=== PATIENT | female | born 1945 | race Caucasian/White ===

== ENCOUNTER 2017-12-02 09:03 | Day surgery (SDC) | payer MEDICARE, OTHER, SELFPAY ==
[2017-12-02] VITALS (7 sets, daily range): BP systolic 138–152; BP diastolic 68–77; PULSE 64–77; RESP 16–18; TEMP 36–36.5; O2SAT 97–99; BMI 25.2
[2017-12-02] MEDS: Mupirocin Ointment 22gm Tube 1 APPLIC (12:46)
--- NOTE | 2017-12-02 13:48 | PCM.IMDPSTOP ---
Immediate Post-Op Note Date of Procedure: 12/02/17 Primary Surgeon/Physician: Hector Christopher x ray examiner of aircraft: Jose Olivas. 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 Post-Operative Diagnosis: Same. 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 Description of Surgical Findings:: 72 year old female presents with a lesion on his left upper medial forehead by the hairline that had increased in size over the last several months. It developed some scabbing and irregular borders. It is erythematous with some ulceration. She denied any bleeding. The lesion was biopsied by her PCP, Dr. Billings, on 11/04/17, and the pathology showed squamous cell carcinoma in situ. 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 Size of skin graft left upper medial forehead by hairline - 5 x 4.2 cm. Estimated Blood Loss: 10 ml. Specimen's removed: Squamous cell carcinoma in situ [facility] Drains: None. Type of Anesthesia:: Local MAC - xylocaine with epinephrine and IV sedation. - Admit VTE Documentation VTE Present on Admission: No VTE Mechan Device Prophylaxis: SCD's VTE Pharm Prophylaxis ordered?: No
--- NOTE | 2017-12-02 13:55 | PCM.DC ---
You will use the following diet at home:: No restrictions Discharge Activity: May Not Shower - until the forehead skin graft dressing is removed in the office., - - keep head elevated. no heavy lifting. May shower in (days): 6 - after changing forehead skin graft dressing in office. May resume sexual activity in: 10-14 days Ice area for (Minutes): 5 - as needed for facial swelling. Weight Bearing Status: Weight bearing as tolerated Lifting Restrictions: 10 lbs. Keep extremity elevated above heart level: - - elevate head. Call your doctor if your incision/area has: Continuous Slow Oozing, Sudden Increased Bleeding, Increased Pain/ Swelling, Increased Redness, Foul Smelling Discharge, Swelling at the incision site Call your doctor if you observe: Fever of 101 or Higher, Coldness, Increased Pain, Shortness of breath, Chest pain, Calf discomfort, Uncontrolled pain Suture Line Care: - - after skin graft dressing forehead removed in the office, apply antibiotic ointment to skin graft and suture lines daily. Change Dressing in (Days):: 2 - neck dressings only. Remove Dressing in (days):: 6 - will remove forehead skin graft dressing in the office. Cleanse incision/area with: - - may get skin graft wet in the shower after the forehead skin graft dressing is removed in the office. Allergies/Adverse Reactions: Allergies No Known Allergies Allergy (Unverified 11/27/17 14:36) Medications to take at Discharge clopidogrel 75 mg tablet 75 mg PO QDAY 11/14/17 lisinopril 20 mg tablet 20 mg PO QDAY 11/14/17 pravastatin 40 mg tablet 40 mg PO QDAY 11/14/17 Clindamycin HCl [Cleocin] 300 mg PO TID #21 cap 12/02/17 Lactobacillus Acidophilus/Fos [Acidophilus Probiotic Tablet] 1 ea PO BID #20 tab 12/02/17 Oxycodone HCl/Acetaminophen [Percocet 5/325] 1 - 2 tab PO 4X/DAY PRN PRN 4 Days #30 tab 12/02/17 The following prescriptions were given: Oxycodone HCl/Acetaminophen [Percocet 5/325] 1 - 2 tab PO 4X/DAY PRN PRN 4 Days #30 tab PRN Reason: Pain Lactobacillus Acidophilus/Fos [Acidophilus Probiotic Tablet] 1 ea PO BID #20 tab Clindamycin HCl [Cleocin] 300 mg PO TID #21 cap Primary Care Physician: River Billings [Primary Care Provider] - Test Results: Test results from this visit will be discussed in further detail at your follow-up appointment, if applicable. Please Follow Up With: Hector Christopher MD When: friday12/08/17. call [phone] for appt. Proposed Discharge Date: 12/02/17
--- NOTE | 2017-12-02 18:37 | PCM.OPRPT ---
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 Post-Operative Diagnosis: Same. 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 Description of Surgical Findings:: 72 year old female presents with a lesion on his left upper medial forehead by the hairline that had increased in size over the last several months. It developed some scabbing and irregular borders. It is erythematous with some ulceration. She denied any bleeding. The lesion was biopsied by her PCP, Dr. Billings, on 11/04/17, and the pathology showed squamous cell carcinoma in situ. Patient was informed of the risks and complications of the procedure including alternatives to surgery. These were discussed with the patient personally. Patient voices understanding and wishes to proceed. Some of the risks and complications were included in a form from the [employer]. Size of skin graft left upper medial forehead by [facility] - 5 x 4.2 cm. 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 Type of Anesthesia:: Local MAC - xylocaine with epinephrine and IV sedation. Specimen's removed: Squamous cell carcinoma in situ left upper medial forehead by [facility] to Pathology. Drains: None. Estimated Blood Loss (mL): 10 ml. Description of Procedure: Patient was taken to OR in supine position and was given IV sedation. The face and neck were prepped and draped in the usual fashion. SCD's were placed for DVT prophylaxis. Perioperative antibiotics were given intravenously. The forehead carcinoma and bilateral neck areas were infiltrated with xylocaine and epinephrine. After waiting 5 minutes for the anesthetic to take effect, I excised the ulcerated squamous cell carcinoma in situ with a 1 cm margin in all directions down into the subcutaneous tissue. A suture was marked at the 12 oclock position for pathology orientation. It was then sent to Pathology for analysis to rule out carcinoma at the margins. The size of the defect for the skin graft was 5 x 4.2 cm or 21 cm2. I excised ellipses of skin from the bilateral neck area down into the subcutaneous tissue. The subcutaneous tissue was removed from the undersurface of the dermis thus fashioning a full thickness skin graft. The skin grafts were placed in saline. The donor incisions were closed in multiple layers after hemostasis was obtained with electrocautery. The deep dermis and subcutaneous tissue was approximated with 5-0 Monocryl interrupted sutures. The skin was approximated with 5-0 Prolene vertical mattress interrupted sutures. Antibiotic ointment was applied to the suture lines followed by Op-Site dressings. The full thickness skin grafts were placed in the defect on the left upper medial forehead by the hairline and secured to the skin edge with 5-0 Chromic interrupted sutures. 5-0 Chromic sutures were also placed for central quilting stabilization. Antibiotic ointment was applied to the skin graft followed by xeroform gauze and cotton balls soaked in saline and secured with 4-0 Nylon tie-over stent suture dressing. Patient tolerated the procedure well and was sent to PACU in satisfactory condition. She will be sent home in satisfactory condition on antibiotics and pain medication. She will keep her head elevated during the initial postop period. She will followup in the office in a week for a wound check with removal of the skin graft dressing as well as for discussion of the pathology report and to remove the sutures. Grafts/Implants Used: None. - Complications None. - Admit VTE Documentation VTE Present on Admission: No VTE Mechan Device Prophylaxis: SCD's VTE Pharm Prophylaxis ordered?: No Code Visit Surgery Charges CPT - 11351 ICD-10 - D04.39 58982 D04.39 62572 D04.39
--- NOTE | 2017-12-03 | LES_PTH ---
PATIENT: MARIE BLAIR LOC: [facility] [place] U#:[id number] AGE/SX: 72/F ROOM: RE12/02/[address]: Dr. Hector Christopher MD : 1945 BED: DIS: 12/02/2017 SPEC #: [id number] RECD: 12/03/17 13:01 STATUS: LISS APRIL #: [id number] CECILIA: 12/03/17 00:[address]: Hector Christopher DEPT: SURGICAL PATHOLOGY RECD BY: Antony Matthews ENTERED: 12/03/17 13:02 SP TYPE: Lesion OTHR DR: Dr. River Billings MD Tissues: Skin of forehead Procedures: Surgery Specimen Level IV HEADER OPERATION: Excision lesion, skin grafting, upper medial forehead PRE-OP DIAGNOSIS: Squamous cell carcinoma in situ of skin of forehead TISSUE SUBMITTED: Squamous cell carcinoma skin of forehead, suture at 12 o?clock MICROSCOPIC DIAGNOSIS Upper medial forehead skin lesion, excisional biopsy: Squamous cell carcinoma in situ, completely excised. Actinic keratosis and solar elastosis. JENNIFER:gita 12/04/17 COMMENT Case has been reviewed in consultation with Dr. Garcia who concurs with the above diagnosis. IDC:AM MICROSCOPIC DESCRIPTION Slides are reviewed. GROSS DESCRIPTION Received in fixative is one container labeled with the patient's name and designated squamous cell carcinoma skin of forehead, suture at 12 o'clock. The specimen consists of an ovoid piece of dolan-white skin measuring 4 x 3 cm and up to 0.3 cm in thickness. The resection margins are inked as follows: 123 o?clock ? black, 3-6 o?clock ? blue, 6-9 o?clock ? green, 9-12 o?clock ? yellow. The specimen is serially sectioned and submitted entirely in six cassettes from one end to another end. / JENNIFER:gita 12/03/17 TC:0 CPT: 45699
== END 2017-12-02 15:34 | disposition home or self-care (01) ==
LOC: SDC 09:05 → AC 09:06
PROVIDERS: Family Provider Family Medicine; PCP Family Medicine; Visit Provider Surgery
PROC: (CPT 11646; principal; 2017-12-02 10:30)
DX: D04.39 Carcinoma in situ of skin of other parts of face (principal); L57.0 Actinic keratosis; L57.8 Other skin changes due to chronic exposure to nonionizing radiation; I65.23 Occlusion and stenosis of bilateral carotid arteries; I10 Essential (primary) hypertension; R23.3 Spontaneous ecchymoses; E78.00 Pure hypercholesterolemia, unspecified; Z86.73 Personal history of transient ischemic attack (TIA), and cerebral infarction without residual deficits; Z79.82 Long term (current) use of aspirin; Z79.01 Long term (current) use of anticoagulants; Z79.899 Other long term (current) drug therapy
CPT/HCPCS: 11646; 15240; 15241; 88305; J7120

== ENCOUNTER → 2023-03-04 | Outpatient (CLI) | payer MEDICARE, OTHER, SELFPAY ==
[2023-03-04 17:35] LABS: Absolute Lymphocyte Count 2.37 X10^3/uL (0.83-4.51); Absolute Neutrophil Count 3.8 X10^3/uL (2.0-7.7); Basophil# 0.04 X10^3/uL; Basophil% 0.6 % (0-1); Eosinophil# 0.05 X10^3/uL; Eosinophils% 0.7 % (0-5); Hematocrit 40.9 % (37-47); Hemoglobin 12.4 g/dL (12.0-15.0); Lymphocyte # 2.37 X10^3/ul (0.83-4.51); Mean Corp Hgb Conc 30.3 g/dL (32-36); Mean Corpuscular Hgb 28.5 pg (27.0-32.0); Mean Platelet Vol. 10.7 fl (6.2-12.0); Monocyte% 7.4 % (0-10); NRBC Flagged by Analyzer 0 % (0-5); Neutrophil # 3.79 X10^3/uL (2.7-7.7); Platelet Count 273 K/mm3 (150-450); RBC Distribution Width CV 13.4 % (11.6-14.6); RBC Distribution Width SD 46.4 fl (35.1-43.9); Red Blood Count 4.35 M/mm3 (4.2-5.4); White Blood Count 6.8 K/mm3 (4.4-11.0)
[2023-03-04 18:17] LABS: AST(SGOT) 16 U/L (15-37); Alanine Aminotransfer ALT/SGPT 21 U/L (13-56); Albumin, Serum 3.9 g/dL (3.2-5.0); Alkaline Phosphatase 72 U/L (45-117); Anion Gap 6 (5-15); BUN 16 mg/dL (7-18); Calcium,Total 9.4 mg/dL (8.5-10.1); Chloride 107 mmol/L (98-107); Cholesterol 157 mg/dL (200); Creatinine, Serum 0.76 mg/dL (0.55-1.02); EST Glomerular Filtration Rate 78 mL/min (>60); Est Glom Filt Rate - Afr Amer 94 mL/min (>60); Globulin 3.8 g/dL (2.2-4.2); Glucose 91 mg/dL (74-106); High Density Lipoprotein 76 mg/dL; Potassium 4.3 mmol/L (3.5-5.1); Protein, Total 7.7 g/dL (6.4-8.2); Sodium Level 140 mmol/L (136-145); Thyroid Stim Hormone (TSH) 1.18 uIU/mL (0.358-3.74); Triglycerides 92 mg/dL; Very Low Density Lipoprotein 18 mg/dL (5-40)
== END | disposition home or self-care (01) ==
LOC: MFPLAB 15:34
PROVIDERS: PCP Family Medicine; Visit Provider Family Medicine
DX: I10 Essential (primary) hypertension (principal)
CPT/HCPCS: 36415; 80053; 80061; 84443; 85025

== ENCOUNTER → 2023-11-07 | Outpatient (CLI) | payer MEDICARE, OTHER, SELFPAY ==
--- NOTE | 2023-11-07 08:41 | US_ITS ---
ACR Level 3 findings have been noted. An addendum which confirms receipt of the report will follow. HISTORY: RUQ pain. TECHNIQUE: Guevara scale and color doppler imaging was performed of the right upper quadrant. 89 images. COMPARISON: None. FINDINGS: LIVER: 14.3 cm in length. Homogeneous echotexture without focal lesion demonstrated. No intrahepatic ductal dilatation. MAIN PORTAL VEIN: Patent with flow in the appropriate direction. COMMON BILE DUCT: 7 mm in diameter. GALLBLADDER: Shadowing gallstones identified with heterogeneous appearance of the gallbladder. 5 mm wall thickness. No pericholecystic fluid. Sonographic Chin sign negative. PANCREAS: Visualized proximal portion unremarkable. RIGHT KIDNEY: 9.9 cm in length. No hydronephrosis or gross renal mass demonstrated. US/Abdomen Limited IMPRESSION: Cholelithiasis with gallbladder wall thickening and heterogeneous appearance of the gallbladder, raising the possibility of gallbladder mass rather than acute cholecystitis. Consider correlation with CT with contrast or MRI/MRCP. Borderline dilated common bile duct. Electronically Signed: Snehal Coffman MD at 10:09 EDT ,
== END | disposition home or self-care (01) ==
PROVIDERS: PCP Family Medicine; Referring Provider Family Medicine; Visit Provider Family Medicine
DX: I10 Essential (primary) hypertension (principal)
CPT/HCPCS: 76705

== ENCOUNTER → 2023-11-11 | Outpatient (CLI) | payer MEDICARE, OTHER, SELFPAY ==
--- NOTE | 2023-11-11 12:53 | CT_ITS ---
We are attempting to reach an attending provider to discuss findings. An addendum with communication details will be sent when the communication is complete. STUDY: CT ABDOMEN WITH CONTRAST REASON FOR EXAM: Female, 78 years old. GALLBLADDER MASS RADIATION DOSAGE (If Supplied By Facility): CTDIvol = ( 10.93 ) mGy, DLP = ( 390.05 ) mGycm TECHNIQUE: Transaxial images were obtained post I.V. administration of Oral and amp; IV Gastrografin and amp; 75mL Isovue-300, and with oral contrast. Sagittal and coronal images were reconstructed. Individualized dose optimization techniques were used for this CT. COMPARISON: Ultrasound 11/07/2023 FINDINGS: The visualized lung bases are unremarkable. The visualized portions of the heart are within normal limits. Elevated right hemidiaphragm. Normal liver. Contracted gallbladder with a multiple gallstones wall thickening and stranding in the fat surrounding the fundus the gallbladder worrisome for acute cholecystitis. Mild intrahepatic biliary ductal dilatation. Normal spleen. Normal pancreas. Normal bilateral adrenal glands. Normal right kidney. Normal left kidney. Normal visualized stomach. Normal small intestine. There are multiple colonic diverticula consistent with diverticulosis. The appendix is visualized and appears normal. Normal abdominal aorta. Normal inferior vena cava. Normal retroperitoneum. Normal abdominal wall. Mild dextroscoliosis lumbar spine with degenerative disc disease. CT/Abdomen WITH IV Contrast IMPRESSION: Suspect acute cholecystitis and clinical correlation is recommended. Electronically Signed: Jerry Kolb MD at 12:09 EDT ,
[2023-11-11 14:33] LABS: CREATININE FINGERSTICK < 1.0 mg/dL (0.55-1.02); EGFR FINGERSTICK > 60.0000 mL/min (>60)
== END | disposition home or self-care (01) ==
PROVIDERS: PCP Family Medicine; Referring Provider Family Medicine; Visit Provider Family Medicine
DX: K82.8 Other specified diseases of gallbladder (principal)
CPT/HCPCS: 74160; Q9967

== ENCOUNTER 2023-11-18 08:54 | Emergency (ER) | payer MEDICARE, OTHER, SELFPAY ==
[2023-11-18] VITALS (8 sets, daily range): BP systolic 143–173; BP diastolic 79–126; PULSE 71–100; RESP 16–18; TEMP 36.3–36.7; O2SAT 94–99; BMI 23.6
--- NOTE | 2023-11-18 09:17 | US_ITS ---
STUDY: ABDOMINAL ULTRASOUND - RIGHT UPPER QUADRANT REASON FOR VISIT: Female, 78 years old ABDOMEN PAIN TECHNIQUE: Ultrasound evaluation of the right upper quadrant was performed with real-time and static zhou-scale imaging. TECHNICAL QUALITY: Limited. Examination limited by bowel gas. COMPARISON: Comparison is made with prior study November 07, 2023. FINDINGS: Liver: The liver measures 14.9 cm. There is increased echogenicity consistent with fatty infiltration. The bile ducts are within normal limits. There is hepatic color flow. The direction of portal flow is hepatopetal. There is no demonstrated mass lesion. Gallbladder: Normal distended gallbladder. The gallbladder wall is thickened and measures 7.4 mm. There is a negative sonographic Chin''s sign. There is pericholecystic fluid. There are multiple echogenic structures within the gallbladder, consistent with multiple gallstones. Common Bile Duct (C.B.D.): The common bile duct is dilated and measures 9 mm. Questionable stone in the common bile duct measuring 8 mm x 5 mm x 5 mm. Pancreas: Normal size of the head, body of the pancreas. The tail portion is obscured due to overlying bowel gas. There is normal echogenicity of the pancreas. There is no demonstrated pancreatic mass or cyst. Right Kidney: Normal size of the right kidney. The right kidney measures 9.7 cm x 5.1 cm x 3.5 cm. Normal renal cortex. The right cortex measures 1.1 cm. There is no demonstrated renal mass or cyst. There is no right hydronephrosis. US/Gallbladder IMPRESSION: Fatty infiltration of the liver. Multiple gallstones and thickened gallbladder wall. Small amount of pericholecystic fluid. Dilated common duct with possible calculus within the common bile duct. Electronically Signed: Martin James MD at 11:00 EDT ,
--- NOTE | 2023-11-18 09:18 | ED.VIS.GI ---
HPI HPI - GI History of Present Illness Chief Complaint: Abd Pain Informant: patient Abdominal Pain/Flank Pain Onset: Days Context: Gradual Onset Timing: Continuous Location: RUQ Current Severity: Mild Maximum Severity: Mild Worsened by: Nothing Relieved by: Nothing Narrative Narrative: 78-year-old female history of recently diagnosed gallstones and hypertension. She has had a prior appendectomy. Was diagnosed with gallstones and has been having intermittent abdominal pain. She was supposed to see general surgery today Dr. Madrigal. Office called her and 1 to come to the emergency department instead. Prior similar symptoms: Yes Recent Illness/Hospitalization: No PFSH PFSH Medical History Squamous cell carcinoma in situ Skin lesion Atherosclerosis of both carotid arteries Pure hypercholesterolemia Benign essential HTN Home Medications ?Medication ?Instructions ?Recorded ?Last Taken ?Type lisinopril 20 mg tablet 10 mg PO DAILY BLOOD PRESSURE 11/14/17 12/02/17 07:30 History atorvastatin 20 mg tablet 20 mg PO DAILY CHOLESTEROL 11/18/23 Unknown History Allergy/AdvReac Type Severity Reaction Status Date / Time No Known Allergies Allergy Verified 11/18/23 08:55 Family History Unknown No problems noted. Family History no significant family his Surgical History History of squamous cell carcinoma excision Social History Smoking Status: Never smoker alcohol intake: never substance use type: does not use additional social history: DOES USE ASPIRIN DOES NOT USE IBUPROFEN ROS ROS ED ROS Narrative Right upper quadrant abdominal pain Review of Systems ROS Unobtainable: Denies due to encephalopathy Constitutional Constitutional ED: Denies chills or fever(s) ENT ENT ED: Denies ear pain Cardiovascular Cardiovascular: Denies chest pain Respiratory/Chest Respiratory/Chest: Denies cough or dyspnea Gastrointestinal Gastrointestinal: Reports abdominal pain Genitourinary Genitourinary ED: Denies dysuria or hematuria Musculoskeletal Musculoskeletal: Denies arthralgias Integumentary Denies abscess or Abrasions Neurologic Neurologic: Denies headache(s) Psychiatric Psychiatric: Denies anxiety or depression Endocrine Endocrinology: Denies polydipsia or polyphagia Hematologic/Lymphatic Hematologic/Lymphatic: Denies easy bleeding or easy bruising Allergic/Immunologic Allergic/Immunologic ED: Denies mouth swelling, tongue swelling or urticaria EXAM Physical Exam Narrative Exam Narrative: 78-year-old female no acute distress. Vital signs stable afebrile. She is sitting upright in bed. at bedside. She is in no distress. H EENT exam unremarkable. Moist mucous membranes. Neck nontender. Lungs clear. Heart regular rate and rhythm no murmur. Rate about 90. Abdomen is soft nondistended. Normal bowel sounds without peritoneal signs. She does have tenderness in the right upper quadrant. Right lower quadrant and left-sided abdomen are nontender. No hernia or mass. No obstruction. Back nontender. Moving all 4 extremities. Nontender no edema. She is awake and alert. No focal motor deficits. Const Vital Signs: 11/18/23 08:55 11/18/23 10:53 Temperature 97.3 F L Temperature Source Temporal Pulse Rate 100 73 Respiratory Rate 18 16 Blood Pressure 150/82 H 158/84 H Blood Pressure Mean 104 108 Pulse Ox 98 97 Oxygen Delivery Method Room Air Room Air Positive well nourished and well developed; Negative for obese, cachectic, contractures or unkempt General Appearance ED: well developed and NAD; Negative for unkempt, cachectic, contractures or pallor Nutritional Appearance: Negative for cachectic or obese HEENT Reports moist mucous membranes normocephalic and atraumatic; Negative for trauma or tenderness Eyes PERRL and EOMs intact bilaterally General Eye ED: Negative for pale conjunctiva or scleral icterus Neck no lymphadenopathy, supple and no JVD General: Negative for tenderness Carotids: Negative for other Lymph Lymphatic: Negative for other Resp normal respiratory effort and clear to auscultation bilaterally Effort and Inspection: Negative for respiratory distress Auscultation: Negative for rales, rhonchi, wheezes or diminished lung sounds Cardio regular rate, regular rhythm, S1 normal heart sound, S2 normal heart sound and no murmurs Rate: Negative for bradycardia or tachycardic Rhythm: Negative for abnormal rhythm GI non-distended and no masses; Negative for non-tender GI Narrative: Right upper quadrant tenderness to deep palpation. Inspection: Negative for abdominal distention Auscultation: normoactive bowel sounds Palpation: tender; Negative for guarding or rebound tenderness present Back/Spine no CVA tenderness Neuro CN's II-XII intact bilaterally and moves all extremities Sensorium / Orientation: alert, oriented to person, oriented to place and oriented to time Motor Exam: strength 5/5 throughout Psych mental status grossly normal and thought process normal Appearance: Negative for unkempt Attitude: No agitated Mood & Affect: Negative for depressed, anxious or tearful Skin no wounds General Skin Exam: Negative for jaundice or pallor Lesions: no lesions Rashes: no rashes Trauma: Negative for abrasion Nails: Negative for discolored MDM MDM MDM Narrative Medical decision making narrative: 78-year-old female with right upper quadrant pain and diagnosis recently of gallstones. She will be evaluated for possible acute cholecystitis versus choledocholithiasis versus other. Screening labs and ultrasound. Currently she does not anything for pain or nausea. Repeat exam patient doing well 11:50 AM. We discussed all of her test results. Given that she has gallstones in the common bile duct she will be admitted to the hospitalist for GI to do an ERCP. I did speak to Dr. Oden of GI. And then surgery can decide if and when they want to do a cholecystectomy. History & Record Review Discussion w/independent historian: Patient and Family Additional record(s) reviewed:: Prior inpatient record, Prior outpatient record and Prior ED visit Lab Data Attestation: I reviewed the patient's lab results. Lab results narrative: CBC white count 7.5. H&H 11.7 and 37. Platelets 333. Chemistry showed gap 4. Normal BUN and creatinine. Glucose 99. Liver enzymes normal. Not elevated. Lipase 24. Labs: Laboratory Results - last 24 hr 11/18/23 09:24 WBC 7.5 RBC 4.13 L Hgb 11.7 L Hct 37.3 MCV 90.3 MCH 28.3 MCHC 31.4 L RDW Std Deviation 47.6 H RDW Coeff of Adelfo 14.4 Plt Count 333 MPV 9.5 Immature Gran % (Auto) 0.300 Neut % (Auto) 61.3 Lymph % (Auto) 26.5 Kings % (Auto) 9.4 Eos % (Auto) 2.0 Baso % (Auto) 0.5 Absolute Neuts (auto) 4.6 Absolute Lymphs (auto) 1.98 Nucleated RBC % 0 Sodium 140 Potassium 4.5 Chloride 108 H Carbon Dioxide 28.0 Anion Gap 4 L BUN 15 Creatinine 0.81 Estim Creat Clear Calc 57.74 Est GFR (MDRD) Af Amer 88 Est GFR (MDRD) Non-Af 73 BUN/Creatinine Ratio 18.5 Glucose 99 Calcium 10.3 H Total Bilirubin 0.60 AST 10 L ALT 16 Alkaline Phosphatase 72 Total Protein 7.4 Albumin 3.2 Globulin 4.2 Albumin/Globulin Ratio 0.8 L Lipase 24 Radiography Diagnostic Testing: Clinical Impression(s) from Imaging Studies Gallbladder Ultrasound 11/18/23 09:17 IMPRESSION: Fatty infiltration of the liver. Multiple gallstones and thickened gallbladder wall. Small amount of pericholecystic fluid. Dilated common duct with possible calculus within the common bile duct. Electronically Signed: Martin James MD at 11:00 EDT , Discharge Plan Triage Chief Complaint: Abd Pain ED Provider: Jose Duke Dx/Rx/DC Orders Clinical Impression: Abdominal pain, Gallstones, Choledocholithiasis Prescriptions: No Action lisinopril 20 mg tablet 10 mg PO DAILY atorvastatin 20 mg tablet 20 mg PO DAILY Primary Care Provider: Joe Tim Referrals: Joe Tim MD [Primary Care Provider] - Print Language: Lithuanian Disposition Disposition: Acute Care [facility]
[2023-11-18 09:29] LABS: Absolute Lymphocyte Count 1.98 X10^3/uL (0.83-4.51); Absolute Neutrophil Count 4.6 X10^3/uL (2.0-7.7); Basophil# 0.04 X10^3/uL; Basophil% 0.5 % (0-1); Eosinophil# 0.15 X10^3/uL; Hematocrit 37.3 % (37-47); Hemoglobin 11.7 g/dL (12.0-15.0); Lymphocyte # 1.98 X10^3/ul (0.83-4.51); Lymphocyte % 26.5 % (19-41); Mean Corp Hgb Conc 31.4 g/dL (32-36); Mean Corpuscular Hgb 28.3 pg (27.0-32.0); Mean Corpuscular Volume 90.3 fL (81-99); Mean Platelet Vol. 9.5 fl (6.2-12.0); Monocyte% 9.4 % (0-10); NRBC Flagged by Analyzer 0 % (0-5); Neutrophil # 4.59 X10^3/uL (2.7-7.7); Neutrophil % 61.3 % (47-70); Platelet Count 333 K/mm3 (150-450); RBC Distribution Width CV 14.4 % (11.6-14.6); RBC Distribution Width SD 47.6 fl (35.1-43.9); Red Blood Count 4.13 M/mm3 (4.2-5.4); White Blood Count 7.5 K/mm3 (4.4-11.0)
[2023-11-18 09:55] LABS: ALB/GLOB Ratio 0.8 RATIO (0.9-2.4); AST(SGOT) 10 U/L (15-37); Alanine Aminotransfer ALT/SGPT 16 U/L (13-56); Albumin, Serum 3.2 g/dL (3.2-5.0); Alkaline Phosphatase 72 U/L (45-117); Anion Gap 4 (5-15); BUN 15 mg/dL (7-18); BUN/Creat Ratio 18.5 RATIO (10-20); Calcium,Total 10.3 mg/dL (8.5-10.1); Chloride 108 mmol/L (98-107); Creatinine, Serum 0.81 mg/dL (0.55-1.02); EST Glomerular Filtration Rate 73 mL/min (>60); Est Glom Filt Rate - Afr Amer 88 mL/min (>60); Estimated Creatinine Clearance 57.74 ml/min; Globulin 4.2 g/dL (2.2-4.2); Glucose 99 mg/dL (74-106); Lipase 24 U/L (13-75); Potassium 4.5 mmol/L (3.5-5.1); Protein, Total 7.4 g/dL (6.4-8.2); Sodium Level 140 mmol/L (136-145)
--- NOTE | 2023-11-18 12:01 | HP.PCM.HOS_ITS ---
HPI - General General Date of Admission: 11/18/23 Date of Service: 11/18/23 Chief Complaint: Abdominal pain HPI Narrative The patient is a 78 y/o F w/ PMHx: Hx TIA, HTN, HLD, Carotid disease, Possible chronic normocytic anemia who presents to the [facility] ED on 11/18/23 with abdominal discomfort recently diagnosed with gallstones as well as hypertension with intermittent abdominal colicky pain with plan for evaluation by general surgery on day of presentation specifically Dr. Madrigal; however, she was called by the surgery office and recommended that she present to the ED for further evaluation to be cautious. She reports the pain is being gradual in onset over the last several days and now continuous specifically focal to the right upper quadrant with tenderness to palpation in the right quadrants. In the ED she notes mild nausea but no recent emesis. She notes that this has been ongoing for at least a week and not abating. Workup in the ED included T97.3, heart rate 100, BP 150/82, respiratory rate 18, 98% room air, CBC with WC 7.5, hemoglobin 0.7, MCV 90.3, platelet 333 without marked shift, CMP with chloride 108, calcium 10.3, hepatic profile unremarkable otherwise, gallbladder ultrasound with fatty infiltration of the liver, multiple gallstones and thickened gallbladder wall with a small amount of pericholecystic fluid, dilated common bile duct with possible calculus within the common bile duct. ED discussed case with gastroenterology for possible ERCP. Discussed patient presentation with Dr. Duke and patient will be administered IV Zosyn. [facility] Medical History (Updated 11/18/23 @ 15:[address] Marah Sebastian MD) History of TIA (transient ischemic attack) Squamous cell carcinoma in situ Atherosclerosis of both carotid arteries Pure hypercholesterolemia Benign essential HTN Home Medications ?Medication ?Instructions ?Recorded ?Last Taken ?Type lisinopril 20 mg tablet 10 mg PO DAILY BLOOD PRESSURE 11/14/17 12/02/17 07:30 History atorvastatin 20 mg tablet 20 mg PO DAILY CHOLESTEROL 11/18/23 Unknown History Allergy/AdvReac Type Severity Reaction Status Date / Time No Known Allergies Allergy Verified 11/18/23 08:55 Family History (Updated 11/18/23 @ 15:[address] Marah Sebastian MD) Mother CVA (cerebral vascular accident) Hypertension Father CAD (coronary artery disease) Hypertension Heart disease Myocardial infarction Family History no significant family his Surgical History S/P appendectomy History of squamous cell carcinoma excision Social History household members: spouse Smoking Status: Never smoker alcohol intake: never substance use type: does not use additional social history: DOES USE ASPIRIN DOES NOT USE IBUPROFEN ROS ROS Narrative Admission Review of Systems: CONSTITUTIONAL: No weight loss, fever, chills, + weakness or fatigue. HEENT: Eyes: No visual loss, blurred vision, double vision or yellow sclerae. Ears, Nose, Throat: No hearing loss, sneezing, congestion, runny nose or sore throat. SKIN: No rash or itching, lesions, wounds. CARDIOVASCULAR: No chest pain, chest pressure or chest discomfort, palpitations, edema, orthopnea, syncopal events. RESPIRATORY: No shortness of breath, cough or sputum, wheezing, hemoptysis. GASTROINTESTINAL: + anorexia, nausea, abdominal pain. No vomiting, diarrhea, melena, BRBPR. GENITOURINARY: No dysuria, frequency, urgency or retention. NEUROLOGICAL: No headache, dizziness, syncope, paralysis, ataxia, numbness or tingling in the extremities, focal weakness, change in bowel or bladder control, seizure. MUSCULOSKELETAL: + muscle, back pain, joint pain or stiffness. HEMATOLOGIC: + anemia, easy bleeding/bruising. LYMPHATICS: No enlarged nodes. No history of splenectomy. PSYCHIATRIC: No history of depression or anxiety. ENDOCRINOLOGIC: No reports of sweating, cold or heat intolerance. No polyuria or polydipsia. ALLERGIES: No history of asthma, hives, eczema or rhinitis. Vital Signs Vital Signs Vital Signs: 11/18/23 08:55 11/18/23 10:53 Temperature 97.3 F L Temperature Source Temporal Pulse Rate 100 73 Respiratory Rate 18 16 Blood Pressure 150/82 H 158/84 H Blood Pressure Mean 104 108 Pulse Ox 98 97 Oxygen Delivery Method Room Air Room Air Weight Weight: 155 lb 11.2 oz Body Mass Index (BMI) 23.6 Physical Exam Narrative Physical Examination: General: Awake, alert, oriented x 3 and cooperative, seated upright in the ED bed, fatigued, notes pain is currently controlled except with deep palpation, rates it 2-3 out of 10 when occurring, worse after oral intake. Skin: Normal color, normal turgor, no icterus, no cyanosis. HEENT: AT/NC, EOMI, PERRLA, moderately dry MM, no carotid bruits or JVD noted. Lungs: Mildly diminished, greater bases, proper effort, no rales, ronchi or wheezing. Heart: Regular rate and rhythm; no gallop, rub audible. Abdomen: Soft, discomfort to deeper right upper quadrant palpation with no rebound or guarding at this time, nondistended, hyperactive BS, no appreciated HSM. Extremities: No cyanosis, clubbing, or edema. Neurological: Patient awake, alert, oriented as noted, cognitive function intact; pupils equally reactive to light and accommodation, cranial nerves grossly normal, moving all 4 extremities, no focal deficits, strength mildly to moderately globally decreased secondary to acute presentation complaints. Psychiatric: Affect appears fatigued, no acute evidence of depressive or anxiety feelings. Results Lab / Micro Data 11/18/23 09:24 11/18/23 09:24 Labs: Laboratory Results - last 24 hr 11/18/23 09:24: WBC 7.5, RBC 4.13 L, Hgb 11.7 L, Hct 37.3, MCV 90.3, MCH 28.3, M CHC 31.4 L, RDW Std Deviation 47.6 H, RDW Coeff of Adelfo 14.4, Plt Count 333, MPV 9.5, Immature Gran % (Auto) 0.300, Neut % (Auto) 61.3, Lymph % (Auto) 26.5, [place] % (Auto) 9.4, Eos % (Auto) 2.0, Baso % (Auto) 0.5, Absolute Neuts (auto) 4.6, Absolute Lymphs (auto) 1.98, Nucleated RBC % 0, Sodium 140, Potassium 4.5, C hloride 108 H, Carbon Dioxide 28.0, Anion Gap 4 L, BUN 15, Creatinine 0.81, Estim Creat Clear Calc 57.74, Est GFR (MDRD) Af Amer 88, Est GFR (MDRD) Non-Af 73, BUN/Creatinine Ratio 18.5, Glucose 99, Calcium 10.3 H, Total Bilirubin 0.60, AST 10 L, ALT 16, Alkaline Phosphatase 72, Total Protein 7.4, Albumin 3.2, Globulin 4.2, Albumin/Globulin Ratio 0.8 L, Lipase 24 Imaging Radiology Impression Gallbladder Ultrasound 11/18/23 09:17 IMPRESSION: Fatty infiltration of the liver. Multiple gallstones and thickened gallbladder wall. Small amount of pericholecystic fluid. Dilated common duct with possible calculus within the common bile duct. Electronically Signed: Martin James MD at 11:00 EDT , Assessment & Plan Assessment/Plan (1) Choledocholithiasis: PLAN: Plan The patient is a 78 y/o F w/ PMHx: HTN, HLD, Carotid disease, Possible chronic normocytic anemia who presents to the [facility] ED on 11/18/23 with abdominal discomfort recently diagnosed with gallstones as well as hypertension with intermittent abdominal colicky pain with plan for evaluation by general surgery on day of presentation specifically Dr. Madrigal; however, she was called by the surgery office and recommended that she present to the ED for further evaluation to be cautious. #1. Acute abdominal pain secondary to acute choledocholithiasis with acute cholecystitis with currently normal appearing LFT/bilirubin of note: Discussed patient with Dr. Arriaga operations controller for surgery and given the timeline of onset and appearance of GB he recommends placement of cholecystostomy tube unfortunately IR is not available. Discussed with ED physician and patient will be transferred to tertiary facility for ERCP coupled with cholecystostomy tube. If they are unable to obtain a transfer bed in a timely manner Will admit to medical surgical floor, maintain on IVFs, NPO, request GI involvement as well as surgery involvement in the interim until transfer obtained, maintain on PPI, IV/po pain control, trend CMP, continue IV zosyn. #2. Normocytic anemia, possibly chronic, poor comparison data available: Admission hemoglobin 11.7, MCV 90.3, will continue to trend CBC and further investigate pending repeat level. #3. Hypertension: Continue home regimen including lisinopril, PRN hydralazine. #4. Hyperlipidemia: Given choledocholithiasis in case LFTs significantly rise will temporally hold statin therapy, resume once appropriate. #5. Carotid disease: In case of operative intervention needs of temporally hold aspirin therapy, continue hypertensive regimen, temporally on statin therapy as noted, resume once appropriate. #6. History TIA: Patient remotely took Plavix but has not in a long time she notes, would continue hypertensive regimen, temporally hold statin therapy in case rise of bilirubin/LFTs given choledocholithiasis concurrently. #7. DVT prophylaxis: SCDs, hold chemoprophylaxis given need for cholecystostomy tube and ERCP as noted awaiting transfer versus admission temporarily until bed availability at tertiary facility. #8. CODE status: Patient HCPOA is her and living will is currently in place. Discussed CODE status at length including difference between FULL code, DNR-CCA and DNR-CC status. Following discussions about the differences in these status, requested Full code status. Advanced Care Planning Face to Face Time: 16 minutes. Charges/Coding Visit Charges Inpatient E&M: 81611 Init Hosp L3 Procedures Hospitalists Procedures: 44674 Advncd Care Plan 30 Min
[2023-11-18] MEDS: Piperacil/Tazobactam 4.5 GM in 0.9% Normal Saline (100mL MB+) 100 ML IV (12:18)
--- NOTE | 2023-11-18 13:03 | ED.RN ---
CALLED [facility] FOR TRANSFER AND THEY ARE CLOSED TO MED/SURG TRANSFERS
--- NOTE | 2023-11-18 16:37 | NURSING ---
CALLED FOR UPDATE, NO BED YET
[2023-11-18] MEDS: Ondansetron 4 MG/2 ML Vial IV (16:40)
[2023-11-18] MEDS: morphine 8 MG/ML Syringe 6 MG IV (16:41)
--- NOTE | 2023-11-18 16:44 | ED.RN ---
pt requests pain meds and nausea meds. orders received
--- NOTE | 2023-11-18 18:12 | NURSING ---
NO BED YET
--- NOTE | 2023-11-18 20:25 | ED.RN ---
Report called to Rosalba Rodriguez [facility]. Questions/concerns answered
== END 2023-11-18 20:13 | disposition short-term general hospital (02) ==
PROVIDERS: Emergency Provider Emergency Medicine; PCP Family Medicine; Visit Provider Emergency Medicine
DX: K80.70 Calculus of gallbladder and bile duct without cholecystitis without obstruction (principal); I10 Essential (primary) hypertension; E78.00 Pure hypercholesterolemia, unspecified; K76.0 Fatty (change of) liver, not elsewhere classified; Z90.49 Acquired absence of other specified parts of digestive tract; Z79.899 Other long term (current) drug therapy
CPT/HCPCS: 76705; 80053; 83690; 85025; 96365; 96375; 96376; 99284; A4216; J2405

== ENCOUNTER 2024-02-10 13:39 | Day surgery (SDC) | payer MEDICARE, OTHER, SELFPAY ==
[2024-02-10] VITALS (10 sets, daily range): BP systolic 126–148; BP diastolic 66–73; PULSE 65–100; RESP 16; TEMP 36–36.6; O2SAT 96–100; BMI 21.6
--- NOTE | 2024-02-10 13:53 | EKG12_ITS ---
Test Reason : PRE OP Blood Pressure : */* mmHG Vent. Rate : 79 BPM Atrial Rate : 79 BPM P-R Int : 142 ms QRS Dur : 72 ms QT Int : 372 ms P-R-T Axes : -9 69 55 degrees QTcB Int : 426 ms Sinus rhythm with occasional Premature ventricular complexes Otherwise normal ECG No previous ECGs available Confirmed by ABBIE LEWIS, JANICE ([id number]), technical writer and editor ANGELITA CARRANZA ([id number]) on 02/11/2024 2:15:16 PM Referred By: Joe Tim Confirmed By: JANICE LEIVA MD
--- NOTE | 2024-02-10 14:30 | PRE.ANES_ITS ---
ASA Classification* ASA Classification ASA Classification: 3 Assessment & Plan Anesthesia* Anesthesia Assessment Anesthesia Assessment: Discussed sedation and/or anesthesia options, risks, benefits, and alternatives with patient/parents/legal guardian/POA. Questions invited. The patient/parents/legal guardian/POA seems to understand and agrees to proceed with anesthesia plan. Reviewed the physical assessment, medical history, allergy history and patient home medications list prior to surgery/procedure/anesthetic and documented any changes. Performed airway and anesthesia risk assessments. Anesthesia Type Anesthesia Type: General History Source History Obtained from:: Patient and Chart Anesthesia Focused Assessment* Temperature: 98 F Pulse Rate: 100 Blood Pressure: 135/73 Respiratory Rate: 16 Pulse Ox: 99 Oxygen Delivery Method: Room Air Airway Assessment Mouth opens: >3 cm Mallampati Score: III Teeth Condition: Dentures (Patient has full upper denture.) and Partial (Patient has a partial on the bottom. The rest of the teeth are tight.) Neck Range of motion (ROM): Full ROM Focused Labs Anesthesia Preop lab: CBC WBC 7.5 K/mm3 (4.4-11.0) 11/18/23 09:24 RBC 4.13 M/mm3 (4.2-5.4) L 11/18/23 09:24 Hgb 11.7 g/dL (12.0-15.0) L 11/18/23 09:24 Hct 37.3 % (37-47) 11/18/23 09:24 Plt Count 333 K/mm3 (150-450) 11/18/23 09:24 CHEMISTRY Potassium 4.5 mmol/L (3.5-5.1) 11/18/23 09:24 Sodium 140 mmol/L (136-145) 11/18/23 09:24 BUN 15 mg/dL (7-18) 11/18/23 09:24 Creatinine 0.81 mg/dL (0.55-1.02) 11/18/23 09:24 Glucose 99 mg/dL (74-106) 11/18/23 09:24 TSH 1.18 uIU/mL (0.358-3.74) 03/04/23 15:34 COAG Pre-Assessment Diagnosis/Proposed Procedure Planned Operative Procedure(s): ERCP Anesthesia History 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 When Was Last Pacemaker Check QUESTION #4 FULL TEXT: You/Your Family Experience fever (hyperthermia) with Anesthesia Last Oral Intake Last Oral intake: Last Oral Intake NPO since 08:00 02/10/24 14:04 Meds taken in AM with sips of Yes 02/10/24 14:04 water? Meds patient instructed to SEE MAR 02/10/24 14:04 take am of surgery Any additional information?: Yes NPO since: 08:00 (Patient had cereal with small amount of milk at 8 AM) PONV PONV - quality control industrial engineer: PONV - quality control industrial engineer Female Yes 02/06/24 12:22 HX of Motion Sickness No 02/06/24 12:22 HX of N/V After Surgery No 02/06/24 12:22 Non-Smoker Yes 02/06/24 12:22 Duration of Surgery greater No 02/06/24 12:22 than 60 minutes Number of Risk Factors 2 02/06/24 12:22 PONV Score Moderate Risk 02/06/24 12:22 Height & Weight Height & Weight: Anesthesia: Height & Weight Height 5 ft 8 in 02/10/24 14:04 Weight: 64.41 kg 02/10/24 14:04 Body Mass Index (BMI) 21.6 02/10/24 14:04 Respiratory Assessment Respiratory Assessment - quality control industrial engineer: Respiratory Tract Infection Hx - quality control industrial engineer Hx Respiratory Tract Infection No 11/27/17 14:38 STOP Sleep Apnea STOP Sleep Apnea - quality control industrial engineer: STOP Sleep Apnea - quality control industrial engineer Hx Hypertension Yes: CONTROLLED WITH MED 02/06/24 12:22 Hx Sleep Apnea No 02/06/24 12:22 CPAP BIPAP Do you snore loudly (louder No 02/06/24 12:22 than talking or can be heard Do you often feel tired/ No 02/06/24 12:22 fatigued/ sleepy during daytime? Has anyone observed you stop No 02/06/24 12:22 breathing during sleep? STOP Results Negative 02/06/24 12:22 QUESTION #5 FULL TEXT : Do you snore loudly (louder than talking or can be heard through closed doors)? Tobacco Use History Tobacco Use History - quality control industrial engineer: Tobacco Use History - quality control industrial engineer Tobacco Use Smoking Status Never smoker 02/06/24 12:22 Hx Tobacco Use No 02/06/24 12:22 Years Smoking Packs Smoked per Day Smoking Cessation Date was within the last 15 years Hx Smoking Cessation Date Hx Smoking Cessation Counseling Hematologic Medial History Hematologic Hx - quality control industrial engineer: Hematologic Medical Hx - personal injury litigation paralegal Hx of Blood Transfusion No 02/06/24 12:22 Hx of Transfusion in last 3 No 02/06/24 12:22 Months Date of Last Transfusion (if within last 3 months) Ever experience any problems No 02/06/24 12:22 with transfusion(s)? Specify any problems Hx of Preganancy in last 3 N/A 02/06/24 12:22 Months Nurse Filling Out Transfusion NBUCHER 02/06/24 12:22 & Questions: Date: 02/06/24 02/06/24 12:22 Time: 12:24 02/06/24 12:22 Patient unable to answer at this time (ie. confused, unrespo /Reproduction History /Reproductive History - quality control industrial engineer: /Reproductive Hx- quality control industrial engineer Hx Now Gestational Age (in weeks): EDC: Hx Hx Para Hx Section SAB Active Medications Active Medications: Current Medications Generic Name Dose Route Start Last Admin Trade Name Freq PRN Reason Stop Dose Admin Lactated Ringer's 1,000 mls @ 15 mls/hr 02/10/24 14:00 IV 02/16/24 03:19 .Q48H [facility] Protocol PFSH Medical History Wears hearing aid Loss of hearing Wears glasses Wears partial dentures Wears dentures Cancer High cholesterol History of TIA (transient ischemic attack) Squamous cell carcinoma in situ Atherosclerosis of both carotid arteries Pure hypercholesterolemia Benign essential HTN Home Medications ?Medication ?Instructions ?Recorded ?Last Taken ?Type lisinopril 20 mg tablet 10 mg PO DAILY BLOOD PRESSURE 11/14/17 12/02/17 07:30 History atorvastatin 20 mg tablet 20 mg PO DAILY CHOLESTEROL 11/18/23 Unknown History capecitabine 500 mg tablet 1,500 mg PO BID 02/06/24 02/10/24 History Allergy/AdvReac Type Severity Reaction Status Date / Time No Known Allergies Allergy Verified 02/10/24 14:03 Family History Mother CVA (cerebral vascular accident) Hypertension Father CAD (coronary artery disease) Hypertension Heart disease Myocardial infarction Surgical History History of cholecystectomy S/P appendectomy History of squamous cell carcinoma excision Social History household members: spouse Smoking Status: Never smoker alcohol intake: never substance use type: does not use additional social history: DOES USE ASPIRIN DOES NOT USE IBUPROFEN Review of Systems (Anesthesia) ROS Narrative System reviewed and no additional complaints, except as documented.
--- NOTE | 2024-02-10 14:45 | FLU_PTH ---
PATIENT: MARIE BLAIR LOC: EN U#:[id number] AGE/SX: 78/F ROOM: RE02/10/[address]: Dr. Agus Oden DO : 1945 BED: DIS: 02/10/2024 SPEC #: [id number] RECD: 02/10/24 16:32 STATUS: LISS RERichard #: [id number] CECILIA: 02/10/24 14:[address]: Agus Oden DEPT: CYTOLOGY RECD BY: Mel Olivarez ENTERED: 02/11/24 07:35 SP TYPE: Fluid OTHR DR: Joe Tim MD Tissues: Biliary tract, NOS Procedures: Special Stain Group II Surgery Specimen Level IV Cytospin Fluid HEADER OPERATION: ERCP with stent removal PRE-OP DIAGNOSIS: Gallbladder cancer TISSUE SUBMITTED: Biliary stent for cytology DIAGNOSIS CYTOLOGY Biliary stent fluid for cytology (cytospin and cellblock): Negative for malignant cells. AM.mr 02/12/2024 CYTOLOGY STUDY Slides are reviewed. CYTOLOGY GROSS Received is 1 black stent measuring 12.0cm in length labeled with the patient's name and and designated per the requisition as Biliary stent. Submitted for cytology preparation including cell block. 02/11/2024 TC:5 CPT: 12358,07605
--- NOTE | 2024-02-10 15:10 | PCM.HP.BLA ---
History and Physical Date of Admission: 02/10/24 MARIE BLAIR, is a 78 F who presents to the office today for for an initial visit. She presented to [facility] with painful jaundice. She has been transferred to [facility] For the evaluation of right upper quadrant pain and jaundice. Imaging was concerning for gallbladder cancer and choledocholithiasis. She underwent ERCP and choledocholithiasis was removed at the sphincterotomy was achieved and multiple stones were removed. She had a pancreatic stent placed for post ERCP pancreatitis and she had a biliary stent placed for a stricture in the bile duct. She also went for a cholecystectomy. 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 Her biochemical profile shows a white blood cell count of 6.9, hemoglobin 11.9, platelet count of 697. She has no neutrophilic shift. Her LFTs are as follows bilirubin is 0.3, a AST of 19, ALT of 26 and alkaline phosphatase of 116 BUN/creatinine 15/.68. She comes in today because she noticed her stent is removed. ROS Const Constitutional: No fatigue, fever(s) or weight change ENT ENT: No difficulty swallowing Gastro GI: No abdominal pain, belching, bloating, change in bowel habits, change in stool character, coffee ground emesis, constipation, cramping, diarrhea, heartburn, difficulty swallowing, feeling full early, excessive flatus, incontinent of stools, Vomiting blood/hematemesis, Blood in stool, loose stools, Black,tarry stools, nausea/dyspepsia, pain with swallowing, vomiting or other Musc Musculoskeletal: Positive for back pain; No joint pain Skin Skin: No yellowing of the eye or itchy eyes Psych Psychiatric: No anxiety and No depression Endo Endocrine: No fatigue or weight change Aller/Imm Allergy/Immunologic: No itchy eyes Nickolas/Lymp Hematologic/Lymphatic: No easy bleeding or easy bruising Exam Const General: cooperative and comfortable Nutritional Appearance: average body habitus and well nourished [facility] Head: normal to inspection Ears: hearing grossly normal bilaterally Nose: external nose normal Face and sinus: normal facial exam Mouth: oral mucosae normal Throat: posterior oropharynx normal Eyes General: appearance normal, both eyes and all related structures Neck Neck: normal visual inspection Chest Chest palpation & inspection: normal inspection of the chest and normal palpation of entire chest wall Resp Effort & Inspection: normal respiratory effort Auscultation: Bilateral: Clear to Auscultation Cardio Palpation: normal PMI Rate: regular rate Rhythm: regular rhythm GI Inspection: normal to inspection Auscultation: normal bowel sounds Percussion: normal to percussion Palpation: no hepatosplenomegaly Skin General: no rashes or lesions noted Neuro General: patient alert Extrem General: normal to inspection Psych Affect: normal affect Assessment and Plan Assessment and Plan (1) Gallbladder cancer: Status: Acute Plan: 78-year-old with unfortunate past medical history of gallbladder cancer status post cholecystectomy and multiple small bowel resections. She will need to undergo stent removal. She was explained alternatives, risk, benefits of going on the same bleeding, infection, sepsis, perforation, need for emergent . She have an ASA of 3. I have examined the patient and the H&P has been reviewed. There are no clinical changes since date of exam.
--- NOTE | 2024-02-10 15:25 | RAD_ITS ---
STUDY: ERCP. REASON FOR EXAM: Female, 78 years old. Right upper quadrant pain. FLUOROSCOPY TIME (if supplied): ( 2 minutes and 37 seconds ) minutes/seconds. 24.97 mGy. TECHNIQUE: ERCP was performed by the bag worker. Fluoroscopic services was provided. COMPARISON: None. FINDINGS: Fluoroscopic services provided for ERCP. RAD/ERCP Biliary/Pancreas IMPRESSION: Fluoroscopic services provided for ERCP. Electronically Signed: Martin James MD at 10:37 EST ,
--- NOTE | 2024-02-10 16:25 | OP.CCLET_ITS ---
02/10/2024 Joe Tim Md Re : ERCP procedure for [address] [place] This procedure was performed on Saturday, February 10, 2024. My impressions and recommendations are as follows: Impressions : - A single localized biliary stricture was found in the lower third of the main bile duct. The stricture was benign appearing. - The left main hepatic duct, right main hepatic duct, entire biliary tree and common hepatic duct were moderately dilated, with a stone causing an obstruction. - Choledocholithiasis was found. Complete removal was accomplished by biliary sphincterotomy and balloon extraction. - A biliary sphincterotomy was performed. - The biliary tree was swept and stent(s) were found. - One stent was removed from the biliary tree, the common hepatic duct and the left hepatic duct. Recommendations : My findings are described in the full procedure note, which is enclosed. If I can be of further assistance, please feel free to contact me at . Sincerely, Agus Oden DO 02/10/2024 4:24:23 PM This report has been signed electronically.
--- NOTE | 2024-02-10 16:25 | OP.ERCP_ITS ---
Patient Name: Yue Street Procedure Date: 02/10/2024 3:17 PM Date of : 1945 Age: 78 Procedure: ERCP Indications: Bile duct stone(s), Stent removal, Biliary stent removal Providers: Agus Oden DO Medicines: Monitored Anesthesia Care Patient Profile: This is a 78 year old female. Refer to note in patient chart for documentation of history and physical. Patient has symptoms of chronic right upper quadrant abdominal pain and chronic jaundice. Complications: No immediate complications. Procedure: Pre-Anesthesia Assessment: - Prior to the procedure, a History and Physical was performed, and patient medications and allergies were reviewed. The patient is competent. The risks and benefits of the procedure and the sedation options and risks were discussed with the patient. All questions were answered and informed consent was obtained. Patient identification and proposed procedure were verified by the physician in the pre-procedure area. Mental Status Examination: alert and oriented. Airway Examination: normal oropharyngeal airway and neck mobility. Respiratory Examination: clear to auscultation. CV Examination: normal. Prophylactic Antibiotics: The patient does not require prophylactic antibiotics. Prior Anticoagulants: The patient has taken no anticoagulant or antiplatelet agents except for NSAID medication. ASA Grade Assessment: II - A patient with mild systemic disease. After reviewing the risks and benefits, the patient was deemed in satisfactory condition to undergo the procedure. The anesthesia plan was to use monitored anesthesia care (MAC). Immediately prior to administration of medications, the patient was re-assessed for adequacy to receive sedatives. The heart rate, respiratory rate, oxygen saturations, blood pressure, adequacy of pulmonary ventilation, and response to care were monitored throughout the procedure. The physical status of the patient was re-assessed after the procedure. After obtaining informed consent, the scope was passed under direct vision. Throughout the procedure, the patient's blood pressure, pulse, and oxygen saturations were monitored continuously. The Duodenoscope was introduced through the mouth, and advanced to the duodenum and used to inject contrast into the bile duct. The ERCP was accomplished without difficulty. The patient tolerated the procedure well. Scope In: 3:33:04 PM Scope Out: 4:15:32 PM Total Procedure Duration Time 0 hours 42 minutes 28 seconds Findings: The maintenance electrician film was normal. The esophagus was successfully intubated under direct vision. The scope was advanced to a normal major papilla in the descending duodenum without detailed examination of the pharynx, larynx and associated structures, and upper GI tract. The upper GI tract was grossly normal. A long 0.021 inch Jagwire was passed into the biliary tree. The short-nosed traction sphincterotome was passed over the guidewire and the bile duct was then deeply cannulated. Contrast was injected. I personally interpreted the bile duct images. There was brisk flow of contrast through the ducts. Image quality was adequate. Contrast extended to the main bile duct. Contrast extended to the bifurcation. Contrast extended to the hepatic ducts. Contrast extended to the entire biliary tree. Opacification of the entire opacified area, left main hepatic duct, left intrahepatic branches, right main hepatic duct, right intrahepatic branches and entire biliary tree was successful. The maximum diameter of the ducts was 13 mm. The lower third of the main bile duct contained a single localized stenosis 6 mm in length. The common hepatic duct, hepatic duct bifurcation, left main hepatic duct, right main hepatic duct and entire biliary tree were moderately dilated and diffusely dilated, with a stone causing an obstruction. The largest diameter was 15 mm. A 5 mm biliary sphincterotomy was made with a traction (standard) sphincterotome using ERBE electrocautery. There was no post-sphincterotomy bleeding. The biliary tree was swept with a 15 mm balloon starting at the upper third of the main bile duct, middle third of the main bile duct, lower third of the main duct, bifurcation, left intrahepatic duct(s), left main hepatic duct, right intrahepatic duct(s) and right main hepatic duct. Sludge was swept from the duct. All stones were removed. All stents were removed. One stent was removed from the biliary tree, the common hepatic duct and the left hepatic duct using a elizabeth forceps, Raptor grasping device and snare and sent for cytology. The stent was found to be partially occluded via the water column test. Impression: - A single localized biliary stricture was found in the lower third of the main bile duct. The stricture was benign appearing. - The left main hepatic duct, right main hepatic duct, entire biliary tree and common hepatic duct were moderately dilated, with a stone causing an obstruction. - Choledocholithiasis was found. Complete removal was accomplished by biliary sphincterotomy and balloon extraction. - A biliary sphincterotomy was performed. - The biliary tree was swept and stent(s) were found. - One stent was removed from the biliary tree, the common hepatic duct and the left hepatic duct. Procedure Code(s): --- Professional --- 68099, Endoscopic retrograde cholangiopancreatography (ERCP); with removal of foreign body(s) or stent(s) from biliary/pancreatic duct(s) 00376, Endoscopic retrograde cholangiopancreatography (ERCP); with removal of calculi/debris from biliary/pancreatic duct(s) 12514, Endoscopic retrograde cholangiopancreatography (ERCP); with sphincterotomy/papillotomy 26467, 26, Endoscopic catheterization of the biliary ductal system, radiological supervision and interpretation CPT copyright 2021 [employer]. All rights reserved. The codes documented in this report are preliminary and upon manager facility review may be revised to meet current compliance requirements. Agus Oden DO 02/10/2024 4:24:23 PM This report has been signed electronically. Number of Addenda: 0 Note Initiated On: 02/10/2024 3:17 PM
--- NOTE | 2024-02-10 16:33 | PCM.POST.ANE ---
Anesthesia: Postop Eval I Current Vital Signs Temperature: 97 F Pulse Rate: 71 Blood Pressure: 126/67 Respiratory Rate: 16 Pulse Ox: 99 Oxygen Delivery Method: Room Air Assessment Airway patent: Yes Spontaneous unlabored respirations: Yes Mental status: Awake nausea: No Vomiting: No Anesthesia Complication: No Fluid Hydration Crystalloid volume administer (ml): 500 Total IV fluid infused: 500 Progress Note Anesthesia document: Postop Eval 1 completed: Yes
--- NOTE | 2024-02-10 17:26 | PCM.POSTANE2 ---
Anesthesia Postop Eval I Sum Postop Eval Completion status Anesthesia document: Postop Eval 1 completed: Yes Anesthesia Postop Eval I Summary Anesthesia Postop Eval I Summary: Anesthesia Postop Eval I: Assessment Summary Airway patent Yes 02/10/24 16:33 [email or web address] Spontaneous unlabored Yes 02/10/24 16:33 [email or web address] respirations Mental status Awake 02/10/24 16:33 [email or web address] nausea No 02/10/24 16:33 [email or web address] Vomiting No 02/10/24 16:33 [email or web address] Anesthesia Postop Eval I: Fluid Summary Crystalloid volume administer 500 02/10/24 16:33 [email or web address] (ml) Colloids volume administered ( ml) Blood Product volume administered (ml) Total IV fluid infused 500 02/10/24 16:33 [email or web address] Anesthesia Postop Eval I: Summary Notes Anesthesia Complication No 02/10/24 16:33 [email or web address] Anesthesia Complication Comment: Post-operative progress note Anesthesia: Postop Eval II Evaluation Mental status: Awake Pain Level: 0 nausea: No Vomiting: No
== END 2024-02-10 17:59 | disposition home or self-care (01) ==
LOC: EN 13:40 → AC 13:42
PROVIDERS: PCP Family Medicine; Referring Provider Family Medicine; Visit Provider Internal Medicine Gastroenterology
PROC: (CPT 43260; principal; 2024-02-10 14:25)
DX: C23 Malignant neoplasm of gallbladder (principal); K80.51 Calculus of bile duct without cholangitis or cholecystitis with obstruction; K83.8 Other specified diseases of biliary tract; Z79.899 Other long term (current) drug therapy; Z86.73 Personal history of transient ischemic attack (TIA), and cerebral infarction without residual deficits
CPT/HCPCS: 43275; 43264; 43262; 74330; 76000; 88108; 88305; 88313; 93005; J7120; A4216; J2405

== ENCOUNTER → 2024-06-02 | Outpatient (CLI) | payer MEDICARE, OTHER, SELFPAY ==
--- NOTE | 2024-06-02 08:54 | BD_ITS ---
PROCEDURE: DEXA BONE DENSITY STUDY REASON FOR EXAM: F, age 79 y/o . Postmenopausal. TECHNIQUE: DEXA scan of the lumbar spine and both hips. COMPARISON: None. FINDINGS: Lumbar Spine (L1-L4): g/cm2 (1.146)/T-score (0.8)/Z-score (3.5) findings are suggestive of normal with a low fracture risk. Left Femur Total: g/cm2 (0.879)/T-score (-0.5)/Z-score (1.5) Left Femoral Neck: g/cm2 (0.742)/T-score (-1.0)/Z-score (1.3) Right Femur Total: g/cm2 (0.933)/T-score (-0.1)/Z-score (1.9) Right Femoral Neck: g/cm2 (0.753)/T-score (-0.9)/Z-score (1.4) BD/Dexa Bone Density Study IMPRESSION: The patient is considered normal as outlined below according to [employer] anization (WHO) criteria with a low fracture risk. Reading Location: [facility]
== END | disposition home or self-care (01) ==
LOC: OPBD 08:48
PROVIDERS: PCP Family Medicine; Referring Provider Family Medicine; Visit Provider Family Medicine
DX: Z78.0 Asymptomatic menopausal state (principal)
CPT/HCPCS: 77080

== ENCOUNTER → 2024-11-01 | Outpatient (CLI) | payer MEDICARE, OTHER, SELFPAY | END | disposition home or self-care (01) | LOC: MFPLAB 08:03 | PROVIDERS: PCP Family Medicine; Visit Provider Family Medicine | DX: Z00.00 Encounter for general adult medical examination without abnormal findings (principal) ==

== ENCOUNTER 2024-11-10 17:06 | Inpatient (IN) | payer MEDICARE, OTHER, SELFPAY ==
[2024-11-10] VITALS (9 sets, daily range): BP systolic 101–139; BP diastolic 50–78; PULSE 76–133; RESP 16–24; TEMP 36.6–37.1; O2SAT 94–100; BMI 22.9
--- NOTE | 2024-11-10 17:30 | CT_ITS ---
PROCEDURE: ABDOMEN/PELVIS W IV CONT ONLY 11/10/2024 REASON FOR EXAM: ABDOMINAL PAIN POST ERCP YESTERDAY TECHNIQUE: ABDOMEN/PELVIS W IV CONT ONLY Coronal and Sagittal reconstruction series were provided. CONTRAST: 100 cc of Isovue 370 intravenous contrast. One or more dose reduction techniques were used (e.g., Automated exposure control, adjustment of the mA and/or kV according to patient size, use of iterative reconstruction technique. RADIATION DOSE SUMMARY: CTDlvol: 20 mGy DLP: 751 mGycm COMPARISON: ERCP 02/10/2024, CT abdomen and pelvis 11/11/2023 FINDINGS: Lung bases: Unremarkable. Liver: Normal size. No mass. Moderate dilatation of multiple intrahepatic bile ducts, increased from prior. Interval biliary stent placement and pneumobilia, likely postprocedural. Gallbladder: Surgically absent. Spleen: Normal size. Pancreas: Normal size without evidence of mass surrounding inflammation or ductal dilation. Adrenals: Unremarkable. Kidneys: Normal renal sizes. No hydronephrosis. Bladder: Unremarkable. Reproductive Organs: Unremarkable uterus. Large cystic lesion abutting and superior to the uterine fundus measuring 9.6 x 10.9 x 9.2 cm. Bowel: Colonic diverticulosis without diverticulitis. No bowel obstruction. Appendix: The appendix is not identified. There is no inflammatory process identified in the right lower quadrant to suggest appendicitis. Lymph nodes: Unremarkable. Vasculature: Atherosclerotic calcifications of the abdominal aorta and its branches. No aneurysm. Peritoneum / Retroperitoneum: No free fluid or air. Bones: Degenerative changes of the spine. No acute fractures. CT/Abdomen/Pelvis W IV Cont ONLY IMPRESSION: 1. Recent ERCP with interval placement of biliary stent and associated pneumobi neelima. Increased moderate dilatation of multiple intrahepatic bile ducts. 2. Large cystic lesion abutting and superior to the uterine fundus measuring 9. 6 x 10.9 x 9.2 cm. Etiology is unclear but may originate from the left ovary/adnexa. Reading Location: [facility]
--- NOTE | 2024-11-10 17:34 | ED.VIS.GI ---
HPI HPI - GI History of Present Illness Chief Complaint: Abd Pain Narrative Narrative: Patient is a 79-year-old female presenting emergency department for abdominal pain and nausea. 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 She is not on any current chemo or radiation. She did have a cholecystectomy in the past. Patient had an ERCP done yesterday at [facility] for jaundice and elevated liver enzymes. Patient states that afterwards she was having some nausea which she received medication for and that was discharged home around 2 PM. States she was having some generalized abdominal pain yesterday but then today around noon she developed worsening abdominal pain. States its mainly located on the left side. Endorses nausea with no vomiting. Denies chest pain or shortness of breath. Denies known fever or chills. States she has a headache across the front of her forehead, started around the same time as the abdominal pain. Describes it as a pressure. Did not start suddenly. No weakness or numbness in her extremities, no visual changes. Similar to headaches in the past. PFSH PFS Medical History Wears hearing aid Loss of hearing Wears glasses Wears partial dentures Wears dentures Cancer High cholesterol History of TIA (transient ischemic attack) Squamous cell carcinoma in situ Atherosclerosis of both carotid arteries Pure hypercholesterolemia Benign essential HTN Home Medications ?Medication ?Instructions ?Recorded ?Last Taken ?Type lisinopril 20 mg tablet 10 mg PO DAILY BLOOD PRESSURE 11/14/17 11/10/24 History Allergy/AdvReac Type Severity Reaction Status Date / Time No Known Allergies Allergy Verified 11/10/24 17:08 Family History Mother CVA (cerebral vascular accident) Hypertension Father CAD (coronary artery disease) Hypertension Heart disease Myocardial infarction Surgical History History of cholecystectomy S/P appendectomy History of squamous cell carcinoma excision Social History household members: spouse Smoking Status: Never smoker alcohol intake: never substance use type: does not use additional social history: DOES USE ASPIRIN DOES NOT USE IBUPROFEN ROS ROS ED ROS Narrative see HPI EXAM Physical Exam Narrative Exam Narrative: Vital signs: Reviewed General: Alert and oriented. No acute distress. Chronically ill appearing. HEENT: Head is normocephalic and atraumatic, sinuses nontender, pupils equal round and reactive. Scleral icterus. nares are patent. Oropharynx and throat exams normal. Neck: Supple without lymphadenopathy nontender Cardiovascular: Tachycardic and regular rhythm, no murmurs. No rubs or gallops. Normal S1 and S2 Respiratory: Clear to auscultation bilaterally. No wheezes, rales, rhonchi Abdominal: Soft and tender to palpation in the epigastric, left upper quadrant and suprapubic. Normal bowel sounds. No guarding or rebound. Extremities: No tenderness. No bruising. Normal range of motion. Normal sensation. Skin: No rash or redness. Jaundiced. Neurological: Cranial nerves II through XII are grossly intact. Normal strength and sensation. Normal cerebellar function The rest of the physical exam is unremarkable Const Vital Signs: 11/10/24 17:08 11/10/24 17:12 11/10/24 19:00 Temperature 98.7 F 98.7 F 98.3 F Temperature Source Oral Oral Oral Pulse Rate 127 H 133 H 89 Respiratory Rate 23 H 23 H 22 H Blood Pressure 139/78 H 139/78 H 111/50 L Blood Pressure Mean 98 98 70 Pulse Ox 96 94 99 Oxygen Delivery Method Room Air Room Air Room Air Oxygen Flow Rate (L/min) 11/10/24 19:02 11/10/24 20:00 11/10/24 21:00 Temperature 98.2 F 97.8 F Temperature Source Oral Oral Pulse Rate 89 86 90 Respiratory Rate 24 H 23 H Blood Pressure 111/50 L 101/58 L 108/51 L Blood Pressure Mean 70 72 70 Pulse Ox 97 99 97 Oxygen Delivery Method Room Air Nasal Cannula Nasal Cannula Oxygen Flow Rate (L/min) 2 11/10/24 21:30 Temperature Temperature Source Pulse Rate 93 Respiratory Rate Blood Pressure 105/53 L Blood Pressure Mean 70 Pulse Ox 97 Oxygen Delivery Method Oxygen Flow Rate (L/min) MDM MDM MDM Narrative Medical decision making narrative: Patient is a 79-year-old female presenting to the emergency department for abdominal pain, nausea. Patient was seen and examined. She arrives tachycardic at 127 with stable BP of 139/78. She is afebrile. Fluid bolus started for tachycardia, patient given morphine and Zofran for symptomatic control. Differential includes but is not limited to: Occlusion of stent, perforation post procedure, pancreatitis, pneumonia? post procedural aspiration?, UTI CBC with no leukocytosis and a hemoglobin of 11.1. CMP with elevated total bilirubin of 8.79 and transaminitis. Elevated lactate of 3.3. Blood cultures x 2 obtained. Given the patient's initial vitals and elevated lactate, patient given Zosyn. Urinalysis with possible UTI with nitrates and leukoesterase as well as bacteria. CT abdomen shows recent ERCP with interval placement of a biliary stent and associated pneumobilia with increased dilatation of multiple intra hepatic bile ducts. Given the possible sepsis, CXR was added on to rule out postprocedural aspiration pneumonia, this was negative for any acute findings. EKG with sinus tachycardia and occasional PVCs. There is some nonspecific ST abnormalities likely due to demand due to the high heart rate. I did discuss the patient with on-call GI, Dr. Oden, who recommended transfer to [facility] where the ERCP was done just yesterday given concern for possible reocclusion of stent. I spoke to transfer center and then Dr. Pleitez who accepted the patient for transfer. I was notified that it will likely be a few days before transfer will happen. Recommended admission here to hospitalist in the mean time. Impression: 1. Abdominal pain 2. possible sepsis 3. Elevated lactate 4. Elevated total bilirubin 5. Transaminitis History & Record Review Discussion w/independent historian: Patient and Family Additional record(s) reviewed:: Prior inpatient record Lab Data Attestation: I reviewed the patient's lab results. Labs: Laboratory Results - last 24 hr 11/10/24 11/10/24 11/10/24 17:23 17:23 17:23 WBC 5.6 RBC 3.63 L Hgb 11.1 L Hct 33.8 L MCV 93.1 MCH 30.6 MCHC 32.8 RDW Std Deviation 59.0 H RDW Coeff of Adelfo 17.2 H Plt Count 232 MPV 12.3 H Immature Gran % (Auto) 0.400 Neut % (Auto) 95.5 H Lymph % (Auto) 2.3 L [place] % (Auto) 1.6 Eos % (Auto) 0.0 Baso % (Auto) 0.2 Absolute Neuts (auto) 5.3 Absolute Lymphs (auto) 0.13 L Nucleated RBC % 0 Differential Comment SCANNED Platelet Estimate ADEQUATE Sodium 137 Potassium 3.6 Chloride 102 Carbon Dioxide 20.5 L Anion Gap 15 BUN 16 Creatinine 0.82 Estim Creat Clear Calc 56.12 Est GFR (MDRD) Non-Af 73 BUN/Creatinine Ratio 19.3 Glucose 101 H Lactic Acid Calcium 9.2 Total Bilirubin 8.75 H 8.79 H Direct Bilirubin 6.51 H AST 76 H 76 H ALT 58 H Alkaline Phosphatase Troponin T High Sens Total Protein Albumin Globulin Albumin/Globulin Ratio Lipase Urine Color Urine Clarity Urine pH Ur Specific [place] Urine Protein Urine Glucose (UA) Urine Ketones Urine Occult Blood Urine Nitrite Urine Bilirubin Urine Urobilinogen Ur Leukocyte Esterase Urine RBC Urine WBC Ur Squamous Epith Cells Urine Bacteria Urine Mucus 11/10/24 11/10/24 11/10/24 17:23 17:23 17:23 WBC RBC Hgb Hct MCV MCH MCHC RDW Std Deviation RDW Coeff of Adelfo Plt Count MPV Immature Gran % (Auto) Neut % (Auto) Lymph % (Auto) [place] % (Auto) Eos % (Auto) Baso % (Auto) Absolute Neuts (auto) Absolute Lymphs (auto) Nucleated RBC % Differential Comment Platelet Estimate Sodium Potassium Chloride Carbon Dioxide Anion Gap BUN Creatinine Estim Creat Clear Calc Est GFR (MDRD) Non-Af BUN/Creatinine Ratio Glucose Lactic Acid Calcium Total Bilirubin Direct Bilirubin AST ALT 58 H Alkaline Phosphatase 344 H 343 H Troponin T High Sens Total Protein 6.2 6.2 Albumin 3.3 L Globulin Albumin/Globulin Ratio Lipase Urine Color Urine Clarity Urine pH Ur Specific [place] Urine Protein Urine Glucose (UA) Urine Ketones Urine Occult Blood Urine Nitrite Urine Bilirubin Urine Urobilinogen Ur Leukocyte Esterase Urine RBC Urine WBC Ur Squamous Epith Cells Urine Bacteria Urine Mucus 11/10/24 11/10/24 11/10/24 17:23 17:23 17:40 WBC RBC Hgb Hct MCV MCH MCHC RDW Std Deviation RDW Coeff of Adelfo Plt Count MPV Immature Gran % (Auto) Neut % (Auto) Lymph % (Auto) [place] % (Auto) Eos % (Auto) Baso % (Auto) Absolute Neuts (auto) Absolute Lymphs (auto) Nucleated RBC % Differential Comment Platelet Estimate Sodium Potassium Chloride Carbon Dioxide Anion Gap BUN Creatinine Estim Creat Clear Calc Est GFR (MDRD) Non-Af BUN/Creatinine Ratio Glucose Lactic Acid 3.3 H* Calcium Total Bilirubin Direct Bilirubin AST ALT Alkaline Phosphatase Troponin T High Sens Total Protein Albumin 3.3 L Globulin 2.9 3.0 Albumin/Globulin Ratio 1.1 Lipase 16 Urine Color Urine Clarity Urine pH Ur Specific [place] Urine Protein Urine Glucose (UA) Urine Ketones Urine Occult Blood Urine Nitrite Urine Bilirubin Urine Urobilinogen Ur Leukocyte Esterase Urine RBC Urine WBC Ur Squamous Epith Cells Urine Bacteria Urine Mucus 11/10/24 11/10/24 19:00 19:15 WBC RBC Hgb Hct MCV MCH MCHC RDW Std Deviation RDW Coeff of Adelfo Plt Count MPV Immature Gran % (Auto) Neut % (Auto) Lymph % (Auto) [place] % (Auto) Eos % (Auto) Baso % (Auto) Absolute Neuts (auto) Absolute Lymphs (auto) Nucleated RBC % Differential Comment Platelet Estimate Sodium Potassium Chloride Carbon Dioxide Anion Gap BUN Creatinine Estim Creat Clear Calc Est GFR (MDRD) Non-Af BUN/Creatinine Ratio Glucose Lactic Acid Calcium Total Bilirubin Direct Bilirubin AST ALT Alkaline Phosphatase Troponin T High Sens 26 H Total Protein Albumin Globulin Albumin/Globulin Ratio Lipase Urine Color Yellow Urine Clarity Cloudy Urine pH 5.0 Ur Specific [place] 1.010 Urine Protein 30 H Urine Glucose (UA) Normal Urine Ketones Negative Urine Occult Blood 10 H Urine Nitrite Positive H Urine Bilirubin 6 H Urine Urobilinogen 4 H Ur Leukocyte Esterase 25 H Urine RBC 0-5 SEEN Urine WBC 0-5 SEEN Ur Squamous Epith Cells 5-10 SEEN Urine Bacteria 2+ Urine Mucus 1+ Radiography Chest X-Ray - ED: 2 View, Read by ED Physician, Normal, No Acute Disease and No Infiltrates Diagnostic Testing: Clinical Impression(s) from Imaging Studies Abdomen/Pelvis CT 11/10/24 17:30 IMPRESSION: 1. Recent ERCP with interval placement of biliary stent and associated pneumobilia. Increased moderate dilatation of multiple intrahepatic bile ducts. 2. Large cystic lesion abutting and superior to the uterine fundus measuring 9.6 x 10.9 x 9.2 cm. Etiology is unclear but may originate from the left ovary/adnexa. Reading Location: [facility] Chest X-Ray 11/10/24 19:16 IMPRESSION: NO ACUTE FINDINGS. Reading Location: [facility] Discharge Plan Triage Chief Complaint: Abd Pain ED Provider: Janet Sullivan Dx/Rx/DC Orders Prescriptions: No Action lisinopril 20 mg tablet 10 mg PO DAILY Primary Care Provider: Joe Tim Referrals: Joe Tim MD [Primary Care Provider] - Print Language: Croatian
[2024-11-10] MEDS: 0.9% Normal Saline (1000mL) 1,000 ML 1000 ML IV (17:39)
[2024-11-10 18:03] LABS: Lipase 16 U/L (13-75)
[2024-11-10 18:04] LABS: AST(SGOT) 76 U/L (<=31); Alanine Aminotransfer ALT/SGPT 58 U/L (<=34); Albumin, Serum 3.3 g/dL (3.4-4.8); Alkaline Phosphatase 344 U/L (35-104); Anion Gap 15 (5-15); BUN 16 mg/dL (4-19); BUN/Creat Ratio 19.3 RATIO (10-20); Calcium,Total 9.2 mg/dL (7.6-11.0); Carbon Dioxide 20.5 mmol/L (21.0-32.0); Chloride 102 mmol/L (98-108); Estimated Creatinine Clearance 56.12 ml/min (50-250); Globulin 2.9 g/dL (2.2-4.2); Glucose 101 mg/dL (70-99); Potassium 3.6 mmol/L (3.3-5.1)
[2024-11-10 18:11] LABS: Hematocrit 33.8 % (37-47); Hemoglobin 11.1 g/dL (12.0-15.0); Immature Granulocytes Count 0.020 X10^3/uL (0.0-0.0); Mean Corp Hgb Conc 32.8 g/dL (32-36); Mean Corpuscular Volume 93.1 fL (81-99); Mean Platelet Vol. 12.3 fl (6.2-12.0); NRBC Flagged by Analyzer 0 % (0-5); POSITIVE DIFFERENTIAL YES; POSITIVE MORPHOLOGY YES; Platelet Count 232 K/mm3 (150-450); RBC Distribution Width CV 17.2 % (11.6-14.6); RBC Distribution Width SD 59.0 fl (35.1-43.9); Red Blood Count 3.63 M/mm3 (4.2-5.4); White Blood Count 5.6 K/mm3 (4.4-11.0)
[2024-11-10 18:31] LABS: Differential Indicated SCAN CRITERIA MET
[2024-11-10 18:34] LABS: AST(SGOT) 76 U/L (<=31); Alanine Aminotransfer ALT/SGPT 58 U/L (<=34); Albumin, Serum 3.3 g/dL (3.4-4.8); Alkaline Phosphatase 343 U/L (35-104); Bilirubin, Direct 6.51 mg/dL (0.00-0.30); Globulin 3.0 g/dL (2.2-4.2)
--- NOTE | 2024-11-10 19:16 | RAD_ITS ---
PROCEDURE: CHEST PA AND LATERAL 11/10/2024 REASON FOR EXAM: CHEST PAIN TECHNIQUE: CHEST PA AND LATERAL COMPARISON: None available. FINDINGS: Hardware: None. Heart: The heart size is normal. Mediastinum: The mediastinal contour is unremarkable. Lungs: The lungs are clear. Bones: The bones are unremarkable. RAD/Chest PA and Lateral IMPRESSION: NO ACUTE FINDINGS. Reading Location: [facility]
[2024-11-10 19:20] LABS: Color, Urine Yellow (Yellow); Glucose, Dipstick Normal (Normal); Ketone-Dipstick Negative (Negative); Leukocyte Esterase-Dipstick 25 /ul (Negative); Nitrite-Dipstick Positive (Negative); Occult Blood-Urine 10 /ul (Negative); Protein-Dipstick 30 mg/dl (Negative); Specific Gravity, Urine 1.010 (1.002-1.030); Urine Bilirubin Dipstick 6 mg/dL (Negative)
[2024-11-10 19:36] LABS: Squamous Epithelial Cells - UA 5-10 SEEN /hpf (5-10)
[2024-11-10 19:37] LABS: Mucous, Urine 1+ /hpf (<or=2+)
[2024-11-10 19:39] LABS: Red Blood Cells-Urine 0-5 SEEN /hpf (0-5)
[2024-11-10] MEDS: Piperacil/Tazobactam 3.375 GM in 0.9% Normal Saline (50mL MB+) 50 ML IV (20:11)
[2024-11-10 20:20] LABS: Troponin T High Sensitivity 26 ng/L (<=14)
[2024-11-10 20:22] LABS: Differential Comment SCANNED
--- NOTE | 2024-11-10 21:46 | PCA ---
BEATRICE WITH [facility] TRANSFER LINE STATED PT WILL NOT GET A BED ASSIGNMENT TONIGHT (11/10), POSSIBLY TOMORROW, BUT MOST LIKELY NOT A FOR A FEW DAYS.
[2024-11-10 21:49] LABS: Reflex Lactate? Y
[2024-11-10 22:34] LABS: Troponin T High Sens 2 HR 26 ng/L (<=14)
[2024-11-10] MEDS: fentaNYL 100 MCG/2 ML Ampul 25 MCG IV (22:39)
--- NOTE | 2024-11-10 23:44 | ED.RN ---
ok to take the pt off sepsis vitals. per dr. mai
[2024-11-11] VITALS (9 sets, daily range): BP systolic 116–145; BP diastolic 56–77; PULSE 75–96; RESP 14–19; TEMP 36.6–36.8; O2SAT 94–99; BMI 22.7
[2024-11-11 00:03] LABS: Troponin T High Sens 4 HR 25 ng/L (<=14)
--- NOTE | 2024-11-11 02:13 | HP.PCM.HOS_ITS ---
[facility] - General General Date of Admission: 11/11/24 Date of Service: 11/11/24 Chief Complaint: Abdominal Pain and Nausea. 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 Ms. Blair reports her symptoms began shortly after she was discharged home ~2 PM with generalized abdominal pain that was mainly Left-sided and gradually worsened throughout the day. She admits to associated nausea and frontal headache that coincided with the increase in her abdominal pain. There was no report of fever, chills, vomiting, diarrhea, constipation, chest pain, shortness of breath, dysuria, hematuria, paresthesias, focal neurologic deficits or rash. In the ER she underwent CT scan of the abdomen/pelvis that revealed evidence of recent ERCP with interval placement of biliary stent and associated pneumobilia with increased moderate dilatation of multiple intrahepatic bile ducts and large cystic lesion superior to the uterine fundus measuring ~9.6 cm x ~10.9 cm by ~9.2 cm with etiology unclear but may originate from the Left ovary/adnexa with corresponding laboratory evidence of severe hyperbilirubinemia; with total bilirubin of 8.79 mg/dL and direct bilirubin of 6.51 mg/dL along with Transaminitis; with AST 76 units/L, ALT of 58 units/L and alkaline phosphatase of 343 units/L in addition to a CXR that revealed no acute findings and a UA that was positive for Acute Cystitis; without hematuria and she was then admitted to the PCU for ongoing care for stay that is expected to extend beyond 2 midnights. [facility] Medical History Wears hearing aid Loss of hearing Wears glasses Wears partial dentures Wears dentures Cancer High cholesterol History of TIA (transient ischemic attack) Squamous cell carcinoma in situ Atherosclerosis of both carotid arteries Pure hypercholesterolemia Benign essential HTN Home Medications ?Medication ?Instructions ?Recorded ?Last Taken ?Type lisinopril 20 mg tablet 10 mg PO DAILY BLOOD PRESSUR E 11/14/17 11/10/24 History Allergy/AdvReac Type Severity Reaction Status Date / Time No Known Allergies Allergy Verified 11/10/24 17:08 Family History Mother CVA (cerebral vascular accident) Hypertension Father CAD (coronary artery disease) Hypertension Heart disease Myocardial infarction Surgical History History of cholecystectomy S/P appendectomy History of squamous cell carcinoma excision Social History household members: spouse Smoking Status: Never smoker alcohol intake: never substance use type: does not use additional social history: DOES USE ASPIRIN DOES NOT USE IBUPROFEN ROS ROS Narrative Review of Systems: Constitutional: Patient denies fever or chills. Eyes: Patient denies changes in vision or discharge from eyes. ENT: Patient denies runny nose, sore throat or ear pain. Resp: Patient denies shortness of breath or cough. CV: Patient denies chest pain, palpitations, heart racing or lower extremity edema. GI: Patient admits to generalized abdominal pain that is mainly Left-sided with nausea as per HPI. : Patient denies dysuria or hematuria. MSK: Patient denies arthralgias or myalgias. Skin: Patient has evidence of jaundice but no rash. Psych: Patient denies symptoms of uncontrolled depression or anxiety. Neuro: Patient admits to headache but she denies paresthesias or focal neurologic deficits as per HPI. Allergy: Patient denies lip swelling, tongue swelling or urticaria. Hematology: Patient denies easy bleeding or easy bruisability. Endocrinology: Patient denies polyuria, polydipsia, polyphagia or heat/cold intolerance. 14 point ROS otherwise negative except for positives noted above in HPI. Vital Signs Vital Signs Vital Signs: 11/10/24 17:08 11/10/24 17:12 11/10/24 19:00 Temperature 98.7 F 98.7 F 98.3 F Temperature Source Oral Oral Oral Pulse Rate 127 H 133 H 89 Respiratory Rate 23 H 23 H 22 H Blood Pressure 139/78 H 139/78 H 111/50 L Blood Pressure Mean 98 98 70 Pulse Ox 96 94 99 Oxygen Delivery Method Room Air Room Air Room Air Oxygen Flow Rate (L/min) 11/10/24 19:02 11/10/24 20:00 11/10/24 21:00 Temperature 98.2 F 97.8 F Temperature Source Oral Oral Pulse Rate 89 86 90 Respiratory Rate 24 H 23 H Blood Pressure 111/50 L 101/58 L 108/51 L Blood Pressure Mean 70 72 70 Pulse Ox 97 99 97 Oxygen Delivery Method Room Air Nasal Cannula Nasal Cannula Oxygen Flow Rate (L/min) 2 11/10/24 21:30 11/10/24 22:00 11/10/24 23:00 Temperature 97.9 F 97.9 F Temperature Source Oral Oral Pulse Rate 93 78 76 Respiratory Rate 16 16 Blood Pressure 105/53 L 110/51 L 115/53 L Blood Pressure Mean 70 70 73 Pulse Ox 97 100 99 Oxygen Delivery Method Nasal Cannula Oxygen Flow Rate (L/min) 2 2 11/10/24 23:00 11/11/24 01:00 Temperature 97.9 F Temperature Source Oral Pulse Rate 76 77 Respiratory Rate 16 19 H Blood Pressure 115/53 L 116/57 L Blood Pressure Mean 73 76 Pulse Ox 99 99 Oxygen Delivery Method Nasal Cannula Nasal Cannula Oxygen Flow Rate (L/min) 2 2 Weight Weight: 151 lb 0.266 oz Body Mass Index (BMI) 22.9 Physical Exam Const alert, oriented x3, no apparent distress and average body habitus Constitutional Narrative: Chronically ill in appearance with temi jaundice. General Appearance: cooperative HEENT normocephalic, head/scalp atraumatic and hearing grossly normal bilaterally HEENT Narrative: Mucous membranes dry. Eyes PERRL and EOMs intact bilaterally Eyes Narrative: Scleral icterus noted. Neck no lymphadenopathy and supple Resp normal respiratory effort, no retractions, no use of accessory muscles and clear to auscultation bilaterally Cardio regular rate and regular rhythm GI GI Narrative: Patient tender to palpation in the LUQ, suprapubic region in addition to epigastrium with normal bowel sounds and no guarding or rebound. Extremity full ROM and no clubbing, cyanosis or edema Extremity Narrative: Patient has obvious jaundice. Skin Skin Narrative: Patient has obvious jaundice but no evidence of rash. Neuro oriented x3, CN's II-XII intact bilaterally, moves all extremities and no focal motor deficits Sensorium / Orientation: awake, alert, oriented to person, oriented to place and oriented to time Speech: speech normal Psych affect normal Results Medical Records Data Attestation: I reviewed the patient's medical records Lab / Micro Data Attestation: I reviewed the patient's lab results. 11/10/24 17:23 11/10/24 17:23 Labs: Laboratory Results - last 24 hr 11/10/24 17:23: WBC 5.6, RBC 3.63 L, Hgb 11.1 L, Hct 33.8 L, MCV 93.1, MCH 30.6, MCHC 32.8, RDW Std Deviation 59.0 H, RDW Coeff of Adelfo 17.2 H, Plt Count 232, MPV 12.3 H, Immature Gran % (Auto) 0.400, Neut % (Auto) 95.5 H, Lymph % (Auto) 2.3 L , [place] % (Auto) 1.6, Eos % (Auto) 0.0, Baso % (Auto) 0.2, Absolute Neuts (auto) 5.3, Absolute Lymphs (auto) 0.13 L, Nucleated RBC % 0, Differential Comment SCANNED, Platelet Estimate ADEQUATE, Sodium 137, Potassium 3.6, Chloride 102, C arbon Dioxide 20.5 L, Anion Gap 15, BUN 16, Creatinine 0.82, Estim Creat Clear Calc 56.12, Est GFR (MDRD) Non-Af 73, BUN/Creatinine Ratio 19.3, Glucose 101 H, Calcium 9.2, Total Bilirubin 8.75 H 11/10/24 17:23: Total Bilirubin 8.79 H, Direct Bilirubin 6.51 H, AST 76 H 11/10/24 17:23: AST 76 H, ALT 58 H 11/10/24 17:23: ALT 58 H, Alkaline Phosphatase 344 H 11/10/24 17:23: Alkaline Phosphatase 343 H, Total Protein 6.2 11/10/24 17:23: Total Protein 6.2, Albumin 3.3 L 11/10/24 17:23: Albumin 3.3 L, Globulin 2.9 11/10/24 17:23: Globulin 3.0, Albumin/Globulin Ratio 1.1, Lipase 16 11/10/24 17:40: Lactic Acid 3.3 H* 11/10/24 19:00: Urine Color Yellow, Urine Clarity Cloudy, Urine pH 5.0, Ur Specific [place] 1.010, Urine Protein 30 H, Urine Glucose (UA) Normal, Urine Ketones Negative, Urine Occult Blood 10 H, Urine Nitrite Positive H, Urine Bilirubin 6 H, Urine Urobilinogen 4 H, Ur Leukocyte Esterase 25 H, Urine RBC 0-5 SEEN, Urine WBC 0-5 SEEN, Ur Squamous Epith Cells 5-10 SEEN, Urine Bacteria 2+, Urine Mucus 1+ 11/10/24 19:15: Troponin T High Sens 26 H 11/10/24 21:53: Lactic Acid 1.4, Troponin T Hi Sens 2 Hr 26 H 11/10/24 23:39: Troponin T Hi Sens 4Hr 25 H Imaging Radiology Impression Abdomen/Pelvis CT 11/10/24 17:30 IMPRESSION: 1. Recent ERCP with interval placement of biliary stent and associated pneumobilia. Increased moderate dilatation of multiple intrahepatic bile ducts. 2. Large cystic lesion abutting and superior to the uterine fundus measuring 9.6 x 10.9 x 9.2 cm. Etiology is unclear but may originate from the left ovary/adnexa. Reading Location: [facility] Chest X-Ray 11/10/24 19:16 IMPRESSION: NO ACUTE FINDINGS. Reading Location: [facility] Assessment & Plan Assessment/Plan (1) H/O endoscopic retrograde cholangiopancreatography: (2) Hyperbilirubinemia: (3) Transaminitis: (4) Jaundice: (5) Acute cystitis without hematuria: (6) Frontal headache: (7) Nausea: PLAN: Plan 1. CT scan of the abdomen/pelvis that revealed evidence of recent ERCP with interval placement of biliary stent and associated pneumobilia with increased moderate dilatation of multiple intrahepatic bile ducts and large cystic lesion superior to the uterine fundus measuring ~9.6 cm x ~10.9 cm by ~9.2 cm with etiology unclear but may originate from the Left ovary/adnexa - Admit to PCU. Keep NPO for now. Give pantoprazole 40 mg IV daily. Give ondansetron IV as needed for nausea or vomiting. Give ketorolac IV as needed for [id number] (level 1-5/10) pain or fever. Give morphine IV as needed for severe (level 6- 10/10) pain. Finally, we will consult gastroenterology to see this patient on rounds in the a.m. for further recommendations with help appreciated in advance. 2. Hyperbilirubinemia; with total bilirubin of 8.79 mg/dL and direct bilirubin of 6.51 mg/dL along with Transaminitis; with AST 76 units/L, ALT of 58 units/L and alkaline phosphatase of 343 units/L with clinical evidence of temi Jaundice after recent ERCP complicating #1 - Check CMP daily to follow trend. 3. UA that was positive for Acute Cystitis; without hematuria compounding #1 & #2 - Continue IV piperacillin-tazobactam begun in ER and await culture and sensitivity data. 4. Frontal Headache and Nausea attributable to #1 - #3 - We will follow pain and antiemetic regimen outlined in #1. 5. History of gallbladder cancer; s/p cholecystectomy - Noted. 6. History of squamous cell carcinoma in situ of the Left forehead; s/p excision - Noted. 7. Essential hypertension; on lisinopril - Hold scheduled oral antihypertensives. Give hydralazine IV prn for systolic blood pressure > 160 mmHg. 8. Hyperlipidemia; currently not on treatment - Check Lipid Profile. 9. History of TIA - Noted with no evidence of recurrence at this time. 10. History of bilateral carotid atherosclerosis - Noted. 11. History of appendectomy - Noted. 12. OA - Stable. 13. DVT/GI prophylaxis - Heparin 5,000U sq BID plus SCD's. Pantoprazole 40 mg IV daily. Total time: Approximately (but not less than) 75 minutes. Charges/Coding Visit Charges Inpatient E&M: 84466 Init Hosp L3
[2024-11-11 03:32] LABS: Magnesium 1.7 mg/dL (1.5-2.2)
--- OUTSIDE RECORDS SUMMARY | 2024-11-11 03:42 | XMS RPT_ITS | CCD ---
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 Darrell Carl Referring Unavai lable Holland, Dr. Darrell Carl Attending Unavai lable Holland, Dr. Darrell Carl Admitting Unavai lable Awa, Dr. Trever Bautista Primary Care Unavaila ble BAWWAB, AMEED Admitting Unavailable BAWWAB, AMEED Attending Unavailable MAY DUKE Referring Unavailable TREVER BILLINGS Primary Care Unavailable JONATHON VALVERDE Consulting Unavailable Joe Muller MD Primary Care Provider [phone] Mikala Jones MD Unavailable Tin Jose DO Unavailable Donicole TONG, Teresa Unavailable Unavailable Joe Muller MD Primary Care Provider Joe Muller MD Attending Provider [phone] Joe Muller MD Referring Provider [phone] RENZO, CHALON Primary Care Unavailable DENICE OROZCO Referring Unavailable RENZO, CHALON Primary Care Unavailable DENICE OROZCO Referring Unavailable RENZO, CHALON Primary Care Unavailable DENICE OROZCO Attending Unavailable JOE MULLER Primary Care Unavailable TIN JOSE Attending Unavailable DENICE OROZCO Referring Unavailable RENZO, CHALON Primary Care Unavailable DENICE OROZCO Attending Unavailable RENZO, CHALON Primary Care Unavailable MASCI, TIN A Referring Unavailable RENZO, CHALON Primary Care Unavailable MASCI, TIN A Referring Unavailable RENZO, CHALON Primary Care Unavailable RENZO, CHALON Primary Care Unavailable RENZO, CHALON Primary Care Unavailable RENZO, CHALON Primary Care Unavailable OROZCO, DENICE Referring Unavailable RENZO, CHALON Primary Care Unavailable OROZCO, DENICE Attending Unavailable RENZO, CHALON Primary Care Unavailable OROZCO, DENICE Attending Unavailable RENZO, CHALON Primary Care Unavailable MASCI, TIN A Referring Unavailable RENZO, CHALON Primary Care Unavailable RENZO, CHALON Primary Care Unavailable RENZO, CHALON Primary Care Unavailable RENZO, CHALON Primary Care Unavailable OROZCO, DENICE Attending Unavailable RENZO, CHALON Primary Care Unavailable MASCI, TIN A Referring Unavailable RENZO, CHALON Primary Care Unavailable OROZCO, DENICE Attending Unavailable RENZO, CHALON Primary Care Unavailable RENZO, CHALON Primary Care Unavailable RENZO, CHALON Primary Care Unavailable OROZCO, DENICE Attending Unavailable RENZO, CHALON Primary Care Unavailable OROZCO, DENICE Referring Unavailable RENZO, CHALON Primary Care Unavailable OROZCO, DENICE Referring Unavailable RENZO, CHALON Primary Care Unavailable MASCI, TIN A Attending Unavailable RENZO, CHALON Primary Care Unavailable RENZO, CHALON Primary Care Unavailable OROZCO, DENICE Attending Unavailable RENZO, CHALON Primary Care Unavailable RENZO, CHALON Primary Care Unavailable OROZCO, DENICE Attending Unavailable RENZO, CHALON Primary Care Unavailable PIETER, TATY Attending Unavailable OROZCO, DENICE Referring Unavailable RENZO, CHALON Primary Care Unavailable PIETER, TATY Referring Unavailable Renzo Joe LEWIS Primary Care Provider Joe Muller MD Attending Provider Renzo, Chalon Referring Unavailable Renzo, Chalon Primary Care Unavailable Robotalonso Vanessa Attending Unavailable Meredith, [place] Attending Unavailable Renzo, Chalon Primary Care Unavailable Friend, Agus Referring Unavailable Renzo, Chalon Primary Care Unavailable FriendAgus Consulting Unavailable FriendAgus Attending Unavailable Renzo, Chalon Referring Unavailable Jose Duke Referring Unavailable Renzo, Chalon Primary Care Unavailable Marah Sebastian Attending Unavailable Renzo, Chalon Primary Care Unavailable Friend, Agus Attending Unavailable Renzo, Chalon Referring Unavailable Renzo, Chalon Primary Care Unavailable FriendAgus Attending Unavailable Renzo, Chalon Referring Unavailable Renzo, Chalon Primary Care Unavailable Renzo, Chalon Attending Unavailable Beth Tucker Attending Unavailable Beth Tucker Referring Unavailable Renzo, Chalon Primary Care Unavailable Jose Duke Attending Unavailable Renzo, Chalon Primary Care Unavailable Renzo, Chalon Primary Care Unavailable Renzo, Chalon Attending Unavailable Renzo, Chalon Referring Unavailable ISSAK, STACY ABRAMS Attending Unavaila ble ISSAK, STACY ABRAMS Referring Unavaila ble RENZO, CHALON Primary Care Unavailable MIKALA JONES Attending Unavailable RENZO, CHALON Primary Care Unavailable ISSAK, ABDULFSHAMIRH GALO Referring Unavaila ble RENZO, CHALON Primary Care Unavailable DELFINA BLACK Admitting Unavailable ASHLEY UNGER (RES) Referring Unavailable RENZO, CHALON Primary Care Unavailable MIKALA JONES Attending Unavailable RUBIA BLAIR Consulting Unavailable RUBIA BLAIR Attending Unavailable AGA ASHER Referring Unavailable RENZO, CHALON Primary Care Unavailable TIN JOSE Referring Unavailable RENZO, CHALON Primary Care Unavailable MIKALA JONES Attending Unavailable RENZO, CHALON Primary Care Unavailable Medications Current Medications Medication Drug Class(es) Dates Sig (Normalized) Sig (Original) acetaminophen 325 mg oral tablet (20 sources) Start: 11-20-2023 take 2 tablets by mouth every six hours as needed acetaminophen (TYLENOL) 325 mg tablet Take 2 tablets by mouth every 6 hours as needed for pain. 20 tablet 1 11/20/2023 Active atorvastatin 20 mg oral tablet (20 sources) HMG-CoA Reductase Inhibitor Start: 07-09-2021 End: 06-04-2024 take 1 tablet by mouth once daily Atorvastatin 20 mg tablet Active 20 mg PO DAILY November 18, 2023 12:00am CHOLESTEROL Comment on above: Take 20 mg by mouth once daily. benoxinate hydrochloride 4 mg/ml / fluorescein sodium 2.5 mg/ml ophthalmic solution (2 sources) Diagnostic Dye Start: 08-31-2021 End: 09-01-2021 fluorescein-benoxin ate 0.25-0.4 % 1 Drop (FLURESS) Start: 08-07-2021 End: 08-07-2021 fluorescein-benoxinate 0.25- 0.4 % 1 Drop (FLURESS) enteric contrast (will be provided with radiology test) (9 sources) Start: 07-14-[address] (will be provided with radiology test) Indications: Cholangiocarcinoma (HCC) For CT ABD/PEL W IVCON Routine order Administer, As Directed One Time Only, via Oral, Rectal, both Oral and Rectal, Enteric Tube, Stoma or Indwelling Catheter, Enteric Contrast as designated per enteric contrast guidelines 1 each 07/14/2024 Active Start: 06-22-2024 End: 06-23-2024 enteric contrast (will be pr ovided with radiology test) Indications: Gallbladder cancer (HCC) For CT CHESTABD/PEL W IVCON Routine order Administer, As Directed One Time Only, via Oral, Rectal, both Oral and Rectal, Enteric Tube, Stoma or Indwelling Catheter, Enteric Contrast as designated per enteric contrast guidelines 1 Each 06/22/2024 06/23/2024 Active Start: 04-02-2024 End: 04-03-2024 enteric contrast (will be pr ovided with radiology test) Indications: Gallbladder cancer (HCC) For CT CHESTABD/PEL W IVCON Routine order Administer, As Directed One Time Only, via Oral, Rectal, both Oral and Rectal, Enteric Tube, Stoma or Indwelling Catheter, Enteric Contrast as designated per enteric contrast guidelines 1 Each 04/02/2024 04/03/2024 Active iv contrast (will be provided with radiology test) (17 sources) Start: 07-14-2024 iv contrast (w ill be provided with radiology test) Indications: Cholangiocarcinoma (HCC) CT Chest W -Inject, intravenously, once for 1 dose.No IV access, insert saline lock prior to the beginning of sedation, infusion, injection of imaging exam. Discontinue saline lock post exam. If Pt. has a central line or IVAD, may access for administration according to line specific nursing protocol. Once exam is complete flush line and de-access according to line specific nursing protocol in the CT contrast administration guidelines link. 1 each 07/14/2024 Active Start: 07-14-2024 iv contrast (w ill be provided with radiology test) Indications: Cholangiocarcinoma (HCC) CT ABD/PEL -Inject, intravenously, once for 1 dose.No IV access, insert saline lock prior to the beginning of sedation, infusion, injection of imaging exam. Discontinue saline lock post exam. If Pt. has a central line or IVAD, may access for administration according to line specific nursing protocol. Once exam is complete flush line and de-access according to line specific nursing protocol in the CT contrast administration guidelines link. 1 each 07/14/2024 Active Start: 06-22-2024 End: 06-23-2024 iv contrast (will be provide d with radiology test) Indications: Gallbladder cancer (HCC) CT Chest ABD/PEL-Inject, intravenously, once for 1 dose.No IV access, insert saline lock prior to the beginning of sedation, infusion, injection of imaging exam. Discontinue saline lock post exam. If Pt. has a central line or IVAD, may access for administration according to line specific nursing protocol. Once exam is complete flush line and de-access according to line specific nursing protocol in the CT contrast administration guidelines link. 1 Each 06/22/2024 06/23/2024 Active Start: 06-08-2024 End: 06-09-2024 iv contrast (will be provide d with radiology test) MRI Female Pelvis Inject, intravenously, once for 1 dose. No IV access, insert saline lock prior to the beginning of sedation, infusion, injection of imaging exam. Discontinue saline lock post exam. If Pt has a central line or IVAD, may access for administration according to line specific nursing protocol. Once exam is complete flush line and de-access according to line specific nursing protocol in the MR contrast administration guidelines link. 1 Each 06/08/2024 06/09/2024 Active Start: 04-02-2024 End: 04-03-2024 iv contrast (will be provide d with radiology test) Indications: Gallbladder cancer (HCC) CT Chest ABD/PEL-Inject, intravenously, once for 1 dose.No IV access, insert saline lock prior to the beginning of sedation, infusion, injection of imaging exam. Discontinue saline lock post exam. If Pt. has a central line or IVAD, may access for administration according to line specific nursing protocol. Once exam is complete flush line and de-access according to line specific nursing protocol in the CT contrast administration guidelines link. 1 Each 04/02/2024 04/03/2024 Active ketorolac tromethamine 5 mg/ml ophthalmic solution (5 sources) Nonsteroidal Anti-inflammatory Drug, Cyclooxygenase Inhibitor Start: 08-30-2021 End: 10-12-2021 take 1 drop(s) into the eye(s) four times daily keTORolac (ACULAR) 0.5 % ophthalmic solution Use 1 Drop in the right eye four times daily. 5 mL 2 09/07/2021 10/12/2021 Active Comment on above: Use 1 Drop in the le ft eye four times daily. Use 1 Drop in the ri ght eye four times daily. lisinopril 10 mg oral tablet (20 sources) Angiotensin Converting Enzyme Inhibitor Start: 07-23-2021 take 1 tablet by mouth once daily lisinopril (ZESTRIL, PRINIVIL) 10 mg tablet Take 10 mg by mouth once daily. 07/23/2021 Active Start: 11-14-2017 take 10 mg by mouth once daily Lisinopril 20 mg tablet Active 10 mg PO DAILY November 14, 2017 12:00am BLOOD PRESSURE Comment on above: Take 10 mg by mouth once daily. phenylephrine hydrochloride 25 mg/ml ophthalmic solution (2 sources) alpha-1 Adrenergic Agonist Start: 04-09-2022 End: 04-09-2022 PHENYLephrine 2.5 % 1 Drop (AK-DILATE, INGRIS-SYNEPHRINE) Start: 08-07-2021 End: 08-07-2021 PHENYLephrine 2.5 % 1 Drop ( AK-DILATE, INGRIS-SYNEPHRINE) prednisoLONE acetate 10 mg/ml ophthalmic suspension (5 sources) Corticosteroid Start: 08-30-2021 End: 10-12-2021 prednisoLONE acetate (PRED FORTE, ECONOPRED PLUS) 1 % ophthalmic suspension Use 1 Drop in the right eye four times daily. Please bring unopened medication to hospital on 09/07/2021 5 mL 2 09/07/2021 10/12/2021 Active Comment on above: Use 1 Drop in the le ft eye four times daily. Use 1 Drop in the ri ght eye four times daily. Please bring unopened medication to hospital on 09/07/2021 proparacaine hydrochloride 5 mg/ml ophthalmic solution (1 source) Local Anesthetic Start: 04-09-2022 End: 04-09-2022 proparacaine 0.5 % 1 Drop (ALCAINE) Surgical Lubricant Jelly gel (15 sources) Start: 06-08-2024 Surgical Lubri cant Jelly gel For MRI Female Pelvis, MRI department to provide. Administer intra-vaginal Surgilube immediately prior the MRI procedure (total amount to patient toleranace). 3 g 06/08/2024 Active tropicamide 10 mg/ml ophthalmic solution (2 sources) Anticholinergic Start: 04-09-2022 End: 04-09-2022 tropicamide 1 % 1 Drop (MYDRIACYL) Start: 08-07-2021 End: 08-07-2021 tropicamide 1 % 1 Drop (MYDR IACYL) Completed/Discontinued Medications Medication Drug Class(es) Dates Sig (Normalized) Sig (Original) acetaminophen 325 mg / oxyCODONE hydrochloride 5 mg oral tablet (2 sources) Opioid Agonist Start: 12-02-2017 End: 01-21-2018 Oxycodone-Acetamino phen 1 TABLET tablet Discontinued 1 - 2 {tbl} PO 4 TIMES DAILY NEEDED as needed for Pain 30 4 0 December 02, 2017 1:53pm January 21, 2018 11:47am Other acute postprocedural pain amoxicillin 875 mg / clavulanate 125 mg oral tablet (2 sources) Penicillin-class Antibacterial Start: 12-06-2023 End: 12-16-2023 take 1 tablet by mouth every twelve hours amoxicillin-clavula krunal potassium (AUGMENTIN) 875-125 mg per tablet Take 1 tablet by mouth every 12 hours for 10 days. 20 tablet 12/06/2023 12/16/2023 apixaban 5 mg oral tablet (2 sources) Factor Xa Inhibitor Start: 12-05-2023 End: 03-04-2024 take 1 tablet by mouth twice daily apixaban (ELIQUIS) 5 mg tab(s) Take 1 tablet by mouth two times a day. 60 tablet 2 12/05/2023 12/16/2023 Discontinued aspirin 81 mg chewable tablet (20 sources) Platelet Aggregation Inhibitor, Nonsteroidal Anti-inflammatory Drug Start: 11-14-2017 End: 12-02-2017 take 1 tablet by mouth once daily Aspirin 81 mg tablet,chewable Discontinued 81 mg PO daily November 14, 2017 12:00am December 02, 2017 1:53pm take 1 tablet by mouth once rico y aspirin, enteric coated (ASPIRIN, ENTERIC COATED) 81 mg EC tablet Take 81 mg by mouth once daily. Active calcium chloride 0.0014 meq/ml / potassium chloride 0.004 meq/ml / sodium chloride 0.103 meq/ml / sodium lactate 0.028 meq/ml injectable solution (1 source) Start: 11-09-2024 End: 11-10-2024 take 5-30 mL intravenously every hour 5-30 mL/hr, INTRAVENOUS, CONTINUOUS, Starting on Fri11/09/24 at 1100, Until Fri11/10/24 at 0421, Recovery or Phase I (only) capecitabine 500 mg oral tablet (20 sources) Nucleoside Metabolic Inhibitor Start: 05-12-2024 End: 07-14-2024 capecitabine (XELODA) 500 mg tablet Indications: Gallbladder cancer (HCC) Take 3 tablets (1,500 mg) by mouth two times a day with food for 14 days on, followed by 7 days off (21-day cycle) 84 tablet 5 06/23/2024 10:19 AM EDT 05/12/2024 07/14/2024 Discontinued Start: 02-06-2024 take 1 tablet by flori th twice daily 30 minutes after mealtime Capecitabine 500 mg tablet Active 1500 mg PO TWICE A DAY February 06, 2024 1:00am for 14 days per 21-day cycle; must administer with water 30 minutes after a meal Start: 12-16-2023 End: 05-10-2024 capecitabine (XELODA) 500 mg tablet Indications: Gallbladder cancer (HCC) Take 3 tablets (1,500 mg) by mouth two times a day with food for 14 days on, followed by 7 days off (21-day cycle) 84 tablet 5 04/27/2024 1:53 PM EST 12/16/2023 05/10/2024 Discontinued clindamycin 300 mg oral capsule (2 sources) Lincosamide Antibacterial Start: 12-02-2017 End: 01-21-2018 take 1 capsule by mouth three times daily Clindamycin Hcl 300 MG capsule Discontinued 300 mg PO THREE TIMES A DAY 21 0 December 02, 2017 12:00am January 21, 2018 11:47am clopidogrel 75 mg oral tablet (9 sources) P2Y12 Platelet Inhibitor Start: 11-14-2017 End: 11-18-2023 take 1 tablet by mouth once daily Clopidogrel 75 mg tablet Discontinued 75 mg PO daily November 14, 2017 12:00am November 18, 2023 9:10am Comment on above: Take 75 mg by mouth once daily. 1 ml fentaNYL 0.05 mg/ml injection (2 sources) Opioid Agonist Start: 11-09-2024 End: 11-09-2024 50 mcg, INTRAVENOUS, ONCE, 1 dose, On Fri11/09/24 at 1200, Recovery or Phase I (only) Start: 11-09-2024 End: 11-09-2024 50 mcg, INTRAVENOUS, ONCE, 1 dose, On Fri11/09/24 at 1130, Recovery or Phase I (only) fluorometholone 1 mg/ml ophthalmic suspension (6 sources) Corticosteroid Start: 08-07-2021 End: 09-08-2021 fluorometholone (FML LIQUID FILM) 0.1 % ophthalmic suspension Use 1 Drop in both eyes three times daily. 5 mL 2 08/07/2021 09/08/2021 Discontinued (Course of therapy completed) Comment on above: Use 1 Drop in both e yes three times daily. indomethacin 50 mg rectal suppository (1 source) Nonsteroidal Anti-inflammatory Drug Start: 11-09-2024 End: 11-09-2024 100 mg, RECTAL, DIRECTED, Starting on Fri11/09/24 at 1000, Until Fri11/09/24 at 1359, Dosing as directed for intraprocedural use only REFRIGERATE, Intraprocedure Lactobac Acidoph-Fructooligos 1 EACH tablet (2 sources) Start: 12-02-2017 End: 01-21-2018 Lactobac Acidoph-Fructooligos 1 EACH tablet Discontinued 1 NMA PO TWICE A DAY December 02, 2017 12:00am January 21, 2018 11:47am Start: 12-02-2017 End: 01-21-2018 Lactobac Acidoph-Fructooligo s 1 EACH tablet Discontinued 1 NMA PO TWICE A DAY December 02, 2017 12:00am January 21, 2018 11:47am metoclopramide 5 mg oral tablet (4 sources) Dopamine-2 Receptor Antagonist Start: 12-25-2023 End: 01-05-2024 take 1 tablet by mouth three times daily metoclopramide HCl (REGLAN) 5 mg tablet Take 1 tablet by mouth three times a day. 30 tablet 2 12/25/2023 01/05/2024 Discontinued (Other) 2 ml ondansetron 2 mg/ml injection (20 sources) Serotonin-3 Receptor Antagonist Start: 11-09-2024 End: 11-09-2024 4 mg, INTRAVENOUS, NEEDED, 1 dose, Starting on Fri11/09/24 at 1036, Until Fri11/09/24 at 1123, Nausea/Vomiting - First Line - Parenteral, Give IV push over 2 minutes. If still nauseated 10 min after first line antiemetic dose, proceed to second line antiemetic, Recovery or Phase I (only) Start: 01-05-2024 take 1 tablet by flori th every eight hours as needed ondansetron (ZOFRAN) 8 mg tablet Take 1 tablet by mouth every 8 hours as needed. 20 tablet 2 01/05/2024 Active pravastatin sodium 40 mg oral tablet (2 sources) HMG-CoA Reductase Inhibitor Start: 11-14-2017 End: 11-18-2023 take 1 tablet by mouth once daily Pravastatin 40 mg tablet Discontinued 40 mg PO daily November 14, 2017 12:00am November 18, 2023 9:10am propylene glycol 6 mg/ml ophthalmic solution (16 sources) Start: 08-07-2021 End: 01-05-2024 propylene glycoL (SYSTANE COMPLETE) 0.6 % drop Use 1 Drop in both eyes three times daily. 5 mL 08/07/2021 01/05/2024 Discontinued (Other) Start: 08-07-2021 propylene glyc oL (SYSTANE COMPLETE) 0.6 % drop Use 1 Drop in both eyes three times daily. 5 mL 0 08/07/2021 Active Comment on above: Use 1 Drop in both e yes three times daily. 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] Onset: 4 11-20-2023 Chronic Cancer of other GI organs; peritoneum (20 sources) Carcinoma of gallbladder; Translations: [Malignant neoplasm of gallbladder] Onset: 4 12-03-2023 Chronic Deficiency and other anemia (1 source) Anemia; Translations: [Anemia, unspecified] 12-16-2023 Episodic Disorders of lipid metabolism (2 sources) Hypercholesterolemia; Translations: [Pure hypercholesterolemia, unspecified] Onset: 2 Chronic Esophageal disorders (2 sources) Gastro-esophageal reflux disease without esophagitis; Translations: [Gastro-esophageal reflux disease without esophagitis] Onset: 2 Chronic Essential hypertension (20 sources) Essential hypertension; Translations: [Essential (primary) hypertension] Onset: 2 Chronic Inflammation; infection of eye (except that caused by tuberculosis or sexually transmitteddisease) (2 sources) Bilateral punctate keratitis of eyes; Translations: [Punctate keratitis, bilateral] Chronic Nonspecific chest pain (2 sources) Chest pain, unspecified; Translations: [Chest pain, unspecified] Onset: 2 Episodic Nutritional deficiencies (20 sources) Deficiency of macronutrients; Translations: [Unspecified severe protein-calorie malnutrition] Onset: 4 11-28-2023 Chronic Other and unspecified benign neoplasm (1 source) Nevus of choroid of right eye; Translations: [Benign neoplasm of right choroid] Episodic Other circulatory disease (2 sources) Elevated blood-pressure reading, without diagnosis of hypertension; Translations: [Elevated blood-pressure reading, without diagnosis of hypertension] Onset: 2 Episodic Other circulatory disease (2 sources) Personal history of transient ischemic attack (TIA), and cerebral infarction without residual deficits; Translations: [Prsnl hx of TIA (TIA), and cereb infrc w/o resid deficits] Onset: 2 Episodic Other endocrine disorders (2 sources) Adrenal mass; Translations: [Other specified disorders of adrenal gland] 06-08-2024 Chronic Other endocrine disorders (1 source) Other specified disorders of adrenal gland; Translations: [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)] Onset: 5 Chronic Other eye disorders (1 source) H/O: R cataract extraction; Translations: [Cataract extraction status, right eye] Episodic Other female genital disorders (2 sources) Cyst of abdomen; Translations: [Other specified conditions associated with female genital organs and menstrual cycle] 2024 Episodic Other gastrointestinal disorders (1 source) Adrenal mass 06-08-2024 Episodic Other non-epithelial cancer of skin (3 sources) Personal history of other malignant neoplasm of skin; 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] Onset: 2 11-26-2017 Episodic Comment on above: 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 Ovarian cyst (2 sources) Cyst of left ovary; Translations: [Unspecified ovarian cyst, left side] 08-28-2024 Episodic Unclassified (1 source) Established Patient Onset: Unclassified (1 source) Post Op Follow Up Onset: 4 Past or Other Problems Problem Classification Problem Date Documented Da te Episodic/Chronic Abdominal pain (20 sources) Unspecified abdominal pain; Translations: [Abdominal pain] Onset: 11-18-2023 11-18-2023 Episodic Biliary tract disease (20 sources) Calculus of common bile duct with acute cholecystitis; Translations: [Calculus of bile duct with acute cholecystitis without obstruction] Onset: 11-18-2023 11-19-2023 Episodic Cataract (20 sources) Senile combined form cataract of right eye; Translations: [Combined forms of age-related cataract, right eye] Onset: 08-07-2021 Resolved: 09-07-2021 Chronic Deficiency and other anemia (1 source) Anemia, unspecified; Translations: [Anemia, unspecified type] Onset: 12-16-2023 Episodic Other aftercare (1 source) 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; Translations: [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] Onset: 08-30-2021 Episodic Other circulatory disease (2 sources) History of transient ischemic attack; Translations: [Personal history of transient ischemic attack (TIA), and cerebral infarction without residual deficits] Onset: 08-30-2021 11-02-2024 Episodic Other eye disorders (20 sources) Fuchs' corneal dystrophy; Translations: [Fuchs' corneal dystrophy of both eyes] Onset: 08-07-2021 Episodic Other eye disorders (20 sources) H/O: L cataract extraction; Translations: [Cataract extraction status, left eye] Onset: 08-31-2021 Resolved: 04-09-2022 Episodic Other female genital disorders (1 source) Other specified conditions associated with female genital organs and menstrual cycle; Translations: [Pelvic cyst in female] Onset: 04-26-2024 Episodic Other gastrointestinal disorders (1 source) Intra-abdominal and pelvic swelling, mass and lump, unspecified site; Translations: [Pelvic mass] Onset: 06-22-2024 Episodic Other gastrointestinal disorders (1 source) Other intra-abdominal and pelvic swelling, mass and lump; Translations: [Other intra-abdominal and pelvic swelling, mass and lump] Onset: 06-22-2024 Episodic Other screening for suspected conditions (not mental disorders or infectious disease) (3 sources) CT of pelvis abnormal; Translations: [Abnormal findings on diagnostic imaging of other abdominal regions, including retroperitoneum] Onset: 04-26-2024 2024 Episodic Residual codes; unclassified (1 source) Asymptomatic menopausal state; Translations: [Asymptomatic menopausal state] Onset: 06-17-2024 Episodic Results Test Name Value Interpretation Reference Range Facility ANES POSTPROC EVALon 025 ANES POSTPROC EVAL Normal [facility] ANES PRE-OPon 11-09-2024 ANES PRE-OP Normal [facility] ERCPon 11-09-2024 ERCP Normal [facility] ERCP Study observation Narra tiveon 11-09-2024 [facility] Gastrointestinal Endoscopy Patient Name: Marie Blair Procedure Date: 11/09/2024 9:17 AM Date of : 1945 Admit Type: Outpatient Room: [place] [address] Gender: Female Note Status: Finalized Attending MD: Stacy Santamaria MD, [id number] Procedure: ERCP Indications: Jaundice, Elevated liver enzymes Providers: Stacy Santamaria MD Patient Profile: Refer to note in patient chart for documentation of history and physical. Referring Physician: Tin Jose (Referring MD) Medicines: General Anesthesia, Indomethacin 100 mg [place] Complications: No immediate complications. Requesting Provider: Mikala Jones MD Procedure: Pre-Anesthesia Assessment: - Prior to the procedure, a History and Physical was performed, and patient medications and allergies were reviewed. The patient is competent. The risks and benefits of the procedure and the sedation options and risks were discussed with the patient. All questions were answered and informed consent was obtained. Patient identification and proposed procedure were verified by the physician, the nurse and the anesthesiologist in the pre-procedure area in the procedure room. Mental Status Examination: alert and oriented. Airway Examination: normal oropharyngeal airway and neck mobility. Respiratory Examination: clear to auscultation. CV Examination: normal. Prophylactic Antibiotics: The patient does not require prophylactic antibiotics. Prior Anticoagulants: The patient has taken no anticoagulant or antiplatelet agents. ASA Grade Assessment: III - A patient with severe systemic disease. After reviewing the risks and benefits, the patient was deemed in satisfactory condition to undergo the procedure. The anesthesia plan was to use general anesthesia. Immediately prior to administration of medications, the patient was re-assessed for adequacy to receive sedatives. The heart rate, respiratory rate, oxygen saturations, blood pressure, adequacy of pulmonary ventilation, and response to care were monitored throughout the procedure. The physical status of the patient was re-assessed after the procedure. After obtaining informed consent, the scope was passed under direct vision. Throughout the procedure, the patient's blood pressure, pulse, and oxygen saturations were monitored continuously. The Duodenoscope was introduced through the mouth, and advanced to the duodenum and used to inject contrast into the bile duct. I was present and participated during the entire procedure, including non-chacko portions, and during the administration and monitoring of Moderate Sedation. The ERCP was accomplished without difficulty. The patient tolerated the procedure well. Moderate Sedation: An independent trained observer was present and continuously monitored the patient. 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 Surgical clips were seen. The esophagus was successfully intubated under direct vision. The scope was advanced to a normal major papilla in the descending duodenum without detailed examination of the pharynx, larynx and associated structures, and upper GI tract. The upper GI tract was grossly normal. The major papilla was on the rim of a diverticulum. The bile duct was deeply cannulated with the short-nosed traction sphincterotome. Contrast was injected. I personally interpreted the bile duct images. There was appropriate flow of contrast through the ducts. Image quality was adequate. Opacification of the main bile duct and left intrahepatic branches was successful. - A single localized hi (more content not included)... [employer]OVATION [facility] Radiology Study observation (narrative) [facility] Comprehensive metabolic 2000 panelon 11-02-2024 Albumin [Mass/Vol] 3.9 g/dL Normal 3.9-4.9 [facility] Comment on above: Order Comment: Speci men Type: BLOOD SPECIMENOrdering Facility: [facility] Address: [address] [place] [address] Performed By: #### 2 4323-8 ####[facility]ORATORYCLIA [id number] [place] [address] [place] ALP [Catalytic activity/Vol] 329 U/L High 34-123 [facility] Comment on above: Order Comment: Speci men Type: BLOOD SPECIMENOrdering Facility: [facility] Address: [address] [place] [address] Performed By: #### 2 4323-8 ####[facility]ORATORYCLIA [id number] [place] [address] [place] ALT With P-5'-P [Catalytic activity/Vol] 59 U/L High 7-38 [facility] Comment on above: Order Comment: Speci men Type: BLOOD SPECIMENOrdering Facility: [facility] Address: [address] [place] [address] Performed By: #### 2 4323-8 ####[facility] LABORATORYCLIA [id number] [place] [address] [place] Anion gap [Moles/Vol] 13 mmol/L Normal 8-15 [facility] Comment on above: Order Comment: Speci men Type: BLOOD SPECIMENOrdering Facility: [facility] Address: [address] [place] [address] Performed By: #### 2 4323-8 ####[facility] LABORATORYCLIA [id number] [address] [place] AST With P-5'-P [Catalytic activity/Vol] 70 U/L High 13-35 [facility] Comment on above: Order Comment: Speci men Type: BLOOD SPECIMENOrdering Facility: [facility] Address: [address] [place] [address] Performed By: #### 2 4323-8 ####[facility]ORATORYCLIA [id number] [address] [place] Bilirubin [Mass/Vol] 7.5 mg/dL High 0.2-1.3 [facility] Comment on above: Order Comment: Speci men Type: BLOOD SPECIMENOrdering Facility: [facility] Address: [address] [place] [address] Performed By: #### 2 4323-8 ####[facility] LABORATORYCLIA [id number] [place] [address] [place] Calcium [Mass/Vol] 9.6 mg/dL Normal 8.5-10.2 [facility] Comment on above: Order Comment: Speci men Type: BLOOD SPECIMENOrdering Facility: [facility] Address: [address] [place] [address] Performed By: #### 2 4323-8 ####[facility] LABORATORYCLIA [id number] [place] [address] [place] Chloride [Moles/Vol] 103 mmol/L Normal 98-107 [facility] Comment on above: Order Comment: Speci men Type: BLOOD SPECIMENOrdering Facility: [facility] Address: [address] [place] [address] Performed By: #### 2 4323-8 ####[facility] LABORATORYCLIA [id number] [place] [address] [place] CO2 [Moles/Vol] 23 mmol/L Normal 22-30 [facility] Comment on above: Order Comment: Speci men Type: BLOOD SPECIMENOrdering Facility: [facility] Address: [address] [place] [address] Performed By: #### 2 4323-8 ####[facility] LABORATORYCLIA [id number] [place] [address] [place] Creatinine [Mass/Vol] 0.67 mg/dL Normal 0.58-0.96 [facility] Comment on above: Order Comment: Speci men Type: BLOOD SPECIMENOrdering Facility: [facility] Address: [address] [place] [address] Performed By: #### 2 4323-8 ####[facility] LABORATORYCLIA [id number] [place] [address] [place] eGFRcr SerPlBld CKD-EPI 2020 89 mL/min/1.73m??? Normal >=60 [facility] Comment on above: Order Comment: Speci men Type: BLOOD SPECIMENOrdering Facility: [facility] Address: [address] [place] [address] Result Comment: Rosana mated Glomerular Filtration Rate (eGFR) is calculated using the 2020 CKD-EPI creatinine equation. This equation utilizes serum creatinine, sex, and age as parameters. The creatinine assay has traceable calibration to isotope dilution-mass spectrometry. Refer to KDIGO guidelines for clinical interpretation. In patients with unstable renal function, e.g. those with acute kidney injury, the eGFR may not accurately reflect actual GFR. Performed By: #### 2 4323-8 ####[facility] LABORATORYCLIA [id number] [place] [address] [place] Glucose [Mass/Vol] 109 mg/dL High 74-99 [facility] Comment on above: Order Comment: Antwan rowland Type: BLOOD SPECIMENOrdering Facility: [facility] Address: [address] [place] [address] Result Comment: The [place] Diabetes Association (ADA) provides guidance for cutoff values for fasting glucose and random glucose. The ADA defines fasting as no caloric intake for at least 8 hours. Fasting plasma glucose results between 100 to 125 mg/dL indicate increased risk for diabetes (prediabetes).Fasting plasma glucose results greater than or equal to 126 mg/dL meet the criteria for diagnosis of diabetes. In the absence of unequivocal hyperglycemia, results should be confirmed by repeat testing. In a patient with classic symptoms of hyperglycemia or hyperglycemic crisis, random plasma glucose results greater than or equal to 200 mg/dL meet the criteria for diagnosis of diabetes.Reference: Standards of Medical Care in Diabetes 2016, [place] Diabetes Association. Diabetes Care. 2016.39(Suppl 1). Performed By: #### 2 4323-8 ####[facility] LABORATORYCLIA [id number] [place] [address] [place] Potassium [Moles/Vol] 4.1 mmol/L Normal 3.7-5.1 [facility] Comment on above: Order Comment: Antwan rowland Type: BLOOD SPECIMENOrdering Facility: [facility] Address: [address] [id number] Performed By: #### 2 4323-8 ####[facility]ORATORYCLIA [id number] [place] [address] [place] Protein [Mass/Vol] 7.0 g/dL Normal 6.3-8.0 [facility] Comment on above: Order Comment: Speci men Type: BLOOD SPECIMENOrdering Facility: [facility] Address: [address] [place] [address] Performed By: #### 2 4323-8 ####[facility] LABORATORYCLIA [id number] [place] [id number] [place] Sodium [Moles/Vol] 139 mmol/L Normal 136-144 [facility] Comment on above: Order Comment: Speci men Type: BLOOD SPECIMENOrdering Facility: [facility] Address: [address] [place] [address] Performed By: #### 2 4323-8 ####[facility] LABORATORYCLIA [id number] [place] [address] [place] Urea nitrogen [Mass/Vol] 14 mg/dL Normal 7-21 [facility] Comment on above: Order Comment: Speci men Type: BLOOD SPECIMENOrdering Facility: [facility] Address: [address] [place] [address] Performed By: #### 2 4323-8 ####[facility] LABORATORYCLIA [id number] [place] [address] [place] HISTORY PHYSICALon HISTORY PHYSICAL Normal [facility] CNPNon 10-26-2024 CNPN Normal [facility] CBC W Auto Differential pane l (Bld)on 10-25-2024 Basophils (Bld) [#/Vol] 10*3/uL Normal <0.11 [facility] Comment on above: Order Comment: Speci men Type: BLOOD SPECIMENOrdering Facility: [facility] Address: [address] [place] [address] Performed By: #### 5 7021-8 ####[facility]SELING CENTERLI [id number] [place] [address] [place] Basophils/100 WBC (Bld) 0.4 % Normal [facility] Comment on above: Order Comment: Speci men Type: BLOOD SPECIMENOrdering Facility: [facility] Address: [address] [place] [address] Performed By: #### 5 7021-8 ####[facility] HOSPITALJACOBY [id number] [place] [address] [place] Differential cell count method Nom (Bld) Auto Normal [facility] Comment on above: Order Comment: Speci men Type: BLOOD SPECIMENOrdering Facility: [facility] Address: [address] [place] [address] Performed By: #### 5 7021-8 ####[facility] [id number] [place] [address] [place] Eosinophils (Bld) [#/Vol] 0.06 10*3/uL Normal <0.46 [facility] Comment on above: Order Comment: Speci men Type: BLOOD SPECIMENOrdering Facility: [facility] Address: [address] [place] [address] Performed By: #### 5 7021-8 ####[facility] [id number] [place] [address] [place] Eosinophils/100 WBC (Bld) 1.1 % Normal [facility] Comment on above: Order Comment: Speci men Type: BLOOD SPECIMENOrdering Facility: [facility] Address: [address] [place] [address] Performed By: #### 5 7021-8 ####[facility] [id number] [place] [address] [place] Erythrocyte distribution width (RBC) [Ratio] 16.5 % High 11.5-15.0 [facility] Comment on above: Order Comment: Speci men Type: BLOOD SPECIMENOrdering Facility: [facility] Address: [address] [place] [address] Performed By: #### 5 7021-8 ####[facility] CENTERLIA [id number] [place] [address] [place] Hematocrit (Bld) [Volume fraction] 36.2 % Normal 36.0-46.0 [facility] Comment on above: Order Comment: Speci men Type: BLOOD SPECIMENOrdering Facility: [facility] Address: [address] [place] [address] Performed By: #### 5 7021-8 ####[facility] CENTERLIA [id number] [place] [address] [place] Hemoglobin (Bld) [Mass/Vol] 12.0 g/dL Normal 11.5-15.5 [facility] Comment on above: Order Comment: Speci men Type: BLOOD SPECIMENOrdering Facility: [facility] Address: [address] [place] [address] Performed By: #### 5 7021-8 ####[facility] ERA [id number] [place] [address] [place] Immature granulocytes (Bld) [#/Vol] 10*3/uL Normal <0.10 [facility] Comment on above: Order Comment: Speci men Type: BLOOD SPECIMENOrdering Facility: [facility] Address: [address] [place] [address] Performed By: #### 5 7021-8 ####[facility] CENTERLIA [id number] [place] [address] [place] Immature granulocytes/100 WBC (Bld) 0.2 % Normal [facility] Comment on above: Order Comment: Speci men Type: BLOOD SPECIMENOrdering Facility: [facility] Address: [address] [place] [address] Performed By: #### 5 7021-8 ####[facility]ICAL CENTERLIA [id number] [place] [address] [place] Lymphocytes (Bld) [#/Vol] 1.48 10*3/uL Normal 1.00-4.00 [facility] Comment on above: Order Comment: Speci men Type: BLOOD SPECIMENOrdering Facility: [facility] Address: [address] [place] [address] Performed By: #### 5 7021-8 ####[facility] [id number] [place] [address] [place] Lymphocytes/100 WBC (Bld) 26.8 % Normal [facility] Comment on above: Order Comment: Speci men Type: BLOOD SPECIMENOrdering Facility: [facility] Address: [address] [place] [address] Performed By: #### 5 7021-8 ####[facility] HOSPITALNCLI [id number] [place] [address] [place] MCH (RBC) [Entitic mass] 30.7 pg Normal 26.0-34.0 [facility] Comment on above: Order Comment: Speci men Type: BLOOD SPECIMENOrdering Facility: [facility] Address: [address] [place] [address] Performed By: #### 5 7021-8 ####[facility] HOSPITALNCLAKEVIEW H[facility] [id number] [place] [address] [place] MCHC (RBC) [Mass/Vol] 33.1 g/dL Normal 30.5-36.0 [facility] Comment on above: Order Comment: Speci men Type: BLOOD SPECIMENOrdering Facility: [facility] Address: [address] [place] [address] Performed By: #### 5 7021-8 ####[facility] HOSPITALNCLI [id number] [place] [address] [place] MCV (RBC) [Entitic vol] 92.6 fL Normal 80.0-100.0 [facility] Comment on above: Order Comment: Speci men Type: BLOOD SPECIMENOrdering Facility: [facility] Address: [address] [place] [address] Performed By: #### 5 7021-8 ####[facility] ALISSAA [id number] [place] [address] [place] Monocytes (Bld) [#/Vol] 0.65 10*3/uL Normal <0.87 [facility] Comment on above: Order Comment: Speci men Type: BLOOD SPECIMENOrdering Facility: [facility] Address: [address] [place] [address] Performed By: #### 5 7021-8 ####[facility] [id number] [place] [address] [place] Monocytes/100 WBC (Bld) 11.8 % Normal [facility] Comment on above: Order Comment: Speci men Type: BLOOD SPECIMENOrdering Facility: [facility] Address: [address] [place] [address] Performed By: #### 5 7021-8 ####[facility] [id number] [place] [address] [place] Neutrophils (Bld) [#/Vol] 3.31 10*3/uL Normal 1.45-7.50 [facility] Comment on above: Order Comment: Speci men Type: BLOOD SPECIMENOrdering Facility: [facility] Address: [address] [place] [address] Performed By: #### 5 7021-8 ####[facility] HOSPITALNCLIA [id number] [place] [address] [place] Neutrophils/100 WBC (Bld) 59.7 % Normal [facility] Comment on above: Order Comment: Speci men Type: BLOOD SPECIMENOrdering Facility: [facility] Address: [address] [place] [address] Performed By: #### 5 7021-8 ####[facility] SHANDRAWNCLIA [id number] [place] [address] [place] Nucleated RBC (Bld) [#/Vol] 10*3/uL Normal <0.01 [facility] Comment on above: Order Comment: Speci men Type: BLOOD SPECIMENOrdering Facility: [facility] Address: [address] [place] [address] Performed By: #### 5 7021-8 ####[facility] HOSPITALANA MLIA [id number] [place] [address] [place] Nucleated RBC/100 WBC (Bld) [Ratio] 0.0 /100 WBC Normal [facility] Comment on above: Order Comment: Speci men Type: BLOOD SPECIMENOrdering Facility: [facility] Address: [address] [place] [address] Performed By: #### 5 7021-8 ####[facility] [id number] [place] [address] [place] Platelet mean volume (Bld) [Entitic vol] 11.4 fL Normal 9.0-12.7 [facility] Comment on above: Order Comment: Speci men Type: BLOOD SPECIMENOrdering Facility: [facility] Address: [address] [place] [address] Performed By: #### 5 7021-8 ####[facility] CENTERLIA [id number] [place] [address] [place] Platelets (Bld) [#/Vol] 259 10*3/uL Normal 150-400 [facility] Comment on above: Order Comment: Speci men Type: BLOOD SPECIMENOrdering Facility: [facility] Address: [address] [place] [address] Performed By: #### 5 7021-8 ####[facility] HOSPITALNCLIA [id number] [place] [address] [place] RBC (Bld) [#/Vol] 3.91 10*6/uL Normal 3.90-5.20 [facility] Comment on above: Order Comment: Speci men Type: BLOOD SPECIMENOrdering Facility: [facility] Address: [address] [place] [address] Performed By: #### 5 7021-8 ####[facility] PORT ORANGEMichaelNCLENINA [id number] [place] [address] [place] WBC (Bld) [#/Vol] 5.53 10*3/uL Normal 3.70-11.00 [facility] Comment on above: Order Comment: Speci men Type: BLOOD SPECIMENOrdering Facility: [facility] Address: [address] [place] [address] Performed By: #### 5 7021-8 ####[facility] HOSPITALNCSANDRA [id number] [place] [address] [place] Comprehensive metabolic 2000 panelon 10-25-2024 Albumin [Mass/Vol] 3.7 g/dL Low 3.9-4.9 [facility] Comment on above: Order Comment: Speci men Type: BLOOD SPECIMENOrdering Facility: [facility] Address: [address] [place] [address] Performed By: #### 2 4323-8 ####[facility] HOSPITALNCLENINA [id number] [place] [address] [place] ALP [Catalytic activity/Vol] 309 U/L High 34-123 [facility] Comment on above: Order Comment: Speci men Type: BLOOD SPECIMENOrdering Facility: [facility] Address: [address] [place] [address] Performed By: #### 2 4323-8 ####[facility] PORT ORANGEWNCLIA [id number] [place] [address] [place] ALT [Catalytic activity/Vol] 68 U/L High 7-38 [facility] Comment on above: Order Comment: Speci men Type: BLOOD SPECIMENOrdering Facility: [facility] Address: [address] [place] [address] Performed By: #### 2 4323-8 ####[facility] KANDISWNCLIA [id number] [place] [address] [place] Anion gap [Moles/Vol] 12 mmol/L Normal 8-15 [facility] Comment on above: Order Comment: Speci men Type: BLOOD SPECIMENOrdering Facility: [facility] Address: [address] [place] [address] Performed By: #### 2 4323-8 ####[facility] PORT ORANGEWNCLIA [id number] [place] [address] [place] AST [Catalytic activity/Vol] 60 U/L High 13-35 [facility] Comment on above: Order Comment: Speci men Type: BLOOD SPECIMENOrdering Facility: [facility] Address: [address] [place] [address] Performed By: #### 2 4323-8 ####[facility] HOSPITALNCLIA [id number] [place] [address] [place] Bilirubin [Mass/Vol] 6.8 mg/dL High 0.2-1.3 [facility] Comment on above: Order Comment: Speci men Type: BLOOD SPECIMENOrdering Facility: [facility] Address: [address] [place] [address] Performed By: #### 2 4323-8 ####[facility] MILLWNCLIA [id number] [place] [address] [place] Calcium [Mass/Vol] 10.0 mg/dL Normal 8.5-10.2 [facility] Comment on above: Order Comment: Speci men Type: BLOOD SPECIMENOrdering Facility: [facility] Address: [address] [place] [address] Performed By: #### 2 4323-8 ####[facility] MILLWNCLIA [id number] [place] [address] [place] Chloride [Moles/Vol] 109 mmol/L High 98-107 [facility] Comment on above: Order Comment: Speci men Type: BLOOD SPECIMENOrdering Facility: [facility] Address: [address] [place] [address] Performed By: #### 2 4323-8 ####[facility] HOSPITALNCLI [id number] [place] [address] [place] CO2 [Moles/Vol] 20 mmol/L Low 22-30 [facility] Comment on above: Order Comment: Speci men Type: BLOOD SPECIMENOrdering Facility: [facility] Address: [address] [place] [address] Performed By: #### 2 4323-8 ####[facility] [id number] [place] [address] [place] Creatinine [Mass/Vol] 0.71 mg/dL Normal 0.58-0.96 [facility] Comment on above: Order Comment: Speci men Type: BLOOD SPECIMENOrdering Facility: [facility] Address: [address] [place] [address] Performed By: #### 2 4323-8 ####[facility] HOSPITALNCLI [id number] [place] [address] [place] eGFRcr SerPlBld CKD-EPI 2020 87 mL/min/1.73m??? Normal >=60 [facility] Comment on above: Order Comment: Speci men Type: BLOOD SPECIMENOrdering Facility: [facility] Address: [address] [place] [address] Result Comment: Rosana mated Glomerular Filtration Rate (eGFR) is calculated using the 2020 CKD-EPI creatinine equation. This equation utilizes serum creatinine, sex, and age as parameters. The creatinine assay has traceable calibration to isotope dilution-mass spectrometry. Refer to KDIGO guidelines for clinical interpretation. In patients with unstable renal function, e.g. those with acute kidney injury, the eGFR may not accurately reflect actual GFR. Performed By: #### 2 4323-8 ####[facility] MARQUISWNCLIA [id number] [place] [address] [place] Glucose [Mass/Vol] 105 mg/dL High 74-99 [facility] Comment on above: Order Comment: Antwan rowland Type: BLOOD SPECIMENOrdering Facility: [facility] Address: [address] [place], [place] [address] Result Comment: The [place] Diabetes Association (ADA) provides guidance for cutoff values for fasting glucose and random glucose. The ADA defines fasting as no caloric intake for at least 8 hours. Fasting plasma glucose results between 100 to 125 mg/dL indicate increased risk for diabetes (prediabetes).Fasting plasma glucose results greater than or equal to 126 mg/dL meet the criteria for diagnosis of diabetes. In the absence of unequivocal hyperglycemia, results should be confirmed by repeat testing. In a patient with classic symptoms of hyperglycemia or hyperglycemic crisis, random plasma glucose results greater than or equal to 200 mg/dL meet the criteria for diagnosis of diabetes.Reference: Standards of Medical Care in Diabetes 2016, [place] Diabetes Association. Diabetes Care. 2016.39(Suppl 1). Performed By: #### 2 4323-8 ####[facility] HOSPITALNCLIA [id number] [place] [address] [place] Potassium [Moles/Vol] 4.0 mmol/L Normal 3.7-5.1 [facility] Comment on above: Order Comment: Antwan men Type: BLOOD SPECIMENOrdering Facility: [facility] Address: [address] [place] [address] Performed By: #### 2 4323-8 ####[facility] KANDISWNCLIA [id number] [place] [address] [place] Protein [Mass/Vol] 7.0 g/dL Normal 6.3-8.0 [facility] Comment on above: Order Comment: Speci men Type: BLOOD SPECIMENOrdering Facility: [facility] Address: [address] [place] [address] Performed By: #### 2 4323-8 ####[facility] LEWISLIA [id number] [place] [address] [place] Sodium [Moles/Vol] 141 mmol/L Normal 136-144 [facility] Comment on above: Order Comment: Speci men Type: BLOOD SPECIMENOrdering Facility: [facility] Address: [address] [place] [address] Performed By: #### 2 4323-8 ####[facility] LEWISLIA [id number] [place] [address] [place] Urea nitrogen [Mass/Vol] 17 mg/dL Normal 7-21 [facility] Comment on above: Order Comment: Speci men Type: BLOOD SPECIMENOrdering Facility: [facility] Address: [address] [place] [address] Performed By: #### 2 4323-8 ####[facility] HOSPITALANA MLIA [id number] [place] [address] [place] CNPNon 10-20-2024 CNPN Normal [facility] CT ABD/PEL W IVCONon 025 CT ABD/PEL W IVCON Normal [facility] CT CHEST W IVCONon 5 CT CHEST W IVCON Normal [facility] Creatinine and Glomerular fi ltration rate.predicted panel (S/P/Bld)on 10-13-2024 Creatinine [Mass/Vol] 0.72 mg/dL Normal 0.58-0.96 [facility] Comment on above: Order Comment: Speci men Type: BLOOD SPECIMENOrdering Facility: [facility] Address: [address] [place] [address] Performed By: #### 4 5066-8 ####[facility] MILLTOWNCLIA [id number] [place] [address] [place] eGFRcr SerPlBld CKD-EPI 2020 85 mL/min/1.73m??? Normal >=60 [facility] Comment on above: Order Comment: Speci men Type: BLOOD SPECIMENOrdering Facility: [facility] Address: [address] [place] [address] Result Comment: Rosana mated Glomerular Filtration Rate (eGFR) is calculated using the 2020 CKD-EPI creatinine equation. This equation utilizes serum creatinine, sex, and age as parameters. The creatinine assay has traceable calibration to isotope dilution-mass spectrometry. Refer to KDIGO guidelines for clinical interpretation. In patients with unstable renal function, e.g. those with acute kidney injury, the eGFR may not accurately reflect actual GFR. Performed By: #### 4 5066-8 ####[facility] [id number] [place] [address] [place] CNPNon 10-11-2024 CNPN Normal [facility] CBC W Auto Differential pane l (Bld)on 07-14-2024 Basophils (Bld) [#/Vol] 0.03 10*3/uL Normal <0.11 [facility] Comment on above: Order Comment: Speci men Type: BLOOD SPECIMENOrdering Facility: [facility] Address: [address] [place] [address] Performed By: #### 5 7021-8 ####[facility] [id number] [place] [address] [place] Basophils/100 WBC (Bld) 0.4 % Normal [facility] Comment on above: Order Comment: Speci men Type: BLOOD SPECIMENOrdering Facility: [facility] Address: [address] [place] [address] Performed By: #### 5 7021-8 ####[facility] [id number] [place] [address] [place] Differential cell count method Nom (Bld) Auto Normal [facility] Comment on above: Order Comment: Speci men Type: BLOOD SPECIMENOrdering Facility: [facility] Address: [address] [place] [address] Performed By: #### 5 7021-8 ####[facility] SHANDRACASEY [id number] [place] [address] [place] Eosinophils (Bld) [#/Vol] 0.14 10*3/uL Normal <0.46 [facility] Comment on above: Order Comment: Speci men Type: BLOOD SPECIMENOrdering Facility: [facility] Address: [address] [place] [address] Performed By: #### 5 7021-8 ####[facility] HOSPITALANA [facility] [id number] [place] [address] [place] Eosinophils/100 WBC (Bld) 2.1 % Normal [facility] Comment on above: Order Comment: Speci men Type: BLOOD SPECIMENOrdering Facility: [facility] Address: [address] [place] [address] Performed By: #### 5 7021-8 ####[facility]OSPITALNCLAKEVIEW [facility] [id number] [place] [address] [place] Erythrocyte distribution width (RBC) [Ratio] 16.7 % High 11.5-15.0 [facility] Comment on above: Order Comment: Speci men Type: BLOOD SPECIMENOrdering Facility: [facility] Address: [address] [place] [address] Performed By: #### 5 7021-8 ####[facility] ERA [id number] [place] [address] [place] Hematocrit (Bld) [Volume fraction] 32.0 % Low 36.0-46.0 [facility] Comment on above: Order Comment: Speci men Type: BLOOD SPECIMENOrdering Facility: [facility] Address: [address] [place] [address] Performed By: #### 5 7021-8 ####[facility] SHANDRAROWENANCLIA [id number] [place] [address] [place] Hemoglobin (Bld) [Mass/Vol] 10.8 g/dL Low 11.5-15.5 [facility] Comment on above: Order Comment: Speci men Type: BLOOD SPECIMENOrdering Facility: [facility] Address: [address] [place] [address] Performed By: #### 5 7021-8 ####[facility] CENTERLIA [id number] [place] [address] [place] Immature granulocytes (Bld) [#/Vol] 0.03 10*3/uL Normal <0.10 [facility] Comment on above: Order Comment: Speci men Type: BLOOD SPECIMENOrdering Facility: [facility] Address: [address] [place] [address] Performed By: #### 5 7021-8 ####[facility] [id number] [place] [address] [place] Immature granulocytes/100 WBC (Bld) 0.4 % Normal [facility] Comment on above: Order Comment: Speci men Type: BLOOD SPECIMENOrdering Facility: [facility] Address: [address] [place] [address] Performed By: #### 5 7021-8 ####[facility] CENTERLIA [id number] [place] [address] [place] Lymphocytes (Bld) [#/Vol] 2.84 10*3/uL Normal 1.00-4.00 [facility] Comment on above: Order Comment: Speci men Type: BLOOD SPECIMENOrdering Facility: [facility] Address: [address] [place] [address] Performed By: #### 5 7021-8 ####[facility] HOSPITALNCLIA [id number] [place] [address] [place] Lymphocytes/100 WBC (Bld) 41.9 % Normal [facility] Comment on above: Order Comment: Speci men Type: BLOOD SPECIMENOrdering Facility: [facility] Address: [address] [place] [address] Performed By: #### 5 7021-8 ####[facility] HOSPITALNCLAKEVIEW [facility] [id number] [place] [address] [place] MCH (RBC) [Entitic mass] 35.3 pg High 26.0-34.0 [facility] Comment on above: Order Comment: Speci men Type: BLOOD SPECIMENOrdering Facility: [facility] Address: [address] [place] [address] Performed By: #### 5 7021-8 ####[facility]ITALNCLAKEVIEW [facility] [id number] [place] [address] [place] MCHC (RBC) [Mass/Vol] 33.8 g/dL Normal 30.5-36.0 [facility] Comment on above: Order Comment: Speci men Type: BLOOD SPECIMENOrdering Facility: [facility] Address: [address] [place] [address] Performed By: #### 5 7021-8 ####[facility] HOSPITALNCLI [id number] [place] [address] [place] MCV (RBC) [Entitic vol] 104.6 fL High 80.0-100.0 [facility] Comment on above: Order Comment: Speci men Type: BLOOD SPECIMENOrdering Facility: [facility] Address: [address] [place] [address] Performed By: #### 5 7021-8 ####[facility] HOSPITALNCLI [id number] [place] [address] [place] Monocytes (Bld) [#/Vol] 0.70 10*3/uL Normal <0.87 [facility] Comment on above: Order Comment: Speci men Type: BLOOD SPECIMENOrdering Facility: [facility] Address: [address] [place] [address] Performed By: #### 5 7021-8 ####[facility] SHANDRAROWENAJACOBYA [id number] [place] [address] [place] Monocytes/100 WBC (Bld) 10.3 % Normal [facility] Comment on above: Order Comment: Speci men Type: BLOOD SPECIMENOrdering Facility: [facility] Address: [address] [place] [address] Performed By: #### 5 7021-8 ####[facility] [id number] [place] [address] [place] Neutrophils (Bld) [#/Vol] 3.03 10*3/uL Normal 1.45-7.50 [facility] Comment on above: Order Comment: Speci men Type: BLOOD SPECIMENOrdering Facility: [facility] Address: [address] [place] [address] Performed By: #### 5 7021-8 ####[facility] [id number] [place] [address] [place] Neutrophils/100 WBC (Bld) 44.9 % Normal [facility] Comment on above: Order Comment: Speci men Type: BLOOD SPECIMENOrdering Facility: [facility] Address: [address] [place] [address] Performed By: #### 5 7021-8 ####[facility] [id number] [place] [address] [place] Nucleated RBC (Bld) [#/Vol] 10*3/uL Normal <0.01 [facility] Comment on above: Order Comment: Speci men Type: BLOOD SPECIMENOrdering Facility: [facility] Address: [address] [place] [address] Performed By: #### 5 7021-8 ####[facility] SHANDRAROWENAANA MLIA [id number] [place] [address] [place] Nucleated RBC/100 WBC (Bld) [Ratio] 0.0 /100 WBC Normal [facility] Comment on above: Order Comment: Speci men Type: BLOOD SPECIMENOrdering Facility: [facility] Address: [address] [place] [address] Performed By: #### 5 7021-8 ####[facility] HOSPITALJACOBYA [id number] [place] [address] [place] Platelet mean volume (Bld) [Entitic vol] 9.2 fL Normal 9.0-12.7 [facility] Comment on above: Order Comment: Speci men Type: BLOOD SPECIMENOrdering Facility: [facility] Address: [address] [place] [address] Performed By: #### 5 7021-8 ####[facility] ERSofie [id number] [place] [address] [place] Platelets (Bld) [#/Vol] 232 10*3/uL Normal 150-400 [facility] Comment on above: Order Comment: Speci men Type: BLOOD SPECIMENOrdering Facility: [facility] Address: [address] [place] [address] Performed By: #### 5 7021-8 ####[facility] CENTERLENINA [id number] [place] [address] [place] RBC (Bld) [#/Vol] 3.06 10*6/uL Low 3.90-5.20 [facility] Comment on above: Order Comment: Speci men Type: BLOOD SPECIMENOrdering Facility: [facility] Address: [address] [place] [address] Performed By: #### 5 7021-8 ####[facility] MED[facility] CENTERLIA [id number] [place] [address] [place] WBC (Bld) [#/Vol] 6.77 10*3/uL Normal 3.70-11.00 [facility] Comment on above: Order Comment: Speci men Type: BLOOD SPECIMENOrdering Facility: [facility] Address: [address] [place] [address] Performed By: #### 5 7021-8 ####[facility] ORANGEWNCLIA [id number] [place] [address] [place] CNOVSPon 07-14-2024 CNOVSP Normal [facility] metabolic 2000 panelon 07-14-2024 Albumin [Mass/Vol] 4.0 g/dL Normal 3.9-4.9 [facility] Comment on above: Order Comment: Speci men Type: BLOOD SPECIMENOrdering Facility: [facility] Address: [address] [place] [address] Performed By: #### 2 4323-8 ####[facility] HOSPITALNCLIA [id number] [place] [address] [place] ALP [Catalytic activity/Vol] 70 U/L Normal 34-123 [facility] Comment on above: Order Comment: Speci men Type: BLOOD SPECIMENOrdering Facility: [facility] Address: [address] [place] [address] Performed By: #### 2 4323-8 ####[facility] ORANGEWNCLIA [id number] [place] [address] [place] ALT [Catalytic activity/Vol] 5 U/L Low 7-38 [facility] Comment on above: Order Comment: Speci men Type: BLOOD SPECIMENOrdering Facility: [facility] Address: [address] [place] [address] Performed By: #### 2 4323-8 ####[facility] HOSPITALNCLIA [id number] [place] [address] [place] Anion gap [Moles/Vol] 8 mmol/L Normal 8-15 [facility] Comment on above: Order Comment: Speci men Type: BLOOD SPECIMENOrdering Facility: [facility] Address: [address] [place] [address] Performed By: #### 2 4323-8 ####[facility] HOSPITALNCLAKEVIEW H[facility] [id number] [place] [address] [place] AST [Catalytic activity/Vol] 10 U/L Low 13-35 [facility] Comment on above: Order Comment: Speci men Type: BLOOD SPECIMENOrdering Facility: [facility] Address: [address] [place] [address] Performed By: #### 2 4323-8 ####[facility] [id number] [place] [address] [place] Bilirubin [Mass/Vol] 0.3 mg/dL Normal 0.2-1.3 [facility] Comment on above: Order Comment: Speci men Type: BLOOD SPECIMENOrdering Facility: [facility] Address: [address] [place] [address] Performed By: #### 2 4323-8 ####[facility] [id number] [place] [address] [place] Calcium [Mass/Vol] 10.2 mg/dL Normal 8.5-10.2 [facility] Comment on above: Order Comment: Speci men Type: BLOOD SPECIMENOrdering Facility: [facility] Address: [address] [place] [address] Performed By: #### 2 4323-8 ####[facility] [id number] [place] [address] [place] Chloride [Moles/Vol] 105 mmol/L Normal 98-107 [facility] Comment on above: Order Comment: Speci men Type: BLOOD SPECIMENOrdering Facility: [facility] Address: [address] [place], [place] [address] Performed By: #### 2 4323-8 ####[facility] SHANDRAROWENANCLENINA [id number] [place] [address] [place] CO2 [Moles/Vol] 27 mmol/L Normal 22-30 [facility] Comment on above: Order Comment: Speci men Type: BLOOD SPECIMENOrdering Facility: [facility] Address: [address] [place] [address] Performed By: #### 2 4323-8 ####[facility] HOSPITALNCLAKEVIEW HOS[facility] [id number] [place] [address] [place] Creatinine [Mass/Vol] 0.73 mg/dL Normal 0.58-0.96 [facility] Comment on above: Order Comment: Speci men Type: BLOOD SPECIMENOrdering Facility: [facility] Address: [address] [place] [address] Performed By: #### 2 4323-8 ####[facility] HOSPITALNCLIA [id number] [place] [address] [place] Creatinine and Glomerular filtration rate.predicted panel (S/P/Bld) 84 mL/min/1.73m??? Normal >=60 [facility] Comment on above: Order Comment: Speci men Type: BLOOD SPECIMENOrdering Facility: [facility] Address: [address] [place] [address] Result Comment: Rosana mated Glomerular Filtration Rate (eGFR) is calculated using the 2020 CKD-EPI creatinine equation. This equation utilizes serum creatinine, sex, and age as parameters. The creatinine assay has traceable calibration to isotope dilution-mass spectrometry. Refer to KDIGO guidelines for clinical interpretation. In patients with unstable renal function, e.g. those with acute kidney injury, the eGFR may not accurately reflect actual GFR. Performed By: #### 2 4323-8 ####[facility] PORT ORANGEWNCLIA [id number] [place] [address] [place] Glucose [Mass/Vol] 127 mg/dL High 74-99 [facility] Comment on above: Order Comment: Speci men Type: BLOOD SPECIMENOrdering Facility: [facility] Address: [address] [place] [address] Result Comment: The [place] Diabetes Association (ADA) provides guidance for cutoff values for fasting glucose and random glucose. The ADA defines fasting as no caloric intake for at least 8 hours. Fasting plasma glucose results between 100 to 125 mg/dL indicate increased risk for diabetes (prediabetes).Fasting plasma glucose results greater than or equal to 126 mg/dL meet the criteria for diagnosis of diabetes. In the absence of unequivocal hyperglycemia, results should be confirmed by repeat testing. In a patient with classic symptoms of hyperglycemia or hyperglycemic crisis, random plasma glucose results greater than or equal to 200 mg/dL meet the criteria for diagnosis of diabetes.Reference: Standards of Medical Care in Diabetes 2016, [place] Diabetes Association. Diabetes Care. 2016.39(Suppl 1). Performed By: #### 2 4323-8 ####[facility] PORT ORANGEWNCLIA [id number] [place] [address] [place] Potassium [Moles/Vol] 4.1 mmol/L Normal 3.7-5.1 [facility] Comment on above: Order Comment: Antwan rowland Type: BLOOD SPECIMENOrdering Facility: [facility] Address: [address] [place] [address] Performed By: #### 2 4323-8 ####[facility] MILLWNCLIA [id number] [place] [address] [place] Protein [Mass/Vol] 6.5 g/dL Normal 6.3-8.0 [facility] Comment on above: Order Comment: Speci men Type: BLOOD SPECIMENOrdering Facility: [facility] Address: [address] [place] [address] Performed By: #### 2 4323-8 ####[facility] MILLTOWNCLIA [id number] [place] [address] [place] Sodium [Moles/Vol] 140 mmol/L Normal 136-144 [facility] Comment on above: Order Comment: Speci men Type: BLOOD SPECIMENOrdering Facility: [facility] Address: [address] [place] [address] Performed By: #### 2 4323-8 ####[facility] ORANGEWNCLIA [id number] [place] [address] [place] Urea nitrogen [Mass/Vol] 20 mg/dL Normal 7-21 [facility] Comment on above: Order Comment: Speci men Type: BLOOD SPECIMENOrdering Facility: [facility] Address: [address] [place] [address] Performed By: #### 2 4323-8 ####[facility] HOSPITALNCLIA [id number] [place] [address] [place] ABD/PEL W IVCONon 025 CT ABD/PEL W IVCON Normal [facility] CT CHEST W IVCONon CT CHEST W IVCON Normal [facility] CBC W Auto Differential pane l (Bld)on 06-22-2024 Basophils (Bld) [#/Vol] 10*3/uL Normal <0.11 [facility] Comment on above: Order Comment: Speci men Type: BLOOD SPECIMENOrdering Facility: [facility] Address: [address] [place] [address] Performed By: #### 5 7021-8 ####[facility] HOSPITALNCLIA [id number] [place] [address] [place] Basophils/100 WBC (Bld) 0.4 % Normal [facility] Comment on above: Order Comment: Speci men Type: BLOOD SPECIMENOrdering Facility: [facility] Address: [address] [place] [address] Performed By: #### 5 7021-8 ####[facility] HOSPITALNCLIA [id number] [place] [address] [place] Differential cell count method Nom (Bld) Auto Normal [facility] Comment on above: Order Comment: Speci men Type: BLOOD SPECIMENOrdering Facility: [facility] Address: [address] [place] [address] Performed By: #### 5 7021-8 ####[facility] PORT ORANGEWNCA [id number] [place] [address] [place] Eosinophils (Bld) [#/Vol] 0.17 10*3/uL Normal <0.46 [facility] Comment on above: Order Comment: Speci men Type: BLOOD SPECIMENOrdering Facility: [facility] Address: [address] [place] [address] Performed By: #### 5 7021-8 ####[facility] [id number] [place] [address] [place] Eosinophils/100 WBC (Bld) 3.3 % Normal [facility] Comment on above: Order Comment: Speci men Type: BLOOD SPECIMENOrdering Facility: [facility] Address: [address] [place] [address] Performed By: #### 5 7021-8 ####[facility] HOSPITALNCLI [id number] [place] [address] [place] Erythrocyte distribution width (RBC) [Ratio] 16.7 % High 11.5-15.0 [facility] Comment on above: Order Comment: Speci men Type: BLOOD SPECIMENOrdering Facility: [facility] Address: [address] [place] [address] Performed By: #### 5 7021-8 ####[facility] HOSPITALNCLI [id number] [place] [address] [place] Hematocrit (Bld) [Volume fraction] 36.1 % Normal 36.0-46.0 [facility] Comment on above: Order Comment: Speci men Type: BLOOD SPECIMENOrdering Facility: [facility] Address: [address] [place] [address] Performed By: #### 5 7021-8 ####[facility] SHANDRAROWENAANA MSofie [id number] [place] [address] [place] Hemoglobin (Bld) [Mass/Vol] 11.8 g/dL Normal 11.5-15.5 [facility] Comment on above: Order Comment: Speci men Type: BLOOD SPECIMENOrdering Facility: [facility] Address: [address] [place] [address] Performed By: #### 5 7021-8 ####[facility] [id number] [place] [address] [place] Immature granulocytes (Bld) [#/Vol] 10*3/uL Normal <0.10 [facility] Comment on above: Order Comment: Speci men Type: BLOOD SPECIMENOrdering Facility: [facility] Address: [address] [place] [address] Performed By: #### 5 7021-8 ####[facility] ERA [id number] [place] [address] [place] Immature granulocytes/100 WBC (Bld) 0.2 % Normal [facility] Comment on above: Order Comment: Speci men Type: BLOOD SPECIMENOrdering Facility: [facility] Address: [address] [place] [address] Performed By: #### 5 7021-8 ####[facility] HOSPITALNCLIA [id number] [place] [address] [place] Lymphocytes (Bld) [#/Vol] 2.02 10*3/uL Normal 1.00-4.00 [facility] Comment on above: Order Comment: Speci men Type: BLOOD SPECIMENOrdering Facility: [facility] Address: [address] [place] [address] Performed By: #### 5 7021-8 ####[facility] SHANDRAMichaelNCLIA [id number] [place] [address] [place] Lymphocytes/100 WBC (Bld) 38.9 % Normal [facility] Comment on above: Order Comment: Speci men Type: BLOOD SPECIMENOrdering Facility: [facility] Address: [address] [place] [address] Performed By: #### 5 7021-8 ####[facility] HOSPITALPERCY [id number] [place] [address] [place] MCH (RBC) [Entitic mass] 34.6 pg High 26.0-34.0 [facility] Comment on above: Order Comment: Speci men Type: BLOOD SPECIMENOrdering Facility: [facility] Address: [address] [place] [address] Performed By: #### 5 7021-8 ####[facility] HOSPITALANA MLENIN [id number] [place] [address] [place] MCHC (RBC) [Mass/Vol] 32.7 g/dL Normal 30.5-36.0 [facility] Comment on above: Order Comment: Speci men Type: BLOOD SPECIMENOrdering Facility: [facility] Address: [address] [place] [address] Performed By: #### 5 7021-8 ####[facility] HOSPITALNCLISofie [id number] [place] [address] [place] MCV (RBC) [Entitic vol] 105.9 fL High 80.0-100.0 [facility] Comment on above: Order Comment: Speci men Type: BLOOD SPECIMENOrdering Facility: [facility] Address: [address] [place] [address] Performed By: #### 5 7021-8 ####[facility] HOSPITALNCLIA [id number] [place] [address] [place] Monocytes (Bld) [#/Vol] 0.54 10*3/uL Normal <0.87 [facility] Comment on above: Order Comment: Speci men Type: BLOOD SPECIMENOrdering Facility: [facility] Address: [address] [place] [address] Performed By: #### 5 7021-8 ####[facility] [id number] [place] [address] [place] Monocytes/100 WBC (Bld) 10.4 % Normal [facility] Comment on above: Order Comment: Speci men Type: BLOOD SPECIMENOrdering Facility: [facility] Address: [address] [place] [address] Performed By: #### 5 7021-8 ####[facility] [id number] [place] [address] [place] Neutrophils (Bld) [#/Vol] 2.43 10*3/uL Normal 1.45-7.50 [facility] Comment on above: Order Comment: Speci men Type: BLOOD SPECIMENOrdering Facility: [facility] Address: [address] [place] [address] Performed By: #### 5 7021-8 ####[facility] [id number] [place] [address] [place] Neutrophils/100 WBC (Bld) 46.8 % Normal [facility] Comment on above: Order Comment: Speci men Type: BLOOD SPECIMENOrdering Facility: [facility] Address: [address] [place] [address] Performed By: #### 5 7021-8 ####[facility] [id number] [place] [address] [place] Nucleated RBC (Bld) [#/Vol] 10*3/uL Normal <0.01 [facility] Comment on above: Order Comment: Speci men Type: BLOOD SPECIMENOrdering Facility: [facility] Address: [address] [place] [address] Performed By: #### 5 7021-8 ####[facility] TUCKER [id number] [place] [address] [place] Nucleated RBC/100 WBC (Bld) [Ratio] 0.0 /100 WBC Normal [facility] Comment on above: Order Comment: Speci men Type: BLOOD SPECIMENOrdering Facility: [facility] Address: [address] [place] [address] Performed By: #### 5 7021-8 ####[facility] SHANDRAROWENAPERCY [id number] [place] [address] [place] Platelet mean volume (Bld) [Entitic vol] 9.1 fL Normal 9.0-12.7 [facility] Comment on above: Order Comment: Speci men Type: BLOOD SPECIMENOrdering Facility: [facility] Address: [address] [place] [address] Performed By: #### 5 7021-8 ####[facility] HOSPITALPERCY [id number] [place] [address] [place] Platelets (Bld) [#/Vol] 227 10*3/uL Normal 150-400 [facility] Comment on above: Order Comment: Speci men Type: BLOOD SPECIMENOrdering Facility: [facility] Address: [address] [place] [address] Performed By: #### 5 7021-8 ####[facility] HOSPITALNCLIA [id number] [place] [address] [place] RBC (Bld) [#/Vol] 3.41 10*6/uL Low 3.90-5.20 [facility] Comment on above: Order Comment: Speci men Type: BLOOD SPECIMENOrdering Facility: [facility] Address: [address] [place] [address] Performed By: #### 5 7021-8 ####[facility] PORT ORANGEWNCLIA [id number] [place] [address] [place] WBC (Bld) [#/Vol] 5.19 10*3/uL Normal 3.70-11.00 [facility] Comment on above: Order Comment: Speci men Type: BLOOD SPECIMENOrdering Facility: [facility] Address: [address] [place] [address] Performed By: #### 5 7021-8 ####[facility] [id number] [place] [address] [place] CNOVSPon 06-22-2024 CNOVSP Normal [facility] Cancer Ag125 SerPl-aCncon Cancer Ag 125 Qn 14 [arb'U]/mL Normal <39 [facility] Comment on above: Order Comment: Speci men Type: BLOOD SPECIMENOrdering Facility: [facility] Address: [address] [place] [address] Result Comment: CA 1 25 test methodology used is the Electrochemiluminescence Immunoassay by [employer]. Results obtained with different methods or kits cannot be used interchangeably.The reference interval is based on the 95th percentile of 240 apparently healthy premenopausal and postmenopausal women. At a cutoff value of 65 U/mL, the test sensitivity to distinguish ovarian carcinoma (FIGO stage I to IV) versus benign gynecological disease is 79%, with a specificity of 82%.Reference: Cancer Antigen 125 (CA 125 II) [package insert V 1.0 [place]ish]. [employer], [place], [place] (December 2014) Performed By: #### 1 0334-1 ####[facility] LABCLIA [id number] [place] [address] [place] Comprehensive metabolic 2000 panelon 06-22-2024 Albumin [Mass/Vol] 4.2 g/dL Normal 3.9-4.9 [facility] Comment on above: Order Comment: Speci men Type: BLOOD SPECIMENOrdering Facility: [facility] Address: [address] [place] [address] Performed By: #### 2 4323-8 ####[facility] MILLTOWNCLIA [id number] [place] [address] [place] ALP [Catalytic activity/Vol] 80 U/L Normal 34-123 [facility] Comment on above: Order Comment: Speci men Type: BLOOD SPECIMENOrdering Facility: [facility] Address: [address] [place] [address] Performed By: #### 2 4323-8 ####[facility] PORT ORANGEWNCLIA [id number] [place] [address] [place] ALT [Catalytic activity/Vol] 6 U/L Low 7-38 [facility] Comment on above: Order Comment: Speci men Type: BLOOD SPECIMENOrdering Facility: [facility] Address: [address] [place] [address] Performed By: #### 2 4323-8 ####[facility] CENTERLIA [id number] [place] [address] [place] Anion gap [Moles/Vol] 11 mmol/L Normal 8-15 [facility] Comment on above: Order Comment: Speci men Type: BLOOD SPECIMENOrdering Facility: [facility] Address: [address] [place] [address] Performed By: #### 2 4323-8 ####[facility] MEDICAL CENTERLIA [id number] [place] [address] [place] AST [Catalytic activity/Vol] 12 U/L Low 13-35 [facility] Comment on above: Order Comment: Speci men Type: BLOOD SPECIMENOrdering Facility: [facility] Address: [address] [place] [address] Performed By: #### 2 4323-8 ####[facility] HOSPITALNCLIA [id number] [place] [address] [place] Bilirubin [Mass/Vol] 0.5 mg/dL Normal 0.2-1.3 [facility] Comment on above: Order Comment: Speci men Type: BLOOD SPECIMENOrdering Facility: [facility] Address: [address] [place] [address] Performed By: #### 2 4323-8 ####[facility] HOSPITALNCLIA [id number] [place] [address] [place] Calcium [Mass/Vol] 10.0 mg/dL Normal 8.5-10.2 [facility] Comment on above: Order Comment: Speci men Type: BLOOD SPECIMENOrdering Facility: [facility] Address: [address] [place] [address] Performed By: #### 2 4323-8 ####[facility] [id number] [place] [address] [place] Chloride [Moles/Vol] 106 mmol/L Normal 98-107 [facility] Comment on above: Order Comment: Speci men Type: BLOOD SPECIMENOrdering Facility: [facility] Address: [address] [place] [address] Performed By: #### 2 4323-8 ####[facility] [id number] [place] [address] [place] CO2 [Moles/Vol] 24 mmol/L Normal 22-30 [facility] Comment on above: Order Comment: Speci men Type: BLOOD SPECIMENOrdering Facility: [facility] Address: [address] [place] [address] Performed By: #### 2 4323-8 ####[facility] [id number] [place] [address] [place] Creatinine [Mass/Vol] 0.76 mg/dL Normal 0.58-0.96 [facility] Comment on above: Order Comment: Speci men Type: BLOOD SPECIMENOrdering Facility: [facility] Address: [address] [place] [address] Performed By: #### 2 4323-8 ####[facility] [id number] [place] [address] [place] Creatinine and Glomerular filtration rate.predicted panel (S/P/Bld) 80 mL/min/1.73m??? Normal >=60 [facility] Comment on above: Order Comment: Antwan rowland Type: BLOOD SPECIMENOrdering Facility: [facility] Address: [address] [place] [address] Result Comment: Rosana mated Glomerular Filtration Rate (eGFR) is calculated using the 2020 CKD-EPI creatinine equation. This equation utilizes serum creatinine, sex, and age as parameters. The creatinine assay has traceable calibration to isotope dilution-mass spectrometry. Refer to KDIGO guidelines for clinical interpretation. In patients with unstable renal function, e.g. those with acute kidney injury, the eGFR may not accurately reflect actual GFR. Performed By: #### 2 4323-8 ####[facility] [id number] [place] [address] [place] Glucose [Mass/Vol] 107 mg/dL High 74-99 [facility] Comment on above: Order Comment: Antwan rowland Type: BLOOD SPECIMENOrdering Facility: [facility] Address: [address] [place] [address] Result Comment: The [place] Diabetes Association (ADA) provides guidance for cutoff values for fasting glucose and random glucose. The ADA defines fasting as no caloric intake for at least 8 hours. Fasting plasma glucose results between 100 to 125 mg/dL indicate increased risk for diabetes (prediabetes).Fasting plasma glucose results greater than or equal to 126 mg/dL meet the criteria for diagnosis of diabetes. In the absence of unequivocal hyperglycemia, results should be confirmed by repeat testing. In a patient with classic symptoms of hyperglycemia or hyperglycemic crisis, random plasma glucose results greater than or equal to 200 mg/dL meet the criteria for diagnosis of diabetes.Reference: Standards of Medical Care in Diabetes 2016, [place] Diabetes Association. Diabetes Care. 2016.39(Suppl 1). Performed By: #### 2 4323-8 ####[facility] HOSPITALTOWNCLIA [id number] [place] [address] [place] Potassium [Moles/Vol] 4.0 mmol/L Normal 3.7-5.1 [facility] Comment on above: Order Comment: Speci men Type: BLOOD SPECIMENOrdering Facility: [facility] Address: [address] [place] [address] Performed By: #### 2 4323-8 ####[facility] MILLTOWNCLIA [id number] [place] [address] [place] Protein [Mass/Vol] 7.0 g/dL Normal 6.3-8.0 [facility] Comment on above: Order Comment: Speci men Type: BLOOD SPECIMENOrdering Facility: [facility] Address: [address] [place] [address] Performed By: #### 2 4323-8 ####[facility] PORT ORANGEWNCLIA [id number] [place] [address] [place] Sodium [Moles/Vol] 141 mmol/L Normal 136-144 [facility] Comment on above: Order Comment: Speci men Type: BLOOD SPECIMENOrdering Facility: [facility] Address: [address] [place] [address] Performed By: #### 2 4323-8 ####[facility] ORANGEWNCLIA [id number] [place] [address] [place] Urea nitrogen [Mass/Vol] 19 mg/dL Normal 7-21 [facility] Comment on above: Order Comment: Speci men Type: BLOOD SPECIMENOrdering Facility: [facility] Address: [address] [place] [address] Performed By: #### 2 4323-8 ####[facility] MILLWNCLIA [id number] [place] [address] [place] MRI FEMALE PELVIS WO/W IVCON on 06-14-2024 MRI FEMALE PELVIS WO/W IVCON Normal [facility] CNOVon 06-08-2024 CNOV Normal [facility] CBC W Auto Differential pane l (Bld)on 06-04-2024 Basophils (Bld) [#/Vol] 10*3/uL Normal <0.11 [facility] Comment on above: Order Comment: Speci men Type: BLOOD SPECIMENOrdering Facility: [facility] Address: [address] [place] [address] Performed By: #### 5 7021-8 ####[facility] [id number] [place] [address] [place] Basophils/100 WBC (Bld) 0.4 % Normal [facility] Comment on above: Order Comment: Speci men Type: BLOOD SPECIMENOrdering Facility: [facility] Address: [address] [place] [address] Performed By: #### 5 7021-8 ####[facility] [id number] [place] [address] [place] Differential cell count method Nom (Bld) Auto Normal [facility] Comment on above: Order Comment: Speci men Type: BLOOD SPECIMENOrdering Facility: [facility] Address: [address] [place] [address] Performed By: #### 5 7021-8 ####[facility] [id number] [place] [address] [place] Eosinophils (Bld) [#/Vol] 0.14 10*3/uL Normal <0.46 [facility] Comment on above: Order Comment: Speci men Type: BLOOD SPECIMENOrdering Facility: [facility] Address: [address] [place] [address] Performed By: #### 5 7021-8 ####[facility] [id number] [place] [address] [place] Eosinophils/100 WBC (Bld) 2.5 % Normal [facility] Comment on above: Order Comment: Speci men Type: BLOOD SPECIMENOrdering Facility: [facility] Address: [address] [place] [address] Performed By: #### 5 7021-8 ####[facility] [id number] [place] [address] [place] Erythrocyte distribution width (RBC) [Ratio] 17.3 % High 11.5-15.0 [facility] Comment on above: Order Comment: Speci men Type: BLOOD SPECIMENOrdering Facility: [facility] Address: [address] [place] [address] Performed By: #### 5 7021-8 ####[facility] [id number] [place] [address] [place] Hematocrit (Bld) [Volume fraction] 34.3 % Low 36.0-46.0 [facility] Comment on above: Order Comment: Speci men Type: BLOOD SPECIMENOrdering Facility: [facility] Address: [address] [place] [address] Performed By: #### 5 7021-8 ####[facility] [id number] [place] [address] [place] Hemoglobin (Bld) [Mass/Vol] 11.4 g/dL Low 11.5-15.5 [facility] Comment on above: Order Comment: Speci men Type: BLOOD SPECIMENOrdering Facility: [facility] Address: [address] [place] [address] Performed By: #### 5 7021-8 ####[facility] [id number] [place] [address] [place] Immature granulocytes (Bld) [#/Vol] 10*3/uL Normal <0.10 [facility] Comment on above: Order Comment: Speci men Type: BLOOD SPECIMENOrdering Facility: [facility] Address: [address] [place] [address] Performed By: #### 5 7021-8 ####[facility] MILLWNCLIA [id number] [place] [address] [place] Immature granulocytes/100 WBC (Bld) 0.4 % Normal [facility] Comment on above: Order Comment: Speci men Type: BLOOD SPECIMENOrdering Facility: [facility] Address: [address] [place] [address] Performed By: #### 5 7021-8 ####[facility] HOSPITALNCLIA [id number] [place] [address] [place] Lymphocytes (Bld) [#/Vol] 2.08 10*3/uL Normal 1.00-4.00 [facility] Comment on above: Order Comment: Speci men Type: BLOOD SPECIMENOrdering Facility: [facility] Address: [address] [place] [address] Performed By: #### 5 7021-8 ####[facility] CENTERLIA [id number] [place] [address] [place] Lymphocytes/100 WBC (Bld) 36.6 % Normal [facility] Comment on above: Order Comment: Speci men Type: BLOOD SPECIMENOrdering Facility: [facility] Address: [address] [place] [address] Performed By: #### 5 7021-8 ####[facility] CENTERLIA [id number] [place] [address] [place] MCH (RBC) [Entitic mass] 34.9 pg High 26.0-34.0 [facility] Comment on above: Order Comment: Speci men Type: BLOOD SPECIMENOrdering Facility: [facility] Address: [address] [place] [address] Performed By: #### 5 7021-8 ####[facility] CENTERLIA [id number] [place] [address] [place] MCHC (RBC) [Mass/Vol] 33.2 g/dL Normal 30.5-36.0 [facility] Comment on above: Order Comment: Speci men Type: BLOOD SPECIMENOrdering Facility: [facility] Address: [address] [place] [address] Performed By: #### 5 7021-8 ####[facility] [id number] [place] [address] [place] MCV (RBC) [Entitic vol] 104.9 fL High 80.0-100.0 [facility] Comment on above: Order Comment: Speci men Type: BLOOD SPECIMENOrdering Facility: [facility] Address: [address] [place] [address] Performed By: #### 5 7021-8 ####[facility] [id number] [place] [address] [place] Monocytes (Bld) [#/Vol] 0.61 10*3/uL Normal <0.87 [facility] Comment on above: Order Comment: Speci men Type: BLOOD SPECIMENOrdering Facility: [facility] Address: [address] [place] [address] Performed By: #### 5 7021-8 ####[facility] [id number] [place] [address] [place] Monocytes/100 WBC (Bld) 10.7 % Normal [facility] Comment on above: Order Comment: Speci men Type: BLOOD SPECIMENOrdering Facility: [facility] Address: [address] [place] [address] Performed By: #### 5 7021-8 ####[facility] [id number] [place] [address] [place] Neutrophils (Bld) [#/Vol] 2.82 10*3/uL Normal 1.45-7.50 [facility] Comment on above: Order Comment: Speci men Type: BLOOD SPECIMENOrdering Facility: [facility] Address: [address] [place] [address] Performed By: #### 5 7021-8 ####[facility]ITALNCLAKEVIEW [facility] [id number] [place] [address] [place] ASHA Neutrophils/100 WBC (Bld) 49.4 % Normal [facility] Comment on above: Order Comment: Speci men Type: BLOOD SPECIMENOrdering Facility: [facility] Address: [address] [place] [address] Performed By: #### 5 7021-8 ####[facility]ITALNCLAKEVIEW [facility] [id number] [place] [address] [place] Nucleated RBC (Bld) [#/Vol] 10*3/uL Normal <0.01 [facility] Comment on above: Order Comment: Speci men Type: BLOOD SPECIMENOrdering Facility: [facility] Address: [address] [place] [address] Performed By: #### 5 7021-8 ####[facility]PITALNCLAKEVIEW [facility] [id number] [place] [address] [place] Nucleated RBC/100 WBC (Bld) [Ratio] 0.0 /100 WBC Normal [facility] Comment on above: Order Comment: Speci men Type: BLOOD SPECIMENOrdering Facility: [facility] Address: [address] [place] [address] Performed By: #### 5 7021-8 ####[facility]ITALNCLAKE[facility] [id number] [place] [address] [place] Platelet mean volume (Bld) [Entitic vol] 9.3 fL Normal 9.0-12.7 [facility] Comment on above: Order Comment: Speci men Type: BLOOD SPECIMENOrdering Facility: [facility] Address: [address] [place] [address] Performed By: #### 5 7021-8 ####[facility] LUCIONCLENINA [id number] [place] [address] [place] Platelets (Bld) [#/Vol] 243 10*3/uL Normal 150-400 [facility] Comment on above: Order Comment: Speci men Type: BLOOD SPECIMENOrdering Facility: [facility] Address: [address] [place] [address] Performed By: #### 5 7021-8 ####[facility] SHANDRAROWENANCLIA [id number] [place] [address] [place] RBC (Bld) [#/Vol] 3.27 10*6/uL Low 3.90-5.20 [facility] Comment on above: Order Comment: Speci men Type: BLOOD SPECIMENOrdering Facility: [facility] Address: [address] [place] [address] Performed By: #### 5 7021-8 ####[facility] HOSPITALNCA [id number] [place] [address] [place] WBC (Bld) [#/Vol] 5.69 10*3/uL Normal 3.70-11.00 [facility] Comment on above: Order Comment: Speci men Type: BLOOD SPECIMENOrdering Facility: [facility] Address: [address] [place] [address] Performed By: #### 5 7021-8 ####[facility] HOSPITALNCLIA [id number] [place] [address] [place] CNOVSPon 06-04-2024 CNOVSP Normal [facility] Comprehensive metabolic 2000 panelon 06-04-2024 Albumin [Mass/Vol] 4.3 g/dL Normal 3.9-4.9 [facility] Comment on above: Order Comment: Speci men Type: BLOOD SPECIMENOrdering Facility: [facility] Address: [address] [place] [address] Performed By: #### 2 4323-8 ####[facility] MILLTOWNCLIA [id number] [place] [address] [place] ALP [Catalytic activity/Vol] 80 U/L Normal 34-123 [facility] Comment on above: Order Comment: Speci men Type: BLOOD SPECIMENOrdering Facility: [facility] Address: [address] [place] [address] Performed By: #### 2 4323-8 ####[facility] PORT ORANGEWNCLIA [id number] [place] [address] [place] ALT [Catalytic activity/Vol] 5 U/L Low 7-38 [facility] Comment on above: Order Comment: Speci men Type: BLOOD SPECIMENOrdering Facility: [facility] Address: [address] [place] [address] Performed By: #### 2 4323-8 ####[facility] HOSPITALNCLIA [id number] [place] [address] [place] Anion gap [Moles/Vol] 8 mmol/L Normal 8-15 [facility] Comment on above: Order Comment: Speci men Type: BLOOD SPECIMENOrdering Facility: [facility] Address: [address] [place] [address] Performed By: #### 2 4323-8 ####[facility] MILLTOWNCLIA [id number] [place] [address] [place] AST [Catalytic activity/Vol] 13 U/L Normal 13-35 [facility] Comment on above: Order Comment: Speci men Type: BLOOD SPECIMENOrdering Facility: [facility] Address: [address] [place] [address] Performed By: #### 2 4323-8 ####[facility] PORT ORANGEWNCLIA [id number] [place] [address] [place] Bilirubin [Mass/Vol] 0.4 mg/dL Normal 0.2-1.3 [facility] Comment on above: Order Comment: Speci men Type: BLOOD SPECIMENOrdering Facility: [facility] Address: [address] [place] [address] Performed By: #### 2 4323-8 ####[facility] MILLTOWNCLIA [id number] [place] [address] [place] Calcium [Mass/Vol] 10.1 mg/dL Normal 8.5-10.2 [facility] Comment on above: Order Comment: Speci men Type: BLOOD SPECIMENOrdering Facility: [facility] Address: [address] [place] [address] Performed By: #### 2 4323-8 ####[facility] MILLTOWNCLIA [id number] [place] [address] [place] Chloride [Moles/Vol] 105 mmol/L Normal 98-107 [facility] Comment on above: Order Comment: Speci men Type: BLOOD SPECIMENOrdering Facility: [facility] Address: [address] [place] [address] Performed By: #### 2 4323-8 ####[facility] MILLTOWNCLIA [id number] [place] [address] [place] CO2 [Moles/Vol] 26 mmol/L Normal 22-30 [facility] Comment on above: Order Comment: Speci men Type: BLOOD SPECIMENOrdering Facility: [facility] Address: [address] [place], [place] [address] Performed By: #### 2 4323-8 ####[facility] MILLTOWNCLIA [id number] [place] [address] [place] Creatinine [Mass/Vol] 0.75 mg/dL Normal 0.58-0.96 [facility] Comment on above: Order Comment: Speci men Type: BLOOD SPECIMENOrdering Facility: [facility] Address: [address] [place] [address] Performed By: #### 2 4323-8 ####[facility] [id number] [place] [address] [place] Creatinine and Glomerular filtration rate.predicted panel (S/P/Bld) 81 mL/min/1.73m??? Normal >=60 [facility] Comment on above: Order Comment: Antwan rowland Type: BLOOD SPECIMENOrdering Facility: [facility] Address: [address] [place] [address] Result Comment: Rosana mated Glomerular Filtration Rate (eGFR) is calculated using the 2020 CKD-EPI creatinine equation. This equation utilizes serum creatinine, sex, and age as parameters. The creatinine assay has traceable calibration to isotope dilution-mass spectrometry. Refer to KDIGO guidelines for clinical interpretation. In patients with unstable renal function, e.g. those with acute kidney injury, the eGFR may not accurately reflect actual GFR. Performed By: #### 2 4323-8 ####[facility] [id number] [place] [address] [place] Glucose [Mass/Vol] 100 mg/dL High 74-99 [facility] Comment on above: Order Comment: Antwan rowland Type: BLOOD SPECIMENOrdering Facility: [facility] Address: [address] [place] [address] Result Comment: The [place] Diabetes Association (ADA) provides guidance for cutoff values for fasting glucose and random glucose. The ADA defines fasting as no caloric intake for at least 8 hours. Fasting plasma glucose results between 100 to 125 mg/dL indicate increased risk for diabetes (prediabetes).Fasting plasma glucose results greater than or equal to 126 mg/dL meet the criteria for diagnosis of diabetes. In the absence of unequivocal hyperglycemia, results should be confirmed by repeat testing. In a patient with classic symptoms of hyperglycemia or hyperglycemic crisis, random plasma glucose results greater than or equal to 200 mg/dL meet the criteria for diagnosis of diabetes.Reference: Standards of Medical Care in Diabetes 2016, [place] Diabetes Association. Diabetes Care. 2016.39(Suppl 1). Performed By: #### 2 4323-8 ####[facility] MILLTOWNCLIA [id number] [place] [address] [place] Potassium [Moles/Vol] 4.4 mmol/L Normal 3.7-5.1 [facility] Comment on above: Order Comment: Speci men Type: BLOOD SPECIMENOrdering Facility: [facility] Address: [address] [place] [address] Performed By: #### 2 4323-8 ####[facility] MILLTOWNCLIA [id number] [place] [address] [place] Protein [Mass/Vol] 7.0 g/dL Normal 6.3-8.0 [facility] Comment on above: Order Comment: Speci men Type: BLOOD SPECIMENOrdering Facility: [facility] Address: [address] [place] [address] Performed By: #### 2 4323-8 ####[facility]ANGEWANA MLIA [id number] [place] [address] [place] Sodium [Moles/Vol] 139 mmol/L Normal 136-144 [facility] Comment on above: Order Comment: Speci men Type: BLOOD SPECIMENOrdering Facility: [facility] Address: [address] [place] [address] Performed By: #### 2 4323-8 ####[facility] MILLTOWNCLIA [id number] [place] [address] [place] Urea nitrogen [Mass/Vol] 18 mg/dL Normal 7-21 [facility] Comment on above: Order Comment: Speci men Type: BLOOD SPECIMENOrdering Facility: [facility] Address: [address] [place] [address] Performed By: #### 2 4323-8 ####[facility] MILLWNCLIA [id number] [place] [address] [facility] Bone density reportOrdered B y: Martin James on 06-02-2024 Study report Skeletal system DXA [facility] Imaging Services [address] [place] [address] Dexa Bone Density Study MR#: [id number] Acct: [id number] Name: MARIE BLAIR Rep #: [id number] : 1945 F 79 From: Larry James MD PCP: Dr. Joe Muller MD Status: REG CL I Study:Dexa Bone Density Study Date of Exam: 06/02/24 Exam# [id number] Ordering Dr: Moni Muller MD PROCEDURE: DEXA BONE DENSITY STUDY REASON FOR EXAM: F, age 79 y/o . Postmenopausal. TECHNIQUE: DEXA scan of the lumbar spine and both hips. COMPARISON: None. FINDINGS: Lumbar Spine (L1-L4): g/cm2 (1.146)/T-score (0.8)/Z-score (3.5) findings are suggestive of normal with a low fracture risk. Left Femur Total: g/cm2 (0.879)/T-score (-0.5)/Z-score (1.5) Left Femoral Neck: g/cm2 (0.742)/T-score (-1.0)/Z-score (1.3) Right Femur Total: g/cm2 (0.933)/T-score (-0.1)/Z-score (1.9) Right Femoral Neck: g/cm2 (0.753)/T-score (-0.9)/Z-score (1.4) BD/Dexa Bone Density Study IMPRESSION: The patient is considered normal as outlined below according to World Farshad Organization (WHO) criteria with a low fracture risk. Reading Location: [id number] CC: Dr. Joe Muller MD ~ Program Developer: Signed [facility] Dexa Bone Density Studyon Dexa Bone Density Study [facility] Imaging Services [address] [address] Dexa Bone Density Study MR#: [id number] Acct: [id number] Name: MARIE BLAIR Rep #: [id number] : 1945 F 79 From: Martin watters MD PCP: Dr. Joe Muller MD Status: REG CLI Study: Dexa Bone Density Study Date of Exam: 06/02/24 Exam# [id number] Ordering Dr: Joe Muller MD PROCEDURE: DEXA BONE DENSITY STUDY REASON FOR EXAM: F, age 79 y/o . Postmenopausal. TECHNIQUE: DEXA scan of the lumbar spine and both hips. COMPARISON: None. FINDINGS: Lumbar Spine (L1-L4): g/cm2 (1.146)/T-score (0.8)/Z-score (3.5) findings are suggestive of normal with a low fracture risk. Left Femur Total: g/cm2 (0.879)/T-score (-0.5)/Z-score (1.5) Left Femoral Neck: g/cm2 (0.742)/T-score (-1.0)/Z-score (1.3) Right Femur Total: g/cm2 (0.933)/T-score (-0.1)/Z-score (1.9) Right Femoral Neck: g/cm2 (0.753)/T-score (-0.9)/Z-score (1.4) BD/Dexa Bone Density Study IMPRESSION: The patient is considered normal as outlined below according to World Farshad Organization (WHO) criteria with a low fracture risk. Reading Location: [id number] CC: Dr. Joe Muller MD Program Developer: Signed Normal [facility] CBC W Auto Differential pane l (Bld)on 05-14-2024 Basophils (Bld) [#/Vol] 10*3/uL Normal <0.11 [facility] Comment on above: Order Comment: Speci men Type: BLOOD SPECIMENOrdering Facility: [facility] Address: [address] [place] [address] [place] [address] Performed By: #### 5 7021-8 ####[facility] MILLWNCLIA [id number] [place] [address] [place] Basophils/100 WBC (Bld) 0.3 % Normal [facility] Comment on above: Order Comment: Speci men Type: BLOOD SPECIMENOrdering Facility: [facility] Address: [address] [place] [address] Performed By: #### 5 7021-8 ####[facility] CENTERLIA [id number] [place] [address] [place] Differential cell count method Nom (Bld) Auto Normal [facility] Comment on above: Order Comment: Speci men Type: BLOOD SPECIMENOrdering Facility: [facility] Address: [address] [place] [address] Performed By: #### 5 7021-8 ####[facility] CENTERLIA [id number] [place] [address] [place] Eosinophils (Bld) [#/Vol] 0.13 10*3/uL Normal <0.46 [facility] Comment on above: Order Comment: Speci men Type: BLOOD SPECIMENOrdering Facility: [facility] Address: [address] [place] [address] Performed By: #### 5 7021-8 ####[facility] CENTERLIA [id number] [place] [address] [place] Eosinophils/100 WBC (Bld) 2.2 % Normal [facility] Comment on above: Order Comment: Speci men Type: BLOOD SPECIMENOrdering Facility: [facility] Address: [address] [place] [address] Performed By: #### 5 7021-8 ####[facility] HOSPITALNCLIA [id number] [place] [address] [place] Erythrocyte distribution width (RBC) [Ratio] 19.4 % High 11.5-15.0 [facility] Comment on above: Order Comment: Speci men Type: BLOOD SPECIMENOrdering Facility: [facility] Address: [address] [place] [address] Performed By: #### 5 7021-8 ####[facility]ITALNCLAKEVIEW [facility] [id number] [place] [address] [place] Hematocrit (Bld) [Volume fraction] 33.0 % Low 36.0-46.0 [facility] Comment on above: Order Comment: Speci men Type: BLOOD SPECIMENOrdering Facility: [facility] Address: [address] [place] [address] Performed By: #### 5 7021-8 ####[facility]ITALNCLA[facility] [id number] [place] [address] [place] Hemoglobin (Bld) [Mass/Vol] 10.7 g/dL Low 11.5-15.5 [facility] Comment on above: Order Comment: Speci men Type: BLOOD SPECIMENOrdering Facility: [facility] Address: [address] [place] [address] Performed By: #### 5 7021-8 ####[facility] [id number] [place] [address] [place] Immature granulocytes (Bld) [#/Vol] 10*3/uL Normal <0.10 [facility] Comment on above: Order Comment: Speci men Type: BLOOD SPECIMENOrdering Facility: [facility] Address: [address] [place] [address] Performed By: #### 5 7021-8 ####[facility] CENTERLI [id number] [place] [address] [place] Immature granulocytes/100 WBC (Bld) 0.2 % Normal [facility] Comment on above: Order Comment: Speci men Type: BLOOD SPECIMENOrdering Facility: [facility] Address: [address] [place] [address] Performed By: #### 5 7021-8 ####[facility] SHANDRAHAIA [id number] [place] [address] [place] Lymphocytes (Bld) [#/Vol] 2.20 10*3/uL Normal 1.00-4.00 [facility] Comment on above: Order Comment: Speci men Type: BLOOD SPECIMENOrdering Facility: [facility] Address: [address] [place] [address] Performed By: #### 5 7021-8 ####[facility] [id number] [place] [address] [place] Lymphocytes/100 WBC (Bld) 37.7 % Normal [facility] Comment on above: Order Comment: Speci men Type: BLOOD SPECIMENOrdering Facility: [facility] Address: [address] [place] [address] Performed By: #### 5 7021-8 ####[facility] CENTERLENINA [id number] [place] [address] [place] MCH (RBC) [Entitic mass] 33.6 pg Normal 26.0-34.0 [facility] Comment on above: Order Comment: Speci men Type: BLOOD SPECIMENOrdering Facility: [facility] Address: [address] [place] [address] Performed By: #### 5 7021-8 ####[facility] HOSPITALNCLIA [id number] [place] [address] [place] MCHC (RBC) [Mass/Vol] 32.4 g/dL Normal 30.5-36.0 [facility] Comment on above: Order Comment: Speci men Type: BLOOD SPECIMENOrdering Facility: [facility] Address: [address] [place] [address] Performed By: #### 5 7021-8 ####[facility] SHANDRAFRANCISCAN HEALTH MOORESVILLELIA [id number] [place] [address] [place] MCV (RBC) [Entitic vol] 103.8 fL High 80.0-100.0 [facility] Comment on above: Order Comment: Speci men Type: BLOOD SPECIMENOrdering Facility: [facility] Address: [address] [place] [address] Performed By: #### 5 7021-8 ####[facility] [id number] [place] [address] [place] Monocytes (Bld) [#/Vol] 0.61 10*3/uL Normal <0.87 [facility] Comment on above: Order Comment: Speci men Type: BLOOD SPECIMENOrdering Facility: [facility] Address: [address] [place] [address] Performed By: #### 5 7021-8 ####[facility] [id number] [place] [address] [place] Monocytes/100 WBC (Bld) 10.5 % Normal [facility] Comment on above: Order Comment: Speci men Type: BLOOD SPECIMENOrdering Facility: [facility] Address: [address] [place] [address] Performed By: #### 5 7021-8 ####[facility] [id number] [place] [address] [place] Neutrophils (Bld) [#/Vol] 2.86 10*3/uL Normal 1.45-7.50 [facility] Comment on above: Order Comment: Speci men Type: BLOOD SPECIMENOrdering Facility: [facility] Address: [address] [place] [address] Performed By: #### 5 7021-8 ####[facility] CENTERLIA [id number] [place] [address] [place] Neutrophils/100 WBC (Bld) 49.1 % Normal [facility] Comment on above: Order Comment: Speci men Type: BLOOD SPECIMENOrdering Facility: [facility] Address: [address] [place] [address] Performed By: #### 5 7021-8 ####[facility] [id number] [place] [address] [place] Nucleated RBC (Bld) [#/Vol] 10*3/uL Normal <0.01 [facility] Comment on above: Order Comment: Speci men Type: BLOOD SPECIMENOrdering Facility: [facility] Address: [address] [place] [address] Performed By: #### 5 7021-8 ####[facility] [id number] [place] [address] [place] Nucleated RBC/100 WBC (Bld) [Ratio] 0.0 /100 WBC Normal [facility] Comment on above: Order Comment: Speci men Type: BLOOD SPECIMENOrdering Facility: [facility] Address: [address] [place] [address] Performed By: #### 5 7021-8 ####[facility] [id number] [place] [address] [place] Platelet mean volume (Bld) [Entitic vol] 9.2 fL Normal 9.0-12.7 [facility] Comment on above: Order Comment: Speci men Type: BLOOD SPECIMENOrdering Facility: [facility] Address: [address] [place] [address] Performed By: #### 5 7021-8 ####[facility] [id number] [place] [address] [place] Platelets (Bld) [#/Vol] 230 10*3/uL Normal 150-400 [facility] Comment on above: Order Comment: Speci men Type: BLOOD SPECIMENOrdering Facility: [facility] Address: [address] [place] [address] Performed By: #### 5 7021-8 ####[facility] ALISSAA [id number] [place] [address] [place] RBC (Bld) [#/Vol] 3.18 10*6/uL Low 3.90-5.20 [facility] Comment on above: Order Comment: Speci men Type: BLOOD SPECIMENOrdering Facility: [facility] Address: [address] [place] [address] Performed By: #### 5 7021-8 ####[facility] LUCIONCLENINA [id number] [place] [address] [place] WBC (Bld) [#/Vol] 5.83 10*3/uL Normal 3.70-11.00 [facility] Comment on above: Order Comment: Speci men Type: BLOOD SPECIMENOrdering Facility: [facility] Address: [address] [place] [address] Performed By: #### 5 7021-8 ####[facility] SHANDRAROWENAANA MLENINA [id number] [place] [address] [place] CNOVSPon 05-14-2024 CNOVSP Normal [facility] Comprehensive metabolic 2000 panelon 05-14-2024 Albumin [Mass/Vol] 4.2 g/dL Normal 3.9-4.9 [facility] Comment on above: Order Comment: Speci men Type: BLOOD SPECIMENOrdering Facility: [facility] Address: [address] [place] [address] Performed By: #### 2 4323-8 ####[facility] HOSPITALNCLIA [id number] [place] [address] [place] ALP [Catalytic activity/Vol] 83 U/L Normal 34-123 [facility] Comment on above: Order Comment: Speci men Type: BLOOD SPECIMENOrdering Facility: [facility] Address: [address] [place] [address] Performed By: #### 2 4323-8 ####[facility] MILLWNCLIA [id number] [place] [address] [place] ALT [Catalytic activity/Vol] U/L Low 7-38 [facility] Comment on above: Order Comment: Speci men Type: BLOOD SPECIMENOrdering Facility: [facility] Address: [address] [place] [address] Performed By: #### 2 4323-8 ####[facility] HOSPITALNCLIA [id number] [place] [address] [place] Anion gap [Moles/Vol] 8 mmol/L Normal 8-15 [facility] Comment on above: Order Comment: Speci men Type: BLOOD SPECIMENOrdering Facility: [facility] Address: [address] [place] [address] Performed By: #### 2 4323-8 ####[facility] HOSPITALNCLIA [id number] [place] [address] [place] AST [Catalytic activity/Vol] 11 U/L Low 13-35 [facility] Comment on above: Order Comment: Speci men Type: BLOOD SPECIMENOrdering Facility: [facility] Address: [address] [place] [address] Performed By: #### 2 4323-8 ####[facility] PORT ORANGEWNCLIA [id number] [place] [address] [place] Bilirubin [Mass/Vol] 0.4 mg/dL Normal 0.2-1.3 [facility] Comment on above: Order Comment: Speci men Type: BLOOD SPECIMENOrdering Facility: [facility] Address: [address] [place] [address] Performed By: #### 2 4323-8 ####[facility] HOSPITALNCLIA [id number] [place] [address] [place] Calcium [Mass/Vol] 10.2 mg/dL Normal 8.5-10.2 [facility] Comment on above: Order Comment: Speci men Type: BLOOD SPECIMENOrdering Facility: [facility] Address: [address] [place] [address] Performed By: #### 2 4323-8 ####[facility] ORANGEWANA MLIA [id number] [place] [address] [place] Chloride [Moles/Vol] 108 mmol/L High 98-107 [facility] Comment on above: Order Comment: Speci men Type: BLOOD SPECIMENOrdering Facility: [facility] Address: [address] [place] [address] Performed By: #### 2 4323-8 ####[facility] CENTERLIA [id number] [place] [address] [place] CO2 [Moles/Vol] 26 mmol/L Normal 22-30 [facility] Comment on above: Order Comment: Speci men Type: BLOOD SPECIMENOrdering Facility: [facility] Address: [address] [place] [address] Performed By: #### 2 4323-8 ####[facility] MED[facility] CENTERLIA [id number] [place] [address] [place] Creatinine [Mass/Vol] 0.85 mg/dL Normal 0.58-0.96 [facility] Comment on above: Order Comment: Speci men Type: BLOOD SPECIMENOrdering Facility: [facility] Address: [address] [place] [address] Performed By: #### 2 4323-8 ####[facility] MED[facility] CENTERLIA [id number] [place] [address] [place] Creatinine and Glomerular filtration rate.predicted panel (S/P/Bld) 70 mL/min/1.73m??? Normal >=60 [facility] Comment on above: Order Comment: Antwan rowland Type: BLOOD SPECIMENOrdering Facility: [facility] Address: [address] [place] [address] Result Comment: Rosana mated Glomerular Filtration Rate (eGFR) is calculated using the 2020 CKD-EPI creatinine equation. This equation utilizes serum creatinine, sex, and age as parameters. The creatinine assay has traceable calibration to isotope dilution-mass spectrometry. Refer to KDIGO guidelines for clinical interpretation. In patients with unstable renal function, e.g. those with acute kidney injury, the eGFR may not accurately reflect actual GFR. Performed By: #### 2 4323-8 ####[facility] [id number] [place] [address] [place] Glucose [Mass/Vol] 83 mg/dL Normal 74-99 [facility] Comment on above: Order Comment: Antwan rowland Type: BLOOD SPECIMENOrdering Facility: [facility] Address: [address] [place] [address] Result Comment: The [place] Diabetes Association (ADA) provides guidance for cutoff values for fasting glucose and random glucose. The ADA defines fasting as no caloric intake for at least 8 hours. Fasting plasma glucose results between 100 to 125 mg/dL indicate increased risk for diabetes (prediabetes).Fasting plasma glucose results greater than or equal to 126 mg/dL meet the criteria for diagnosis of diabetes. In the absence of unequivocal hyperglycemia, results should be confirmed by repeat testing. In a patient with classic symptoms of hyperglycemia or hyperglycemic crisis, random plasma glucose results greater than or equal to 200 mg/dL meet the criteria for diagnosis of diabetes.Reference: Standards of Medical Care in Diabetes 2016, [place] Diabetes Association. Diabetes Care. 2016.39(Suppl 1). Performed By: #### 2 4323-8 ####[facility] [id number] [place] [address] [place] Potassium [Moles/Vol] 3.9 mmol/L Normal 3.7-5.1 [facility] Comment on above: Order Comment: Antwan rowland Type: BLOOD SPECIMENOrdering Facility: [facility] Address: [address] [id number] Performed By: #### 2 4323-8 ####[facility] MILLTOWNCLIA [id number] [place] [address] [place] Protein [Mass/Vol] 6.9 g/dL Normal 6.3-8.0 [facility] Comment on above: Order Comment: Speci men Type: BLOOD SPECIMENOrdering Facility: [facility] Address: [address] [place] [address] Performed By: #### 2 4323-8 ####[facility] HOSPITALNCLIA [id number] [place] [address] [place] Sodium [Moles/Vol] 142 mmol/L Normal 136-144 [facility] Comment on above: Order Comment: Speci men Type: BLOOD SPECIMENOrdering Facility: [facility] Address: [address] [place] [address] Performed By: #### 2 4323-8 ####[facility] ORANGEWNCLIA [id number] [place] [address] [place] Urea nitrogen [Mass/Vol] 20 mg/dL Normal 7-21 [facility] Comment on above: Order Comment: Speci men Type: BLOOD SPECIMENOrdering Facility: [facility] Address: [address] [place] [address] Performed By: #### 2 4323-8 ####[facility] MILLWNCLIA [id number] [place] [address] [place] CNPNon 04-26-2024 CNPN Normal [facility] FEMALE PELVIS TRANSABD LT Don 04-26-2024 US FEMALE PELVIS TRANSABD LTD Normal [facility] FEMALE PELVIS TRANSVAGon 04-26-2024 FEMALE PELVIS TRANSVAG Normal [facility] CBC W Auto Differential pane l (Bld)on 2024 Basophils (Bld) [#/Vol] 0.03 10*3/uL Normal <0.11 [facility] Comment on above: Order Comment: Speci men Type: BLOOD SPECIMENOrdering Facility: [facility] Address: [address] [place] [address] Performed By: #### 5 7021-8 ####[facility] SHANDRANATHANLIA [id number] [place] [address] [place] Basophils/100 WBC (Bld) 0.4 % Normal [facility] Comment on above: Order Comment: Speci men Type: BLOOD SPECIMENOrdering Facility: [facility] Address: [address] [place] [address] Performed By: #### 5 7021-8 ####[facility] HOSPITALANA MA [id number] [place] [address] [place] Differential cell count method Nom (Bld) Auto Normal [facility] Comment on above: Order Comment: Speci men Type: BLOOD SPECIMENOrdering Facility: [facility] Address: [address] [place] [address] Performed By: #### 5 7021-8 ####[facility] ERA [id number] [place] [address] [place] Eosinophils (Bld) [#/Vol] 0.13 10*3/uL Normal <0.46 [facility] Comment on above: Order Comment: Speci men Type: BLOOD SPECIMENOrdering Facility: [facility] Address: [address] [place] [address] Performed By: #### 5 7021-8 ####[facility] MILLWNCLIA [id number] [place] [address] [place] Eosinophils/100 WBC (Bld) 1.8 % Normal [facility] Comment on above: Order Comment: Speci men Type: BLOOD SPECIMENOrdering Facility: [facility] Address: [address] [place] [address] Performed By: #### 5 7021-8 ####[facility] SHANDRAROWENANCLENINA [id number] [place] [address] [place] Erythrocyte distribution width (RBC) [Ratio] 21.1 % High 11.5-15.0 [facility] Comment on above: Order Comment: Speci men Type: BLOOD SPECIMENOrdering Facility: [facility] Address: [address] [place] [address] Performed By: #### 5 7021-8 ####[facility] [id number] [place] [address] [place] Hematocrit (Bld) [Volume fraction] 31.8 % Low 36.0-46.0 [facility] Comment on above: Order Comment: Speci men Type: BLOOD SPECIMENOrdering Facility: [facility] Address: [address] [place] [address] Performed By: #### 5 7021-8 ####[facility] [id number] [place] [address] [place] Hemoglobin (Bld) [Mass/Vol] 10.5 g/dL Low 11.5-15.5 [facility] Comment on above: Order Comment: Speci men Type: BLOOD SPECIMENOrdering Facility: [facility] Address: [address] [place] [address] Performed By: #### 5 7021-8 ####[facility] [id number] [place] [address] [place] Immature granulocytes (Bld) [#/Vol] 0.09 10*3/uL Normal <0.10 [facility] Comment on above: Order Comment: Speci men Type: BLOOD SPECIMENOrdering Facility: [facility] Address: [address] [place] [address] Performed By: #### 5 7021-8 ####[facility] HOSPITALNCLIA [id number] [place] [address] [place] Immature granulocytes/100 WBC (Bld) 1.2 % Normal [facility] Comment on above: Order Comment: Speci men Type: BLOOD SPECIMENOrdering Facility: [facility] Address: [address] [place] [address] Performed By: #### 5 7021-8 ####[facility] HOSPITALNCLIA [id number] [place] [address] [place] Lymphocytes (Bld) [#/Vol] 2.20 10*3/uL Normal 1.00-4.00 [facility] Comment on above: Order Comment: Speci men Type: BLOOD SPECIMENOrdering Facility: [facility] Address: [address] [place] [address] Performed By: #### 5 7021-8 ####[facility] [id number] [place] [address] [place] Lymphocytes/100 WBC (Bld) 30.3 % Normal [facility] Comment on above: Order Comment: Speci men Type: BLOOD SPECIMENOrdering Facility: [facility] Address: [address] [place] [address] Performed By: #### 5 7021-8 ####[facility] HOSPITALNCLI [id number] [place] [address] [place] MCH (RBC) [Entitic mass] 33.2 pg Normal 26.0-34.0 [facility] Comment on above: Order Comment: Speci men Type: BLOOD SPECIMENOrdering Facility: [facility] Address: [address] [place], [place] [id number] Performed By: #### 5 7021-8 ####[facility] HOSPITALNCLAKEVIEW HOS[facility]ITAL [id number] [place] [address] [place] MCHC (RBC) [Mass/Vol] 33.0 g/dL Normal 30.5-36.0 [facility] Comment on above: Order Comment: Speci men Type: BLOOD SPECIMENOrdering Facility: [facility] Address: [address] [place] [address] Performed By: #### 5 7021-8 ####[facility] HOSPITALPERCY [id number] [place] [address] [place] MCV (RBC) [Entitic vol] 100.6 fL High 80.0-100.0 [facility] Comment on above: Order Comment: Speci men Type: BLOOD SPECIMENOrdering Facility: [facility] Address: [address] [place] [address] Performed By: #### 5 7021-8 ####[facility] HOSPITALNCLAKEVIEW HOSPITAL [id number] [place] [address] [place] Monocytes (Bld) [#/Vol] 0.90 10*3/uL High <0.87 [facility] Comment on above: Order Comment: Speci men Type: BLOOD SPECIMENOrdering Facility: [facility] Address: [address] [place] [address] Performed By: #### 5 7021-8 ####[facility] [id number] [place] [address] [place] Monocytes/100 WBC (Bld) 12.4 % Normal [facility] Comment on above: Order Comment: Speci men Type: BLOOD SPECIMENOrdering Facility: [facility] Address: [address] [place] [address] Performed By: #### 5 7021-8 ####[facility] [id number] [place] [address] [place] Neutrophils (Bld) [#/Vol] 3.90 10*3/uL Normal 1.45-7.50 [facility] Comment on above: Order Comment: Speci men Type: BLOOD SPECIMENOrdering Facility: [facility] Address: [address] [place] [address] Performed By: #### 5 7021-8 ####[facility] SHANDRAWANA MLIA [id number] [place] [address] [place] Neutrophils/100 WBC (Bld) 53.9 % Normal [facility] Comment on above: Order Comment: Speci men Type: BLOOD SPECIMENOrdering Facility: [facility] Address: [address] [place] [address] Performed By: #### 5 7021-8 ####[facility] HOSPITALJACOBY [id number] [place] [address] [place] Nucleated RBC (Bld) [#/Vol] 10*3/uL Normal <0.01 [facility] Comment on above: Order Comment: Speci men Type: BLOOD SPECIMENOrdering Facility: [facility] Address: [address] [place] [address] Performed By: #### 5 7021-8 ####[facility] [id number] [place] [address] [place] Nucleated RBC/100 WBC (Bld) [Ratio] 0.0 /100 WBC Normal [facility] Comment on above: Order Comment: Speci men Type: BLOOD SPECIMENOrdering Facility: [facility] Address: [address] [place] [address] Performed By: #### 5 7021-8 ####[facility] CENTERLENIN [id number] [place] [address] [place] Platelet mean volume (Bld) [Entitic vol] 9.2 fL Normal 9.0-12.7 [facility] Comment on above: Order Comment: Speci men Type: BLOOD SPECIMENOrdering Facility: [facility] Address: [address] [place] [address] Performed By: #### 5 7021-8 ####[facility] MEDICAL CENTERLIA [id number] [place] [address] [place] Platelets (Bld) [#/Vol] 254 10*3/uL Normal 150-400 [facility] Comment on above: Order Comment: Speci men Type: BLOOD SPECIMENOrdering Facility: [facility] Address: [address] [place] [address] Performed By: #### 5 7021-8 ####[facility] HOSPITALNCLIA [id number] [place] [address] [place] RBC (Bld) [#/Vol] 3.16 10*6/uL Low 3.90-5.20 [facility] Comment on above: Order Comment: Speci men Type: BLOOD SPECIMENOrdering Facility: [facility] Address: [address] [place] [address] Performed By: #### 5 7021-8 ####[facility] HOSPITALNCA [id number] [place] [address] [place] WBC (Bld) [#/Vol] 7.25 10*3/uL Normal 3.70-11.00 [facility] Comment on above: Order Comment: Speci men Type: BLOOD SPECIMENOrdering Facility: [facility] Address: [address] [place] [address] Performed By: #### 5 7021-8 ####[facility] HOSPITALNCLIA [id number] [place] [address] [place] CNOVSPon 2024 CNOVSP Normal [facility] Comprehensive metabolic 2000 panelon 2024 Albumin [Mass/Vol] 4.0 g/dL Normal 3.9-4.9 [facility] Comment on above: Order Comment: Speci men Type: BLOOD SPECIMENOrdering Facility: [facility] Address: [address] [place] [address] Performed By: #### 2 4323-8 ####[facility] HOSPITALNCLIA [id number] [place] [address] [place] ALP [Catalytic activity/Vol] 78 U/L Normal 34-123 [facility] Comment on above: Order Comment: Speci men Type: BLOOD SPECIMENOrdering Facility: [facility] Address: [address] [place] [address] Performed By: #### 2 4323-8 ####[facility] [id number] [place] [address] [place] ALT [Catalytic activity/Vol] 5 U/L Low 7-38 [facility] Comment on above: Order Comment: Speci men Type: BLOOD SPECIMENOrdering Facility: [facility] Address: [address] [place] [address] Performed By: #### 2 4323-8 ####[facility] [id number] [place] [address] [place] Anion gap [Moles/Vol] 7 mmol/L Low 8-15 [facility] Comment on above: Order Comment: Speci men Type: BLOOD SPECIMENOrdering Facility: [facility] Address: [address] [place] [address] Performed By: #### 2 4323-8 ####[facility] [id number] [address] [place] AST [Catalytic activity/Vol] 10 U/L Low 13-35 [facility] Comment on above: Order Comment: Speci men Type: BLOOD SPECIMENOrdering Facility: [facility] Address: [address] [place] [address] Performed By: #### 2 4323-8 ####[facility] [id number] [place] [address] [place] Bilirubin [Mass/Vol] 0.5 mg/dL Normal 0.2-1.3 [facility] Comment on above: Order Comment: Speci men Type: BLOOD SPECIMENOrdering Facility: [facility] Address: [address] [place] [address] [place] [address] Performed By: #### 2 4323-8 ####[facility] MILLTOWNCLIA [id number] [place] [address] [place] Calcium [Mass/Vol] 9.7 mg/dL Normal 8.5-10.2 [facility] Comment on above: Order Comment: Speci men Type: BLOOD SPECIMENOrdering Facility: [facility] Address: [address] [place] [address] Performed By: #### 2 4323-8 ####[facility] MILLTOWNCLIA [id number] [place] [address] [place] Chloride [Moles/Vol] 107 mmol/L Normal 98-107 [facility] Comment on above: Order Comment: Speci men Type: BLOOD SPECIMENOrdering Facility: [facility] Address: [address] [place] [address] Performed By: #### 2 4323-8 ####[facility] PORT ORANGEWNCLIA [id number] [place] [address] [place] CO2 [Moles/Vol] 26 mmol/L Normal 22-30 [facility] Comment on above: Order Comment: Speci men Type: BLOOD SPECIMENOrdering Facility: [facility] Address: [address] [place] [address] Performed By: #### 2 4323-8 ####[facility] MILLTOWNCLIA [id number] [place] [address] [place] Creatinine [Mass/Vol] 0.79 mg/dL Normal 0.58-0.96 [facility] Comment on above: Order Comment: Speci men Type: BLOOD SPECIMENOrdering Facility: [facility] Address: [address] [place] [address] Performed By: #### 2 4323-8 ####[facility] MILLTOWNCLIA [id number] [place] [id number] [place] Creatinine and Glomerular filtration rate.predicted panel (S/P/Bld) 76 mL/min/1.73m??? Normal >=60 [facility] Comment on above: Order Comment: Antwan rowland Type: BLOOD SPECIMENOrdering Facility: [facility] Address: [address] [place] [address] Result Comment: Rosana mated Glomerular Filtration Rate (eGFR) is calculated using the 2020 CKD-EPI creatinine equation. This equation utilizes serum creatinine, sex, and age as parameters. The creatinine assay has traceable calibration to isotope dilution-mass spectrometry. Refer to KDIGO guidelines for clinical interpretation. In patients with unstable renal function, e.g. those with acute kidney injury, the eGFR may not accurately reflect actual GFR. Performed By: #### 2 4323-8 ####[facility] [id number] [place] [address] [place] Glucose [Mass/Vol] 88 mg/dL Normal 74-99 [facility] Comment on above: Order Comment: Antwan rowland Type: BLOOD SPECIMENOrdering Facility: [facility] Address: [address] [place] [address] Result Comment: The [place] Diabetes Association (ADA) provides guidance for cutoff values for fasting glucose and random glucose. The ADA defines fasting as no caloric intake for at least 8 hours. Fasting plasma glucose results between 100 to 125 mg/dL indicate increased risk for diabetes (prediabetes).Fasting plasma glucose results greater than or equal to 126 mg/dL meet the criteria for diagnosis of diabetes. In the absence of unequivocal hyperglycemia, results should be confirmed by repeat testing. In a patient with classic symptoms of hyperglycemia or hyperglycemic crisis, random plasma glucose results greater than or equal to 200 mg/dL meet the criteria for diagnosis of diabetes.Reference: Standards of Medical Care in Diabetes 2016, [place] Diabetes Association. Diabetes Care. 2016.39(Suppl 1). Performed By: #### 2 4323-8 ####[facility] [id number] [place] [address] [place] Potassium [Moles/Vol] 3.8 mmol/L Normal 3.7-5.1 [facility] Comment on above: Order Comment: Speci men Type: BLOOD SPECIMENOrdering Facility: [facility] Address: [address] [place] [address] Performed By: #### 2 4323-8 ####[facility] HOSPITALNCLIA [id number] [place] [address] [place] Protein [Mass/Vol] 6.4 g/dL Normal 6.3-8.0 [facility] Comment on above: Order Comment: Speci men Type: BLOOD SPECIMENOrdering Facility: [facility] Address: [address] [place] [address] Performed By: #### 2 4323-8 ####[facility] HOSPITALNCLAKEVIEW H[facility] [id number] [place] [address] [place] Sodium [Moles/Vol] 140 mmol/L Normal 136-144 [facility] Comment on above: Order Comment: Speci men Type: BLOOD SPECIMENOrdering Facility: [facility] Address: [address] [place] [address] Performed By: #### 2 4323-8 ####[facility] HOSPITALNCLIA [id number] [place] [address] [place] Urea nitrogen [Mass/Vol] 21 mg/dL Normal 7-21 [facility] Comment on above: Order Comment: Speci men Type: BLOOD SPECIMENOrdering Facility: [facility] Address: [address] [place] [address] Performed By: #### 2 4323-8 ####[facility] HOSPITALNCLIA [id number] [place] [address] [place] [address] [address] ABD/PEL W IVCONon 025 CT ABD/PEL W IVCON Invalid Interpretation Code [facility] CT CHEST W IVCONon 5 CT CHEST W IVCON Normal [facility] CBC W Auto Differential pane l (Bld)on 04-02-2024 Basophils (Bld) [#/Vol] 0.03 10*3/uL Normal <0.11 [facility] Comment on above: Order Comment: Speci men Type: BLOOD SPECIMENOrdering Facility: [facility] Address: [address] [place] [address] Performed By: #### 5 7021-8 ####[facility] MILLWCTLIA [id number] [place] [address] [place] Basophils/100 WBC (Bld) 0.4 % Normal [facility] Comment on above: Order Comment: Speci men Type: BLOOD SPECIMENOrdering Facility: [facility] Address: [address] [place] [address] Performed By: #### 5 7021-8 ####[facility] [id number] [place] [address] [place] Differential cell count method Nom (Bld) Auto Normal [facility] Comment on above: Order Comment: Speci men Type: BLOOD SPECIMENOrdering Facility: [facility] Address: [address] [place] [address] Performed By: #### 5 7021-8 ####[facility] ERA [id number] [place] [address] [place] Eosinophils (Bld) [#/Vol] 0.17 10*3/uL Normal <0.46 [facility] Comment on above: Order Comment: Speci men Type: BLOOD SPECIMENOrdering Facility: [facility] Address: [address] [place] [address] Performed By: #### 5 7021-8 ####[facility] ERA [id number] [place] [address] [place] Eosinophils/100 WBC (Bld) 2.4 % Normal [facility] Comment on above: Order Comment: Speci men Type: BLOOD SPECIMENOrdering Facility: [facility] Address: [address] [place] [address] Performed By: #### 5 7021-8 ####[facility] SHANDRAROWENAPERCY [id number] [place] [address] [place] Erythrocyte distribution width (RBC) [Ratio] 21.3 % High 11.5-15.0 [facility] Comment on above: Order Comment: Speci men Type: BLOOD SPECIMENOrdering Facility: [facility] Address: [address] [place] [address] Performed By: #### 5 7021-8 ####[facility] HOSPITALNCSofie [id number] [place] [address] [place] Hematocrit (Bld) [Volume fraction] 34.6 % Low 36.0-46.0 [facility] Comment on above: Order Comment: Speci men Type: BLOOD SPECIMENOrdering Facility: [facility] Address: [address] [place] [address] Performed By: #### 5 7021-8 ####[facility] HOSPITALNCLIA [id number] [place] [address] [place] Hemoglobin (Bld) [Mass/Vol] 11.2 g/dL Low 11.5-15.5 [facility] Comment on above: Order Comment: Speci men Type: BLOOD SPECIMENOrdering Facility: [facility] Address: [address] [place] [address] Performed By: #### 5 7021-8 ####[facility] HOSPITALNCLIA [id number] [place] [address] [place] Immature granulocytes (Bld) [#/Vol] 10*3/uL Normal <0.10 [facility] Comment on above: Order Comment: Speci men Type: BLOOD SPECIMENOrdering Facility: [facility] Address: [address] [place] [address] Performed By: #### 5 7021-8 ####[facility] SHANDRAROWENAANA MLIA [id number] [place] [address] [place] Immature granulocytes/100 WBC (Bld) 0.3 % Normal [facility] Comment on above: Order Comment: Speci men Type: BLOOD SPECIMENOrdering Facility: [facility] Address: [address] [place] [address] Performed By: #### 5 7021-8 ####[facility] [id number] [place] [address] [place] Lymphocytes (Bld) [#/Vol] 2.40 10*3/uL Normal 1.00-4.00 [facility] Comment on above: Order Comment: Speci men Type: BLOOD SPECIMENOrdering Facility: [facility] Address: [address] [place] [address] Performed By: #### 5 7021-8 ####[facility] [id number] [place] [address] [place] Lymphocytes/100 WBC (Bld) 34.2 % Normal [facility] Comment on above: Order Comment: Speci men Type: BLOOD SPECIMENOrdering Facility: [facility] Address: [address] [place] [address] Performed By: #### 5 7021-8 ####[facility] [id number] [place] [address] [place] MCH (RBC) [Entitic mass] 31.3 pg Normal 26.0-34.0 [facility] Comment on above: Order Comment: Speci men Type: BLOOD SPECIMENOrdering Facility: [facility] Address: [address] [place] [address] Performed By: #### 5 7021-8 ####[facility] HOSPITALNCLIA [id number] [place] [address] [place] MCHC (RBC) [Mass/Vol] 32.4 g/dL Normal 30.5-36.0 [facility] Comment on above: Order Comment: Speci men Type: BLOOD SPECIMENOrdering Facility: [facility] Address: [address] [place] [address] Performed By: #### 5 7021-8 ####[facility] HOSPITALNCLAKEVIEW H[facility]ITAL [id number] [place] [address] [place] MCV (RBC) [Entitic vol] 96.6 fL Normal 80.0-100.0 [facility] Comment on above: Order Comment: Speci men Type: BLOOD SPECIMENOrdering Facility: [facility] Address: [address] [place] [address] Performed By: #### 5 7021-8 ####[facility] HOSPITALNCLAKEVIEW HOSPITAL [id number] [place] [address] [place] Monocytes (Bld) [#/Vol] 0.72 10*3/uL Normal <0.87 [facility] Comment on above: Order Comment: Speci men Type: BLOOD SPECIMENOrdering Facility: [facility] Address: [address] [place] [address] Performed By: #### 5 7021-8 ####[facility] HOSPITALNCLI [id number] [place] [address] [place] Monocytes/100 WBC (Bld) 10.3 % Normal [facility] Comment on above: Order Comment: Speci men Type: BLOOD SPECIMENOrdering Facility: [facility] Address: [address] [place] [address] Performed By: #### 5 7021-8 ####[facility] [id number] [place] [address] [place] Neutrophils (Bld) [#/Vol] 3.67 10*3/uL Normal 1.45-7.50 [facility] Comment on above: Order Comment: Speci men Type: BLOOD SPECIMENOrdering Facility: [facility] Address: [address] [place] [address] Performed By: #### 5 7021-8 ####[facility] LEWISLIA [id number] [place] [address] [place] Neutrophils/100 WBC (Bld) 52.4 % Normal [facility] Comment on above: Order Comment: Speci men Type: BLOOD SPECIMENOrdering Facility: [facility] Address: [address] [place] [address] Performed By: #### 5 7021-8 ####[facility] HOSPITALANA MLIA [id number] [place] [address] [place] Nucleated RBC (Bld) [#/Vol] 10*3/uL Normal <0.01 [facility] Comment on above: Order Comment: Speci men Type: BLOOD SPECIMENOrdering Facility: [facility] Address: [address] [place] [address] Performed By: #### 5 7021-8 ####[facility] HOSPITALANA MLIA [id number] [place] [address] [place] Nucleated RBC/100 WBC (Bld) [Ratio] 0.0 /100 WBC Normal [facility] Comment on above: Order Comment: Speci men Type: BLOOD SPECIMENOrdering Facility: [facility] Address: [address] [place] [address] Performed By: #### 5 7021-8 ####[facility] HOSPITALNCLIA [id number] [place] [address] [place] Platelet mean volume (Bld) [Entitic vol] 8.9 fL Low 9.0-12.7 [facility] Comment on above: Order Comment: Speci men Type: BLOOD SPECIMENOrdering Facility: [facility] Address: [address] [place] [address] Performed By: #### 5 7021-8 ####[facility] HOSPITALANA [facility] [id number] [place] [address] [place] Platelets (Bld) [#/Vol] 257 10*3/uL Normal 150-400 [facility] Comment on above: Order Comment: Speci men Type: BLOOD SPECIMENOrdering Facility: [facility] Address: [address] [place] [address] Performed By: #### 5 7021-8 ####[facility] [id number] [place] [address] [place] RBC (Bld) [#/Vol] 3.58 10*6/uL Low 3.90-5.20 [facility] Comment on above: Order Comment: Speci men Type: BLOOD SPECIMENOrdering Facility: [facility] Address: [address] [place] [address] Performed By: #### 5 7021-8 ####[facility] [id number] [place] [address] [place] WBC (Bld) [#/Vol] 7.01 10*3/uL Normal 3.70-11.00 [facility] Comment on above: Order Comment: Speci men Type: BLOOD SPECIMENOrdering Facility: [facility] Address: [address] [place] [address] Performed By: #### 5 7021-8 ####[facility] [id number] [place] [address] [place] CNOVSPon 04-02-2024 CNOVSP Normal [facility] Comprehensive metabolic 2000 panelon 04-02-2024 Albumin [Mass/Vol] 4.0 g/dL Normal 3.9-4.9 [facility] Comment on above: Order Comment: Speci men Type: BLOOD SPECIMENOrdering Facility: [facility] Address: [address] [place] [address] Performed By: #### 2 4323-8 ####[facility] PORT ORANGEWNCLIA [id number] [place] [address] [place] ALP [Catalytic activity/Vol] 77 U/L Normal 34-123 [facility] Comment on above: Order Comment: Speci men Type: BLOOD SPECIMENOrdering Facility: [facility] Address: [address] [place] [address] Performed By: #### 2 4323-8 ####[facility] MILLTOWNCLIA [id number] [place] [address] [place] ALT [Catalytic activity/Vol] 5 U/L Low 7-38 [facility] Comment on above: Order Comment: Speci men Type: BLOOD SPECIMENOrdering Facility: [facility] Address: [address] [place] [address] Performed By: #### 2 4323-8 ####[facility] HOSPITALNCLIA [id number] [place] [address] [place] Anion gap [Moles/Vol] 8 mmol/L Normal 8-15 [facility] Comment on above: Order Comment: Speci men Type: BLOOD SPECIMENOrdering Facility: [facility] Address: [address] [place] [address] Performed By: #### 2 4323-8 ####[facility] PORT ORANGEWNCLIA [id number] [place] [address] [place] AST [Catalytic activity/Vol] 11 U/L Low 13-35 [facility] Comment on above: Order Comment: Speci men Type: BLOOD SPECIMENOrdering Facility: [facility] Address: [address] [place] [address] Performed By: #### 2 4323-8 ####[facility] MILLTONCLIA [id number] [place] [address] [place] Bilirubin [Mass/Vol] 0.5 mg/dL Normal 0.2-1.3 [facility] Comment on above: Order Comment: Speci men Type: BLOOD SPECIMENOrdering Facility: [facility] Address: [address] [place] [address] Performed By: #### 2 4323-8 ####[facility] LUCIONCLENINA [id number] [place] [address] [place] Calcium [Mass/Vol] 9.8 mg/dL Normal 8.5-10.2 [facility] Comment on above: Order Comment: Speci men Type: BLOOD SPECIMENOrdering Facility: [facility] Address: [address] [place] [address] Performed By: #### 2 4323-8 ####[facility] HOSPITALNCLIA [id number] [place] [address] [place] Chloride [Moles/Vol] 106 mmol/L Normal 98-107 [facility] Comment on above: Order Comment: Speci men Type: BLOOD SPECIMENOrdering Facility: [facility] Address: [address] [place] [address] Performed By: #### 2 4323-8 ####[facility] HOSPITALNCLENINA [id number] [place] [address] [place] CO2 [Moles/Vol] 24 mmol/L Normal 22-30 [facility] Comment on above: Order Comment: Speci men Type: BLOOD SPECIMENOrdering Facility: [facility] Address: [address] [place] [address] Performed By: #### 2 4323-8 ####[facility] HOSPITALNCLIA [id number] [place] [address] [place] Creatinine [Mass/Vol] 0.71 mg/dL Normal 0.58-0.96 [facility] Comment on above: Order Comment: Speci men Type: BLOOD SPECIMENOrdering Facility: [facility] Address: [address] [place] [address] Performed By: #### 2 4323-8 ####[facility] HOSPITALNCLI [id number] [place] [address] [place] Creatinine and Glomerular filtration rate.predicted panel (S/P/Bld) 87 mL/min/1.73m??? Normal >=60 [facility] Comment on above: Order Comment: Antwan rowland Type: BLOOD SPECIMENOrdering Facility: [facility] Address: [address] [place] [address] Result Comment: Rosana mated Glomerular Filtration Rate (eGFR) is calculated using the 2020 CKD-EPI creatinine equation. This equation utilizes serum creatinine, sex, and age as parameters. The creatinine assay has traceable calibration to isotope dilution-mass spectrometry. Refer to KDIGO guidelines for clinical interpretation. In patients with unstable renal function, e.g. those with acute kidney injury, the eGFR may not accurately reflect actual GFR. Performed By: #### 2 4323-8 ####[facility] [id number] [place] [address] [place] Glucose [Mass/Vol] 105 mg/dL High 74-99 [facility] Comment on above: Order Comment: Antwan rowland Type: BLOOD SPECIMENOrdering Facility: [facility] Address: [address] [place] [address] Result Comment: The [place] Diabetes Association (ADA) provides guidance for cutoff values for fasting glucose and random glucose. The ADA defines fasting as no caloric intake for at least 8 hours. Fasting plasma glucose results between 100 to 125 mg/dL indicate increased risk for diabetes (prediabetes).Fasting plasma glucose results greater than or equal to 126 mg/dL meet the criteria for diagnosis of diabetes. In the absence of unequivocal hyperglycemia, results should be confirmed by repeat testing. In a patient with classic symptoms of hyperglycemia or hyperglycemic crisis, random plasma glucose results greater than or equal to 200 mg/dL meet the criteria for diagnosis of diabetes.Reference: Standards of Medical Care in Diabetes 2016, [place] Diabetes Association. Diabetes Care. 2016.39(Suppl 1). Performed By: #### 2 4323-8 ####[facility] [id number] [place] [address] [place] Potassium [Moles/Vol] 4.3 mmol/L Normal 3.7-5.1 [facility] Comment on above: Order Comment: Speci men Type: BLOOD SPECIMENOrdering Facility: [facility] Address: [address] [place] [address] Performed By: #### 2 4323-8 ####[facility] HOSPITALPERCY [id number] [place] [address] [place] Protein [Mass/Vol] 6.6 g/dL Normal 6.3-8.0 [facility] Comment on above: Order Comment: Speci men Type: BLOOD SPECIMENOrdering Facility: [facility] Address: [address] [place] [address] Performed By: #### 2 4323-8 ####[facility] HOSPITALPERCY [id number] [place] [address] [place] Sodium [Moles/Vol] 138 mmol/L Normal 136-144 [facility] Comment on above: Order Comment: Speci men Type: BLOOD SPECIMENOrdering Facility: [facility] Address: [address] [place] [address] Performed By: #### 2 4323-8 ####[facility] HOSPITALNCLISofie [id number] [place] [address] [place] Urea nitrogen [Mass/Vol] 18 mg/dL Normal 7-21 [facility] Comment on above: Order Comment: Speci men Type: BLOOD SPECIMENOrdering Facility: [facility] Address: [address] [place] [address] Performed By: #### 2 4323-8 ####[facility] HOSPITALNCLIA [id number] [place] [address] [place] CBC W Auto Differential pane l (Bld)on 03-11-2024 Basophils (Bld) [#/Vol] 0.03 10*3/uL Normal <0.11 [facility] Comment on above: Order Comment: Speci men Type: BLOOD SPECIMENOrdering Facility: [facility] Address: [address] [place] [address] Performed By: #### 5 7021-8 ####[facility] SHANDRAWNCLIA [id number] [place] [address] [place] Basophils/100 WBC (Bld) 0.4 % Normal [facility] Comment on above: Order Comment: Speci men Type: BLOOD SPECIMENOrdering Facility: [facility] Address: [address] [place] [address] Performed By: #### 5 7021-8 ####[facility] PORT ORANGEWNCLIA [id number] [place] [address] [place] Differential cell count method Nom (Bld) Auto Normal [facility] Comment on above: Order Comment: Speci men Type: BLOOD SPECIMENOrdering Facility: [facility] Address: [address] [place] [address] Performed By: #### 5 7021-8 ####[facility] PORT ORANGEWCTLIA [id number] [place] [address] [place] Eosinophils (Bld) [#/Vol] 0.16 10*3/uL Normal <0.46 [facility] Comment on above: Order Comment: Speci men Type: BLOOD SPECIMENOrdering Facility: [facility] Address: [address] [place] [address] Performed By: #### 5 7021-8 ####[facility] MILLWNCLIA [id number] [place] [address] [place] Eosinophils/100 WBC (Bld) 2.3 % Normal [facility] Comment on above: Order Comment: Speci men Type: BLOOD SPECIMENOrdering Facility: [facility] Address: [address] [place] [address] Performed By: #### 5 7021-8 ####[facility] MEDICAL CENTERLIA [id number] [place] [address] [place] Erythrocyte distribution width (RBC) [Ratio] 19.9 % High 11.5-15.0 [facility] Comment on above: Order Comment: Speci men Type: BLOOD SPECIMENOrdering Facility: [facility] Address: [address] [place] [address] Performed By: #### 5 7021-8 ####[facility] [id number] [place] [address] [place] Hematocrit (Bld) [Volume fraction] 33.6 % Low 36.0-46.0 [facility] Comment on above: Order Comment: Speci men Type: BLOOD SPECIMENOrdering Facility: [facility] Address: [address] [place] [address] Performed By: #### 5 7021-8 ####[facility] [id number] [place] [address] [place] Hemoglobin (Bld) [Mass/Vol] 10.8 g/dL Low 11.5-15.5 [facility] Comment on above: Order Comment: Speci men Type: BLOOD SPECIMENOrdering Facility: [facility] Address: [address] [place] [address] Performed By: #### 5 7021-8 ####[facility] [id number] [place] [address] [place] Immature granulocytes (Bld) [#/Vol] 10*3/uL Normal <0.10 [facility] Comment on above: Order Comment: Speci men Type: BLOOD SPECIMENOrdering Facility: [facility] Address: [address] [place] [address] Performed By: #### 5 7021-8 ####[facility] [id number] [place] [address] [place] Immature granulocytes/100 WBC (Bld) 0.1 % Normal [facility] Comment on above: Order Comment: Speci men Type: BLOOD SPECIMENOrdering Facility: [facility] Address: [address] [place] [address] Performed By: #### 5 7021-8 ####[facility] ERA [id number] [place] [address] [place] Lymphocytes (Bld) [#/Vol] 2.96 10*3/uL Normal 1.00-4.00 [facility] Comment on above: Order Comment: Speci men Type: BLOOD SPECIMENOrdering Facility: [facility] Address: [address] [place] [address] Performed By: #### 5 7021-8 ####[facility] [id number] [place] [address] [place] Lymphocytes/100 WBC (Bld) 42.5 % Normal [facility] Comment on above: Order Comment: Speci men Type: BLOOD SPECIMENOrdering Facility: [facility] Address: [address] [place] [address] Performed By: #### 5 7021-8 ####[facility] HOSPITALNCLAKEVIEW HOS[facility]ITAL [id number] [place] [address] [place] MCH (RBC) [Entitic mass] 30.9 pg Normal 26.0-34.0 [facility] Comment on above: Order Comment: Speci men Type: BLOOD SPECIMENOrdering Facility: [facility] Address: [address] [place] [address] Performed By: #### 5 7021-8 ####[facility] HOSPITALNCLAKEVIEW HOSPITAL [id number] [place] [address] [place] MCHC (RBC) [Mass/Vol] 32.1 g/dL Normal 30.5-36.0 [facility] Comment on above: Order Comment: Speci men Type: BLOOD SPECIMENOrdering Facility: [facility] Address: [address] [place] [address] Performed By: #### 5 7021-8 ####[facility] SHANDRACASEY [id number] [place] [address] [place] MCV (RBC) [Entitic vol] 96.3 fL Normal 80.0-100.0 [facility] Comment on above: Order Comment: Speci men Type: BLOOD SPECIMENOrdering Facility: [facility] Address: [address] [place] [address] Performed By: #### 5 7021-8 ####[facility] HOSPITALNCSofie [id number] [place] [address] [place] Monocytes (Bld) [#/Vol] 0.72 10*3/uL Normal <0.87 [facility] Comment on above: Order Comment: Speci men Type: BLOOD SPECIMENOrdering Facility: [facility] Address: [address] [place] [address] Performed By: #### 5 7021-8 ####[facility] HOSPITALNCA [id number] [place] [address] [place] Monocytes/100 WBC (Bld) 10.3 % Normal [facility] Comment on above: Order Comment: Speci men Type: BLOOD SPECIMENOrdering Facility: [facility] Address: [address] [place] [address] Performed By: #### 5 7021-8 ####[facility] HOSPITALNCLIA [id number] [place] [address] [place] Neutrophils (Bld) [#/Vol] 3.09 10*3/uL Normal 1.45-7.50 [facility] Comment on above: Order Comment: Speci men Type: BLOOD SPECIMENOrdering Facility: [facility] Address: [address] [place] [address] Performed By: #### 5 7021-8 ####[facility] PORT ORANGEWNCLIA [id number] [place] [address] [place] Neutrophils/100 WBC (Bld) 44.4 % Normal [facility] Comment on above: Order Comment: Speci men Type: BLOOD SPECIMENOrdering Facility: [facility] Address: [address] [place] [address] Performed By: #### 5 7021-8 ####[facility] CENTERLIA [id number] [place] [address] [place] Nucleated RBC (Bld) [#/Vol] 10*3/uL Normal <0.01 [facility] Comment on above: Order Comment: Speci men Type: BLOOD SPECIMENOrdering Facility: [facility] Address: [address] [place] [address] Performed By: #### 5 7021-8 ####[facility] [id number] [place] [address] [place] Nucleated RBC/100 WBC (Bld) [Ratio] 0.0 /100 WBC Normal [facility] Comment on above: Order Comment: Speci men Type: BLOOD SPECIMENOrdering Facility: [facility] Address: [address] [place] [address] Performed By: #### 5 7021-8 ####[facility] [id number] [place] [address] [place] Platelet mean volume (Bld) [Entitic vol] 9.0 fL Normal 9.0-12.7 [facility] Comment on above: Order Comment: Speci men Type: BLOOD SPECIMENOrdering Facility: [facility] Address: [address] [place] [address] Performed By: #### 5 7021-8 ####[facility] HOSPITALNCLI [id number] [place] [address] [place] Platelets (Bld) [#/Vol] 230 10*3/uL Normal 150-400 [facility] Comment on above: Order Comment: Speci men Type: BLOOD SPECIMENOrdering Facility: [facility] Address: [address] [place] [address] Performed By: #### 5 7021-8 ####[facility] PORT ORANGEMichaelJACOBYA [id number] [place] [address] [place] RBC (Bld) [#/Vol] 3.49 10*6/uL Low 3.90-5.20 [facility] Comment on above: Order Comment: Speci men Type: BLOOD SPECIMENOrdering Facility: [facility] Address: [address] [place] [address] Performed By: #### 5 7021-8 ####[facility] HOSPITALNCLENINA [id number] [place] [address] [place] WBC (Bld) [#/Vol] 6.97 10*3/uL Normal 3.70-11.00 [facility] Comment on above: Order Comment: Speci men Type: BLOOD SPECIMENOrdering Facility: [facility] Address: [address] [place] [address] Performed By: #### 5 7021-8 ####[facility] HOSPITALNCLIA [id number] [place] [address] [place] CNOVSPon 03-11-2024 CNOVSP Normal [facility] Comprehensive metabolic 2000 panelon 03-11-2024 Albumin [Mass/Vol] 4.1 g/dL Normal 3.9-4.9 [facility] Comment on above: Order Comment: Speci men Type: BLOOD SPECIMENOrdering Facility: [facility] Address: [address] [place] [address] Performed By: #### 2 4323-8 ####[facility] HOSPITALNCLIA [id number] [place] [id number] [place] ALP [Catalytic activity/Vol] 75 U/L Normal 34-123 [facility] Comment on above: Order Comment: Speci men Type: BLOOD SPECIMENOrdering Facility: [facility] Address: [address] [place] [address] Performed By: #### 2 4323-8 ####[facility] MILLTOWNCLIA [id number] [place] [address] [place] ALT [Catalytic activity/Vol] 6 U/L Low 7-38 [facility] Comment on above: Order Comment: Speci men Type: BLOOD SPECIMENOrdering Facility: [facility] Address: [address] [place] [address] Performed By: #### 2 4323-8 ####[facility] HOSPITALNCLIA [id number] [place] [address] [place] Anion gap [Moles/Vol] 11 mmol/L Normal 8-15 [facility] Comment on above: Order Comment: Speci men Type: BLOOD SPECIMENOrdering Facility: [facility] Address: [address] [place] [address] Performed By: #### 2 4323-8 ####[facility] HOSPITALNCLIA [id number] [place] [address] [place] AST [Catalytic activity/Vol] 12 U/L Low 13-35 [facility] Comment on above: Order Comment: Speci men Type: BLOOD SPECIMENOrdering Facility: [facility] Address: [address] [place] [address] Performed By: #### 2 4323-8 ####[facility] HOSPITALNCA [id number] [place] [address] [place] Bilirubin [Mass/Vol] 0.4 mg/dL Normal 0.2-1.3 [facility] Comment on above: Order Comment: Speci men Type: BLOOD SPECIMENOrdering Facility: [facility] Address: [address] [place] [id number] Performed By: #### 2 4323-8 ####[facility] MILLTOWNCLIA [id number] [place] [address] [place] Calcium [Mass/Vol] 9.9 mg/dL Normal 8.5-10.2 [facility] Comment on above: Order Comment: Speci men Type: BLOOD SPECIMENOrdering Facility: [facility] Address: [address] [place] [address] Performed By: #### 2 4323-8 ####[facility] MILLWNCLIA [id number] [place] [address] [place] Chloride [Moles/Vol] 107 mmol/L Normal 98-107 [facility] Comment on above: Order Comment: Speci men Type: BLOOD SPECIMENOrdering Facility: [facility] Address: [address] [place] [address] Performed By: #### 2 4323-8 ####[facility] PORT ORANGEWNCLIA [id number] [place] [address] [place] CO2 [Moles/Vol] 26 mmol/L Normal 22-30 [facility] Comment on above: Order Comment: Speci men Type: BLOOD SPECIMENOrdering Facility: [facility] Address: [address] [place] [address] Performed By: #### 2 4323-8 ####[facility] MILLTOWNCLIA [id number] [place] [address] [place] Creatinine [Mass/Vol] 0.73 mg/dL Normal 0.58-0.96 [facility] Comment on above: Order Comment: Speci men Type: BLOOD SPECIMENOrdering Facility: [facility] Address: [address] [place] [address] Performed By: #### 2 4323-8 ####[facility] MILLTOWNCLIA [id number] [place] [address] [place] Creatinine and Glomerular filtration rate.predicted panel (S/P/Bld) 84 mL/min/1.73m??? Normal >=60 [facility] Comment on above: Order Comment: Antwan rowland Type: BLOOD SPECIMENOrdering Facility: [facility] Address: [address] [place] [address] Result Comment: Rosana mated Glomerular Filtration Rate (eGFR) is calculated using the 2020 CKD-EPI creatinine equation. This equation utilizes serum creatinine, sex, and age as parameters. The creatinine assay has traceable calibration to isotope dilution-mass spectrometry. Refer to KDIGO guidelines for clinical interpretation. In patients with unstable renal function, e.g. those with acute kidney injury, the eGFR may not accurately reflect actual GFR. Performed By: #### 2 4323-8 ####[facility] [id number] [place] [address] [place] Glucose [Mass/Vol] 100 mg/dL High 74-99 [facility] Comment on above: Order Comment: Antwan rowland Type: BLOOD SPECIMENOrdering Facility: [facility] Address: [address] [place] [address] Result Comment: The [place] Diabetes Association (ADA) provides guidance for cutoff values for fasting glucose and random glucose. The ADA defines fasting as no caloric intake for at least 8 hours. Fasting plasma glucose results between 100 to 125 mg/dL indicate increased risk for diabetes (prediabetes).Fasting plasma glucose results greater than or equal to 126 mg/dL meet the criteria for diagnosis of diabetes. In the absence of unequivocal hyperglycemia, results should be confirmed by repeat testing. In a patient with classic symptoms of hyperglycemia or hyperglycemic crisis, random plasma glucose results greater than or equal to 200 mg/dL meet the criteria for diagnosis of diabetes.Reference: Standards of Medical Care in Diabetes 2016, [place] Diabetes Association. Diabetes Care. 2016.39(Suppl 1). Performed By: #### 2 4323-8 ####[facility] [id number] [place] [address] [place] Potassium [Moles/Vol] 3.7 mmol/L Normal 3.7-5.1 [facility] Comment on above: Order Comment: Speci men Type: BLOOD SPECIMENOrdering Facility: [facility] Address: [address] [place] [address] Performed By: #### 2 4323-8 ####[facility] HOSPITALNCLAKEVIEW H[facility] [id number] [place] [address] [place] Protein [Mass/Vol] 6.6 g/dL Normal 6.3-8.0 [facility] Comment on above: Order Comment: Speci men Type: BLOOD SPECIMENOrdering Facility: [facility] Address: [address] [place] [address] Performed By: #### 2 4323-8 ####[facility] [id number] [place] [address] [place] Sodium [Moles/Vol] 144 mmol/L Normal 136-144 [facility] Comment on above: Order Comment: Speci men Type: BLOOD SPECIMENOrdering Facility: [facility] Address: [address] [place] [address] Performed By: #### 2 4323-8 ####[facility] HOSPITALNCLI [id number] [address] [place] Urea nitrogen [Mass/Vol] 19 mg/dL Normal 7-21 [facility] Comment on above: Order Comment: Speci men Type: BLOOD SPECIMENOrdering Facility: [facility] Address: [address] [place] [address] Performed By: #### 2 4323-8 ####[facility] CENTERLIA [id number] [place] [address] [place] CBC W Auto Differential pane l (Bld)on 02-20-2024 Basophils (Bld) [#/Vol] 0.04 10*3/uL Normal <0.11 [facility] Comment on above: Order Comment: Speci men Type: BLOOD SPECIMENOrdering Facility: [facility] Address: [address] [place] [address] Performed By: #### 5 7021-8 ####[facility] MILLWNCLIA [id number] [place] [address] [place] Basophils/100 WBC (Bld) 0.6 % Normal [facility] Comment on above: Order Comment: Speci men Type: BLOOD SPECIMENOrdering Facility: [facility] Address: [address] [place] [address] Performed By: #### 5 7021-8 ####[facility] HOSPITALNCLIA [id number] [place] [address] [place] Differential cell count method Nom (Bld) Auto Normal [facility] Comment on above: Order Comment: Speci men Type: BLOOD SPECIMENOrdering Facility: [facility] Address: [address] [place] [address] Performed By: #### 5 7021-8 ####[facility] CENTERLIA [id number] [place] [address] [place] Eosinophils (Bld) [#/Vol] 0.09 10*3/uL Normal <0.46 [facility] Comment on above: Order Comment: Speci men Type: BLOOD SPECIMENOrdering Facility: [facility] Address: [address] [place] [address] Performed By: #### 5 7021-8 ####[facility] MILLWNCLIA [id number] [place] [address] [place] Eosinophils/100 WBC (Bld) 1.4 % Normal [facility] Comment on above: Order Comment: Speci men Type: BLOOD SPECIMENOrdering Facility: [facility] Address: [address] [place] [address] Performed By: #### 5 7021-8 ####[facility] MILLWNCLIA [id number] [place] [address] [place] Erythrocyte distribution width (RBC) [Ratio] 17.8 % High 11.5-15.0 [facility] Comment on above: Order Comment: Speci men Type: BLOOD SPECIMENOrdering Facility: [facility] Address: [address] [place] [address] Performed By: #### 5 7021-8 ####[facility] HOSPITALANA MSofie [id number] [place] [address] [place] Hematocrit (Bld) [Volume fraction] 35.0 % Low 36.0-46.0 [facility] Comment on above: Order Comment: Speci men Type: BLOOD SPECIMENOrdering Facility: [facility] Address: [address] [place] [address] Performed By: #### 5 7021-8 ####[facility] [id number] [place] [address] [place] Hemoglobin (Bld) [Mass/Vol] 11.3 g/dL Low 11.5-15.5 [facility] Comment on above: Order Comment: Speci men Type: BLOOD SPECIMENOrdering Facility: [facility] Address: [address] [place] [address] Performed By: #### 5 7021-8 ####[facility] HOSPITALPERCY [id number] [place] [address] [place] Immature granulocytes (Bld) [#/Vol] 10*3/uL Normal <0.10 [facility] Comment on above: Order Comment: Speci men Type: BLOOD SPECIMENOrdering Facility: [facility] Address: [address] [place] [address] Performed By: #### 5 7021-8 ####[facility] HOSPITALNCLIA [id number] [place] [address] [place] Immature granulocytes/100 WBC (Bld) 0.3 % Normal [facility] Comment on above: Order Comment: Speci men Type: BLOOD SPECIMENOrdering Facility: [facility] Address: [address] [place] [address] Performed By: #### 5 7021-8 ####[facility] CENTERLIA [id number] [place] [address] [place] Lymphocytes (Bld) [#/Vol] 3.31 10*3/uL Normal 1.00-4.00 [facility] Comment on above: Order Comment: Speci men Type: BLOOD SPECIMENOrdering Facility: [facility] Address: [address] [place] [address] Performed By: #### 5 7021-8 ####[facility] [id number] [place] [address] [place] Lymphocytes/100 WBC (Bld) 50.2 % Normal [facility] Comment on above: Order Comment: Speci men Type: BLOOD SPECIMENOrdering Facility: [facility] Address: [address] [place] [address] Performed By: #### 5 7021-8 ####[facility] [id number] [place] [address] [place] MCH (RBC) [Entitic mass] 30.1 pg Normal 26.0-34.0 [facility] Comment on above: Order Comment: Speci men Type: BLOOD SPECIMENOrdering Facility: [facility] Address: [address] [place] [address] Performed By: #### 5 7021-8 ####[facility] [id number] [place] [address] [place] MCHC (RBC) [Mass/Vol] 32.3 g/dL Normal 30.5-36.0 [facility] Comment on above: Order Comment: Speci men Type: BLOOD SPECIMENOrdering Facility: [facility] Address: [address] [place] [address] Performed By: #### 5 7021-8 ####[facility] SHANDRAROWENANCLIA [id number] [place] [address] [place] MCV (RBC) [Entitic vol] 93.3 fL Normal 80.0-100.0 [facility] Comment on above: Order Comment: Speci men Type: BLOOD SPECIMENOrdering Facility: [facility] Address: [address] [place] [address] Performed By: #### 5 7021-8 ####[facility] HOSPITALNCLIA [id number] [place] [address] [place] Monocytes (Bld) [#/Vol] 0.87 10*3/uL High <0.87 [facility] Comment on above: Order Comment: Speci men Type: BLOOD SPECIMENOrdering Facility: [facility] Address: [address] [place] [address] Performed By: #### 5 7021-8 ####[facility] [id number] [place] [address] [place] Monocytes/100 WBC (Bld) 13.2 % Normal [facility] Comment on above: Order Comment: Speci men Type: BLOOD SPECIMENOrdering Facility: [facility] Address: [address] [place] [address] Performed By: #### 5 7021-8 ####[facility] CENTERLIA [id number] [place] [address] [place] Neutrophils (Bld) [#/Vol] 2.26 10*3/uL Normal 1.45-7.50 [facility] Comment on above: Order Comment: Speci men Type: BLOOD SPECIMENOrdering Facility: [facility] Address: [address] [place] [address] Performed By: #### 5 7021-8 ####[facility]ENTERLAKEVIEW [facility] [id number] [place] [address] [place] Neutrophils/100 WBC (Bld) 34.3 % Normal [facility] Comment on above: Order Comment: Speci men Type: BLOOD SPECIMENOrdering Facility: [facility] Address: [address] [place] [address] Performed By: #### 5 7021-8 ####[facility] [id number] [place] [address] [place] Nucleated RBC (Bld) [#/Vol] 10*3/uL Normal <0.01 [facility] Comment on above: Order Comment: Speci men Type: BLOOD SPECIMENOrdering Facility: [facility] Address: [address] [place] [address] Performed By: #### 5 7021-8 ####[facility] HOSPITALNCLAKEVIEW HOSPITAL [id number] [place] [address] [place] Nucleated RBC/100 WBC (Bld) [Ratio] 0.0 /100 WBC Normal [facility] Comment on above: Order Comment: Speci men Type: BLOOD SPECIMENOrdering Facility: [facility] Address: [address] [place] [address] Performed By: #### 5 7021-8 ####[facility] [id number] [place] [address] [place] Platelet mean volume (Bld) [Entitic vol] 8.4 fL Low 9.0-12.7 [facility] Comment on above: Order Comment: Speci men Type: BLOOD SPECIMENOrdering Facility: [facility] Address: [address] [place] [address] Performed By: #### 5 7021-8 ####[facility] HOSPITALNCLI [id number] [place] [address] [place] Platelets (Bld) [#/Vol] 280 10*3/uL Normal 150-400 [facility] Comment on above: Order Comment: Speci men Type: BLOOD SPECIMENOrdering Facility: [facility] Address: [address] [place] [address] Performed By: #### 5 7021-8 ####[facility] KANDISWNCLIA [id number] [place] [address] [place] RBC (Bld) [#/Vol] 3.75 10*6/uL Low 3.90-5.20 [facility] Comment on above: Order Comment: Speci men Type: BLOOD SPECIMENOrdering Facility: [facility] Address: [address] [place] [address] Performed By: #### 5 7021-8 ####[facility] HOSPITALNCLIA [id number] [place] [address] [place] WBC (Bld) [#/Vol] 6.59 10*3/uL Normal 3.70-11.00 [facility] Comment on above: Order Comment: Speci men Type: BLOOD SPECIMENOrdering Facility: [facility] Address: [address] [place] [address] Performed By: #### 5 7021-8 ####[facility] HOSPITALNCLIA [id number] [place] [address] [place] CNOVSPon 02-20-2024 CNOVSP Normal [facility] Comprehensive metabolic 2000 panelon 02-20-2024 Albumin [Mass/Vol] 3.9 g/dL Normal 3.9-4.9 [facility] Comment on above: Order Comment: Speci men Type: BLOOD SPECIMENOrdering Facility: [facility] Address: [address] [place] [address] Performed By: #### 2 4323-8 ####[facility] HOSPITALNCLIA [id number] [place] [address] [place] ALP [Catalytic activity/Vol] 77 U/L Normal 34-123 [facility] Comment on above: Order Comment: Speci men Type: BLOOD SPECIMENOrdering Facility: [facility] Address: [address] [place] [address] Performed By: #### 2 4323-8 ####[facility] SHANDRATOWNCLIA [id number] [place] [address] [place] ALT [Catalytic activity/Vol] 7 U/L Normal 7-38 [facility] Comment on above: Order Comment: Speci men Type: BLOOD SPECIMENOrdering Facility: [facility] Address: [address] [place] [address] Performed By: #### 2 4323-8 ####[facility] PORT ORANGEWNCLIA [id number] [place] [address] [place] Anion gap [Moles/Vol] 13 mmol/L Normal 8-15 [facility] Comment on above: Order Comment: Speci men Type: BLOOD SPECIMENOrdering Facility: [facility] Address: [address] [place] [address] Performed By: #### 2 4323-8 ####[facility] HOSPITALNCLIA [id number] [place] [address] [place] AST [Catalytic activity/Vol] 11 U/L Low 13-35 [facility] Comment on above: Order Comment: Speci men Type: BLOOD SPECIMENOrdering Facility: [facility] Address: [address] [place] [address] Performed By: #### 2 4323-8 ####[facility] PORT ORANGEWNCLIA [id number] [place] [address] [place] Bilirubin [Mass/Vol] 0.3 mg/dL Normal 0.2-1.3 [facility] Comment on above: Order Comment: Speci men Type: BLOOD SPECIMENOrdering Facility: [facility] Address: [address] [place] [address] Performed By: #### 2 4323-8 ####[facility] MILLTOWNCLIA [id number] [place] [address] [place] Calcium [Mass/Vol] 9.9 mg/dL Normal 8.5-10.2 [facility] Comment on above: Order Comment: Speci men Type: BLOOD SPECIMENOrdering Facility: [facility] Address: [address] [place] [address] Performed By: #### 2 4323-8 ####[facility] MILLTOWNCLIA [id number] [place] [address] [place] Chloride [Moles/Vol] 104 mmol/L Normal 98-107 [facility] Comment on above: Order Comment: Speci men Type: BLOOD SPECIMENOrdering Facility: [facility] Address: [address] [place] [address] Performed By: #### 2 4323-8 ####[facility] CENTERLIA [id number] [place] [address] [place] CO2 [Moles/Vol] 22 mmol/L Normal 22-30 [facility] Comment on above: Order Comment: Speci men Type: BLOOD SPECIMENOrdering Facility: [facility] Address: [address] [place] [address] Performed By: #### 2 4323-8 ####[facility] HOSPITALNCLIA [id number] [place] [address] [place] Creatinine [Mass/Vol] 0.77 mg/dL Normal 0.58-0.96 [facility] Comment on above: Order Comment: Speci men Type: BLOOD SPECIMENOrdering Facility: [facility] Address: [address] [place] [address] Performed By: #### 2 4323-8 ####[facility] HOSPITALNCLIA [id number] [place] [address] [place] Creatinine and Glomerular filtration rate.predicted panel (S/P/Bld) 79 mL/min/1.73m??? Normal >=60 [facility] Comment on above: Order Comment: Antwan rowland Type: BLOOD SPECIMENOrdering Facility: [facility] Address: [address] [place] [address] Result Comment: Rosaan mated Glomerular Filtration Rate (eGFR) is calculated using the 2020 CKD-EPI creatinine equation. This equation utilizes serum creatinine, sex, and age as parameters. The creatinine assay has traceable calibration to isotope dilution-mass spectrometry. Refer to KDIGO guidelines for clinical interpretation. In patients with unstable renal function, e.g. those with acute kidney injury, the eGFR may not accurately reflect actual GFR. Performed By: #### 2 4323-8 ####[facility] HOSPITALANA MSofie [id number] [place] [address] [place] Glucose [Mass/Vol] 113 mg/dL High 74-99 [facility] Comment on above: Order Comment: Antwan rowland Type: BLOOD SPECIMENOrdering Facility: [facility] Address: [address] [place] [address] Result Comment: The [place] Diabetes [employer] (ADA) provides guidance for cutoff values for fasting glucose and random glucose. The ADA defines fasting as no caloric intake for at least 8 hours. Fasting plasma glucose results between 100 to 125 mg/dL indicate increased risk for diabetes (prediabetes).Fasting plasma glucose results greater than or equal to 126 mg/dL meet the criteria for diagnosis of diabetes. In the absence of unequivocal hyperglycemia, results should be confirmed by repeat testing. In a patient with classic symptoms of hyperglycemia or hyperglycemic crisis, random plasma glucose results greater than or equal to 200 mg/dL meet the criteria for diagnosis of diabetes.Reference: Standards of Medical Care in Diabetes 2016, [place] [employer]. Diabetes Care. 2016.39(Suppl 1). Performed By: #### 2 4323-8 ####[facility] CENTERLENIN [id number] [place] [address] [place] Potassium [Moles/Vol] 3.7 mmol/L Normal 3.7-5.1 [facility] Comment on above: Order Comment: Speci men Type: BLOOD SPECIMENOrdering Facility: [facility] Address: [address] [place] [address] Performed By: #### 2 4323-8 ####[facility] HOSPITALNCLIA [id number] [place] [address] [place] Protein [Mass/Vol] 6.7 g/dL Normal 6.3-8.0 [facility] Comment on above: Order Comment: Speci men Type: BLOOD SPECIMENOrdering Facility: [facility] Address: [address] [place] [address] Performed By: #### 2 4323-8 ####[facility] CENTERLIA [id number] [place] [address] [place] Sodium [Moles/Vol] 139 mmol/L Normal 136-144 [facility] Comment on above: Order Comment: Speci men Type: BLOOD SPECIMENOrdering Facility: [facility] Address: [address] [place] [address] Performed By: #### 2 4323-8 ####[facility] ERA [id number] [place] [address] [place] Urea nitrogen [Mass/Vol] 18 mg/dL Normal 7-21 [facility] Comment on above: Order Comment: Speci men Type: BLOOD SPECIMENOrdering Facility: [facility] Address: [address] [place] [address] Performed By: #### 2 4323-8 ####[facility] HOSPITALNCLIA [id number] [place] [address] [place] 12 Lead EKGon 02-10-2024 12 Lead EKG [facility] Cardiovascular Services [address] [place] [address] 12 Lead EKG 02/10/24 1409 MR#: [id number] Acct: [id number] Name: MARIE BLAIR Rep #: [id number] : 1945 78 From: Kj Harper MD Attending Dr: Agus Oden DO Status: [facility] Ordering Dr: Christiano Emanuel MD Date: 02/10/24 Location: Sex: F C Admitted: Test Reason : PRE OP Blood Pressure : */* mmHG Vent. Rate : 79 BPM Atrial Rate : 79 BPM P-R Int : 142 ms QRS Dur : 72 ms QT Int : 372 ms P-R-T Axes : -9 69 55 degrees QTcB Int : 426 ms Sinus rhythm with occasional Premature ventricular complexes Otherwise normal ECG No previous ECGs available Confirmed by MEREDITH LEWIS, KJ ([id number]), commercial production editor VENESSA CARRANZA ([id number]) on 02/11/2024 2:15:16 PM Referred By: Joe Muller Confirmed By: KJ HARPER MD 02/11/24 1418 Date ____ Kj Harper MD CC: Dr. Christiano Emanuel MD; Dr. Joe Muller MD; Agus Oden DO Signed Normal [facility] ERCP Biliary/Pancreason 01-29 ERCP Biliary/Pancreas [facility] Imaging Services [address] [place], [place] [address] ERCP Biliary/Pancreas MR#: [id number] Acct: [id number] Name: MARIE BLAIR Rep #: [id number] : 1945 F 78 From: Martin watters MD PCP: Dr. Joe Muller MD Status: [facility] Study: ERCP Biliary/Pancreas Date of Exam: 02/10/24 Exam# [id number] Ordering Dr: Agus Oden DO [id number] STUDY: ERCP. REASON FOR EXAM: Female, 78 years old. Right upper quadrant pain. FLUOROSCOPY TIME (if supplied): ( 2 minutes and 37 seconds ) minutes/seconds. 24.97 mGy. TECHNIQUE: ERCP was performed by the sheep boner. Fluoroscopic services was provided. COMPARISON: None. ____ FINDINGS: Fluoroscopic services provided for ERCP. ____ RAD/ERCP Biliary/Pancreas IMPRESSION: Fluoroscopic services provided for ERCP. Electronically Signed: Martin James MD at 10:37 EST , CC: Dr. Joe Muller MD; Agus Oden DO Program Developer: Signed Normal [facility] ERCP Reporton 02-10-2024 ERCP Report [facility] Medical Records Department [address] [place] [address] ERCP Report MR#: [id number] Acct: [id number] Name: MARIE BLAIR Rep #: [id number] : 1945 78 From: Agus Oden DO PCP: Dr. Joe Muller MD Status:[facility] Patient Name: Marie Blair Procedure Date: 02/10/2024 3:17 PM Date of : 1945 Age: 78 Procedure: ERCP Indications: Bile duct stone(s), Stent removal, Biliary stent removal Providers: Agus Oden DO Medicines: Monitored Anesthesia Care Patient Profile: This is a 78 year old female. Refer to note in patient chart for documentation of history and physical. Patient has symptoms of chronic right upper quadrant abdominal pain and chronic jaundice. Complications: No immediate complications. Procedure: Pre-Anesthesia Assessment: - Prior to the procedure, a History and Physical was performed, and patient medications and allergies were reviewed. The patient is competent. The risks and benefits of the procedure and the sedation options and risks were discussed with the patient. All questions were answered and informed consent was obtained. Patient identification and proposed procedure were verified by the physician in the pre-procedure area. Mental Status Examination: alert and oriented. Airway Examination: normal oropharyngeal airway and neck mobility. Respiratory Examination: clear to auscultation. CV Examination: normal. Prophylactic Antibiotics: The patient does not require prophylactic antibiotics. Prior Anticoagulants: The patient has taken no anticoagulant or antiplatelet agents except for NSAID medication. ASA Grade Assessment: II - A patient with mild systemic disease. After reviewing the risks and benefits, the patient was deemed in satisfactory condition to undergo the procedure. The anesthesia plan was to use monitored anesthesia care (MAC). Immediately prior to administration of medications, the patient was re-assessed for adequacy to receive sedatives. The heart rate, respiratory rate, oxygen saturations, blood pressure, adequacy of pulmonary ventilation, and response to care were monitored throughout the procedure. The physical status of the patient was re-assessed after the procedure. After obtaining informed consent, the scope was passed under direct vision. Throughout the procedure, the patient's blood pressure, pulse, and oxygen saturations were monitored continuously. The Duodenoscope was introduced through the mouth, and advanced to the duodenum and used to inject contrast into the bile duct. The ERCP was accomplished without difficulty. The patient tolerated the procedure well. Scope In: 3:33:04 PM Scope Out: 4:15:32 PM Total Procedure Duration Time 0 hours 42 minutes 28 seconds Findings: The blast furnace supervisor film was normal. The esophagus was successfully intubated under direct vision. The scope was advanced to a normal major papilla in the descending duodenum without detailed examination of the pharynx, larynx and associated structures, and upper GI tract. The upper GI tract was grossly normal. A long 0.021 inch Jagwire was passed into the biliary tree. The short-nosed traction sphincterotome was passed over the guidewire and the bile duct was then deeply cannulated. Contrast was injected. I personally interpreted the bile duct images. There was brisk flow of contrast through the ducts. Image quality was adequate. Contrast extended to the main bile duct. Contrast extended to the bifurcation. Contrast extended to the hepatic ducts. Contrast extended to the entire biliary tree. Opacification of the entire opacified area, left main hepatic duct, left intrahepatic branches, right main hepatic duct, right intrahepatic branches and entire biliary tree was successful. The maximum diameter of the ducts was 13 mm. The lower third of the main bile duct contained a single localized stenosis 6 mm in length. The common hepatic duct, hepatic duct bifurcation, left main hepatic duct, right main hepatic duct and entire biliary tree were moderately dilated and diffusely dilated, with a stone causing an obstruction. The largest diameter was 15 mm. A 5 mm biliary sphincterotomy was made with a traction (standard) sphincterotome using ERBE electrocautery. There was no post-sphincterotomy bleeding. The biliary tree was swept with a 15 mm balloon starting at the upper third of the main bile duct, middle third of the main bile duct, lower third of the main duct, bifurcation, left intrahepatic duct(s), left main hepatic duct, right intrahepatic duct(s) and right main hepatic duct. Sludge was swept from the duct. All stones were removed. All stents were removed. One stent was removed from the biliary tree, the common hepatic duct and the left hepatic duct using a elizabeth forceps, Raptor grasping device and snare and (more content not included)... [facility] MR/POSTOP.[facility] 02-10-2024 MR/POSTOP.[facility] Medical Records Department [address] [place] [address] Anesthesia Postop Eval I 02/10/24 1633 MR#: [id number] Acct: [id number] Name: MARIE BLAIR Rep #: [id number] : 1945 78 From: Ruddy Marion PCP: Dr. Joe Muller MD Status:REG SD Y Race: C Location: [place] [address] Anesthesia: Postop Eval I Current Vital Signs Temperature: 97 F Pulse Rate: 71 Blood Pressure: 126/67 Respiratory Rate: 16 Pulse Ox: 99 Oxygen Delivery Method: Room Air Assessment Airway patent: Yes Spontaneous unlabored respirations: Yes Mental status: Awake nausea: No Vomiting: No Anesthesia Complication: No Fluid Hydration Crystalloid volume administer (ml): 500 Total IV fluid infused: 500 Progress Note Anesthesia document: Postop Eval 1 completed: Yes 02/10/24 1633 Date ____ Ruddy Marion Cosigner Signature: Date ____ CC: Signed Normal [facility] MR/GPNPREBU3ck 02-10-2024 MR/POSTOPAN2 [facility] Medical Records Department [address] [place] [address] Anesthesia Postop Eval II 02/10/241725 MR#: [id number] Acct: [id number] Name: MARIE BLAIR Rep #: [id number] : 1945 78 From: Dmitry Bradford MD PCP: Dr. Joe Muller MD Status:REG SDC Y Race: C Location: [address] Anesthesia Postop Eval I Sum Postop Eval Completion status Anesthesia document: Postop Eval 1 completed: Yes Anesthesia Postop Eval I Summary Anesthesia Postop Eval I Summary: Anesthesia Postop Eval I: Assessment Summary Airway patent Yes 02/10/24 16:33 [email or web address] Spontaneous unlabored Yes 02/10/24 16:33 [email or web address] respirations Mental status Awake 02/10/24 16:33 [email or web address] nausea No 02/10/24 16:33 [email or web address] Vomiting No 02/10/24 16:33 [email or web address] Anesthesia Postop Eval I: Fluid Summary Crystalloid volume administer 500 02/10/24 16:33 [email or web address] (ml) Colloids volume administered ( ml) Blood Product volume administered (ml) Total IV fluid infused 500 02/10/24 16:33 [email or web address] Anesthesia Postop Eval I: Summary Notes Anesthesia Complication No 02/10/24 16:33 [email or web address] Anesthesia Complication Comment: Post-operative progress note Anesthesia: Postop Eval II Evaluation Mental status: Awake Pain Level: 0 nausea: No Vomiting: No 02/10/241726 Date ____ Dmitry Bradford MD Cosigner Signature: Date ____ CC: Signed Normal [facility] Special Stain Group IIon Special Stain Group II Patient Age/Sex Location Account Attending Physician MARIE BLAIR 78/F EN [id number] Agus Oden DO Specimen: [id number] Received: 02/10/24 Status: LISS Agustin Num: [id number] Spec Type: Fluid Subm Dr: Agus Oden, DO HEADER OPERATION: ERCP with stent removal PRE-OP DIAGNOSIS: Gallbladder cancer TISSUE SUBMITTED: Biliary stent for cytology DIAGNOSIS CYTOLOGY Biliary stent fluid for cytology (cytospin and cellblock): Negative for malignant cells. AM.mr 02/12/2024 CYTOLOGY STUDY Slides are reviewed. CYTOLOGY GROSS Received is 1 black stent measuring 12.0cm in length labeled with the patient's name and and designated per the requisition as Biliary stent. Submitted for cytology preparation including cell block. Mr 02/11/2024 TC:5 CPT: 71689,80081 Signed (signature on file) Dr. Juan Ramon Garcia, DO 02/12/24 1136 Normal [facility] Comment on above: Performed By: #### P SSII #### [facility] [address] [place] [address]. [place], [address] CBC W Auto Differential pane l (Bld)on 01-30-2024 Basophils (Bld) [#/Vol] 0.03 10*3/uL Normal <0.11 [facility] Comment on above: Order Comment: Antwan rowland Type: BLOOD SPECIMENOrdering Facility: [facility] Address: [address] [place] [address] Performed By: #### 5 7021-8 ####[facility] [id number] [place] [address] [place] Basophils/100 WBC (Bld) 0.4 % Normal [facility] Comment on above: Order Comment: Antwan rowland Type: BLOOD SPECIMENOrdering Facility: [facility] Address: [address] [place] [address] Performed By: #### 5 7021-8 ####[facility] CENTERLIA [id number] [place] [address] [place] Differential cell count method Nom (Bld) Auto Normal [facility] Comment on above: Order Comment: Speci men Type: BLOOD SPECIMENOrdering Facility: [facility] Address: [address] [place] [address] Performed By: #### 5 7021-8 ####[facility] [id number] [place] [address] [place] Eosinophils (Bld) [#/Vol] 0.06 10*3/uL Normal <0.46 [facility] Comment on above: Order Comment: Speci men Type: BLOOD SPECIMENOrdering Facility: [facility] Address: [address] [place] [address] Performed By: #### 5 7021-8 ####[facility] [id number] [place] [address] [place] Eosinophils/100 WBC (Bld) 0.8 % Normal [facility] Comment on above: Order Comment: Speci men Type: BLOOD SPECIMENOrdering Facility: [facility] Address: [address] [place] [address] Performed By: #### 5 7021-8 ####[facility] [id number] [place] [address] [place] Erythrocyte distribution width (RBC) [Ratio] 15.8 % High 11.5-15.0 [facility] Comment on above: Order Comment: Speci men Type: BLOOD SPECIMENOrdering Facility: [facility] Address: [address] [place] [address] Performed By: #### 5 7021-8 ####[facility] HOSPITALNCLIA [id number] [place] [address] [place] Hematocrit (Bld) [Volume fraction] 36.0 % Normal 36.0-46.0 [facility] Comment on above: Order Comment: Speci men Type: BLOOD SPECIMENOrdering Facility: [facility] Address: [address] [place] [address] Performed By: #### 5 7021-8 ####[facility] HOSPITALNCLAKEVIEW H[facility] [id number] [place] [address] [place] Hemoglobin (Bld) [Mass/Vol] 11.2 g/dL Low 11.5-15.5 [facility] Comment on above: Order Comment: Speci men Type: BLOOD SPECIMENOrdering Facility: [facility] Address: [address] [place] [address] Performed By: #### 5 7021-8 ####[facility] HOSPITALNCLAKEVIEW HOSPITAL [id number] [place] [address] [place] Immature granulocytes (Bld) [#/Vol] 0.03 10*3/uL Normal <0.10 [facility] Comment on above: Order Comment: Speci men Type: BLOOD SPECIMENOrdering Facility: [facility] Address: [address] [place] [address] Performed By: #### 5 7021-8 ####[facility] HOSPITALNCA [id number] [place] [address] [place] Immature granulocytes/100 WBC (Bld) 0.4 % Normal [facility] Comment on above: Order Comment: Speci men Type: BLOOD SPECIMENOrdering Facility: [facility] Address: [address] [place] [address] Performed By: #### 5 7021-8 ####[facility] HOSPITALNCA [id number] [place] [address] [place] Lymphocytes (Bld) [#/Vol] 3.06 10*3/uL Normal 1.00-4.00 [facility] Comment on above: Order Comment: Speci men Type: BLOOD SPECIMENOrdering Facility: [facility] Address: [address] [place] [address] Performed By: #### 5 7021-8 ####[facility] SHANDRAMichaelNCLIA [id number] [address] STATES [facility] Lymphocytes/100 WBC (Bld) 41.7 % Normal [facility] Comment on above: Order Comment: Speci men Type: BLOOD SPECIMENOrdering Facility: [facility] Address: [address] [place] [address] Performed By: #### 5 7021-8 ####[facility] SHANDRAROWENANCLIA [id number] [place] [address] [place] MCH (RBC) [Entitic mass] 28.8 pg Normal 26.0-34.0 [facility] Comment on above: Order Comment: Speci men Type: BLOOD SPECIMENOrdering Facility: [facility] Address: [address] [place] [address] Performed By: #### 5 7021-8 ####[facility] HOSPITALNCLENINA [id number] [place] [address] [place] MCHC (RBC) [Mass/Vol] 31.1 g/dL Normal 30.5-36.0 [facility] Comment on above: Order Comment: Speci men Type: BLOOD SPECIMENOrdering Facility: [facility] Address: [address] [place] [address] Performed By: #### 5 7021-8 ####[facility] HOSPITALNCLIA [id number] [place] [address] [place] MCV (RBC) [Entitic vol] 92.5 fL Normal 80.0-100.0 [facility] Comment on above: Order Comment: Speci men Type: BLOOD SPECIMENOrdering Facility: [facility] Address: [address] [place] [address] Performed By: #### 5 7021-8 ####[facility] HOSPITALNCLIA [id number] [place] [address] [place] Monocytes (Bld) [#/Vol] 0.70 10*3/uL Normal <0.87 [facility] Comment on above: Order Comment: Speci men Type: BLOOD SPECIMENOrdering Facility: [facility] Address: [address] [place] [address] Performed By: #### 5 7021-8 ####[facility] ERA [id number] [place] [address] [place] Monocytes/100 WBC (Bld) 9.5 % Normal [facility] Comment on above: Order Comment: Speci men Type: BLOOD SPECIMENOrdering Facility: [facility] Address: [address] [place] [address] Performed By: #### 5 7021-8 ####[facility] [id number] [place] [address] [place] Neutrophils (Bld) [#/Vol] 3.45 10*3/uL Normal 1.45-7.50 [facility] Comment on above: Order Comment: Speci men Type: BLOOD SPECIMENOrdering Facility: [facility] Address: [address] [place] [address] Performed By: #### 5 7021-8 ####[facility] CENTERLIA [id number] [place] [address] [place] Neutrophils/100 WBC (Bld) 47.2 % Normal [facility] Comment on above: Order Comment: Speci men Type: BLOOD SPECIMENOrdering Facility: [facility] Address: [address] [place] [address] Performed By: #### 5 7021-8 ####[facility] MED[facility] CENTERLIA [id number] [place] [address] [place] Nucleated RBC (Bld) [#/Vol] 10*3/uL Normal <0.01 [facility] Comment on above: Order Comment: Speci men Type: BLOOD SPECIMENOrdering Facility: [facility] Address: [address] [place] [address] Performed By: #### 5 7021-8 ####[facility] SHANDRAROWENANCSANDRA [id number] [place] [address] [place] Nucleated RBC/100 WBC (Bld) [Ratio] 0.0 /100 WBC Normal [facility] Comment on above: Order Comment: Speci men Type: BLOOD SPECIMENOrdering Facility: [facility] Address: [address] [place] [address] Performed By: #### 5 7021-8 ####[facility] HOSPITALNCLENINA [id number] [place] [address] [place] Platelet mean volume (Bld) [Entitic vol] 9.5 fL Normal 9.0-12.7 [facility] Comment on above: Order Comment: Speci men Type: BLOOD SPECIMENOrdering Facility: [facility] Address: [address] [place] [address] Performed By: #### 5 7021-8 ####[facility] HOSPITALNCLIA [id number] [place] [address] [place] Platelets (Bld) [#/Vol] 357 10*3/uL Normal 150-400 [facility] Comment on above: Order Comment: Speci men Type: BLOOD SPECIMENOrdering Facility: [facility] Address: [address] [place] [address] Performed By: #### 5 7021-8 ####[facility] HOSPITALNCLIA [id number] [place] [address] [place] RBC (Bld) [#/Vol] 3.89 10*6/uL Low 3.90-5.20 [facility] Comment on above: Order Comment: Speci men Type: BLOOD SPECIMENOrdering Facility: [facility] Address: [address] [place] [address] Performed By: #### 5 7021-8 ####[facility] HOSPITALNCSANDRA [id number] [place] [address] [place] WBC (Bld) [#/Vol] 7.33 10*3/uL Normal 3.70-11.00 [facility] Comment on above: Order Comment: Speci men Type: BLOOD SPECIMENOrdering Facility: [facility] Address: [address] [place] [address] Performed By: #### 5 7021-8 ####[facility] HOSPITALNCSofie [id number] [place] [address] [place] CNOVSPon 01-30-2024 CNOVSP Normal [facility] metabolic 2000 panelon 01-30-2024 Albumin [Mass/Vol] 3.8 g/dL Low 3.9-4.9 [facility] Comment on above: Order Comment: Speci men Type: BLOOD SPECIMENOrdering Facility: [facility] Address: [address] [place] [address] Performed By: #### 2 4323-8 ####[facility] HOSPITALNCLIA [id number] [place] [address] [place] ALP [Catalytic activity/Vol] 62 U/L Normal 34-123 [facility] Comment on above: Order Comment: Speci men Type: BLOOD SPECIMENOrdering Facility: [facility] Address: [address] [place] [address] Performed By: #### 2 4323-8 ####[facility] HOSPITALNCLIA [id number] [place] [address] [place] ALT [Catalytic activity/Vol] 12 U/L Normal 7-38 [facility] Comment on above: Order Comment: Speci men Type: BLOOD SPECIMENOrdering Facility: [facility] Address: [address] [place] [address] Performed By: #### 2 4323-8 ####[facility] MILLTOWNCLIA [id number] [place] [address] [place] Anion gap [Moles/Vol] 11 mmol/L Normal 8-15 [facility] Comment on above: Order Comment: Speci men Type: BLOOD SPECIMENOrdering Facility: [facility] Address: [address] [place] [address] Performed By: #### 2 4323-8 ####[facility] MILLTOWNCLIA [id number] [place] [address] [place] AST [Catalytic activity/Vol] 20 U/L Normal 13-35 [facility] Comment on above: Order Comment: Speci men Type: BLOOD SPECIMENOrdering Facility: [facility] Address: [address] [place] [address] Performed By: #### 2 4323-8 ####[facility] MILLTOWNCLIA [id number] [place] [address] [place] Bilirubin [Mass/Vol] 0.4 mg/dL Normal 0.2-1.3 [facility] Comment on above: Order Comment: Speci men Type: BLOOD SPECIMENOrdering Facility: [facility] Address: [address] [place] [address] Performed By: #### 2 4323-8 ####[facility] MILLTOWNCLIA [id number] [place] [address] [place] Calcium [Mass/Vol] 9.4 mg/dL Normal 8.5-10.2 [facility] Comment on above: Order Comment: Speci men Type: BLOOD SPECIMENOrdering Facility: [facility] Address: [address] [place] [address] Performed By: #### 2 4323-8 ####[facility] HOSPITALNCLIA [id number] [address] [place] Chloride [Moles/Vol] 101 mmol/L Normal 98-107 [facility] Comment on above: Order Comment: Speci men Type: BLOOD SPECIMENOrdering Facility: [facility] [facility] Address: [address] [place] [address] Performed By: #### 2 4323-8 ####[facility] [id number] [place] [address] [place] CO2 [Moles/Vol] 24 mmol/L Normal 22-30 [facility] Comment on above: Order Comment: Speci men Type: BLOOD SPECIMENOrdering Facility: [facility] Address: [address] [place] [address] Performed By: #### 2 4323-8 ####[facility] [id number] [address] STATES OF [facility] Creatinine [Mass/Vol] 0.70 mg/dL Normal 0.58-0.96 [facility] Comment on above: Order Comment: Speci men Type: BLOOD SPECIMENOrdering Facility: [facility] Address: [address] [place] [address] Performed By: #### 2 4323-8 ####[facility] [id number] [address] OF [facility] Creatinine and Glomerular filtration rate.predicted panel (S/P/Bld) 89 mL/min/1.73m??? Normal >=60 [facility] Comment on above: Order Comment: Speci men Type: BLOOD SPECIMENOrdering Facility: [facility] Address: [address] [place] [address] Result Comment: Rosana mated Glomerular Filtration Rate (eGFR) is calculated using the 2020 CKD-EPI creatinine equation. This equation utilizes serum creatinine, sex, and age as parameters. The creatinine assay has traceable calibration to isotope dilution-mass spectrometry. Refer to KDIGO guidelines for clinical interpretation. In patients with unstable renal function, e.g. those with acute kidney injury, the eGFR may not accurately reflect actual GFR. Performed By: #### 2 4323-8 ####[facility] KANDISWNCLIA [id number] [place] [address] [place] Glucose [Mass/Vol] 104 mg/dL High 74-99 [facility] Comment on above: Order Comment: Speci men Type: BLOOD SPECIMENOrdering Facility: [facility] Address: [address] [place] [address] Result Comment: The [place] Diabetes Association (ADA) provides guidance for cutoff values for fasting glucose and random glucose. The ADA defines fasting as no caloric intake for at least 8 hours. Fasting plasma glucose results between 100 to 125 mg/dL indicate increased risk for diabetes (prediabetes).Fasting plasma glucose results greater than or equal to 126 mg/dL meet the criteria for diagnosis of diabetes. In the absence of unequivocal hyperglycemia, results should be confirmed by repeat testing. In a patient with classic symptoms of hyperglycemia or hyperglycemic crisis, random plasma glucose results greater than or equal to 200 mg/dL meet the criteria for diagnosis of diabetes.Reference: Standards of Medical Care in Diabetes 2016, [place] Diabetes Association. Diabetes Care. 2016.39(Suppl 1). Performed By: #### 2 4323-8 ####[facility] SHANDRAWNCLIA [id number] [place] [address] [place] Potassium [Moles/Vol] 4.6 mmol/L Normal 3.7-5.1 [facility] Comment on above: Order Comment: Speci men Type: BLOOD SPECIMENOrdering Facility: [facility] Address: [address] [place] [address] Performed By: #### 2 4323-8 ####[facility] SHANDRAROWENANCLIA [id number] [place] [address] [place] Protein [Mass/Vol] 6.6 g/dL Normal 6.3-8.0 [facility] Comment on above: Order Comment: Speci men Type: BLOOD SPECIMENOrdering Facility: [facility] Address: [address] [place] [address] Performed By: #### 2 4323-8 ####[facility]ITAL[facility] [id number] [place] [address] [place] Sodium [Moles/Vol] 136 mmol/L Normal 136-144 [facility] Comment on above: Order Comment: Speci men Type: BLOOD SPECIMENOrdering Facility: [facility] Address: [address] [place] [address] Performed By: #### 2 4323-8 ####[facility]ITAL[facility] [id number] [place] [address] [place] Urea nitrogen [Mass/Vol] 19 mg/dL Normal 7-21 [facility] Comment on above: Order Comment: Speci men Type: BLOOD SPECIMENOrdering Facility: [facility] Address: [address] [place] [address] Performed By: #### 2 4323-8 ####[facility] [id number] [place] [address] [place] CNPNon 01-19-2024 CNPN Normal [facility] CNPNon 01-07-2024 CNPN Normal [facility] Gastroenterology Visit Repor ton 01-06-2024 Gastroenterology Visit Report [facility] Gastroenterology [address] [facility] [place] [place] [address] OFFICE VISIT Date of Service: 01/06/24 MR#: [id number] Acct: [id number] Name: ROSSYMARIE Sofie Rep #: [id number] : 1945 Provider: Augs Oden DO Age/Sex: 78/F Location[place] [facility] Status: Signed Intake Vital Signs 11/18/23 08:55 Height 5 ft 8 in Intake Visit Reasons: Stent removal pre-op Allergies No Known Allergies Allergy (Verified 11/18/23 08:55) Medications ???Medication ???Instructions ???Recorded ???Confirmed ???Type lisinopril 20 mg tablet 10 mg PO DAILY BLOOD PRESSURE 11/14/17 01/06/24 History atorvastatin 20 mg tablet 20 mg PO DAILY CHOLESTEROL 11/18/23 01/06/24 History Have you fallen in the past year?: No PFS Medical History (Updated 01/06/24 @ 09:[address] Goldsmith Friend, DO) History of TIA (transient ischemic attack) Squamous cell carcinoma in situ Atherosclerosis of both carotid arteries Pure hypercholesterolemia Benign essential HTN Surgical History S/P appendectomy History of squamous cell carcinoma excision Family History (Updated 11/18/23 @ 15:[address] Marah Sebastian MD) Mother CVA (cerebral vascular accident) Hypertension Father CAD (coronary artery disease) Hypertension Heart disease Myocardial infarction Social History household members: spouse Smoking Status: Never smoker alcohol intake: never substance use type: does not use additional social history: DOES USE ASPIRIN DOES NOT USE IBUPROFEN HPI HPI Details: MARIE BLAIR, is a 78 F who presents to the office today for for an initial visit. She presented to [facility] with painful jaundice. She has been transferred to [facility] For the evaluation of right upper quadrant pain and jaundice. Imaging was concerning for gallbladder cancer and choledocholithiasis. She underwent ERCP and choledocholithiasis was removed at the sphincterotomy was achieved and multiple stones were removed. She had a pancreatic stent placed for post ERCP pancreatitis and she had a biliary stent placed for a stricture in the bile duct. She also went for a cholecystectomy. 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 Her biochemical profile shows a white blood cell count of 6.9, hemoglobin 11.9, platelet count of 697. She has no neutrophilic shift. Her LFTs are as follows bilirubin is 0.3, a AST of 19, ALT of 26 and alkaline phosphatase of 116 BUN/creatinine 15/.68. She comes in today because she noticed her stent is removed. ROS Const Constitutional: No fatigue, fever(s) or weight change ENT ENT: No difficulty swallowing Gastro GI: No abdominal pain, belching, bloating, change in bowel habits, change in stool character, coffee ground emesis, constipation, cramping, diarrhea, heartburn, difficulty swallowing, feeling full early, excessive flatus, incontinent of stools, Vomiting blood/hematemesis, Blood in stool, loose stools, Black,tarry stools, nausea/dyspepsia, pain with swallowing, vomiting or other Musc Musculoskeletal: Positive for back pain; No joint pain Skin Skin: No yellowing of the eye or itchy eyes Psych Psychiatric: No anxiety and No depression Endo Endocrine: No fatigue or weight change Aller/Imm Allergy/Immunologic: No itchy eyes Nickolas/Lymp Hematologic/Lymphatic: No easy bleeding or easy bruising Exam Const General: cooperative and comfortable Nutritional Appearance: average body habitus and well nourished HENMT Head: normal to inspection Ears: hearing grossly normal bilaterally Nose: external nose normal Face and sinus: normal facial exam Mouth: oral mucosae normal Throat: posterior oropharynx normal Eyes General: appearance normal, both eyes and all related structures Neck Neck: normal visual inspection Chest Chest palpation inspection: normal inspection of the chest and normal palpation of entire chest wall Resp Effort Inspection: normal respiratory effort Auscultation: Bilateral: Clear to Auscultation Cardio Palpation: normal PMI Rate: regular rate Rhythm: regular rhythm GI Inspection: normal to inspection Auscultation: normal bowel sounds Percussion: normal to percussion Palpation: no hepatosplenomegaly Skin General: no rashes or lesions noted Neuro General: patient alert Extrem General: normal to inspection Psych Affect: normal affect Assessment and Plan Assessment and Plan (1) Gallbladder cancer: Status: Acute Plan: 78-year-old with unfortunate past medical history of gallbladder cancer status post cholecystectomy and multiple small bowel resections. She will need to und (more content not included)... Normal [facility] CNOVSPon 01-05-2024 CNOVSP Normal [facility] CNOVon 12-26-2023 CNOV Normal [facility] CNPNon 12-26-2023 CNPN Normal [facility] CNPNon 12-19-2023 CNPN Normal [facility] Comprehensive metabolic 2000 panelon 12-17-2023 Albumin [Mass/Vol] 3.8 g/dL Low 3.9 - 4.9 g/dL [facility] ALP [Catalytic activity/Vol] 116 U/L 34 - 123 U/L [facility] ALT [Catalytic activity/Vol] 19 U/L 7 - 38 U/L [facility] Anion gap [Moles/Vol] 14 mmol/L 8 - 15 mmol/L [facility] AST [Catalytic activity/Vol] 26 U/L 13 - 35 U/L [facility] Bilirubin [Mass/Vol] 0.3 mg/dL 0.2 - 1.3 mg/dL [facility] Calcium [Mass/Vol] 10.2 mg/dL 8.5 - 10. 2 mg/dL [facility] Chloride [Moles/Vol] 99 mmol/L 98 - 107 mmol/L [facility] CO2 [Moles/Vol] 25 mmol/L 22 - 30 mmol/L [facility] Creatinine [Mass/Vol] 0.68 mg/dL 0.58 - 0.96 mg/dL [facility] GFR/1.73 sq M.predicted among non-blacks MDRD (S/P/Bld) [Vol rate/Area] 89 mL/min/{1.73_m2} - PINF [facility] Comment on above: Estimated Glomerular Filtration Rate (eGFR) is calculated using the 2020 CKD-EPI creatinine equation. This equation utilizes serum creatinine, sex, and age as parameters. The creatinine assay has traceable calibration to isotope dilution-mass spectrometry. Refer to KDIGO guidelines for clinical interpretation. In patients with unstable renal function, e.g. those with acute kidney injury, the eGFR may not accurately reflect actual GFR. Glucose [Mass/Vol] 110 mg/dL High 74 - 99 mg/dL [facility] Comment on above: The [place] Diabete s Association (ADA) provides guidance for cutoff values for fasting glucose and random glucose. The ADA defines fasting as no caloric intake for at least 8 hours. Fasting plasma glucose results between 100 to 125 mg/dL indicate increased risk for diabetes (prediabetes). Fasting plasma glucose results greater than or equal to 126 mg/dL meet the criteria for diagnosis of diabetes. In the absence of unequivocal hyperglycemia, results should be confirmed by repeat testing. In a patient with classic symptoms of hyperglycemia or hyperglycemic crisis, random plasma glucose results greater than or equal to 200 mg/dL meet the criteria for diagnosis of diabetes. Reference: Standards of Medical Care in Diabetes 2016, [place] Diabetes Association. Diabetes Care. 2016.39(Suppl 1). Interpretation and review of laboratory results Abnormal [facility] Potassium [Moles/Vol] 4.6 mmol/L 3.7 - 5.1 mmol/L [facility] Protein [Mass/Vol] 8.2 g/dL High 6.3 - 8.0 g/dL [facility] Sodium [Moles/Vol] 138 mmol/L 136 - 144 mmol/L [facility] Urea nitrogen [Mass/Vol] 15 mg/dL 7 - 21 mg/dL [facility] FERRITINon 12-17-2023 Ferritin [Mass/Vol] 483.0 ng/mL High 14.7 - 205.1 ng/mL [facility] FOLATE, SERUMon 12-17-2023 Folate [Mass/Vol] 7.7 ng/mL 4.7 - PINF ng/mL [facility] Ferritin [Mass/Vol]on 2023 Interpretation and review of laboratory results Abnormal [facility] Iron and Iron binding capaci ty panelon 12-17-2023 Interpretation and review of laboratory results Abnormal [facility] Iron [Mass/Vol] 29 ug/dL Low 41 - 186 ug/dL [facility] Iron binding capacity [Mass/Vol] 257 ug/dL 232 - 386 ug/dL [facility] Iron/TIBC [Molar ratio] 11.3 % Low 15.0 - 57.0 % [facility] No Panel Informationon 12-16 Interpretation and review of laboratory results Normal [facility] VITAMIN B12on 12-17-2023 Cobalamin (Vitamin B12) [Mass/Vol] 569 pg/mL 232 - 1245 pg/mL [facility] CBC W Auto Differential pane l (Bld)on 12-16-2023 Basophils (Bld) [#/Vol] 0.05 10*3/uL [facility] Basophils/100 WBC (Bld) 0.7 % [facility] Differential cell count method Nom (Bld) Auto [facility] Eosinophils (Bld) [#/Vol] 0.06 10*3/uL [facility] Eosinophils/100 WBC (Bld) 0.9 % [facility] Erythrocyte distribution width (RBC) [Ratio] 16.5 % High 11.5 - 15.0 % [facility] Hematocrit (Bld) [Volume fraction] 38.6 % 36.0 - 46.0 % [facility] Hemoglobin (Bld) [Mass/Vol] 11.9 g/dL 11.5 - 15.5 g/dL [facility] Immature granulocytes (Bld) [#/Vol] 0.03 10*3/uL [facility] Immature granulocytes/100 WBC (Bld) 0.4 % [facility] Interpretation and review of laboratory results Abnormal [facility] Lymphocytes (Bld) [#/Vol] 2.22 10*3/uL [facility] Lymphocytes/100 WBC (Bld) 31.9 % [facility] MCH (RBC) [Entitic mass] 28.4 pg 26.0 - 34.0 pg [facility] MCHC (RBC) [Mass/Vol] 30.8 g/dL 30.5 - 36.0 g/dL [facility] MCV (RBC) [Entitic vol] 92.1 fL 80.0 - 100.0 fL [facility] Monocytes (Bld) [#/Vol] 0.93 10*3/uL High [facility] Monocytes/100 WBC (Bld) 13.4 % [facility] Neutrophils (Bld) [#/Vol] 3.67 10*3/uL [facility] Neutrophils/100 WBC (Bld) 52.7 % [facility] Nucleated RBC (Bld) [#/Vol] [facility] Nucleated RBC/100 WBC (Bld) [Ratio] 0.0 % /100 WBC [facility] Platelet mean volume (Bld) [Entitic vol] 10.1 fL 9.0 - 12.7 fL [facility] Platelets (Bld) [#/Vol] 697 10*3/uL High [facility] RBC (Bld) [#/Vol] 4.19 10*6/uL 3.90 - 5.20 m/uL [facility] WBC (Bld) [#/Vol] 6.96 10*3/uL [facility] Basophils (Bld) [#/Vol] 0.05 10*3/uL Normal <0.11 [facility] Comment on above: Order Comment: Speci men Type: BLOOD SPECIMENOrdering Facility: [facility] Address: [address] [place] [address] Performed By: #### 5 7021-8 ####[facility] LABCLIA [id number] [address] [place] Basophils/100 WBC (Bld) 0.7 % Normal [facility] Comment on above: Order Comment: Speci men Type: BLOOD SPECIMENOrdering Facility: [facility] Address: [address] [place] [address] Performed By: #### 5 7021-8 ####[facility] LABCLIA [id number] [place] [address] [place] Differential cell count method Nom (Bld) Auto Normal [facility] Comment on above: Order Comment: Speci men Type: BLOOD SPECIMENOrdering Facility: [facility] Address: [address] [place] [address] Performed By: #### 5 7021-8 ####[facility] LABIA [id number] [place] [address] [place] Eosinophils (Bld) [#/Vol] 0.06 10*3/uL Normal <0.46 [facility] Comment on above: Order Comment: Speci men Type: BLOOD SPECIMENOrdering Facility: [facility] Address: [address] [place] [address] Performed By: #### 5 7021-8 ####[facility] LABIA [id number] [place] [address] [place] Eosinophils/100 WBC (Bld) 0.9 % Normal [facility] Comment on above: Order Comment: Speci men Type: BLOOD SPECIMENOrdering Facility: [facility] Address: [address] [place] [address] Performed By: #### 5 7021-8 ####[facility] LABIA [id number] [place] [address] [place] Erythrocyte distribution width (RBC) [Ratio] 16.5 % High 11.5-15.0 [facility] Comment on above: Order Comment: Speci men Type: BLOOD SPECIMENOrdering Facility: [facility] Address: [address] [place] [address] Performed By: #### 5 7021-8 ####[facility] LABCLIA [id number] [place] [address] [place] Hematocrit (Bld) [Volume fraction] 38.6 % Normal 36.0-46.0 [facility] Comment on above: Order Comment: Speci men Type: BLOOD SPECIMENOrdering Facility: [facility] Address: [address] [place] [address] Performed By: #### 5 7021-8 ####[facility] LABCLIA [id number] [place] [address] [place] Hemoglobin (Bld) [Mass/Vol] 11.9 g/dL Normal 11.5-15.5 [facility] Comment on above: Order Comment: Speci men Type: BLOOD SPECIMENOrdering Facility: [facility] Address: [address] [place] [address] Performed By: #### 5 7021-8 ####[facility] LABIA [id number] [place] [address] [place] Immature granulocytes (Bld) [#/Vol] 0.03 10*3/uL Normal <0.10 [facility] Comment on above: Order Comment: Speci men Type: BLOOD SPECIMENOrdering Facility: [facility] Address: [address] [place] [address] Performed By: #### 5 7021-8 ####[facility] LABCLIA [id number] [place] [address] [place] Immature granulocytes/100 WBC (Bld) 0.4 % Normal [facility] Comment on above: Order Comment: Speci men Type: BLOOD SPECIMENOrdering Facility: [facility] Address: [address] [place] [address] Performed By: #### 5 7021-8 ####[facility] LABCLIA [id number] [place] [address] [place] Lymphocytes (Bld) [#/Vol] 2.22 10*3/uL Normal 1.00-4.00 [facility] Comment on above: Order Comment: Speci men Type: BLOOD SPECIMENOrdering Facility: [facility] Address: [address] [place] [address] Performed By: #### 5 7021-8 ####[facility] LABIA [id number] [place] [address] [place] Lymphocytes/100 WBC (Bld) 31.9 % Normal [facility] Comment on above: Order Comment: Speci men Type: BLOOD SPECIMENOrdering Facility: [facility] Address: [address] [place] [address] Performed By: #### 5 7021-8 ####[facility] LABIA [id number] [place] [address] [place] MCH (RBC) [Entitic mass] 28.4 pg Normal 26.0-34.0 [facility] Comment on above: Order Comment: Speci men Type: BLOOD SPECIMENOrdering Facility: [facility] Address: [address] [place] [address] Performed By: #### 5 7021-8 ####[facility] LABIA [id number] [place] [address] [place] MCHC (RBC) [Mass/Vol] 30.8 g/dL Normal 30.5-36.0 [facility] Comment on above: Order Comment: Speci men Type: BLOOD SPECIMENOrdering Facility: [facility] Address: [address] [place] [address] Performed By: #### 5 7021-8 ####[facility] LABIA [id number] [place] [address] [place] MCV (RBC) [Entitic vol] 92.1 fL Normal 80.0-100.0 [facility] Comment on above: Order Comment: Speci men Type: BLOOD SPECIMENOrdering Facility: [facility] Address: [address] [place] [address] Performed By: #### 5 7021-8 ####[facility] LABCLIA [id number] [place] [address] [place] Monocytes (Bld) [#/Vol] 0.93 10*3/uL High <0.87 [facility] Comment on above: Order Comment: Speci men Type: BLOOD SPECIMENOrdering Facility: [facility] Address: [address] [place] [address] Performed By: #### 5 7021-8 ####[facility] LABCLIA [id number] [place] [address] [place] Monocytes/100 WBC (Bld) 13.4 % Normal [facility] Comment on above: Order Comment: Speci men Type: BLOOD SPECIMENOrdering Facility: [facility] Address: [address] [place] [address] Performed By: #### 5 7021-8 ####[facility] LABCLIA [id number] [place] [address] [place] Neutrophils (Bld) [#/Vol] 3.67 10*3/uL Normal 1.45-7.50 [facility] Comment on above: Order Comment: Speci men Type: BLOOD SPECIMENOrdering Facility: [facility] Address: [address] [place] [address] Performed By: #### 5 7021-8 ####[facility] LABCLIA [id number] [place] [address] [place] Neutrophils/100 WBC (Bld) 52.7 % Normal [facility] Comment on above: Order Comment: Speci men Type: BLOOD SPECIMENOrdering Facility: [facility] Address: [address] [place] [address] Performed By: #### 5 7021-8 ####[facility] LABCLIA [id number] [place] [address] [place] Nucleated RBC (Bld) [#/Vol] 10*3/uL Normal <0.01 [facility] Comment on above: Order Comment: Speci men Type: BLOOD SPECIMENOrdering Facility: [facility] Address: [address] [place] [address] Performed By: #### 5 7021-8 ####[facility] LABCLIA [id number] [place] [address] [place] Nucleated RBC/100 WBC (Bld) [Ratio] 0.0 /100 WBC Normal [facility] Comment on above: Order Comment: Speci men Type: BLOOD SPECIMENOrdering Facility: [facility] Address: [address] [place] [address] Performed By: #### 5 7021-8 ####[facility] LABIA [id number] [place] [address] [place] Platelet mean volume (Bld) [Entitic vol] 10.1 fL Normal 9.0-12.7 [facility] Comment on above: Order Comment: Speci men Type: BLOOD SPECIMENOrdering Facility: [facility] Address: [address] [place] [address] Performed By: #### 5 7021-8 ####[facility] LABIA [id number] [place] [address] [place] Platelets (Bld) [#/Vol] 697 10*3/uL High 150-400 [facility] Comment on above: Order Comment: Speci men Type: BLOOD SPECIMENOrdering Facility: [facility] Address: [address] [place] [address] Performed By: #### 5 7021-8 ####[facility] LABIA [id number] [place] [address] [place] RBC (Bld) [#/Vol] 4.19 10*6/uL Normal 3.90-5.20 [facility] Comment on above: Order Comment: Speci men Type: BLOOD SPECIMENOrdering Facility: [facility] Address: [address] [place] [address] Performed By: #### 5 7021-8 ####[facility] LABCLIA [id number] [address] [address] [place] WBC (Bld) [#/Vol] 6.96 10*3/uL Normal 3.70-11.00 [facility] Comment on above: Order Comment: Speci men Type: BLOOD SPECIMENOrdering Facility: [facility] Address: [address] [place] [address] Performed By: #### 5 7021-8 ####[facility] LABIA [id number] [place] [address] [place] CNOVSPon 12-16-2023 CNOVSP Normal [facility] metabolic 2000 panelon 12-16-2023 Albumin [Mass/Vol] 3.8 g/dL Low 3.9-4.9 [facility] Comment on above: Order Comment: Speci men Type: BLOOD SPECIMENOrdering Facility: [facility] Address: [address] [place] [address] Performed By: #### 2 4323-8 ####[facility] LABIA [id number] [place] [id number] [place] ALP [Catalytic activity/Vol] 116 U/L Normal 34-123 [facility] Comment on above: Order Comment: Speci men Type: BLOOD SPECIMENOrdering Facility: [facility] Address: [address] [place] [address] Performed By: #### 2 4323-8 ####[facility] LABIA [id number] [place] [address] [place] ALT [Catalytic activity/Vol] 19 U/L Normal 7-38 [facility] Comment on above: Order Comment: Speci men Type: BLOOD SPECIMENOrdering Facility: [facility] Address: [address] [place] [address] Performed By: #### 2 4323-8 ####[facility] LABCLIA [id number] [place] [address] [place] Anion gap [Moles/Vol] 14 mmol/L Normal 8-15 [facility] Comment on above: Order Comment: Speci men Type: BLOOD SPECIMENOrdering Facility: [facility] Address: [address] [place] [address] Performed By: #### 2 4323-8 ####[facility] LABCLIA [id number] [place] [address] [place] AST [Catalytic activity/Vol] 26 U/L Normal 13-35 [facility] Comment on above: Order Comment: Speci men Type: BLOOD SPECIMENOrdering Facility: [facility] Address: [address] [place] [address] Performed By: #### 2 4323-8 ####[facility] LABCLIA [id number] [place] [address] [place] Bilirubin [Mass/Vol] 0.3 mg/dL Normal 0.2-1.3 [facility] Comment on above: Order Comment: Speci men Type: BLOOD SPECIMENOrdering Facility: [facility] Address: [address] [place] [address] Performed By: #### 2 4323-8 ####[facility] LABCLIA [id number] [place] [address] [place] Calcium [Mass/Vol] 10.2 mg/dL Normal 8.5-10.2 [facility] Comment on above: Order Comment: Speci men Type: BLOOD SPECIMENOrdering Facility: [facility] Address: [address] [place] [address] Performed By: #### 2 4323-8 ####[facility] LABCLIA [id number] [place] [address] [place] Chloride [Moles/Vol] 99 mmol/L Normal 98-107 [facility] Comment on above: Order Comment: Speci men Type: BLOOD SPECIMENOrdering Facility: [facility] Address: [address] [place] [address] Performed By: #### 2 4323-8 ####[facility] LABCLIA [id number] [place] [address] [place] CO2 [Moles/Vol] 25 mmol/L Normal 22-30 [facility] Comment on above: Order Comment: Speci men Type: BLOOD SPECIMENOrdering Facility: [facility] Address: [address] [place] [address] Performed By: #### 2 4323-8 ####[facility] LABIA [id number] [address] [place] Creatinine [Mass/Vol] 0.68 mg/dL Normal 0.58-0.96 [facility] Comment on above: Order Comment: Speci men Type: BLOOD SPECIMENOrdering Facility: [facility] Address: [address] [place] [address] Performed By: #### 2 4323-8 ####[facility] LABIA [id number] [address] OF [facility] Creatinine and Glomerular filtration rate.predicted panel (S/P/Bld) 89 mL/min/1.73m??? Normal >=60 [facility] Comment on above: Order Comment: Speci men Type: BLOOD SPECIMENOrdering Facility: [facility] Address: [address] [place] [address] Result Comment: Rosana mated Glomerular Filtration Rate (eGFR) is calculated using the 2020 CKD-EPI creatinine equation. This equation utilizes serum creatinine, sex, and age as parameters. The creatinine assay has traceable calibration to isotope dilution-mass spectrometry. Refer to KDIGO guidelines for clinical interpretation. In patients with unstable renal function, e.g. those with acute kidney injury, the eGFR may not accurately reflect actual GFR. Performed By: #### 2 4323-8 ####[facility] LABCLIA [id number] [place] [address] [place] Glucose [Mass/Vol] 110 mg/dL High 74-99 [facility] Comment on above: Order Comment: Speci men Type: BLOOD SPECIMENOrdering Facility: [facility] Address: [address] [place] [address] Result Comment: The [place] Diabetes Association (ADA) provides guidance for cutoff values for fasting glucose and random glucose. The ADA defines fasting as no caloric intake for at least 8 hours. Fasting plasma glucose results between 100 to 125 mg/dL indicate increased risk for diabetes (prediabetes).Fasting plasma glucose results greater than or equal to 126 mg/dL meet the criteria for diagnosis of diabetes. In the absence of unequivocal hyperglycemia, results should be confirmed by repeat testing. In a patient with classic symptoms of hyperglycemia or hyperglycemic crisis, random plasma glucose results greater than or equal to 200 mg/dL meet the criteria for diagnosis of diabetes.Reference: Standards of Medical Care in Diabetes 2016, [place] Diabetes Association. Diabetes Care. 2016.39(Suppl 1). Performed By: #### 2 4323-8 ####[facility] LABCLIA [id number] [place] [address] [place] Potassium [Moles/Vol] 4.6 mmol/L Normal 3.7-5.1 [facility] Comment on above: Order Comment: Speci men Type: BLOOD SPECIMENOrdering Facility: [facility] Address: [address] [place], [place] [address] Performed By: #### 2 4323-8 ####[facility] LABCLIA [id number] [place] [address] [place] Protein [Mass/Vol] 8.2 g/dL High 6.3-8.0 [facility] Comment on above: Order Comment: Speci men Type: BLOOD SPECIMENOrdering Facility: [facility] Address: [address] [place] [address] Performed By: #### 2 4323-8 ####[facility] LABCLIA [id number] [place] [address] [place] Sodium [Moles/Vol] 138 mmol/L Normal 136-144 [facility] Comment on above: Order Comment: Speci men Type: BLOOD SPECIMENOrdering Facility: [facility] Address: [address] [place] [address] Performed By: #### 2 4323-8 ####[facility] LABCLIA [id number] [place] [address] [place] Urea nitrogen [Mass/Vol] 15 mg/dL Normal 7-21 [facility] Comment on above: Order Comment: Speci men Type: BLOOD SPECIMENOrdering Facility: [facility] Address: [address] [place] [address] Performed By: #### 2 4323-8 ####[facility] LABIA [id number] [address] [place] DPYD/UGT1A1 GENOTYPING PANEL on 12-16-2023 DPYD/UGT1A1 GENOTYPING PANEL RESULT Normal [facility] Comment on above: Order Comment: Speci men Type: BLOOD SPECIMENOrdering Facility: [facility] Address: [address] [place] [address] Result Comment: [employer] ([employer]) DPYD and UGT1A1 GenotypingLaboratory Accession Number: [id number] Genotype: *1/*1DPYD Activity Score: 2DPYD Predicted Phenotype: DPYD Normal BaqksqzmdmyOUI3Z0 Genotype: *1/*80+*46RVO7G2 Predicted Phenotype: UGT1A1 Intermediate MetabolizerInterpretation:Two normal function alleles were observed in the DPYD gene (seevariant details below) resulting in an activity score of 2. Thisactivity score is associated with a DPYD normal metabolizer phenotype.DPYD normal metabolizers are not expected to require (based onpharmacogenomic results alone) selective adjustment of the dose ofmedications metabolized by DPD. Please consult a clinical pharmacistfor more information regarding drug therapy. Questions regardingmolecular testing details should be directed .One decreased function UGT1A1 allele, in combination with either onenormal function or one increased function UGT1A1 allele, wasobserved in this sample (see variant details below). This isassociated with a UGT1A1 intermediate metabolizer phenotype. YKY3K8hollxhoulghg metabolizers are not expected to require (based onpharmacogenomic results alone) selective adjustment of the dose ofmedications metabolized by UGT. Please consult a clinical pharmacistfor more information regarding drug therapy. Questions regardingmolecular testing details should be directed [email or web address].The DPYD gene encodes dihydropyrimidine dehydrogenase (DPD). Thisenzyme is involved in the metabolism of fluoropyrimidines. The TWN2E4nfly encodes UDP-glucuronosyltransferase (UGT). UGT is involved in themetabolism of certain medications including ones used in oncology. Forclinical correlation, drug-specific guidelines are available toprovide phenotype assignment and therapeutic recommendations based onphenotype. Patients who carry genetic variants associated with alteredmetabolism may be at risk for an adverse or poor response to drugsthat are predominantly metabolized by the associated enzyme (DPD orUGT). For patients with altered DPD and/or UGT activity, alternativepharmacological agents or dosing adjustments may be needed formedications metabolized by this enzyme to avoid an unexpected oradverse response.Please note that this DPYD genotyping test includes variants that maynot have been assayed in a previous test performed elsewhere. If thereis discordance of phenotype results between laboratories, it is likelya function of the different variants assayed in each test. Themethodology section of the report (see below) lists the variantsinterrogated by this test.DPYD Variant Details:[id number] Variant Details:UGT1A1 [id number], c.-346C>T, g.612612659T>T; (legacy name 80), [id number], c.-41_-40dupTA g.[id number]; (legacy name 28)DPYD Additional Information:In addition to increased risk of 5-fluorouracil toxicity, variants inthe DPYD gene may be associated with DPD deficiency, an autosomalrecessive inborn error of metabolism (OMIM: 795123). DPD deficiencyexhibits a wide range of phenotypic variability, from no symptoms to sim rare severe neurological disorder with onset in infancy orchildhood (prevalence unknown). For the vast majority of affectedindividuals, the first and only symptom is sensitivity to5-fluorouracil and capecitabine. It is possible that individuals withDPD deficiency may be identified by the presence of two no-functionDPYD variants (activity score = 0). However, this test is designed asa pharmacogenomic test and is not intended as a diagnostic or carriertest for DPD deficiency. A formal genetics consultation is recommendedfor those with concerns regarding DPD deficiency.Limitations:DNA studies do not provide a definitive genetic or pharmacogenomicrisk in all individuals. This test is designed to detect a specificset of variants (see list below) in the DPYD gene (OMIM 588581) aemBVF1R8 gene (OMIM 365643). This test does not detect all sequencevariants in either gene. Uncommon variants or single nucleotidepolymorphisms may affect binding of primers and probes and may resultin false negative, false positive, or indeterminate results. Theabsence of abnormal variants as analyzed in this test is interpretedas the presence of *1/*1 (wild type/normal) genotype. The phenotypeprovided in the interpretation may be impacted by undetected geneticand/or non-genetic factors such as drug-drug interactions.Methodology:Purified genomic DNA was subjected to polymerase chain reaction-basedamplification. The DPYD (NM_000110.3) and UGT1A1 (NM_000463.3) geneswere interrogated for known, clinically relevant variants. Primerextension products were analyzed using matrix-assisted laserdesorption/ionization massspectrometry, and specific genotypesassigned were then translated to the appropriate star (*) allele (DPYDand UGT1A1) and activity score (DPYD), see lists below. The referencegenome used is GRCh38/hg38.UGT1A1 star alleles: *1, *6, *27, *28, *36, *37, *80, *80+*28,*80+*36, and *80+*37. These alleles are detected using the presence orabsence of the following variants, RefSNP ID: [id number], [id number] (TA repeats), and [id number].DPYD star alleles and targeted variants:RefSNP ID Legacy Total Allele Highest Allele Name Frequency Frequency General Population (Population)No variantdetected *[id number] *2A 0.6% 2.4% (Eur F)[id number] *8 0.01% 0.03% (S )oj2116963 *10 n/xhm88112723 *12 0.0008% 0.003% (S )[id number] *13 0.03% 0.06% (Eur F)[id number] Y186C 0.2% 2.15% ()[id number] c.2846A>T 0.3% 0.5% (Eur NF)[id number] HapB3 1.4% 2.1 % (Eur NF)[id number] HapB3(c.1236G>A) 1.4% 2.1% (Eur NF)Population frequencies are from gnomAD and may be different inspecific ethnic groups. The allele frequency shown is the total allelefrequency in all populations. The highest allele frequency for asingle population is also noted (Eur F = Luxembourger, Eur NF = non-Luxembourger, S = South ). Note: [id number] (HapB3)and [id number] (c.1236G>A) are in linkage disequilibrium thus aretypically seen together.References:1) Clinical Pharmacogenetics Implementation Consortium (CPIC):www.CPICpgx.org2) Pharmacogene Variation Consortium (PharmVar): www.PharmVar.org3) Genome Aggregation Database V2.1.1 (gnomAD), accessed March2021, https://gnomad.broadinstitute.org4) Jose M, Keenan EM, Pritchard JM, et al. PharmacogenomicsKnowledge for Personalized Medicine Clinical Pharmacology andTherapeutics (2012) 92(4): 414-417.5) Valente U, [place] WILKES, Nusrat SM, et al. Clinical PharmacogeneticsImplementation Consortium (CPIC) Guideline for DihydropyrimidineDehydrogenase Genotype and Fluoropyrimidine Dosin Update. ClinPharmacol Ther. 2018;103(2):210-216.6) MedlineTYFFON, Projectioneering of Medicine 2020. Dihydropyrimidinedehydrogenase deficiency, accessed 17 October 2020,https://medlineplus.gov/genetics/condition/dihydropyrimidine-d ehydrogenase-deficiency/#resources7) Chandni Bustamante, Davin CASAS, Renate RCM, jayden Izquierdo ABP. Purine andPyrimidine Metabolism: Pyrimidine Metabolism: DihydropyrimidineDehydrogenase. [employer]'s Principles and Practice of MedicalGenetics and Genomics: Metabolic Disorders, Seventh Edition. Edited byCassie Hdz al, Elsevier. 2020. Sections 6.3.4 - 6.3.4.4https://nsd-[email or web address]-[email or web address].[email or web address]/#!/content/dante ok/[email or web address]?scrollTo=%[email or web address]) Janette RS, Aixa MH, Cali CE, et al. Clinical PharmacogeneticsImplementation Consortium (CPIC) Guideline for UGT1A1 and AtazanavirPrescribing. Clinical Pharmacology and Therapeutics (2016) Jun;99(4):363-9.9) King Clau, Kushal KENDRICK. Overview of Glibert's syndrome. Drug TherBull. 2019 May 57(2):27-30.10) [facility] 2020, Gilbert Syndrome, accessed 17 October 2020,[email or web address] syndromeDisclaimer:This test was developed and its performance characteristics determinedby [facility]'s Pathology and Laboratory Medicine Department. Ithas not been cleared or approved by the FDA. [facility] is regulated under CLIAas certified to perform high-complexity testing. This test is used forclinical purposes. It should not be regarded as investigational or forresearch.Testing and interpretation performed at [facility], [address] [place] [address]. CLIA Number: [id number] reviewed by Rohini Kraft MD Performed By: #### D UP1 ####[facility] LIMSCLIA [id number] [place] [address] [place] Ferritin SerPl-mCncon 2023 Ferritin [Mass/Vol] 483.0 ng/mL High 14.7-205.1 [facility] Comment on above: Order Comment: Speci men Type: BLOOD SPECIMENOrdering Facility: [facility] Address: [address] [place] [address] Performed By: #### 2 132-9, 2276-4, 2284-8, 18958-8 ####[facility] LABCLIA [id number] [place] [address] [place] Folate SerPl-mCncon 12-16-19 24 Folate [Mass/Vol] 7.7 ng/mL Normal >4.7 [facility] Comment on above: Order Comment: Speci men Type: BLOOD SPECIMENOrdering Facility: [facility] Address: [address] [place] [address] Performed By: #### 2 132-9, 2276-4, 2284-8, 85809-1 ####[facility] LABCLIA [id number] [place] [address] [place] HBV core Ab Ser Qlon 024 HBV core Ab Ql (S) Negative Normal Negative [facility] Comment on above: Order Comment: [facility] Type: BLOOD SPECIMENOrdering Facility: [facility] Address: [address] [place] [address] Result Comment: No e vidence of current or past infection with Hepatitis B virus. Should recent infection be suspected, repeat testing may be considered 3-4 weeks after this draw. Performed By: #### 1 6933-4, 5195-3, 19757-9 ####[facility] LABCLIA [id number] [place] [address] [place] HBV surface Ab Ql (S)on 11-29 HBV surface Ab Qn (S) <8.00 Normal [facility] Comment on above: Order Comment: Antwan kashif Type: BLOOD SPECIMENOrdering Facility: [facility] Address: [address] [place] [address] Result Comment: <8 m IU/mL: No serological evidence of immunity to Hepatitis B Virus.>/= 8 to <12 mIU/mL: No serological evidence of immunity to Hepatitis B Virus.>/= 12 mIU/mL: Consistent with serological evidence of immunity to Hepatitis B Virus. Performed By: #### 1 6933-4, 5195-3, 35326-3 ####[facility] LABCLIA [id number] [place] [address] [place] HBV surface Ab Ser Qlon 11-29 HBV surface Ab Ql (S) Negative Normal [facility] Comment on above: Order Comment: Speci men Type: BLOOD SPECIMENOrdering Facility: [facility] Address: [address] [place] [address] Result Comment: No s erological evidence of immunity to Hepatitis B Virus. Performed By: #### 1 6933-4, 5195-3, 02666-1 ####[facility] LABCLIA [id number] [address] [place] HBV surface Ag Ser Qlon 11-29 HBV surface Ag Ql (S) Negative Normal Negative [facility] Comment on above: Order Comment: Speci men Type: BLOOD SPECIMENOrdering Facility: [facility] Address: [address] [place] [address] Performed By: #### 1 6933-4, 5195-3, 03497-9 ####[facility] LABCLIA [id number] [address] [place] HCV Ab Ser Qlon 12-16-2023 HCV Ab Ql (S) Negative Normal Negative [facility] Comment on above: Order Comment: Speci men Type: BLOOD SPECIMENOrdering Facility: [facility] Address: [address] [place] [address] Result Comment: The result suggests no evidence of active infection with Hepatitis C virus. Should recent infection be suspected, repeat testing may be considered 4-6 weeks after this draw. Performed By: #### 1 6128-1 ####[facility] LABCLIA [id number] [place] [address] [place] Iron and Iron binding capaci ty panelon 12-16-2023 Iron [Mass/Vol] 29 ug/dL Low 41-186 [facility] Comment on above: Order Comment: Speci men Type: BLOOD SPECIMENOrdering Facility: [facility] Address: [address] [place], [place] [address] Performed By: #### 2 132-9, 2276-4, 2284-8, 29940-5 ####[facility] LABCLIA [id number] [place] [address] [place] Iron binding capacity [Mass/Vol] 257 ug/dL Normal 232-386 [facility] Comment on above: Order Comment: Speci men Type: BLOOD SPECIMENOrdering Facility: [facility] Address: [address] [place] [address] Performed By: #### 2 132-9, 2276-4, 2284-8, 49427-2 ####[facility] LABCLIA [id number] [place] [address] [place] Iron/TIBC [Molar ratio] 11.3 % Low 15.0-57.0 [facility] Comment on above: Order Comment: Speci men Type: BLOOD SPECIMENOrdering Facility: [facility] Address: [address] [place] [address] Performed By: #### 2 132-9, 2276-4, 2284-8, 09256-6 ####[facility] LABCLIA [id number] [place] [address] [place] Vit B12 SerPl-mCncon 024 Cobalamin (Vitamin B12) [Mass/Vol] 569 pg/mL Normal 232-1245 [facility] Comment on above: Order Comment: Speci men Type: BLOOD SPECIMENOrdering Facility: [facility] Address: [address] [place] [address] Performed By: #### 2 132-9, 2276-4, 2284-8, 14428-3 ####[facility] LABCLIA [id number] [place]I [id number] [address] [place] CNOVon 12-15-2023 CNOV Normal [facility] CBC panel Auto (Bld)on 12-05 Erythrocyte distribution width (RBC) [Ratio] 15.2 % High 11.5-15.0 [facility] Comment on above: Order Comment: Speci men Type: BLOOD SPECIMENOrdering Facility: [facility] Address: [address] [place] [address] Performed By: #### 5 8410-2 ####[facility] LABORATORYCLIA [id number] [address] STATES OF [facility] Hematocrit (Bld) [Volume fraction] 25.4 % Low 36.0-46.0 [facility] Comment on above: Order Comment: Speci men Type: BLOOD SPECIMENOrdering Facility: [facility] Address: [address] [place] [address] Performed By: #### 5 8410-2 ####[facility] [id number] [address] [place] Hemoglobin (Bld) [Mass/Vol] 8.5 g/dL Low 11.5-15.5 [facility] Comment on above: Order Comment: Speci men Type: BLOOD SPECIMENOrdering Facility: [facility] Address: [address] [place] [address] Performed By: #### 5 8410-2 ####[facility] LABORATORYCLIA [id number] [address] [place] MCH (RBC) [Entitic mass] 29.3 pg Normal 26.0-34.0 [facility] Comment on above: Order Comment: Speci men Type: BLOOD SPECIMENOrdering Facility: [facility] Address: [address] [place] [address] Performed By: #### 5 8410-2 ####[facility] LABORATORYCLIA [id number] [address] [place] MCHC (RBC) [Mass/Vol] 33.5 g/dL Normal 30.5-36.0 [facility] Comment on above: Order Comment: Speci men Type: BLOOD SPECIMENOrdering Facility: [facility] Address: [facility] [place], [place] [address] Performed By: #### 5 8410-2 ####[facility] LABORATORYCLIA [id number] [address] [place] MCV (RBC) [Entitic vol] 87.6 fL Normal 80.0-100.0 [facility] Comment on above: Order Comment: Speci men Type: BLOOD SPECIMENOrdering Facility: [facility] Address: [address] [place] [address] Performed By: #### 5 8410-2 ####[facility] LABORATORYCLIA [id number] [address] [place] Nucleated RBC (Bld) [#/Vol] 10*3/uL Normal <0.01 [facility] Comment on above: Order Comment: Speci men Type: BLOOD SPECIMENOrdering Facility: [facility] Address: [address] [place] [address] Performed By: #### 5 8410-2 ####[facility] LABORATORYCLIA [id number] [address] [place] Platelet mean volume (Bld) [Entitic vol] 9.1 fL Normal 9.0-12.7 [facility] Comment on above: Order Comment: Speci men Type: BLOOD SPECIMENOrdering Facility: [facility] Address: [address] [place] [address] Performed By: #### 5 8410-2 ####[facility] LABORATORYCLIA [id number] [address] [place] Platelets (Bld) [#/Vol] 656 10*3/uL High 150-400 [facility] Comment on above: Order Comment: Speci men Type: BLOOD SPECIMENOrdering Facility: [facility] Address: [address] [place] [address] Performed By: #### 5 8410-2 ####[facility] LABORATORYCLIA [id number] [address] STATES OF [facility] RBC (Bld) [#/Vol] 2.90 10*6/uL Low 3.90-5.20 [facility] Comment on above: Order Comment: Speci men Type: BLOOD SPECIMENOrdering Facility: [facility] Address: [address] [place] [address] Performed By: #### 5 8410-2 ####[facility] LABORATORYCLIA [id number] [address] WBC (Bld) [#/Vol] 15.32 10*3/uL High 3.70-11.00 [facility] Comment on above: Order Comment: Speci men Type: BLOOD SPECIMENOrdering Facility: [facility] Address: [address] [place] [address] Performed By: #### 5 8410-2 ####[facility] LABORATORYCLIA [id number] [address] OF [place] CNDSon 12-06-2023 CNDS Normal [facility] Comprehensive metabolic 2000 panelon 12-06-2023 Albumin [Mass/Vol] 2.8 g/dL Low 3.9-4.9 [facility] Comment on above: Order Comment: Speci men Type: BLOOD SPECIMENOrdering Facility: [facility] Address: [address] [place] [address] Performed By: #### 2 4323-8 ####[facility] LABORATORYCLIA [id number] [address] [place] ALP [Catalytic activity/Vol] 140 U/L High 34-123 [facility] Comment on above: Order Comment: Speci men Type: BLOOD SPECIMENOrdering Facility: [facility] Address: [address] [place] [address] Performed By: #### 2 4323-8 ####[facility] LABORATORYCLIA [id number] [address] OF [facility] ALT With P-5'-P [Catalytic activity/Vol] 33 U/L Normal 7-38 [facility] Comment on above: Order Comment: Speci men Type: BLOOD SPECIMENOrdering Facility: [facility] Address: [address] [place] [address] Performed By: #### 2 4323-8 ####[facility] LABORATORYCLIA [id number] [address] STATES OF [facility] Anion gap [Moles/Vol] 11 mmol/L Normal 8-15 [facility] Comment on above: Order Comment: Speci men Type: BLOOD SPECIMENOrdering Facility: [facility] Address: [address] [place] [address] Performed By: #### 2 4323-8 ####[facility] LABORATORYCLIA [id number] [address] STATES OF [facility] AST With P-5'-P [Catalytic activity/Vol] 15 U/L Normal 13-35 [facility] Comment on above: Order Comment: Speci men Type: BLOOD SPECIMENOrdering Facility: [facility] Address: [address] [place] [address] Performed By: #### 2 4323-8 ####[facility] LABORATORYCLIA [id number] [address] [place] Bilirubin [Mass/Vol] 0.3 mg/dL Normal 0.2-1.3 [facility] Comment on above: Order Comment: Speci men Type: BLOOD SPECIMENOrdering Facility: [facility] Address: [address] [place] [address] Performed By: #### 2 4323-8 ####[facility] LABORATORYCLIA [id number] [address] [place] Calcium [Mass/Vol] 8.5 mg/dL Normal 8.5-10.2 [facility] Comment on above: Order Comment: Speci men Type: BLOOD SPECIMENOrdering Facility: [facility] Address: [address] [place] [address] Performed By: #### 2 4323-8 ####[facility] LABORATORYCLIA [id number] [address] [place] Chloride [Moles/Vol] 102 mmol/L Normal 98-107 [facility] Comment on above: Order Comment: Speci men Type: BLOOD SPECIMENOrdering Facility: [facility] Address: [address] [place] [address] Performed By: #### 2 4323-8 ####[facility] LABORATORYCLIA [id number] [address] STATES OF [facility] CO2 [Moles/Vol] 27 mmol/L Normal 22-30 [facility] Comment on above: Order Comment: Speci men Type: BLOOD SPECIMENOrdering Facility: [facility] Address: [address] [place] [address] Performed By: #### 2 4323-8 ####[facility] [id number] [address] Creatinine [Mass/Vol] 0.65 mg/dL Normal 0.58-0.96 [facility] Comment on above: Order Comment: Speci men Type: BLOOD SPECIMENOrdering Facility: [facility] Address: [address] [place] [address] Performed By: #### 2 4323-8 ####[facility] LABORATORYCLIA [id number] [address] Creatinine and Glomerular filtration rate.predicted panel (S/P/Bld) 90 mL/min/1.73m??? Normal >=60 [facility] Comment on above: Order Comment: Speci men Type: BLOOD SPECIMENOrdering Facility: [facility] Address: [address] [place] [address] Result Comment: Rosana mated Glomerular Filtration Rate (eGFR) is calculated using the 2020 CKD-EPI creatinine equation. This equation utilizes serum creatinine, sex, and age as parameters. The creatinine assay has traceable calibration to isotope dilution-mass spectrometry. Refer to KDIGO guidelines for clinical interpretation. In patients with unstable renal function, e.g. those with acute kidney injury, the eGFR may not accurately reflect actual GFR. Performed By: #### 2 4323-8 ####[facility] LABORATORYCLIA [id number] [place] [address] [place] Glucose [Mass/Vol] 111 mg/dL High 74-99 [facility] Comment on above: Order Comment: Antwan kashif Type: BLOOD SPECIMENOrdering Facility: [facility] Address: [address] [place] [address] Result Comment: The [place] Diabetes [employer] (ADA) provides guidance for cutoff values for fasting glucose and random glucose. The ADA defines fasting as no caloric intake for at least 8 hours. Fasting plasma glucose results between 100 to 125 mg/dL indicate increased risk for diabetes (prediabetes).Fasting plasma glucose results greater than or equal to 126 mg/dL meet the criteria for diagnosis of diabetes. In the absence of unequivocal hyperglycemia, results should be confirmed by repeat testing. In a patient with classic symptoms of hyperglycemia or hyperglycemic crisis, random plasma glucose results greater than or equal to 200 mg/dL meet the criteria for diagnosis of diabetes.Reference: Standards of Medical Care in Diabetes 2016, [place] [employer]. Diabetes Care. 2016.39(Suppl 1). Performed By: #### 2 4323-8 ####[facility] LABORATORYCLIA [id number] [place] [address] [place] Potassium [Moles/Vol] 4.2 mmol/L Normal 3.7-5.1 [facility] Comment on above: Order Comment: Antwan kashif Type: BLOOD SPECIMENOrdering Facility: [facility] Address: [address] [place] [address] Performed By: #### 2 4323-8 ####[facility] LABORATORYCLIA [id number] [place] [address] [place] Protein [Mass/Vol] 6.0 g/dL Low 6.3-8.0 [facility] Comment on above: Order Comment: Antwan kashif Type: BLOOD SPECIMENOrdering Facility: [facility] Address: [address] [place] [address] Performed By: #### 2 4323-8 ####[facility] LABORATORYCLIA [id number] [place] [address] [place] Sodium [Moles/Vol] 140 mmol/L Normal 136-144 [facility] Comment on above: Order Comment: Speci men Type: BLOOD SPECIMENOrdering Facility: [facility] Address: [address] [place] [address] Performed By: #### 2 4323-8 ####[facility] LABORATORYCLIA [id number] [place] [id number] [place] Urea nitrogen [Mass/Vol] 8 mg/dL Normal 7-21 [facility] Comment on above: Order Comment: Speci men Type: BLOOD SPECIMENOrdering Facility: [facility] Address: [address] [place] [address] Performed By: #### 2 4323-8 ####[facility] LABORATORYCLIA [id number] [address] [place] BRIEF OP NOTon 12-05-2023 BRIEF OP NOT Normal [facility] CASE MANAGEMon 12-05-2023 CASE MANAGEM Normal [facility] CASE MANAGEM Normal [facility] CBC panel Auto (Bld)on 12-04 Erythrocyte distribution width (RBC) [Ratio] 15.2 % High 11.5-15.0 [facility] Comment on above: Order Comment: Speci men Type: BLOOD SPECIMENOrdering Facility: [facility] Address: [address] [place] [address] Performed By: #### 5 8410-2 ####[facility] LABORATORYCLIA [id number] [address] [place] Hematocrit (Bld) [Volume fraction] 23.6 % Low 36.0-46.0 [facility] Comment on above: Order Comment: Speci men Type: BLOOD SPECIMENOrdering Facility: [facility] Address: [address] [place] [address] Performed By: #### 5 8410-2 ####[facility] LABORATORYCLIA [id number] [place] [address] [place] Hemoglobin (Bld) [Mass/Vol] 7.7 g/dL Low 11.5-15.5 [facility] Comment on above: Order Comment: Speci men Type: BLOOD SPECIMENOrdering Facility: [facility] Address: [address] [place] [address] Performed By: #### 5 8410-2 ####[facility] LABORATORYCLIA [id number] [address] MCH (RBC) [Entitic mass] 28.6 pg Normal 26.0-34.0 [facility] Comment on above: Order Comment: Speci men Type: BLOOD SPECIMENOrdering Facility: [facility] Address: [address] [place] [address] Performed By: #### 5 8410-2 ####[facility] LABORATORYCLIA [id number] [address] STATES [facility] MCHC (RBC) [Mass/Vol] 32.6 g/dL Normal 30.5-36.0 [facility] Comment on above: Order Comment: Speci men Type: BLOOD SPECIMENOrdering Facility: [facility] Address: [address] [place] [address] Performed By: #### 5 8410-2 ####[facility] LABORATORYCLIA [id number] [address] MCV (RBC) [Entitic vol] 87.7 fL Normal 80.0-100.0 [facility] Comment on above: Order Comment: Speci men Type: BLOOD SPECIMENOrdering Facility: [facility] Address: [address] [place] [address] Performed By: #### 5 8410-2 ####[facility] LABORATORYCLIA [id number] [address] Nucleated RBC (Bld) [#/Vol] 10*3/uL Normal <0.01 [facility] Comment on above: Order Comment: Speci men Type: BLOOD SPECIMENOrdering Facility: [facility] Address: [address] [place] [address] Performed By: #### 5 8410-2 ####[facility] LABORATORYCLIA [id number] [address] Platelet mean volume (Bld) [Entitic vol] 9.1 fL Normal 9.0-12.7 [facility] Comment on above: Order Comment: Speci men Type: BLOOD SPECIMENOrdering Facility: [facility] Address: [address] [place] [address] Performed By: #### 5 8410-2 ####[facility] LABORATORYCLIA [id number] [address] OF [facility] Platelets (Bld) [#/Vol] 549 10*3/uL High 150-400 [facility] Comment on above: Order Comment: Speci men Type: BLOOD SPECIMENOrdering Facility: [facility] Address: [address] [place] [address] Performed By: #### 5 8410-2 ####[facility] LABORATORYCLIA [id number] [place] [address] [place] RBC (Bld) [#/Vol] 2.69 10*6/uL Low 3.90-5.20 [facility] Comment on above: Order Comment: Speci men Type: BLOOD SPECIMENOrdering Facility: [facility] Address: [address] [place] [address] Performed By: #### 5 8410-2 ####[facility] LABORATORYCLIA [id number] [address] [place] WBC (Bld) [#/Vol] 14.87 10*3/uL High 3.70-11.00 [facility] Comment on above: Order Comment: Speci men Type: BLOOD SPECIMENOrdering Facility: [facility] Address: [address] [place] [address] Performed By: #### 5 8410-2 ####[facility] LABORATORYCLIA [id number] [place] [address] [place] ABD/PEL WO IVCONon 2023 CT ABD/PEL WO IVCON Normal [facility] Comprehensive metabolic 2000 panelon 12-05-2023 Albumin [Mass/Vol] 2.5 g/dL Low 3.9-4.9 [facility] Comment on above: Order Comment: Speci men Type: BLOOD SPECIMENOrdering Facility: [facility] Address: [address] [place] [address] Performed By: #### 2 4323-8 ####[facility]ORATORYCLIA [id number] [address] [place] ALP [Catalytic activity/Vol] 146 U/L High 34-123 [facility] Comment on above: Order Comment: Speci men Type: BLOOD SPECIMENOrdering Facility: [facility] Address: [address] [place] [address] Performed By: #### 2 4323-8 ####[facility]ORATORYCLIA [id number] [address] [place] ALT With P-5'-P [Catalytic activity/Vol] 39 U/L High 7-38 [facility] Comment on above: Order Comment: Speci men Type: BLOOD SPECIMENOrdering Facility: [facility] Address: [address] [place] [address] Performed By: #### 2 4323-8 ####[facility]ORATORYCLIA [id number] [address] [place] Anion gap [Moles/Vol] 8 mmol/L Normal 8-15 [facility] Comment on above: Order Comment: Speci men Type: BLOOD SPECIMENOrdering Facility: [facility] Address: [address] [place] [address] Performed By: #### 2 4323-8 ####[facility] LABORATORYCLIA [id number] [address] [place] AST With P-5'-P [Catalytic activity/Vol] 18 U/L Normal 13-35 [facility] Comment on above: Order Comment: Speci men Type: BLOOD SPECIMENOrdering Facility: [facility] Address: [address] [place] [address] Performed By: #### 2 4323-8 ####[facility]ORATORYCLIA [id number] [address] [place] Bilirubin [Mass/Vol] 0.2 mg/dL Normal 0.2-1.3 [facility] Comment on above: Order Comment: Speci men Type: BLOOD SPECIMENOrdering Facility: [facility] Address: [address] [place] [address] Performed By: #### 2 4323-8 ####[facility]ORATORYCLIA [id number] [place] [address] [place] Calcium [Mass/Vol] 8.4 mg/dL Low 8.5-10.2 [facility] Comment on above: Order Comment: Speci men Type: BLOOD SPECIMENOrdering Facility: [facility] Address: [address] [place] [address] Performed By: #### 2 4323-8 ####[facility] LABORATORYCLIA [id number] [place] [address] [place] Chloride [Moles/Vol] 97 mmol/L Low 98-107 [facility] Comment on above: Order Comment: Speci men Type: BLOOD SPECIMENOrdering Facility: [facility] Address: [address] [place] [address] Performed By: #### 2 4323-8 ####[facility] LABORATORYCLIA [id number] [place] [address] [place] CO2 [Moles/Vol] 28 mmol/L Normal 22-30 [facility] Comment on above: Order Comment: Speci men Type: BLOOD SPECIMENOrdering Facility: [facility] Address: [address] [place] [address] Performed By: #### 2 4323-8 ####[facility] LABORATORYCLIA [id number] [place] [address] [place] Creatinine [Mass/Vol] 0.67 mg/dL Normal 0.58-0.96 [facility] Comment on above: Order Comment: Speci men Type: BLOOD SPECIMENOrdering Facility: [facility] Address: [address] [place] [address] Performed By: #### 2 4323-8 ####[facility] LABORATORYCLIA [id number] [address] [place] Creatinine and Glomerular filtration rate.predicted panel (S/P/Bld) 90 mL/min/1.73m??? Normal >=60 [facility] Comment on above: Order Comment: Antwan rowland Type: BLOOD SPECIMENOrdering Facility: [facility] Address: [address] [place] [address] Result Comment: Rosana mated Glomerular Filtration Rate (eGFR) is calculated using the 2020 CKD-EPI creatinine equation. This equation utilizes serum creatinine, sex, and age as parameters. The creatinine assay has traceable calibration to isotope dilution-mass spectrometry. Refer to KDIGO guidelines for clinical interpretation. In patients with unstable renal function, e.g. those with acute kidney injury, the eGFR may not accurately reflect actual GFR. Performed By: #### 2 4323-8 ####[facility] LABORATORYCLIA [id number] [place] [address] [place] Glucose [Mass/Vol] 120 mg/dL High 74-99 [facility] Comment on above: Order Comment: Antwan rowland Type: BLOOD SPECIMENOrdering Facility: [facility] Address: [address] [place] [address] Result Comment: The [place] Diabetes Association (ADA) provides guidance for cutoff values for fasting glucose and random glucose. The ADA defines fasting as no caloric intake for at least 8 hours. Fasting plasma glucose results between 100 to 125 mg/dL indicate increased risk for diabetes (prediabetes).Fasting plasma glucose results greater than or equal to 126 mg/dL meet the criteria for diagnosis of diabetes. In the absence of unequivocal hyperglycemia, results should be confirmed by repeat testing. In a patient with classic symptoms of hyperglycemia or hyperglycemic crisis, random plasma glucose results greater than or equal to 200 mg/dL meet the criteria for diagnosis of diabetes.Reference: Standards of Medical Care in Diabetes 2016, [place] Diabetes [employer]. Diabetes Care. 2016.39(Suppl 1). Performed By: #### 2 4323-8 ####[facility] LABORATORYCLIA [id number] [place] [address] [place] Potassium [Moles/Vol] 3.8 mmol/L Normal 3.7-5.1 [facility] Comment on above: Order Comment: Antwan rowland Type: BLOOD SPECIMENOrdering Facility: [facility] Address: [address] [place] [address] Performed By: #### 2 4323-8 ####[facility]ORATORYCLIA [id number] [place] [address] [place] Protein [Mass/Vol] 5.4 g/dL Low 6.3-8.0 [facility] Comment on above: Order Comment: Speci men Type: BLOOD SPECIMENOrdering Facility: [facility] Address: [address] [place] [address] Performed By: #### 2 4323-8 ####[facility] LABORATORYCLIA [id number] [place] [address] [place] Sodium [Moles/Vol] 133 mmol/L Low 136-144 [facility] Comment on above: Order Comment: Speci men Type: BLOOD SPECIMENOrdering Facility: [facility] Address: [address] [place] [address] Performed By: #### 2 4323-8 ####[facility] LABORATORYCLIA [id number] [place] [address] [place] Urea nitrogen [Mass/Vol] 11 mg/dL Normal 7-21 [facility] Comment on above: Order Comment: Speci men Type: BLOOD SPECIMENOrdering Facility: [facility] Address: [address] [place] [address] Performed By: #### 2 4323-8 ####[facility] LABORATORYCLIA [id number] [place] [address] [place] IR INJ FOR ASSESSMENT MIRTHA Cortez ATHon 12-05-2023 IR INJ FOR ASSESSMENT MIRTHA CATH Normal [facility] THERAPY NTon 12-05-2023 THERAPY NT Normal [facility] XR ABDOMEN 1V SUPINEon 12-04 XR ABDOMEN 1V SUPINE Normal [facility] CASE MANAGEMon 12-04-2023 CASE MANAGEM Normal [facility] CASE MANAGEM Normal [facility] CBC panel Auto (Bld)on 12-03 Erythrocyte distribution width (RBC) [Ratio] 15.4 % High 11.5-15.0 [facility] Comment on above: Order Comment: Speci men Type: BLOOD SPECIMENOrdering Facility: [facility] Address: [address] [place] [address] Performed By: #### 5 8410-2 ####[facility] LABORATORYCLIA [id number] [address] Hematocrit (Bld) [Volume fraction] 28.0 % Low 36.0-46.0 [facility] Comment on above: Order Comment: Speci men Type: BLOOD SPECIMENOrdering Facility: [facility] Address: [address] [place] [address] Performed By: #### 5 8410-2 ####[facility] LABORATORYCLIA [id number] [address] OF [facility] Hemoglobin (Bld) [Mass/Vol] 8.9 g/dL Low 11.5-15.5 [facility] Comment on above: Order Comment: Speci men Type: BLOOD SPECIMENOrdering Facility: [facility] Address: [address] [place] [address] Performed By: #### 5 8410-2 ####[facility] LABORATORYCLIA [id number] [address] MCH (RBC) [Entitic mass] 28.4 pg Normal 26.0-34.0 [facility] Comment on above: Order Comment: Speci men Type: BLOOD SPECIMENOrdering Facility: [facility] Address: [address] [place] [address] Performed By: #### 5 8410-2 ####[facility] LABORATORYCLIA [id number] [address] [place] MCHC (RBC) [Mass/Vol] 31.8 g/dL Normal 30.5-36.0 [facility] Comment on above: Order Comment: Speci men Type: BLOOD SPECIMENOrdering Facility: [facility] Address: [address] [place] [address] Performed By: #### 5 8410-2 ####[facility] LABORATORYCLIA [id number] [place] [address] [place] MCV (RBC) [Entitic vol] 89.5 fL Normal 80.0-100.0 [facility] Comment on above: Order Comment: Speci men Type: BLOOD SPECIMENOrdering Facility: [facility] Address: [address] [place] [address] Performed By: #### 5 8410-2 ####[facility] LABORATORYCLIA [id number] [address] [place] Nucleated RBC (Bld) [#/Vol] 0.02 10*3/uL High <0.01 [facility] Comment on above: Order Comment: Speci men Type: BLOOD SPECIMENOrdering Facility: [facility] Address: [address] [place] [address] Performed By: #### 5 8410-2 ####[facility] LABORATORYCLIA [id number] [address] [place] Platelet mean volume (Bld) [Entitic vol] 9.4 fL Normal 9.0-12.7 [facility] Comment on above: Order Comment: Speci men Type: BLOOD SPECIMENOrdering Facility: [facility] Address: [address] [place] [address] Performed By: #### 5 8410-2 ####[facility] LABORATORYCLIA [id number] [address] [place] Platelets (Bld) [#/Vol] 542 10*3/uL High 150-400 [facility] Comment on above: Order Comment: Speci men Type: BLOOD SPECIMENOrdering Facility: [facility] Address: [address] [place] [address] Performed By: #### 5 8410-2 ####[facility] LABORATORYCLIA [id number] [address] [place] RBC (Bld) [#/Vol] 3.13 10*6/uL Low 3.90-5.20 [facility] Comment on above: Order Comment: Speci men Type: BLOOD SPECIMENOrdering Facility: [facility] Address: [address] [place] [address] Performed By: #### 5 8410-2 ####[facility] LABORATORYCLIA [id number] [address] OF [facility] WBC (Bld) [#/Vol] 16.51 10*3/uL High 3.70-11.00 [facility] Comment on above: Order Comment: Speci men Type: BLOOD SPECIMENOrdering Facility: [facility] Address: [address] [place] [address] Performed By: #### 5 8410-2 ####[facility] LABORATORYCLIA [id number] [address] Comprehensive metabolic 2000 panelon 12-04-2023 Albumin [Mass/Vol] 2.5 g/dL Low 3.9-4.9 [facility] Comment on above: Order Comment: Speci men Type: BLOOD SPECIMENOrdering Facility: [facility] Address: [address] [place] [address] Performed By: #### 2 4323-8 ####[facility] LABORATORYCLIA [id number] [address] [place] ALP [Catalytic activity/Vol] 124 U/L High 34-123 [facility] Comment on above: Order Comment: Speci men Type: BLOOD SPECIMENOrdering Facility: [facility] Address: [address] [place] [address] Performed By: #### 2 4323-8 ####[facility] LABORATORYCLIA [id number] [address] ALT With P-5'-P [Catalytic activity/Vol] 51 U/L High 7-38 [facility] Comment on above: Order Comment: Speci men Type: BLOOD SPECIMENOrdering Facility: [facility] Address: [address] [place] [address] Performed By: #### 2 4323-8 ####[facility] LABORATORYCLIA [id number] [address] OF [place] Anion gap [Moles/Vol] 9 mmol/L Normal 8-15 [facility] Comment on above: Order Comment: Speci men Type: BLOOD SPECIMENOrdering Facility: [facility] Address: [address] [place] [address] Performed By: #### 2 4323-8 ####[facility] LABORATORYCLIA [id number] [place] [address] [place] AST With P-5'-P [Catalytic activity/Vol] 18 U/L Normal 13-35 [facility] Comment on above: Order Comment: Speci men Type: BLOOD SPECIMENOrdering Facility: [facility] Address: [address] [place] [address] Performed By: #### 2 4323-8 ####[facility] LABORATORYCLIA [id number] [place] [address] [place] Bilirubin [Mass/Vol] 0.3 mg/dL Normal 0.2-1.3 [facility] Comment on above: Order Comment: Speci men Type: BLOOD SPECIMENOrdering Facility: [facility] Address: [address] [place] [address] Performed By: #### 2 4323-8 ####[facility] LABORATORYCLIA [id number] [place] [address] [place] Calcium [Mass/Vol] 8.2 mg/dL Low 8.5-10.2 [facility] Comment on above: Order Comment: Speci men Type: BLOOD SPECIMENOrdering Facility: [facility] Address: [address] [place] [address] Performed By: #### 2 4323-8 ####[facility]ORATORYCLIA [id number] [place] [address] [place] Chloride [Moles/Vol] 98 mmol/L Normal 98-107 [facility] Comment on above: Order Comment: Speci men Type: BLOOD SPECIMENOrdering Facility: [facility] Address: [address] [place] [address] Performed By: #### 2 4323-8 ####[facility]ORATORYCLIA [id number] [place] [address] [place] CO2 [Moles/Vol] 28 mmol/L Normal 22-30 [facility] Comment on above: Order Comment: Speci men Type: BLOOD SPECIMENOrdering Facility: [facility] Address: [address] [place] [address] Performed By: #### 2 4323-8 ####[facility] LABORATORYCLIA [id number] [place] [id number] [place] Creatinine [Mass/Vol] 0.58 mg/dL Normal 0.58-0.96 [facility] Comment on above: Order Comment: Speci men Type: BLOOD SPECIMENOrdering Facility: [facility] Address: [address] [place] [address] Performed By: #### 2 4323-8 ####[facility] LABORATORYCLIA [id number] [address] Creatinine and Glomerular filtration rate.predicted panel (S/P/Bld) 93 mL/min/1.73m??? Normal >=60 [facility] Comment on above: Order Comment: Speci men Type: BLOOD SPECIMENOrdering Facility: [facility] Address: [address] [place] [address] Result Comment: Rosana mated Glomerular Filtration Rate (eGFR) is calculated using the 2020 CKD-EPI creatinine equation. This equation utilizes serum creatinine, sex, and age as parameters. The creatinine assay has traceable calibration to isotope dilution-mass spectrometry. Refer to KDIGO guidelines for clinical interpretation. In patients with unstable renal function, e.g. those with acute kidney injury, the eGFR may not accurately reflect actual GFR. Performed By: #### 2 4323-8 ####[facility] LABORATORYCLIA [id number] [place] [address] [place] Glucose [Mass/Vol] 111 mg/dL High 74-99 [facility] Comment on above: Order Comment: Speci men Type: BLOOD SPECIMENOrdering Facility: [facility] Address: [address] [place] [address] Result Comment: The [place] Diabetes Association (ADA) provides guidance for cutoff values for fasting glucose and random glucose. The ADA defines fasting as no caloric intake for at least 8 hours. Fasting plasma glucose results between 100 to 125 mg/dL indicate increased risk for diabetes (prediabetes).Fasting plasma glucose results greater than or equal to 126 mg/dL meet the criteria for diagnosis of diabetes. In the absence of unequivocal hyperglycemia, results should be confirmed by repeat testing. In a patient with classic symptoms of hyperglycemia or hyperglycemic crisis, random plasma glucose results greater than or equal to 200 mg/dL meet the criteria for diagnosis of diabetes.Reference: Standards of Medical Care in Diabetes 2016, [place] [employer] Association. Diabetes Care. 2016.39(Suppl 1). Performed By: #### 2 4323-8 ####[facility] LABORATORYCLIA [id number] [place] [address] [place] Potassium [Moles/Vol] 3.5 mmol/L Low 3.7-5.1 [facility] Comment on above: Order Comment: Speci men Type: BLOOD SPECIMENOrdering Facility: [facility] Address: [address] [place] [address] Performed By: #### 2 4323-8 ####[facility] LABORATORYCLIA [id number] [place] [address] [place] Protein [Mass/Vol] 5.6 g/dL Low 6.3-8.0 [facility] Comment on above: Order Comment: Speci men Type: BLOOD SPECIMENOrdering Facility: [facility] Address: [address] [place] [address] Performed By: #### 2 4323-8 ####[facility] LABORATORYCLIA [id number] [place] [address] [place] Sodium [Moles/Vol] 135 mmol/L Low 136-144 [facility] Comment on above: Order Comment: Speci men Type: BLOOD SPECIMENOrdering Facility: [facility] Address: [address] [place] [address] Performed By: #### 2 4323-8 ####[facility] LABORATORYCLIA [id number] [place] [address] [place] Urea nitrogen [Mass/Vol] 7 mg/dL Normal 7-21 [facility] Comment on above: Order Comment: Speci men Type: BLOOD SPECIMENOrdering Facility: [facility] Address: [address] [place] [address] Performed By: #### 2 4323-8 ####[facility] LABORATORYCLIA [id number] [address] aPTT PPPon 12-04-2023 aPTT Coag (PPP) [Time] 39.5 s High 23.0-32.4 [facility] Comment on above: Order Comment: Speci men Type: BLOOD SPECIMENOrdering Facility: [facility] Address: [address] [place] [address] Performed By: #### 1 4979-9 ####[facility] LABORATORYCLIA [id number] [address] OF [facility] CBC panel Auto (Bld)on 12-02 Erythrocyte distribution width (RBC) [Ratio] 14.9 % Normal 11.5-15.0 [facility] Comment on above: Order Comment: Speci men Type: BLOOD SPECIMENOrdering Facility: [facility] Address: [address] [place] [address] Performed By: #### 5 8410-2 ####[facility] LABORATORYCLIA [id number] [address] STATES OF [facility] Hematocrit (Bld) [Volume fraction] 25.4 % Low 36.0-46.0 [facility] Comment on above: Order Comment: Speci men Type: BLOOD SPECIMENOrdering Facility: [facility] Address: [address] [place] [address] Performed By: #### 5 8410-2 ####[facility] LABORATORYCLIA [id number] [address] STATES OF [facility] Hemoglobin (Bld) [Mass/Vol] 8.3 g/dL Low 11.5-15.5 [facility] Comment on above: Order Comment: Speci men Type: BLOOD SPECIMENOrdering Facility: [facility] Address: [address] [place] [address] Performed By: #### 5 8410-2 ####[facility] LABORATORYCLIA [id number] [address] MCH (RBC) [Entitic mass] 29.0 pg Normal 26.0-34.0 [facility] Comment on above: Order Comment: Speci men Type: BLOOD SPECIMENOrdering Facility: [facility] Address: [address] [place] [address] Performed By: #### 5 8410-2 ####[facility] LABORATORYCLIA [id number] [address] MCHC (RBC) [Mass/Vol] 32.7 g/dL Normal 30.5-36.0 [facility] Comment on above: Order Comment: Speci men Type: BLOOD SPECIMENOrdering Facility: [facility] Address: [address] [place] [address] Performed By: #### 5 8410-2 ####[facility] LABORATORYCLIA [id number] [address] MCV (RBC) [Entitic vol] 88.8 fL Normal 80.0-100.0 [facility] Comment on above: Order Comment: Speci men Type: BLOOD SPECIMENOrdering Facility: [facility] Address: [address] [place] [address] Performed By: #### 5 8410-2 ####[facility] LABORATORYCLIA [id number] [address] Nucleated RBC (Bld) [#/Vol] 0.02 10*3/uL High <0.01 [facility] Comment on above: Order Comment: Speci men Type: BLOOD SPECIMENOrdering Facility: [facility] Address: [address] [place] [address] Performed By: #### 5 8410-2 ####[facility] LABORATORYCLIA [id number] [address] Platelet mean volume (Bld) [Entitic vol] 9.4 fL Normal 9.0-12.7 [facility] Comment on above: Order Comment: Speci men Type: BLOOD SPECIMENOrdering Facility: [facility] Address: [address] [place] [id number] Performed By: #### 5 8410-2 ####[facility] LABORATORYCLIA [id number] [address] OF [facility] Platelets (Bld) [#/Vol] 443 10*3/uL High 150-400 [facility] Comment on above: Order Comment: Speci men Type: BLOOD SPECIMENOrdering Facility: [facility] Address: [address] [place] [address] Performed By: #### 5 8410-2 ####[facility] LABORATORYCLIA [id number] [address] OF [facility] RBC (Bld) [#/Vol] 2.86 10*6/uL Low 3.90-5.20 [facility] Comment on above: Order Comment: Speci men Type: BLOOD SPECIMENOrdering Facility: [facility] Address: [address] [place] [address] Performed By: #### 5 8410-2 ####[facility] LABORATORYCLIA [id number] [address] OF [facility] WBC (Bld) [#/Vol] 14.29 10*3/uL High 3.70-11.00 [facility] Comment on above: Order Comment: Speci men Type: BLOOD SPECIMENOrdering Facility: [facility] Address: [address] [place] [address] Performed By: #### 5 8410-2 ####[facility] LABORATORYCLIA [id number] [address] CONSULT PROGon 12-03-2023 CONSULT PROG Normal [facility] Comprehensive metabolic 2000 panelon 12-03-2023 Albumin [Mass/Vol] 2.4 g/dL Low 3.9-4.9 [facility] Comment on above: Order Comment: Speci men Type: BLOOD SPECIMENOrdering Facility: [facility] Address: [address] [place] [address] Performed By: #### 2 4323-8 ####[facility] LABORATORYCLIA [id number] [address] [place] ALP [Catalytic activity/Vol] 163 U/L High 34-123 [facility] Comment on above: Order Comment: Speci men Type: BLOOD SPECIMENOrdering Facility: [facility] Address: [address] [place] [address] Performed By: #### 2 4323-8 ####[facility] LABORATORYCLIA [id number] [place] [address] [place] ALT With P-5'-P [Catalytic activity/Vol] 60 U/L High 7-38 [facility] Comment on above: Order Comment: Speci men Type: BLOOD SPECIMENOrdering Facility: [facility] Address: [address] [place] [address] Performed By: #### 2 4323-8 ####[facility] LABORATORYCLIA [id number] [address] [place] Anion gap [Moles/Vol] 8 mmol/L Normal 8-15 [facility] Comment on above: Order Comment: Speci men Type: BLOOD SPECIMENOrdering Facility: [facility] Address: [address] [place] [address] Performed By: #### 2 4323-8 ####[facility] LABORATORYCLIA [id number] [address] [place] AST With P-5'-P [Catalytic activity/Vol] 30 U/L Normal 13-35 [facility] Comment on above: Order Comment: Speci men Type: BLOOD SPECIMENOrdering Facility: [facility] Address: [address] [place] [address] Performed By: #### 2 4323-8 ####[facility] LABORATORYCLIA [id number] [address] [place] Bilirubin [Mass/Vol] 0.3 mg/dL Normal 0.2-1.3 [facility] Comment on above: Order Comment: Speci men Type: BLOOD SPECIMENOrdering Facility: [facility] Address: [address] [place] [address] Performed By: #### 2 4323-8 ####[facility]ORATORYCLIA [id number] [address] [place] Calcium [Mass/Vol] 8.4 mg/dL Low 8.5-10.2 [facility] Comment on above: Order Comment: Speci men Type: BLOOD SPECIMENOrdering Facility: [facility] Address: [address] [place] [address] Performed By: #### 2 4323-8 ####[facility] LABORATORYCLIA [id number] [place] [address] [place] Chloride [Moles/Vol] 99 mmol/L Normal 98-107 [facility] Comment on above: Order Comment: Speci men Type: BLOOD SPECIMENOrdering Facility: [facility] Address: [address] [place] [address] Performed By: #### 2 4323-8 ####[facility] LABORATORYCLIA [id number] [address] [place] CO2 [Moles/Vol] 29 mmol/L Normal 22-30 [facility] Comment on above: Order Comment: Speci men Type: BLOOD SPECIMENOrdering Facility: [facility] Address: [address] [place] [address] Performed By: #### 2 4323-8 ####[facility] LABORATORYCLIA [id number] [address] [place] Creatinine [Mass/Vol] 0.55 mg/dL Low 0.58-0.96 [facility] Comment on above: Order Comment: Speci men Type: BLOOD SPECIMENOrdering Facility: [facility] Address: [address] [place] [address] Performed By: #### 2 4323-8 ####[facility] LABORATORYCLIA [id number] [address] Creatinine and Glomerular filtration rate.predicted panel (S/P/Bld) 94 mL/min/1.73m??? Normal >=60 [facility] Comment on above: Order Comment: Speci men Type: BLOOD SPECIMENOrdering Facility: [facility] Address: [address] [place] [address] Result Comment: Rosana mated Glomerular Filtration Rate (eGFR) is calculated using the 2020 CKD-EPI creatinine equation. This equation utilizes serum creatinine, sex, and age as parameters. The creatinine assay has traceable calibration to isotope dilution-mass spectrometry. Refer to KDIGO guidelines for clinical interpretation. In patients with unstable renal function, e.g. those with acute kidney injury, the eGFR may not accurately reflect actual GFR. Performed By: #### 2 4323-8 ####[facility] LABORATORYCLIA [id number] [place] [address] [place] Glucose [Mass/Vol] 114 mg/dL High 74-99 [facility] Comment on above: Order Comment: Antwan rowland Type: BLOOD SPECIMENOrdering Facility: [facility] Address: [address] [place] [address] Result Comment: The [place] Diabetes Association (ADA) provides guidance for cutoff values for fasting glucose and random glucose. The ADA defines fasting as no caloric intake for at least 8 hours. Fasting plasma glucose results between 100 to 125 mg/dL indicate increased risk for diabetes (prediabetes).Fasting plasma glucose results greater than or equal to 126 mg/dL meet the criteria for diagnosis of diabetes. In the absence of unequivocal hyperglycemia, results should be confirmed by repeat testing. In a patient with classic symptoms of hyperglycemia or hyperglycemic crisis, random plasma glucose results greater than or equal to 200 mg/dL meet the criteria for diagnosis of diabetes.Reference: Standards of Medical Care in Diabetes 2016, [place] Diabetes Association. Diabetes Care. 2016.39(Suppl 1). Performed By: #### 2 4323-8 ####[facility] LABORATORYCLIA [id number] [place] [address] [place] Potassium [Moles/Vol] 3.6 mmol/L Low 3.7-5.1 [facility] Comment on above: Order Comment: Antwan rowland Type: BLOOD SPECIMENOrdering Facility: [facility] Address: [address] [place] [id number] Performed By: #### 2 4323-8 ####[facility] LABORATORYCLIA [id number] [place] [address] [place] Protein [Mass/Vol] 5.3 g/dL Low 6.3-8.0 [facility] Comment on above: Order Comment: Speci men Type: BLOOD SPECIMENOrdering Facility: [facility] Address: [address] [place] [address] Performed By: #### 2 4323-8 ####[facility] LABORATORYCLIA [id number] [place] [id number] [place] Sodium [Moles/Vol] 136 mmol/L Normal 136-144 [facility] Comment on above: Order Comment: Speci men Type: BLOOD SPECIMENOrdering Facility: [facility] Address: [address] [place] [address] Performed By: #### 2 4323-8 ####[facility] LABORATORYCLIA [id number] [place] [address] [place] Urea nitrogen [Mass/Vol] 7 mg/dL Normal 7-21 [facility] Comment on above: Order Comment: Speci men Type: BLOOD SPECIMENOrdering Facility: [facility] Address: [address] [place] [address] Performed By: #### 2 4323-8 ####[facility] LABORATORYCLIA [id number] [place] [address] [place] NUTRITIONon 12-03-2023 NUTRITION Normal [facility] THERAPY NTon 12-03-2023 THERAPY NT Normal [facility] aPTT PPPon 12-03-2023 aPTT Coag (PPP) [Time] 44.1 s High 23.0-32.4 [facility] Comment on above: Order Comment: Speci men Type: BLOOD SPECIMENOrdering Facility: [facility] Address: [address] [place] [address] Performed By: #### 1 4979-9 ####[facility]ORATORYCLIA [id number] [place] [address] [place] aPTT Coag (PPP) [Time] 57.2 s High 23.0-32.4 [facility] Comment on above: Order Comment: Speci men Type: BLOOD SPECIMENOrdering Facility: [facility] Address: [address] [place] [address] Performed By: #### 1 4979-9 ####[facility] LABORATORYCLIA [id number] [address] aPTT Coag (PPP) [Time] 88.0 s High 23.0-32.4 [facility] Comment on above: Order Comment: Speci men Type: BLOOD SPECIMENOrdering Facility: [facility] [facility] [place] Address: [address] [place] [address] Performed By: #### 1 4979-9 ####[facility] LABORATORYCLIA [id number] [address] aPTT Coag (PPP) [Time] s High 23.0-32.4 [facility] Comment on above: Order Comment: Speci men Type: BLOOD SPECIMENOrdering Facility: [facility] [place] Address: [address] [place] [address] Performed By: #### 1 4979-9 ####[facility] LABORATORYCLIA [id number] [address] CASE MANAGEMon 12-02-2023 CASE MANAGEM Normal [facility] CBC panel Auto (Bld)on 12-01 Erythrocyte distribution width (RBC) [Ratio] 15.2 % High 11.5-15.0 [facility] Comment on above: Order Comment: Speci men Type: BLOOD SPECIMENOrdering Facility: [facility] [place] Address: [address] [place] [address] Performed By: #### 5 8410-2 ####[facility] LABORATORYCLIA [id number] [address] Hematocrit (Bld) [Volume fraction] 32.8 % Low 36.0-46.0 [facility] Comment on above: Order Comment: Speci men Type: BLOOD SPECIMENOrdering Facility: [facility] [place] Address: [address] [place] [address] Performed By: #### 5 8410-2 ####[facility] LABORATORYCLIA [id number] [address] STATES OF [facility] Hemoglobin (Bld) [Mass/Vol] 10.1 g/dL Low 11.5-15.5 [facility] Comment on above: Order Comment: Speci men Type: BLOOD SPECIMENOrdering Facility: [facility] [place] Address: [address] [place] [address] Performed By: #### 5 8410-2 ####[facility] LABORATORYCLIA [id number] [address] STATES OF [facility] MCH (RBC) [Entitic mass] 28.2 pg Normal 26.0-34.0 [facility] Comment on above: Order Comment: Speci men Type: BLOOD SPECIMENOrdering Facility: [facility] [place] Address: [address] [place] [address] Performed By: #### 5 8410-2 ####[facility] LABORATORYCLIA [id number] [address] STATES [facility] MCHC (RBC) [Mass/Vol] 30.8 g/dL Normal 30.5-36.0 [facility] Comment on above: Order Comment: Speci men Type: BLOOD SPECIMENOrdering Facility: [facility] [place] Address: [address] [place] [address] Performed By: #### 5 8410-2 ####[facility] LABORATORYCLIA [id number] [address] STATES OF [place] MCV (RBC) [Entitic vol] 91.6 fL Normal 80.0-100.0 [facility] Comment on above: Order Comment: Speci men Type: BLOOD SPECIMENOrdering Facility: [facility] [place] Address: [address] [place] [address] Performed By: #### 5 8410-2 ####[facility] LABORATORYCLIA [id number] [address] STATES OF [facility] Nucleated RBC (Bld) [#/Vol] 0.02 10*3/uL High <0.01 [facility] Comment on above: Order Comment: Speci men Type: BLOOD SPECIMENOrdering Facility: [facility] [place] Address: [address] [place] [address] Performed By: #### 5 8410-2 ####[facility] LABORATORYCLIA [id number] [address] STATES [place] Platelet mean volume (Bld) [Entitic vol] 9.4 fL Normal 9.0-12.7 [facility] Comment on above: Order Comment: Speci men Type: BLOOD SPECIMENOrdering Facility: [facility] [place] Address: [facility] [place] [address] Performed By: #### 5 8410-2 ####[facility] LABORATORYCLIA [id number] [address] OF [place] Platelets (Bld) [#/Vol] 481 10*3/uL High 150-400 [facility] Comment on above: Order Comment: Speci men Type: BLOOD SPECIMENOrdering Facility: [facility] [place] Address: [address] [place] [address] Performed By: #### 5 8410-2 ####[facility] LABORATORYCLIA [id number] [place] [address] [place] RBC (Bld) [#/Vol] 3.58 10*6/uL Low 3.90-5.20 [facility] Comment on above: Order Comment: Speci men Type: BLOOD SPECIMENOrdering Facility: [facility] [place] Address: [address] [place] [address] Performed By: #### 5 8410-2 ####[facility] LABORATORYCLIA [id number] [address] STATES OF [place] WBC (Bld) [#/Vol] 14.34 10*3/uL High 3.70-11.00 [facility] Comment on above: Order Comment: Speci men Type: BLOOD SPECIMENOrdering Facility: [facility] [place] Address: [address] [place] [address] Performed By: #### 5 8410-2 ####[facility] LABORATORYCLIA [id number] [place] [address] Erythrocyte distribution width (RBC) [Ratio] 15.2 % High 11.5-15.0 [facility] Comment on above: Order Comment: Speci men Type: BLOOD SPECIMENOrdering Facility: [facility] [place] Address: [address] [place] [address] Performed By: #### 5 8410-2 ####[facility] LABORATORYCLIA [id number] [address] STATES [place] Hematocrit (Bld) [Volume fraction] 25.2 % Low 36.0-46.0 [facility] Comment on above: Order Comment: Speci men Type: BLOOD SPECIMENOrdering Facility: [facility] [place] Address: [address] [place] [address] Performed By: #### 5 8410-2 ####[facility] LABORATORYCLIA [id number] [address] OF [place] Hemoglobin (Bld) [Mass/Vol] 8.1 g/dL Low 11.5-15.5 [facility] Comment on above: Order Comment: Speci men Type: BLOOD SPECIMENOrdering Facility: [facility] [place] Address: [address] [place] [address] Performed By: #### 5 8410-2 ####[facility] LABORATORYCLIA [id number] [address] STATES [place] MCH (RBC) [Entitic mass] 29.0 pg Normal 26.0-34.0 [facility] Comment on above: Order Comment: Speci men Type: BLOOD SPECIMENOrdering Facility: [facility] [place] Address: [address] [place] [address] Performed By: #### 5 8410-2 ####[facility] LABORATORYCLIA [id number] [address] STATES [facility] MCHC (RBC) [Mass/Vol] 32.1 g/dL Normal 30.5-36.0 [facility] Comment on above: Order Comment: Speci men Type: BLOOD SPECIMENOrdering Facility: [facility] [place] Address: [address] [place] [address] Performed By: #### 5 8410-2 ####[facility] LABORATORYCLIA [id number] [address] STATES [facility] MCV (RBC) [Entitic vol] 90.3 fL Normal 80.0-100.0 [facility] Comment on above: Order Comment: Speci men Type: BLOOD SPECIMENOrdering Facility: [facility] [place] Address: [address] [place] [address] Performed By: #### 5 8410-2 ####[facility] LABORATORYCLIA [id number] [address] Nucleated RBC (Bld) [#/Vol] 0.03 10*3/uL High <0.01 [facility] Comment on above: Order Comment: Speci men Type: BLOOD SPECIMENOrdering Facility: [facility] [place] Address: [address] [place] [address] Performed By: #### 5 8410-2 ####[facility] LABORATORYCLIA [id number] [address] STATES OF [facility] Platelet mean volume (Bld) [Entitic vol] 9.4 fL Normal 9.0-12.7 [facility] Comment on above: Order Comment: Speci men Type: BLOOD SPECIMENOrdering Facility: [facility] [place] Address: [address] [place] [address] Performed By: #### 5 8410-2 ####[facility] LABORATORYCLIA [id number] [address] STATES [facility] Platelets (Bld) [#/Vol] 394 10*3/uL Normal 150-400 [facility] Comment on above: Order Comment: Speci men Type: BLOOD SPECIMENOrdering Facility: [facility] [place] Address: [address] [place] [address] Performed By: #### 5 8410-2 ####[facility] LABORATORYCLIA [id number] [address] STATES [place] RBC (Bld) [#/Vol] 2.79 10*6/uL Low 3.90-5.20 [facility] Comment on above: Order Comment: Speci men Type: BLOOD SPECIMENOrdering Facility: [facility] [place] Address: [address] [place] [address] Performed By: #### 5 8410-2 ####[facility] LABORATORYCLIA [id number] [place] [address] [place] WBC (Bld) [#/Vol] 13.59 10*3/uL High 3.70-11.00 [facility] Comment on above: Order Comment: Speci men Type: BLOOD SPECIMENOrdering Facility: [facility] [place] Address: [address] [place] [address] Performed By: #### 5 8410-2 ####[facility] LABORATORYCLIA [id number] [address] STATES OF [place] CONSULT PROGon 12-02-2023 CONSULT PROG Normal [facility] Comprehensive metabolic 2000 panelon 12-02-2023 Albumin [Mass/Vol] 2.6 g/dL Low 3.9-4.9 [facility] Comment on above: Order Comment: Speci men Type: BLOOD SPECIMENOrdering Facility: [facility] [place] Address: [address] [place] [address] Performed By: #### 2 4323-8 ####[facility] LABORATORYCLIA [id number] [place] [address] [place] ALP [Catalytic activity/Vol] 100 U/L Normal 34-123 [facility] Comment on above: Order Comment: Speci men Type: BLOOD SPECIMENOrdering Facility: [facility] [place] Address: [address] [place] [address] Performed By: #### 2 4323-8 ####[facility] LABORATORYCLIA [id number] [address] STATES [place] ALT With P-5'-P [Catalytic activity/Vol] 87 U/L High 7-38 [facility] Comment on above: Order Comment: Speci men Type: BLOOD SPECIMENOrdering Facility: [facility] [place] Address: [address] [place] [address] Performed By: #### 2 4323-8 ####[facility]ORATORYCLIA [id number] [place] [address] [place] Anion gap [Moles/Vol] 9 mmol/L Normal 8-15 [facility] Comment on above: Order Comment: Speci men Type: BLOOD SPECIMENOrdering Facility: [facility] [place] Address: [address] [place] [address] Performed By: #### 2 4323-8 ####[facility] LABORATORYCLIA [id number] [place] [address] [place] AST With P-5'-P [Catalytic activity/Vol] 20 U/L Normal 13-35 [facility] Comment on above: Order Comment: Speci men Type: BLOOD SPECIMENOrdering Facility: [facility] [place] Address: [address] [place] [address] Performed By: #### 2 4323-8 ####[facility] LABORATORYCLIA [id number] [place] [address] [place] Bilirubin [Mass/Vol] 0.3 mg/dL Normal 0.2-1.3 [facility] Comment on above: Order Comment: Speci men Type: BLOOD SPECIMENOrdering Facility: [facility] [place] Address: [address] [place] [address] Performed By: #### 2 4323-8 ####[facility] LABORATORYCLIA [id number] [address] STATES [place] Calcium [Mass/Vol] 8.4 mg/dL Low 8.5-10.2 [facility] Comment on above: Order Comment: Speci men Type: BLOOD SPECIMENOrdering Facility: [facility] [place] Address: [address] [place] [address] Performed By: #### 2 4323-8 ####[facility] LABORATORYCLIA [id number] [address] STATES [place] Chloride [Moles/Vol] 93 mmol/L Low 98-107 [facility] Comment on above: Order Comment: Speci men Type: BLOOD SPECIMENOrdering Facility: [facility] [place] Address: [address] [place] [address] Performed By: #### 2 4323-8 ####[facility] LABORATORYCLIA [id number] [place] [id number] [place] CO2 [Moles/Vol] 28 mmol/L Normal 22-30 [facility] Comment on above: Order Comment: Speci men Type: BLOOD SPECIMENOrdering Facility: [facility] [place] Address: [address] [place] [address] Performed By: #### 2 4323-8 ####[facility] LABORATORYCLIA [id number] [address] STATES [place] Creatinine [Mass/Vol] 0.54 mg/dL Low 0.58-0.96 [facility] Comment on above: Order Comment: Speci men Type: BLOOD SPECIMENOrdering Facility: [facility] [place] Address: [address] [place] [address] Performed By: #### 2 4323-8 ####[facility] LABORATORYCLIA [id number] [address] Creatinine and Glomerular filtration rate.predicted panel (S/P/Bld) 94 mL/min/1.73m??? Normal >=60 [facility] Comment on above: Order Comment: Speci men Type: BLOOD SPECIMENOrdering Facility: [facility] [place] Address: [address] [place] [address] Result Comment: Rosana mated Glomerular Filtration Rate (eGFR) is calculated using the 2020 CKD-EPI creatinine equation. This equation utilizes serum creatinine, sex, and age as parameters. The creatinine assay has traceable calibration to isotope dilution-mass spectrometry. Refer to KDIGO guidelines for clinical interpretation. In patients with unstable renal function, e.g. those with acute kidney injury, the eGFR may not accurately reflect actual GFR. Performed By: #### 2 4323-8 ####[facility] LABORATORYCLIA [id number] [address] [place] Glucose [Mass/Vol] 108 mg/dL High 74-99 [facility] Comment on above: Order Comment: Speci men Type: BLOOD SPECIMENOrdering Facility: [facility] [place] Address: [address] [place] [address] Result Comment: The [place] Diabetes Association (ADA) provides guidance for cutoff values for fasting glucose and random glucose. The ADA defines fasting as no caloric intake for at least 8 hours. Fasting plasma glucose results between 100 to 125 mg/dL indicate increased risk for diabetes (prediabetes).Fasting plasma glucose results greater than or equal to 126 mg/dL meet the criteria for diagnosis of diabetes. In the absence of unequivocal hyperglycemia, results should be confirmed by repeat testing. In a patient with classic symptoms of hyperglycemia or hyperglycemic crisis, random plasma glucose results greater than or equal to 200 mg/dL meet the criteria for diagnosis of diabetes.Reference: Standards of Medical Care in Diabetes 2016, [place] [employer] Association. Diabetes Care. 2016.39(Suppl 1). Performed By: #### 2 4323-8 ####[facility] LABORATORYCLIA [id number] [place] [address] [place] Potassium [Moles/Vol] 3.7 mmol/L Normal 3.7-5.1 [facility] Comment on above: Order Comment: Speci men Type: BLOOD SPECIMENOrdering Facility: [facility] [place] Address: [address] [place] [address] Performed By: #### 2 4323-8 ####[facility] LABORATORYCLIA [id number] [place] [address] [place] Protein [Mass/Vol] 5.4 g/dL Low 6.3-8.0 [facility] Comment on above: Order Comment: Speci men Type: BLOOD SPECIMENOrdering Facility: [facility] [place] Address: [address] [place] [address] Performed By: #### 2 4323-8 ####[facility] LABORATORYCLIA [id number] [place] [address] [place] Sodium [Moles/Vol] 130 mmol/L Low 136-144 [facility] Comment on above: Order Comment: Speci men Type: BLOOD SPECIMENOrdering Facility: [facility] [place] Address: [address] [place] [address] Performed By: #### 2 4323-8 ####[facility] LABORATORYCLIA [id number] [place] [id number] [place] Urea nitrogen [Mass/Vol] 6 mg/dL Low 7- [facility] Comment on above: Order Comment: Speci men Type: BLOOD SPECIMENOrdering Facility: [facility] [place] Address: [address] [place] [address] Performed By: #### 2 4323-8 ####[facility] LABORATORYCLIA [id number] [place] [id number] [place] [facility] PT panel Coag (PPP)on 2023 INR Coag (PPP) [Relative time] 1.0 {INR} Normal 0.9-1.3 [facility] Comment on above: Order Comment: Speci men Type: BLOOD SPECIMENOrdering Facility: [facility] [place] Address: [address] [place] [address] Result Comment: Avis min K Antagonist (VKA) Therapeutic Range: INR 2 to 3 (Target INR of 2.5)Note: For patients treated with VKA drugs, such as warfarin, the [place] [employer] 2012 Guideline recommends a therapeutic INR range of 2 to 3 (target INR of 2.5). This recommendation includes high-risk patients with antiphospholipid syndrome with previous arterial or venous thromboembolism, current-generation mechanical or bioprosthetic aortic heart valve replacement.Note: Patients with mechanical aortic valve replacement and additional risk factors for thromboembolic events (atrial fibrillation, previous thromboembolism, LV dysfunction, hypercoagulable conditions) or an older generation mechanical AVR (i.e., ball in-Cage) or any mechanical MVR should have a INR therapeutic range of 2.5 to 3.5 (target INR of 3).Margot GH, et al. Chest 2012, 141:7S-47SNishbilly RA, et al. JACC 2017, 70: 252-289 Performed By: #### 3 4528-0, 23841-1 ####[facility] LABORATORYCLIA [id number] [place] [id number] [place] PT Coag (PPP) [Time] 10.9 s Normal 9.7-13.0 [facility] Comment on above: Order Comment: Speci men Type: BLOOD SPECIMENOrdering Facility: [facility] [place] Address: [address] [place] [address] Performed By: #### 3 4528-0, 40626-7 ####[facility] LABORATORYCLIA [id number] [address] aPTT PPPon 12-02-2023 aPTT Coag (PPP) [Time] s High 23.0-32.4 [facility] Comment on above: Order Comment: Speci men Type: BLOOD SPECIMENOrdering Facility: [facility] [place] Address: [address] [place] [address] Performed By: #### 1 4979-9 ####[facility] LABORATORYCLIA [id number] [address] aPTT Coag (PPP) [Time] 35.8 s High 23.0-32.4 [facility] Comment on above: Order Comment: Speci men Type: BLOOD SPECIMENOrdering Facility: [facility] [place] Address: [address] [place] [address] Performed By: #### 3 4528-0, 48338-3 ####[facility] LABORATORYCLIA [id number] [address] OF [facility] ALLIED HEALTHon 12-01-2023 ALLIED HEALTH Normal [facility] CBC panel Auto (Bld)on 11-30 Erythrocyte distribution width (RBC) [Ratio] 14.9 % Normal 11.5-15.0 [facility] Comment on above: Order Comment: Speci men Type: BLOOD SPECIMENOrdering Facility: [facility] [place] Address: [address] [place] [address] Performed By: #### 5 8410-2 ####[facility] LABORATORYCLIA [id number] [address] Hematocrit (Bld) [Volume fraction] 26.4 % Low 36.0-46.0 [facility] Comment on above: Order Comment: Speci men Type: BLOOD SPECIMENOrdering Facility: [facility] [place] Address: [address] [place] [address] Performed By: #### 5 8410-2 ####[facility] LABORATORYCLIA [id number] [address] Hemoglobin (Bld) [Mass/Vol] 8.7 g/dL Low 11.5-15.5 [facility] Comment on above: Order Comment: Speci men Type: BLOOD SPECIMENOrdering Facility: [facility] [place] Address: [address] [place] [address] Performed By: #### 5 8410-2 ####[facility] LABORATORYCLIA [id number] [address] STATES OF [facility] MCH (RBC) [Entitic mass] 29.1 pg Normal 26.0-34.0 [facility] Comment on above: Order Comment: Speci men Type: BLOOD SPECIMENOrdering Facility: [facility] [place] Address: [address] [place] [address] Performed By: #### 5 8410-2 ####[facility] LABORATORYCLIA [id number] [address] MCHC (RBC) [Mass/Vol] 33.0 g/dL Normal 30.5-36.0 [facility] Comment on above: Order Comment: Speci men Type: BLOOD SPECIMENOrdering Facility: [facility] [place] Address: [address] [place] [address] Performed By: #### 5 8410-2 ####[facility] LABORATORYCLIA [id number] [address] STATES [facility] MCV (RBC) [Entitic vol] 88.3 fL Normal 80.0-100.0 [facility] Comment on above: Order Comment: Speci men Type: BLOOD SPECIMENOrdering Facility: [facility] Address: [address] [place] [address] Performed By: #### 5 8410-2 ####[facility] LABORATORYCLIA [id number] [address] OF [place] Nucleated RBC (Bld) [#/Vol] 10*3/uL Normal <0.01 [facility] Comment on above: Order Comment: Speci men Type: BLOOD SPECIMENOrdering Facility: [facility] Address: [address] [place] [address] Performed By: #### 5 8410-2 ####[facility] LABORATORYCLIA [id number] [address] [place] Platelet mean volume (Bld) [Entitic vol] 9.9 fL Normal 9.0-12.7 [facility] Comment on above: Order Comment: Speci men Type: BLOOD SPECIMENOrdering Facility: [facility] [place] Address: [address] [place] [address] Performed By: #### 5 8410-2 ####[facility] LABORATORYCLIA [id number] [address] [place] Platelets (Bld) [#/Vol] 353 10*3/uL Normal 150-400 [facility] Comment on above: Order Comment: Speci men Type: BLOOD SPECIMENOrdering Facility: [facility] Address: [address] [place] [address] Performed By: #### 5 8410-2 ####[facility] LABORATORYCLIA [id number] [place] [address] [place] RBC (Bld) [#/Vol] 2.99 10*6/uL Low 3.90-5.20 [facility] Comment on above: Order Comment: Speci men Type: BLOOD SPECIMENOrdering Facility: [facility] Address: [address] [place] [address] Performed By: #### 5 8410-2 ####[facility] LABORATORYCLIA [id number] [place] [address] [place] WBC (Bld) [#/Vol] 12.61 10*3/uL High 3.70-11.00 [facility] Comment on above: Order Comment: Speci men Type: BLOOD SPECIMENOrdering Facility: [facility] Address: [address] [place] [address] Performed By: #### 5 8410-2 ####[facility] SERVICES LABORATORYCLIA [id number] [place] [address] [place] CT ABD/PEL W IVCONon 024 CT ABD/PEL W IVCON Normal [facility] Comprehensive metabolic 2000 panelon 12-01-2023 Albumin [Mass/Vol] 2.9 g/dL Low 3.9-4.9 [facility] Comment on above: Order Comment: Speci men Type: BLOOD SPECIMENOrdering Facility: [facility] Address: [address] [place] [address] Performed By: #### 2 4323-8 ####[facility] LABORATORYCLIA [id number] [place] [address] [place] ALP [Catalytic activity/Vol] 100 U/L Normal 34-123 [facility] Comment on above: Order Comment: Speci men Type: BLOOD SPECIMENOrdering Facility: [facility] Address: [address] [place] [address] Performed By: #### 2 4323-8 ####[facility] LABORATORYCLIA [id number] [place] [address] [place] ALT With P-5'-P [Catalytic activity/Vol] 133 U/L High 7-38 [facility] Comment on above: Order Comment: Speci men Type: BLOOD SPECIMENOrdering Facility: [facility] Address: [address] [place] [address] Performed By: #### 2 4323-8 ####[facility] LABORATORYCLIA [id number] [place] [address] [place] Anion gap [Moles/Vol] 9 mmol/L Normal 8-15 [facility] Comment on above: Order Comment: Speci men Type: BLOOD SPECIMENOrdering Facility: [facility] Address: [address] [place] [address] Performed By: #### 2 4323-8 ####[facility] LABORATORYCLIA [id number] [place] [address] [place] AST With P-5'-P [Catalytic activity/Vol] 26 U/L Normal 13-35 [facility] Comment on above: Order Comment: Speci men Type: BLOOD SPECIMENOrdering Facility: [facility] Address: [address] [place] [address] Performed By: #### 2 4323-8 ####[facility] LABORATORYCLIA [id number] [place] [address] [place] Bilirubin [Mass/Vol] 0.3 mg/dL Normal 0.2-1.3 [facility] Comment on above: Order Comment: Speci men Type: BLOOD SPECIMENOrdering Facility: [facility] Address: [address] [place] [address] Performed By: #### 2 4323-8 ####[facility] LABORATORYCLIA [id number] [place] [address] [place] Calcium [Mass/Vol] 8.5 mg/dL Normal 8.5-10.2 [facility] Comment on above: Order Comment: Speci men Type: BLOOD SPECIMENOrdering Facility: [facility] Address: [address] [place] [address] Performed By: #### 2 4323-8 ####[facility] LABORATORYCLIA [id number] [place] [address] [place] Chloride [Moles/Vol] 99 mmol/L Normal 98-107 [facility] Comment on above: Order Comment: Speci men Type: BLOOD SPECIMENOrdering Facility: [facility] Address: [address] [place] [address] Performed By: #### 2 4323-8 ####[facility] LABORATORYCLIA [id number] [place] [address] [place] CO2 [Moles/Vol] 27 mmol/L Normal 22-30 [facility] Comment on above: Order Comment: Speci men Type: BLOOD SPECIMENOrdering Facility: [facility] Address: [address] [place] [address] Performed By: #### 2 4323-8 ####[facility] LABORATORYCLIA [id number] [place] [address] [place] Creatinine [Mass/Vol] 0.50 mg/dL Low 0.58-0.96 [facility] Comment on above: Order Comment: Antwan kashif Type: BLOOD SPECIMENOrdering Facility: [facility] Address: [address] [place] [address] Performed By: #### 2 4323-8 ####[facility] LABORATORYCLIA [id number] [address] [place] Creatinine and Glomerular filtration rate.predicted panel (S/P/Bld) 96 mL/min/1.73m??? Normal >=60 [facility] Comment on above: Order Comment: Antwan rowland Type: BLOOD SPECIMENOrdering Facility: [facility] Address: [address] [place] [address] Result Comment: Rosana mated Glomerular Filtration Rate (eGFR) is calculated using the 2020 CKD-EPI creatinine equation. This equation utilizes serum creatinine, sex, and age as parameters. The creatinine assay has traceable calibration to isotope dilution-mass spectrometry. Refer to KDIGO guidelines for clinical interpretation. In patients with unstable renal function, e.g. those with acute kidney injury, the eGFR may not accurately reflect actual GFR. Performed By: #### 2 4323-8 ####[facility] LABORATORYCLIA [id number] [place] [address] [place] Glucose [Mass/Vol] 124 mg/dL High 74-99 [facility] Comment on above: Order Comment: Antwan kashif Type: BLOOD SPECIMENOrdering Facility: [facility] Address: [address] [place] [address] Result Comment: The [place] Diabetes Association (ADA) provides guidance for cutoff values for fasting glucose and random glucose. The ADA defines fasting as no caloric intake for at least 8 hours. Fasting plasma glucose results between 100 to 125 mg/dL indicate increased risk for diabetes (prediabetes).Fasting plasma glucose results greater than or equal to 126 mg/dL meet the criteria for diagnosis of diabetes. In the absence of unequivocal hyperglycemia, results should be confirmed by repeat testing. In a patient with classic symptoms of hyperglycemia or hyperglycemic crisis, random plasma glucose results greater than or equal to 200 mg/dL meet the criteria for diagnosis of diabetes.Reference: Standards of Medical Care in Diabetes 2016, [place] Diabetes Association. Diabetes Care. 2016.39(Suppl 1). Performed By: #### 2 4323-8 ####[facility] LABORATORYCLIA [id number] [address] STATES OF [facility] Potassium [Moles/Vol] 3.7 mmol/L Normal 3.7-5.1 [facility] Comment on above: Order Comment: Speci men Type: BLOOD SPECIMENOrdering Facility: [facility] Address: [address] [place] [address] Performed By: #### 2 4323-8 ####[facility] LABORATORYCLIA [id number] [address] [place] Protein [Mass/Vol] 5.7 g/dL Low 6.3-8.0 [facility] Comment on above: Order Comment: Speci men Type: BLOOD SPECIMENOrdering Facility: [facility] Address: [address] [place] [address] Performed By: #### 2 4323-8 ####[facility] LABORATORYCLIA [id number] [address] STATES [facility] Sodium [Moles/Vol] 135 mmol/L Low 136-144 [facility] Comment on above: Order Comment: Speci men Type: BLOOD SPECIMENOrdering Facility: [facility] Address: [address] [place] [address] Performed By: #### 2 4323-8 ####[facility] LABORATORYCLIA [id number] [address] [place] Urea nitrogen [Mass/Vol] 6 mg/dL Low 7-21 [facility] Comment on above: Order Comment: Speci men Type: BLOOD SPECIMENOrdering Facility: [facility] Address: [address] [place] [address] Performed By: #### 2 4323-8 ####[facility] LABORATORYCLIA [id number] [address] OF [place] CBC panel Auto (Bld)on 11-29 Erythrocyte distribution width (RBC) [Ratio] 15.3 % High 11.5-15.0 [facility] Comment on above: Order Comment: Speci men Type: BLOOD SPECIMENOrdering Facility: [facility] Address: [address] [place] [address] Performed By: #### 5 8410-2 ####[facility] LABORATORYCLIA [id number] [address] OF [facility] Hematocrit (Bld) [Volume fraction] 25.9 % Low 36.0-46.0 [facility] Comment on above: Order Comment: Speci men Type: BLOOD SPECIMENOrdering Facility: [facility] Address: [address] [place] [address] Performed By: #### 5 8410-2 ####[facility] LABORATORYCLIA [id number] [address] OF [facility] Hemoglobin (Bld) [Mass/Vol] 8.2 g/dL Low 11.5-15.5 [facility] Comment on above: Order Comment: Speci men Type: BLOOD SPECIMENOrdering Facility: [facility] Address: [address] [place] [address] Performed By: #### 5 8410-2 ####[facility] LABORATORYCLIA [id number] [address] MCH (RBC) [Entitic mass] 28.9 pg Normal 26.0-34.0 [facility] Comment on above: Order Comment: Speci men Type: BLOOD SPECIMENOrdering Facility: [facility] Address: [address] [place] [address] Performed By: #### 5 8410-2 ####[facility] LABORATORYCLIA [id number] [address] [place] MCHC (RBC) [Mass/Vol] 31.7 g/dL Normal 30.5-36.0 [facility] Comment on above: Order Comment: Speci men Type: BLOOD SPECIMENOrdering Facility: [facility] Address: [address] [place] [address] Performed By: #### 5 8410-2 ####[facility] LABORATORYCLIA [id number] [address] MCV (RBC) [Entitic vol] 91.2 fL Normal 80.0-100.0 [facility] Comment on above: Order Comment: Speci men Type: BLOOD SPECIMENOrdering Facility: [facility] Address: [address] [place] [address] Performed By: #### 5 8410-2 ####[facility] LABORATORYCLIA [id number] [address] OF [place] Nucleated RBC (Bld) [#/Vol] 10*3/uL Normal <0.01 [facility] Comment on above: Order Comment: Speci men Type: BLOOD SPECIMENOrdering Facility: [facility] Address: [address] [place] [address] Performed By: #### 5 8410-2 ####[facility] LABORATORYCLIA [id number] [address] [place] Platelet mean volume (Bld) [Entitic vol] 10.3 fL Normal 9.0-12.7 [facility] Comment on above: Order Comment: Speci men Type: BLOOD SPECIMENOrdering Facility: [facility] Address: [address] [place] [address] Performed By: #### 5 8410-2 ####[facility] LABORATORYCLIA [id number] [address] [place] Platelets (Bld) [#/Vol] 287 10*3/uL Normal 150-400 [facility] Comment on above: Order Comment: Speci men Type: BLOOD SPECIMENOrdering Facility: [facility] Address: [address] [place] [address] Performed By: #### 5 8410-2 ####[facility] LABORATORYCLIA [id number] [address] OF [place] RBC (Bld) [#/Vol] 2.84 10*6/uL Low 3.90-5.20 [facility] Comment on above: Order Comment: Speci men Type: BLOOD SPECIMENOrdering Facility: [facility] Address: [address] [place] [address] Performed By: #### 5 8410-2 ####[facility] LABORATORYCLIA [id number] [place] [address] [place] [facility] WBC (Bld) [#/Vol] 12.53 10*3/uL High 3.70-11.00 [facility] Comment on above: Order Comment: Speci men Type: BLOOD SPECIMENOrdering Facility: [facility] Address: [address] [place] [address] Performed By: #### 5 8410-2 ####[facility] LABORATORYCLIA [id number] [place] [id number] [facility] Comprehensive metabolic 2000 panelon 11-30-2023 Albumin [Mass/Vol] 2.8 g/dL Low 3.9-4.9 [facility] Comment on above: Order Comment: Speci men Type: BLOOD SPECIMENOrdering Facility: [facility] Address: [address] [place] [address] Performed By: #### 2 4323-8 ####[facility] LABORATORYCLIA [id number] [address] [place] ALP [Catalytic activity/Vol] 85 U/L Normal 34-123 [facility] Comment on above: Order Comment: Speci men Type: BLOOD SPECIMENOrdering Facility: [facility] Address: [address] [place] [address] Performed By: #### 2 4323-8 ####[facility] LABORATORYCLIA [id number] [address] OF [facility] ALT With P-5'-P [Catalytic activity/Vol] 191 U/L High 7-38 [facility] Comment on above: Order Comment: Speci men Type: BLOOD SPECIMENOrdering Facility: [facility] Address: [address] [place] [address] Performed By: #### 2 4323-8 ####[facility] LABORATORYCLIA [id number] [address] OF [place] Anion gap [Moles/Vol] 8 mmol/L Normal 8-15 [facility] Comment on above: Order Comment: Speci men Type: BLOOD SPECIMENOrdering Facility: [facility] Address: [address] [place] [address] Performed By: #### 2 4323-8 ####[facility] LABORATORYCLIA [id number] [place] [address] [place] AST With P-5'-P [Catalytic activity/Vol] 48 U/L High 13-35 [facility] Comment on above: Order Comment: Speci men Type: BLOOD SPECIMENOrdering Facility: [facility] Address: [address] [place] [address] Performed By: #### 2 4323-8 ####[facility] LABORATORYCLIA [id number] [place] [address] [place] Bilirubin [Mass/Vol] 0.4 mg/dL Normal 0.2-1.3 [facility] Comment on above: Order Comment: Speci men Type: BLOOD SPECIMENOrdering Facility: [facility] Address: [address] [place] [address] Performed By: #### 2 4323-8 ####[facility] LABORATORYCLIA [id number] [place] [address] [place] Calcium [Mass/Vol] 8.4 mg/dL Low 8.5-10.2 [facility] Comment on above: Order Comment: Speci men Type: BLOOD SPECIMENOrdering Facility: [facility] Address: [address] [place] [address] Performed By: #### 2 4323-8 ####[facility]ORATORYCLIA [id number] [place] [address] [place] Chloride [Moles/Vol] 99 mmol/L Normal 98-107 [facility] Comment on above: Order Comment: Speci men Type: BLOOD SPECIMENOrdering Facility: [facility] Address: [address] [place] [address] Performed By: #### 2 4323-8 ####[facility]ORATORYCLIA [id number] [place] [address] [place] CO2 [Moles/Vol] 27 mmol/L Normal 22-30 [facility] Comment on above: Order Comment: Speci men Type: BLOOD SPECIMENOrdering Facility: [facility] Address: [address] [place] [address] Performed By: #### 2 4323-8 ####[facility] LABORATORYCLIA [id number] [place] [id number] [place] Creatinine [Mass/Vol] 0.48 mg/dL Low 0.58-0.96 [facility] Comment on above: Order Comment: Speci men Type: BLOOD SPECIMENOrdering Facility: [facility] Address: [address] [place] [address] Performed By: #### 2 4323-8 ####[facility] LABORATORYCLIA [id number] [address] Creatinine and Glomerular filtration rate.predicted panel (S/P/Bld) 97 mL/min/1.73m??? Normal >=60 [facility] Comment on above: Order Comment: Speci men Type: BLOOD SPECIMENOrdering Facility: [facility] Address: [address] [place] [address] Result Comment: Rosana mated Glomerular Filtration Rate (eGFR) is calculated using the 2020 CKD-EPI creatinine equation. This equation utilizes serum creatinine, sex, and age as parameters. The creatinine assay has traceable calibration to isotope dilution-mass spectrometry. Refer to KDIGO guidelines for clinical interpretation. In patients with unstable renal function, e.g. those with acute kidney injury, the eGFR may not accurately reflect actual GFR. Performed By: #### 2 4323-8 ####[facility] LABORATORYCLIA [id number] [place] [address] [place] Glucose [Mass/Vol] 119 mg/dL High 74-99 [facility] Comment on above: Order Comment: Antwan rowland Type: BLOOD SPECIMENOrdering Facility: [facility] Address: [address] [place] [address] Result Comment: The [place] Diabetes Association (ADA) provides guidance for cutoff values for fasting glucose and random glucose. The ADA defines fasting as no caloric intake for at least 8 hours. Fasting plasma glucose results between 100 to 125 mg/dL indicate increased risk for diabetes (prediabetes).Fasting plasma glucose results greater than or equal to 126 mg/dL meet the criteria for diagnosis of diabetes. In the absence of unequivocal hyperglycemia, results should be confirmed by repeat testing. In a patient with classic symptoms of hyperglycemia or hyperglycemic crisis, random plasma glucose results greater than or equal to 200 mg/dL meet the criteria for diagnosis of diabetes.Reference: Standards of Medical Care in Diabetes 2016, [place] Diabetes Association. Diabetes Care. 2016.39(Suppl 1). Performed By: #### 2 4323-8 ####[facility] LABORATORYCLIA [id number] [place] [address] [place] Potassium [Moles/Vol] 3.4 mmol/L Low 3.7-5.1 [facility] Comment on above: Order Comment: Speci men Type: BLOOD SPECIMENOrdering Facility: [facility] Address: [address] [place] [address] Performed By: #### 2 4323-8 ####[facility] LABORATORYCLIA [id number] [place] [address] [place] Protein [Mass/Vol] 5.4 g/dL Low 6.3-8.0 [facility] Comment on above: Order Comment: Speci men Type: BLOOD SPECIMENOrdering Facility: [facility] Address: [address] [place] [address] Performed By: #### 2 4323-8 ####[facility] LABORATORYCLIA [id number] [place] [address] [place] Sodium [Moles/Vol] 134 mmol/L Low 136-144 [facility] Comment on above: Order Comment: Speci men Type: BLOOD SPECIMENOrdering Facility: [facility] Address: [address] [place] [address] Performed By: #### 2 4323-8 ####[facility] LABORATORYCLIA [id number] [place] [address] [place] Urea nitrogen [Mass/Vol] 9 mg/dL Normal 7-21 [facility] Comment on above: Order Comment: Speci men Type: BLOOD SPECIMENOrdering Facility: [facility] Address: [address] [place] [address] Performed By: #### 2 4323-8 ####[facility] LABORATORYCLIA [id number] [address] OF [facility] THERAPY NTon 11-30-2023 THERAPY NT Normal [facility] CBC panel Auto (Bld)on 11-28 Erythrocyte distribution width (RBC) [Ratio] 15.2 % High 11.5-15.0 [facility] Comment on above: Order Comment: Speci men Type: BLOOD SPECIMENOrdering Facility: [facility] Address: [address] [place] [address] Performed By: #### 5 8410-2 ####[facility] LABORATORYCLIA [id number] [address] Hematocrit (Bld) [Volume fraction] 25.5 % Low 36.0-46.0 [facility] Comment on above: Order Comment: Speci men Type: BLOOD SPECIMENOrdering Facility: [facility] Address: [address] [place] [address] Performed By: #### 5 8410-2 ####[facility] LABORATORYCLIA [id number] [address] STATES OF [facility] Hemoglobin (Bld) [Mass/Vol] 8.0 g/dL Low 11.5-15.5 [facility] Comment on above: Order Comment: Speci men Type: BLOOD SPECIMENOrdering Facility: [facility] Address: [address] [place] [address] Performed By: #### 5 8410-2 ####[facility] LABORATORYCLIA [id number] [address] STATES [facility] MCH (RBC) [Entitic mass] 28.7 pg Normal 26.0-34.0 [facility] Comment on above: Order Comment: Speci men Type: BLOOD SPECIMENOrdering Facility: [facility] Address: [address] [place] [address] Performed By: #### 5 8410-2 ####[facility] LABORATORYCLIA [id number] [address] MCHC (RBC) [Mass/Vol] 31.4 g/dL Normal 30.5-36.0 [facility] Comment on above: Order Comment: Speci men Type: BLOOD SPECIMENOrdering Facility: [facility] Address: [address] [place] [address] Performed By: #### 5 8410-2 ####[facility] LABORATORYCLIA [id number] [address] MCV (RBC) [Entitic vol] 91.4 fL Normal 80.0-100.0 [facility] Comment on above: Order Comment: Speci men Type: BLOOD SPECIMENOrdering Facility: [facility] Address: [address] [place] [address] Performed By: #### 5 8410-2 ####[facility] LABORATORYCLIA [id number] [address] STATES [facility] Nucleated RBC (Bld) [#/Vol] 10*3/uL Normal <0.01 [facility] Comment on above: Order Comment: Speci men Type: BLOOD SPECIMENOrdering Facility: [facility] Address: [address] [place] [address] Performed By: #### 5 8410-2 ####[facility] LABORATORYCLIA [id number] [address] STATES [place] Platelet mean volume (Bld) [Entitic vol] 10.6 fL Normal 9.0-12.7 [facility] Comment on above: Order Comment: Speci men Type: BLOOD SPECIMENOrdering Facility: [facility] Address: [address] [place] [address] Performed By: #### 5 8410-2 ####[facility] LABORATORYCLIA [id number] [address] OF [place] Platelets (Bld) [#/Vol] 226 10*3/uL Normal 150-400 [facility] Comment on above: Order Comment: Speci men Type: BLOOD SPECIMENOrdering Facility: [facility] Address: [address] [place] [address] Performed By: #### 5 8410-2 ####[facility] LABORATORYCLIA [id number] [address] RBC (Bld) [#/Vol] 2.79 10*6/uL Low 3.90-5.20 [facility] Comment on above: Order Comment: Speci men Type: BLOOD SPECIMENOrdering Facility: [facility] Address: [address] [place] [address] Performed By: #### 5 8410-2 ####[facility] LABORATORYCLIA [id number] [address] WBC (Bld) [#/Vol] 13.50 10*3/uL High 3.70-11.00 [facility] Comment on above: Order Comment: Speci men Type: BLOOD SPECIMENOrdering Facility: [facility] Address: [address] [place] [address] Performed By: #### 5 8410-2 ####[facility] LABORATORYCLIA [id number] [address] Comprehensive metabolic 2000 panelon 11-29-2023 Albumin [Mass/Vol] 2.9 g/dL Low 3.9-4.9 [facility] Comment on above: Order Comment: Speci men Type: BLOOD SPECIMENOrdering Facility: [facility] Address: [address] [place] [address] Performed By: #### 2 4323-8 ####[facility] LABORATORYCLIA [id number] [address] ALP [Catalytic activity/Vol] 77 U/L Normal 34-123 [facility] Comment on above: Order Comment: Speci men Type: BLOOD SPECIMENOrdering Facility: [facility] Address: [address] [place] [address] Performed By: #### 2 4323-8 ####[facility] LABORATORYCLIA [id number] [place] [address] [place] ALT With P-5'-P [Catalytic activity/Vol] 270 U/L High 7-38 [facility] Comment on above: Order Comment: Speci men Type: BLOOD SPECIMENOrdering Facility: [facility] Address: [address] [place] [address] Performed By: #### 2 4323-8 ####[facility]ORATORYCLIA [id number] [place] [address] [place] Anion gap [Moles/Vol] 9 mmol/L Normal 8-15 [facility] Comment on above: Order Comment: Speci men Type: BLOOD SPECIMENOrdering Facility: [facility] Address: [address] [place] [address] Performed By: #### 2 4323-8 ####[facility]ORATORYCLIA [id number] [place] [address] [place] AST With P-5'-P [Catalytic activity/Vol] 111 U/L High 13-35 [facility] Comment on above: Order Comment: Speci men Type: BLOOD SPECIMENOrdering Facility: [facility] Address: [address] [place] [address] Performed By: #### 2 4323-8 ####[facility]ORATORYCLIA [id number] [place] [address] [place] Bilirubin [Mass/Vol] 0.6 mg/dL Normal 0.2-1.3 [facility] Comment on above: Order Comment: Speci men Type: BLOOD SPECIMENOrdering Facility: [facility] Address: [address] [place] [address] Performed By: #### 2 4323-8 ####[facility]ORATORYCLIA [id number] [place] [address] [place] Calcium [Mass/Vol] 8.4 mg/dL Low 8.5-10.2 [facility] Comment on above: Order Comment: Speci men Type: BLOOD SPECIMENOrdering Facility: [facility] Address: [address] [place] [address] Performed By: #### 2 4323-8 ####[facility]ORATORYCLIA [id number] [address] STATES OF [facility] Chloride [Moles/Vol] 99 mmol/L Normal 98-107 [facility] Comment on above: Order Comment: Speci men Type: BLOOD SPECIMENOrdering Facility: [facility] Address: [address] [place] [address] Performed By: #### 2 4323-8 ####[facility] LABORATORYCLIA [id number] [address] STATES [place] CO2 [Moles/Vol] 27 mmol/L Normal 22-30 [facility] Comment on above: Order Comment: Speci men Type: BLOOD SPECIMENOrdering Facility: [facility] Address: [address] [place] [address] Performed By: #### 2 4323-8 ####[facility] LABORATORYCLIA [id number] [address] OF [facility] Creatinine [Mass/Vol] 0.57 mg/dL Low 0.58-0.96 [facility] Comment on above: Order Comment: Speci men Type: BLOOD SPECIMENOrdering Facility: [facility] Address: [address] [place] [address] Performed By: #### 2 4323-8 ####[facility] LABORATORYCLIA [id number] [address] Creatinine and Glomerular filtration rate.predicted panel (S/P/Bld) 93 mL/min/1.73m??? Normal >=60 [facility] Comment on above: Order Comment: Speci men Type: BLOOD SPECIMENOrdering Facility: [facility] Address: [address] [place] [address] Result Comment: Rosana mated Glomerular Filtration Rate (eGFR) is calculated using the 2020 CKD-EPI creatinine equation. This equation utilizes serum creatinine, sex, and age as parameters. The creatinine assay has traceable calibration to isotope dilution-mass spectrometry. Refer to KDIGO guidelines for clinical interpretation. In patients with unstable renal function, e.g. those with acute kidney injury, the eGFR may not accurately reflect actual GFR. Performed By: #### 2 4323-8 ####[facility] LABORATORYCLIA [id number] [place] [address] [place] Glucose [Mass/Vol] 96 mg/dL Normal 74-99 [facility] Comment on above: Order Comment: Speci men Type: BLOOD SPECIMENOrdering Facility: [facility] Address: [address] [place] [address] Result Comment: The [place] Diabetes Association (ADA) provides guidance for cutoff values for fasting glucose and random glucose. The ADA defines fasting as no caloric intake for at least 8 hours. Fasting plasma glucose results between 100 to 125 mg/dL indicate increased risk for diabetes (prediabetes).Fasting plasma glucose results greater than or equal to 126 mg/dL meet the criteria for diagnosis of diabetes. In the absence of unequivocal hyperglycemia, results should be confirmed by repeat testing. In a patient with classic symptoms of hyperglycemia or hyperglycemic crisis, random plasma glucose results greater than or equal to 200 mg/dL meet the criteria for diagnosis of diabetes.Reference: Standards of Medical Care in Diabetes 2016, [place] [employer] Association. Diabetes Care. 2016.39(Suppl 1). Performed By: #### 2 4323-8 ####[facility] LABORATORYCLIA [id number] [place] [address] [place] Potassium [Moles/Vol] 3.8 mmol/L Normal 3.7-5.1 [facility] Comment on above: Order Comment: Antwan kashif Type: BLOOD SPECIMENOrdering Facility: [facility] Address: [address] [place] [address] Performed By: #### 2 4323-8 ####[facility] LABORATORYCLIA [id number] [place] [address] [place] Protein [Mass/Vol] 5.2 g/dL Low 6.3-8.0 [facility] Comment on above: Order Comment: Speci men Type: BLOOD SPECIMENOrdering Facility: [facility] Address: [address] [place] [address] Performed By: #### 2 4323-8 ####[facility] LABORATORYCLIA [id number] [place] [address] [place] Sodium [Moles/Vol] 135 mmol/L Low 136-144 [facility] Comment on above: Order Comment: Speci men Type: BLOOD SPECIMENOrdering Facility: [facility] Address: [address] [place] [address] Performed By: #### 2 4323-8 ####[facility] LABORATORYCLIA [id number] [place] [id number] [place] Urea nitrogen [Mass/Vol] 9 mg/dL Normal 7-21 [facility] Comment on above: Order Comment: Speci men Type: BLOOD SPECIMENOrdering Facility: [facility] Address: [address] [place] [address] Performed By: #### 2 4323-8 ####[facility] LABORATORYCLIA [id number] [address] STATES [place] XR UPPER GI SINGLE CONTRASTo n 11-29-2023 XR UPPER GI SINGLE CONTRAST Normal [facility] ALLIED HEALTHon 11-28-2023 ALLIED HEALTH Normal [facility] CASE MANAGEMon 11-28-2023 CASE MANAGEM Normal [facility] CASE MANAGEM Normal [facility] CASE MANAGEM Normal [facility] CBC panel Auto (Bld)on 11-27 Erythrocyte distribution width (RBC) [Ratio] 15.3 % High 11.5-15.0 [facility] Comment on above: Order Comment: Speci men Type: BLOOD SPECIMENOrdering Facility: [facility] Address: [address] [place] [address] Performed By: #### 5 8410-2 ####[facility] LABORATORYCLIA [id number] [address] [place] Hematocrit (Bld) [Volume fraction] 28.1 % Low 36.0-46.0 [facility] Comment on above: Order Comment: Speci men Type: BLOOD SPECIMENOrdering Facility: [facility] Address: [address] [place] [address] Performed By: #### 5 8410-2 ####[facility] LABORATORYCLIA [id number] [address] [place] Hemoglobin (Bld) [Mass/Vol] 8.8 g/dL Low 11.5-15.5 [facility] Comment on above: Order Comment: Speci men Type: BLOOD SPECIMENOrdering Facility: [facility] Address: [address] [place] [address] Performed By: #### 5 8410-2 ####[facility] LABORATORYCLIA [id number] [address] STATES OF [facility] MCH (RBC) [Entitic mass] 28.4 pg Normal 26.0-34.0 [facility] Comment on above: Order Comment: Speci men Type: BLOOD SPECIMENOrdering Facility: [facility] Address: [address] [place] [address] Performed By: #### 5 8410-2 ####[facility] LABORATORYCLIA [id number] [address] [place] MCHC (RBC) [Mass/Vol] 31.3 g/dL Normal 30.5-36.0 [facility] Comment on above: Order Comment: Speci men Type: BLOOD SPECIMENOrdering Facility: [facility] Address: [address] [place] [address] Performed By: #### 5 8410-2 ####[facility] LABORATORYCLIA [id number] [address] STATES [facility] MCV (RBC) [Entitic vol] 90.6 fL Normal 80.0-100.0 [facility] Comment on above: Order Comment: Speci men Type: BLOOD SPECIMENOrdering Facility: [facility] Address: [address] [place] [address] Performed By: #### 5 8410-2 ####[facility] LABORATORYCLIA [id number] [address] Nucleated RBC (Bld) [#/Vol] 10*3/uL Normal <0.01 [facility] Comment on above: Order Comment: Speci men Type: BLOOD SPECIMENOrdering Facility: [facility] Address: [address] [place] [address] Performed By: #### 5 8410-2 ####[facility] LABORATORYCLIA [id number] [address] [place] Platelet mean volume (Bld) [Entitic vol] 10.9 fL Normal 9.0-12.7 [facility] Comment on above: Order Comment: Speci men Type: BLOOD SPECIMENOrdering Facility: [facility] Address: [address] [place] [address] Performed By: #### 5 8410-2 ####[facility] LABORATORYCLIA [id number] [place] [address] [place] Platelets (Bld) [#/Vol] 239 10*3/uL Normal 150-400 [facility] Comment on above: Order Comment: Speci men Type: BLOOD SPECIMENOrdering Facility: [facility] Address: [address] [place] [address] Performed By: #### 5 8410-2 ####[facility] LABORATORYCLIA [id number] [place] [address] [place] RBC (Bld) [#/Vol] 3.10 10*6/uL Low 3.90-5.20 [facility] Comment on above: Order Comment: Speci men Type: BLOOD SPECIMENOrdering Facility: [facility] Address: [address] [place] [address] Performed By: #### 5 8410-2 ####[facility] LABORATORYCLIA [id number] [place] [address] [place] WBC (Bld) [#/Vol] 14.16 10*3/uL High 3.70-11.00 [facility] Comment on above: Order Comment: Speci men Type: BLOOD SPECIMENOrdering Facility: [facility] Address: [address] [place] [address] Performed By: #### 5 8410-2 ####[facility] LABORATORYCLIA [id number] [address] OF [place] CONSULT PROGon 11-28-2023 CONSULT PROG Normal [facility] Comprehensive metabolic 2000 panelon 11-28-2023 Albumin [Mass/Vol] 3.0 g/dL Low 3.9-4.9 [facility] Comment on above: Order Comment: Speci men Type: BLOOD SPECIMENOrdering Facility: [facility] Address: [address] [place] [address] Performed By: #### 2 4323-8 ####[facility]ORATORYCLIA [id number] [address] [place] ALP [Catalytic activity/Vol] 85 U/L Normal 34-123 [facility] Comment on above: Order Comment: Speci men Type: BLOOD SPECIMENOrdering Facility: [facility] Address: [address] [place] [address] Performed By: #### 2 4323-8 ####[facility] LABORATORYCLIA [id number] [address] [place] ALT With P-5'-P [Catalytic activity/Vol] 444 U/L High 7-38 [facility] Comment on above: Order Comment: Speci men Type: BLOOD SPECIMENOrdering Facility: [facility] Address: [address] [place] [address] Performed By: #### 2 4323-8 ####[facility]ORATORYCLIA [id number] [address] STATES [facility] Anion gap [Moles/Vol] 9 mmol/L Normal 8-15 [facility] Comment on above: Order Comment: Speci men Type: BLOOD SPECIMENOrdering Facility: [facility] Address: [address] [place] [address] Performed By: #### 2 4323-8 ####[facility]ORATORYCLIA [id number] [place] [address] [place] AST With P-5'-P [Catalytic activity/Vol] 295 U/L High 13-35 [facility] Comment on above: Order Comment: Speci men Type: BLOOD SPECIMENOrdering Facility: [facility] Address: [address] [place] [address] Performed By: #### 2 4323-8 ####[facility]ORATORYCLIA [id number] [place] [address] [place] Bilirubin [Mass/Vol] 0.5 mg/dL Normal 0.2-1.3 [facility] Comment on above: Order Comment: Speci men Type: BLOOD SPECIMENOrdering Facility: [facility] Address: [address] [place] [address] Performed By: #### 2 4323-8 ####[facility]ORATORYCLIA [id number] [place] [address] [place] Calcium [Mass/Vol] 8.6 mg/dL Normal 8.5-10.2 [facility] Comment on above: Order Comment: Speci men Type: BLOOD SPECIMENOrdering Facility: [facility] Address: [address] [place] [address] Performed By: #### 2 4323-8 ####[facility] LABORATORYCLIA [id number] [place] [address] [place] Chloride [Moles/Vol] 101 mmol/L Normal 98-107 [facility] Comment on above: Order Comment: Speci men Type: BLOOD SPECIMENOrdering Facility: [facility] Address: [address] [place] [address] Performed By: #### 2 4323-8 ####[facility] LABORATORYCLIA [id number] [place] [address] [place] CO2 [Moles/Vol] 26 mmol/L Normal 22-30 [facility] Comment on above: Order Comment: Speci men Type: BLOOD SPECIMENOrdering Facility: [facility] Address: [address] [place] [address] Performed By: #### 2 4323-8 ####[facility] LABORATORYCLIA [id number] [place] [address] [place] Creatinine [Mass/Vol] 0.65 mg/dL Normal 0.58-0.96 [facility] Comment on above: Order Comment: Speci men Type: BLOOD SPECIMENOrdering Facility: [facility] Address: [address] [place] [address] Performed By: #### 2 4323-8 ####[facility] LABORATORYCLIA [id number] [place] [address] [place] Creatinine and Glomerular filtration rate.predicted panel (S/P/Bld) 90 mL/min/1.73m??? Normal >=60 [facility] Comment on above: Order Comment: Speci kashif Type: BLOOD SPECIMENOrdering Facility: [facility] Address: [address] [place] [address] Result Comment: Rosana mated Glomerular Filtration Rate (eGFR) is calculated using the 2020 CKD-EPI creatinine equation. This equation utilizes serum creatinine, sex, and age as parameters. The creatinine assay has traceable calibration to isotope dilution-mass spectrometry. Refer to KDIGO guidelines for clinical interpretation. In patients with unstable renal function, e.g. those with acute kidney injury, the eGFR may not accurately reflect actual GFR. Performed By: #### 2 4323-8 ####[facility] LABORATORYCLIA [id number] [place] [address] [place] Glucose [Mass/Vol] 97 mg/dL Normal 74-99 [facility] Comment on above: Order Comment: Antwan kashif Type: BLOOD SPECIMENOrdering Facility: [facility] Address: [address] [place] [address] Result Comment: The [place] Diabetes Association (ADA) provides guidance for cutoff values for fasting glucose and random glucose. The ADA defines fasting as no caloric intake for at least 8 hours. Fasting plasma glucose results between 100 to 125 mg/dL indicate increased risk for diabetes (prediabetes).Fasting plasma glucose results greater than or equal to 126 mg/dL meet the criteria for diagnosis of diabetes. In the absence of unequivocal hyperglycemia, results should be confirmed by repeat testing. In a patient with classic symptoms of hyperglycemia or hyperglycemic crisis, random plasma glucose results greater than or equal to 200 mg/dL meet the criteria for diagnosis of diabetes.Reference: Standards of Medical Care in Diabetes 2016, [place] Diabetes Association. Diabetes Care. 2016.39(Suppl 1). Performed By: #### 2 4323-8 ####[facility] LABORATORYCLIA [id number] [place] [id number] [place] Potassium [Moles/Vol] 4.3 mmol/L Normal 3.7-5.1 [facility] Comment on above: Order Comment: Speci men Type: BLOOD SPECIMENOrdering Facility: [facility] Address: [address] [place] [address] Performed By: #### 2 4323-8 ####[facility]ORATORYCLIA [id number] [place] [address] [place] Protein [Mass/Vol] 5.4 g/dL Low 6.3-8.0 [facility] Comment on above: Order Comment: Speci men Type: BLOOD SPECIMENOrdering Facility: [facility] Address: [address] [place] [address] Performed By: #### 2 4323-8 ####[facility] LABORATORYCLIA [id number] [place] [address] [place] Sodium [Moles/Vol] 136 mmol/L Normal 136-144 [facility] Comment on above: Order Comment: Speci men Type: BLOOD SPECIMENOrdering Facility: [facility] Address: [address] [place] [address] Performed By: #### 2 4323-8 ####[facility] LABORATORYCLIA [id number] [place] [address] [place] Urea nitrogen [Mass/Vol] 10 mg/dL Normal 7-21 [facility] Comment on above: Order Comment: Speci men Type: BLOOD SPECIMENOrdering Facility: [facility] Address: [address] [place] [address] Performed By: #### 2 4323-8 ####[facility] LABORATORYCLIA [id number] [place] [address] [place] NUTRITIONon 11-28-2023 NUTRITION Normal [facility] THERAPY NTon 11-28-2023 THERAPY NT Normal [facility] THERAPY NT Normal [facility] Bilirub Conj SerPl-mCncon Bilirubin.conjugat ed [Mass/Vol] 0.3 mg/dL High <0.2 [facility] Comment on above: Order Comment: Speci men Type: BLOOD SPECIMENOrdering Facility: [facility] Address: [address] [place] [address] Performed By: #### 1 5152-2, 75773-3 ####[facility] LABORATORYCLIA [id number] [address] CBC panel Auto (Bld)on 11-26 Erythrocyte distribution width (RBC) [Ratio] 15.3 % High 11.5-15.0 [facility] Comment on above: Order Comment: Speci men Type: BLOOD SPECIMENOrdering Facility: [facility] Address: [address] [place] [address] Performed By: #### 5 8410-2 ####[facility] LABORATORYCLIA [id number] [address] Hematocrit (Bld) [Volume fraction] 35.2 % Low 36.0-46.0 [facility] Comment on above: Order Comment: Speci men Type: BLOOD SPECIMENOrdering Facility: [facility] Address: [address] [place] [address] Performed By: #### 5 8410-2 ####[facility] LABORATORYCLIA [id number] [address] Hemoglobin (Bld) [Mass/Vol] 10.9 g/dL Low 11.5-15.5 [facility] Comment on above: Order Comment: Speci men Type: BLOOD SPECIMENOrdering Facility: [facility] Address: [address] [place] [address] Performed By: #### 5 8410-2 ####[facility] LABORATORYCLIA [id number] [address] [place] MCH (RBC) [Entitic mass] 28.8 pg Normal 26.0-34.0 [facility] Comment on above: Order Comment: Speci men Type: BLOOD SPECIMENOrdering Facility: [facility] Address: [address] [place] [address] Performed By: #### 5 8410-2 ####[facility] LABORATORYCLIA [id number] [address] MCHC (RBC) [Mass/Vol] 31.0 g/dL Normal 30.5-36.0 [facility] Comment on above: Order Comment: Speci men Type: BLOOD SPECIMENOrdering Facility: [facility] Address: [address] [place] [address] Performed By: #### 5 8410-2 ####[facility] LABORATORYCLIA [id number] [address] [place] MCV (RBC) [Entitic vol] 92.9 fL Normal 80.0-100.0 [facility] Comment on above: Order Comment: Speci men Type: BLOOD SPECIMENOrdering Facility: [facility] Address: [address] [place] [address] Performed By: #### 5 8410-2 ####[facility] LABORATORYCLIA [id number] [address] STATES [facility] Nucleated RBC (Bld) [#/Vol] 10*3/uL Normal <0.01 [facility] Comment on above: Order Comment: Speci men Type: BLOOD SPECIMENOrdering Facility: [facility] Address: [address] [place] [address] Performed By: #### 5 8410-2 ####[facility] LABORATORYCLIA [id number] [address] [place] Platelet mean volume (Bld) [Entitic vol] 10.8 fL Normal 9.0-12.7 [facility] Comment on above: Order Comment: Speci men Type: BLOOD SPECIMENOrdering Facility: [facility] Address: [address] [place] [address] Performed By: #### 5 8410-2 ####[facility] LABORATORYCLIA [id number] [address] [place] Platelets (Bld) [#/Vol] 257 10*3/uL Normal 150-400 [facility] Comment on above: Order Comment: Speci men Type: BLOOD SPECIMENOrdering Facility: [facility] Address: [address] [place] [address] Performed By: #### 5 8410-2 ####[facility] LABORATORYCLIA [id number] [address] STATES OF [facility] RBC (Bld) [#/Vol] 3.79 10*6/uL Low 3.90-5.20 [facility] Comment on above: Order Comment: Speci men Type: BLOOD SPECIMENOrdering Facility: [facility] Address: [address] [place] [address] Performed By: #### 5 8410-2 ####[facility] LABORATORYCLIA [id number] [address] STATES OF [facility] WBC (Bld) [#/Vol] 13.21 10*3/uL High 3.70-11.00 [facility] Comment on above: Order Comment: Speci men Type: BLOOD SPECIMENOrdering Facility: [facility] Address: [address] [place] [address] Performed By: #### 5 8410-2 ####[facility] LABORATORYCLIA [id number] [address] OF [facility] CONSULT PROGon 11-27-2023 CONSULT PROG Normal [facility] Comprehensive metabolic 2000 panelon 11-27-2023 Albumin [Mass/Vol] 3.0 g/dL Low 3.9-4.9 [facility] Comment on above: Order Comment: Speci men Type: BLOOD SPECIMENOrdering Facility: [facility] Address: [address] [place] [address] Performed By: #### 1 5152-2, 61721-8 ####[facility] LABORATORYCLIA [id number] [address] [place] ALP [Catalytic activity/Vol] 94 U/L Normal 34-123 [facility] Comment on above: Order Comment: Speci men Type: BLOOD SPECIMENOrdering Facility: [facility] Address: [address] [place] [address] Performed By: #### 1 5152-2, 89711-5 ####[facility] LABORATORYCLIA [id number] [place] [address] [place] ALT With P-5'-P [Catalytic activity/Vol] 444 U/L High 7-38 [facility] Comment on above: Order Comment: Speci men Type: BLOOD SPECIMENOrdering Facility: [facility] Address: [address] [place] [address] Performed By: #### 1 5152-2, 59865-5 ####[facility] LABORATORYCLIA [id number] [place] [address] [place] Anion gap [Moles/Vol] 12 mmol/L Normal 8-15 [facility] Comment on above: Order Comment: Speci men Type: BLOOD SPECIMENOrdering Facility: [facility] Address: [address] [place] [address] Performed By: #### 1 5152-2, ####[facility] LABORATORYCLIA [id number] [address] STATES [place] AST With P-5'-P [Catalytic activity/Vol] 424 U/L High 13-35 [facility] Comment on above: Order Comment: Speci men Type: BLOOD SPECIMENOrdering Facility: [facility] Address: [address] [place] [address] Performed By: #### 1 5152-2, 10983-3 ####[facility] LABORATORYCLIA [id number] [place] [address] [place] Bilirubin [Mass/Vol] 0.6 mg/dL Normal 0.2-1.3 [facility] Comment on above: Order Comment: Speci men Type: BLOOD SPECIMENOrdering Facility: [facility] Address: [address] [place] [address] Performed By: #### 1 5152-2, 84240-0 ####[facility] LABORATORYCLIA [id number] [address] [place] Calcium [Mass/Vol] 8.5 mg/dL Normal 8.5-10.2 [facility] Comment on above: Order Comment: Speci men Type: BLOOD SPECIMENOrdering Facility: [facility] Address: [address] [place] [address] Performed By: #### 1 5152-2, 33773-8 ####[facility] LABORATORYCLIA [id number] [address] STATES OF [facility] Chloride [Moles/Vol] 103 mmol/L Normal 98-107 [facility] Comment on above: Order Comment: Speci men Type: BLOOD SPECIMENOrdering Facility: [facility] Address: [address] [place] [address] Performed By: #### 1 5152-2, 19617-0 ####[facility] LABORATORYCLIA [id number] [address] STATES [place] CO2 [Moles/Vol] 23 mmol/L Normal 22-30 [facility] Comment on above: Order Comment: Speci men Type: BLOOD SPECIMENOrdering Facility: [facility] Address: [address] [place] [address] Performed By: #### 1 5152-2, 48827-8 ####[facility] LABORATORYCLIA [id number] [address] [place] Creatinine [Mass/Vol] 0.68 mg/dL Normal 0.58-0.96 [facility] Comment on above: Order Comment: Speci men Type: BLOOD SPECIMENOrdering Facility: [facility] Address: [address] [place] [address] Performed By: #### 1 5152-2, 66080-3 ####[facility] LABORATORYCLIA [id number] [address] Creatinine and Glomerular filtration rate.predicted panel (S/P/Bld) 89 mL/min/1.73m??? Normal >=60 [facility] Comment on above: Order Comment: Speci men Type: BLOOD SPECIMENOrdering Facility: [facility] Address: [address] [place] [address] Result Comment: Rosana mated Glomerular Filtration Rate (eGFR) is calculated using the 2020 CKD-EPI creatinine equation. This equation utilizes serum creatinine, sex, and age as parameters. The creatinine assay has traceable calibration to isotope dilution-mass spectrometry. Refer to KDIGO guidelines for clinical interpretation. In patients with unstable renal function, e.g. those with acute kidney injury, the eGFR may not accurately reflect actual GFR. Performed By: #### 1 5152-2, 74400-6 ####[facility] LABORATORYCLIA [id number] [place] [address] [place] Glucose [Mass/Vol] 135 mg/dL High 74-99 [facility] Comment on above: Order Comment: Antwan rowland Type: BLOOD SPECIMENOrdering Facility: [facility] Address: [address] [place] [address] Result Comment: The [place] Diabetes Association (ADA) provides guidance for cutoff values for fasting glucose and random glucose. The ADA defines fasting as no caloric intake for at least 8 hours. Fasting plasma glucose results between 100 to 125 mg/dL indicate increased risk for diabetes (prediabetes).Fasting plasma glucose results greater than or equal to 126 mg/dL meet the criteria for diagnosis of diabetes. In the absence of unequivocal hyperglycemia, results should be confirmed by repeat testing. In a patient with classic symptoms of hyperglycemia or hyperglycemic crisis, random plasma glucose results greater than or equal to 200 mg/dL meet the criteria for diagnosis of diabetes.Reference: Standards of Medical Care in Diabetes 2016, [place] [employer] Association. Diabetes Care. 2016.39(Suppl 1). Performed By: #### 1 5152-2, 85481-0 ####[facility] LABORATORYCLIA [id number] [place] [address] [place] Potassium [Moles/Vol] 4.5 mmol/L Normal 3.7-5.1 [facility] Comment on above: Order Comment: Antwan rowland Type: BLOOD SPECIMENOrdering Facility: [facility] Address: [address] [place] [address] Performed By: #### 1 5152-2, 69501-0 ####[facility] LABORATORYCLIA [id number] [place] [address] [place] Protein [Mass/Vol] 5.4 g/dL Low 6.3-8.0 [facility] Comment on above: Order Comment: Antwan rowland Type: BLOOD SPECIMENOrdering Facility: [facility] Address: [address] [place] [address] Performed By: #### 1 5152-2, 17931-5 ####[facility] LABORATORYCLIA [id number] [place] [id number] [place] Sodium [Moles/Vol] 138 mmol/L Normal 136-144 [facility] Comment on above: Order Comment: Speci men Type: BLOOD SPECIMENOrdering Facility: [facility] Address: [address] [place] [address] Performed By: #### 1 5152-2, 54794-2 ####[facility] LABORATORYCLIA [id number] [address] [place] Urea nitrogen [Mass/Vol] 11 mg/dL Normal 7-21 [facility] Comment on above: Order Comment: Speci men Type: BLOOD SPECIMENOrdering Facility: [facility] Address: [address] [place] [address] Performed By: #### 1 5152-2, 19147-8 ####[facility] LABORATORYCLIA [id number] [address] [place] ANES POSTPROC EVALon 024 ANES POSTPROC EVAL Normal [facility] ANES PRE-OPon 11-26-2023 ANES PRE-OP Normal [facility] BRIEF OP NOTon 11-26-2023 BRIEF OP NOT Normal [facility] CBC panel Auto (Bld)on 11-25 Erythrocyte distribution width (RBC) [Ratio] 14.4 % Normal 11.5-15.0 [facility] Comment on above: Order Comment: Speci men Type: BLOOD SPECIMENOrdering Facility: [facility] Address: [address] [place] [address] Performed By: #### 5 8410-2 ####[facility] LABORATORYCLIA [id number] [address] [place] Hematocrit (Bld) [Volume fraction] 35.6 % Low 36.0-46.0 [facility] Comment on above: Order Comment: Speci men Type: BLOOD SPECIMENOrdering Facility: [facility] Address: [address] [place] [address] Performed By: #### 5 8410-2 ####[facility] LABORATORYCLIA [id number] [address] STATES OF [facility] Hemoglobin (Bld) [Mass/Vol] 11.3 g/dL Low 11.5-15.5 [facility] Comment on above: Order Comment: Speci men Type: BLOOD SPECIMENOrdering Facility: [facility] Address: [address] [place] [address] Performed By: #### 5 8410-2 ####[facility] LABORATORYCLIA [id number] [address] STATES OF [facility] MCH (RBC) [Entitic mass] 28.5 pg Normal 26.0-34.0 [facility] Comment on above: Order Comment: Speci men Type: BLOOD SPECIMENOrdering Facility: [facility] Address: [address] [place] [address] Performed By: #### 5 8410-2 ####[facility] LABORATORYCLIA [id number] [address] STATES [facility] MCHC (RBC) [Mass/Vol] 31.7 g/dL Normal 30.5-36.0 [facility] Comment on above: Order Comment: Speci men Type: BLOOD SPECIMENOrdering Facility: [facility] Address: [address] [place] [address] Performed By: #### 5 8410-2 ####[facility] LABORATORYCLIA [id number] [address] [place] MCV (RBC) [Entitic vol] 89.9 fL Normal 80.0-100.0 [facility] Comment on above: Order Comment: Speci men Type: BLOOD SPECIMENOrdering Facility: [facility] Address: [address] [place] [address] Performed By: #### 5 8410-2 ####[facility] LABORATORYCLIA [id number] [place] [address] [place] Nucleated RBC (Bld) [#/Vol] 10*3/uL Normal <0.01 [facility] Comment on above: Order Comment: Speci men Type: BLOOD SPECIMENOrdering Facility: [facility] Address: [address] [place] [address] Performed By: #### 5 8410-2 ####[facility] LABORATORYCLIA [id number] [place] [address] [place] Platelet mean volume (Bld) [Entitic vol] 10.7 fL Normal 9.0-12.7 [facility] Comment on above: Order Comment: Speci men Type: BLOOD SPECIMENOrdering Facility: [facility] Address: [address] [place] [address] Performed By: #### 5 8410-2 ####[facility] LABORATORYCLIA [id number] [address] [place] Platelets (Bld) [#/Vol] 224 10*3/uL Normal 150-400 [facility] Comment on above: Order Comment: Speci men Type: BLOOD SPECIMENOrdering Facility: [facility] Address: [address] [place] [address] Performed By: #### 5 8410-2 ####[facility] LABORATORYCLIA [id number] [place] [address] [place] RBC (Bld) [#/Vol] 3.96 10*6/uL Normal 3.90-5.20 [facility] Comment on above: Order Comment: Speci men Type: BLOOD SPECIMENOrdering Facility: [facility] Address: [address] [place] [address] Performed By: #### 5 8410-2 ####[facility] LABORATORYCLIA [id number] [address] [place] WBC (Bld) [#/Vol] 9.51 10*3/uL Normal 3.70-11.00 [facility] Comment on above: Order Comment: Speci men Type: BLOOD SPECIMENOrdering Facility: [facility] Address: [address] [place] [address] Performed By: #### 5 8410-2 ####[facility]ORATORYCLIA [id number] [address] Comprehensive metabolic 2000 panelon 11-26-2023 Albumin [Mass/Vol] 3.8 g/dL Low 3.9-4.9 [facility] Comment on above: Order Comment: Speci men Type: BLOOD SPECIMENOrdering Facility: [facility] Address: [address] [place] [address] Performed By: #### 2 4323-8 ####[facility] LABORATORYCLIA [id number] [address] [place] ALP [Catalytic activity/Vol] 83 U/L Normal 34-123 [facility] Comment on above: Order Comment: Speci men Type: BLOOD SPECIMENOrdering Facility: [facility] Address: [address] [place] [address] Performed By: #### 2 4323-8 ####[facility] LABORATORYCLIA [id number] [address] [place] ALT With P-5'-P [Catalytic activity/Vol] 95 U/L High 7-38 [facility] Comment on above: Order Comment: Speci men Type: BLOOD SPECIMENOrdering Facility: [facility] Address: [address] [place] [address] Performed By: #### 2 4323-8 ####[facility]ORATORYCLIA [id number] [address] Anion gap [Moles/Vol] 10 mmol/L Normal 8-15 [facility] Comment on above: Order Comment: Speci men Type: BLOOD SPECIMENOrdering Facility: [facility] Address: [address] [place] [address] Performed By: #### 2 4323-8 ####[facility]ORATORYCLIA [id number] [address] [place] AST With P-5'-P [Catalytic activity/Vol] 78 U/L High 13-35 [facility] Comment on above: Order Comment: Speci men Type: BLOOD SPECIMENOrdering Facility: [facility] Address: [address] [place] [address] Performed By: #### 2 4323-8 ####[facility]ORATORYCLIA [id number] [place] [address] [place] Bilirubin [Mass/Vol] 0.5 mg/dL Normal 0.2-1.3 [facility] Comment on above: Order Comment: Speci men Type: BLOOD SPECIMENOrdering Facility: [facility] Address: [address] [place] [address] Performed By: #### 2 4323-8 ####[facility]ORATORYCLIA [id number] [place] [address] [place] Calcium [Mass/Vol] 9.5 mg/dL Normal 8.5-10.2 [facility] Comment on above: Order Comment: Speci men Type: BLOOD SPECIMENOrdering Facility: [facility] Address: [address] [place] [address] Performed By: #### 2 4323-8 ####[facility]ORATORYCLIA [id number] [place] [address] [place] Chloride [Moles/Vol] 104 mmol/L Normal 98-107 [facility] Comment on above: Order Comment: Speci men Type: BLOOD SPECIMENOrdering Facility: [facility] Address: [address] [place] [address] Performed By: #### 2 4323-8 ####[facility]ORATORYCLIA [id number] [place] [address] [place] CO2 [Moles/Vol] 25 mmol/L Normal 22-30 [facility] Comment on above: Order Comment: Speci men Type: BLOOD SPECIMENOrdering Facility: [facility] Address: [address] [place] [address] Performed By: #### 2 4323-8 ####[facility]ORATORYCLIA [id number] [place] [address] [place] Creatinine [Mass/Vol] 0.72 mg/dL Normal 0.58-0.96 [facility] Comment on above: Order Comment: Antwan rowland Type: BLOOD SPECIMENOrdering Facility: [facility] Address: [address] [place] [address] Performed By: #### 2 4323-8 ####[facility] LABORATORYCLIA [id number] [place] [address] [place] Creatinine and Glomerular filtration rate.predicted panel (S/P/Bld) 86 mL/min/1.73m??? Normal >=60 [facility] Comment on above: Order Comment: Antwan rowland Type: BLOOD SPECIMENOrdering Facility: [facility] Address: [address] [place] [address] Result Comment: Rosana mated Glomerular Filtration Rate (eGFR) is calculated using the 2020 CKD-EPI creatinine equation. This equation utilizes serum creatinine, sex, and age as parameters. The creatinine assay has traceable calibration to isotope dilution-mass spectrometry. Refer to KDIGO guidelines for clinical interpretation. In patients with unstable renal function, e.g. those with acute kidney injury, the eGFR may not accurately reflect actual GFR. Performed By: #### 2 4323-8 ####[facility] LABORATORYCLIA [id number] [place] [address] [place] Glucose [Mass/Vol] 108 mg/dL High 74-99 [facility] Comment on above: Order Comment: Antwan kashif Type: BLOOD SPECIMENOrdering Facility: [facility] Address: [address] [place] [address] Result Comment: The [place] Diabetes Association (ADA) provides guidance for cutoff values for fasting glucose and random glucose. The ADA defines fasting as no caloric intake for at least 8 hours. Fasting plasma glucose results between 100 to 125 mg/dL indicate increased risk for diabetes (prediabetes).Fasting plasma glucose results greater than or equal to 126 mg/dL meet the criteria for diagnosis of diabetes. In the absence of unequivocal hyperglycemia, results should be confirmed by repeat testing. In a patient with classic symptoms of hyperglycemia or hyperglycemic crisis, random plasma glucose results greater than or equal to 200 mg/dL meet the criteria for diagnosis of diabetes.Reference: Standards of Medical Care in Diabetes 2016, [place] Diabetes Association. Diabetes Care. 2016.39(Suppl 1). Performed By: #### 2 4323-8 ####[facility]ORATORYCLIA [id number] [address] [place] Potassium [Moles/Vol] 4.2 mmol/L Normal 3.7-5.1 [facility] Comment on above: Order Comment: Speci men Type: BLOOD SPECIMENOrdering Facility: [facility] Address: [address] [place] [address] Performed By: #### 2 4323-8 ####[facility]ORATORYCLIA [id number] [place] [address] [place] Protein [Mass/Vol] 6.8 g/dL Normal 6.3-8.0 [facility] Comment on above: Order Comment: Speci men Type: BLOOD SPECIMENOrdering Facility: [facility] Address: [address] [place] [address] Performed By: #### 2 4323-8 ####[facility] LABORATORYCLIA [id number] [address] [place] Sodium [Moles/Vol] 139 mmol/L Normal 136-144 [facility] Comment on above: Order Comment: Speci men Type: BLOOD SPECIMENOrdering Facility: [facility] Address: [address] [place] [address] Performed By: #### 2 4323-8 ####[facility] LABORATORYCLIA [id number] [address] [place] Urea nitrogen [Mass/Vol] 9 mg/dL Normal 7-21 [facility] Comment on above: Order Comment: Speci men Type: BLOOD SPECIMENOrdering Facility: [facility] Address: [address] [place] [address] Performed By: #### 2 4323-8 ####[facility]ORATORYCLIA [id number] [place] [address] [place] ECG COMPLETEon 11-26-2023 ECG COMPLETE Normal [facility] OPERATIVE NOon 11-26-2023 OPERATIVE NO Normal [facility] SURGICAL PATHOLOGYon 024 BLOCK FOR ADDITIONAL BIOMARKERS/MOLECUL AR STUDIES F6 Normal [facility] Comment on above: Order Comment: Speci men Type: TISSUE SPECIMENOrdering Facility: [facility] Address: [address] [place] [address] Performed By: #### S ####[facility] LABORATORYCLIA [id number] [address] STATES [place] CASE REPORT Normal [facility] Comment on above: Order Comment: Speci men Type: TISSUE SPECIMENOrdering Facility: [facility] Address: [address] [place] [address] Result Comment: Surg ical Pathology Report Case: [id number] Provider: Mikala Jones MD Collected: 11/26/2023 09:34 AMOrdering Location: [facility] Received: 11/27/2023 07:22 AMPathologist: Antony Guerrero MDIntraop: Sotero Ulloa MDSpecimens: A) - Small Bowel, Duodenum, Biopsy, duodenal margin for FROZEN, long stitch ware duodenal margin B) - Adipose Tissue, ventral fat pad C) - Lymph Node (Specify Site in Comments), periportal lymph nodes for permanent D) - Lymph Node (Specify Site in Comments), hepatic artery lymph node for permanent E) - Soft Tissue, Mass, Resection, cystic duct margin for permanent F) - Gallbladder, gallbladder, single stitch ware superior, douple stitch ware lateral, segment 4B-5 resection Performed By: #### S ####[facility] LABORATORYCLIA [id number] [address] [place] CLINICAL HISTORY Normal [facility] Comment on above: Order Comment: Speci men Type: TISSUE SPECIMENOrdering Facility: [facility] Address: [address] [place] [address] Result Comment: Pre- op diagnosis:Biliary obstruction [K83.1] Performed By: #### S ####[facility] LABORATORYCLIA [id number] [address] OF [place] DIAGNOSIS COMMENT Normal [facility] Comment on above: Order Comment: Speci men Type: TISSUE SPECIMENOrdering Facility: [facility] Address: [address] [place] [address] Performed By: #### S ####[facility] LABORATORYCLIA [id number] [address] FINAL DIAGNOSIS Normal [facility] Comment on above: Order Comment: Speci men Type: TISSUE SPECIMENOrdering Facility: [facility] Address: [address] [place] [address] Result Comment: A. S mall bowel, duodenal margin, biopsy:- Benign duodenal tissues.B. Soft tissue, ventral fat pad, excision:- Benign fibroadipose tissue.C. Lymph node, periportal, excision:- Metastatic carcinoma in one lymph node (1/).D. Lymph node, hepatic artery, excision:- One benign lymph node (0/1).E. Cystic duct margin, excision:- Negative for malignancy.F. 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 Performed By: #### S ####[facility] LABORATORYCLIA [id number] [address] OF [facility] FINAL PERFORMING LAB Normal [facility] Comment on above: Order Comment: Speci men Type: TISSUE SPECIMENOrdering Facility: [facility] Address: [address] [place] [address] Result Comment: Diag nostic interpretation performed at [facility], [address] [place] [address] CLIA# [id number] Director: Sotero Ulloa M.D. Performed By: #### S ####[facility] LABORATORYCLIA [id number] [address] OF [place] GROSS DESCRIPTION Normal [facility] Comment on above: Order Comment: Speci men Type: TISSUE SPECIMENOrdering Facility: [facility] Address: [address], [place] [address] Result Comment: Sofie. Jordan shaw Bowel, Duodenum, BiopsyReceived fresh for intraoperative diagnosis labeled duodenal margin is a 1.2 x 0.5 cm segment of duodenum with a thickness of 0.3 cm. The identifiable mucosa is pink, glistening. The possibly identifiable serosa is smooth with some scantly adherent adipose tissue. Totally submitted on edge in 1 cassette.Gross examination performed at [facility], [address] [place] [address] CLIA# [id number] November 26, 2023 12:12 PMB. Adipose TissueReceived in formalin labeled ventral fat pad is a yellow fatty segment of tissue measuring 11.5 x 8.3 x 2.4 cm. Upon sectioning masses, not are not appreciated. The specimen displays yellow fatty cut surface. Front Desk Worker sac in 1 cassette.C. Lymph Node (Specify Site in Comments)Received in formalin labeled periportal lymph nodes is a yellow-red rubbery nodule resembling a lymph node measuring 2.9 x 1.8 by meters. Also received in the same container are multiple yellow fatty segments of aggregating to 3.5 x 3.0 x 0.5 cm.The tissue is totally submitted as follows:C1-C3 lymph node serially sectioned and totally submittedC4-C5 fat totally submittedD. Lymph Node (Specify Site in Comments)Received in form labeled hepatic artery lymph node is a yellow-dolan nodule resembling a lymph node measuring 2.6 x 1.2 x 0.8 cm. The specimen is serially sectioned and totally submitted in formalin in 2 cassettes.E. Soft Tissue, Mass, ResectionReceived in form labeled cystic duct margin is a cylindrical segment of zhou-pink tissue consistent with a duct measuring 0.8 x 1.0 x 0.7 cm. A lumen is present. The specimen is totally submitted in formalin in 1 cassette.F. GallbladderReceived in formalin labeled gallbladder, segment 4B-5 resection and oriented per the requisition with single stitch superior double stitch lateral is an oriented segment of liver with gallbladder measuring 11.5 x 10.5 x 4.6 cm and weighing 134 g. There is an adhered segment of mucosa resembling small bowel measuring 2.5 x 1.5 cm the borders of the mucosa are inked yellow. The lateral margin is inked red, the superior margin is inked blue and the medial margin is inked orange. The gallbladder measures 5.5 x 2.5 x 2.2 cm. The specimen is serially sectioned from the superior to inferior aspect. Upon sectioning the lumen of the gallbladder is void of material. The wall of the gallbladder averages 0.3 cm in thickness. Multiple calculi are present and of the admixed type and range in size from 0.4 to 1.2 cm in greatest dimension. The mucosal surface of the gallbladder in the body and fundus displays a white firm mass measuring 4.8 x 3.4 x 2.3 cm. The mass obliterates the gallbladder wall and extends 1.6 cm into the surrounding liver tissue and fat. The mass appears to abut the overlying liver capsule which is distorted (inked black). The mass extends within 1.5 cm the closest superior margin, 1.3 cm of the cystic duct margin, 1.8 cm of the lateral margin and 2.7 cm of the medial margin. The mass appears to extend into the wall of the small bowel but does not grossly appear to extend to the mucosal surface. The mass appears to extend within 0.2 cm of the yellow inked line of resection. Also identified upon sectioning are 3 possible satellite nodules ranging in size from 0.2 to 0.7 cm in greatest dimension. They range from 1.2 to 2.0 cm from the main mass. 1 nodule appears to abut the lateral margin. The uninvolved liver parenchyma is brown and unremarkable.Tissue is submitted as follows:F1 cystic ductF2-F4 instruments sales representative sections of massF5-6 instruments sales representative sections of mass with apparent extent to capsuleF7-F13 attached segment of small bowel totally submitted with ytodW05-D21 instruments sales representative sections of mass with extension into fatF17 1 possible satellite nodule totally fxliblotvG93 1 possible satellite nodule totally etrxvrbttM03 1 possible satellite nodule sectioned and totally [id number] instruments sales representative section of superior hepatic etzxdiD85 instruments sales representative section of medial hepatic fgrbucR54 instruments sales representative section of the lateral hepatic margin Gross examination performed at [facility], [address] [place] [id number] November 27, 2023 10:08 AM Performed By: #### S ####[facility] LABORATORYCLIA [id number] [place] [address] [place] INTRAOPERATIVE DIAGNOSIS Normal [facility] Comment on above: Order Comment: Speci men Type: TISSUE SPECIMENOrdering Facility: [facility] Address: [address] [place] [address] Result Comment: A. S mall Bowel, Duodenum, BiopsyFSA 1: Duodenal margin-benign duodenal tissue, negative for malignancy. (Dr. Ulloa/Dr. Wills)Intraoperative examination performed at [facility], [address] [place] [address] CLIA# [id number] Performed By: #### S ####[facility] LABORATORYCLIA [id number] [address] STATES [place] SYNOPTIC REPORT GALLBLADDER Normal [facility] Comment on above: Order Comment: Speci men Type: TISSUE SPECIMENOrdering Facility: [facility] Address: [address] [place] [address] Result Comment: GALL BLADDER: RESECTION/CHOLECYSTECTOMY - All Huotedmac[employer]co Edition - Protocol posted: 09/27/2020PECIMEN Procedure: En bloc resection of gallbladder, liver segments 4b-5 and second portion of duodenumTUMOR Tumor Site: Fundus Tumor Site: Body Histologic Type: Adenocarcinoma, biliary type Histologic Grade: G3, poorly differentiated Tumor Size: Greatest Dimension (Centimeters): 4.8 cm Additional Dimension (Centimeters): 3.4 cm Additional Dimension (Centimeters): 2.3 cm Tumor Extent: Directly invades other adjacent organ(s) or structure(s) : Duodenum Lymphovascular Invasion: Present Perineural Invasion: Not identifiedMARGINS Margin Status for Invasive Carcinoma: All margins negative for invasive carcinoma Distance from Invasive Carcinoma to Cystic Duct Margin: 1.3 cm Distance from Invasive Carcinoma to Liver Parenchymal Margin: 1.5 cm Margin Status for Intraepithelial Neoplasia: All margins negative for high-grade intraepithelial neoplasia Margin Comment: Invasive adenocarcinoma is 0.2 cm away from the duodenal resection margin.REGIONAL LYMPH NODES Regional Lymph Node Status: : Tumor present in regional lymph node(s) Number of Lymph Nodes with Tumor: 1 Number of Lymph Nodes Examined: 2PATHOLOGIC STAGE CLASSIFICATION (pTNM, AJCC 8th Edition) Reporting of pT, pN, and (when applicable) pM categories is based on information available to the pathologist at the time the report is issued. As per the AJCC (Chapter 1, 8th Ed.) it is the managing physician???s responsibility to establish the final pathologic stage based upon all pertinent information, including but potentially not limited to this pathology report. pT Category: pT3 pN Category: [id number] FINDINGS Additional Findings: Dysplasia / adenoma Additional Findings: Cholelithiasis Performed By: #### S ####[facility] LABORATORYCLIA [id number] [address] [place] ANES POSTPROC EVALon 024 ANES POSTPROC EVAL Normal [facility] ANES PRE-OPon 11-25-2023 ANES PRE-OP Normal [facility] CASE MANAGEMon 11-25-2023 CASE MANAGEM Normal [facility] CBC panel Auto (Bld)on 11-24 Erythrocyte distribution width (RBC) [Ratio] 14.8 % Normal 11.5-15.0 [facility] Comment on above: Order Comment: Speci men Type: BLOOD SPECIMENOrdering Facility: [facility] Address: [address] [place] [address] Performed By: #### 5 8410-2 ####[facility] LABORATORYCLIA [id number] [address] [place] Hematocrit (Bld) [Volume fraction] 33.8 % Low 36.0-46.0 [facility] Comment on above: Order Comment: Speci men Type: BLOOD SPECIMENOrdering Facility: [facility] Address: [address] [place] [address] Performed By: #### 5 8410-2 ####[facility] LABORATORYCLIA [id number] [place] [address] [place] Hemoglobin (Bld) [Mass/Vol] 10.5 g/dL Low 11.5-15.5 [facility] Comment on above: Order Comment: Speci men Type: BLOOD SPECIMENOrdering Facility: [facility] Address: [address] [place] [address] Performed By: #### 5 8410-2 ####[facility] LABORATORYCLIA [id number] [address] MCH (RBC) [Entitic mass] 28.6 pg Normal 26.0-34.0 [facility] Comment on above: Order Comment: Speci men Type: BLOOD SPECIMENOrdering Facility: [facility] Address: [address] [place] [address] Performed By: #### 5 8410-2 ####[facility] LABORATORYCLIA [id number] [address] MCHC (RBC) [Mass/Vol] 31.1 g/dL Normal 30.5-36.0 [facility] Comment on above: Order Comment: Speci men Type: BLOOD SPECIMENOrdering Facility: [facility] Address: [address] [place] [address] Performed By: #### 5 8410-2 ####[facility] LABORATORYCLIA [id number] [address] MCV (RBC) [Entitic vol] 92.1 fL Normal 80.0-100.0 [facility] Comment on above: Order Comment: Speci men Type: BLOOD SPECIMENOrdering Facility: [facility] Address: [address] [place] [address] Performed By: #### 5 8410-2 ####[facility] LABORATORYCLIA [id number] [address] Nucleated RBC (Bld) [#/Vol] 10*3/uL Normal <0.01 [facility] Comment on above: Order Comment: Speci men Type: BLOOD SPECIMENOrdering Facility: [facility] Address: [address] [place] [address] Performed By: #### 5 8410-2 ####[facility] LABORATORYCLIA [id number] [address] Platelet mean volume (Bld) [Entitic vol] 10.5 fL Normal 9.0-12.7 [facility] Comment on above: Order Comment: Speci men Type: BLOOD SPECIMENOrdering Facility: [facility] Address: [address] [place] [address] Performed By: #### 5 8410-2 ####[facility] LABORATORYCLIA [id number] [address] Platelets (Bld) [#/Vol] 246 10*3/uL Normal 150-400 [facility] Comment on above: Order Comment: Speci men Type: BLOOD SPECIMENOrdering Facility: [facility] Address: [address] [place] [address] Performed By: #### 5 8410-2 ####[facility] LABORATORYCLIA [id number] [address] RBC (Bld) [#/Vol] 3.67 10*6/uL Low 3.90-5.20 [facility] Comment on above: Order Comment: Speci men Type: BLOOD SPECIMENOrdering Facility: [facility] Address: [address] [place] [address] Performed By: #### 5 8410-2 ####[facility] LABORATORYCLIA [id number] [address] WBC (Bld) [#/Vol] 8.19 10*3/uL Normal 3.70-11.00 [facility] Comment on above: Order Comment: Speci men Type: BLOOD SPECIMENOrdering Facility: [facility] Address: [address] [place] [address] Performed By: #### 5 8410-2 ####[facility] LABORATORYCLIA [id number] [address] Comprehensive metabolic 2000 panelon 11-25-2023 Albumin [Mass/Vol] 3.5 g/dL Low 3.9-4.9 [facility] Comment on above: Order Comment: Speci men Type: BLOOD SPECIMENOrdering Facility: [facility] Address: [address] [place] [address] Performed By: #### 2 4323-8 ####[facility] LABORATORYCLIA [id number] [address] ALP [Catalytic activity/Vol] 62 U/L Normal 34-123 [facility] Comment on above: Order Comment: Speci men Type: BLOOD SPECIMENOrdering Facility: [facility] Address: [address] [place] [address] Performed By: #### 2 4323-8 ####[facility]ORATORYCLIA [id number] [address] [place] ALT With P-5'-P [Catalytic activity/Vol] 40 U/L High 7-38 [facility] Comment on above: Order Comment: Speci men Type: BLOOD SPECIMENOrdering Facility: [facility] Address: [address] [place] [address] Performed By: #### 2 4323-8 ####[facility]ORATORYCLIA [id number] [address] Anion gap [Moles/Vol] 11 mmol/L Normal 8-15 [facility] Comment on above: Order Comment: Speci men Type: BLOOD SPECIMENOrdering Facility: [facility] Address: [address] [place] [address] Performed By: #### 2 4323-8 ####[facility]ORATORYCLIA [id number] [address] AST With P-5'-P [Catalytic activity/Vol] 45 U/L High 13-35 [facility] Comment on above: Order Comment: Speci men Type: BLOOD SPECIMENOrdering Facility: [facility] Address: [address] [place] [address] Performed By: #### 2 4323-8 ####[facility]ORATORYCLIA [id number] [address] [place] Bilirubin [Mass/Vol] 0.3 mg/dL Normal 0.2-1.3 [facility] Comment on above: Order Comment: Speci men Type: BLOOD SPECIMENOrdering Facility: [facility] Address: [address] [place] [address] Performed By: #### 2 4323-8 ####[facility]ORATORYCLIA [id number] [place] [address] [place] Calcium [Mass/Vol] 9.0 mg/dL Normal 8.5-10.2 [facility] Comment on above: Order Comment: Speci men Type: BLOOD SPECIMENOrdering Facility: [facility] Address: [address] [place] [address] Performed By: #### 2 4323-8 ####[facility] LABORATORYCLIA [id number] [place] [address] [place] Chloride [Moles/Vol] 106 mmol/L Normal 98-107 [facility] Comment on above: Order Comment: Speci men Type: BLOOD SPECIMENOrdering Facility: [facility] Address: [address] [place] [address] Performed By: #### 2 4323-8 ####[facility] LABORATORYCLIA [id number] [address] [place] CO2 [Moles/Vol] 26 mmol/L Normal 22-30 [facility] Comment on above: Order Comment: Speci men Type: BLOOD SPECIMENOrdering Facility: [facility] Address: [address] [place] [address] Performed By: #### 2 4323-8 ####[facility] LABORATORYCLIA [id number] [place] [address] [place] Creatinine [Mass/Vol] 0.85 mg/dL Normal 0.58-0.96 [facility] Comment on above: Order Comment: Speci men Type: BLOOD SPECIMENOrdering Facility: [facility] Address: [address] [place] [address] Performed By: #### 2 4323-8 ####[facility] LABORATORYCLIA [id number] [address] [place] Creatinine and Glomerular filtration rate.predicted panel (S/P/Bld) 70 mL/min/1.73m??? Normal >=60 [facility] Comment on above: Order Comment: Speci men Type: BLOOD SPECIMENOrdering Facility: [facility] Address: [address] [place] [address] Result Comment: Rosana mated Glomerular Filtration Rate (eGFR) is calculated using the 2020 CKD-EPI creatinine equation. This equation utilizes serum creatinine, sex, and age as parameters. The creatinine assay has traceable calibration to isotope dilution-mass spectrometry. Refer to KDIGO guidelines for clinical interpretation. In patients with unstable renal function, e.g. those with acute kidney injury, the eGFR may not accurately reflect actual GFR. Performed By: #### 2 4323-8 ####[facility] LABORATORYCLIA [id number] [place] [address] [place] Glucose [Mass/Vol] 107 mg/dL High 74-99 [facility] Comment on above: Order Comment: Antwan rowland Type: BLOOD SPECIMENOrdering Facility: [facility] Address: [address] [place] [address] Result Comment: The [place] Diabetes Association (ADA) provides guidance for cutoff values for fasting glucose and random glucose. The ADA defines fasting as no caloric intake for at least 8 hours. Fasting plasma glucose results between 100 to 125 mg/dL indicate increased risk for diabetes (prediabetes).Fasting plasma glucose results greater than or equal to 126 mg/dL meet the criteria for diagnosis of diabetes. In the absence of unequivocal hyperglycemia, results should be confirmed by repeat testing. In a patient with classic symptoms of hyperglycemia or hyperglycemic crisis, random plasma glucose results greater than or equal to 200 mg/dL meet the criteria for diagnosis of diabetes.Reference: Standards of Medical Care in Diabetes 2016, [place] Diabetes Association. Diabetes Care. 2016.39(Suppl 1). Performed By: #### 2 4323-8 ####[facility] LABORATORYCLIA [id number] [place] [id number] [place] Potassium [Moles/Vol] 3.6 mmol/L Low 3.7-5.1 [facility] Comment on above: Order Comment: Antwan rowland Type: BLOOD SPECIMENOrdering Facility: [facility] Address: [address] [place] [id number] Performed By: #### 2 4323-8 ####[facility] LABORATORYCLIA [id number] [place] [address] [place] Protein [Mass/Vol] 6.1 g/dL Low 6.3-8.0 [facility] Comment on above: Order Comment: Speci men Type: BLOOD SPECIMENOrdering Facility: [facility] Address: [address] [place] [address] Performed By: #### 2 4323-8 ####[facility]ORATORYCLIA [id number] [address] [place] Sodium [Moles/Vol] 143 mmol/L Normal 136-144 [facility] Comment on above: Order Comment: Speci men Type: BLOOD SPECIMENOrdering Facility: [facility] Address: [address] [place] [address] Performed By: #### 2 4323-8 ####[facility]ORATORYCLIA [id number] [address] [place] Urea nitrogen [Mass/Vol] 15 mg/dL Normal 7-21 [facility] Comment on above: Order Comment: Speci men Type: BLOOD SPECIMENOrdering Facility: [facility] Address: [address] [place] [address] Performed By: #### 2 4323-8 ####[facility]ORATORYCLIA [id number] [address] [place] ERCPon 11-25-2023 ERCP Normal [facility] NURSING PROGon 11-25-2023 NURSING PROG Normal [facility] XR ERCP READ ONLYon 11-25-19 24 XR ERCP READ ONLY Normal [facility] ANES POSTPROC EVALon 024 ANES POSTPROC EVAL Normal [facility] CASE MANAGEMon 11-24-2023 CASE MANAGEM Normal [facility] CASE MANAGEM Normal [facility] CBC panel Auto (Bld)on 11-23 Erythrocyte distribution width (RBC) [Ratio] 14.7 % Normal 11.5-15.0 [facility] Comment on above: Order Comment: Speci men Type: BLOOD SPECIMENOrdering Facility: [facility] Address: [address] [place] [address] Performed By: #### 5 8410-2 ####[facility]ORATORYCLIA [id number] [address] Hematocrit (Bld) [Volume fraction] 37.7 % Normal 36.0-46.0 [facility] Comment on above: Order Comment: Speci men Type: BLOOD SPECIMENOrdering Facility: [facility] Address: [address] [place] [address] Performed By: #### 5 8410-2 ####[facility] LABORATORYCLIA [id number] [address] Hemoglobin (Bld) [Mass/Vol] 11.8 g/dL Normal 11.5-15.5 [facility] Comment on above: Order Comment: Speci men Type: BLOOD SPECIMENOrdering Facility: [facility] Address: [address] [place] [address] Performed By: #### 5 8410-2 ####[facility] LABORATORYCLIA [id number] [address] STATES [facility] MCH (RBC) [Entitic mass] 28.8 pg Normal 26.0-34.0 [facility] Comment on above: Order Comment: Speci men Type: BLOOD SPECIMENOrdering Facility: [facility] Address: [address] [place] [address] Performed By: #### 5 8410-2 ####[facility] LABORATORYCLIA [id number] [address] [place] MCHC (RBC) [Mass/Vol] 31.3 g/dL Normal 30.5-36.0 [facility] Comment on above: Order Comment: Speci men Type: BLOOD SPECIMENOrdering Facility: [facility] Address: [address] [place] [address] Performed By: #### 5 8410-2 ####[facility] LABORATORYCLIA [id number] [address] MCV (RBC) [Entitic vol] 92.0 fL Normal 80.0-100.0 [facility] Comment on above: Order Comment: Speci men Type: BLOOD SPECIMENOrdering Facility: [facility] Address: [address] [place] [address] Performed By: #### 5 8410-2 ####[facility] LABORATORYCLIA [id number] [address] [place] Nucleated RBC (Bld) [#/Vol] 10*3/uL Normal <0.01 [facility] Comment on above: Order Comment: Speci men Type: BLOOD SPECIMENOrdering Facility: [facility] Address: [address] [place] [address] Performed By: #### 5 8410-2 ####[facility] LABORATORYCLIA [id number] [address] [place] Platelet mean volume (Bld) [Entitic vol] 10.3 fL Normal 9.0-12.7 [facility] Comment on above: Order Comment: Speci men Type: BLOOD SPECIMENOrdering Facility: [facility] Address: [address] [place] [address] Performed By: #### 5 8410-2 ####[facility] LABORATORYCLIA [id number] [address] [address] [place] Platelets (Bld) [#/Vol] 283 10*3/uL Normal 150-400 [facility] Comment on above: Order Comment: Speci men Type: BLOOD SPECIMENOrdering Facility: [facility] Address: [address] [place] [address] Performed By: #### 5 8410-2 ####[facility] LABORATORYCLIA [id number] [address] OF [place] RBC (Bld) [#/Vol] 4.10 10*6/uL Normal 3.90-5.20 [facility] Comment on above: Order Comment: Speci men Type: BLOOD SPECIMENOrdering Facility: [facility] Address: [address] [place] [address] Performed By: #### 5 8410-2 ####[facility] LABORATORYCLIA [id number] [address] [place] WBC (Bld) [#/Vol] 6.90 10*3/uL Normal 3.70-11.00 [facility] Comment on above: Order Comment: Speci men Type: BLOOD SPECIMENOrdering Facility: [facility] Address: [address] [place] [address] Performed By: #### 5 8410-2 ####[facility] LABORATORYCLIA [id number] [address] OF [facility] CONSULT PROGon 11-24-2023 CONSULT PROG Normal [facility] Comprehensive metabolic 2000 panelon 11-24-2023 Albumin [Mass/Vol] 3.9 g/dL Normal 3.9-4.9 [facility] Comment on above: Order Comment: Speci men Type: BLOOD SPECIMENOrdering Facility: [facility] Address: [address] [place] [address] Performed By: #### 2 4323-8 ####[facility] LABORATORYCLIA [id number] [address] [place] ALP [Catalytic activity/Vol] 67 U/L Normal 34-123 [facility] Comment on above: Order Comment: Speci men Type: BLOOD SPECIMENOrdering Facility: [facility] Address: [address] [place] [address] Performed By: #### 2 4323-8 ####[facility] LABORATORYCLIA [id number] [address] [place] ALT With P-5'-P [Catalytic activity/Vol] 30 U/L Normal 7-38 [facility] Comment on above: Order Comment: Speci men Type: BLOOD SPECIMENOrdering Facility: [facility] Address: [address] [place] [address] Performed By: #### 2 4323-8 ####[facility] LABORATORYCLIA [id number] [address] STATES [facility] Anion gap [Moles/Vol] 13 mmol/L Normal 8-15 [facility] Comment on above: Order Comment: Speci men Type: BLOOD SPECIMENOrdering Facility: [facility] Address: [address] [place] [address] Performed By: #### 2 4323-8 ####[facility]ORATORYCLIA [id number] [place] [address] [place] AST With P-5'-P [Catalytic activity/Vol] 36 U/L High 13-35 [facility] Comment on above: Order Comment: Speci men Type: BLOOD SPECIMENOrdering Facility: [facility] Address: [address] [place] [address] Performed By: #### 2 4323-8 ####[facility] LABORATORYCLIA [id number] [place] [address] [place] Bilirubin [Mass/Vol] 0.4 mg/dL Normal 0.2-1.3 [facility] Comment on above: Order Comment: Speci men Type: BLOOD SPECIMENOrdering Facility: [facility] Address: [address] [place] [address] Performed By: #### 2 4323-8 ####[facility] LABORATORYCLIA [id number] [place] [address] [place] Calcium [Mass/Vol] 9.4 mg/dL Normal 8.5-10.2 [facility] Comment on above: Order Comment: Speci men Type: BLOOD SPECIMENOrdering Facility: [facility] Address: [address] [place] [address] Performed By: #### 2 4323-8 ####[facility] LABORATORYCLIA [id number] [place] [address] [place] Chloride [Moles/Vol] 104 mmol/L Normal 98-107 [facility] Comment on above: Order Comment: Speci men Type: BLOOD SPECIMENOrdering Facility: [facility] Address: [address] [place] [address] Performed By: #### 2 4323-8 ####[facility]ORATORYCLIA [id number] [place] [address] [place] CO2 [Moles/Vol] 26 mmol/L Normal 22-30 [facility] Comment on above: Order Comment: Speci men Type: BLOOD SPECIMENOrdering Facility: [facility] Address: [address] [place] [address] Performed By: #### 2 4323-8 ####[facility]PITALIA [id number] [address] Creatinine [Mass/Vol] 0.80 mg/dL Normal 0.58-0.96 [facility] Comment on above: Order Comment: Speci men Type: BLOOD SPECIMENOrdering Facility: [facility] Address: [address] [place] [address] Performed By: #### 2 4323-8 ####[facility] HOSPITALIA [id number] [address] Creatinine and Glomerular filtration rate.predicted panel (S/P/Bld) 76 mL/min/1.73m??? Normal >=60 [facility] Comment on above: Order Comment: Speci men Type: BLOOD SPECIMENOrdering Facility: [facility] Address: [address] [place] [address] Result Comment: Rosana mated Glomerular Filtration Rate (eGFR) is calculated using the 2020 CKD-EPI creatinine equation. This equation utilizes serum creatinine, sex, and age as parameters. The creatinine assay has traceable calibration to isotope dilution-mass spectrometry. Refer to KDIGO guidelines for clinical interpretation. In patients with unstable renal function, e.g. those with acute kidney injury, the eGFR may not accurately reflect actual GFR. Performed By: #### 2 4323-8 ####[facility] LABORATORYIA [id number] [address] Glucose [Mass/Vol] 98 mg/dL Normal 74-99 [facility] Comment on above: Order Comment: Speci men Type: BLOOD SPECIMENOrdering Facility: [facility] Address: [address] [place] [address] Result Comment: The [place] Diabetes Association (ADA) provides guidance for cutoff values for fasting glucose and random glucose. The ADA defines fasting as no caloric intake for at least 8 hours. Fasting plasma glucose results between 100 to 125 mg/dL indicate increased risk for diabetes (prediabetes).Fasting plasma glucose results greater than or equal to 126 mg/dL meet the criteria for diagnosis of diabetes. In the absence of unequivocal hyperglycemia, results should be confirmed by repeat testing. In a patient with classic symptoms of hyperglycemia or hyperglycemic crisis, random plasma glucose results greater than or equal to 200 mg/dL meet the criteria for diagnosis of diabetes.Reference: Standards of Medical Care in Diabetes 2016, [place] Diabetes Association. Diabetes Care. 2016.39(Suppl 1). Performed By: #### 2 4323-8 ####[facility] LABORATORYCLIA [id number] [place] [address] [place] Potassium [Moles/Vol] 3.9 mmol/L Normal 3.7-5.1 [facility] Comment on above: Order Comment: Antwan rowland Type: BLOOD SPECIMENOrdering Facility: [facility] Address: [address] [place] [address] Performed By: #### 2 4323-8 ####[facility] LABORATORYCLIA [id number] [place] [address] [place] Protein [Mass/Vol] 6.8 g/dL Normal 6.3-8.0 [facility] Comment on above: Order Comment: Conori kashif Type: BLOOD SPECIMENOrdering Facility: [facility] Address: [address] [place] [address] Performed By: #### 2 4323-8 ####[facility] LABORATORYCLIA [id number] [place] [address] [place] Sodium [Moles/Vol] 143 mmol/L Normal 136-144 [facility] Comment on above: Order Comment: Speci men Type: BLOOD SPECIMENOrdering Facility: [facility] Address: [address] [place] [address] Performed By: #### 2 4323-8 ####[facility] LABORATORYCLIA [id number] [place] [address] [place] Urea nitrogen [Mass/Vol] 9 mg/dL Normal 7-21 [facility] Comment on above: Order Comment: Conori men Type: BLOOD SPECIMENOrdering Facility: [facility] Address: [address] [place] [address] Performed By: #### 2 4323-8 ####[facility] LABORATORYCLIA [id number] [address] STATES OF [facility] CBC panel Auto (Bld)on 11-22 Erythrocyte distribution width (RBC) [Ratio] 14.5 % Normal 11.5-15.0 [facility] Comment on above: Order Comment: Speci men Type: BLOOD SPECIMENOrdering Facility: [facility] Address: [address] [place] [address] Performed By: #### 5 8410-2 ####[facility] LABORATORYCLIA [id number] [address] OF [facility] Hematocrit (Bld) [Volume fraction] 35.2 % Low 36.0-46.0 [facility] Comment on above: Order Comment: Speci men Type: BLOOD SPECIMENOrdering Facility: [facility] Address: [address] [place] [address] Performed By: #### 5 8410-2 ####[facility] LABORATORYCLIA [id number] [address] OF [facility] Hemoglobin (Bld) [Mass/Vol] 11.1 g/dL Low 11.5-15.5 [facility] Comment on above: Order Comment: Speci men Type: BLOOD SPECIMENOrdering Facility: [facility] Address: [address] [place] [address] Performed By: #### 5 8410-2 ####[facility] LABORATORYCLIA [id number] [address] STATES [facility] MCH (RBC) [Entitic mass] 28.8 pg Normal 26.0-34.0 [facility] Comment on above: Order Comment: Speci men Type: BLOOD SPECIMENOrdering Facility: [facility] Address: [address] [place] [address] Performed By: #### 5 8410-2 ####[facility] LABORATORYCLIA [id number] [address] [place] MCHC (RBC) [Mass/Vol] 31.5 g/dL Normal 30.5-36.0 [facility] Comment on above: Order Comment: Speci men Type: BLOOD SPECIMENOrdering Facility: [facility] Address: [address] [place] [address] Performed By: #### 5 8410-2 ####[facility] LABORATORYCLIA [id number] [address] STATES [facility] MCV (RBC) [Entitic vol] 91.4 fL Normal 80.0-100.0 [facility] Comment on above: Order Comment: Speci men Type: BLOOD SPECIMENOrdering Facility: [facility] Address: [address] [place] [address] Performed By: #### 5 8410-2 ####[facility] LABORATORYCLIA [id number] [address] OF [place] Nucleated RBC (Bld) [#/Vol] 10*3/uL Normal <0.01 [facility] Comment on above: Order Comment: Speci men Type: BLOOD SPECIMENOrdering Facility: [facility] Address: [address] [place] [address] Performed By: #### 5 8410-2 ####[facility] LABORATORYCLIA [id number] [address] Platelet mean volume (Bld) [Entitic vol] 10.0 fL Normal 9.0-12.7 [facility] Comment on above: Order Comment: Speci men Type: BLOOD SPECIMENOrdering Facility: [facility] Address: [address] [place] [address] Performed By: #### 5 8410-2 ####[facility] LABORATORYCLIA [id number] [address] [place] Platelets (Bld) [#/Vol] 259 10*3/uL Normal 150-400 [facility] Comment on above: Order Comment: Speci men Type: BLOOD SPECIMENOrdering Facility: [facility] Address: [address] [place] [address] Performed By: #### 5 8410-2 ####[facility] LABORATORYCLIA [id number] [address] OF [facility] RBC (Bld) [#/Vol] 3.85 10*6/uL Low 3.90-5.20 [facility] Comment on above: Order Comment: Speci men Type: BLOOD SPECIMENOrdering Facility: [facility] Address: [address] [place] [address] Performed By: #### 5 8410-2 ####[facility] LABORATORYCLIA [id number] [address] OF [facility] WBC (Bld) [#/Vol] 5.81 10*3/uL Normal 3.70-11.00 [facility] Comment on above: Order Comment: Speci men Type: BLOOD SPECIMENOrdering Facility: [facility] Address: [address] [place] [address] Performed By: #### 5 8410-2 ####[facility] LABORATORYCLIA [id number] [address] Comprehensive metabolic 2000 panelon 11-23-2023 Albumin [Mass/Vol] 3.5 g/dL Low 3.9-4.9 [facility] Comment on above: Order Comment: Speci men Type: BLOOD SPECIMENOrdering Facility: [facility] Address: [address] [place] [address] Performed By: #### 2 4323-8 ####[facility] LABORATORYCLIA [id number] [address] ALP [Catalytic activity/Vol] 59 U/L Normal 34-123 [facility] Comment on above: Order Comment: Speci men Type: BLOOD SPECIMENOrdering Facility: [facility] Address: [address] [place] [address] Performed By: #### 2 4323-8 ####[facility] LABORATORYCLIA [id number] [address] ALT With P-5'-P [Catalytic activity/Vol] 24 U/L Normal 7-38 [facility] Comment on above: Order Comment: Speci men Type: BLOOD SPECIMENOrdering Facility: [facility] Address: [address] [place] [address] Performed By: #### 2 4323-8 ####[facility]ORATORYCLIA [id number] [place] [address] [place] Anion gap [Moles/Vol] 8 mmol/L Normal 8-15 [facility] Comment on above: Order Comment: Speci men Type: BLOOD SPECIMENOrdering Facility: [facility] Address: [address] [place] [address] Performed By: #### 2 4323-8 ####[facility] LABORATORYCLIA [id number] [place] [address] [place] AST With P-5'-P [Catalytic activity/Vol] 32 U/L Normal 13-35 [facility] Comment on above: Order Comment: Speci men Type: BLOOD SPECIMENOrdering Facility: [facility] Address: [address] [place] [address] Performed By: #### 2 4323-8 ####[facility] LABORATORYCLIA [id number] [place] [address] [place] Bilirubin [Mass/Vol] 0.3 mg/dL Normal 0.2-1.3 [facility] Comment on above: Order Comment: Speci men Type: BLOOD SPECIMENOrdering Facility: [facility] Address: [address] [place] [address] Performed By: #### 2 4323-8 ####[facility]ORATORYCLIA [id number] [place] [address] [place] Calcium [Mass/Vol] 9.1 mg/dL Normal 8.5-10.2 [facility] Comment on above: Order Comment: Speci men Type: BLOOD SPECIMENOrdering Facility: [facility] Address: [address] [place] [address] Performed By: #### 2 4323-8 ####[facility] LABORATORYCLIA [id number] [place] [address] [place] Chloride [Moles/Vol] 105 mmol/L Normal 98-107 [facility] Comment on above: Order Comment: Speci men Type: BLOOD SPECIMENOrdering Facility: [facility] Address: [address] [place] [address] Performed By: #### 2 4323-8 ####[facility] LABORATORYCLIA [id number] [place] [id number] [place] CO2 [Moles/Vol] 27 mmol/L Normal 22-30 [facility] Comment on above: Order Comment: Speci men Type: BLOOD SPECIMENOrdering Facility: [facility] Address: [address] [place] [address] Performed By: #### 2 4323-8 ####[facility] LABORATORYCLIA [id number] [address] STATES OF [facility] Creatinine [Mass/Vol] 0.77 mg/dL Normal 0.58-0.96 [facility] Comment on above: Order Comment: Speci men Type: BLOOD SPECIMENOrdering Facility: [facility] Address: [address] [place] [address] Performed By: #### 2 4323-8 ####[facility] LABORATORYCLIA [id number] [address] Creatinine and Glomerular filtration rate.predicted panel (S/P/Bld) 79 mL/min/1.73m??? Normal >=60 [facility] Comment on above: Order Comment: Speci men Type: BLOOD SPECIMENOrdering Facility: [facility] Address: [address] [place] [address] Result Comment: Rosana mated Glomerular Filtration Rate (eGFR) is calculated using the 2020 CKD-EPI creatinine equation. This equation utilizes serum creatinine, sex, and age as parameters. The creatinine assay has traceable calibration to isotope dilution-mass spectrometry. Refer to KDIGO guidelines for clinical interpretation. In patients with unstable renal function, e.g. those with acute kidney injury, the eGFR may not accurately reflect actual GFR. Performed By: #### 2 4323-8 ####[facility] LABORATORYCLIA [id number] [address] [place] Glucose [Mass/Vol] 88 mg/dL Normal 74-99 [facility] Comment on above: Order Comment: Speci men Type: BLOOD SPECIMENOrdering Facility: [facility] Address: [address] [place] [address] Result Comment: The [place] Diabetes Association (ADA) provides guidance for cutoff values for fasting glucose and random glucose. The ADA defines fasting as no caloric intake for at least 8 hours. Fasting plasma glucose results between 100 to 125 mg/dL indicate increased risk for diabetes (prediabetes).Fasting plasma glucose results greater than or equal to 126 mg/dL meet the criteria for diagnosis of diabetes. In the absence of unequivocal hyperglycemia, results should be confirmed by repeat testing. In a patient with classic symptoms of hyperglycemia or hyperglycemic crisis, random plasma glucose results greater than or equal to 200 mg/dL meet the criteria for diagnosis of diabetes.Reference: Standards of Medical Care in Diabetes 2016, [place] Diabetes Association. Diabetes Care. 2016.39(Suppl 1). Performed By: #### 2 4323-8 ####[facility] LABORATORYCLIA [id number] [place] [address] [place] Potassium [Moles/Vol] 4.0 mmol/L Normal 3.7-5.1 [facility] Comment on above: Order Comment: Speci men Type: BLOOD SPECIMENOrdering Facility: [facility] Address: [address] [place] [address] Performed By: #### 2 4323-8 ####[facility] LABORATORYCLIA [id number] [place] [address] [place] Protein [Mass/Vol] 6.2 g/dL Low 6.3-8.0 [facility] Comment on above: Order Comment: Speci men Type: BLOOD SPECIMENOrdering Facility: [facility] Address: [address] [place] [id number] Performed By: #### 2 4323-8 ####[facility] LABORATORYCLIA [id number] [place] [address] [place] Sodium [Moles/Vol] 140 mmol/L Normal 136-144 [facility] Comment on above: Order Comment: Speci men Type: BLOOD SPECIMENOrdering Facility: [facility] Address: [address] [place] [address] Performed By: #### 2 4323-8 ####[facility] LABORATORYCLIA [id number] [address] STATES [facility] Urea nitrogen [Mass/Vol] 10 mg/dL Normal 7-21 [facility] Comment on above: Order Comment: Speci men Type: BLOOD SPECIMENOrdering Facility: [facility] Address: [address] [place] [address] Performed By: #### 2 4323-8 ####[facility] LABORATORYCLIA [id number] [address] CBC panel Auto (Bld)on 11-21 Erythrocyte distribution width (RBC) [Ratio] 14.4 % Normal 11.5-15.0 [facility] Comment on above: Order Comment: Speci men Type: BLOOD SPECIMENOrdering Facility: [facility] Address: [address] [place] [address] Performed By: #### 5 8410-2 ####[facility] LABORATORYCLIA [id number] [address] Hematocrit (Bld) [Volume fraction] 40.8 % Normal 36.0-46.0 [facility] Comment on above: Order Comment: Speci men Type: BLOOD SPECIMENOrdering Facility: [facility] Address: [address] [place] [address] Performed By: #### 5 8410-2 ####[facility] LABORATORYCLIA [id number] [address] STATES [facility] Hemoglobin (Bld) [Mass/Vol] 12.8 g/dL Normal 11.5-15.5 [facility] Comment on above: Order Comment: Speci men Type: BLOOD SPECIMENOrdering Facility: [facility] Address: [address] [place] [address] Performed By: #### 5 8410-2 ####[facility] LABORATORYCLIA [id number] [address] MCH (RBC) [Entitic mass] 28.7 pg Normal 26.0-34.0 [facility] Comment on above: Order Comment: Speci men Type: BLOOD SPECIMENOrdering Facility: [facility] Address: [address] [place] [address] Performed By: #### 5 8410-2 ####[facility] LABORATORYCLIA [id number] [address] STATES [facility] MCHC (RBC) [Mass/Vol] 31.4 g/dL Normal 30.5-36.0 [facility] Comment on above: Order Comment: Speci men Type: BLOOD SPECIMENOrdering Facility: [facility] Address: [address] [place] [address] Performed By: #### 5 8410-2 ####[facility] LABORATORYCLIA [id number] [address] [place] MCV (RBC) [Entitic vol] 91.5 fL Normal 80.0-100.0 [facility] Comment on above: Order Comment: Speci men Type: BLOOD SPECIMENOrdering Facility: [facility] Address: [address] [place] [address] Performed By: #### 5 8410-2 ####[facility] LABORATORYCLIA [id number] [address] STATES OF [facility] Nucleated RBC (Bld) [#/Vol] 10*3/uL Normal <0.01 [facility] Comment on above: Order Comment: Speci men Type: BLOOD SPECIMENOrdering Facility: [facility] Address: [address] [place] [address] Performed By: #### 5 8410-2 ####[facility] LABORATORYCLIA [id number] [address] [place] Platelet mean volume (Bld) [Entitic vol] 9.9 fL Normal 9.0-12.7 [facility] Comment on above: Order Comment: Speci men Type: BLOOD SPECIMENOrdering Facility: [facility] Address: [address] [place] [address] Performed By: #### 5 8410-2 ####[facility] LABORATORYCLIA [id number] [address] [place] Platelets (Bld) [#/Vol] 316 10*3/uL Normal 150-400 [facility] Comment on above: Order Comment: Speci men Type: BLOOD SPECIMENOrdering Facility: [facility] Address: [address] [place] [address] Performed By: #### 5 8410-2 ####[facility] LABORATORYCLIA [id number] [place] [address] [place] RBC (Bld) [#/Vol] 4.46 10*6/uL Normal 3.90-5.20 [facility] Comment on above: Order Comment: Speci men Type: BLOOD SPECIMENOrdering Facility: [facility] Address: [address] [place] [address] Performed By: #### 5 8410-2 ####[facility] LABORATORYCLIA [id number] [address] [place] WBC (Bld) [#/Vol] 9.38 10*3/uL Normal 3.70-11.00 [facility] Comment on above: Order Comment: Speci men Type: BLOOD SPECIMENOrdering Facility: [facility] Address: [address] [place] [address] Performed By: #### 5 8410-2 ####[facility] LABORATORYCLIA [id number] [address] OF [facility] Comprehensive metabolic 2000 panelon 11-22-2023 Albumin [Mass/Vol] 4.1 g/dL Normal 3.9-4.9 [facility] Comment on above: Order Comment: Speci men Type: BLOOD SPECIMENOrdering Facility: [facility] Address: [address] [place] [address] Performed By: #### 2 4323-8 ####[facility] LABORATORYCLIA [id number] [address] OF [place] ALP [Catalytic activity/Vol] 80 U/L Normal 34-123 [facility] Comment on above: Order Comment: Speci men Type: BLOOD SPECIMENOrdering Facility: [facility] Address: [address] [place] [address] Performed By: #### 2 4323-8 ####[facility]ORATORYCLIA [id number] [place] [address] [place] ALT With P-5'-P [Catalytic activity/Vol] 19 U/L Normal 7-38 [facility] Comment on above: Order Comment: Speci men Type: BLOOD SPECIMENOrdering Facility: [facility] Address: [address] [place] [address] Performed By: #### 2 4323-8 ####[facility]ORATORYCLIA [id number] [place] [address] [place] Anion gap [Moles/Vol] 13 mmol/L Normal 8-15 [facility] Comment on above: Order Comment: Speci men Type: BLOOD SPECIMENOrdering Facility: [facility] Address: [address] [place] [address] Performed By: #### 2 4323-8 ####[facility]ORATORYCLIA [id number] [place] [address] [place] AST With P-5'-P [Catalytic activity/Vol] 28 U/L Normal 13-35 [facility] Comment on above: Order Comment: Speci men Type: BLOOD SPECIMENOrdering Facility: [facility] Address: [address] [place] [address] Performed By: #### 2 4323-8 ####[facility]ORATORYCLIA [id number] [place] [address] [place] Bilirubin [Mass/Vol] 0.8 mg/dL Normal 0.2-1.3 [facility] Comment on above: Order Comment: Speci men Type: BLOOD SPECIMENOrdering Facility: [facility] Address: [address] [place] [address] Performed By: #### 2 4323-8 ####[facility]ORATORYCLIA [id number] [place] [address] [place] Calcium [Mass/Vol] 9.8 mg/dL Normal 8.5-10.2 [facility] Comment on above: Order Comment: Speci men Type: BLOOD SPECIMENOrdering Facility: [facility] Address: [address] [place] [address] Performed By: #### 2 4323-8 ####[facility] LABORATORYCLIA [id number] [place] [address] [place] Chloride [Moles/Vol] 101 mmol/L Normal 98-107 [facility] Comment on above: Order Comment: Speci men Type: BLOOD SPECIMENOrdering Facility: [facility] Address: [address] [place] [address] Performed By: #### 2 4323-8 ####[facility] LABORATORYCLIA [id number] [address] [place] CO2 [Moles/Vol] 25 mmol/L Normal 22-30 [facility] Comment on above: Order Comment: Speci men Type: BLOOD SPECIMENOrdering Facility: [facility] Address: [address] [place] [address] Performed By: #### 2 4323-8 ####[facility] LABORATORYCLIA [id number] [address] [place] Creatinine [Mass/Vol] 0.68 mg/dL Normal 0.58-0.96 [facility] Comment on above: Order Comment: Speci men Type: BLOOD SPECIMENOrdering Facility: [facility] Address: [address] [place] [address] Performed By: #### 2 4323-8 ####[facility] LABORATORYCLIA [id number] [address] Creatinine and Glomerular filtration rate.predicted panel (S/P/Bld) 89 mL/min/1.73m??? Normal >=60 [facility] Comment on above: Order Comment: Speci men Type: BLOOD SPECIMENOrdering Facility: [facility] Address: [address] [place] [address] Result Comment: Rosana mated Glomerular Filtration Rate (eGFR) is calculated using the 2020 CKD-EPI creatinine equation. This equation utilizes serum creatinine, sex, and age as parameters. The creatinine assay has traceable calibration to isotope dilution-mass spectrometry. Refer to KDIGO guidelines for clinical interpretation. In patients with unstable renal function, e.g. those with acute kidney injury, the eGFR may not accurately reflect actual GFR. Performed By: #### 2 4323-8 ####[facility] LABORATORYCLIA [id number] [place] [address] [place] Glucose [Mass/Vol] 111 mg/dL High 74-99 [facility] Comment on above: Order Comment: Antwan men Type: BLOOD SPECIMENOrdering Facility: [facility] Address: [address] [place] [address] Result Comment: The [place] Diabetes Association (ADA) provides guidance for cutoff values for fasting glucose and random glucose. The ADA defines fasting as no caloric intake for at least 8 hours. Fasting plasma glucose results between 100 to 125 mg/dL indicate increased risk for diabetes (prediabetes).Fasting plasma glucose results greater than or equal to 126 mg/dL meet the criteria for diagnosis of diabetes. In the absence of unequivocal hyperglycemia, results should be confirmed by repeat testing. In a patient with classic symptoms of hyperglycemia or hyperglycemic crisis, random plasma glucose results greater than or equal to 200 mg/dL meet the criteria for diagnosis of diabetes.Reference: Standards of Medical Care in Diabetes 2016, [place] Diabetes Association. Diabetes Care. 2016.39(Suppl 1). Performed By: #### 2 4323-8 ####[facility] LABORATORYCLIA [id number] [place] [address] [place] Potassium [Moles/Vol] 4.4 mmol/L Normal 3.7-5.1 [facility] Comment on above: Order Comment: Antwan rowland Type: BLOOD SPECIMENOrdering Facility: [facility] Address: [address] [place] [address] Performed By: #### 2 4323-8 ####[facility] LABORATORYCLIA [id number] [place] [address] [place] Protein [Mass/Vol] 7.5 g/dL Normal 6.3-8.0 [facility] Comment on above: Order Comment: Antwan men Type: BLOOD SPECIMENOrdering Facility: [facility] Address: [address] [place] [address] Performed By: #### 2 4323-8 ####[facility] LABORATORYCLIA [id number] [address] [place] Sodium [Moles/Vol] 139 mmol/L Normal 136-144 [facility] Comment on above: Order Comment: Speci men Type: BLOOD SPECIMENOrdering Facility: [facility] Address: [address] [place] [address] Performed By: #### 2 4323-8 ####[facility] LABORATORYCLIA [id number] [place] [address] [place] Urea nitrogen [Mass/Vol] 12 mg/dL Normal 7-21 [facility] Comment on above: Order Comment: Speci men Type: BLOOD SPECIMENOrdering Facility: [facility] Address: [address] [place] [address] Performed By: #### 2 4323-8 ####[facility] LABORATORYCLIA [id number] [address] [place] ANES PRE-OPon 11-21-2023 ANES PRE-OP Normal [facility] CASE MANAGEMon 11-21-2023 CASE MANAGEM Normal [facility] CASE MANAGEM Normal [facility] CBC panel Auto (Bld)on 11-20 Erythrocyte distribution width (RBC) [Ratio] 14.4 % Normal 11.5-15.0 [facility] Comment on above: Order Comment: Speci men Type: BLOOD SPECIMENOrdering Facility: [facility] Address: [address] [place] [address] Performed By: #### 5 8410-2 ####[facility] LABORATORYCLIA [id number] [address] [place] Hematocrit (Bld) [Volume fraction] 38.8 % Normal 36.0-46.0 [facility] Comment on above: Order Comment: Speci men Type: BLOOD SPECIMENOrdering Facility: [facility] Address: [address] [place] [address] Performed By: #### 5 8410-2 ####[facility] LABORATORYCLIA [id number] [address] STATES OF [facility] Hemoglobin (Bld) [Mass/Vol] 12.3 g/dL Normal 11.5-15.5 [facility] Comment on above: Order Comment: Speci men Type: BLOOD SPECIMENOrdering Facility: [facility] Address: [address] [place] [address] Performed By: #### 5 8410-2 ####[facility] LABORATORYCLIA [id number] [address] STATES [facility] MCH (RBC) [Entitic mass] 28.8 pg Normal 26.0-34.0 [facility] Comment on above: Order Comment: Speci men Type: BLOOD SPECIMENOrdering Facility: [facility] Address: [address] [place] [address] Performed By: #### 5 8410-2 ####[facility] LABORATORYCLIA [id number] [address] MCHC (RBC) [Mass/Vol] 31.7 g/dL Normal 30.5-36.0 [facility] Comment on above: Order Comment: Speci men Type: BLOOD SPECIMENOrdering Facility: [facility] Address: [address] [place] [address] Performed By: #### 5 8410-2 ####[facility] LABORATORYCLIA [id number] [address] OF [place] MCV (RBC) [Entitic vol] 90.9 fL Normal 80.0-100.0 [facility] Comment on above: Order Comment: Speci men Type: BLOOD SPECIMENOrdering Facility: [facility] Address: [address] [place] [address] Performed By: #### 5 8410-2 ####[facility] LABORATORYCLIA [id number] [address] Nucleated RBC (Bld) [#/Vol] 10*3/uL Normal <0.01 [facility] Comment on above: Order Comment: Speci men Type: BLOOD SPECIMENOrdering Facility: [facility] Address: [address] [place] [address] Performed By: #### 5 8410-2 ####[facility] LABORATORYCLIA [id number] [address] STATES [facility] Platelet mean volume (Bld) [Entitic vol] 9.9 fL Normal 9.0-12.7 [facility] Comment on above: Order Comment: Speci men Type: BLOOD SPECIMENOrdering Facility: [facility] Address: [address] [place] [address] Performed By: #### 5 8410-2 ####[facility] LABORATORYCLIA [id number] [address] OF [place] Platelets (Bld) [#/Vol] 300 10*3/uL Normal 150-400 [facility] Comment on above: Order Comment: Speci men Type: BLOOD SPECIMENOrdering Facility: [facility] Address: [address] [place] [address] Performed By: #### 5 8410-2 ####[facility] LABORATORYCLIA [id number] [address] [place] RBC (Bld) [#/Vol] 4.27 10*6/uL Normal 3.90-5.20 [facility] Comment on above: Order Comment: Speci men Type: BLOOD SPECIMENOrdering Facility: [facility] Address: [address] [place] [address] Performed By: #### 5 8410-2 ####[facility] LABORATORYCLIA [id number] [place] [address] [place] WBC (Bld) [#/Vol] 8.05 10*3/uL Normal 3.70-11.00 [facility] Comment on above: Order Comment: Speci men Type: BLOOD SPECIMENOrdering Facility: [facility] Address: [address] [place] [address] Performed By: #### 5 8410-2 ####[facility] LABORATORYCLIA [id number] [address] OF [place] CNCOon 11-21-2023 CNCO Letter Text Normal [facility] CONSULTon 11-21-2023 CONSULT Normal [facility] Comprehensive metabolic 2000 panelon 11-21-2023 Albumin [Mass/Vol] 4.0 g/dL Normal 3.9-4.9 [facility] Comment on above: Order Comment: Speci men Type: BLOOD SPECIMENOrdering Facility: [facility] Address: [address] [place] [address] Performed By: #### 2 4323-8 ####[facility] LABORATORYCLIA [id number] [place] [address] [place] ALP [Catalytic activity/Vol] 71 U/L Normal 34-123 [facility] Comment on above: Order Comment: Speci men Type: BLOOD SPECIMENOrdering Facility: [facility] Address: [address] [place] [address] Performed By: #### 2 4323-8 ####[facility] LABORATORYCLIA [id number] [address] [place] ALT With P-5'-P [Catalytic activity/Vol] 9 U/L Normal 7-38 [facility] Comment on above: Order Comment: Speci men Type: BLOOD SPECIMENOrdering Facility: [facility] Address: [address] [place] [address] Performed By: #### 2 4323-8 ####[facility] LABORATORYCLIA [id number] [address] [place] Anion gap [Moles/Vol] 14 mmol/L Normal 8-15 [facility] Comment on above: Order Comment: Speci men Type: BLOOD SPECIMENOrdering Facility: [facility] Address: [address] [place] [address] Performed By: #### 2 4323-8 ####[facility] LABORATORYCLIA [id number] [address] [place] AST With P-5'-P [Catalytic activity/Vol] 13 U/L Normal 13-35 [facility] Comment on above: Order Comment: Speci men Type: BLOOD SPECIMENOrdering Facility: [facility] Address: [address] [place] [address] Performed By: #### 2 4323-8 ####[facility]ORATORYCLIA [id number] [place] [address] [place] Bilirubin [Mass/Vol] 0.4 mg/dL Normal 0.2-1.3 [facility] Comment on above: Order Comment: Speci men Type: BLOOD SPECIMENOrdering Facility: [facility] Address: [address] [place] [address] Performed By: #### 2 4323-8 ####[facility]ORATORYCLIA [id number] [place] [address] [place] Calcium [Mass/Vol] 9.8 mg/dL Normal 8.5-10.2 [facility] Comment on above: Order Comment: Speci men Type: BLOOD SPECIMENOrdering Facility: [facility] Address: [address] [place] [address] Performed By: #### 2 4323-8 ####[facility]ORATORYCLIA [id number] [place] [address] [place] Chloride [Moles/Vol] 101 mmol/L Normal 98-107 [facility] Comment on above: Order Comment: Speci men Type: BLOOD SPECIMENOrdering Facility: [facility] Address: [address] [place] [address] Performed By: #### 2 4323-8 ####[facility]ORATORYCLIA [id number] [place] [address] [place] CO2 [Moles/Vol] 25 mmol/L Normal 22-30 [facility] Comment on above: Order Comment: Speci men Type: BLOOD SPECIMENOrdering Facility: [facility] Address: [address] [place] [address] Performed By: #### 2 4323-8 ####[facility]ORATORYCLIA [id number] [place] [address] [place] Creatinine [Mass/Vol] 0.74 mg/dL Normal 0.58-0.96 [facility] Comment on above: Order Comment: Conorefra rowland Type: BLOOD SPECIMENOrdering Facility: [facility] Address: [address] [place] [address] Performed By: #### 2 4323-8 ####[facility] LABORATORYCLIA [id number] [address] [place] Creatinine and Glomerular filtration rate.predicted panel (S/P/Bld) 83 mL/min/1.73m??? Normal >=60 [facility] Comment on above: Order Comment: Antwan kashif Type: BLOOD SPECIMENOrdering Facility: [facility] Address: [address] [place] [address] Result Comment: Rosana mated Glomerular Filtration Rate (eGFR) is calculated using the 2020 CKD-EPI creatinine equation. This equation utilizes serum creatinine, sex, and age as parameters. The creatinine assay has traceable calibration to isotope dilution-mass spectrometry. Refer to KDIGO guidelines for clinical interpretation. In patients with unstable renal function, e.g. those with acute kidney injury, the eGFR may not accurately reflect actual GFR. Performed By: #### 2 4323-8 ####[facility] LABORATORYCLIA [id number] [place] [address] [place] Glucose [Mass/Vol] 89 mg/dL Normal 74-99 [facility] Comment on above: Order Comment: Antwan rowland Type: BLOOD SPECIMENOrdering Facility: [facility] Address: [address] [place] [address] Result Comment: The [place] Diabetes Association (ADA) provides guidance for cutoff values for fasting glucose and random glucose. The ADA defines fasting as no caloric intake for at least 8 hours. Fasting plasma glucose results between 100 to 125 mg/dL indicate increased risk for diabetes (prediabetes).Fasting plasma glucose results greater than or equal to 126 mg/dL meet the criteria for diagnosis of diabetes. In the absence of unequivocal hyperglycemia, results should be confirmed by repeat testing. In a patient with classic symptoms of hyperglycemia or hyperglycemic crisis, random plasma glucose results greater than or equal to 200 mg/dL meet the criteria for diagnosis of diabetes.Reference: Standards of Medical Care in Diabetes 2016, [place] Diabetes Association. Diabetes Care. 2016.39(Suppl 1). Performed By: #### 2 4323-8 ####[facility]ORATORYCLIA [id number] [address] [place] Potassium [Moles/Vol] 4.1 mmol/L Normal 3.7-5.1 [facility] Comment on above: Order Comment: Speci men Type: BLOOD SPECIMENOrdering Facility: [facility] Address: [address] [place] [address] Performed By: #### 2 4323-8 ####[facility]ORATORYCLIA [id number] [place] [address] [place] Protein [Mass/Vol] 7.3 g/dL Normal 6.3-8.0 [facility] Comment on above: Order Comment: Speci men Type: BLOOD SPECIMENOrdering Facility: [facility] Address: [address] [place] [address] Performed By: #### 2 4323-8 ####[facility] LABORATORYCLIA [id number] [address] [place] Sodium [Moles/Vol] 140 mmol/L Normal 136-144 [facility] Comment on above: Order Comment: Speci men Type: BLOOD SPECIMENOrdering Facility: [facility] Address: [address] [place] [address] Performed By: #### 2 4323-8 ####[facility] LABORATORYCLIA [id number] [address] [place] Urea nitrogen [Mass/Vol] 15 mg/dL Normal 7-21 [facility] Comment on above: Order Comment: Speci men Type: BLOOD SPECIMENOrdering Facility: [facility] Address: [address] [place] [address] Performed By: #### 2 4323-8 ####[facility]ORATORYCLIA [id number] [place] [address] [place] ERCPon 11-21-2023 ERCP Normal [facility] NURSING PROGon 11-21-2023 NURSING PROG Normal [facility] [place] 11-21-2023 [place] Normal [facility] XR ERCP READ ONLYon 11-21-19 24 XR ERCP READ ONLY Normal [facility] BLOOD BANK COMMENTon 024 BLOOD BANK COMMENT See Comment Normal [facility] Comment on above: Order Comment: Speci men Type: BLOOD SPECIMEN Ordering Facility: [facility] Address: [address] [place] [address] Result Comment: 2nd sample NEEDED for ABO confirmation (CONABO) Performed By: #### 5 8410-2 #### [facility] CLIA [id number] [address] [place] [address] [place] CASE MGT INIT ASSESon 2023 CASE MGT INIT ASSES Normal [facility] CBC panel Auto (Bld)on 11-19 Erythrocyte distribution width (RBC) [Ratio] 14.3 % Normal 11.5-15.0 [facility] Comment on above: Order Comment: Speci men Type: BLOOD SPECIMEN Ordering Facility: [facility] Address: [address] [place] [address] Performed By: #### 5 8410-2 #### [facility] CLIA [id number] [address] [place] [address] [place] Hematocrit (Bld) [Volume fraction] 34.6 % Low 36.0-46.0 [facility] Comment on above: Order Comment: Speci men Type: BLOOD SPECIMEN Ordering Facility: [facility] Address: [address] [place] [address] Performed By: #### 5 8410-2 #### [facility] CLIA [id number] [address] [place] [address] [place] Hemoglobin (Bld) [Mass/Vol] 10.9 g/dL Low 11.5-15.5 [facility] Comment on above: Order Comment: Speci men Type: BLOOD SPECIMEN Ordering Facility: [facility] Address: [address] [place] [address] Performed By: #### 5 8410-2 #### [facility] CLIA [id number] [address] [place] [address] [place] MCH (RBC) [Entitic mass] 28.2 pg Normal 26.0-34.0 [facility] Comment on above: Order Comment: Speci men Type: BLOOD SPECIMEN Ordering Facility: [facility] Address: [address] [place] [address] Performed By: #### 5 8410-2 #### [facility] CLIA [id number] [address] [place] [address] [place] MCHC (RBC) [Mass/Vol] 31.5 g/dL Normal 30.5-36.0 [facility] Comment on above: Order Comment: Speci men Type: BLOOD SPECIMEN Ordering Facility: [facility] Address: [address] [place] [address] Performed By: #### 5 8410-2 #### [facility] CLIA [id number] [address] [place] [address] [place] MCV (RBC) [Entitic vol] 89.4 fL Normal 80.0-100.0 [facility] Comment on above: Order Comment: Speci men Type: BLOOD SPECIMEN Ordering Facility: [facility] Address: [address] [place] [address] Performed By: #### 5 8410-2 #### [facility] CLIA [id number] [address] [place] [address] [place] Nucleated RBC (Bld) [#/Vol] 10*3/uL Normal <0.01 [facility] Comment on above: Order Comment: Speci men Type: BLOOD SPECIMEN Ordering Facility: [facility] Address: [address] [place] [address] Performed By: #### 5 8410-2 #### [facility] CLIA [id number] [address] [place] [address] [place] Platelet mean volume (Bld) [Entitic vol] 10.0 fL Normal 9.0-12.7 [facility] Comment on above: Order Comment: Speci men Type: BLOOD SPECIMEN Ordering Facility: [facility] Address: [address] [place] [address] Performed By: #### 5 8410-2 #### [facility] CLIA [id number] [address] [place], [place] [address] [facility] [place] Platelets (Bld) [#/Vol] 293 10*3/uL Normal 150-400 [facility] Comment on above: Order Comment: Speci men Type: BLOOD SPECIMEN Ordering Facility: [facility] Address: [address] [place] [address] Performed By: #### 5 8410-2 #### [facility] CLIA [id number] [address] [place] [address] [place] RBC (Bld) [#/Vol] 3.87 10*6/uL Low 3.90-5.20 [facility] Comment on above: Order Comment: Speci men Type: BLOOD SPECIMEN Ordering Facility: [facility] Address: [address] [place] [address] Performed By: #### 5 8410-2 #### [facility] CLIA [id number] [address] [place], [place] [address] [facility] [place] WBC (Bld) [#/Vol] 6.41 10*3/uL Normal 3.70-11.00 [facility] Comment on above: Order Comment: Speci men Type: BLOOD SPECIMEN Ordering Facility: [facility] Address: [address] [place], [place] [address] Performed By: #### 5 8410-2 #### [facility] CLIA [id number] [address] [place], [place] [address] [facility] CNDSon 11-20-2023 CNDS HNO ID: [id number] Author: SHERRILL MCCONNELL MD Service: Hospital Medicine Author Type: Physician Type: Discharge Summary Filed: 11/20/2023 09:14 Note Text: DISCHARGE SUMMARY PATIENT NAME: Marie Blair ADMISSION DATE: 11/18/2023 DISCHARGE DATE: 11/20/2023 Attending Physician: Sherrill Mcconnell MD Code Status: Not on file Highest Readmission Risk Score: 11 The 30 day readmissions risk score is derived from an internally validated risk model which evaluates patient level characteristics, utilization history, medication orders and lab results up until the day of discharge. Patients with a score of 40 or above are considered highest risk for readmission. Specific patient level drivers will be listed at the bottom of the summary. Reason for Hospitalization: Abdominal pain Cholelithiasis, masslike irregular thickening of bladder wall highly suspicious for primary gallbladder cancer the tumor appears invading the adjacent liver and duodenal bulb. Choledocholithiasis with bile duct dilation. Operations During Hospitalization: None Procedures During Hospitalization: No procedures performed Hospital Course: 78 years old presented with 3-week history of right quadrant abdominal pain to outside hospital ultrasound showed multiple gallstones and cholecystitis however MRCP ordered and showed Cholelithiasis, masslike irregular thickening of bladder wall highly suspicious for primary gallbladder cancer the tumor appears invading the adjacent liver and duodenal bulb. Choledocholithiasis with bile duct dilation.. GI and general surgery on board and recommended transfer to [facility]. Patient was accepted and will be transferred today for further management with hepatobiliary surgeon. Consulting Teams During Hospitalization: General surgery and gastroenterology Treatment Team: Attending Provider: Sherrill Mcconnell MD Consulting: Hector Aguilar MD Consulting: Jonathon Valverde MD Attending: MR ALE PACK Consulting: MR SURGERY Patient Condition @ Discharge: Stable Discharge Disposition: Home with Self Care Modification to Baseline: General: AOX3. No acute distress. Well developed, hydrated and nourished. Head: The head is normocephalic and atraumatic without tenderness Neck: The neck is supple without adenopathy. No JVD Cardiac:Regular heart rate, sonido S 1 S2 , no added murmurs or sounds Lung: Sounds are clear in all lobes bilaterally without rales, ronchi, or wheezes Abdominal: soft lax, and non-tender without distention. Bowel sounds are present and normoactive in all four quadrants. Extremities: No swelling or erythema. Neurological: The patient is awake, alert and oriented to person, place, and time with normal speech. Motor function is normal with muscle strength 5/5 bilaterally to upper and lower extremities. Sensation is intact bilaterally. . Cranial nerves are intact. Psychiatric: Appropriate mood and affect. Good judgement and insight. No visual or auditory hallucinations. Information Provided to Patient: Follow-up with primary care I have performed the tkvz-vz-tzts and relevant services for a total of >30 minutes. SIGNATURE: Sherrill Mcconnell MD DATE: November 20, 2023 TIME: 9:12 AM Normal [facility] CT CHEST WO IVCONon 11-20-19 CT CHEST WO IVCON Invalid Interpretation Code [facility] Comprehensive metabolic 2000 panelon 11-20-2023 Albumin [Mass/Vol] 3.1 g/dL Low 3.2-5.0 [facility] Comment on above: Order Comment: Speci men Type: BLOOD SPECIMEN Ordering Facility: [facility] Address: [address] [place] [address] Performed By: #### 2 4323-8, 68160-3, 277- #### [facility] CLIA [id number] [address] [place] [address] [place] ALP [Catalytic activity/Vol] 65 U/L Normal 45-117 [facility] Comment on above: Order Comment: Speci men Type: BLOOD SPECIMEN Ordering Facility: [facility] Address: [address] [place] [address] Performed By: #### 2 4323-8, 22180-8, 2776-03 #### [facility] CLIA [id number] [address] [place], [place] [address] [place] ALT [Catalytic activity/Vol] 8 U/L Low 13-61 [facility] Comment on above: Order Comment: Speci men Type: BLOOD SPECIMEN Ordering Facility: [facility] Address: [address] [place] [address] Result Comment: Resu lts may be falsely depressed after the administration of Sulfasalazine and/or Sulfapyridine. Performed By: #### 2 4323-8, 72087-5, 2777-1 #### [facility] CLIA [id number] [address] [place], [place] [address] [place] Anion gap [Moles/Vol] 8 mmol/L Normal 5-16 [facility] Comment on above: Order Comment: Speci men Type: BLOOD SPECIMEN Ordering Facility: [facility] Address: [address] [place] [address] Performed By: #### 2 4323-8, , 2776-03 #### [facility] CLIA [id number] [address] [place], [place] [address] [place] AST [Catalytic activity/Vol] 12 U/L Normal 8-34 [facility] Comment on above: Order Comment: Speci men Type: BLOOD SPECIMEN Ordering Facility: [facility] Address: [address] [place] [address] Result Comment: Resu lts may be falsely depressed after the administration of Sulfasalazine and/or Sulfapyridine. Performed By: #### 2 4323-8, , 2776-03 #### [facility] CLIA [id number] [address] [place], [place] [address] [place] Bilirubin [Mass/Vol] 0.7 mg/dL Normal 0.2-1.0 [facility] Comment on above: Order Comment: Speci men Type: BLOOD SPECIMEN Ordering Facility: [facility] Address: [address] [place] [address] Performed By: #### 2 4323-8, , 2776-03 #### [facility] CLIA [id number] [address] [place] [address] [place] Calcium [Mass/Vol] 9.6 mg/dL Normal 8.5-10.5 [facility] Comment on above: Order Comment: Speci men Type: BLOOD SPECIMEN Ordering Facility: [facility] Address: [address] [place] [address] Performed By: #### 2 4323-8, , 2776-03 #### [facility] CLIA [id number] [address] [place], [place] [address] [place] Chloride [Moles/Vol] 104 mmol/L Normal 98-107 [facility] Comment on above: Order Comment: Speci men Type: BLOOD SPECIMEN Ordering Facility: [facility] Address: [address] [place] [address] Performed By: #### 2 4323-8, , 2776-03 #### [facility] CLIA [id number] [address] [place] [address] [place] CO2 [Moles/Vol] 29 mmol/L Normal 21-32 [facility] Comment on above: Order Comment: Speci men Type: BLOOD SPECIMEN Ordering Facility: [facility] Address: [address] [place] [address] Performed By: #### 2 4323-8, 21903-6, 2776-03 #### [facility] CLIA [id number] [address] [place] [address] [place] Creatinine [Mass/Vol] 0.85 mg/dL Normal 0.51-0.95 [facility] Comment on above: Order Comment: Speci men Type: BLOOD SPECIMEN Ordering Facility: [facility] Address: [address] [place] [address] Result Comment: Monie ents receiving either N-Acetylcysteine (NAC) or Metamizole prior to venipuncture, may have falsely depressed results. Performed By: #### 2 4323-8, , 2776-03 #### [facility] CLIA [id number] [address] [place] [address] [place] Creatinine and Glomerular filtration rate.predicted panel (S/P/Bld) 70 mL/min/1.73m??? Normal >=60 [facility] Comment on above: Order Comment: Speci men Type: BLOOD SPECIMEN Ordering Facility: [facility] Address: [address] [place] [address] Result Comment: Rosana mated Glomerular Filtration Rate (eGFR) is calculated using the 2020 CKD-EPI creatinine equation. This equation utilizes serum creatinine, sex, and age as parameters. The creatinine assay has traceable calibration to isotope dilution-mass spectrometry. Refer to KDIGO guidelines for clinical interpretation. In patients with unstable renal function, e.g. those with acute kidney injury, the eGFR may not accurately reflect actual GFR. Performed By: #### 2 4323-8, 56141-1, 2776- #### [facility] CLIA [id number] [address] [place] [address] [place] Glucose [Mass/Vol] 86 mg/dL Normal 70-100 [facility] Comment on above: Order Comment: Antwan rowland Type: BLOOD SPECIMEN Ordering Facility: [facility] Address: [address] [place] [address] Result Comment: The [place] Diabetes Association (ADA) provides guidance for cutoff values for fasting glucose and random glucose. The ADA defines fasting as no caloric intake for at least 8 hours. Fasting plasma glucose results between 100 to 125 mg/dL indicate increased risk for diabetes (prediabetes). Fasting plasma glucose results greater than or equal to 126 mg/dL meet the criteria for diagnosis of diabetes. In the absence of unequivocal hyperglycemia, results should be confirmed by repeat testing. In a patient with classic symptoms of hyperglycemia or hyperglycemic crisis, random plasma glucose results greater than or equal to 200 mg/dL meet the criteria for diagnosis of diabetes. Reference: Standards of Medical Care in Diabetes 2016, [place] Diabetes Association. Diabetes Care. 2016.39(Suppl 1). Results may be falsely elevated after the administration of Sulfapyridine. Results may be falsely depressed after the administration of Sulfasalazine. Performed By: #### 2 4323-8, 99514-3, 2776-03 #### [facility] CLIA [id number] [address] [place] [address] [place] Potassium [Moles/Vol] 4.1 mmol/L Normal 3.5-5.1 [facility] Comment on above: Order Comment: Antwan rowland Type: BLOOD SPECIMEN Ordering Facility: [facility] Address: [address] [place] [address] Performed By: #### 2 4323-8, , 2776-03 #### [facility] CLIA [id number] [address] [place] [address] [place] Protein [Mass/Vol] 6.6 g/dL Normal 6.0-8.5 [facility] Comment on above: Order Comment: Antwan rowland Type: BLOOD SPECIMEN Ordering Facility: [facility] Address: [address] [place] [address] Performed By: #### 2 4323-8, , 2776-03 #### [facility] CLIA [id number] [address] [place], [place] [address] [place] Sodium [Moles/Vol] 141 mmol/L Normal 136-145 [facility] Comment on above: Order Comment: Speci men Type: BLOOD SPECIMEN Ordering Facility: [facility] Address: [address] [place] [address] Performed By: #### 2 4323-8, 48839-2, 2777-1 #### [facility] CLIA [id number] [address] [place] [address] [place] Urea nitrogen [Mass/Vol] 14 mg/dL Normal 7-26 [facility] Comment on above: Order Comment: Speci men Type: BLOOD SPECIMEN Ordering Facility: [facility] Address: [address] [place] [address] Performed By: #### 2 4323-8, 68074-0, 2777-1 #### [facility] CLIA [id number] [address] [place] [address] [place] ECG COMPLETEon 11-20-2023 ECG COMPLETE Normal [facility] HISTORY PHYSICALon HISTORY PHYSICAL Normal [facility] Hepatic function 2000 panelo n 11-20-2023 Albumin [Mass/Vol] 3.8 g/dL Low 3.9-4.9 [facility] Comment on above: Order Comment: Speci men Type: BLOOD SPECIMENOrdering Facility: [facility] Address: [address] [place] [address] Performed By: #### 2 4325-3 ####[facility] [id number] [address] [place] ALP [Catalytic activity/Vol] 68 U/L Normal 34-123 [facility] Comment on above: Order Comment: Speci men Type: BLOOD SPECIMENOrdering Facility: [facility] Address: [address] [place] [address] Performed By: #### 2 4325-3 ####[facility]ORYCLIA [id number] [place] [address] [place] ALT With P-5'-P [Catalytic activity/Vol] 8 U/L Normal 7-38 [facility] Comment on above: Order Comment: Speci men Type: BLOOD SPECIMENOrdering Facility: [facility] Address: [address] [place] [address] Performed By: #### 2 4325-3 ####[facility] [id number] [address] OF [facility] AST With P-5'-P [Catalytic activity/Vol] 12 U/L Low 13-35 [facility] Comment on above: Order Comment: Speci men Type: BLOOD SPECIMENOrdering Facility: [facility] Address: [address] [place] [address] Performed By: #### 2 4325-3 ####[facility] [id number] [address] Bilirubin [Mass/Vol] 0.6 mg/dL Normal 0.2-1.3 [facility] Comment on above: Order Comment: Speci men Type: BLOOD SPECIMENOrdering Facility: [facility] Address: [address] [place] [address] Performed By: #### 2 4325-3 ####[facility] [id number] [address] Bilirubin.conjugat ed [Mass/Vol] mg/dL Normal <0.2 [facility] Comment on above: Order Comment: Speci men Type: BLOOD SPECIMENOrdering Facility: [facility] Address: [address] [place] [address] Performed By: #### 2 4325-3 ####[facility] [id number] [address] STATES [facility] Protein [Mass/Vol] 7.0 g/dL Normal 6.3-8.0 [facility] Comment on above: Order Comment: Speci men Type: BLOOD SPECIMENOrdering Facility: [facility] Address: [address] [place] [address] Performed By: #### 2 4325-3 ####[facility]IA [id number] [place] [address] [place] Magnesium SerPl-mCncon 11-19 Magnesium [Mass/Vol] 2.0 mg/dL Normal 1.6-2.6 [facility] Comment on above: Order Comment: Speci men Type: BLOOD SPECIMEN Ordering Facility: [facility] Address: [address] [place] [address] Performed By: #### 2 4323-8, 34599-7, 277-1 #### [facility] CLIA [id number] [address] [place] [address] [place] Phosphate SerPl-mCncon 11-19 Phosphate [Mass/Vol] 4.2 mg/dL Normal 2.5-4.9 [facility] Comment on above: Order Comment: Speci men Type: BLOOD SPECIMEN Ordering Facility: [facility] Address: [address] [place] [address] Result Comment: Elev ated m-protein (paraprotein) levels in the serum may be exhibited in patients with monoclonal gammopathies, causing falsely elevated inorganic phosphorus results. Performed By: #### 2 4323-8, 85082-4, 277- #### [facility] CLIA [id number] [address] [place] [address] [place] TYPE + SCREENon 11-20-2023 ABO A Normal [facility] Comment on above: Order Comment: Speci men Type: BLOOD SPECIMEN Ordering Facility: [facility] Address: [address] [place] [address] Performed By: #### 5 8410-2 #### [facility] CLIA [id number] [address] [place] [address] [place] HISTORICAL AB SCR STATUS Negative Normal [facility] Comment on above: Order Comment: Speci men Type: BLOOD SPECIMEN Ordering Facility: [facility] Address: [address] [place] [address] Performed By: #### 5 8410-2 #### [facility] CLIA [id number] [address] [place] [address] [facility] [place] Rh Nom (Bld) Positive Normal [facility] Comment on above: Order Comment: Speci men Type: BLOOD SPECIMEN Ordering Facility: [facility] Address: [address] [place] [address] Performed By: #### 5 8410-2 #### [facility] CLIA [id number] [address] [place] [address] OF [place] TYPE AND SCREEN EXPIRATION 11/23/2023 23:59 Normal [facility] Comment on above: Order Comment: Speci men Type: BLOOD SPECIMEN Ordering Facility: [facility] Address: [address] [place] [address] Performed By: #### 5 8410-2 #### [facility] CLIA [id number] [address] [place] [address] AFP SerPl-mCncon 11-19-2023 AFP [Mass/Vol] ng/mL Normal <11.0 [facility] Comment on above: Order Comment: Speci men Type: BLOOD SPECIMEN Ordering Facility: [facility] Address: [address] [place] [address] Result Comment: Resu lt rechecked. The Alpha-Fetoprotein test was performed using the Siemens Centaur XP chemiluminometric immunoassay method. Results obtained with different assay methods or kits cannot be used interchangeably. 3.27 The Alpha-Fetoprotein test was performed using the Jason Unicel DxI immunoenzymatic assay. Results obtained with different assay methods or kits cannot be used interchangeably. Performed By: #### 2 4323-8, 41868-3, 2777-1 #### [facility] CLIA [id number] [address] [place] [address] [place] CBC panel Auto (Bld)on 11-18 Erythrocyte distribution width (RBC) [Ratio] 14.4 % Normal 11.5-15.0 [facility] Comment on above: Order Comment: Speci men Type: BLOOD SPECIMEN Ordering Facility: [facility] Address: [address] [place] [address] Performed By: #### 5 8410-2 #### [facility] CLIA [id number] [address] [place] [address] [place] Hematocrit (Bld) [Volume fraction] 36.4 % Normal 36.0-46.0 [facility] Comment on above: Order Comment: Speci men Type: BLOOD SPECIMEN Ordering Facility: [facility] Address: [address] [place] [address] Performed By: #### 5 8410-2 #### [facility] CLIA [id number] [address] [place] [address] [place] Hemoglobin (Bld) [Mass/Vol] 11.6 g/dL Normal 11.5-15.5 [facility] Comment on above: Order Comment: Speci men Type: BLOOD SPECIMEN Ordering Facility: [facility] Address: [address] [place] [address] Performed By: #### 5 8410-2 #### [facility] CLIA [id number] [address] [place] [address] [place] MCH (RBC) [Entitic mass] 28.6 pg Normal 26.0-34.0 [facility] Comment on above: Order Comment: Speci men Type: BLOOD SPECIMEN Ordering Facility: [facility] Address: [address] [place] [address] Performed By: #### 5 8410-2 #### [facility] CLIA [id number] [address] [place] [address] [place] MCHC (RBC) [Mass/Vol] 31.9 g/dL Normal 30.5-36.0 [facility] Comment on above: Order Comment: Speci men Type: BLOOD SPECIMEN Ordering Facility: [facility] Address: [address] [place] [address] Performed By: #### 5 8410-2 #### [facility] CLIA [id number] [address] [place] [address] [place] MCV (RBC) [Entitic vol] 89.9 fL Normal 80.0-100.0 [facility] Comment on above: Order Comment: Speci men Type: BLOOD SPECIMEN Ordering Facility: [facility] Address: [address] [place] [id number] Performed By: #### 5 8410-2 #### [facility] CLIA [id number] [address] [place] [address] [place] Nucleated RBC (Bld) [#/Vol] 10*3/uL Normal <0.01 [facility] Comment on above: Order Comment: Speci men Type: BLOOD SPECIMEN Ordering Facility: [facility] Address: [address] [place] [address] Performed By: #### 5 8410-2 #### [facility] CLIA [id number] [address] [place] [address] [place] Platelet mean volume (Bld) [Entitic vol] 9.5 fL Normal 9.0-12.7 [facility] Comment on above: Order Comment: Speci men Type: BLOOD SPECIMEN Ordering Facility: [facility] Address: [address] [place] [address] Performed By: #### 5 8410-2 #### [facility] CLIA [id number] [address] [place] [address] [place] Platelets (Bld) [#/Vol] 284 10*3/uL Normal 150-400 [facility] Comment on above: Order Comment: Speci men Type: BLOOD SPECIMEN Ordering Facility: [facility] Address: [address] [place] [address] Performed By: #### 5 8410-2 #### [facility] LABORATORY CLIA [id number] [address] [place] [address] [place] RBC (Bld) [#/Vol] 4.05 10*6/uL Normal 3.90-5.20 [facility] Comment on above: Order Comment: Speci men Type: BLOOD SPECIMEN Ordering Facility: [facility] Address: [address] [place] [address] Performed By: #### 5 8410-2 #### [facility] CLIA [id number] OF [place] WBC (Bld) [#/Vol] 7.62 10*3/uL Normal 3.70-11.00 [facility] Comment on above: Order Comment: Antwan rowland Type: BLOOD SPECIMEN Ordering Facility: [facility] Address: [address] [place] [address] Performed By: #### 5 8410-2 #### [facility] CLIA [id number] [address] [place] [address] CEA SerPl-mCncon 11-19-2023 Carcinoembryonic Ag [Mass/Vol] 1.8 ng/mL Normal <=2.5 [facility] Comment on above: Order Comment: Antwan rowland Type: BLOOD SPECIMEN Ordering Facility: [facility] Address: [address] [place] [address] Result Comment: This is a new methodology for this marker. Tumor markers obtained from different assay methods cannot be used interchangeably. Expect results of this assay to run lower than the previous assay. It is recommended to re-baseline patients when changing to a new methodology. Performed By: #### 5 8410-2 #### [facility] CLIA [id number] [address] [place] [address] CONSULTon 11-19-2023 CONSULT HNO ID: [id number] Author: ASHLEY UNGER MD Service: General Surgery Author Type: Physician Type: Consults Filed: 11/20/2023 15:02 Note Text: Attending Note I have personally performed a face to face assessment of the patient and have reviewed the KATHIA note and agree with the documentation with my additions below. I performed a substantive portion of the visit including, but not limited to, the history, review of systems, and physical exam. The medical decision making for the patient was performed as a team with my supervision. Patient underwent MRCP today with concern for potential gallbladder wall cancer. Given these findings in addition of the choledocholithiasis we discussed with the surgical oncology team and they recommend transfer to their institution for potential resection and clearance of her common bile duct and 1 operation. We will set up transfer for this patient she is currently asymptomatic pain is controlled tolerating a diet Signature: Ashley Unger MD Date: 11/20/2023 Time: 3:01 PM Emergency General Surgery - HANDP Examination / Consultation Note SERVICE DATE: 11/19/2023 SERVICE TIME: 8:36 AM REASON FOR CONSULT: Cholecystitis with choledocholithiasis REQUESTING PHYSICIAN: Sherrill Mcconnell MD PRIMARY CARE PHYSICIAN: Trever Billings MD, MD Subjective CHIEF COMPLAINT: Abdominal pain HPI: This is a 78 year old female with PMHx of HTN, HLD, and prior TIA who presents as a transfer from [facility] with concern for choledocholithiasis and cholecystitis. Patient states she has had intermittent RUQ abdominal pain for the past 3-4 weeks. Describes it as an ache that started in her RUQ and now for the past week has been radiating across her upper abdomen and has now become constant. Denies history of GI issues in the past or prior episodes of discomfort, nausea, or similar pain with eating. She denies nausea, vomiting, bowel habit changes, fevers, chills, dysuria, shortness of breath, chest pain, or issues with eating throughout this time. Has never had an EGD before, last colonoscopy 15 years ago and was reportedly normal. Prior abdominal surgeries include open appendectomy in the 1970s. Has a history of TIA for which she takes daily baby aspirin, no other anticoagulation. Patient is afebrile and hemodynamically stable. LFTs normal, no leukocytosis. CT and ultrasound per outside hospital revealed findings of acute cholecystitis with pericholecystic edema and gallbladder wall thickening as well as common bile duct dilatation w/ concern for choledocholithiasis. Patient was transferred to [facility] as [place] does not have ERCP capabilities. MRCP was obtained today which revealed cholelithiasis along with masslike irregular thickening of the bladder wall highly suspicious for primary gallbladder cancer, appearing to invade the adjacent liver and duodenal bulb without definite evidence of metastatic disease in the abdomen. Choledocholithiasis with upstream biliary ductal dilation also seen. Last admit - none PAST MEDICAL HISTORY 08/30/2021: Cataract (lens) fragments in eye following cataract surgery, left eye No date: Essential hypertension 2010: History of TIA (transient ischemic attack) No date: Hypercholesteremia PAST SURGICAL HISTORY 08/30/2021: REMV CATARACT EXTRACAP,INSERT LENS; Left Comment: SN60WF +16.5 D 09/07/2021: REMV CATARACT EXTRACAP,INSERT LENS; Right Comment: SN60WF 16.0D FAMILY HISTORY Problem Relation Age of Onset No Ocular Disease No Family History Social History Tobacco Use Smoking status: Never Smokeless tobacco: Never aspirin, enteric coated (ASPIRIN, ENTERIC COATED) 81 mg EC tablet, Take 81 mg by mouth once daily., Disp: , Rfl: , 11/18/2023 lisinopril (ZESTRIL, PRINIVIL) 10 mg tablet, Take 10 mg by mouth once daily., Disp: , Rfl: , 11/18/2023 atorvastatin (LIPITOR) 20 mg tablet, Take 20 mg by mouth once daily., Disp: , Rfl: , 11/17/2023 clopidogrel (PLAVIX) 75 mg tablet, Take 75 mg by mouth once daily., Disp: , Rfl: propylene glycoL (SYSTANE COMPLETE) 0.6 % drop, Use 1 Drop in both eyes three times daily., Disp: 5 mL, Rfl: 0 ALLERGIES No Known Allergies COMPLETE REVIEW OF SYSTEMS: See HPI Objective PHYSICAL EXAM: Exam: GENERAL: No distress, Alert NEURO: AANDOx3, speaking in full sentences HEENT: normocephalic, sclera anicteric, moist MM LUNGS: Chest rise symmetrical, Unlabored breathing on RA CARDIAC: Regular rate and rhythm via assessment ABDOMEN: Soft, non-distended, mild tenderness to palpation RUQ and epigastric areas without peritoneal signs, negative Chin's sign EXTREMITIES: Moves all extremities, no deformities SKIN: Skin color normal for ethnicity, no pallor, no diaphoresis BP 126/62 Pulse 73 Temp (Src) 97.5 (Oral) Resp 17 Ht 5' 8 (1.73m) Wt 159 lb 3.2 oz (72.2kg) SpO2 95% BMI 24.21 kg/(m2). O2 Therapy: Room Air, Liters: 2 Temp (24hrs), Av.5 ?C (97.7 ?F), (more content not included)... [facility] CONSULT HNO ID: [id number] Author: ALEX LEARY MD Service: Gastroenterology Author Type: Nurse Practitioner Type: Consults Filed: 11/19/2023 13:26 Note Text: Attestation signed by Alex Leary MD at 11/19/2023 1:26 PM Admitted with 3 weeks history of right upper quadrant abdominal pain. No history of EGD in the past. Reports an unremarkable colonoscopy 15 years ago. Denies any GI complaints prior to this event. Denies smoking or drinking. Denies NSAID use. Not on PPI. Ultrasound evidence of cholelithiasis and choledocholithiasis. Unremarkable lab work. Agree with MRCP. If positive will proceed with ERCP. Surgical consultation for cholecystectomy. Okay for full liquid diet. INITIAL CONSULT GASTROENTEROLOGY SERVICE DATE: November 19, 2023 SERVICE TIME: 0930 CONSULTING SERVICE: Gastroenterology REASON FOR CONSULT: choledocholithiasis HPI: Patient is a 78 yo F whom gastroenterology was consulted for choledocholithiasis. PMHx includes: CVA, HPL, HTN, and appendectomy. Patient presents to [facility] ED (11/17) from [facility] with 3 week history of intermittent RUQ abdominal pain. She is in bed, at bedside. She describes the pain as an ache/dull. She reports that the pain was intermittent, but not associated with food, very random. She reports RUQ pain to be localized. She denies any GI history, but reports history of appendicitis. She denies any associated vomiting, but a couple episodes of nausea when the pain started. Denies any bloody stools or change in bowel patterns. Last BM yesterday. She denies any fevers/chills at home. She reports pain present at this time, but mild. No nausea. Patient presented to her PCP office yesterday, who then sent her to [place] ED for further evaluation. Patient denies any tobacco use, alcohol use, or illicit drug use. She reports taking baby ASA daily, but no other anticoagulation. Patient denies any allergies to contrast dye. At [place] ED, RUQ US done showing dilated common bile duct measuring 9mm with common bile duct stones, gallbladder wall thickened and measures 7.3 mm with multiple gallstones. On admission to [facility], patient presents with no leukocytosis or anemia. No electrolyte derangements. LFTs normal. Lipase normal 24. GI history: Patient reports that she has never had any endoscopic procedures. RUQ US 11/18/2023 [facility] Fatty infiltration of the liver Multiple gallstones in and thickened gallbladder wall. Small amount of pericholecystic fluid. Dilated common duct with possible calculus within the common bile duct. Gallbladder: normal distended gallbladder. The gallbladder wall is thickened and measures 7.4mm. there is negative sonographic Chin's sign. There is pericholecystic fluid. There are multiple echogenic structures within the gallbladder, consistent with multiple gallstones. CBD: dilated and measures 9mm. Questionable stone in the common bile duct measuring 8 mm x 5 mm x 5 mm. Impression: Patient is a 78 yo F, GI consulted for possible choledocholithiasis -complains of 3 week history of intermittent, dull RUQ pain, ongoing. -afebrile, no leukocytosis. Hemodynamically stable, VSS. No anemia. LFTs and lipase normal. -+RUQ pain to palpation, w/ + Chin's sign. abdomen soft, non distended. No guarding or rigidity. -RUQ US showing multiple gallstones with thickened gallbladder, and questionable stone in the CBD with dilation of 9mm. Recommendations: 1.) RUQ abdominal pain 2.) fatty liver 3.) acute cholecystitis - suspicion for choledocholithiasis, will order MRCP and await results. Will consider ERCP pending MRCP results. - confirmed that patient is not on anticoagulation at this time. - may start liquid diet. -surgery consulted for possible cholecystitis. - patient currently on Zosyn- continue as ordered. - continue to monitor LFTs for any changes/elevations. - continue to monitor electrolytes, correct as clinically indicated. - IV hydration, supportive care management per primary team. - continue to monitor for any fevers/leukocytosis, hypotension, MS changes, jaundice, w/abdominal pain that may a indicate a concern for acute cholangitis. Consultation requested by Dr. Mcconnell for an opinion regarding choledocholethiasis. My final recommendations will be communicated back to the requesting physician by way of shared medical record or letter via US mail Subjective: Review of Systems Constitutional: Negative for chills and fever. Gastrointestinal: Positive for abdominal pain and nausea. Negative for blood in stool, constipation, diarrhea, heartburn, melena and vomiting. Objective: MEDICATIONS: Current Facility-Administered Medications Medication Dose Route Frequency Provider Last Rate Last Admin NaCl 0 (more content not included)... Normal [facility] Cancer Ag125 SerPl-aCncon - Cancer Ag 125 Qn 18 [arb'U]/mL Normal 0-35 [facility] Comment on above: Order Comment: Specefra rowland Type: BLOOD SPECIMEN Ordering Facility: [facility] Address: [address] [place] [address] Result Comment: This is a new methodology for this marker. Tumor markers obtained from different assay methods cannot be used interchangeably. Expect results of this assay to run lower than the previous assay. It is recommended to re-baseline patients when changing to a new methodology. Performed By: #### 5 8410-2 #### [facility] CLIA [id number] [address] [place] [address] OF [facility] Cancer Ag19-9 SerPl-aCncon 0 11-19-2023 Cancer Ag 19-9 Qn 10.0 [arb'U]/mL Normal <36.0 [facility] Comment on above: Order Comment: Speci kashif Type: BLOOD SPECIMEN Ordering Facility: [facility] Address: [address] [place] [address] Result Comment: [facility] er antigen 19-9 test is used as an aid in monitoring response to treatment or recurrence in patients with established pancreatic, hepatobiliary, or gastrointestinal malignancies. Clinical correlation is required. The CA 19-9 Antigen test was performed using the Jason Clearwave Unicel DXI paramagnetic particle chemiluminescent immunoassay method. Results obtained with different assay methods or kits cannot be used interchangeably. Performed By: #### 2 4323-8, 48367-3, 2777-1 #### [facility] CLIA [id number] [address] [place], [place] [address] [place] Comprehensive metabolic 2000 panelon 11-19-2023 Albumin [Mass/Vol] 3.2 g/dL Normal 3.2-5.0 [facility] Comment on above: Order Comment: Speci men Type: BLOOD SPECIMEN Ordering Facility: [facility] Address: [address] [place] [address] Performed By: #### 2 4323-8, , 2776-03 #### [facility] CLIA [id number] [address] [place] [address] [place] ALP [Catalytic activity/Vol] 71 U/L Normal 45-117 [facility] Comment on above: Order Comment: Speci men Type: BLOOD SPECIMEN Ordering Facility: [facility] Address: [address] [place] [address] Performed By: #### 2 4323-8, , 2776-03 #### [facility] CLIA [id number] [address] [place] [address] [place] ALT [Catalytic activity/Vol] 8 U/L Low 13-61 [facility] Comment on above: Order Comment: Speci men Type: BLOOD SPECIMEN Ordering Facility: [facility] Address: [address] [place] [address] Result Comment: Resu lts may be falsely depressed after the administration of Sulfasalazine and/or Sulfapyridine. Performed By: #### 2 4323-8, , 2776-03 #### [facility] CLIA [id number] [address] [place] [address] [place] Anion gap [Moles/Vol] 5 mmol/L Normal 5-16 [facility] Comment on above: Order Comment: Speci men Type: BLOOD SPECIMEN Ordering Facility: [facility] Address: [address] [place] [address] Performed By: #### 2 4323-8, 95404-4, 2776-03 #### [facility] CLIA [id number] [address] [place] [address] [place] AST [Catalytic activity/Vol] 12 U/L Normal 8-34 [facility] Comment on above: Order Comment: Speci men Type: BLOOD SPECIMEN Ordering Facility: [facility] Address: [address] [place] [address] Result Comment: Resu lts may be falsely depressed after the administration of Sulfasalazine and/or Sulfapyridine. Performed By: #### 2 4323-8, , 2776-03 #### [facility] CLIA [id number] [address] [place] [address] [place] Bilirubin [Mass/Vol] 0.8 mg/dL Normal 0.2-1.0 [facility] Comment on above: Order Comment: Conori kashif Type: BLOOD SPECIMEN Ordering Facility: [facility] Address: [address] [place] [address] Performed By: #### 2 4323-8, , 2776-03 #### [facility] CLIA [id number] [address] [place] [address] [place] Calcium [Mass/Vol] 9.9 mg/dL Normal 8.5-10.5 [facility] Comment on above: Order Comment: Conori kashfi Type: BLOOD SPECIMEN Ordering Facility: [facility] Address: [address] [place] [address] Performed By: #### 2 4323-8, , 2776-03 #### [facility] CLIA [id number] [address] [place] [address] [place] Chloride [Moles/Vol] 106 mmol/L Normal 98-107 [facility] Comment on above: Order Comment: Speci men Type: BLOOD SPECIMEN Ordering Facility: [facility] Address: [address] [place] [address] Performed By: #### 2 4323-8, , 2776-03 #### [facility] CLIA [id number] [address] [place], [place] [address] [place] CO2 [Moles/Vol] 29 mmol/L Normal 21-32 [facility] Comment on above: Order Comment: Antwan rowland Type: BLOOD SPECIMEN Ordering Facility: [facility] Address: [address] [place] [address] Performed By: #### 2 4323-8, , 2776-03 #### [facility] CLIA [id number] [address] [place] [address] [place] Creatinine [Mass/Vol] 0.80 mg/dL Normal 0.51-0.95 [facility] Comment on above: Order Comment: Antwan rowland Type: BLOOD SPECIMEN Ordering Facility: [facility] Address: [address] [place] [address] Result Comment: Monie ents receiving either N-Acetylcysteine (NAC) or Metamizole prior to venipuncture, may have falsely depressed results. Performed By: #### 2 4323-8, , 2776-03 #### [facility] CLIA [id number] [address] [place] [address] STATES OF [facility] Creatinine and Glomerular filtration rate.predicted panel (S/P/Bld) 76 mL/min/1.73m??? Normal >=60 [facility] Comment on above: Order Comment: Antwan rowland Type: BLOOD SPECIMEN Ordering Facility: [facility] Address: [address] [place] [address] Result Comment: Rosana mated Glomerular Filtration Rate (eGFR) is calculated using the 2020 CKD-EPI creatinine equation. This equation utilizes serum creatinine, sex, and age as parameters. The creatinine assay has traceable calibration to isotope dilution-mass spectrometry. Refer to KDIGO guidelines for clinical interpretation. In patients with unstable renal function, e.g. those with acute kidney injury, the eGFR may not accurately reflect actual GFR. Performed By: #### 2 4323-8, , 2776-03 #### [facility] CLIA [id number] [address] [place], [place] [address] [place] Glucose [Mass/Vol] 93 mg/dL Normal 70-100 [facility] Comment on above: Order Comment: Antwan rowland Type: BLOOD SPECIMEN Ordering Facility: [facility] Address: [address] [place], [place] [id number] Result Comment: The [place] Diabetes Association (ADA) provides guidance for cutoff values for fasting glucose and random glucose. The ADA defines fasting as no caloric intake for at least 8 hours. Fasting plasma glucose results between 100 to 125 mg/dL indicate increased risk for diabetes (prediabetes). Fasting plasma glucose results greater than or equal to 126 mg/dL meet the criteria for diagnosis of diabetes. In the absence of unequivocal hyperglycemia, results should be confirmed by repeat testing. In a patient with classic symptoms of hyperglycemia or hyperglycemic crisis, random plasma glucose results greater than or equal to 200 mg/dL meet the criteria for diagnosis of diabetes. Reference: Standards of Medical Care in Diabetes 2016, [place] Diabetes Association. Diabetes Care. 2016.39(Suppl 1). Results may be falsely elevated after the administration of Sulfapyridine. Results may be falsely depressed after the administration of Sulfasalazine. Performed By: #### 2 4323-8, 92988-9, 2776-03 #### [facility] CLIA [id number] [address] [place] [address] [place] Potassium [Moles/Vol] 4.2 mmol/L Normal 3.5-5.1 [facility] Comment on above: Order Comment: Speci men Type: BLOOD SPECIMEN Ordering Facility: [facility] Address: [address] [place], [place] [id number] Performed By: #### 2 4323-8, , 2776-03 #### [facility] CLIA [id number] [address] [place] [address] [place] Protein [Mass/Vol] 6.8 g/dL Normal 6.0-8.5 [facility] Comment on above: Order Comment: Speci men Type: BLOOD SPECIMEN Ordering Facility: [facility] Address: [address] [place], [place] [address] Performed By: #### 2 4323-8, , 2776-03 #### [facility] CLIA [id number] [address] [place] [address] [place] Sodium [Moles/Vol] 140 mmol/L Normal 136-145 [facility] Comment on above: Order Comment: Specefra rowland Type: BLOOD SPECIMEN Ordering Facility: [facility] Address: [address] [place] [address] Performed By: #### 2 4323-8, 70809-0, 2771 #### [facility] CLIA [id number] [address] [place] [address] [place] [facility] Urea nitrogen [Mass/Vol] 15 mg/dL Normal 7-26 [facility] Comment on above: Order Comment: Speci men Type: BLOOD SPECIMEN Ordering Facility: [facility] Address: [address] [place] [address] Performed By: #### 2 4323-8, 93486-4, 27709-28 #### [facility] CLIA [id number] [address] [place] [address] [facility] MRI 3D POST PROCESSINGon MRI 3D POST PROCESSING * * *Final Report* * * DATE OF EXAM: Nov 19 2023 2:27PM [facility] 0280 - MRI 3D POST PROCESSING / PROCEDURE REASON: Choledocolithiasis * * * * Physician Interpretation * * * * MRI ABDOMEN WITHOUT AND WITH IV CONTRAST , 3D REFORMATTED IMAGES CLINICAL HISTORY: RUQ abdominal pain TECHNIQUE: Magnet: 1.5T scanner. Multiplanar MRI of the abdomen with multiple sequences, including both pre- and post-contrast imaging. Additional MR cholangiopancreatography sequences were performed. Image post-processing {Maximum intensity Projection (MIP)} images were created at an off-line workstation by the interpreting physician or with concurrent physician supervision, with images created, reviewed and archived. Contrast: Intravenous: 14ML ml of Dotarem COMPARISON: None. RESULT: Liver: Normal morphology. No hepatic steatosis. No mass. Biliary: Intra and extrahepatic biliary ductal dilation with the common bile duct measuring up to 13 mm. Numerous filling defects in the distal CBD compatible with choledocholithiasis. Gallbladder present with cholelithiasis. There is irregular masslike wall thickening of the mid portion and fundus of the gallbladder, highly suspicious for bladder cancer. There is associated restricted diffusion and irregular enhancement. The lesion appears to invade mildly into the liver (6:48), in segments 5 and 4b. It also invades the duodenal bulb (6:56). Spleen: No mass. No splenomegaly. Pancreas: No mass or duct dilation. Adrenals: No mass. Kidneys: No solid or cystic mass. No hydronephrosis. GI: No dilated bowel or wall thickening along imaged segments. Lymph nodes: No abdominal lymphadenopathy. Mesentery / Peritoneum / Retroperitoneum: No ascites or mass. Vasculature: The celiac axis and SMA are patent. The portal vein and branches, splenic vein, SMV, and hepatic veins are patent. There are atherosclerotic changes without aneurysmal dilation. Bones/Soft Tissues: Degenerative changes. Lower chest: Unremarkable. IMPRESSION: 1. Cholelithiasis, along with masslike irregular thickening of the bladder wall, highly suspicious for primary gallbladder cancer. The tumor appears to invade the adjacent liver and the duodenal bulb. 2. No definite evidence of metastatic disease in the abdomen. 3. Choledocholithiasis with upstream biliary ductal dilation. Program Developer: [facility] Transcribe Date/Time: Nov 19 2023 3:21P Dictated by : ABENA POTTER MD This examination was interpreted and the report reviewed and electronically signed by: ABENA POTTER MD on Nov 19 2023 3:42PM EST [id number] [facility] MRI PANC/DAVID WO/W IVCONon MRI PANC/DAVID WO/W IVCON * * *Final Report* * * DATE OF EXAM: Nov 19 2023 2:27PM [facility] 0730 - MRI PANC/DAVID WO/W IVCON / PROCEDURE REASON: RUQ pain, no fever, no elev WBC * * * * Physician Interpretation * * * * MRI ABDOMEN WITHOUT AND WITH IV CONTRAST , 3D REFORMATTED IMAGES CLINICAL HISTORY: RUQ abdominal pain TECHNIQUE: Magnet: 1.5T scanner. Multiplanar MRI of the abdomen with multiple sequences, including both pre- and post-contrast imaging. Additional MR cholangiopancreatography sequences were performed. Image post-processing {Maximum intensity Projection (MIP)} images were created at an off-line workstation by the interpreting physician or with concurrent physician supervision, with images created, reviewed and archived. Contrast: Intravenous: 14ML ml of Dotarem COMPARISON: None. RESULT: Liver: Normal morphology. No hepatic steatosis. No mass. Biliary: Intra and extrahepatic biliary ductal dilation with the common bile duct measuring up to 13 mm. Numerous filling defects in the distal CBD compatible with choledocholithiasis. Gallbladder present with cholelithiasis. There is irregular masslike wall thickening of the mid portion and fundus of the gallbladder, highly suspicious for bladder cancer. There is associated restricted diffusion and irregular enhancement. The lesion appears to invade mildly into the liver (6:48), in segments 5 and 4b. It also invades the duodenal bulb (6:56). Spleen: No mass. No splenomegaly. Pancreas: No mass or duct dilation. Adrenals: No mass. Kidneys: No solid or cystic mass. No hydronephrosis. GI: No dilated bowel or wall thickening along imaged segments. Lymph nodes: No abdominal lymphadenopathy. Mesentery / Peritoneum / Retroperitoneum: No ascites or mass. Vasculature: The celiac axis and SMA are patent. The portal vein and branches, splenic vein, SMV, and hepatic veins are patent. There are atherosclerotic changes without aneurysmal dilation. Bones/Soft Tissues: Degenerative changes. Lower chest: Unremarkable. IMPRESSION: 1. Cholelithiasis, along with masslike irregular thickening of the bladder wall, highly suspicious for primary gallbladder cancer. The tumor appears to invade the adjacent liver and the duodenal bulb. 2. No definite evidence of metastatic disease in the abdomen. 3. Choledocholithiasis with upstream biliary ductal dilation. Program Developer: TONY Transcribe Date/Time: Nov 19 2023 3:21P Dictated by : ABENA POTTER MD This examination was interpreted and the report reviewed and electronically signed by: ABENA POTTER MD on Nov 19 2023 3:42PM EST [id number] Normal [facility] Magnesium SerPl-mCncon 11-18 Magnesium [Mass/Vol] 2.1 mg/dL Normal 1.6-2.6 [facility] Comment on above: Order Comment: Speci men Type: BLOOD SPECIMEN Ordering Facility: [facility] Address: [address] [place] [address] Performed By: #### 2 4323-8, 38720-4, 2777-1 #### [facility] CLIA [id number] [address] [place] [address] OF [facility] NURSING PROGon 11-19-2023 NURSING PROG HNO ID: [id number] Author: SRINI MAYORGA, RN Service: Nursing Author Type: Registered Nurse Type: Nursing Progress Note Filed: 11/19/2023 19:09 Note Text: Dr. Leary was called at this time and informed of decision to transfer the pt to [facility] and request to D/C the ERCP. New ordered provided. Normal [facility] PT panel Coag (PPP)on 2023 INR Coag (PPP) [Relative time] 1.0 {INR} Normal 0.9-1.3 [facility] Comment on above: Order Comment: Antwan rowland Type: BLOOD SPECIMEN Ordering Facility: [facility] Address: [address] [place] [address] Result Comment: Avis min K Antagonist (VKA) Therapeutic Range: INR 2 to 3 (Target INR of 2.5) Note: For patients treated with VKA drugs, such as warfarin, the [employer] 2012 Guideline recommends a therapeutic INR range of 2 to 3 (target INR of 2.5). This recommendation includes high-risk patients with antiphospholipid syndrome with previous arterial or venous thromboembolism, current-generation mechanical or bioprosthetic aortic heart valve replacement. Note: Patients with mechanical aortic valve replacement and additional risk factors for thromboembolic events (atrial fibrillation, previous thromboembolism, LV dysfunction, hypercoagulable conditions) or an older generation mechanical AVR (i.e., ball in-Cage) or any mechanical MVR should have a INR therapeutic range of 2.5 to 3.5 (target INR of 3). Margot GH, et al. Chest 2012, 141:7S-47S Matteo RA, et al. JACC 2017, 70: 252-289 Performed By: #### 5 8410-2 #### [facility] CLIA [id number] [address] PT Coag (PPP) [Time] 10.9 s Normal 9.7-13.0 [facility] Comment on above: Order Comment: Antwan rowland Type: BLOOD SPECIMEN Ordering Facility: [facility] Address: [address] [id number] Performed By: #### 5 8410-2 #### [facility] CLIA [id number] [address] [id number] [place] Phosphate SerPl-ncon 11-18 Phosphate [Mass/Vol] 4.3 mg/dL Normal 2.5-4.9 [facility] Comment on above: Order Comment: Speci men Type: BLOOD SPECIMEN Ordering Facility: [facility] Address: [address] [id number] Result Comment: Elev ated m-protein (paraprotein) levels in the serum may be exhibited in patients with monoclonal gammopathies, causing falsely elevated inorganic phosphorus results. Performed By: #### 2 4323-8, 40666-2, 2777-1 #### [facility] CLIA [id number] [address] [id number] [place] CBC W/Diff, Automatedon 10-30 Absolute Lymph 1.98 X10 3/uL Normal 0.83-4.51 [facility] Comment on above: Performed By: #### L 500.4050, L100.0100, L501.2450 #### [facility] [address] [place], [address] Absolute Neut 4.6 X10 3/uL Normal 2.0-7.7 [facility] Comment on above: Performed By: #### L 500.4050, L100.0100, L501.2450 #### [facility] [address] [place], [address] Basophils/100 WBC (Bld) 0.5 % Normal 0-1 [facility] Comment on above: Performed By: #### L 500.4050, L100.0100, L501.2450 #### [facility] [address] [place], [address] Eosinophils/100 WBC (Bld) 2.0 % Normal 0-5 [facility] Comment on above: Performed By: #### L 500.4050, L100.0100, L501.2450 #### [facility] [address] [place], [address] Erythrocyte distribution width (RBC) [Ratio] 14.4 % Normal 11.6-14.6 [facility] Comment on above: Performed By: #### L 500.4050, L100.0100, L501.2450 #### [facility] [address] [place], [address] Hematocrit (Bld) [Volume fraction] 37.3 % Normal 37-47 [facility] Comment on above: Performed By: #### L 500.4050, L100.0100, L501.2450 #### [facility] [address] [place], [address] Hemoglobin (Bld) [Mass/Vol] 11.7 g/dL Low 12.0-15.0 [facility] Comment on above: Performed By: #### L 500.4050, L100.0100, L501.2450 #### [facility] [address] [place], [address] IG% 0.300 Normal 0.0-0.9 [facility] Comment on above: Result Comment: IG% - Immature Granulocytes (promyelocytes, myelocytes and metamyelocytes) > 1% indicates that a LEFT SHIFT is Present. Performed By: #### L 500.4050, L100.0100, L501.2450 #### [facility] [address] [place], [address] Lymphocytes/100 WBC (Bld) 26.5 % Normal 19-41 [facility] Comment on above: Performed By: #### L 500.4050, L100.0100, L501.2450 #### [facility] [address] [place], [address] MCH (RBC) [Entitic mass] 28.3 pg Normal 27.0-32.0 [facility] Comment on above: Performed By: #### L 500.4050, L100.0100, L501.2450 #### [facility] [address] [place], [address] MCHC (RBC) [Mass/Vol] 31.4 g/dL Low 32-36 [facility] Comment on above: Performed By: #### L 500.4050, L100.0100, L501.2450 #### [facility] [address] [place], [address] MCV (RBC) [Entitic vol] 90.3 fL Normal 81-99 [facility] Comment on above: Performed By: #### L 500.4050, L100.0100, L501.2450 #### [facility] [address] [place], [address] Monocytes/100 WBC (Bld) 9.4 % Normal 0-10 [facility] Comment on above: Performed By: #### L 500.4050, L100.0100, L501.2450 #### [facility] [address] [place], [address] Neutrophils/100 WBC (Bld) 61.3 % Normal 47-70 [facility] Comment on above: Performed By: #### L 500.4050, L100.0100, L501.2450 #### [facility] [address] [place], [address] Nucleated RBC (Bld) [#/Vol] 0 10*3/uL Normal 0-5 [facility] Comment on above: Performed By: #### L 500.4050, L100.0100, L501.2450 #### [facility] [address] [place], [address] Platelet mean volume (Bld) [Entitic vol] 9.5 fL Normal 6.2-12.0 [facility] Comment on above: Performed By: #### L 500.4050, L100.0100, L501.2450 #### [facility] [address] [place], [address] Platelets (Bld) [#/Vol] 333 10*3/uL Normal 150-450 [facility] Comment on above: Performed By: #### L 500.4050, L100.0100, L501.2450 #### [facility] [address] [place], [address] RBC (Bld) [#/Vol] 4.13 10*6/uL Low 4.2-5.4 [facility] Comment on above: Performed By: #### L 500.4050, L100.0100, L501.2450 #### [facility] [address] [place], [address] RDW SD 47.6 fl High 35.1-43.9 [facility] Comment on above: Performed By: #### L 500.4050, L100.0100, L501.2450 #### [facility] [address] [place], [address] WBC (Bld) [#/Vol] 7.5 10*3/uL Normal 4.4-11.0 [facility] Comment on above: Performed By: #### L 500.4050, L100.0100, L501.2450 #### [facility] [address] [place], [address] Comprehensive Metabolic Prof nvon 11-18-2023 Albumin [Mass/Vol] 3.2 g/dL Normal 3.2-5.0 [facility] Comment on above: Performed By: #### L 500.4050, L100.0100, L501.2450 #### [facility] [address] [place], [address] Albumin/Globulin [Mass ratio] 0.8 {ratio} Low 0.9-2.4 [facility] Comment on above: Performed By: #### L 500.4050, L100.0100, L501.2450 #### [facility] [address] [place], [address] ALK P 72 U/L Normal 45-117 [facility] Comment on above: Performed By: #### L 500.4050, L100.0100, L501.2450 #### [facility] [address] [place], [address] ALT [Catalytic activity/Vol] 16 U/L Normal 13-56 [facility] Comment on above: Performed By: #### L 500.4050, L100.0100, L501.2450 #### [facility] [address] [place], [address] AST [Catalytic activity/Vol] 10 U/L Low 15-37 [facility] Comment on above: Performed By: #### L 500.4050, L100.0100, L501.2450 #### [facility] [address] [place], [address] Bilirubin [Mass/Vol] 0.60 mg/dL Normal 0.20-1.00 [facility] Comment on above: Result Comment: For patients on eltrombopag therapy, use of Dimension [place] TBIL is not recommended. Performed By: #### L 500.4050, L100.0100, L501.2450 #### [facility] [address] [place], [address] BUN/CRE 18.5 RATIO Normal 10-20 [facility] Comment on above: Performed By: #### L 500.4050, L100.0100, L501.2450 #### [facility] [address] [place], [address] CA,Total 10.3 mg/dL High 8.5-10.1 [facility] Comment on above: Performed By: #### L 500.4050, L100.0100, L501.2450 #### [facility] [address] [place], [address] Chloride [Moles/Vol] 108 mmol/L High 98-107 [facility] Comment on above: Performed By: #### L 500.4050, L100.0100, L501.2450 #### [facility] [address] [place], [address] CO2 [Moles/Vol] 28.0 mmol/L Normal 21.0-32.0 [facility] Comment on above: Performed By: #### L 500.4050, L100.0100, L501.2450 #### [facility] [address] [place], [address] Creatinine [Mass/Vol] 0.81 mg/dL Normal 0.55-1.02 [facility] Comment on above: Result Comment: The validity of the calculated GFR GFRAA in patients over 70 years has not been determined. Clinical correlation is essential. Performed By: #### L 500.4050, L100.0100, L501.2450 #### [facility] [address] [place], [address] ECRCL 57.74 ml/min Normal [facility] Comment on above: Performed By: #### L 500.4050, L100.0100, L501.2450 #### [facility] [address] [place], [address] EST GFR - AA 88 mL/min Normal >60 [facility] Comment on above: Result Comment: Afri can Greek GFR Calc Performed By: #### L 500.4050, L100.0100, L501.2450 #### [facility] [address] [place], [address] GAP 4 Low 5-15 [facility] Comment on above: Performed By: #### L 500.4050, L100.0100, L501.2450 #### [facility] [address] [place], [address] GFR/1.73 sq M.predicted among non-blacks MDRD (S/P/Bld) [Vol rate/Area] 73 mL/min/{1.73_m2} Normal >60 [facility] Comment on above: Result Comment: Non- GFR Calc Performed By: #### L 500.4050, L100.0100, L501.2450 #### [facility] [address] [place], [address] Globulin (S) [Mass/Vol] 4.2 g/dL Normal 2.2-4.2 [facility] Comment on above: Performed By: #### L 500.4050, L100.0100, L501.2450 #### [facility] [address] [place], [address] Glucose [Mass/Vol] 99 mg/dL Normal 74-106 [facility] Comment on above: Performed By: #### L 500.4050, L100.0100, L501.2450 #### [facility] [address] [place], [address] Potassium [Moles/Vol] 4.5 mmol/L Normal 3.5-5.1 [facility] Comment on above: Performed By: #### L 500.4050, L100.0100, L501.2450 #### [facility] [address] [place], [address] Sodium [Moles/Vol] 140 mmol/L Normal 136-145 [facility] Comment on above: Performed By: #### L 500.4050, L100.0100, L501.2450 #### [facility] [address] [place], [address] T PROT 7.4 g/dL Normal 6.4-8.2 [facility] Comment on above: Performed By: #### L 500.4050, L100.0100, L501.2450 #### [facility] [address] [place], [address] Urea nitrogen [Mass/Vol] 15 mg/dL Normal 7-18 [facility] Comment on above: Performed By: #### L 500.4050, L100.0100, L501.2450 #### [facility] [address] [place], [address] Emergency Department Summary on 11-18-2023 Emergency Department Summary [facility] Medical Records Department [address] [place] [address] Emergency Department Summary 11/18/23 MR#: [id number] Acct: [id number] Name: MARIE BLAIR Rep #: [id number] : 1945 78 From: Jose Duke MD PCP: Dr. Joe Muller MD Status:REG ER Location: ED HPI HPI - GI History of Present Illness Chief Complaint: Abd Pain Informant: patient Abdominal Pain/Flank Pain Onset: Days Context: Gradual Onset Timing: Continuous Location: RUQ Current Severity: Mild Maximum Severity: Mild Worsened by: Nothing Relieved by: Nothing Narrative Narrative: 78-year-old female history of recently diagnosed gallstones and hypertension. She has had a prior appendectomy. Was diagnosed with gallstones and has been having intermittent abdominal pain. She was supposed to see general surgery today Dr. Madrigal. Office called her and 1 to come to the emergency department instead. Prior similar symptoms: Yes Recent Illness/Hospitalization: No PFSH PFSH Medical History Squamous cell carcinoma in situ Skin lesion Atherosclerosis of both carotid arteries Pure hypercholesterolemia Benign essential HTN Home Medications ???Medication ???Instructions ???Recorded ???Last Taken ???Type lisinopril 20 mg tablet 10 mg PO DAILY BLOOD PRESSURE 11/14/17 12/02/17 07:30 History atorvastatin 20 mg tablet 20 mg PO DAILY CHOLESTEROL 11/18/23 Unknown History Allergy/AdvReac Type Severity Reaction Status Date / Time No Known Allergies Allergy Verified 11/18/23 08:55 Family History Unknown No problems noted. Family History no significant family his Surgical History History of squamous cell carcinoma excision Social History Smoking Status: Never smoker alcohol intake: never substance use type: does not use additional social history: DOES USE ASPIRIN DOES NOT USE IBUPROFEN ROS ROS ED ROS Narrative Right upper quadrant abdominal pain Review of Systems ROS Unobtainable: Denies due to encephalopathy Constitutional Constitutional ED: Denies chills or fever(s) ENT ENT ED: Denies ear pain Cardiovascular Cardiovascular: Denies chest pain Respiratory/Chest Respiratory/Chest: Denies cough or dyspnea Gastrointestinal Gastrointestinal: Reports abdominal pain Genitourinary Genitourinary ED: Denies dysuria or hematuria Musculoskeletal Musculoskeletal: Denies arthralgias Integumentary Denies abscess or Abrasions Neurologic Neurologic: Denies headache(s) Psychiatric Psychiatric: Denies anxiety or depression Endocrine Endocrinology: Denies polydipsia or polyphagia Hematologic/Lymphatic Hematologic/Lymphatic: Denies easy bleeding or easy bruising Allergic/Immunologic Allergic/Immunologic ED: Denies mouth swelling, tongue swelling or urticaria EXAM Physical Exam Narrative Exam Narrative: 78-year-old female no acute distress. Vital signs stable afebrile. She is sitting upright in bed. at bedside. She is in no distress. H EENT exam unremarkable. Moist mucous membranes. Neck nontender. Lungs clear. Heart regular rate and rhythm no murmur. Rate about 90. Abdomen is soft nondistended. Normal bowel sounds without peritoneal signs. She does have tenderness in the right upper quadrant. Right lower quadrant and left-sided abdomen are nontender. No hernia or mass. No obstruction. Back nontender. Moving all 4 extremities. Nontender no edema. She is awake and alert. No focal motor deficits. Const Vital Signs: 11/18/23 08:55 11/18/23 10:53 Temperature 97.3 F L Temperature Source Temporal Pulse Rate 100 73 Respiratory Rate 18 16 Blood Pressure 150/82 H 158/84 H Blood Pressure Mean 104 108 Pulse Ox 98 97 Oxygen Delivery Method Room Air Room Air Positive well nourished and well developed; Negative for obese, cachectic, contractures or unkempt General Appearance ED: well developed and NAD; Negative for unkempt, cachectic, contractures or pallor Nutritional Appearance: Negative for cachectic or obese HEENT Reports moist mucous membranes normocephalic and atraumatic; Negative for trauma or tenderness Eyes PERRL and EOMs intact bilaterally General Eye ED: Negative for pale conjunctiva or scleral icterus Neck no lymphadenopathy, supple and no JVD General: Negative for tenderness Carotids: Negative for other Lymph Lymphatic: Negative for other Resp normal respiratory effort and clear to auscultation bilaterally Effort and Inspection: Negative for respiratory distress Auscultation: Negative for rales, rhonchi, wheezes or diminished lung sounds Cardio regular rate, regular (more content not included)... Normal [facility] Gallbladderon 11-18-2023 Gallbladder [facility] Services [address] [place] [address] Gallbladder MR#: [id number] Acct: [id number] Name: MARIE BLAIR Rep #: [id number] : 1945 F 78 From: Martin watters MD PCP: Dr. Joe Muller MD Status: REG ER Study: Gallbladder Date of Exam: 11/18/23 Exam# [id number] Ordering Dr: Jose Duke MD [id number] STUDY: ABDOMINAL ULTRASOUND - RIGHT UPPER QUADRANT REASON FOR VISIT: Female, 78 years old ABDOMEN PAIN TECHNIQUE: Ultrasound evaluation of the right upper quadrant was performed with real-time and static zhou-scale imaging. TECHNICAL QUALITY: Limited. Examination limited by bowel gas. COMPARISON: Comparison is made with prior study November 07, 2023. ____ FINDINGS: Liver: The liver measures 14.9 cm. There is increased echogenicity consistent with fatty infiltration. The bile ducts are within normal limits. There is hepatic color flow. The direction of portal flow is hepatopetal. There is no demonstrated mass lesion. Gallbladder: Normal distended gallbladder. The gallbladder wall is thickened and measures 7.4 mm. There is a negative sonographic Chin''s sign. There is pericholecystic fluid. There are multiple echogenic structures within the gallbladder, consistent with multiple gallstones. Common Bile Duct (C.B.D.): The common bile duct is dilated and measures 9 mm. Questionable stone in the common bile duct measuring 8 mm x 5 mm x 5 mm. Pancreas: Normal size of the head, body of the pancreas. The tail portion is obscured due to overlying bowel gas. There is normal echogenicity of the pancreas. There is no demonstrated pancreatic mass or cyst. Right Kidney: Normal size of the right kidney. The right kidney measures 9.7 cm x 5.1 cm x 3.5 cm. Normal renal cortex. The right cortex measures 1.1 cm. There is no demonstrated renal mass or cyst. There is no right hydronephrosis. ____ US/Gallbladder IMPRESSION: Fatty infiltration of the liver. Multiple gallstones and thickened gallbladder wall. Small amount of pericholecystic fluid. Dilated common duct with possible calculus within the common bile duct. Electronically Signed: Martin James MD at 11:00 EDT Reading Location ID and State: [address] [place] [address] , Service support , CC: Dr. Joe Muller MD; Dr. Jose Duke MD Program Developer: Signed Normal [facility] H AND P Exam - Hospitaliston 11-18-2023 H&P Exam - Hospitalist [facility] Medical Records Department [address] [place] [address] H P Exam - Hospitalist 11/18/23 1201 MR#: [id number] Acct: [id number] Name: MARIE BLAIR Rep #: [id number] : 1945 78 From: Marah Sebastian MD PCP: Dr. Joe Muller MD Status:REG ER Location: ED HPI - General General Date of Admission: 11/18/23 Date of Service: 11/18/23 Chief Complaint: Abdominal pain HPI Narrative The patient is a 78 y/o F w/ PMHx: Hx TIA, HTN, HLD, Carotid disease, Possible chronic normocytic anemia who presents to the [facility] ED on 11/18/23 with abdominal discomfort recently diagnosed with gallstones as well as hypertension with intermittent abdominal colicky pain with plan for evaluation by general surgery on day of presentation specifically Dr. Madrigal; however, she was called by the surgery office and recommended that she present to the ED for further evaluation to be cautious. She reports the pain is being gradual in onset over the last several days and now continuous specifically focal to the right upper quadrant with tenderness to palpation in the right quadrants. In the ED she notes mild nausea but no recent emesis. She notes that this has been ongoing for at least a week and not abating. Workup in the ED included T97.3, heart rate 100, BP 150/82, respiratory rate 18, 98% room air, CBC with WC 7.5, hemoglobin 0.7, MCV 90.3, platelet 333 without marked shift, CMP with chloride 108, calcium 10.3, hepatic profile unremarkable otherwise, gallbladder ultrasound with fatty infiltration of the liver, multiple gallstones and thickened gallbladder wall with a small amount of pericholecystic fluid, dilated common bile duct with possible calculus within the common bile duct. ED discussed case with gastroenterology for possible ERCP. Discussed patient presentation with Dr. Duke and patient will be administered IV Zosyn. [facility] Medical History (Updated 11/18/23 @ 15:[address] Marah Sebastian MD) History of TIA (transient ischemic attack) Squamous cell carcinoma in situ Atherosclerosis of both carotid arteries Pure hypercholesterolemia Benign essential HTN Home Medications ???Medication ???Instructions ???Recorded ???Last Taken ???Type lisinopril 20 mg tablet 10 mg PO DAILY BLOOD PRESSURE 11/14/17 12/02/17 07:30 History atorvastatin 20 mg tablet 20 mg PO DAILY CHOLESTEROL 11/18/23 Unknown History Allergy/AdvReac Type Severity Reaction Status Date / Time No Known Allergies Allergy Verified 11/18/23 08:55 Family History (Updated 11/18/23 @ 15:[address] Marah Sebastian MD) Mother CVA (cerebral vascular accident) Hypertension Father CAD (coronary artery disease) Hypertension Heart disease Myocardial infarction Family History no significant family his Surgical History S/P appendectomy History of squamous cell carcinoma excision Social History household members: spouse Smoking Status: Never smoker alcohol intake: never substance use type: does not use additional social history: DOES USE ASPIRIN DOES NOT USE IBUPROFEN ROS ROS Narrative Admission Review of Systems: CONSTITUTIONAL: No weight loss, fever, chills, + weakness or fatigue. HEENT: Eyes: No visual loss, blurred vision, double vision or yellow sclerae. Ears, Nose, Throat: No hearing loss, sneezing, congestion, runny nose or sore throat. SKIN: No rash or itching, lesions, wounds. CARDIOVASCULAR: No chest pain, chest pressure or chest discomfort, palpitations, edema, orthopnea, syncopal events. RESPIRATORY: No shortness of breath, cough or sputum, wheezing, hemoptysis. GASTROINTESTINAL: + anorexia, nausea, abdominal pain. No vomiting, diarrhea, melena, BRBPR. GENITOURINARY: No dysuria, frequency, urgency or retention. NEUROLOGICAL: No headache, dizziness, syncope, paralysis, ataxia, numbness or tingling in the extremities, focal weakness, change in bowel or bladder control, seizure. MUSCULOSKELETAL: + muscle, back pain, joint pain or stiffness. HEMATOLOGIC: + anemia, easy bleeding/bruising. LYMPHATICS: No enlarged nodes. No history of splenectomy. PSYCHIATRIC: No history of depression or anxiety. ENDOCRINOLOGIC: No reports of sweating, cold or heat intolerance. No polyuria or polydipsia. ALLERGIES: No history of asthma, hives, eczema or rhinitis. Vital Signs Vital Signs Vital Signs: 11/18/23 08:55 11/18/23 10:53 Temperature 97.3 F L Temperature Source Temporal Pulse Rate 100 73 Respiratory Rate 18 16 Blood Pressure 150/82 H 158/84 H Blood Pressure Mean 104 108 Pulse Ox 98 97 Oxygen Delivery Method Room Air Room Air Weight Weight: 155 lb 11.2 oz Body Mass Index (BMI) 23.6 Physical Exam Narrative Physical Examinat (more content not included)... Normal [facility] HISTORY PHYSICALon HISTORY PHYSICAL HNO ID: [id number] Author: SHERRILL MCCONNELL MD Service: Hospital Medicine Author Type: Physician Type: H&P Filed: 11/18/2023 22:11 Note Text: HISTORY AND PHYSICAL EXAMINATION SERVICE DATE: 11/18/2023 SERVICE TIME: 10:01 PM PRIMARY CARE PHYSICIAN: Trever Billings MD, MD Subjective CHIEF COMPLAINT: Abdominal pain HPI: 78 years old with past medical history of hypertension, hyperlipidemia, Hx of mini CVA presented to her primary care office with a 3-week history of right upper quadrant abdominal pain intermittent described as achy pain not related to the food with no nausea or vomiting or change in bowel habits. No urinary symptoms. Was called by her primary care to go to the emergency department she went to [facility]. Her ultrasound of the abdomen showed dilated common bile duct measuring 9 mm with common bile duct stones, gallbladder wall thickened and measures 7.4 mm with multiple gallstones transferred to [facility] for further management and plan. Non-smoker, nonalcoholic PAST MEDICAL HISTORY 08/30/2021: Cataract (lens) fragments in eye following cataract surgery, left eye No date: Essential hypertension 2010: History of TIA (transient ischemic attack) No date: Hypercholesteremia PAST SURGICAL HISTORY 08/30/2021: REMV CATARACT EXTRACAP,INSERT LENS; Left Comment: SN60WF +16.5 D 09/07/2021: REMV CATARACT EXTRACAP,INSERT LENS; Right Comment: SN60WF 16.0D FAMILY HISTORY Problem Relation Age of Onset No Ocular Disease No Family History Social History Tobacco Use Smoking status: Never Smokeless tobacco: Never aspirin, enteric coated (ASPIRIN, ENTERIC COATED) 81 mg EC tablet, Take 81 mg by mouth once daily., Disp: , Rfl: , 11/18/2023 lisinopril (ZESTRIL, PRINIVIL) 10 mg tablet, Take 10 mg by mouth once daily., Disp: , Rfl: , 11/18/2023 atorvastatin (LIPITOR) 20 mg tablet, Take 20 mg by mouth once daily., Disp: , Rfl: , 11/17/2023 clopidogrel (PLAVIX) 75 mg tablet, Take 75 mg by mouth once daily., Disp: , Rfl: propylene glycoL (SYSTANE COMPLETE) 0.6 % drop, Use 1 Drop in both eyes three times daily., Disp: 5 mL, Rfl: 0 ALLERGIES No Known Allergies COMPLETE REVIEW OF SYSTEMS: All other systems were reviewed and are negative PHYSICAL EXAM: Physical Exam Performed: General: Patient is alert and oriented x3 and is in no acute respiratory distress HEENT: Normal cephalic, atraumatic, PERRLA, TM's normal, Nose clear, Mouth normal Neck: Negative hepatojugular reflux or jugular venous distention, negative carotid bruit. Lungs: Clear to auscultation, no wheezing, rales, or rhonchi. Cardiac: Regular rhythm and rate, S1-S2 within normal limits, no murmurs, gallops were appreciated, no rubs. Abdomen: Right upper quadrant mild tenderness, soft and lax extremities: No edema, cyanosis, or clubbing. Skin: No rashes or breakdown. Musculoskeletal: normal MS exam, moves all extremities, DTR's normal Lymphatic: Negative cervical, supra-clavicular, groin lymphadenopathy. Neurologic: Cranial nerves from II-XII intact grossly, no focal deficits. Psychiatry: Normal affect. BP 150/82 Pulse 87 Temp (Src) 97.9 (Oral) Resp 18 Ht 5' 8 (1.73m) Wt 159 lb 3.2 oz (72.2kg) SpO2 97% BMI 24.21 kg/(m2). O2 Therapy: Nasal Cannula, Liters: 2 DATA: No intake or output data in the 24 hours ending 11/18/231 Current Facility-Administered Medications Medication Dose Route Frequency Provider Last Rate Last Admin NaCl 0.9% iv flush bag 20 mL INTRAVENOUS PRN Sherrill Mcconnell MD heparin 5,000 Units injection 5,000 Units SUBCUTANEOUS q 12 H Sherrill Mcconnell MD lactated ringers iv infusion 50 mL/hr INTRAVENOUS CONTINUOUS Sherrill Mcconnell MD piperacillin-tazobactam iv piggyback 3.375 g in dextrose (iso-osmotic) 50 mL (ZOSYN) 3.375 g INTRAVENOUS q 6 H Sherrill Mcconnell MD No results found for this or any previous visit (from the past 36 hour(s)). Assessment/Plan Principal Problem: 78 years old with a 3 weeks history of intermittent right quadrant abdominal pain found to have multiple gallstones and thickened gallbladder wall transferred to [facility] for further management and plan. Acute cholecystitis Choledocholithiasis Fatty liver -Complains of 3 weeks history of right upper quadrant intermittent achy abdominal pain ultrasound of the abdomen was obtained and showed fatty liver, multiple gallstones and thickened gallbladder wall with pericholecystic fluid, dilated common duct with calculus in the common bile duct. -Liver function test are unremarkable -Transferred to [facility] for further management > Consult general surgery, gastroenterology > Start empiric Zosyn Hyperlipidemia Hypertension -Resume home medications as prescribed Mild anemia -Will observe History of mini CVA likely TIA on aspirin -Resume aspirin DVT PPX: Heparin SQ Diet: Keep n.p.o. Code Status: Code, discussed with the patient and she wants to be fully resu (more content not included)... Normal [facility] Lipaseon 11-18-2023 Lipase [Catalytic activity/Vol] 24 U/L Normal 13-75 [facility] Comment on above: Result Comment: Halle astudillo note: LIPASE revised reference range effective 22. New Lipase methodology. Expected to produce lower values than the previous assay method. NEW Reference Range: 13 - 75 U/L Performed By: #### L 500.4050, L100.0100, L501.2450 #### [facility] [address] [place], [address] Abdomen WITH IV Contraston 0 11-11-2023 Abdomen WITH IV Contrast [facility] Imaging Services [address] [place] [address] Abdomen WITH IV Contrast MR#: [id number] Acct: [id number] Name: MARIE BLAIR Rep #: [id number] : 1945 F 78 From: Jerry Kolb MD PCP: Dr. Joe Muller MD Status: REG CLI Study: Abdomen WITH IV Contrast Date of Exam: 4 Exam# [id number] Ordering Dr: Beth Tucker MD ADDENDUM by Dr. Jerry Kolb MD on 11/12/23 at 1209 [id number] STUDY: CT ABDOMEN WITH CONTRAST REASON FOR EXAM: Female, 78 years old. GALLBLADDER MASS RADIATION DOSAGE (If Supplied By Facility): CTDIvol = ( 10.93 ) mGy, DLP = ( 390.05 ) mGycm TECHNIQUE: Transaxial images were obtained post I.V. administration of Oral and amp; IV Gastrografin and amp; 75mL Isovue-300, and with oral contrast. Sagittal and coronal images were reconstructed. Individualized dose optimization techniques were used for this CT. COMPARISON: Ultrasound 11/07/2023 ____ FINDINGS: The visualized lung bases are unremarkable. The visualized portions of the heart are within normal limits. Elevated right hemidiaphragm. Normal liver. Contracted gallbladder with a multiple gallstones wall thickening and stranding in the fat surrounding the fundus the gallbladder worrisome for acute cholecystitis. Mild intrahepatic biliary ductal dilatation. Normal spleen. Normal pancreas. Normal bilateral adrenal glands. Normal right kidney. Normal left kidney. Normal visualized stomach. Normal small intestine. There are multiple colonic diverticula consistent with diverticulosis. The appendix is visualized and appears normal. Normal abdominal aorta. Normal inferior vena cava. Normal retroperitoneum. Normal abdominal wall. Mild dextroscoliosis lumbar spine with degenerative disc disease. ____ 11/12/23 1209 Date cc: Dr. Beth Tucker MD; Dr. Joe Muller MD * Signed ADDENDUM by Dr. Jerry Kolb MD on 11/12/[address]/Abdomen WITH IV Contrast IMPRESSION: Suspect acute cholecystitis and clinical correlation is recommended. N.B. : Melissa Rogers MD, confirmed on 11/12/2023 13:45:13 (ET) that the referring physician received the results and does not require a verbal communication. Electronically Signed: Jerry Kolb MD at 12:09 EDT , 11/12/23 1352 Date cc: Dr. Beth Tucker MD; Dr. Joe Muller MD * Signed We are attempting to reach an attending provider to discuss findings. An addendum with communication details will be sent when the communication is complete. [id number] STUDY: CT ABDOMEN WITH CONTRAST REASON FOR EXAM: Female, 78 years old. GALLBLADDER MASS RADIATION DOSAGE (If Supplied By Facility): CTDIvol = ( 10.93 ) mGy, DLP = ( 390.05 ) mGycm TECHNIQUE: Transaxial images were obtained post I.V. administration of Oral and amp; IV Gastrografin and amp; 75mL Isovue-300, and with oral contrast. Sagittal and coronal images were reconstructed. Individualized dose optimization techniques were used for this CT. COMPARISON: Ultrasound 11/07/2023 ____ FINDINGS: The visualized lung bases are unremarkable. The visualized portions of the heart are within normal limits. Elevated right hemidiaphragm. Normal liver. Contracted gallbladder with a multiple gallstones wall thickening and stranding in the fat surrounding the fundus the gallbladder worrisome for acute cholecystitis. Mild intrahepatic biliary ductal dilatation. Normal spleen. Normal pancreas. Normal bilateral adrenal glands. Normal right kidney. Normal left kidney. Normal visualized stomach. Normal small intestine. There are multiple colonic diverticula consistent with diverticulosis. The appendix is visualized and appears normal. Normal abdominal aorta. Normal inferior vena cava. Normal retroperitoneum. Normal abdominal wall. Mild dextroscoliosis lumbar spine with degenerative disc disease. ____ CT/Abdomen WITH IV Contrast IMPRESSION: Suspect acute cholecystitis and clinical correlation is recommended. Electronically Signed: Jerry Kolb MD at 12:09 EDT , CC: Dr. Beth Tucker MD; Dr. Joe Muller MD Program Developer: Signed Normal [facility] CREATININE FINGERSTICKon CREATININE WB < 1.0 Normal 0.55-1.02 [facility] Comment on above: Performed By: #### L 9100.0200 #### [facility] [address], [address] EGFR WB > 60.0000 Normal >60 [facility] Comment on above: Performed By: #### L 9100.0200 #### [facility] [address] [place], [address] XR CHEST PA/APon 03-29-2022 XR CHEST PA/AP EXAMINATION: XR CHEST PA/AP 03/29/2022, 9:21 AM HISTORY: ORDERING SYSTEM PROVIDED HISTORY: Chest pain. TECHNOLOGIST PROVIDED HISTORY: Illness/Other. Reason for exam: Chest pain. Cancer History: N. Surgery, Radiation History: N. Encounter Type: Initial. Additional signs and symptoms: N. COMPARISON: None available. TECHNIQUE: Portable upright view of the chest. FINDINGS: Scattered punctate calcified lung nodules are present consistent with remote granulomatous disease. The lungs are expanded with no focal airspace consolidation, pneumothorax or sizable pleural effusion. Cardiac silhouette and mediastinal contours are within normal limits. There are atherosclerotic calcifications of the thoracic aortic arch. IMPRESSION: No acute process is identified in the chest. Sequela of remote granulomatous disease. JAR/pji Workstation ID: [id number] Dictated by: MAY KNIGHT on FriMar 29, 2022 9:52:12 AM EST Transcribed by: GEO LARSON on FriMar 29, 2022 10:05:52 AM EST Finalized by: MAY KNIGHT on FriMar 29, 2022 5:42:48 PM EST Normal [facility] Comment on above: Order Comment: Injur y/Trauma or Illness?:Illness/Other How long have you had these symptoms (acute/chronic)?:Acute Reason for exam?:chest pain History of cancer?:n Surgeries, chemotherapy, or radiation?:n Type of Exam?:Initial Additional signs and symptoms?:n Order Reconciliationon 08-30 Order Reconciliation Page 1 Discharge Reconciliation Document Reconciliation Type: Discharge requested on behalf of Darrell Holland (Physician) done by Darrell Holland) Discharge - Reconciliation: 30-Aug-2021 11:14 by: Darrell Holland) Home Medications EnteredHOME MEDICATIONS AT DISCHARGE DateReconciliation Comment/ Additional Information atorvastatin 20 mg oral tablet 1 tab(s) orally once a day 29-Aug-2021 10:09 atorvastatin 20 mg oral tablet 1 tab(s) orally once a day 29-Aug-2021 10:09 atorvastatin 20 mg oral tablet is continued as atorvastatin 20 mg oral tablet clopidogrel 75 mg oral tablet 1 tab(s) orally once a day 29-Aug-2021 10:09 clopidogrel 75 mg oral tablet 1 tab(s) orally once a day 29-Aug-2021 10:09 clopidogrel 75 mg oral tablet is continued as clopidogrel 75 mg oral tablet lisinopril 10 mg oral tablet 1 tab(s) orally once a day 29-Aug-2021 10:09 lisinopril 10 mg oral tablet 1 tab(s) orally once a day 29-Aug-2021 10:09 lisinopril 10 mg oral tablet is continued as lisinopril 10 mg oral tablet Current OrdersDateHOME MEDICATIONS AT DISCHARGE DateReconciliation Comment/ Additional Information Artificial Tears (Preservative Free) SolutionDOSE = 1 drop(s) Left Eye Every 10 Minutes, PRN Dry EyesStop After 4 Doses 23-Aug-2021 08:41 Artificial Tears (Preservative Free) is not required dexAMETHasone Injectable (DECADRON)DOSE = 4 mg IntraVenous Push Once 29-Aug-2021 14:12 dexAMETHasone Injectable is not required Ketorolac 0.5% Ophthalmic. Solution (ACULAR)DOSE = 1 drop(s) Left Eye Every 10 MinutesStop After 4 Doses 23-Aug-2021 08:41 Ketorolac 0.5% Ophthalmic. is not required Lactated Ringers Infusion IV Bag Volume = 1,000 mL Run at: 100 mL/hr IntraVenous 29-Aug-2021 14:12 Lactated Ringers Infusion is not required Lidocaine 1% - Phenylephrine 1.5% Intravitreal SolutionDOSE = 2 mL Intravitreal OnceClinician Notes: To be administered by surgeon 23-Aug-2021 08:41 Lidocaine 1% - Phenylephrine 1.5% Intravitreal is not required Midazolam Injectable (VERSED)DOSE = 1 mg IntraVenous Push Once 29-Aug-2021 14:12 Midazolam Injectable is not required Moxifloxacin 0.5% Ophthalmic. Solution (VIGAMOX)DOSE = 1 mL Left Eye OnceClinician Notes: To be administered by surgeon 23-Aug-2021 08:41 Moxifloxacin 0.5% Ophthalmic. 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 Do not remove any midline, if present, without an order from the provider. Discharge Instructions - PHR After your discharge from the hospital, two Summary of Care Documents will be available online in your Personal Health Record (PHR). 1.Consolidated-Clinical Document Architecture (C-CDA) Patient Discharge Summary This document is a summary of your hospital stay to be kept for your reference.2.C-CDA Visit Summary This document is a summary of your hospital stay to be shared with your follow-up providers (doctor, sleeper cutter, physical therapist, etc.). Post Procedure Discharge Criteria Criteria: Easily arousable / responding appropriately; Significant complications are absent; SpO2 = or > 92%, or if SpO2 < 92%, maintains within 2% of baseline; Vital signs +/- 20% of preprocedure status; Ambulates without dizziness / age appropriate activity and ambulatory status returns to pre-procedure baseline. 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 Do not remove any midline, if present, without an order from the provider. Discharge Instructions - PHR After your discharge from the hospital, two Summary of Care Documents will be available online in your Personal Health Record (PHR). 1.Consolidated-Clinical Document Architecture (C-CDA) Patient Discharge Summary This document is a summary of your hosp (more content not included)... 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), center location, insurance information Prep Instructions Reviewedyes Instructed to Have No Fluids Aftermidnight How to be Addressedbarbara or Maty Spoken Language PreferredEnglish Source of Informationpatient Stated Reason for Admissionleft eye cataract surgery Primary Contact Name and NumberWalter Medications Brought to Hospitalno General Health: Weight in kg79.5 kilogram(s) Weight in opk039.2 pound(s) Weight Methodactual (measured) Scale Typestanding Height in feet5 feet Height in inches7.95 inch(es) Height in cm172.5 centimeter(s) Height Methodstated BMI (kg/m2)26.717 square meter Patient or Family Member Reaction to Anesthesiano previous reaction; no previous family member reaction Blood Avoidance/Restrictionsnone Previous Transfusion Reactionnot applicable Health Mgmt: Symptoms/Conditions Managed at Homeneurological; cardiovascular Neurological Symptoms/Conditionsstroke; TIA Barriers to Managing Healthnone Relationship/Environ: Lives Withspouse Living Arrangementshouse Resource/Environmental Concernsnone [facility] Anticipated at Transitionnone Tobacco Use: Tobacco Useno Pre-op Checklist: Arrival [id number] Arrival Time10:52 Procedure TypeLeft ey cataract surgery NPOyes Last Food [id number] 18:00 Last Clear Fluid [id number] 07:00 ID Band On Patientpatient ID (name) Consent Signedyes H&P Completeyes Anesthesia Assessment Completedyes EKG Performednot ordered Chest X-Ray Performednot ordered Preop Antibioticsnot ordered HCG Urine TestN/A Chlorhexadine Bath Givennot applicable Nasal Antiseptic Appliednot applicable Soap and Water Bath the Night Before Surgeryyes Hair Washed with Shampooyes Bowel Prepno Surgical Site Infection Preventionno Pain Scales and Managementno Additional Information: Information Review: Allergies, Home Meds and Significant Events have been Reviewed and Verified with Patient/Familyyes Allergy, Intolerance, Adverse Event: Allergies: No Known Allergies: Active Problem List: Medical History: Hypercholesterolemia: Catalog Name: Pure hypercholesterolemia, unspecified Hypercholesterolemia: Catalog Name: Pure hypercholesterolemia, unspecified TIA (transient ischemic attack): Catalog Name: Transient cerebral ischemic attack, unspecified, Description: no deficits Surg History: Skin cancer: Catalog Name: Unspecified malignant neoplasm of skin, unspecified History of appendectomy: Catalog Name: Acquired absence of other specified parts of digestive tract Electronic Signatures: Angelina Chaney (ALYCIA) (Signed 30-Aug-2021 11:08) Authored: Initial Info, General Health, Health Mgmt, Relationship/Environ, Pre-op Checklist, Additional Information Batsheva Tan) (Signed 29-Aug-2021 10:11) Authored: Initial Info, General Health, Tobacco Use, Additional Information Last Updated: 30-Aug-2021 11:08 by Angelina Chaney) [facility] US DOPPLER CAROTIDon 021 US DOPPLER CAROTID Patient Info Name: MARIE BLAIR Age: 75 years : 1945 Gender: Female Exam Date: 12/26/2020 9:04 AM Patient Status: Outpatient Car Wash Manager: Shaniqua Lira, CORETTA, RVT Referring Physician: TREVER BILLINGS ; Indications I65.23 - Occlusion and stenosis of bilateral carotid arteries Procedure Description 37697 Duplex examination using B-mode, color and spectral Doppler of extracranial arteries; complete bilateral study. NASCET criteria is used when performing imaging correlation with carotid duplex interpretation. Conclusions * Less than 50% stenosis in the right internal carotid artery. * No evidence of stenosis in the right common carotid, external carotid and subclavian arteries. * Right vertebral artery is patent with antegrade flow. * Less than 50% stenosis in the left internal carotid artery. * Elevated velocity suggestive of stenosis in the left external carotid artery. * No evidence of stenosis in the left common carotid and subclavian arteries. * Left vertebral artery is patent with antegrade flow. Measurements -------- Name Value -------- Right PSV -------- Right Prox CCA PSV 122 cm/s Right Mid CCA PSV 114 cm/s Right Distal CCA PSV 114 cm/s Right Prox ICA PSV 86 cm/s Right Mid ICA PSV 74 cm/s Right Distal ICA PSV 85 cm/s Right ECA PSV 185 cm/s Right Vert PSV 66 cm/s BC PSV 83 cm/s Right Prox SCA PSV 96 cm/s Rt ICA/CCA Ratio 0.8 Measurements -------- Name Value -------- Right EDV -------- Right Prox CCA EDV 23 cm/s Right Mid CCA EDV 23 cm/s Right Distal CCA EDV 31 cm/s Right Prox ICA EDV 16 cm/s Right Mid ICA EDV 24 cm/s Right Distal ICA EDV 27 cm/s Right ECA EDV 25 cm/s Right Vert EDV 22 cm/s BC EDV 0 cm/s Right Prox SCA EDV 0 cm/s Measurements -------- Name Value -------- Left PSV -------- Left Prox CCA PSV 110 cm/s Left Mid CCA PSV 99 cm/s Left Distal CCA PSV 82 cm/s Left Prox ICA PSV 106 cm/s Left Mid ICA PSV 114 cm/s Left Distal ICA PSV 141 cm/s Left ECA PSV 161 cm/s Left Vert PSV 42 cm/s Left Prox SCA PSV 115 cm/s Lt ICA/CCA Ratio 1.3 Measurements -------- Name Value -------- Left EDV -------- Left Prox CCA EDV 33 cm/s Left Mid CCA EDV 30 cm/s Left Distal CCA EDV 25 cm/s Left Prox ICA EDV 35 cm/s Left Mid ICA EDV 30 cm/s Left Distal ICA EDV 48 cm/s Left ECA EDV 25 cm/s Left Vert EDV 11 cm/s Left Prox SCA EDV 0 cm/s Right Findings * No plaque noted in the right common carotid artery. * Heterogeneous plaque noted in the right internal carotid artery. * No plaque noted in the right external carotid artery. Left Findings * No plaque noted in the left common carotid artery. * Heterogeneous plaque noted in the left internal carotid artery. * Heterogeneous plaque noted in the left external carotid artery. Risk Factors Patient has a history of hypertension, hyperlipidemia and stroke. . Report Signatures Finalized by Von Arguello MD, RPVI on 12/27/2020 08:05 AM Normal [facility] Ambulatory [place] Mamm Screen w/CAD if perf ormed bilaton 11-25-2018 [place] Mamm Screen w/CAD if performed bilat Exam Date/Time: 11/24/2018 09:47 EDT Reason for Exam: SCREENING Z12.31 Report STUDY: Digital mammography screening; 11/24/2018 9:47 am ACCESSION NUMBER(S): [id number] ORDERING CLINICIAN: Trever Billings INDICATION: Screening. COMPARISON: Comparison is made to prior digital mammograms dated 10/25/2016 and 10/03/2015 FINDINGS: CC and MLO 2D digital mammographic images of the bilateral breasts were obtained. The breast tissue is heterogeneously dense, which may obscure small masses. A well-defined rounded mass with an associated biopsy clip is seen in the posterior upper outer quadrant of the right breast. A 2nd well-defined rounded mass with associated dystrophic calcifications is seen in the central aspect of the right breast, unchanged from prior studies.No new or enlarging mass or focal asymmetry is identified. No suspicious microcalcifications or foci of architectural distortion are seen. There has been no significant change. This study was interpreted with CAD. IMPRESSION: No mammographic evidence of malignancy. BI-RADS CATEGORY: Category: 2 - Benign Finding. Recommendation: Normal Interval Follow-up, Over Age 40. Recall Interval: 12 Months. Breast Density: Heterogeneous. FINAL REPORT Dictated: 11/25/2018 8:42 am Alex Gregory MD Signed (Electronic Signature): 11/25/2018 8:42 am Signed by: Alex Gregory MD Technologist: MARIETTA Assessment: BI-RADS Category 2-Benign finding Recommendation: Normal interval follow-up Normal [facility] No Panel Information [facility] Vital Signs Date Time Vital Sign Value Performing Clinician Galdino savage 11-09-2024 11:30-0400 Diastolic blood pressure 63 mm[Hg] Stacy Santamaria MD Work Phone: [facility] 11-09-2024 11:30-0400 Heart rate 69 /min Stacy Santamaria MD Work Phone: [facility] 11-09-2024 11:30-0400 Respiratory rate 22 /min Stacy Santamaria MD Work Phone: [facility] 11-09-2024 11:30-0400 SaO2% (BldA) [Mass fraction] 100 % Stacy Santamaria MD Work Phone: [facility] 11-09-2024 11:30-0400 Systolic blood pressure 135 mm[Hg] Stacy Santamaria MD Work Phone: [facility] 11-09-2024 11:00-0400 Body temperature 97.2 [degF] Stacy Santamaria MD Work Phone: [facility] 11-09-2024 08:40-0400 Body height 172.7 cm Stacy Santamaria MD Work Phone: [facility] 11-09-2024 08:40-0400 Body mass index (BMI) [Ratio] 22.8 kg/m2 Stacy Santamaria MD Work Phone: [facility] 11-09-2024 08:40-0400 Body weight 68 kg Stacy Santamaria MD Work Phone: [facility] 07-14-2024 13:19-0400 Body mass index (BMI) [Ratio] 25.23 kg/m2 Tin Fariasi DO Work Phone: [facility] 07-14-2024 13:19-0400 Body temperature 97.5 [degF] Tin Dinorai DO Work Phone: [facility] 07-14-2024 13:19-0400 Body weight 74.16 kg Tin Dinorai DO Work Phone: [facility] 07-14-2024 13:19-0400 Diastolic blood pressure 75 mm[Hg] Tin Dinorai DO Work Phone: [facility] 07-14-2024 13:19-0400 Heart rate 78 /min Tin Dinorai DO Work Phone: [facility] 07-14-2024 13:19-0400 SaO2% (BldA) [Mass fraction] 99 % Tin [employer] Scholari DO Work Phone: [facility] 07-14-2024 13:19-0400 Systolic blood pressure 150 mm[Hg] Tin Fariasi DO Work Phone: [facility] 06-22-2024 09:25-0400 Body mass index (BMI) [Ratio] 24.46 kg/m2 Frontier Orozco SUPERVISOR COMMUNICATIONS AND SIGNALS.INSURANCE PROCESSING CLERK Work Phone: [facility] 06-22-2024 09:25-0400 Body temperature 97.7 [degF] Denice Orozco SUPERVISOR COMMUNICATIONS AND SIGNALS.INSURANCE PROCESSING CLERK Work Phone: [facility] 06-22-2024 09:25-0400 Body weight 71.9 kg Denice Orozco SUPERVISOR COMMUNICATIONS AND SIGNALS.INSURANCE PROCESSING CLERK Work Phone: [facility] 06-22-2024 09:25-0400 Diastolic blood pressure 78 mm[Hg] Denice Orozco SUPERVISOR COMMUNICATIONS AND SIGNALS.INSURANCE PROCESSING CLERK Work Phone: [facility] 06-22-2024 09:25-0400 Heart rate 76 /min Denice Orozco SUPERVISOR COMMUNICATIONS AND SIGNALS.INSURANCE PROCESSING CLERK Work Phone: [facility] 06-22-2024 09:25-0400 SaO2% (BldA) [Mass fraction] 94 % Denice Orozco SUPERVISOR COMMUNICATIONS AND SIGNALS.INSURANCE PROCESSING CLERK Work Phone: [facility] 06-22-2024 09:25-0400 Systolic blood pressure 137 mm[Hg] Denice Orozco SUPERVISOR COMMUNICATIONS AND SIGNALS.INSURANCE PROCESSING CLERK Work Phone: [facility] 06-08-2024 10:11-0400 Body mass index (BMI) [Ratio] 24.35 kg/m2 Taty Pieter SUPERVISOR COMMUNICATIONS AND SIGNALS.INSURANCE PROCESSING CLERK Work Phone: [facility] 06-08-2024 10:11-0400 Body weight 71.58 kg Taty Pieter SUPERVISOR COMMUNICATIONS AND SIGNALS.INSURANCE PROCESSING CLERK Work Phone: [facility] 06-08-2024 10:11-0400 Diastolic blood pressure 76 mm[Hg] Taty Pieter SUPERVISOR COMMUNICATIONS AND SIGNALS.INSURANCE PROCESSING CLERK Work Phone: [facility] 06-08-2024 10:11-0400 Systolic blood pressure 130 mm[Hg] Taty [place] SUPERVISOR COMMUNICATIONS AND SIGNALS.INSURANCE PROCESSING CLERK Work Phone: [facility] 06-04-2024 08:38-0500 Body mass index (BMI) [Ratio] 24.09 kg/m2 Frontier Orozco SUPERVISOR COMMUNICATIONS AND SIGNALS.INSURANCE PROCESSING CLERK Work Phone: [facility] 06-04-2024 08:38-0500 Body temperature 97.81 [degF] Denice Orozco SUPERVISOR COMMUNICATIONS AND SIGNALS.INSURANCE PROCESSING CLERK Work Phone: [facility] 06-04-2024 08:38-0500 Body weight 70.8 kg Denice Orozco SUPERVISOR COMMUNICATIONS AND SIGNALS.INSURANCE PROCESSING CLERK Work Phone: [facility] 06-04-2024 08:38-0500 Diastolic blood pressure 81 mm[Hg] Frontier Orozco SUPERVISOR COMMUNICATIONS AND SIGNALS.INSURANCE PROCESSING CLERK Work Phone: [facility] 06-04-2024 08:38-0500 Heart rate 71 /min Frontier Orozco SUPERVISOR COMMUNICATIONS AND SIGNALS.INSURANCE PROCESSING CLERK Work Phone: [facility] 06-04-2024 08:38-0500 SaO2% (BldA) [Mass fraction] 94 % Frontier Orozco SUPERVISOR COMMUNICATIONS AND SIGNALS.INSURANCE PROCESSING CLERK Work Phone: [facility] 06-04-2024 08:38-0500 Systolic blood pressure 138 mm[Hg] Frontier Orozco SUPERVISOR COMMUNICATIONS AND SIGNALS.INSURANCE PROCESSING CLERK Work Phone: [facility] 05-14-2024 09:02-0500 Body mass index (BMI) [Ratio] 23.85 kg/m2 Frontier Orozco SUPERVISOR COMMUNICATIONS AND SIGNALS.INSURANCE PROCESSING CLERK Work Phone: [facility] 05-14-2024 09:02-0500 Body temperature 97.81 [degF] Frontier Orozco SUPERVISOR COMMUNICATIONS AND SIGNALS.INSURANCE PROCESSING CLERK Work Phone: [facility] 05-14-2024 09:02-0500 Body weight 70.1 kg Frontier Orozco SUPERVISOR COMMUNICATIONS AND SIGNALS.INSURANCE PROCESSING CLERK Work Phone: [facility] 05-14-2024 09:02-0500 Diastolic blood pressure 74 mm[Hg] Frontier Orozco SUPERVISOR COMMUNICATIONS AND SIGNALS.INSURANCE PROCESSING CLERK Work Phone: [facility] 05-14-2024 09:02-0500 Heart rate 78 /min Denice Orozco SUPERVISOR COMMUNICATIONS AND SIGNALS.INSURANCE PROCESSING CLERK Work Phone: [facility] 05-14-2024 09:02-0500 SaO2% (BldA) [Mass fraction] 98 % Denice Orozco SUPERVISOR COMMUNICATIONS AND SIGNALS.INSURANCE PROCESSING CLERK Work Phone: [facility] 05-14-2024 09:02-0500 Systolic blood pressure 128 mm[Hg] Denice Orozco SUPERVISOR COMMUNICATIONS AND SIGNALS.INSURANCE PROCESSING CLERK Work Phone: [facility] 2024 08:35-0500 Body mass index (BMI) [Ratio] 23.61 kg/m2 Frontier Orozco SUPERVISOR COMMUNICATIONS AND SIGNALS.INSURANCE PROCESSING CLERK Work Phone: [facility] 2024 08:35-0500 Body temperature 97.81 [degF] Denice Orozco SUPERVISOR COMMUNICATIONS AND SIGNALS.INSURANCE PROCESSING CLERK Work Phone: [facility] 2024 08:35-0500 Body weight 69.4 kg Frontier Orozco SUPERVISOR COMMUNICATIONS AND SIGNALS.INSURANCE PROCESSING CLERK Work Phone: [facility] 2024 08:35-0500 Diastolic blood pressure 80 mm[Hg] Frontier Orozco SUPERVISOR COMMUNICATIONS AND SIGNALS.INSURANCE PROCESSING CLERK Work Phone: [facility] 2024 08:35-0500 Heart rate 73 /min Frontier Orozco SUPERVISOR COMMUNICATIONS AND SIGNALS.INSURANCE PROCESSING CLERK Work Phone: [facility] 2024 08:35-0500 SaO2% (BldA) [Mass fraction] 97 % Denice Orozco SUPERVISOR COMMUNICATIONS AND SIGNALS.INSURANCE PROCESSING CLERK Work Phone: [facility] 2024 08:35-0500 Systolic blood pressure 135 mm[Hg] Frontier Orozco SUPERVISOR COMMUNICATIONS AND SIGNALS.INSURANCE PROCESSING CLERK Work Phone: [facility] 04-02-2024 08:40-0500 Body mass index (BMI) [Ratio] 23.17 kg/m2 Denice Orozco SUPERVISOR COMMUNICATIONS AND SIGNALS.INSURANCE PROCESSING CLERK Work Phone: [facility] 04-02-2024 08:40-0500 Body temperature 98.1 [degF] Denice Orozco SUPERVISOR COMMUNICATIONS AND SIGNALS.INSURANCE PROCESSING CLERK Work Phone: [facility] 04-02-2024 08:40-0500 Body weight 68.1 kg Denice Orozco SUPERVISOR COMMUNICATIONS AND SIGNALS.INSURANCE PROCESSING CLERK Work Phone: [facility] 04-02-2024 08:40-0500 Diastolic blood pressure 71 mm[Hg] Denice Orozco SUPERVISOR COMMUNICATIONS AND SIGNALS.INSURANCE PROCESSING CLERK Work Phone: [facility] 04-02-2024 08:40-0500 Heart rate 74 /min Frontier Orozco SUPERVISOR COMMUNICATIONS AND SIGNALS.INSURANCE PROCESSING CLERK Work Phone: [facility] 04-02-2024 08:40-0500 SaO2% (BldA) [Mass fraction] 99 % Frontier Orozco SUPERVISOR COMMUNICATIONS AND SIGNALS.INSURANCE PROCESSING CLERK Work Phone: [facility] 04-02-2024 08:40-0500 Systolic blood pressure 125 mm[Hg] Frontier Orozco SUPERVISOR COMMUNICATIONS AND SIGNALS.INSURANCE PROCESSING CLERK Work Phone: [facility] 03-11-2024 09:00-0500 Body mass index (BMI) [Ratio] 22.79 kg/m2 Frontier Orozco SUPERVISOR COMMUNICATIONS AND SIGNALS.INSURANCE PROCESSING CLERK Work Phone: [facility] 03-11-2024 09:00-0500 Body temperature 97.7 [degF] Denice Orozco SUPERVISOR COMMUNICATIONS AND SIGNALS.INSURANCE PROCESSING CLERK Work Phone: [facility] 03-11-2024 09:00-0500 Body weight 67 kg Denice Orozco SUPERVISOR COMMUNICATIONS AND SIGNALS.INSURANCE PROCESSING CLERK Work Phone: [facility] 03-11-2024 09:00-0500 Diastolic blood pressure 73 mm[Hg] Frontier Orozco SUPERVISOR COMMUNICATIONS AND SIGNALS.INSURANCE PROCESSING CLERK Work Phone: [facility] 03-11-2024 09:00-0500 Heart rate 82 /min Frontier Orozco SUPERVISOR COMMUNICATIONS AND SIGNALS.INSURANCE PROCESSING CLERK Work Phone: [facility] 03-11-2024 09:00-0500 SaO2% (BldA) [Mass fraction] 99 % Frontier Orozco SUPERVISOR COMMUNICATIONS AND SIGNALS.INSURANCE PROCESSING CLERK Work Phone: [facility] 03-11-2024 09:00-0500 Systolic blood pressure 133 mm[Hg] Denice Orozco SUPERVISOR COMMUNICATIONS AND SIGNALS.INSURANCE PROCESSING CLERK Work Phone: [facility] 02-20-2024 09:13-0500 Body mass index (BMI) [Ratio] 22.15 kg/m2 Denice Orozco SUPERVISOR COMMUNICATIONS AND SIGNALS.INSURANCE PROCESSING CLERK Work Phone: [facility] 02-20-2024 09:13-0500 Body temperature 97.39 [degF] Denice Orozco SUPERVISOR COMMUNICATIONS AND SIGNALS.INSURANCE PROCESSING CLERK Work Phone: [facility] 02-20-2024 09:13-0500 Body weight 65.1 kg Denice Orozco SUPERVISOR COMMUNICATIONS AND SIGNALS.INSURANCE PROCESSING CLERK Work Phone: [facility] 02-20-2024 09:13-0500 Diastolic blood pressure 74 mm[Hg] Denice Orozco SUPERVISOR COMMUNICATIONS AND SIGNALS.INSURANCE PROCESSING CLERK Work Phone: [facility] 02-20-2024 09:13-0500 Heart rate 87 /min Frontier Orozco SUPERVISOR COMMUNICATIONS AND SIGNALS.INSURANCE PROCESSING CLERK Work Phone: [facility] 02-20-2024 09:13-0500 SaO2% (BldA) [Mass fraction] 100 % Denice Orozco SUPERVISOR COMMUNICATIONS AND SIGNALS.INSURANCE PROCESSING CLERK Work Phone: [facility] 02-20-2024 09:13-0500 Systolic blood pressure 116 mm[Hg] Frontier Orozco SUPERVISOR COMMUNICATIONS AND SIGNALS.INSURANCE PROCESSING CLERK Work Phone: [facility] 01-30-2024 09:11-0400 Body mass index (BMI) [Ratio] 21.67 kg/m2 Frontier Orozco SUPERVISOR COMMUNICATIONS AND SIGNALS.INSURANCE PROCESSING CLERK Work Phone: [facility] 01-30-2024 09:11-0400 Body temperature 97.7 [degF] Frontier Orozco SUPERVISOR COMMUNICATIONS AND SIGNALS.INSURANCE PROCESSING CLERK Work Phone: [facility] 01-30-2024 09:11-0400 Body weight 63.7 kg Denice Orozco SUPERVISOR COMMUNICATIONS AND SIGNALS.INSURANCE PROCESSING CLERK Work Phone: [facility] 01-30-2024 09:11-0400 Diastolic blood pressure 68 mm[Hg] Denice Orozco SUPERVISOR COMMUNICATIONS AND SIGNALS.INSURANCE PROCESSING CLERK Work Phone: [facility] 01-30-2024 09:11-0400 Heart rate 85 /min Frontier Orozco SUPERVISOR COMMUNICATIONS AND SIGNALS.INSURANCE PROCESSING CLERK Work Phone: [facility] 01-30-2024 09:11-0400 SaO2% (BldA) [Mass fraction] 91 % Denice Orozco SUPERVISOR COMMUNICATIONS AND SIGNALS.INSURANCE PROCESSING CLERK Work Phone: [facility] 01-30-2024 09:11-0400 Systolic blood pressure 113 mm[Hg] Frontier Orozco SUPERVISOR COMMUNICATIONS AND SIGNALS.INSURANCE PROCESSING CLERK Work Phone: [facility] 01-05-2024 08:40-0400 Body mass index (BMI) [Ratio] 22.21 kg/m2 Denice Orozco SUPERVISOR COMMUNICATIONS AND SIGNALS.INSURANCE PROCESSING CLERK Work Phone: [facility] 01-05-2024 08:40-0400 Body temperature 97.59 [degF] Frontier Orozco SUPERVISOR COMMUNICATIONS AND SIGNALS.INSURANCE PROCESSING CLERK Work Phone: [facility] 01-05-2024 08:40-0400 Body weight 65.3 kg Frontier Orozco SUPERVISOR COMMUNICATIONS AND SIGNALS.INSURANCE PROCESSING CLERK Work Phone: [facility] 01-05-2024 08:40-0400 Diastolic blood pressure 74 mm[Hg] Frontier Orozco SUPERVISOR COMMUNICATIONS AND SIGNALS.INSURANCE PROCESSING CLERK Work Phone: [facility] 01-05-2024 08:40-0400 Heart rate 100 /min Frontier Orozco SUPERVISOR COMMUNICATIONS AND SIGNALS.INSURANCE PROCESSING CLERK Work Phone: [facility] 01-05-2024 08:40-0400 SaO2% (BldA) [Mass fraction] 97 % Frontier Orozco SUPERVISOR COMMUNICATIONS AND SIGNALS.INSURANCE PROCESSING CLERK Work Phone: [facility] 01-05-2024 08:40-0400 Systolic blood pressure 111 mm[Hg] Frontier Orozco SUPERVISOR COMMUNICATIONS AND SIGNALS.INSURANCE PROCESSING CLERK Work Phone: [facility] 12-26-2023 09:31-0400 Body height 171.5 cm Mikala Jones MD Work Phone: [facility] 12-26-2023 09:31-0400 Diastolic blood pressure 64 mm[Hg] Mikala Jones MD Work Phone: [facility] 12-26-2023 09:31-0400 Heart rate 52 /min Mikala Jones MD Work Phone: [facility] 12-26-2023 09:31-0400 SaO2% (BldA) [Mass fraction] 98 % Mikala Jones MD Work Phone: [facility] 12-26-2023 09:31-0400 Systolic blood pressure 108 mm[Hg] Mikala Jones MD Work Phone: [facility] 12-16-2023 14:42-0400 Body height 171.5 cm Tin Masci DO Work Phone: [facility] 12-16-2023 14:42-0400 Body mass index (BMI) [Ratio] 22.38 kg/m2 Tin Masci DO Work Phone: [facility] 12-16-2023 14:42-0400 Body temperature 97.9 [degF] Tin Masci DO Work Phone: [facility] 12-16-2023 14:42-0400 Body weight 65.77 kg Tin Masci DO Work Phone: [facility] 12-16-2023 14:42-0400 Diastolic blood pressure 78 mm[Hg] Tin Masci DO Work Phone: [facility] 12-16-2023 14:42-0400 Heart rate 104 /min Tin Masci DO Work Phone: [facility] 12-16-2023 14:42-0400 SaO2% (BldA) [Mass fraction] 98 % Tin Masci DO Work Phone: [facility] 12-16-2023 14:42-0400 Systolic blood pressure 116 mm[Hg] Tin Masci DO Work Phone: [facility] 09-07-2021 10:35-0400 Diastolic blood pressure 88 mm[Hg] Darrell Holland MD Work Phone: [facility] 09-07-2021 10:35-0400 Heart rate 92 /min Darrell Holland MD Work Phone: [facility] 09-07-2021 10:35-0400 Respiratory rate 16 /min Darrell Holland MD Work Phone: [facility] 09-07-2021 10:35-0400 SaO2% (BldA) [Mass fraction] 99 % Darrell Holland MD Work Phone: [facility] 09-07-2021 10:35-0400 Systolic blood pressure 151 mm[Hg] Darrell Holland MD Work Phone: [facility] 09-07-2021 10:19-0400 Body temperature 97.9 [degF] Darrell Holland MD Work Phone: [facility] 09-07-2021 09:58-0400 Body height 172.7 cm Darrell Holland MD Work Phone: [facility] 09-07-2021 09:58-0400 Body weight 79.38 kg Darrell Holland MD Work Phone: [facility] 08-31-2021 14:29-0400 Diastolic blood pressure 80 mm[Hg] Darrell Holland MD Work Phone: [facility] 08-31-2021 14:29-0400 Heart rate 65 /min Darrell Holland MD Work Phone: [facility] 08-31-2021 14:29-0400 Systolic blood pressure 135 mm[Hg] Darrell Holland MD Work Phone: [facility] 08-21-2021 11:02-0400 Diastolic blood pressure 80 mm[Hg] Darrell Holland MD Work Phone: [facility] 08-21-2021 11:02-0400 Heart rate 65 /min Darrell Holland MD Work Phone: [facility] 08-21-2021 11:02-0400 Systolic blood pressure 135 mm[Hg] Darrell Holland MD Work Phone: [facility] 08-07-2021 08:44-0400 Diastolic blood pressure 80 mm[Hg] Darrell Holland MD Work Phone: [facility] 08-07-2021 08:44-0400 Heart rate 65 /min Darrell Holland MD Work Phone: [facility] 08-07-2021 08:44-0400 Systolic blood pressure 135 mm[Hg] Darrell Holland MD Work Phone: [facility] Encounters Encounter Date Encounter Type Care Provider Facility Start: 11-09-2024 End: 11-09-2024 Orders Only Mikala Jones MD Work Phone: [facility] Comment on above: Gallbladder cancer (HCC) (Primary Dx) Choledocholithiasis [K80.50] Start: 11-08-2024 Encounter for general adult medical examination without abnormal findings [facility] Start: 11-02-2024 Encounter for other preprocedural examination STACY SANTAMARIA [facility] Start: 11-02-2024 Patient encounter status Mikala Jones MD Work Phone: [facility] Start: 11-02-2024 End: 11-02-2024 ambulatory TIN A DINORAI Facility:[facility] Start: 11-01-2024 End: 11-01-2024 ambulatory Joe Muller MD Work Phone: -[facility] Start: 11-01-2024 End: 11-01-[address] Joe Muller MD -[facility] Start: 11-01-2024 End: 11-01-2024 ambulatory Joe Muller Facility:[facility] Start: 10-26-2024 End: 10-26-2024 Telephone encounter Stacy Santamaria MD Work Phone: [facility] [place] Comment on above: Appointment Choledocholithiasis (Primary Dx) Start: 10-25-2024 End: 10-25-2024 ambulatory TIN A MASCI Facility:[facility] Start: 10-20-2024 End: 10-22-2024 Telephone encounter Tin Jose DO Work Phone: Hematology/Oncology Comment on above: Appointment Start: 10-13-2024 End: 10-13-2024 ambulatory TIN A MASCI Facility:[facility] Start: 10-13-2024 End: 10-13-2024 Subsequent hospital visit by physician [facility] (I-Stat) Work Phone: Cat Scan Comment on above: 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] Start: 10-11-2024 End: 10-12-2024 Telephone encounter Tin Carrizales Dinoraefra KIRK Work Phone: Hematology/Oncology Comment on above: Orders Start: 07-14-2024 End: 07-14-2024 Patient encounter procedure Tin Jose DO Work Phone: Hematology/Oncology Start: 07-14-2024 End: 07-14-2024 ambulatory Tin Jose DO Work Phone: Hematology/Oncology Comment on above: Cholangiocarcinoma (HCC) (Primary Dx) Start: 07-12-2024 End: 07-12-2024 Specialty Pharmacy Randi Crews [facility] Comment on above: [facility] Oral Oncology/hematology - Medicatio n Refill (capecitabine) Start: 07-07-2024 End: 07-07-2024 ambulatory [facility] Facility:[facility] Start: 07-07-2024 End: 07-07-2024 ambulatory [facility] Facility:[facility] Start: 07-07-2024 End: 07-07-2024 Subsequent hospital visit by physician [facility] Cat Scan Comment on above: 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] Start: 06-28-2024 End: 08-28-2024 Follow-up encounter Taty Velazquez APRN.CNP Work Phone: OB/Gynecology Comment on above: Results Start: 06-22-2024 End: 06-22-2024 Patient encounter procedure Denice Orozco APRN.INSURANCE PROCESSING CLERK Work Phone: Hematology/Oncology Start: 06-22-2024 End: 06-22-2024 ambulatory Denice Orozco SUPERVISOR COMMUNICATIONS AND SIGNALS.INSURANCE PROCESSING CLERK Work Phone: Hematology/Oncology Comment on above: Gallbladder cancer (HCC) (Primary Dx) Start: 06-21-2024 End: 06-21-2024 Specialty Pharmacy Randi Crews [facility] Comment on above: SPP Oral Oncology/hematology - Medicatio n Refill (Capecitabine) Start: 06-14-2024 End: 06-14-2024 ambulatory [facility] Facility:[facility] Start: 06-14-2024 End: 06-14-2024 Subsequent hospital visit by physician [employer] [facility] (I-Stat/1.5t) Work Phone: Radiology Comment on above: 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] Start: 06-08-2024 End: 06-08-2024 ambulatory [facility] Facility:[facility] Start: 06-08-2024 End: 06-08-2024 Patient encounter procedure Taty Pieter INSURANCE PROCESSING CLERK Work Phone: OB/Gynecology Comment on above: Adrenal mass greater than 4 cm in diamet er (HCC) (Primary Dx) Start: 06-04-2024 End: 06-04-2024 Patient encounter procedure Denice Orozco APRN.INSURANCE PROCESSING CLERK Work Phone: Hematology/Oncology Start: 06-04-2024 End: 06-04-2024 ambulatory Denice Orozco APRN.INSURANCE PROCESSING CLERK Work Phone: Hematology/Oncology Comment on above: Gallbladder cancer (HCC) (Primary Dx) Start: 06-02-2024 End: 06-02-2024 ambulatory Joe Muller MD Work Phone: [facility] Work Phone: Start: 06-02-2024 End: 06-02-[address] Joe Muller MD -Outpatient Bone Densitometry Work Phone: Start: 06-02-2024 End: 06-02-2024 ambulatory [facility] Facility:[facility] Start: 05-31-2024 End: 05-31-2024 Specialty Pharmacy Randi Crews [facility] Comment on above: SPP Oral Oncology/hematology - Medicatio n Refill (capecitabine) Start: 05-14-2024 End: 05-14-2024 Patient encounter procedure Denice Orozco APRN.INSURANCE PROCESSING CLERK Work Phone: Hematology/Oncology Start: 05-14-2024 End: 05-14-2024 ambulatory Denice Orozco APRN.INSURANCE PROCESSING CLERK Work Phone: Hematology/Oncology Comment on above: Gallbladder cancer (HCC) (Primary Dx) Start: 05-13-2024 End: 05-14-2024 Specialty Pharmacy Randi Crews [facility] Comment on above: SPP Oral Oncology/hematology - Medicatio n Refill (capecitabine) Start: 05-10-2024 End: 05-12-2024 Refill Tin Jose DO Work Phone: Hematology/Oncology Comment on above: Refill Request Start: 04-26-2024 End: 04-26-2024 Telephone encounter Denice Orozco APRN.CNP Work Phone: Hematology/Oncology Comment on above: SPP Oral Oncology/hematology - Medicatio n Refill (capecitabine) Start: 04-26-2024 End: 04-26-2024 ambulatory Waldo Ghosh [facility] Start: 04-26-2024 End: 04-26-2024 Subsequent hospital visit by physician [facility] Mob 2 Work Phone: Radiology Comment on above: 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] Start: 2024 End: 2024 Manual pelvic examination Denice Orozco APRN.CNP Work Phone: Hematology/Oncology Comment on above: Gallbladder cancer (HCC) (Primary Dx); Pelvic cyst in female; Abnormal CT scan, pelvis Start: 2024 End: 2024 Patient encounter procedure Denice Orozco APRN.CNP Work Phone: Hematology/Oncology Start: 2024 End: 04-26-2024 ambulatory CHALON RENZO Facility:[facility] Start: 04-20-2024 End: 04-20-2024 Specialty Pharmacy Waldo Ghosh [facility] Comment on above: SPP Oral Oncology/hematology - Medicatio n Refill (capecitabine) Start: 04-19-2024 End: 04-19-2024 ambulatory CHALON RENZO Facility:[facility] Start: 04-19-2024 End: 04-19-2024 ambulatory CHALON RENZO Facility:[facility] Start: 04-19-2024 End: 04-19-2024 Subsequent hospital visit by physician [facility] (I-Stat) Work Phone: Cat Scan Comment on above: 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] Start: 04-02-2024 End: 04-02-2024 ambulatory Denice Orozco SUPERVISOR COMMUNICATIONS AND SIGNALS.INSURANCE PROCESSING CLERK Work Phone: Hematology/Oncology Comment on above: Gallbladder cancer (HCC) (Primary Dx) Start: 04-02-2024 End: 04-02-2024 Patient encounter procedure Frontierbrendan FarmerOrozco SUPERVISOR COMMUNICATIONS AND SIGNALS.INSURANCE PROCESSING CLERK Work Phone: Hematology/Oncology Start: 03-29-2024 End: 03-29-2024 Specialty Pharmacy [facility] Comment on above: SPP Oral Oncology/hematology - Medicatio n Refill (Capecitabine 500mg) Start: 03-11-2024 End: 03-11-2024 Patient encounter procedure Frontierbrendan FarmerOrozco SUPERVISOR COMMUNICATIONS AND SIGNALS.INSURANCE PROCESSING CLERK Work Phone: Hematology/Oncology Start: 03-11-2024 End: 03-11-2024 ambulatory Frontier Orozco SUPERVISOR COMMUNICATIONS AND SIGNALS.INSURANCE PROCESSING CLERK Work Phone: Hematology/Oncology Comment on above: Gallbladder cancer (HCC) (Primary Dx) Start: 03-08-2024 End: 03-08-2024 [facility] Comment on above: SPP Oral Oncology/hematology - Medicatio n Refill (capecitabine) Start: 02-20-2024 End: 02-20-2024 Patient encounter procedure Frontierbrendan Orozco SUPERVISOR COMMUNICATIONS AND SIGNALS.INSURANCE PROCESSING CLERK Work Phone: Hematology/Oncology Start: 02-20-2024 End: 02-20-2024 ambulatory Denice Orozco SUPERVISOR COMMUNICATIONS AND SIGNALS.INSURANCE PROCESSING CLERK Work Phone: Hematology/Oncology Comment on above: Gallbladder cancer (HCC) (Primary Dx) Start: 02-17-2024 End: 02-17-2024 Specialty Pharmacy Tracie Dunlap [facility] Comment on above: SPP Oral Oncology/hematology - Medicatio n Refill (capecitabine) Start: 02-10-2024 ambulatory Chalon Renzo Facility:[facility] Start: 02-10-2024 End: 02-10-2024 ambulatory Joe [facility] Facility:[facility] Start: 01-30-2024 End: 01-30-2024 Patient encounter procedure Denice Orozco SUPERVISOR COMMUNICATIONS AND SIGNALS.INSURANCE PROCESSING CLERK Work Phone: Hematology/Oncology Start: 01-30-2024 End: 01-30-2024 ambulatory Denice Orozco SUPERVISOR COMMUNICATIONS AND SIGNALS.INSURANCE PROCESSING CLERK Work Phone: Hematology/Oncology Comment on above: Gallbladder cancer (HCC) (Primary Dx) Start: 01-26-2024 End: 01-26-2024 Specialty Pharmacy Randi Crews [facility] Comment on above: SPP Oral Oncology/hematology - Medicatio n Refill (Capecitabine 500 mg) Start: 01-19-2024 End: 01-19-2024 Telephone encounter Teresa Moore RN Hematology/Oncology Start: 01-07-2024 End: 01-08-2024 Telephone encounter Tin Jose DO Work Phone: Hematology/Oncology Start: 01-06-2024 End: 01-06-2024 ambulatory Joe Renzo Facility[facility] Start: 01-05-2024 End: 01-05-2024 ambulatory Denice Orozco SUPERVISOR COMMUNICATIONS AND SIGNALS.INSURANCE PROCESSING CLERK Work Phone: Hematology/Oncology Comment on above: Gallbladder cancer (HCC) (Primary Dx) Start: 01-05-2024 End: 01-05-2024 Patient encounter procedure Denice Orozco SUPERVISOR COMMUNICATIONS AND SIGNALS.INSURANCE PROCESSING CLERK Work Phone: Hematology/Oncology Start: 12-26-2023 End: 12-26-2023 Telephone encounter Teresa Moore RN Hematology/Oncology Comment on above: Interior Design Program Chair - Other (Oral Anti-Canc er Agents Education (Xeloda)) Start: 12-26-2023 End: 12-26-2023 Office outpatient visit 25 minutes Mikala Jones MD Work Phone: [facility] Comment on above: Adenocarcinoma of gallbladder (HCC) (Tracey belen Dx) Start: 12-26-2023 End: 12-26-2023 ambulatory MIKALA JONES Facility:[facility] Start: 12-25-2023 End: 12-25-2023 Orders Only Mikala Jones MD Work Phone: [place] [facility] Start: 12-19-2023 End: 12-19-2023 Telephone encounter Mikala Jones MD Work Phone: [facility] Start: 12-17-2023 End: 12-17-2023 ambulatory Randi Crews [facility] Start: 12-17-2023 End: 12-17-2023 Patient encounter procedure Randi Centenoe [facility] Comment on above: SPP Oral Oncology/hematology - Treatment Referral (Capecitabine); Insurance Authorization (No PA needed) Start: 12-16-2023 End: 12-16-2023 ambulatory Tin Jose DO Work Phone: Hematology/Oncology Comment on above: Gallbladder cancer (HCC) (Primary Dx); Anemia, unspecified type; Cholangiocarcinoma (HCC) Start: 12-16-2023 End: 12-16-2023 Patient encounter procedure Tin Jose DO Work Phone: Hematology/Oncology Start: 12-15-2023 End: 12-15-2023 ambulatory MIKALA JONES Facility:[facility] Start: 12-15-2023 End: 12-15-2023 Postop follow up visit related to original px Mikala Jones MD Work Phone: [facility] Comment on above: Adenocarcinoma of gallbladder (HCC) (Tracey belen Dx) Start: 12-03-2023 End: 12-03-2023 Orders Only Mikala Jones MD Work Phone: [place] [facility] Comment on above: Adenocarcinoma of gallbladder (HCC) (Tracey belen Dx) Start: 11-25-2023 End: 11-25-2023 Evaluation and management of inpatient RUBIARAZA BLAIR Facility:[facility] Start: 11-20-2023 End: 12-06-2023 Evaluation and management of inpatient DELFINA BLACK Facility:[facility] Start: 11-18-2023 End: 11-20-2023 Evaluation and management of inpatient SHERRILL MCCONNELL Facility:[id number] Start: 11-18-2023 ambulatory Jose Duke Facility:[facility] Start: 11-18-2023 ambulatory Joe Muller Facility:[facility] Start: 11-18-2023 End: 11-18-2023 Emergency department patient visit Jose Duke Facility:[facility] Start: 11-11-2023 End: 11-11-2023 ambulatory Beth Tucker Facility:[facility] Start: 04-09-2022 End: 04-09-2022 Patient encounter procedure Darrell Holland MD Work Phone: Ophthalmology Comment on above: Fuchs' corneal dystrophy of both eyes (P rimary Dx); Nevus of choroid of right eye; Pseudophakia of both eyes; Essential hypertension; Hypercholesteremia Start: 03-29-2022 End: 03-29-2022 Emergency department patient visit [facility] Start: 09-08-2021 End: 09-08-2021 Patient encounter procedure Darrell Holland MD Work Phone: Ophthalmology Comment on above: Status post cataract extraction and inse rtion of intraocular lens of right eye (Primary Dx); Status post cataract extraction and insertion of intraocular lens of left eye Start: 09-07-2021 End: 09-07-2021 Subsequent hospital visit by physician Darrell Holland MD Work Phone: LD SURGERY Comment on above: 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] Start: 08-31-2021 End: 08-31-2021 Patient encounter procedure Darrell Holland MD Work Phone: Ophthalmology Comment on above: Combined form of age-related cataract, r ight eye (Primary Dx); Status post cataract extraction and insertion of intraocular lens of left eye; Fuchs' corneal dystrophy of both eyes; Essential hypertension Start: 08-30-2021 End: 08-30-2021 Orders Only Darrell Holland MD Work Phone: [facility] Comment on above: 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 (Primary Dx) Start: 08-21-2021 End: 08-21-2021 Patient encounter procedure Darrell Holland MD Work Phone: Ophthalmology Comment on above: Combined form of age-related cataract, l eft eye (Primary Dx); Combined form of age-related cataract, right eye; Fuchs' corneal dystrophy of both eyes; Punctate keratitis, bilateral; Essential hypertension Start: 08-07-2021 End: 08-07-2021 Patient encounter procedure Darrell Holland MD Work Phone: Ophthalmology Comment on above: Combined form of age-related cataract, r ight eye (Primary Dx); Combined form of age-related cataract, left eye; Fuchs' corneal dystrophy of both eyes; Punctate keratitis, bilateral; Essential hypertension Start: 12-26-2020 End: 12-27-2020 ambulatory [facility] Start: 08-02-2018 Patient encounter procedure Facility:[id number] Procedures Date Procedure Procedure Detail Performing Clinician Start: 11-09-2024 Ercp dx collection s pecimen brushing/washing Stacy Santamaria MD Work Phone: Start: 06-02-2024 Dual energy X-ray absorptiometry Joe Muller MD Work Phone: Start: 11-20-2023 Antibody screen [facility] Comment on above: Order Comment: Speci men Type: BLOOD SPECIMEN Ordering Facility: [facility] Address: [address] [place] [address] Performed By: #### 5 [id number] #### [facility] CLIA [id number] [address] [place] [address] [place] Start: 04-09-2022 Fundus photography w/interpretation & report Darrell Holland MD Work Phone: Start: 08-07-2021 IOL BIOMETRY W/ IOL CALC OU (BOTH EYES) Darrell Holland MD Work Phone: Start: 08-07-2021 End: 08-07-2021 Computerized ophthalmic imaging retina Darrell Holland MD Work Phone: Plan of Treatment Date Care Activity Detail Author Start: 11-03-2027 Diabetes Screening Diabetes Screening [facility] Start: 10-26-2027 Diabetes Screening Diabetes Screening [facility] Start: 07-15-2027 Diabetes Screening Diabetes Screening [facility] Start: 06-23-2027 Diabetes Screening Diabetes Screening [facility] Start: 06-05-2027 Diabetes Screening Diabetes Screening [facility] Start: 05-14-2027 Diabetes Screening Diabetes Screening [facility] Start: 2027 Diabetes Screening Diabetes Screening [facility] Start: 04-02-2027 Diabetes Screening Diabetes Screening [facility] Start: 03-11-2027 Diabetes Screening Diabetes Screening [facility] Start: 02-19-2027 Diabetes Screening Diabetes Screening [facility] Start: 01-29-2027 Diabetes Screening Diabetes Screening [facility] Start: 12-15-2026 Diabetes Screening Diabetes Screening [facility] Start: 12-05-2026 Diabetes Screening Diabetes Screening [facility] Start: 12-02-2026 Diabetes Screening Diabetes Screening [facility] Start: 05-14-2025 BP Controlled (<130/80) BP Controlled (<130/80) [facility] Start: 04-02-2025 BP Controlled (<130/80) BP Controlled (<130/80) [facility] Start: 02-19-2025 BP Controlled (<130/80) BP Controlled (<130/80) [facility] Start: 01-29-2025 BP Controlled (<130/80) BP Controlled (<130/80) [facility] Start: 01-04-2025 BP Controlled (<130/80) BP Controlled (<130/80) [facility] Start: 12-25-2024 BP Controlled (<130/80) BP Controlled (<130/80) [facility] Start: 12-15-2024 BP Controlled (<130/80) BP Controlled (<130/80) [facility] Start: 11-29-2024 Influenza vaccination Influenza Vaccine (#1) [facility] Start: 11-09-2024 End: 02-07-2025 CBC panel - Blood by Automated count COMPLETE BLOOD COUNT Lab Routine Gallbladder cancer (HCC) Expected: 11/09/2024, Expires: 02/07/2025 [facility] Work Phone: Comment on above: Expected: 11/09/2024, Expires: Start: 11-09-2024 End: 02-07-2025 Comprehensive metabolic 2000 panel - Serum or Plasma COMPREHENSIVE METABOLIC PANEL Lab Routine Gallbladder cancer (HCC) Expected: 11/09/2024, Expires: 02/07/2025 [facility] Comment on above: Expected: 11/09/2024, Expires: Start: 11-09-2024 End: 11-09-2024 Patient encounter procedure 11/09/2024 9:30 AM EDT Appointment [facility] [address] [place] [address] Hina, Stacy Abrams MD [address] [facility] [place] [address] ERCP w/possible stent placement, pt not on any blood thinners or diabetic meds to stop [facility] Comment on above: ERCP w/possible stent placement, pt not on any blood thinners or diabetic meds to stop Start: 11-02-2024 End: 11-02-2024 ambulatory 11/02/2024 10:40 AM EDT [facility] [address] [place] [address] ERCP schedule for 11/09 9:[address]am [address] Dr Santamaria [facility] Comment on above: ERCP schedule for 11/09 9:30am [address] Dr Lazaro dodge Start: 10-25-2024 End: 10-25-2024 ambulatory 10/25/2024 8:15 AM EDT Results Only Bridget [facility] [address] [place] [address] [facility] Start: 10-22-2024 End: 01-21-2025 CBC W Auto Differential panel - Blood COMPLETE BLOOD COUNT AND DIFFERENTIAL Lab STAT Gallbladder cancer (HCC) Expected: 10/22/2024, Expires: 01/21/2025 [facility] Work Phone: Comment on above: Expected: 10/22/2024, Expires: Start: 10-22-2024 End: 01-21-2025 Comprehensive metabolic 2000 panel - Serum or Plasma COMPREHENSIVE METABOLIC PANEL Lab Routine Gallbladder cancer (HCC) Expected: 10/22/2024, Expires: 01/21/2025 [facility] Comment on above: Expected: 10/22/2024, Expires: Start: 10-20-2024 End: 10-20-2024 ambulatory [facility] Comment on above: CBC/CMP(S)* 3MO OV* CT 10/13 / CB C/ CMP EARLY* Start: 10-13-2024 End: 01-12-2025 Creatinine and Glomerular filtration rate.predicted panel - Serum, Plasma or Blood CREATININE BLD Lab Routine Cholangiocarcinoma (HCC) Expected: 10/13/2024, Expires: 01/12/2025 [facility] Work Phone: Comment on above: Expected: 10/13/2024, Expires: Start: 10-13-2024 End: 10-13-2024 ambulatory 10/13/2024 8:00 AM EDT Results Only [facility] [address] [place] [address] STAT LABS [facility] Comment on above: STAT LABS Start: 10-13-2024 End: 10-13-2024 Patient encounter procedure Cat Scan Comment on above: : 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] Start: 07-14-2024 End: 07-14-2024 ambulatory [facility] Comment on above: CBC/CMP(S) F/U OV* CT RESULTS / CBC/ CMP EARLIER / PER DENICE Start: 07-14-2024 End: 07-14-2024 Specialty Pharmacy 07/14/2024 7:45 AM EDT Specialty Pharmacy [facility] [address] [place] [address] Pharmacist, [facility]ty[facility] [address] [place] [phone] Refill - Capecitabine [21DS] C007/19 - utr 07/12 [facility] Comment on above: Refill - Capecitabine [21DS] C007/19 - ut r 07/12 Start: 07-12-2024 End: 07-12-2024 Specialty Pharmacy 07/12/2024 8:15 AM EDT Specialty Pharmacy [facility] [address] [place], [place] [id number] [place] [id number] Pharmacist, [facility] [address] [place] [address] [place], [place] [phone] Refill - Capecitabine [21DS] C007/19 [facility] Comment on above: Refill - Capecitabine [21DS] C007/19 Start: 07-07-2024 End: 07-07-2024 Patient encounter procedure Cat Scan Comment on above: CT ABD / PEL / CHEST Start: 07-05-2024 End: 10-04-2024 CREATININE BLD CREATININE BLD Lab Routine Gallbladder cancer (HCC) Expected: 07/05/2024, Expires: 10/04/2024 [facility] Comment on above: Expected: 07/05/2024, Expires: Start: 07-05-2024 End: 07-22-2025 CT Abdomen and Pelvis W contrast IV CT ABD/PEL W IVCON Radiology Routine Gallbladder cancer (HCC) Expected: 07/05/2024, Expires: 07/22/2025 [facility] Work Phone: Comment on above: Expected: 07/05/2024, Expires: Start: 07-05-2024 End: 07-22-2025 CT Chest W contrast IV CT CHEST W IVCON Radiology Routine Gallbladder cancer (HCC) Expected: 07/05/2024, Expires: 07/22/2025 [facility] Comment on above: Expected: 07/05/2024, Expires: Start: 06-22-2024 End: 06-22-2024 ambulatory [facility] Comment on above: CBC/CMP OV/LAB EARLY* CBC/CMP(S) Start: 06-21-2024 End: 06-21-2024 Specialty Pharmacy 06/21/2024 8:00 AM EDT Specialty Pharmacy [facility] [address] [place] [address] [place], [place] [id number] Pharmacist, [facility] [address] [place] [address] [place] [address] Refill - Capecitabine [21DS] [facility] Comment on above: Refill - Capecitabine [21DS] Start: 06-14-2024 End: 06-14-2024 Patient encounter procedure 06/14/2024 9:30 AM EDT Appointment Radiology [address] [place] [address] 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) [E27.8] Radiology Comment on above: 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] Start: 06-08-2024 End: 06-08-2024 Patient encounter procedure 06/08/2024 10:30 AM EDT Office Visit OB/Gynecology [address] [place] [address] Taty Velazquez APRN.INSURANCE PROCESSING CLERK [address] [place] [address] Pelvic Cyst-U/S done 04/26/24 OB/Gynecology Comment on above: Pelvic Cyst-U/S done 04/26/24 Start: 06-04-2024 End: 06-04-2024 Follow-up encounter 06/04/2024 8:30 AM EST Visit (SP) Office Hematology/Oncology [address] [place] [address] Denice Orozco APRN.INSURANCE PROCESSING CLERK [address] [place] [address] follow up Hematology/Oncolo gy Comment on above: follow up Start: 06-04-2024 End: 06-04-2024 ambulatory Shaw[facility]rudencio Marquiswn [facility] Laboratory Comment on above: CBC/CMP* OV/EARLY LABS* Start: 05-31-2024 End: 05-31-2024 Specialty Pharmacy 05/31/2024 7:45 AM EST Specialty Pharmacy [facility] [address] [place] [address] Pharmacist, [facility]ty[facility] 1 [facility] [place] [address] Refill - Capecitabine [21DS] C03/10 [facility] Comment on above: Refill - Capecitabine [21DS] C03/10 Start: 05-14-2024 End: 05-14-2024 ambulatory Hematology/Oncolo gy Comment on above: f/up May. with CBC/CMP. CBC/CMP(S) f/up May. with CBC/C MP(S). Start: 05-13-2024 End: 05-13-2024 Specialty Pharmacy 05/13/2024 7:30 AM EST Specialty Pharmacy [facility] [address] [place], [place] [id number] [place], [place] [phone] [facility]ist, [facility] [address] [place] [address] [phone] Refill - Capecitabine [21DS] C02/17 --- refill req 05/10 [facility] Comment on above: Refill - Capecitabine [21DS] C02/17 --- refill req 05/10 Start: 05-10-2024 End: 05-10-2024 Specialty Pharmacy [facility] Comment on above: Refill - Capecitabine [21DS] C02 Refill - Capecitabin e [21DS] C02/17 --- SEND REMAINING CYCLE SUPPLY ---- Sent 4 days under batch plan on 04/22. Needs remaining 10 days sent. Then push refill out to 05/10 Start: 04-26-2024 End: 04-26-2024 Specialty [facility]acy [facility] Comment on above: Refill - Capecitabine [21DS] C02/17 --- SEND REMAINING CYCLE SUPPLY ---- Sent 4 days under batch plan on 04/22. Needs remaining 10 days sent. Then push refill out to 05/10 Gallbladder cancer ( HCC) [C23]; Pelvic cyst in female [N94.89]; Abnormal CT scan, pelvis [R93.5] Start: 2024 End: 2024 Follow-up encounter 2024 8:30 AM EST Visit (SP) Office Hematology/Oncology [address] [place] [address] Denice Orozco APRN.INSURANCE PROCESSING CLERK [address] [place] [address] follow up Hematology/Oncolo gy Comment on above: follow up Start: 2024 End: 2024 ambulatory 2024 8:15 AM EST Results Only Bridget Negley [facility] [address] [place] [address] CBC /CMPS (S) Bridget [facility] Comment on above: CBC /CMPS (S) Start: 04-20-2024 End: 04-20-2024 Specialty Pharmacy 04/20/2024 7:45 AM EST Specialty [facility]acy [facility] [facility] [place] [address] Pharmacist, Specialtygroup [address] [place] [address] [place] [address] Refill - Capecitabine [21DS] C004/26 [facility] Comment on above: Refill - Capecitabine [21DS] C004/26 Start: 04-19-2024 End: 05-02-2025 CT Abdomen and Pelvis W contrast IV [facility] Work Phone: Comment on above: Expected: 04/19/2024 (Approximate), Expi res: 05/02/2025 Start: 04-19-2024 End: 04-19-2024 Patient encounter procedure Cat Scan Comment on above: CT ABD / PEL / CHEST Start: 04-19-2024 End: 04-19-2024 Specialty Pharmacy 04/19/2024 7:30 AM EST Specialty Pharmacy [facility] [address] [address] Pharmacist, [facility] [address] [place] [address] [place] [address] Refill - Capecitabine [21DS] C004/26 [facility] Comment on above: Refill - Capecitabine [21DS] C004/26 Start: 04-02-2024 End: 04-02-2024 Follow-up encounter 04/02/2024 8:00 AM EST Visit (SP) Office Hematology/Oncology [address] [place] [address] Denice Orozco APRN.INSURANCE PROCESSING CLERK [address] [place] [address] follow up Hematology/Oncolo gy Comment on above: follow up Start: 03-31-2024 Advance Directive Discussion Advance Directive Discussion [facility] Start: 03-29-2024 End: 03-29-2024 Specialty Pharmacy 03/29/2024 7:45 AM EST Specialty Pharmacy [facility] [address] [place] [id number] Pharmacist, [facility] [address] [place] [address] [place] [address] Refill - Capecitabine. 21DS. C1/6 [facility] Comment on above: Refill - Capecitabine. 21DS. C1/6 Start: 03-11-2024 End: 03-11-2024 ambulatory [facility] Laboratory Comment on above: CBC/CMP 3 WK OV *CBC/CMP Start: 03-08-2024 End: 03-08-2024 Specialty Pharmacy 03/08/2024 7:30 AM EST Specialty Pharmacy [facility] [address] [place] [address] Pharmacist, [facility] [address] [place] [address] [place] [address] Refill - Capecitabine. 21DS. [facility] Comment on above: Refill - Capecitabine. 21DS. C1216 Start: 02-20-2024 End: 02-20-2024 ambulatory [facility] Laboratory Comment on above: CBC/CMP 3 WK OV *CBC/CMP Start: 02-17-2024 End: 02-17-2024 Specialty Pharmacy 02/17/2024 7:15 AM EST Specialty Pharmacy [facility] [address] [place] [address] Pharmacist, [facility] [address] [place] [address] [place] [address] Refill - Capecitabine. 21DS. Ok to send after labs? [facility] Comment on above: Refill - Capecitabine. 21DS. Ok to send after labs? Start: 01-30-2024 End: 01-30-2024 [facility] Comment on above: CBC/CMP* CBC/CMP/OV/ON XELODA * Start: 01-26-2024 End: 01-26-2024 Specialty Pharmacy 01/26/2024 9:00 AM EDT Specialty Pharmacy [facility] [address] [place], [place] [id number] [place] [address] Pharmacist, [facility] [address] [place] [address] [place] [address] Refill - Capecitabine. 21DS. Ok to send after labs? [facility] Comment on above: Refill - Capecitabine. 21DS. Ok to send after labs? Start: 12-26-2023 End: 12-26-2023 Patient encounter procedure 12/26/2023 9:50 AM EDT Office Visit [facility] [address] [place] [address] Mikala Jones MD 1 [place] [address] Drain removal [facility] Comment on above: Drain removal Start: 12-16-2023 End: 03-16-2024 [id number] GENOTYPING PANEL [facility] Work Phone: Comment on above: Expected: 12/16/2023, Expires: Start: 11-30-2023 Covid-19 Vaccine () Covid-19 Vaccine () [facility] Start: 11-30-2023 Covid-19 Vaccine (4 - 2024-25 season) Covid-19 Vaccine ( season) [facility] Start: 11-30-2023 Influenza vaccination [facility] Start: 03-31-2023 Advance Directive Discussion Advance Directive Discussion [facility] Start: 03-31-2022 ADVANCE DIRECTIVE DISCUSSION ADVANCE DIRECTIVE DISCUSSION [facility] Start: 03-31-2022 DEPRESSION ASSESSMENT DEPRESSION ASSESSMENT [facility] Start: 06-30-2021 COVID-19 VACCINE (4 - Booster for Moderna series) COVID-19 VACCINE (4 - Booster for Moderna series) [facility] Start: 04-26-2021 COVID-19 VACCINE (4 - Booster for Moderna series) COVID-19 VACCINE (4 - Booster for Moderna series) [facility] Start: 03-31-2021 ADVANCE DIRECTIVE DISCUSSION ADVANCE DIRECTIVE DISCUSSION [facility] Start: 2020 RSV Vaccine (1 - 1-dose 75+ series) RSV Vaccine (1 - 1-dose 75+ series) [facility] Start: 10-18-2017 Pneumococcal Vaccine: 50+ (2 of 2 - PCV) Pneumococcal Vaccine: 50+ (2 of 2 - PCV) [facility] Start: 10-18-2017 Pneumococcal Vaccine: 65+ (2 of 2 - PCV) Pneumococcal Vaccine: 65+ (2 of 2 - PCV) [facility] Start: 2010 BONE DENSITY BONE DENSITY [facility] Start: 2010 PNEUMOCOCCAL: 65+ (1 - PCV) PNEUMOCOCCAL: 65+ (1 - PCV) [facility] Start: 2010 PNEUMOVAX AGE 65 AND OVER WITH 5YR LOOKBACK (#1) PNEUMOVAX AGE 65 AND OVER WITH 5YR LOOKBACK (#1) [facility] Start: 2010 Screening for osteoporosis Bone Density Screening [facility] Start: 03-31-2010 Medicare Annual Wellness Visit Medicare Annual Wellness Visit [facility] Start: 2005 RSV Vaccine (1 - 1-dose 60+ series) RSV Vaccine (1 - 1-dose 60+ series) [facility] Start: 1995 SHINGRIX VACCINE (1 of 2) SHINGRIX VACCINE (1 of 2) [facility] Start: 1990 DIABETES SCREEN DIABETES SCREEN [facility] Start: 1964 Shingrix Vaccine (1 of 2) Shingrix Vaccine (1 of 2) [facility] Start: 1964 [facility] Start: 1963 ANNUAL PCP TEAM CHRONIC DISEASE VISIT ANNUAL PCP TEAM CHRONIC DISEASE VISIT [facility] Start: 1963 Anxiety Screening Anxiety Screening [facility] Start: 1963 BP CONTROLLED (<130/80) BP CONTROLLED (<130/80) [facility] Start: 1963 Depression Screening Depression Screening [facility] Start: 1963 HEPATITIS C SCREENING HEPATITIS C SCREENING [facility] Start: 1963 Hepatitis C screening Hepatitis C Screening [facility] Start: 1957 Adult depression screening assessment DEPRESSION SCREENING [facility] Start: 1956 Screening for malignant neoplasm of cervix Cervical Cancer Screening [facility] CT Abdomen and Pelvi s W contrast IV CT ABD/PEL W IVCON Radiology Routine Gallbladder cancer (HCC) 07/07/2024 9:52 AM EDT [facility] Work Phone: End: 08-13-2025 CT Abdomen and Pelvis W contrast IV CT ABD/PEL W IVCON Radiology Routine Cholangiocarcinoma (HCC) 1 Occurrences starting 07/14/2024 until 08/13/2025 [facility] Comment on above: 1 Occurrences starting 07/14/2024 until 08/13/2025 CT Abdomen and Pelvi s W contrast IV CT ABD/PEL W IVCON Radiology Routine Cholangiocarcinoma (HCC) 10/13/2024 9:34 AM EDT [facility] End: 05-02-2025 CT Chest W contrast IV CT CHEST W IVCON Radiology Routine Gallbladder cancer (HCC) 1 Occurrences starting 04/02/2024 until 05/02/2025 [facility] Comment on above: 1 Occurrences starting 04/02/2024 until 05/02/2025 CT Chest W contrast IV CT CHEST W IVCON Radiology Routine Gallbladder cancer (HCC) 04/19/2024 11:01 AM EST [facility] CT Chest W contrast IV CT CHEST W IVCON Radiology Routine Gallbladder cancer (HCC) 07/07/2024 9:52 AM EDT [facility] End: 08-13-2025 CT Chest W contrast IV CT CHEST W IVCON Radiology Routine Cholangiocarcinoma (HCC) 1 Occurrences starting 07/14/2024 until 08/13/2025 [facility] Work Phone: Comment on above: 1 Occurrences starting 07/14/2024 until 08/13/2025 CT Chest W contrast IV CT CHEST W IVCON Radiology Routine Cholangiocarcinoma (HCC) 10/13/2024 9:34 AM EDT [facility] Work Phone: End: 10-26-2025 ERCP ERCP Endoscopy Routine Choledocholithiasis 1 Occurrences starting 10/26/2024 until 10/26/2025 [facility] Work Phone: Comment on above: 1 Occurrences starting 10/26/2024 until 10/26/2025 End: 07-08-2025 MR Pelvis WO and W contrast IV MRI FEMALE PELVIS WO/W IVCON Radiology Routine 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) 1 Occurrences starting 06/08/2024 until 07/08/2025 [facility] Work Phone: Comment on above: 1 Occurrences starting 06/08/2024 until 07/08/2025 MR Pelvis WO and W contrast IV MRI FEMALE PELVIS WO/W IVCON Radiology Routine 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) 06/14/2024 11:07 AM EDT [facility] Work Phone: End: 05-23-2025 US Pelvis limited US FEMALE PELVIS TRANSABD LTD Radiology Routine Gallbladder cancer (HCC) Pelvic cyst in female Abnormal CT scan, pelvis 1 Occurrences starting 2024 until 05/23/2025 [facility] Work Phone: Comment on above: 1 Occurrences starting 2024 until 05/23/2025 US Pelvis limited US FEMALE PELV IS TRANSABD LTD Radiology Routine Gallbladder cancer (HCC) Pelvic cyst in female Abnormal CT scan, pelvis 04/26/2024 11:32 AM [facility] Work Phone: End: 05-23-2025 US Pelvis transvaginal US FEMALE PELVIS TRANSVAG Radiology Routine Gallbladder cancer (HCC) Pelvic cyst in female Abnormal CT scan, pelvis 1 Occurrences starting 2024 until 05/23/2025 [facility] Comment on above: 1 Occurrences starting 2024 until 05/23/2025 US Pelvis transvaginal US FEMALE PELVIS TRANSVAG Radiology Routine Gallbladder cancer (HCC) Pelvic cyst in female Abnormal CT scan, pelvis 04/26/2024 11:32 AM EST [facility] Immunizations Immunization Date Immunization Notes Care Provider Mireille peck 01-30-2024 influenza virus vacc ine, unspecified formulation Tin Masci DO Work Phone: [facility] 12-31-2022 influenza (aIIV4) vaccine, age 65+ yr, quadrivalent, PF (FLUAD QUAD) Tin Masci DO Work Phone: [facility] 12-31-2022 influenza virus vacc ine, unspecified formulation Mikala Jones MD Work Phone: [facility] 01-10-2022 influenza, injectabl e, quadrivalent, preservative free Tin Masci DO Work Phone: [facility] 01-02-2021 influenza, injectabl e, quadrivalent, preservative free Tin Masci DO Work Phone: [facility] 12-30-2019 influenza, injectabl e, quadrivalent, preservative free Tin Masci DO Work Phone: [facility] 12-30-2018 influenza, injectabl e, quadrivalent, preservative free Tin Masci DO Work Phone: [facility] 12-30-2017 influenza, injectabl e, quadrivalent, preservative free Tin Masci DO Work Phone: [facility] 01-01-2017 influenza, injectabl e, quadrivalent, preservative free Tin Masci DO Work Phone: [facility] 10-18-2016 pneumococcal polysaccharide vaccine, 23 valent Tin Masci DO Work Phone: [facility] 01-10-2016 influenza, injectabl e, quadrivalent, contains preservative Tin Masci DO Work Phone: [facility] 01-24-2009 influenza virus vacc ine, whole virus Tin Masci DO Work Phone: [facility] Payers Date Payer Category Payer Self-pay 2016 Medicare LYNN [employer]OZCOS [employer]E BENEFIT FUND LYNN HUERTA SUPPLEMENT [id number] 2016-Present [phone] [address] [place] [address] Medicare [id number] 2010 Medicare MEDICARE MEDICAR E A AND B [id number] 2010-Present [phone] [address] [address] [place] [address] Medicare [id number] 2010 Medicare [id number] 2001 Medicare [id number] 2001 Private Health Insurance [id number] 2001 Unknown [id number] 1945 Unknown [id number] 1945 Unknown [id number] 1945 Unknown [id number] 1945 Unknown [id number] .[id number] Medicare [id number] Unknown [id number] Unknown [id number] Unknown [id number] .462 Unknown [id number] .462 Unknown [id number] .462 Unknown [id number] .462 Unknown [id number] .462 Unknown [id number] [id number] .462 Unknown [id number] .462 Unknown [id number] .462 Unknown [id number] .462 Social History Date Type Detail Facility Start: 08-07-2021 End: 11-02-2024 Tobacco smoking status NHIS Never smoked tobacco [facility] Start: 08-07-2021 End: 11-02-2024 Tobacco use and exposure Smokeless tobacco non-user [facility] Start: 1945 Sex Assigned At Not on file [facility] Start: 07-28-2021 End: 09-07-2021 Exposure to SARS-CoV-2 (event) Not sure [facility] Start: 11-20-2023 End: 12-26-2023 History of Social function [facility] Start: 11-20-2023 End: 12-26-2023 [facility] Utilities [facility] Has the [employer], or [employer] threatened to shut off services in your home in past 12Mo No [facility] (I/We) worried whewanda er (my/our) food would run out before (I/we) got money to buy more. Never true [facility] Start: 08-01-2021 In the past 12 months, has lack of transportation kept you from medical appointments or from getting medications? No [facility] Start: 01-05-2024 End: 11-09-2024 Alcoholic beverage intake Lifetime non-drinker (finding) [facility] Start: 11-27-2017 Non-smoker Non-smoker [facility] Start: 06-16-2024 Sex Female (finding) [facility] Start: 1945 Sex Assigned At Female [facility] Start: 10-21-2024 Sexual orientation Heterosexual (finding) [facility] How often to you hav e a drink containing alcohol? Never [facility] Medical Equipment Procedure Code Equipment Code Equipment Origin al Text Equipment Identifier Dates Lens Acrysof Iq +16 Diopter 0 D Biconvex Acrylic 13mm Iol 1 Piece Foldable - [id number] Start: 09-07-2021 Stent Advanix Naviflex 10fr [place] Thin Wall Plastic 9cm Biliary - [id number] Start: 11-25-2023 Stent Advanix Naviflex 5fr Straight Plastic 3cm Pancreatic Kit Rapid - [id number] Start: 11-25-2023 Stent Advanix Naviflex 10fr [place] Thin Wall Plastic 12cm Biliary - [id number] Start: 11-09-2024 Functional Status Date Assessment Result Facility 11-09-2024 Total score [AUDIT-C] 0 11/10/19 25 8:35 AM EDBarbra Varela RN [facility] 12-06-2023 Are you deaf, or do you have serious difficulty hearing No 12/06/2023 10:29 AM Tere Taylor RN No [facility] 12-06-2023 Are you blind, or do you have serious difficulty seeing, even when wearing glasses No 12/06/2023 10:29 AM Tere Taylor RN No [facility] 12-06-2023 Do you have serious difficulty walking or climbing stairs No 12/06/2023 10:29 AM Tere Taylor RN No [facility] 12-06-2023 Do you have difficul ty dressing or bathing No 12/06/2023 10:29 AM Tere Taylor RN No [facility] 12-06-2023 Because of a physica l, mental, or emotional condition, do you have difficulty doing errands alone such as visiting a physician's office or shopping No 12/06/2023 10:29 AM Tere Taylor RN No [facility] Mental Status Date Assessment Result Facility 12-06-2023 Because of a physica l, mental, or emotional condition, do you have serious difficulty concentrating, remembering, or making decisions No 12/06/2023 10:29 AM EDT Tere Webber RN No [facility] Clinical Notes 08-07-2021 to 11-09-2024 Suly Montes APRN.CNP - 11/09/2024 9:30 AM EDTTelephone Encounter - Aga Herrera - 10/26/2024 9:25 AM EDTTelephone Encounter - Aga Herrera - 10/26/2024 9:25 AM EDTPatient Instructions Note Date & Type Note Facility 11-09-2024 Note [facility] 11-09-2024 History of Present illness Narrative H&P completed 11/02/24 in PAT by Maria G Gomes APRN.CNP. documented in this encounter [facility] 11-09-2024 Note HNO ID: [id number] Author: SULY MONTES APRN.CNP Service: Anesthesiology Author Type: Nurse Practitioner Type: Progress Notes Filed: 11/09/2024 08:17 Note Text: HANDP completed 11/02/24 in PAT by Maria G Gomes APRN.CNP. [facility] 10-26-2024 Telephone encounter Note Dolores, please schedule an ERCP for biliary decompression with goal of placing stents in the right liver lesli. Patient has history of gallbladder cancer invading liver and duodenum who underwent vesna, segment IVb/V liver resection. Called pt per message with Dr Jose, Dr Jones and Dr Santamaria. Are you on any blood thinners? no Are you on any diabetic medications? no Do you have any allergies? None Pt is scheduled for 11/09/24 [facility] 10-26-2024 Miscellaneous Notes Dolores, please schedule an ERCP for biliary decompression with goal of placing stents in the right liver lesli. Patient has history of gallbladder cancer invading liver and duodenum who underwent vesna, segment IVb/V liver resection. Called pt per message with Dr Jose, Dr Jones and Dr Santamaria. Are you on any blood thinners? no Are you on any diabetic medications? no Do you have any allergies? None Pt is scheduled for 11/09/24 documented in this encounter [facility] 10-22-2024 Telephone encounter Note Patient's scheduled labs for Friday10/25/2024. He is aware of all information. Serenity Kong LPN [facility] 10-22-2024 Miscellaneous Notes Patient's scheduled labs for Friday10/25/2024. He is aware of all information. Serenity Kong LPN Please ask her to come for lab work CBC/CMP. There is a mass in liver that is blocking some of the bile ducts in the liver. I've reached out to Dr. Jones (her surgeon) on advice on approach--IR for biopsy/stent or GI for ERCP. Will update her once I hear from Dr. Jones. In the meantime, labs that were to be done at postponed OV this week would be helpful. Tin Jose DO CT chest still in-process. Serenity Kong LPN Today's lab/OV cancelled d/t CT's still in process. Dr. Jose will call patient with results but patient still needs labs; she did not want to come in today just for labs. Serenity Kong LPN documented in this encounter [facility] 10-22-2024 Telephone encounter Note Please ask her to come for lab work CBC/CMP. There is a mass in liver that is blocking some of the bile ducts in the liver. I've reached out to Dr. Jones (her surgeon) on advice on approach--IR for biopsy/stent or GI for ERCP. Will update her once I hear from Dr. Jones. In the meantime, labs that were to be done at postponed OV this week would be helpful. Tin Jose DO [facility] 10-21-[address] chest still in-process. Serenity Kong LPN [facility] 10-20-2024 Telephone encounter Note Today's lab/OV cancelled d/t CT's still in process. Dr. Jose will call patient with results but patient still needs labs; she did not want to come in today just for labs. Serenity Kong LPN [facility] 10-13-2024 History of Present illness Narrative Radiology Service Progress Note DATE OF SERVICE: October 13, 2024 TIME: 2:55 PM PATIENT IDENTITY VERIFICATION COMPLETED USING TWO (2) STANDARD IDENTIFIERS: Name and Date of confirmed by patient verbally. FALL SCREENING: Has the patient had 2 falls in the last year or 1 fall with injury or currently using an Ambulatory Assistive Device (Walker, Cane, Wheelchair, Crutches, etc.)? No PATIENT GENDER DATA: Assigned female at . status: : No status: NO. PATIENT RELEVANT IMPLANT DATA REVIEWED: Yes PATIENT PRESENTS WITH AN IMPLANTABLE OR ATTACHED STARS COORDINATOR: No ALLERGIES: Reviewed and unchanged CONTRAST ALLERGY: NO. EXAM: CT -CONTRAST INDUCED NEPHROPATHY RISK FACTORS: Patient age > 60 years CREATININE: Creatinine Date Value Ref Range Status 10/13/2024 0.72 0.58 - 0.96 mg/dL Final 07/14/2024 0.73 0.58 - 0.96 mg/dL Final 06/22/2024 0.76 0.58 - 0.96 mg/dL Final Estimated Glomerular Filtration Rate Date Value Ref Range Status 10/13/2024 85 >=60 mL/min/1.73m Final Comment: Estimated Glomerular Filtration Rate (eGFR) is calculated using the 2020 CKD-EPI creatinine equation. This equation utilizes serum creatinine, sex, and age as parameters. The creatinine assay has traceable calibration to isotope dilution-mass spectrometry. Refer to KDIGO guidelines for clinical interpretation. In patients with unstable renal function, e.g. those with acute kidney injury, the eGFR may not accurately reflect actual GFR. P.O.C.T. RESULTS: POC done: Yes, See Lab Tab October 13, 2024 TREATMENT: N/A PERIPHERAL IV DATA: Ambulatory: A peripheral IV was started in the Left antecubital site with a Angio cath: 22 gauge. RADIOLOGY DEPARTMENT: CT; Exam(s) Completed: Chest Abdomen Pelvis SIGNATURE: RT Tiago(R) PATIENT NAME: Marie Blair DATE: October 13, 2024 TIME: 2:55 PM documented in this encounter [facility] 10-13-2024 Note [facility] 10-12-2024 Telephone encounter Note Done. Denice Orozco APRN.CNP [facility] 10-12-2024 Miscellaneous Notes Done. Denice Orozco APRN.INSURANCE PROCESSING CLERK Please place order for creatinine order for pt , pt appt on 10/13/[address] documented in this encounter [facility] 10-11-2024 Telephone encounter Note Please place order for creatinine order for pt , pt appt on 10/13/[address] [facility] 07-14-2024 Note [facility] 07-14-2024 History of Present illness Narrative Oncologic problem(s): 1) Cholangiocarcinoma. HPI: The patient is a 79-year-old female with a past medical history as outlined below. Began having dull, continuous RUQ pain about 2 months prior to presentation. Had an ultrasound on 11/07/2023. Liver was noted to be 14.3 cm in length. Homogeneous echotexture without focal lesion. No intrahepatic ductal dilation. CBD: 7 mm in diameter. Gallbladder demonstrated shadowing gallstones with heterogeneous appearance. Gallbladder wall was 5 mm thick. No pericholecystic fluid. Sonographic Chin sign negative. Visualized proximal portion of the pancreas is unremarkable. CT scan on 11/12/2023. Findings were suspicious for acute cholecystitis. The gallbladder was noted to be contracted with multiple gallstones and wall thickening and stranding in the fat surrounding the fundus of the gallbladder worrisome for acute cholecystitis. There was mild intrahepatic biliary ductal dilation. She is admitted to [facility] [facility] on 11[facility]. Started on antibiotics. Transferred to [facility]. Underwent MRCP. 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 Transferred to [facility] On 11/19. ERCP on 11/20. Failed attempt to cannulate the CBD. Repeat ERCP with stent placed on 11/23. Underwent radical cholecystectomy with en bloc partial duodenectomy for gallbladder adenocarcinoma 11/26/2023 with postop biliary leak from cystic duct stump managed with a drain. Pathology: FINAL DIAGNOSIS A. Small bowel, duodenal margin, biopsy: - Benign duodenal tissues. B. Soft tissue, ventral fat pad, excision: - Benign fibroadipose tissue. C. Lymph node, periportal, excision: - Metastatic carcinoma in one lymph node (1/1). D. Lymph node, hepatic artery, excision: - One benign lymph node (0/1). E. Cystic duct margin, excision: - Negative for malignancy. F. Gallbladder, liver (segments 4b-5) and duodenum (2nd portion), en bloc resection: - Poorly differentiated adenocarcinoma of gallbladder, arising in a background of high-grade dysplasia (see comment). - Tumor directly invades through gallbladder wall into hepatic parenchyma and duodenal wall as well as pericholecystic fibroadipose with microscopic features of pericholecystic abscess. - Focal serosal involvement is identified. - Margins negative for high-grade dysplasia and malignancy. - Positive for lymphovascular invasion. - Non-neoplastic hepatic parenchyma with no significant pathologic changes. Diagnosis Comment Block for additional Biomarkers/Molecular studies F6 Synoptic Report GALLBLADDER 8th Edition - Protocol posted: 09/27/2020GALLBLADDER: RESECTION/CHOLECYSTECTOMY - All Specimens SPECIMEN Procedure En bloc resection of gallbladder, liver segments 4b-5 and second portion of duodenum TUMOR Tumor Site Fundus Body Histologic Type Adenocarcinoma, biliary type Histologic Grade G3, poorly differentiated Tumor Size Greatest Dimension (Centimeters): 4.8 cm Additional Dimension (Centimeters) 3.4 cm 2.3 cm Tumor Extent Directly invades other adjacent organ(s) or structure(s) Duodenum Lymphovascular Invasion Present Perineural Invasion Not identified MARGINS Margin Status for Invasive Carcinoma All margins negative for invasive carcinoma Distance from Invasive Carcinoma to Cystic Duct Margin 1.3 cm Distance from Invasive Carcinoma to Liver Parenchymal Margin 1.5 cm Margin Status for Intraepithelial Neoplasia All margins negative for high-grade intraepithelial neoplasia Margin Comment Invasive adenocarcinoma is 0.2 cm away from the duodenal resection margin. REGIONAL LYMPH NODES Regional Lymph Node Status Tumor present in regional lymph node(s) Number of Lymph Nodes with Tumor 1 Number of Lymph Nodes Examined 2 PATHOLOGIC STAGE CLASSIFICATION (pTNM, AJCC 8th Edition) Reporting of pT, pN, and (when applicable) pM categories is based on information available to the pathologist at the time the report is issued. As per the AJCC (Chapter 1, 8th Ed.) it is the managing physician s responsibility to establish the final pathologic stage based upon all pertinent information, including but potentially not limited to this pathology report. pT Category pT3 pN Category pN1 ADDITIONAL FINDINGS Additional Findings Dysplasia / adenoma Cholelithiasis Initial consultation: ~15 lb weight loss overall. Still has drain. Eating small amounts. No nausea or reflux. Gas type pain in RUQ. Having dark, formed stools. Most of the day in a chair right now. TIA 20+ years ago. Temporary lateral visual field cut left eye. Initially treated with Plavix. On low dose ASA now. Presents for ongoing oncologic management. Interim history: Completed last cycle capecitabine 07/11. Tolerated very well. Mild palmar rash. No GI symptoms. No recent LRI symptoms. PAST MEDICAL HISTORY Diagnosis Date Cataract (lens) fragments in eye following cataract surgery, left eye 08/30/2021 Essential hypertension Gallbladder cancer (HCC) 12/16/2023 History of TIA (transient ischemic attack) 2010 Hypercholesteremia PAST SURGICAL HISTORY Procedure Laterality Date APPENDECTOMY HX PAST SURGICAL HISTORY OF Skin cancer removed from forehead REMOVAL GALLBLADDER 11/26/2023 REMV CATARACT EXTRACAP,INSERT LENS Left 08/30/2021 SN60WF +16.5 D REMV CATARACT EXTRACAP,INSERT LENS Right 09/07/2021 SN60WF 16.0D Current Outpatient Medications Medication Sig ondansetron (ZOFRAN) 8 mg tablet Take 1 tablet by mouth every 8 hours as needed. acetaminophen (TYLENOL) 325 mg tablet Take 2 tablets by mouth every 6 hours as needed for pain. aspirin, enteric coated (ASPIRIN, ENTERIC COATED) 81 mg EC tablet Take 81 mg by mouth once daily. lisinopril (ZESTRIL, PRINIVIL) 10 mg tablet Take 10 mg by mouth once daily. iv contrast (will be provided with radiology test) CT Chest W -Inject, intravenously, once for 1 dose.No IV access, insert saline lock prior to the beginning of sedation, infusion, injection of imaging exam. Discontinue saline lock post exam. If Pt. has a central line or IVAD, may access for administration according to line specific nursing protocol. Once exam is complete flush line and de-access according to line specific nursing protocol in the CT contrast administration guidelines link. iv contrast (will be provided with radiology test) CT ABD/PEL -Inject, intravenously, once for 1 dose.No IV access, insert saline lock prior to the beginning of sedation, infusion, injection of imaging exam. Discontinue saline lock post exam. If Pt. has a central line or IVAD, may access for administration according to line specific nursing protocol. Once exam is complete flush line and de-access according to line specific nursing protocol in the CT contrast administration guidelines link. enteric contrast (will be provided with radiology test) For CT ABD/PEL W IVCON Routine order Administer, As Directed One Time Only, via Oral, Rectal, both Oral and Rectal, Enteric Tube, Stoma or Indwelling Catheter, Enteric Contrast as designated per enteric contrast guidelines Surgical Lubricant Jelly gel For MRI Female Pelvis, MRI department to provide. Administer intra-vaginal Surgilube immediately prior the MRI procedure (total amount to patient toleranace). No current facility-administered medications for this visit. ALLERGIES No Known Allergies FAMILY HISTORY Problem Relation Age of Onset Stroke Mother Heart Father Heart Sister Heart Sister Heart Brother No Ocular Disease No Family History Social History Tobacco Use Smoking status: Never Smokeless tobacco: Never Vaping Use Vaping status: Never Used Substance Use Topics Alcohol use: Never Drug use: Never REVIEW OF SYSTEMS: Constitutional: No episodes of fever and night sweats. Neuro: No CASAS, vertigo, dizziness and imbalance. No symptoms of neuropathy. HEENT: No recent change in voice, vision or hearing. Resp: No shortness of breath at rest. CVS: Denies exertional chest pain, PND, orthopnea and LE edema. GI: See above. : Denies dysuria or gross hematuria. Endo: Denies hot flashes. Denies polyuria and polydipsia. Denies heat and cold intolerance. Musculoskeletal: Denies bone, back, joint and muscular pain. Derm: See above. Heme: Denies unusual bleeding and unexplained bruising. Psych: Normal mood. PHYSICAL EXAM: Vitals: Blood pressure 150/75, pulse 78, temperature 36.4 C (97.5 F), temperature source Temporal, weight 74.2 kg (163 lb 8 oz), SpO2 99%. Frail-appearing and in no acute distress. EYES: Sclerae are anicteric bilaterally. ENT: Oral mucosa is unremarkable. There is no sign of thrush or mucositis. LYMPHATIC: There is no palpable cervical\ or supraclavicular adenopathy. RESPIRATORY: Inspiratory breath sounds are of normal intensity in all [place]. Mild coarse crackles b/l bases. CARDIOVASCULAR: Rhythm is regular. ABDOMEN: The abdomen is nondistended. No mass or tenderness. SKIN: No jaundice. 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 - Has now completed 6 months of adjuvant capecitabine. - Personally reviewed chest CT images. New small nodule lateral left lung. Otherwise stable. -Discussed plan for repeat CT chest, abdomen pelvis in 3 months. If DIANA then every 6 months for up to 2 years then annually up to 5 years. - Discussed follow-up with gynecology. Plan: - CBC, CMP CT chest, abdomen pelvis followed by office visit in about 3 months. Portions of this documentation were copied and pasted from my previous office visit note dated 12/16/2023 in order to provide a cohesive continuity of the history. The note has been reviewed and edited and updated as necessary. I spent a total of 30 minutes on the date of the service which included preparing to see the patient, [id number] patient care, completing clinical documentation, obtaining and/or reviewing separately obtained history, performing a medically appropriate examination, counseling and educating the patient/family/caregiver, ordering medications, tests, or procedures, communicating with other HCPs (not separately reported), and communicating results to the patient/family/caregiver. Tin Jose DO documented in this encounter [facility] 07-12-2024 Note [facility] 07-07-2024 History of Present illness Narrative Radiology Service Progress Note DATE OF SERVICE: July 07, 2024 TIME: 12:05 PM PATIENT IDENTITY VERIFICATION COMPLETED USING TWO (2) STANDARD IDENTIFIERS: Name and Date of confirmed by patient verbally. FALL SCREENING: Has the patient had 2 falls in the last year or 1 fall with injury or currently using an Ambulatory Assistive Device (Walker, Cane, Wheelchair, Crutches, etc.)? No PATIENT GENDER DATA: Assigned female at . status: : No status: NO. PATIENT RELEVANT IMPLANT DATA REVIEWED: Yes PATIENT PRESENTS WITH AN IMPLANTABLE OR ATTACHED STARS COORDINATOR: No ALLERGIES: Reviewed and unchanged CONTRAST ALLERGY: NO. EXAM: CT -CONTRAST INDUCED NEPHROPATHY RISK FACTORS: Patient age > 60 years CREATININE: Creatinine Date Value Ref Range Status 06/22/2024 0.76 0.58 - 0.96 mg/dL Final 06/04/2024 0.75 0.58 - 0.96 mg/dL Final 05/14/2024 0.85 0.58 - 0.96 mg/dL Final Estimated Glomerular Filtration Rate Date Value Ref Range Status 06/22/2024 80 >=60 mL/min/1.73m Final Comment: Estimated Glomerular Filtration Rate (eGFR) is calculated using the 2020 CKD-EPI creatinine equation. This equation utilizes serum creatinine, sex, and age as parameters. The creatinine assay has traceable calibration to isotope dilution-mass spectrometry. Refer to KDIGO guidelines for clinical interpretation. In patients with unstable renal function, e.g. those with acute kidney injury, the eGFR may not accurately reflect actual GFR. P.O.C.T. RESULTS: POC done: Yes, See Lab Tab July 07, 2024 TREATMENT: N/A PERIPHERAL IV DATA: Ambulatory: A peripheral IV was started in the Left antecubital site with a Angio cath: 22 gauge. RADIOLOGY DEPARTMENT: CT; Exam(s) Completed: Chest Abdomen Pelvis SIGNATURE: RT Tiago(R) PATIENT NAME: Marie Blair DATE: July 07, 2024 TIME: 12:05 PM documented in this encounter [facility] 07-07-2024 Note [facility] 06-28-2024 Telephone encounter Note Please let patient know that her CA125 marker is within normal limits. I would like her to follow-up with [facility] for large cyst removal. Order filed for consult.Taty Velazquez APRN.INSURANCE PROCESSING CLERK [facility] 06-28-2024 Miscellaneous Notes Please let patient know that her CA125 marker is within normal limits. I would like her to follow-up with [facility] for large cyst removal. Order filed for consult.Taty Velazquez APRN.CNP documented in this encounter [facility] 06-22-2024 Note [facility] 06-22-2024 History of Present illness Narrative Chief Complaint Patient presents with: Established Patient HPI: Marie Blair is a 79 year old female who presents here today for evaluation for next cycle of xeloda. Per Dr. Jose's previous note: H/o Began having dull, continuous RUQ pain about 2 months ago. Had an ultrasound on 11/07/2023. Liver was noted to be 14.3 cm in length. Homogeneous echotexture without focal lesion. No intrahepatic ductal dilation. CBD: 7 mm in diameter. Gallbladder demonstrated shadowing gallstones with heterogeneous appearance. Gallbladder wall was 5 mm thick. No pericholecystic fluid. Sonographic Chin sign negative. Visualized proximal portion of the pancreas is unremarkable. CT scan on 11/12/2023. Findings were suspicious for acute cholecystitis. The gallbladder was noted to be contracted with multiple gallstones and wall thickening and stranding in the fat surrounding the fundus of the gallbladder worrisome for acute cholecystitis. There was mild intrahepatic biliary ductal dilation. She is admitted to [facility] on 11/18/2023. Started on antibiotics. Transferred to [facility]. Underwent MRCP. 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 Transferred to [facility] On 11/19. ERCP on 11/20. Failed attempt to cannulate the CBD. Repeat ERCP with stent placed on 11/23. Underwent radical cholecystectomy with en bloc partial duodenectomy for gallbladder adenocarcinoma 11/26/2023 with postop biliary leak from cystic duct stump managed with a drain. Pathology: FINAL DIAGNOSIS A. Small bowel, duodenal margin, biopsy: - Benign duodenal tissues. B. Soft tissue, ventral fat pad, excision: - Benign fibroadipose tissue. C. Lymph node, periportal, excision: - Metastatic carcinoma in one lymph node (1/1). D. Lymph node, hepatic artery, excision: - One benign lymph node (0/1). E. Cystic duct margin, excision: - Negative for malignancy. F. Gallbladder, liver (segments 4b-5) and duodenum (2nd portion), en bloc resection: - Poorly differentiated adenocarcinoma of gallbladder, arising in a background of high-grade dysplasia (see comment). - Tumor directly invades through gallbladder wall into hepatic parenchyma and duodenal wall as well as pericholecystic fibroadipose with microscopic features of pericholecystic abscess. - Focal serosal involvement is identified. - Margins negative for high-grade dysplasia and malignancy. - Positive for lymphovascular invasion. - Non-neoplastic hepatic parenchyma with no significant pathologic changes. Diagnosis Comment Block for additional Biomarkers/Molecular studies F6 Synoptic Report GALLBLADDER 8th Edition - Protocol posted: 09/27/2020GALLBLADDER: RESECTION/CHOLECYSTECTOMY - All Specimens SPECIMEN Procedure En bloc resection of gallbladder, liver segments 4b-5 and second portion of duodenum TUMOR Tumor Site Fundus Body Histologic Type Adenocarcinoma, biliary type Histologic Grade G3, poorly differentiated Tumor Size Greatest Dimension (Centimeters): 4.8 cm Additional Dimension (Centimeters) 3.4 cm 2.3 cm Tumor Extent Directly invades other adjacent organ(s) or structure(s) Duodenum Lymphovascular Invasion Present Perineural Invasion Not identified MARGINS Margin Status for Invasive Carcinoma All margins negative for invasive carcinoma Distance from Invasive Carcinoma to Cystic Duct Margin 1.3 cm Distance from Invasive Carcinoma to Liver Parenchymal Margin 1.5 cm Margin Status for Intraepithelial Neoplasia All margins negative for high-grade intraepithelial neoplasia Margin Comment Invasive adenocarcinoma is 0.2 cm away from the duodenal resection margin. REGIONAL LYMPH NODES Regional Lymph Node Status Tumor present in regional lymph node(s) Number of Lymph Nodes with Tumor 1 Number of Lymph Nodes Examined 2 PATHOLOGIC STAGE CLASSIFICATION (pTNM, AJCC 8th Edition) Reporting of pT, pN, and (when applicable) pM categories is based on information available to the pathologist at the time the report is issued. As per the AJCC (Chapter 1, 8th Ed.) it is the managing physician s responsibility to establish the final pathologic stage based upon all pertinent information, including but potentially not limited to this pathology report. pT Category pT3 pN Category pN1 ADDITIONAL FINDINGS Additional Findings Dysplasia / adenoma Cholelithiasis ~15 lb weight loss overall. Still has drain. Eating small amounts. No nausea or reflux. Gas type pain in RUQ. Having dark, formed stools. Most of the day in a chair right now. TIA 20+ years ago. Temporary lateral visual field cut left eye. Initially treated with Plavix. On low dose ASA now. Current therapy:Xeloda Began 01/12/24. Pt. here today with spouse. Pt. is in her off week. She plans to start her next cycle on Friday. No new concerns today. Appetite:Ok Wt. up 2# since last visit. Energy level:Ok. Denies fevers or recent illness. Mouth:denies sores Resp:denies cough or sob Cardiac:denies chest pain/palpitations GI:denies abd pain, n/v, moving bowels regularly :denies dysuria/hematuria Extrem:denies pain Neuro:denies symptoms of neuropathy Skin:denies rashes, +dryness to hands/feet Heme:denies bleeding The ROS is otherwise negative. Past medical history, appointments, medications, allergies reviewed. No changes. EXAM: BP 137/78 Pulse 76 Temp 36.5 C (97.7 F) (Temporal) Wt 71.9 kg (158 lb 8.2 oz) SpO2 94% BMI 24.46 kg/m APPEARANCE Well appearing, alert, in no acute distress, well-hydrated, well nourished. HEART RRR with normal S1 and S2, no murmurs LUNG clear to auscultation LYMPH NODES No cervical lymphadenopathy, No supraclavicular lymphadenopathy, and No axillary lymphadenopathy. ABDOMEN bowel sounds normoactive, soft, non-tender EXTREMITIES No edema NEURO Awake, alert and oriented x 3, Normal gait, and No involuntary motions. SKIN +dry palms, no cracking LABS: Latest Ref Rng 05/14/2024 06/04/2024 06/22/2024 WBC 3.70 - 11.00 k/uL 5.83 5.69 5.19 RBC 3.90 - 5.20 m/uL 3.18 (L) 3.27 (L) 3.41 (L) Hemoglobin 11.5 - 15.5 g/dL 10.7 (L) 11.4 (L) 11.8 Hematocrit 36.0 - 46.0 % 33.0 (L) 34.3 (L) 36.1 MCV 80.0 - 100.0 fL 103.8 (H) 104.9 (H) 105.9 (H) MCH 26.0 - 34.0 pg 33.6 34.9 (H) 34.6 (H) MCHC 30.5 - 36.0 g/dL 32.4 33.2 32.7 RDW-CV 11.5 - 15.0 % 19.4 (H) 17.3 (H) 16.7 (H) Platelet Count 150 - 400 k/uL 230 243 227 MPV 9.0 - 12.7 fL 9.2 9.3 9.1 Neut% % 49.1 49.4 46.8 Abs Neut (ANC) 1.45 - 7.50 k/uL 2.86 2.82 2.43 Lymph% % 37.7 36.6 38.9 Abs Lymph 1.00 - 4.00 k/uL 2.20 2.08 2.02 Barbour% % 10.5 10.7 10.4 Abs Barbour <0.87 k/uL 0.61 0.61 0.54 Eosin% % 2.2 2.5 3.3 Abs Eosin <0.46 k/uL 0.13 0.14 0.17 Baso% % 0.3 0.4 0.4 Abs Baso <0.11 k/uL <0.03 <0.03 <0.03 Immature Gran % % 0.2 0.4 0.2 IMMATURE GRANS (ABS) <0.10 k/uL <0.03 <0.03 <0.03 NRBC /100 WBC 0.0 0.0 0.0 Absolute nRBC <0.01 k/uL <0.01 <0.01 <0.01 DTYPE Auto Auto Auto CMP: Pending ASSESSMENT/PLAN: 1. Gallbladder cancer (HCC) - ICD9: 156.0, ICD10: C23 Per Dr. 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 -I discussed the pathology with the patient and her . I also discussed the natural history, treated course, and prognosis of the disease as well as the rationale for adjuvant therapy. -Recommended a standard adjuvant course of capecitabine. -I discussed the rationale (based on the BILCAP trial), logistics, potential risks (including but not limited to fatigue, cytopenias, mucositis, diarrhea, nausea and vomiting, hand-foot skin syndrome, infections and the small potential for as a consequence of severe toxicity/complications of therapy), benefits and alternatives, as well as the personnel involved in the administration of capecitabine. I answered her questions in detail and she verbalized understanding and agreed with the recommended therapy. Please see the electronic consent document for details of doses and schedule. Plan: -Labs today including CBC, chemistry panel, hematinics and DPYD/UGT1A1 genotyping panel. -Plan to begin therapy in a few weeks once drain out and she's had some more time for recovery. -Aim for 6 months of treatment. -CTs in about 3 months. - Overall tolerating xeloda well compared to first cycle-no n/v/constipation/diarrhea. - Reviewed CBC with pt. and spouse. - CMP pending. - Continue current dose of xeloda. - Goal 6 months of treatment pending tolerance. Will complete therapy in June. - Continue current medications. - Follow up with [facility] as scheduled. CA125 pending. - Proceed with next cycle of xeloda on Friday. - CT's the week prior to seeing Dr. Jose. - Follow up with Dr. Jose on July 14 @9:50 with CBC/CMP. - Pt. aware to call office with any questions/concerns. The patient indicates understanding of these issues and agrees with the plan. All documentation from previous visit of 06/04/24-Dr. Jose/myself was copied and pasted, documentation has been reviewed and edited as necessary for today's visit. Denice Orozco APRN.DANIELLA documented in this encounter [facility] 06-21-2024 History of Present illness Narrative [facility] Refill Assessment Medication(s): Capecitabine Patient's current medication list and adherence status to current therapy were reviewed by [facility] clinical pharmacist to identify any new drug interactions or non-compliance to therapy. Therapy continues to be appropriate for disease, patient response, and medical condition. Verification of therapeutic benefit and effectiveness with current therapy was completed. Adverse events, barriers in adherence, and side effects were assessed and addressed if applicable. Will proceed with refill with no changes in therapy - patient progressing towards achieving therapeutic goals based on medication-specific laboratory parameters, disease state markers and outcomes. Office/provider notes have been reviewed prior to dispensing the medication. 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 Patient confirmed: Yes Med/dose confirmed: Yes Supplies needed: No supplies needed Missed doses: No Estimated days supply on hand: 0 Next cycle/dose due: 06/28/24 Copay amount: 9.92 Copay form of payment: Credit card on file Payment confirmed: Yes Delivery method: FedEx Signature required: No Delivery address: [address] [place] [address] Delivery date: 06/23/24 Questions or concerns for the pharmacist?: No Did you have any side effects believed to be related to this medication, that resulted in hospitalization?: No Current Outpatient Medications on File Prior to Visit Medication Sig Surgical Lubricant Jelly gel For MRI Female Pelvis, MRI department to provide. Administer intra-vaginal Surgilube immediately prior the MRI procedure (total amount to patient toleranace). capecitabine (XELODA) 500 mg tablet Take 3 tablets (1,500 mg) by mouth two times a day with food for 14 days on, followed by 7 days off (21-day cycle) ondansetron (ZOFRAN) 8 mg tablet Take 1 tablet by mouth every 8 hours as needed. acetaminophen (TYLENOL) 325 mg tablet Take 2 tablets by mouth every 6 hours as needed for pain. aspirin, enteric coated (ASPIRIN, ENTERIC COATED) 81 mg EC tablet Take 81 mg by mouth once daily. lisinopril (ZESTRIL, PRINIVIL) 10 mg tablet Take 10 mg by mouth once daily. No current facility-administered medications on file prior to visit. [facility] CLINICAL ASSESSMENT - HEMATOLOGY ONCOLOGY V6: Assessment to use: Refill Date of influenza vaccination reminder: 01/01/2024 Date of most recent vaccination assessment: 01/01/2024 Treatment Plan Information: Dx: Gall bladder adenocarcinoma Tx hx: Radical cholecystectomy Tx regimen: Xeloda monotherapy Med: capecitabine (Xeloda) Dose: 1250 mg/m2 x 1.77 m2 = 2212.5 mg BID. Rounded to 1500 mg BID (47.5 % change). d/t [place] population and tolerance Sig: Take 3 tablets (1500 mg) by mouth twice daily with food for 14 days, followed by 7 days off Admin notes: c food, separate by 12 hrs Storage: rm temp Aes: HFS, diarrhea, stomatitis, low appetite, eye irritation Emetic pot: Low Baseline Labs: 12/16/23 - Scr (CrCl 70.8 ml/min), bili, AST, ALT, Hep b screen (triple negative), CBC, DPYD (normal metabolizer) DDI: NONE as of 01/01/24 Est. Tx Plan Start Date: 01/12/2024 Estimated Start Date Info: Tx team confirmed start of cycle on 01/12/24. Est. Estimated Treatment Duration: 6 months or until disease progression or unacceptable toxicity Ana Rey documented in this encounter [facility] 06-21-2024 Note [facility] 06-14-2024 History of Present illness Narrative Radiology Service Progress Note DATE OF SERVICE: June 14, 2024 TIME: 9:57 AM PATIENT IDENTITY VERIFICATION COMPLETED USING TWO (2) STANDARD IDENTIFIERS: Name and Date of confirmed by patient verbally. FALL SCREENING: Has the patient had 2 falls in the last year or 1 fall with injury or currently using an Ambulatory Assistive Device (Walker, Cane, Wheelchair, Crutches, etc.)? No PATIENT GENDER DATA: Assigned female at . status: : No status: NO. PATIENT RELEVANT IMPLANT DATA REVIEWED: Yes PATIENT PRESENTS WITH AN IMPLANTABLE OR ATTACHED STARS COORDINATOR: No ALLERGIES: Reviewed and unchanged CONTRAST ALLERGY: NO. EXAM: MRI - CONTRAST TYPE: GROUP II PERIPHERAL IV DATA: Ambulatory: A peripheral IV was started in the Left WRIST with a Angio cath: 22 gauge. 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 Marie Blair is a 79 year old female who presents for follow up visit for pelvic US HPI: pt presents today to discuss US report. US was ordered by Denice Orozco. Pt denies any pain. Pt states that she was not aware of this cyst until after the CT scan in Mar 2024 04/26/24 Pelvic Us: Left Ovary: Left adnexal cyst of 10.1 x 7.6 x 10.1 cm. This appears to contain some peripheral septation. No solid component Normal-appearing several left ovarian tissue is not visualized 04/19/24 CT scan: Pelvis: * 9.9 x 8.1 cm septated LEFT adnexal cystic lesion (8:105) * No pelvic lymphadenopathy or mass. * No free or focal fluid collection 12/01/23 CT scan: Pelvis: 9.3 x 8.9 cm left adnexal cyst which contains at least one septation. Given the size and appearance of the cyst, this should undergo further evaluation with an MRI of the pelvis with and without contrast. Due to the large size of the cyst, ultrasound may not be able to adequately evaluate the cyst OB History No obstetric history on file. [employer] History LMP: Postmenopausal Age at Menarche: Age at First : Age at Menopause: [employer] History Comments: Sexual Activity: No sexual activity data on record; No partner data on record Contraception: No contraception data on record PAST MEDICAL HISTORY Diagnosis Date Cataract (lens) fragments in eye following cataract surgery, left eye 08/30/2021 Essential hypertension Gallbladder cancer (HCC) 12/16/2023 History of TIA (transient ischemic attack) 2010 Hypercholesteremia PAST SURGICAL HISTORY Procedure Laterality Date APPENDECTOMY HX PAST SURGICAL HISTORY OF Skin cancer removed from forehead REMOVAL GALLBLADDER 11/26/2023 REMV CATARACT EXTRACAP,INSERT LENS Left 08/30/2021 SN60WF +16.5 D REMV CATARACT EXTRACAP,INSERT LENS Right 09/07/2021 SN60WF 16.0D FAMILY HISTORY Problem Relation Age of Onset Stroke Mother Heart Father Heart Sister Heart Sister Heart Brother No Ocular Disease No Family History Social History Tobacco Use Smoking status: Never Smokeless tobacco: Never Vaping Use Vaping status: Never Used Substance Use Topics Alcohol use: Never Drug use: Never Current Outpatient Medications Medication Sig capecitabine (XELODA) 500 mg tablet Take 3 tablets (1,500 mg) by mouth two times a day with food for 14 days on, followed by 7 days off (21-day cycle) ondansetron (ZOFRAN) 8 mg tablet Take 1 tablet by mouth every 8 hours as needed. acetaminophen (TYLENOL) 325 mg tablet Take 2 tablets by mouth every 6 hours as needed for pain. aspirin, enteric coated (ASPIRIN, ENTERIC COATED) 81 mg EC tablet Take 81 mg by mouth once daily. lisinopril (ZESTRIL, PRINIVIL) 10 mg tablet Take 10 mg by mouth once daily. iv contrast (will be provided with radiology test) MRI Female Pelvis Inject, intravenously, once for 1 dose. No IV access, insert saline lock prior to the beginning of sedation, infusion, injection of imaging exam. Discontinue saline lock post exam. If Pt has a central line or IVAD, may access for administration according to line specific nursing protocol. Once exam is complete flush line and de-access according to line specific nursing protocol in the MR contrast administration guidelines link. Surgical Lubricant Jelly gel For MRI Female Pelvis, MRI department to provide. Administer intra-vaginal Surgilube immediately prior the MRI procedure (total amount to patient toleranace). No current facility-administered medications for this visit. Allergies As of Date: 06/08/2024 (No Known Allergies) Fully Assessed 06/08/2024 REVIEW OF SYSTEMS Expanded ROS: N/A Allergies and current medication updated:Yes SENSITIVE EXAM: Sensitive exam not performed. EXAM: BP 130/76 Wt 157 lb 12.8 oz (71.6kg) GENERAL: pleasant, female in no apparent distress HEENT: Normocephalic, atraumatic, mucus membranes moist, and no lesions CHEST: Normal inspiratory effort NEURO: alert and oriented x3,exam grossly non-focal EXTREMITIES: normal ASSESSMENT AND PLAN: Assessment & Plan 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) Orders: MRI FEMALE PELVIS WO/W IVCON; Future Will notify patient of test results. Taty Velazquez APRN.INSURANCE PROCESSING CLERK Medical Decision Making: Problems: Moderate: New problem with uncertain prognosis Data: Unique test(s) ordered: 1 Risk: Low: Low risk from testing/treatment Medical Decision Making Level: 3 - Low documented in this encounter [facility] 06-04-2024 Note [facility] 06-04-2024 History of Present illness Narrative Chief Complaint Patient presents with: Established Patient HPI: Marie Blair is a 79 year old female who presents here today for evaluation for next cycle of xeloda. Per Dr. Jose's previous note: H/o Began having dull, continuous RUQ pain about 2 months ago. Had an ultrasound on 11/07/2023. Liver was noted to be 14.3 cm in length. Homogeneous echotexture without focal lesion. No intrahepatic ductal dilation. CBD: 7 mm in diameter. Gallbladder demonstrated shadowing gallstones with heterogeneous appearance. Gallbladder wall was 5 mm thick. No pericholecystic fluid. Sonographic Chin sign negative. Visualized proximal portion of the pancreas is unremarkable. CT scan on 11/12/2023. Findings were suspicious for acute cholecystitis. The gallbladder was noted to be contracted with multiple gallstones and wall thickening and stranding in the fat surrounding the fundus of the gallbladder worrisome for acute cholecystitis. There was mild intrahepatic biliary ductal dilation. She is admitted to [facility] on 11/18/2023. Started on antibiotics. Transferred to [facility]. Underwent MRCP. 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 Transferred to [facility] On 11/19. ERCP on 11/20. Failed attempt to cannulate the CBD. Repeat ERCP with stent placed on 11/23. Underwent radical cholecystectomy with en bloc partial duodenectomy for gallbladder adenocarcinoma 11/26/2023 with postop biliary leak from cystic duct stump managed with a drain. Pathology: FINAL DIAGNOSIS A. Small bowel, duodenal margin, biopsy: - Benign duodenal tissues. B. Soft tissue, ventral fat pad, excision: - Benign fibroadipose tissue. C. Lymph node, periportal, excision: - Metastatic carcinoma in one lymph node (1). D. Lymph node, hepatic artery, excision: - One benign lymph node (0). E. Cystic duct margin, excision: - Negative for malignancy. F. Gallbladder, liver (segments 4b-5) and duodenum (2nd portion), en bloc resection: - Poorly differentiated adenocarcinoma of gallbladder, arising in a background of high-grade dysplasia (see comment). - Tumor directly invades through gallbladder wall into hepatic parenchyma and duodenal wall as well as pericholecystic fibroadipose with microscopic features of pericholecystic abscess. - Focal serosal involvement is identified. - Margins negative for high-grade dysplasia and malignancy. - Positive for lymphovascular invasion. - Non-neoplastic hepatic parenchyma with no significant pathologic changes. Diagnosis Comment Block for additional Biomarkers/Molecular studies F6 Synoptic Report GALLBLADDER 8th Edition - Protocol posted: 09/27/2020GALLBLADDER: RESECTION/CHOLECYSTECTOMY - All Specimens SPECIMEN Procedure En bloc resection of gallbladder, liver segments 4b-5 and second portion of duodenum TUMOR Tumor Site Fundus Body Histologic Type Adenocarcinoma, biliary type Histologic Grade G3, poorly differentiated Tumor Size Greatest Dimension (Centimeters): 4.8 cm Additional Dimension (Centimeters) 3.4 cm 2.3 cm Tumor Extent Directly invades other adjacent organ(s) or structure(s) Duodenum Lymphovascular Invasion Present Perineural Invasion Not identified MARGINS Margin Status for Invasive Carcinoma All margins negative for invasive carcinoma Distance from Invasive Carcinoma to Cystic Duct Margin 1.3 cm Distance from Invasive Carcinoma to Liver Parenchymal Margin 1.5 cm Margin Status for Intraepithelial Neoplasia All margins negative for high-grade intraepithelial neoplasia Margin Comment Invasive adenocarcinoma is 0.2 cm away from the duodenal resection margin. REGIONAL LYMPH NODES Regional Lymph Node Status Tumor present in regional lymph node(s) Number of Lymph Nodes with Tumor 1 Number of Lymph Nodes Examined 2 PATHOLOGIC STAGE CLASSIFICATION (pTNM, AJCC 8th Edition) Reporting of pT, pN, and (when applicable) pM categories is based on information available to the pathologist at the time the report is issued. As per the AJCC (Chapter 1, 8th Ed.) it is the managing physician s responsibility to establish the final pathologic stage based upon all pertinent information, including but potentially not limited to this pathology report. pT Category pT3 pN Category pN1 ADDITIONAL FINDINGS Additional Findings Dysplasia / adenoma Cholelithiasis ~15 lb weight loss overall. Still has drain. Eating small amounts. No nausea or reflux. Gas type pain in RUQ. Having dark, formed stools. Most of the day in a chair right now. TIA 20+ years ago. Temporary lateral visual field cut left eye. Initially treated with Plavix. On low dose ASA now. Current therapy:Xeloda Began 01/12/24. Pt. here today with spouse. Pt. is in her off week. She plans to start her next cycle on Friday. Appetite:Ok Wt. up 2# since last visit. Energy level:Ok. Denies fevers or recent illness. Mouth:denies sores Resp:denies cough or sob Cardiac:denies chest pain/palpitations GI:denies abd pain, n/v, moving bowels regularly :denies dysuria/hematuria Extrem:denies pain Neuro:denies symptoms of neuropathy Skin:denies rashes, +dryness to hands/feet Heme:denies bleeding The ROS is otherwise negative. Past medical history, appointments, medications, allergies reviewed. No changes. EXAM: BP 138/81 Pulse 71 Temp 36.6 C (97.8 F) (Temporal) Wt 70.8 kg (156 lb 1.4 oz) SpO2 94% BMI 24.09 kg/m APPEARANCE Well appearing, alert, in no acute distress, well-hydrated, well nourished. MOUTH no thrush/mucositis HEART RRR with normal S1 and S2, no murmurs LUNG clear to auscultation LYMPH NODES No cervical lymphadenopathy, No supraclavicular lymphadenopathy, and No axillary lymphadenopathy. ABDOMEN bowel sounds normoactive, soft, non-tender EXTREMITIES No edema NEURO Awake, alert and oriented x 3, Normal gait, and No involuntary motions. SKIN +dry palms, no cracking LABS: Latest Ref Rng 2024 05/14/2024 06/04/2024 WBC 3.70 - 11.00 k/uL 7.25 5.83 5.69 RBC 3.90 - 5.20 m/uL 3.16 (L) 3.18 (L) 3.27 (L) Hemoglobin 11.5 - 15.5 g/dL 10.5 (L) 10.7 (L) 11.4 (L) Hematocrit 36.0 - 46.0 % 31.8 (L) 33.0 (L) 34.3 (L) MCV 80.0 - 100.0 fL 100.6 (H) 103.8 (H) 104.9 (H) MCH 26.0 - 34.0 pg 33.2 33.6 34.9 (H) MCHC 30.5 - 36.0 g/dL 33.0 32.4 33.2 RDW-CV 11.5 - 15.0 % 21.1 (H) 19.4 (H) 17.3 (H) Platelet Count 150 - 400 k/uL 254 230 243 MPV 9.0 - 12.7 fL 9.2 9.2 9.3 Neut% % 53.9 49.1 49.4 Abs Neut (ANC) 1.45 - 7.50 k/uL 3.90 2.86 2.82 Lymph% % 30.3 37.7 36.6 Abs Lymph 1.00 - 4.00 k/uL 2.20 2.20 2.08 Barbour% % 12.4 10.5 10.7 Abs Barbour <0.87 k/uL 0.90 (H) 0.61 0.61 Eosin% % 1.8 2.2 2.5 Abs Eosin <0.46 k/uL 0.13 0.13 0.14 Baso% % 0.4 0.3 0.4 Abs Baso <0.11 k/uL 0.03 <0.03 <0.03 Immature Gran % % 1.2 0.2 0.4 IMMATURE GRANS (ABS) <0.10 k/uL 0.09 <0.03 <0.03 NRBC /100 WBC 0.0 0.0 0.0 Absolute nRBC <0.01 k/uL <0.01 <0.01 <0.01 DTYPE Auto Auto Auto CMP: Pending ASSESSMENT/PLAN: 1. Gallbladder cancer (HCC) - ICD9: 156.0, ICD10: C23 Per Dr. 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 -I discussed the pathology with the patient and her . I also discussed the natural history, treated course, and prognosis of the disease as well as the rationale for adjuvant therapy. -Recommended a standard adjuvant course of capecitabine. -I discussed the rationale (based on the BILCAP trial), logistics, potential risks (including but not limited to fatigue, cytopenias, mucositis, diarrhea, nausea and vomiting, hand-foot skin syndrome, infections and the small potential for as a consequence of severe toxicity/complications of therapy), benefits and alternatives, as well as the personnel involved in the administration of capecitabine. I answered her questions in detail and she verbalized understanding and agreed with the recommended therapy. Please see the electronic consent document for details of doses and schedule. Plan: -Labs today including CBC, chemistry panel, hematinics and DPYD/UGT1A1 genotyping panel. -Plan to begin therapy in a few weeks once drain out and she's had some more time for recovery. -Aim for 6 months of treatment. -CTs in about 3 months. - Overall tolerating xeloda well compared to first cycle-no n/v/constipation/diarrhea. - Reviewed CBC with pt. and spouse. - CMP pending. - Continue current dose of xeloda. - Goal 6 months of treatment pending tolerance. Will complete therapy in June. - Continue current medications. - Follow up with [facility] as scheduled. - Proceed with next cycle of xeloda on Friday. - Follow up June 22 @ 9:30a.m. with CBC/CMP. - Pt. aware to call office with any questions/concerns. The patient indicates understanding of these issues and agrees with the plan. All documentation from previous visit of 05/14/24-Dr. Jose/myself was copied and pasted, documentation has been reviewed and edited as necessary for today's visit. Denice Orozco APRN.DANIELLA documented in this encounter [facility] 05-31-2024 History of Present illness Narrative [facility] Refill Assessment Medication(s): capecitabine Patient's current medication list and adherence status to current therapy were reviewed by [facility] clinical pharmacist to identify any new drug interactions or non-compliance to therapy. Therapy continues to be appropriate for disease, patient response, and medical condition. Verification of therapeutic benefit and effectiveness with current therapy was completed. Adverse events, barriers in adherence, and side effects were assessed and addressed if applicable. Will proceed with refill with no changes in therapy - patient progressing towards achieving therapeutic goals based on medication-specific laboratory parameters, disease state markers and outcomes. Office/provider notes have been reviewed prior to dispensing the medication. 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 Patient confirmed: Yes Med/dose confirmed: Yes Supplies needed: No supplies needed Missed doses: No Estimated days supply on hand: (last dose 3/2) Copay amount: 11.52 Copay form of payment: Credit card on file Payment confirmed: Yes Delivery method: FedEx Signature required: No Delivery address: [address] [place] [address] Delivery date: 06/03/24 Questions or concerns for the pharmacist?: No Did you have any side effects believed to be related to this medication, that resulted in hospitalization?: No Current Outpatient Medications on File Prior to Visit Medication Sig capecitabine (XELODA) 500 mg tablet Take 3 tablets (1,500 mg) by mouth two times a day with food for 14 days on, followed by 7 days off (21-day cycle) ondansetron (ZOFRAN) 8 mg tablet Take 1 tablet by mouth every 8 hours as needed. acetaminophen (TYLENOL) 325 mg tablet Take 2 tablets by mouth every 6 hours as needed for pain. aspirin, enteric coated (ASPIRIN, ENTERIC COATED) 81 mg EC tablet Take 81 mg by mouth once daily. lisinopril (ZESTRIL, PRINIVIL) 10 mg tablet Take 10 mg by mouth once daily. atorvastatin (LIPITOR) 20 mg tablet Take 20 mg by mouth once daily. No current facility-administered medications on file prior to visit. [facility] CLINICAL ASSESSMENT - HEMATOLOGY ONCOLOGY V6: Assessment to use: Refill Date of influenza vaccination reminder: 01/01/2024 Date of most recent vaccination assessment: 01/01/2024 Treatment Plan Information: Dx: Gall bladder adenocarcinoma Tx hx: Radical cholecystectomy Tx regimen: Xeloda monotherapy Med: capecitabine (Xeloda) Dose: 1250 mg/m2 x 1.77 m2 = 2212.5 mg BID. Rounded to 1500 mg BID (47.5 % change). d/t [place] population and tolerance Sig: Take 3 tablets (1500 mg) by mouth twice daily with food for 14 days, followed by 7 days off Admin notes: c food, separate by 12 hrs Storage: rm temp Aes: HFS, diarrhea, stomatitis, low appetite, eye irritation Emetic pot: Low Baseline Labs: 12/16/23 - Scr (CrCl 70.8 ml/min), bili, AST, ALT, Hep b screen (triple negative), CBC, DPYD (normal metabolizer) DDI: NONE as of 01/01/24 Est. Tx Plan Start Date: 01/12/2024 Estimated Start Date Info: Tx team confirmed start of cycle on 01/12/24. Est. Estimated Treatment Duration: 6 months or until disease progression or unacceptable toxicity Shelia Machado documented in this encounter [facility] 05-31-2024 Note [facility] 05-14-2024 Note [facility] 05-14-2024 History of Present illness Narrative Chief Complaint Patient presents with: Established Patient HPI: Marie Blair is a 79 year old female who presents here today for evaluation for next cycle of xeloda. Per Dr. Jose's previous note: H/o Began having dull, continuous RUQ pain about 2 months ago. Had an ultrasound on 11/07/2023. Liver was noted to be 14.3 cm in length. Homogeneous echotexture without focal lesion. No intrahepatic ductal dilation. CBD: 7 mm in diameter. Gallbladder demonstrated shadowing gallstones with heterogeneous appearance. Gallbladder wall was 5 mm thick. No pericholecystic fluid. Sonographic Chin sign negative. Visualized proximal portion of the pancreas is unremarkable. CT scan on 11/12/2023. Findings were suspicious for acute cholecystitis. The gallbladder was noted to be contracted with multiple gallstones and wall thickening and stranding in the fat surrounding the fundus of the gallbladder worrisome for acute cholecystitis. There was mild intrahepatic biliary ductal dilation. She is admitted to [facility] on 11/18/2023. Started on antibiotics. Transferred to [facility]. Underwent MRCP. 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 Transferred to [facility] On 11/19. ERCP on 11/20. Failed attempt to cannulate the CBD. Repeat ERCP with stent placed on 11/23. Underwent radical cholecystectomy with en bloc partial duodenectomy for gallbladder adenocarcinoma 11/26/2023 with postop biliary leak from cystic duct stump managed with a drain. Pathology: FINAL DIAGNOSIS A. Small bowel, duodenal margin, biopsy: - Benign duodenal tissues. B. Soft tissue, ventral fat pad, excision: - Benign fibroadipose tissue. C. Lymph node, periportal, excision: - Metastatic carcinoma in one lymph node (1/). D. Lymph node, hepatic artery, excision: - One benign lymph node (0/1). E. Cystic duct margin, excision: - Negative for malignancy. F. Gallbladder, liver (segments 4b-5) and duodenum (2nd portion), en bloc resection: - Poorly differentiated adenocarcinoma of gallbladder, arising in a background of high-grade dysplasia (see comment). - Tumor directly invades through gallbladder wall into hepatic parenchyma and duodenal wall as well as pericholecystic fibroadipose with microscopic features of pericholecystic abscess. - Focal serosal involvement is identified. - Margins negative for high-grade dysplasia and malignancy. - Positive for lymphovascular invasion. - Non-neoplastic hepatic parenchyma with no significant pathologic changes. Diagnosis Comment Block for additional Biomarkers/Molecular studies F6 Synoptic Report GALLBLADDER 8th Edition - Protocol posted: 09/27/2020GALLBLADDER: RESECTION/CHOLECYSTECTOMY - All Specimens SPECIMEN Procedure En bloc resection of gallbladder, liver segments 4b-5 and second portion of duodenum TUMOR Tumor Site Fundus Body Histologic Type Adenocarcinoma, biliary type Histologic Grade G3, poorly differentiated Tumor Size Greatest Dimension (Centimeters): 4.8 cm Additional Dimension (Centimeters) 3.4 cm 2.3 cm Tumor Extent Directly invades other adjacent organ(s) or structure(s) Duodenum Lymphovascular Invasion Present Perineural Invasion Not identified MARGINS Margin Status for Invasive Carcinoma All margins negative for invasive carcinoma Distance from Invasive Carcinoma to Cystic Duct Margin 1.3 cm Distance from Invasive Carcinoma to Liver Parenchymal Margin 1.5 cm Margin Status for Intraepithelial Neoplasia All margins negative for high-grade intraepithelial neoplasia Margin Comment Invasive adenocarcinoma is 0.2 cm away from the duodenal resection margin. REGIONAL LYMPH NODES Regional Lymph Node Status Tumor present in regional lymph node(s) Number of Lymph Nodes with Tumor 1 Number of Lymph Nodes Examined 2 PATHOLOGIC STAGE CLASSIFICATION (pTNM, AJCC 8th Edition) Reporting of pT, pN, and (when applicable) pM categories is based on information available to the pathologist at the time the report is issued. As per the AJCC (Chapter 1, 8th Ed.) it is the managing physician s responsibility to establish the final pathologic stage based upon all pertinent information, including but potentially not limited to this pathology report. pT Category pT3 pN Category pN1 ADDITIONAL FINDINGS Additional Findings Dysplasia / adenoma Cholelithiasis ~15 lb weight loss overall. Still has drain. Eating small amounts. No nausea or reflux. Gas type pain in RUQ. Having dark, formed stools. Most of the day in a chair right now. TIA 20+ years ago. Temporary lateral visual field cut left eye. Initially treated with Plavix. On low dose ASA now. Current therapy:Xeloda Began 01/12/24. Pt. here today with spouse. Pt. is in her off week. She plans to start her next cycle on Friday. Appetite:Ok Wt. up 3# since last visit. Energy level:Ok. Denies fevers or recent illness. Mouth:denies sores Resp:denies cough or sob Cardiac:denies chest pain/palpitations GI:denies abd pain, n/v, moving bowels regularly :denies dysuria/hematuria Extrem:denies pain Neuro:denies symptoms of neuropathy Skin:denies rashes, +dryness to hands/feet, mild crack Heme:denies bleeding The ROS is otherwise negative. Past medical history, appointments, medications, allergies reviewed. No changes. EXAM: BP 128/74 Pulse 78 Temp 36.6 C (97.8 F) (Temporal) Wt 70.1 kg (154 lb 8.7 oz) SpO2 98% BMI 23.85 kg/m APPEARANCE Well appearing, alert, in no acute distress, well-hydrated, well nourished. HEART RRR with normal S1 and S2, no murmurs LUNG clear to auscultation LYMPH NODES No cervical lymphadenopathy, No supraclavicular lymphadenopathy, and No axillary lymphadenopathy. ABDOMEN bowel sounds normoactive, soft, non-tender EXTREMITIES No edema NEURO Awake, alert and oriented x 3, Normal gait, and No involuntary motions. SKIN Skin dry, crack to R thumb, no erythema LABS: Latest Ref Rng 04/02/2024 2024 05/14/2024 WBC 3.70 - 11.00 k/uL 7.01 7.25 5.83 RBC 3.90 - 5.20 m/uL 3.58 (L) 3.16 (L) 3.18 (L) Hemoglobin 11.5 - 15.5 g/dL 11.2 (L) 10.5 (L) 10.7 (L) Hematocrit 36.0 - 46.0 % 34.6 (L) 31.8 (L) 33.0 (L) MCV 80.0 - 100.0 fL 96.6 100.6 (H) 103.8 (H) MCH 26.0 - 34.0 pg 31.3 33.2 33.6 MCHC 30.5 - 36.0 g/dL 32.4 33.0 32.4 RDW-CV 11.5 - 15.0 % 21.3 (H) 21.1 (H) 19.4 (H) Platelet Count 150 - 400 k/uL 257 254 230 MPV 9.0 - 12.7 fL 8.9 (L) 9.2 9.2 Neut% % 52.4 53.9 49.1 Abs Neut (ANC) 1.45 - 7.50 k/uL 3.67 3.90 2.86 Lymph% % 34.2 30.3 37.7 Abs Lymph 1.00 - 4.00 k/uL 2.40 2.20 2.20 Barbour% % 10.3 12.4 10.5 Abs Barbour <0.87 k/uL 0.72 0.90 (H) 0.61 Eosin% % 2.4 1.8 2.2 Abs Eosin <0.46 k/uL 0.17 0.13 0.13 Baso% % 0.4 0.4 0.3 Abs Baso <0.11 k/uL 0.03 0.03 <0.03 Immature Gran % % 0.3 1.2 0.2 IMMATURE GRANS (ABS) <0.10 k/uL <0.03 0.09 <0.03 NRBC /100 WBC 0.0 0.0 0.0 Absolute nRBC <0.01 k/uL <0.01 <0.01 <0.01 DTYPE Auto Auto Auto Latest Ref Rng 04/02/2024 2024 05/14/2024 Protein, Total 6.3 - 8.0 g/dL 6.6 6.4 6.9 Albumin 3.9 - 4.9 g/dL 4.0 4.0 4.2 Calcium 8.5 - 10.2 mg/dL 9.8 9.7 10.2 Bilirubin, Total 0.2 - 1.3 mg/dL 0.5 0.5 0.4 Alkaline Phosphatase 34 - 123 U/L 77 78 83 AST 13 - 35 U/L 11 (L) 10 (L) 11 (L) ALT 7 - 38 U/L 5 (L) 5 (L) <5 (L) Glucose 74 - 99 mg/dL 105 (H) 88 83 BUN 7 - 21 mg/dL 18 21 20 Creatinine 0.58 - 0.96 mg/dL 0.71 0.79 0.85 Sodium 136 - 144 mmol/L 138 140 142 Potassium 3.7 - 5.1 mmol/L 4.3 3.8 3.9 Chloride 98 - 107 mmol/L 106 107 108 (H) CO2 22 - 30 mmol/L 24 26 26 Anion Gap 8 - 15 mmol/L 8 7 (L) 8 eGFR >=60 mL/min/1.73m 87 76 70 ASSESSMENT/PLAN: 1. Gallbladder cancer (HCC) - ICD9: 156.0, ICD10: C23 Per Dr. 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 -I discussed the pathology with the patient and her . I also discussed the natural history, treated course, and prognosis of the disease as well as the rationale for adjuvant therapy. -Recommended a standard adjuvant course of capecitabine. -I discussed the rationale (based on the BILCAP trial), logistics, potential risks (including but not limited to fatigue, cytopenias, mucositis, diarrhea, nausea and vomiting, hand-foot skin syndrome, infections and the small potential for as a consequence of severe toxicity/complications of therapy), benefits and alternatives, as well as the personnel involved in the administration of capecitabine. I answered her questions in detail and she verbalized understanding and agreed with the recommended therapy. Please see the electronic consent document for details of doses and schedule. Plan: -Labs today including CBC, chemistry panel, hematinics and DPYD/UGT1A1 genotyping panel. -Plan to begin therapy in a few weeks once drain out and she's had some more time for recovery. -Aim for 6 months of treatment. -CTs in about 3 months. - Overall tolerating xeloda well compared to first cycle-no n/v/constipation/diarrhea. - Reviewed CBC/CMP/US with pt. and spouse. - Continue current dose of xeloda. - Goal 6 months of treatment pending tolerance. - Continue current medications. - Follow up with [facility] as scheduled. - Proceed with next cycle of xeloda on Friday. - Follow up June 04 @ 8:30a.m. with CBC/CMP. - Pt. aware to call office with any questions/concerns. The patient indicates understanding of these issues and agrees with the plan. All documentation from previous visit of 04/23/24-Dr. Jose/myself was copied and pasted, documentation has been reviewed and edited as necessary for today's visit. Denice Orozco APRN.INSURANCE PROCESSING CLERK documented in this encounter [facility] 05-13-2024 History of Present illness Narrative [facility] Refill Assessment Medication(s): capecitabine Reviewed OV note on 05/14, Overall tolerating xeloda well compared to first cycle-no n/v/constipation/diarrhea -Proceed with next cycle of xeloda on Friday. - Follow up June 04 @ 8:30a.m. with CBC/CMP. Reviewed 05/14 labs, stable BP - 128/74 (05/14) Reviewed CT & US scan(s) on 04/19 & 04/26 Next clinic visit scheduled 06/04. ALLERGIES No Known Allergies Capecitabine cycle (21DS: 14d on/7d off): C1D1 01/12/24 C2D1 02/02/24 C3D1 02/23/24 C4D1 03/15/24 C5D1 04/05/24 C6D1 04/26/24 C7D1 05/17/24 C8D1 06/07/24 Patient's current medication list and adherence status to current therapy were reviewed by Specialty Pharmacy clinical pharmacist to identify any new drug interactions or non-compliance to therapy. Therapy continues to be appropriate for disease, patient response, and medical condition. Verification of therapeutic benefit and effectiveness with current therapy was completed. Adverse events, barriers in adherence, and side effects were assessed and addressed if applicable. Will proceed with refill with no changes in therapy - patient progressing towards achieving therapeutic goals based on medication-specific laboratory parameters, disease state markers and outcomes. Office/provider notes have been reviewed prior to dispensing the medication. Sotero Bronson, CoreyD Clinical Pharmacist, Oncology [facility] P: ; F: Pool: P [facility] Pool #: [id number] 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 Patient confirmed: Yes Med/dose confirmed: Yes Supplies needed: No supplies needed Missed doses: No Estimated days supply on hand: 0 (last dose 05/09) Next cycle/dose due: 05/17/24 Copay amount: 9.92 Copay form of payment: Credit card on file Payment confirmed: Yes Delivery method: FedEx Signature required: No Delivery address: [address] [place] [address] [address] [address] Delivery date: 05/15/24 Questions or concerns for the pharmacist?: No Did you have any side effects believed to be related to this medication, that resulted in hospitalization?: No Current Outpatient Medications on File Prior to Visit Medication Sig capecitabine (XELODA) 500 mg tablet Take 3 tablets (1,500 mg) by mouth two times a day with food for 14 days on, followed by 7 days off (21-day cycle) ondansetron (ZOFRAN) 8 mg tablet Take 1 tablet by mouth every 8 hours as needed. acetaminophen (TYLENOL) 325 mg tablet Take 2 tablets by mouth every 6 hours as needed for pain. aspirin, enteric coated (ASPIRIN, ENTERIC COATED) 81 mg EC tablet Take 81 mg by mouth once daily. lisinopril (ZESTRIL, PRINIVIL) 10 mg tablet Take 10 mg by mouth once daily. atorvastatin (LIPITOR) 20 mg tablet Take 20 mg by mouth once daily. No current facility-administered medications on file prior to visit. [facility] CLINICAL ASSESSMENT - HEMATOLOGY ONCOLOGY V6: Assessment to use: Refill Lab monitoring inclusive of CBC, Chem-7, and other labs as pertinent for therapy: Yes Chemo cycle timing assessment: Yes Assessment of injection issues: N/A Current medication list (including drug interaction assessment): Yes Experience of adverse reactions to the medication: Yes Date of influenza vaccination reminder: 01/01/2024 Date of most recent vaccination assessment: 01/01/2024 Treatment Plan Information: Dx: Gall bladder adenocarcinoma Tx hx: Radical cholecystectomy Tx regimen: Xeloda monotherapy Med: capecitabine (Xeloda) Dose: 1250 mg/m2 x 1.77 m2 = 2212.5 mg BID. Rounded to 1500 mg BID (47.5 % change). d/t [place] population and tolerance Sig: Take 3 tablets (1500 mg) by mouth twice daily with food for 14 days, followed by 7 days off Admin notes: c food, separate by 12 hrs Storage: rm temp Aes: HFS, diarrhea, stomatitis, low appetite, eye irritation Emetic pot: Low Baseline Labs: 12/16/23 - Scr (CrCl 70.8 ml/min), bili, AST, ALT, Hep b screen (triple negative), CBC, DPYD (normal metabolizer) DDI: NONE as of 01/01/24 Est. Tx Plan Start Date: 01/12/2024 Estimated Start Date Info: Tx team confirmed start of cycle on 01/12/24. Est. Estimated Treatment Duration: 6 months or until disease progression or unacceptable toxicity Shelia Machado documented in this encounter [facility] 05-13-2024 Note [facility] 04-26-2024 History of Present illness Narrative [facility] Refill Assessment Medication(s): Capecitabine Patient's current medication list and adherence status to current therapy were reviewed by Specialty Pharmacy clinical pharmacist to identify any new drug interactions or non-compliance to therapy. Therapy continues to be appropriate for disease, patient response, and medical condition. Verification of therapeutic benefit and effectiveness with current therapy was completed. Adverse events, barriers in adherence, and side effects were assessed and addressed if applicable. Will proceed with refill with no changes in therapy - patient progressing towards achieving therapeutic goals based on medication-specific laboratory parameters, disease state markers and outcomes. Office/provider notes have been reviewed prior to dispensing the medication. 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 Patient confirmed: Yes Med/dose confirmed: Yes Supplies needed: No supplies needed Missed doses: No Next cycle/dose due: 04/26/24 Copay amount: 9.6 Copay form of payment: Credit card on file Payment confirmed: Yes Delivery method: FedEx Signature required: No Delivery address: [address] [place] [address] Delivery date: 04/28/24 Questions or concerns for the pharmacist?: No Did you have any side effects believed to be related to this medication, that resulted in hospitalization?: No Current Outpatient Medications on File Prior to Visit Medication Sig ondansetron (ZOFRAN) 8 mg tablet Take 1 tablet by mouth every 8 hours as needed. capecitabine (XELODA) 500 mg tablet Take 3 tablets (1,500 mg) by mouth two times a day with food for 14 days on, followed by 7 days off (21-day cycle) acetaminophen (TYLENOL) 325 mg tablet Take 2 tablets by mouth every 6 hours as needed for pain. aspirin, enteric coated (ASPIRIN, ENTERIC COATED) 81 mg EC tablet Take 81 mg by mouth once daily. lisinopril (ZESTRIL, PRINIVIL) 10 mg tablet Take 10 mg by mouth once daily. atorvastatin (LIPITOR) 20 mg tablet Take 20 mg by mouth once daily. No current facility-administered medications on file prior to visit. [facility] CL[facility]ICAL ASSESSMENT - HEMATOLOGY ONCOLOGY V7 Date of influenza vaccination reminder: 01/01/2024 Date of most recent vaccination assessment: 01/01/2024 Treatment Plan Information: Dx: Gall bladder adenocarcinoma Tx hx: Radical cholecystectomy Tx regimen: Xeloda monotherapy Med: capecitabine (Xeloda) Dose: 1250 mg/m2 x 1.77 m2 = 2212.5 mg BID. Rounded to 1500 mg BID (47.5 % change). d/t [place] population and tolerance Sig: Take 3 tablets (1500 mg) by mouth twice daily with food for 14 days, followed by 7 days off Admin notes: c food, separate by 12 hrs Storage: rm temp Aes: HFS, diarrhea, stomatitis, low appetite, eye irritation Emetic pot: Low Baseline Labs: 12/16/23 - Scr (CrCl 70.8 ml/min), bili, AST, ALT, Hep b screen (triple negative), CBC, DPYD (normal metabolizer) DDI: NONE as of 01/01/24 Est. Tx Plan Start Date: 01/12/2024 Estimated Start Date Info: Tx team confirmed start of cycle on 01/12/24. Est. Estimated Treatment Duration: 6 months or until disease progression or unacceptable toxicity Shelia Machado documented in this encounter [facility] 04-26-2024 Note [facility] 04-26-2024 Telephone encounter Note Noted. Thank you. Denice Orozco APRN.INSURANCE PROCESSING CLERK [facility] 04-26-2024 Miscellaneous Notes Noted. Thank you. Denice Orozco APRN.CNP I called and spoke to Marie and scheduled her as a new patient in our [facility] department with Taty [place] for 06/08/24, she confirmed this date & time. She did not want to go to another [facility] facility to be seen sooner Melissa Orantes Please see check out note from Friday. Pt. still needs a follow up scheduled with [facility]-see notes. Denice Orozco APRN.DANIELLA documented in this encounter [facility] 04-26-2024 Telephone encounter Note I called and spoke to Marie and scheduled her as a new patient in our [facility] department with Taty Pieter for 06/08/24, she confirmed this date & time. She did not want to go to another [facility] facility to be seen sooner Melissa Orantes [facility] 04-26-2024 Telephone encounter Note Please see check out note from Friday. Pt. still needs a follow up scheduled with [facility]-see notes. Denice Orozco APRN.CNP [facility] 04-26-2024 History of Present illness Narrative Radiology Service Progress Note PATIENT NAME: Marie Blair DATE OF SERVICE: April 26, 2024 TIME: 1:24 PM PATIENT IDENTITY VERIFICATION COMPLETED USING TWO (2) IDENTIFIERS: Name and Date of confirmed by patient verbally. FALL SCREENING: Has the patient had 2 falls in the last year or 1 fall with injury or currently using an Ambulatory Assistive Device (Walker, Cane, Wheelchair, Crutches, etc.)? No PATIENT GENDER DATA: Assigned female at . status: : No status: NO. PATIENT RELEVANT IMPLANT DATA REVIEWED: Not Applicable PATIENT PRESENTS WITH AN IMPLANTABLE OR ATTACHED STARS COORDINATOR: No RADIOLOGY DEPARTMENT: Ultrasound PERIPHERAL IV DATA: Not applicable SIGNED BY: Aga Crowe RDMS RVT April 26, 2024 1:24 PM documented in this encounter [facility] 04-26-2024 Note [facility] 2024 Note [facility] 2024 History of Present illness Narrative Chief Complaint Patient presents with: Established Patient HPI: Marie Blair is a 79 year old female who presents here today for follow up gallbladder cancer. Per Dr. Jose's previous note: H/o Began having dull, continuous RUQ pain about 2 months ago. Had an ultrasound on 11/07/2023. Liver was noted to be 14.3 cm in length. Homogeneous echotexture without focal lesion. No intrahepatic ductal dilation. CBD: 7 mm in diameter. Gallbladder demonstrated shadowing gallstones with heterogeneous appearance. Gallbladder wall was 5 mm thick. No pericholecystic fluid. Sonographic Chin sign negative. Visualized proximal portion of the pancreas is unremarkable. CT scan on 11/12/2023. Findings were suspicious for acute cholecystitis. The gallbladder was noted to be contracted with multiple gallstones and wall thickening and stranding in the fat surrounding the fundus of the gallbladder worrisome for acute cholecystitis. There was mild intrahepatic biliary ductal dilation. She is admitted to [facility] on 11/18/2023. Started on antibiotics. Transferred to [facility]. Underwent MRCP. 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 Transferred to [facility] On 11/19. ERCP on 11/20. Failed attempt to cannulate the CBD. Repeat ERCP with stent placed on 11/23. Underwent radical cholecystectomy with en bloc partial duodenectomy for gallbladder adenocarcinoma 11/26/2023 with postop biliary leak from cystic duct stump managed with a drain. Pathology: FINAL DIAGNOSIS A. Small bowel, duodenal margin, biopsy: - Benign duodenal tissues. B. Soft tissue, ventral fat pad, excision: - Benign fibroadipose tissue. C. Lymph node, periportal, excision: - Metastatic carcinoma in one lymph node (1/1). D. Lymph node, hepatic artery, excision: - One benign lymph node (0/1). E. Cystic duct margin, excision: - Negative for malignancy. F. Gallbladder, liver (segments 4b-5) and duodenum (2nd portion), en bloc resection: - Poorly differentiated adenocarcinoma of gallbladder, arising in a background of high-grade dysplasia (see comment). - Tumor directly invades through gallbladder wall into hepatic parenchyma and duodenal wall as well as pericholecystic fibroadipose with microscopic features of pericholecystic abscess. - Focal serosal involvement is identified. - Margins negative for high-grade dysplasia and malignancy. - Positive for lymphovascular invasion. - Non-neoplastic hepatic parenchyma with no significant pathologic changes. Diagnosis Comment Block for additional Biomarkers/Molecular studies F6 Synoptic Report GALLBLADDER 8th Edition - Protocol posted: 09/27/2020GALLBLADDER: RESECTION/CHOLECYSTECTOMY - All Specimens SPECIMEN Procedure En bloc resection of gallbladder, liver segments 4b-5 and second portion of duodenum TUMOR Tumor Site Fundus Body Histologic Type Adenocarcinoma, biliary type Histologic Grade G3, poorly differentiated Tumor Size Greatest Dimension (Centimeters): 4.8 cm Additional Dimension (Centimeters) 3.4 cm 2.3 cm Tumor Extent Directly invades other adjacent organ(s) or structure(s) Duodenum Lymphovascular Invasion Present Perineural Invasion Not identified MARGINS Margin Status for Invasive Carcinoma All margins negative for invasive carcinoma Distance from Invasive Carcinoma to Cystic Duct Margin 1.3 cm Distance from Invasive Carcinoma to Liver Parenchymal Margin 1.5 cm Margin Status for Intraepithelial Neoplasia All margins negative for high-grade intraepithelial neoplasia Margin Comment Invasive adenocarcinoma is 0.2 cm away from the duodenal resection margin. REGIONAL LYMPH NODES Regional Lymph Node Status Tumor present in regional lymph node(s) Number of Lymph Nodes with Tumor 1 Number of Lymph Nodes Examined 2 PATHOLOGIC STAGE CLASSIFICATION (pTNM, AJCC 8th Edition) Reporting of pT, pN, and (when applicable) pM categories is based on information available to the pathologist at the time the report is issued. As per the AJCC (Chapter 1, 8th Ed.) it is the managing physician s responsibility to establish the final pathologic stage based upon all pertinent information, including but potentially not limited to this pathology report. pT Category pT3 pN Category pN1 ADDITIONAL FINDINGS Additional Findings Dysplasia / adenoma Cholelithiasis ~15 lb weight loss overall. Still has drain. Eating small amounts. No nausea or reflux. Gas type pain in RUQ. Having dark, formed stools. Most of the day in a chair right now. TIA 20+ years ago. Temporary lateral visual field cut left eye. Initially treated with Plavix. On low dose ASA now. Current therapy:Xeloda Began 01/12/24. Pt. here today with spouse. Pt. is in her off week. She plans to start her next cycle on Friday. Appetite:Ok Wt. up 3# since last visit. Energy level:Ok. Denies fevers or recent illness. Mouth:denies sores Resp:denies cough or sob Cardiac:denies chest pain/palpitations GI:denies abd pain, n/v, moving bowels regularly :denies dysuria/hematuria Extrem:denies pain Neuro:denies symptoms of neuropathy Skin:denies rashes, +dryness to hands/feet, mild cracking-improved Heme:denies bleeding The ROS is otherwise negative. Past medical history, appointments, medications, allergies reviewed. No changes. EXAM: BP 135/80 Pulse 73 Temp 36.6 C (97.8 F) (Temporal) Wt 69.4 kg (153 lb) SpO2 97% BMI 23.61 kg/m APPEARANCE Well appearing, alert, in no acute distress, well-hydrated, well nourished. HEART RRR with normal S1 and S2, no murmurs LUNG clear to auscultation LYMPH NODES No cervical lymphadenopathy, No supraclavicular lymphadenopathy, and No axillary lymphadenopathy. ABDOMEN bowel sounds normoactive, soft, non-tender EXTREMITIES No edema NEURO Awake, alert and oriented x 3, Normal gait, and No involuntary motions. SKIN dry skin, no erythema or cracking to palms LABS: Latest Ref Rng 03/11/2024 04/02/202404/23/2024 WBC 3.70 - 11.00 k/uL 6.97 7.01 7.25 RBC 3.90 - 5.20 m/uL 3.49 (L) 3.58 (L) 3.16 (L) Hemoglobin 11.5 - 15.5 g/dL 10.8 (L) 11.2 (L) 10.5 (L) Hematocrit 36.0 - 46.0 % 33.6 (L) 34.6 (L) 31.8 (L) MCV 80.0 - 100.0 fL 96.3 96.6 100.6 (H) MCH 26.0 - 34.0 pg 30.9 31.3 33.2 MCHC 30.5 - 36.0 g/dL 32.1 32.4 33.0 RDW-CV 11.5 - 15.0 % 19.9 (H) 21.3 (H) 21.1 (H) Platelet Count 150 - 400 k/uL 230 257 254 MPV 9.0 - 12.7 fL 9.0 8.9 (L) 9.2 Neut% % 44.4 52.4 53.9 Abs Neut (ANC) 1.45 - 7.50 k/uL 3.09 3.67 3.90 Lymph% % 42.5 34.2 30.3 Abs Lymph 1.00 - 4.00 k/uL 2.96 2.40 2.20 Barbour% % 10.3 10.3 12.4 Abs Barbour <0.87 k/uL 0.72 0.72 0.90 (H) Eosin% % 2.3 2.4 1.8 Abs Eosin <0.46 k/uL 0.16 0.17 0.13 Baso% % 0.4 0.4 0.4 Abs Baso <0.11 k/uL 0.03 0.03 0.03 Immature Gran % % 0.1 0.3 1.2 IMMATURE GRANS (ABS) <0.10 k/uL <0.03 <0.03 0.09 NRBC /100 WBC 0.0 0.0 0.0 Absolute nRBC <0.01 k/uL <0.01 <0.01 <0.01 DTYPE Auto Auto Auto CMP: Pending RADIOLOGY: CT chest: Pending CT abd/pelvis: IMPRESSION: No metastatic disease in the abdomen or pelvis. 9.9 cm septated LEFT adnexal cystic lesion. Recommend further evaluation with dedicated pelvic ultrasound. ASSESSMENT/PLAN: 1. Gallbladder cancer (HCC) - ICD9: 156.0, ICD10: C23 Per Dr. 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 -I discussed the pathology with the patient and her . I also discussed the natural history, treated course, and prognosis of the disease as well as the rationale for adjuvant therapy. -Recommended a standard adjuvant course of capecitabine. -I discussed the rationale (based on the BILCAP trial), logistics, potential risks (including but not limited to fatigue, cytopenias, mucositis, diarrhea, nausea and vomiting, hand-foot skin syndrome, infections and the small potential for as a consequence of severe toxicity/complications of therapy), benefits and alternatives, as well as the personnel involved in the administration of capecitabine. I answered her questions in detail and she verbalized understanding and agreed with the recommended therapy. Please see the electronic consent document for details of doses and schedule. Plan: -Labs today including CBC, chemistry panel, hematinics and DPYD/UGT1A1 genotyping panel. -Plan to begin therapy in a few weeks once drain out and she's had some more time for recovery. -Aim for 6 months of treatment. -CTs in about 3 months. - Overall tolerating xeloda well compared to first cycle-no n/v/constipation/diarrhea. - Reviewed CBC/CT abd/pelvis with pt. - CT chest/CMP pending. - Continue current dose of xeloda. - Goal 6 months of treatment pending tolerance. - Continue current medications. - Proceed with next cycle of xeloda on Friday. - US pelvis soon. - Needs [facility] [facility] eval after above. - Follow up @ 9a.m. with CBC/CMP. - Pt. aware to call office with any questions/concerns. The patient indicates understanding of these issues and agrees with the plan. All documentation from previous visit of 04/02/24-Dr. Jose/myself was copied and pasted, documentation has been reviewed and edited as necessary for today's visit. Denice Orozco APRN.INSURANCE PROCESSING CLERK documented in this encounter [facility] 04-20-2024 History of Present illness Narrative [facility] Ref[facility] Assessment Medication(s): Capecitabine Patient's current medication list and adherence status to current therapy were reviewed by Specialty Pharmacy clinical pharmacist to identify any new drug interactions or non-compliance to therapy. Therapy continues to be appropriate for disease, patient response, and medical condition. Verification of therapeutic benefit and effectiveness with current therapy was completed. Adverse events, barriers in adherence, and side effects were assessed and addressed if applicable. Will proceed with refill with no changes in therapy - patient progressing towards achieving therapeutic goals based on medication-specific laboratory parameters, disease state markers and outcomes. Office/provider notes have been reviewed prior to dispensing the medication. 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 Patient confirmed: Yes Med/dose confirmed: Yes Supplies needed: No supplies needed Missed doses: No Estimated days supply on hand: 0 (last dose 04/18) Next cycle/dose due: 04/26/24 Copay amount: 49.6 Copay form of payment: Credit card on file Payment confirmed: Yes Delivery method: FedEx Signature required: No Delivery address: [address] [place] [address] Delivery date: 04/22/24 Questions or concerns for the pharmacist?: No Did you have any side effects believed to be related to this medication, that resulted in hospitalization?: No Current Outpatient Medications on File Prior to Visit Medication Sig ondansetron (ZOFRAN) 8 mg tablet Take 1 tablet by mouth every 8 hours as needed. capecitabine (XELODA) 500 mg tablet Take 3 tablets (1,500 mg) by mouth two times a day with food for 14 days on, followed by 7 days off (21-day cycle) acetaminophen (TYLENOL) 325 mg tablet Take 2 tablets by mouth every 6 hours as needed for pain. aspirin, enteric coated (ASPIRIN, ENTERIC COATED) 81 mg EC tablet Take 81 mg by mouth once daily. lisinopril (ZESTRIL, PRINIVIL) 10 mg tablet Take 10 mg by mouth once daily. atorvastatin (LIPITOR) 20 mg tablet Take 20 mg by mouth once daily. No current facility-administered medications on file prior to visit. [facility] CLINICAL ASSESSMENT - HEMATOLOGY ONCOLOGY V6: Assessment to use: Refill Date of influenza vaccination reminder: 01/01/2024 Date of most recent vaccination assessment: 01/01/2024 Treatment Plan Information: Dx: Gall bladder adenocarcinoma Tx hx: Radical cholecystectomy Tx regimen: Xeloda monotherapy Med: capecitabine (Xeloda) Dose: 1250 mg/m2 x 1.77 m2 = 2212.5 mg BID. Rounded to 1500 mg BID (47.5 % change). d/t [place] population and tolerance Sig: Take 3 tablets (1500 mg) by mouth twice daily with food for 14 days, followed by 7 days off Admin notes: c food, separate by 12 hrs Storage: rm temp Aes: HFS, diarrhea, stomatitis, low appetite, eye irritation Emetic pot: Low Baseline Labs: 12/16/23 - Scr (CrCl 70.8 ml/min), bili, AST, ALT, Hep b screen (triple negative), CBC, DPYD (normal metabolizer) DDI: NONE as of 01/01/24 Est. Tx Plan Start Date: 01/12/2024 Estimated Start Date Info: Tx team confirmed start of cycle on 01/12/24. Est. Estimated Treatment Duration: 6 months or until disease progression or unacceptable toxicity Shelia Machado documented in this encounter [facility] 04-20-2024 Note [facility] 04-19-2024 History of Present illness Narrative Radiology Service Progress Note DATE OF SERVICE: April 19, 2024 TIME: 1:03 PM PATIENT IDENTITY VERIFICATION COMPLETED USING TWO (2) STANDARD IDENTIFIERS: Name and Date of confirmed by patient verbally. FALL SCREENING: Has the patient had 2 falls in the last year or 1 fall with injury or currently using an Ambulatory Assistive Device (Walker, Cane, Wheelchair, Crutches, etc.)? No PATIENT GENDER DATA: Assigned female at . status: : No status: NO. PATIENT RELEVANT IMPLANT DATA REVIEWED: Yes PATIENT PRESENTS WITH AN IMPLANTABLE OR ATTACHED STARS COORDINATOR: No ALLERGIES: Reviewed and unchanged CONTRAST ALLERGY: NO. EXAM: CT -CONTRAST INDUCED NEPHROPATHY RISK FACTORS: Patient age > 60 years CREATININE: Creatinine Date Value Ref Range Status 04/02/2024 0.71 0.58 - 0.96 mg/dL Final 03/11/2024 0.73 0.58 - 0.96 mg/dL Final 02/20/2024 0.77 0.58 - 0.96 mg/dL Final Estimated Glomerular Filtration Rate Date Value Ref Range Status 04/02/2024 87 >=60 mL/min/1.73m Final Comment: Estimated Glomerular Filtration Rate (eGFR) is calculated using the 2020 CKD-EPI creatinine equation. This equation utilizes serum creatinine, sex, and age as parameters. The creatinine assay has traceable calibration to isotope dilution-mass spectrometry. Refer to KDIGO guidelines for clinical interpretation. In patients with unstable renal function, e.g. those with acute kidney injury, the eGFR may not accurately reflect actual GFR. P.O.C.T. RESULTS: POC done: Yes, See Lab Tab April 19, 2024 TREATMENT: N/A PERIPHERAL IV DATA: Ambulatory: A peripheral IV was started in the Left antecubital site with a Angio cath: 22 gauge. RADIOLOGY DEPARTMENT: CT; Exam(s) Completed: Chest Abdomen Pelvis SIGNATURE: RT Tiago(R) PATIENT NAME: Marie Blair DATE: April 19, 2024 TIME: 1:03 PM documented in this encounter [facility] 04-19-2024 Note [facility] 04-02-2024 Note [facility] 04-02-2024 History of Present illness Narrative Chief Complaint Patient presents with: Established Patient HPI: Marie Blair is a 78 year old female who presents here today for follow up gallbladder cancer. Per Dr. Jose's previous note: H/o Began having dull, continuous RUQ pain about 2 months ago. Had an ultrasound on 11/07/2023. Liver was noted to be 14.3 cm in length. Homogeneous echotexture without focal lesion. No intrahepatic ductal dilation. CBD: 7 mm in diameter. Gallbladder demonstrated shadowing gallstones with heterogeneous appearance. Gallbladder wall was 5 mm thick. No pericholecystic fluid. Sonographic Chin sign negative. Visualized proximal portion of the pancreas is unremarkable. CT scan on 11/12/2023. Findings were suspicious for acute cholecystitis. The gallbladder was noted to be contracted with multiple gallstones and wall thickening and stranding in the fat surrounding the fundus of the gallbladder worrisome for acute cholecystitis. There was mild intrahepatic biliary ductal dilation. She is admitted to [facility] on 11/18/2023. Started on antibiotics. Transferred to [facility]. Underwent MRCP. 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 Transferred to [facility] On 11/19. ERCP on 11/20. Failed attempt to cannulate the CBD. Repeat ERCP with stent placed on 11/23. Underwent radical cholecystectomy with en bloc partial duodenectomy for gallbladder adenocarcinoma 11/26/2023 with postop biliary leak from cystic duct stump managed with a drain. Pathology: FINAL DIAGNOSIS A. Small bowel, duodenal margin, biopsy: - Benign duodenal tissues. B. Soft tissue, ventral fat pad, excision: - Benign fibroadipose tissue. C. Lymph node, periportal, excision: - Metastatic carcinoma in one lymph node (03/31). D. Lymph node, hepatic artery, excision: - One benign lymph node (0). E. Cystic duct margin, excision: - Negative for malignancy. F. Gallbladder, liver (segments 4b-5) and duodenum (2nd portion), en bloc resection: - Poorly differentiated adenocarcinoma of gallbladder, arising in a background of high-grade dysplasia (see comment). - Tumor directly invades through gallbladder wall into hepatic parenchyma and duodenal wall as well as pericholecystic fibroadipose with microscopic features of pericholecystic abscess. - Focal serosal involvement is identified. - Margins negative for high-grade dysplasia and malignancy. - Positive for lymphovascular invasion. - Non-neoplastic hepatic parenchyma with no significant pathologic changes. Diagnosis Comment Block for additional Biomarkers/Molecular studies F6 Synoptic Report GALLBLADDER 8th Edition - Protocol posted: 09/27/2020GALLBLADDER: RESECTION/CHOLECYSTECTOMY - All Specimens SPECIMEN Procedure En bloc resection of gallbladder, liver segments 4b-5 and second portion of duodenum TUMOR Tumor Site Fundus Body Histologic Type Adenocarcinoma, biliary type Histologic Grade G3, poorly differentiated Tumor Size Greatest Dimension (Centimeters): 4.8 cm Additional Dimension (Centimeters) 3.4 cm 2.3 cm Tumor Extent Directly invades other adjacent organ(s) or structure(s) Duodenum Lymphovascular Invasion Present Perineural Invasion Not identified MARGINS Margin Status for Invasive Carcinoma All margins negative for invasive carcinoma Distance from Invasive Carcinoma to Cystic Duct Margin 1.3 cm Distance from Invasive Carcinoma to Liver Parenchymal Margin 1.5 cm Margin Status for Intraepithelial Neoplasia All margins negative for high-grade intraepithelial neoplasia Margin Comment Invasive adenocarcinoma is 0.2 cm away from the duodenal resection margin. REGIONAL LYMPH NODES Regional Lymph Node Status Tumor present in regional lymph node(s) Number of Lymph Nodes with Tumor 1 Number of Lymph Nodes Examined 2 PATHOLOGIC STAGE CLASSIFICATION (pTNM, AJCC 8th Edition) Reporting of pT, pN, and (when applicable) pM categories is based on information available to the pathologist at the time the report is issued. As per the AJCC (Chapter 1, 8th Ed.) it is the managing physician s responsibility to establish the final pathologic stage based upon all pertinent information, including but potentially not limited to this pathology report. pT Category pT3 pN Category pN1 ADDITIONAL FINDINGS Additional Findings Dysplasia / adenoma Cholelithiasis ~15 lb weight loss overall. Still has drain. Eating small amounts. No nausea or reflux. Gas type pain in RUQ. Having dark, formed stools. Most of the day in a chair right now. TIA 20+ years ago. Temporary lateral visual field cut left eye. Initially treated with Plavix. On low dose ASA now. Current therapy:Xeloda Began 01/12/24. Pt. here today with spouse. Pt. is in her off week. She plans to start her next cycle on Friday. Appetite:Ok Wt. up 3# since last visit. Energy level:Ok. Denies fevers. Mouth:denies sores Resp:denies cough or sob Cardiac:denies chest pain/palpitations GI:denies abd pain, n/v, moving bowels regularly :denies dysuria/hematuria Extrem:denies pain Neuro:denies symptoms of neuropathy Skin:denies rashes, +dryness to hands/feet, mild cracking-improved Heme:denies bleeding The ROS is otherwise negative. Past medical history, appointments, medications, allergies reviewed. No changes. EXAM: BP 125/71 Pulse 74 Temp 36.7 C (98.1 F) (Temporal) Wt 68.1 kg (150 lb 2.1 oz) SpO2 99% BMI 23.17 kg/m APPEARANCE Well appearing, alert, in no acute distress, well-hydrated, well nourished. MOUTH no mucositis/thrush HEART RRR with normal S1 and S2, no murmurs LUNG clear to auscultation LYMPH NODES No cervical lymphadenopathy, No supraclavicular lymphadenopathy, and No axillary lymphadenopathy. ABDOMEN bowel sounds normoactive, soft, non-tender EXTREMITIES No edema NEURO Awake, alert and oriented x 3, Normal gait, and No involuntary motions. SKIN dry skin to palms ASSESSMENT/PLAN: 1. Gallbladder cancer (HCC) - ICD9: 156.0, ICD10: C23 Per Dr. 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 -I discussed the pathology with the patient and her . I also discussed the natural history, treated course, and prognosis of the disease as well as the rationale for adjuvant therapy. -Recommended a standard adjuvant course of capecitabine. -I discussed the rationale (based on the BILCAP trial), logistics, potential risks (including but not limited to fatigue, cytopenias, mucositis, diarrhea, nausea and vomiting, hand-foot skin syndrome, infections and the small potential for as a consequence of severe toxicity/complications of therapy), benefits and alternatives, as well as the personnel involved in the administration of capecitabine. I answered her questions in detail and she verbalized understanding and agreed with the recommended therapy. Please see the electronic consent document for details of doses and schedule. Plan: -Labs today including CBC, chemistry panel, hematinics and DPYD/UGT1A1 genotyping panel. -Plan to begin therapy in a few weeks once drain out and she's had some more time for recovery. -Aim for 6 months of treatment. -CTs in about 3 months. - Overall tolerated this cycle of xeloda better than last cycle-no n/v/constipation this cycle. - Reviewed CBC/CMP with pt. - Continue current dose of xeloda. - Goal 6 months of treatment pending tolerance. - Continue current medications. - CT's the week of . - Proceed with next cycle of xeloda on Friday. - Follow up Apr 23 @ 8:30am with CBC/CMP. - Pt. aware to call office with any questions/concerns. The patient indicates understanding of these issues and agrees with the plan. All documentation from previous visit of 03/11/24-Dr. Jose/myself was copied and pasted, documentation has been reviewed and edited as necessary for today's visit. Denice Orozco APRN.DANIELLA documented in this encounter [facility] 03-29-2024 History of Present illness Narrative [facility] Refill Assessment Medication(s): Capecitbaine Patient's current medication list and adherence status to current therapy were reviewed by Specialty Pharmacy clinical pharmacist to identify any new drug interactions or non-compliance to therapy. Therapy continues to be appropriate for disease, patient response, and medical condition. Verification of therapeutic benefit and effectiveness with current therapy was completed. Adverse events, barriers in adherence, and side effects were assessed and addressed if applicable. Will proceed with refill with no changes in therapy - patient progressing towards achieving therapeutic goals based on medication-specific laboratory parameters, disease state markers and outcomes. Office/provider notes have been reviewed prior to dispensing the medication. 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 Patient confirmed: Yes Med/dose confirmed: Yes Supplies needed: No supplies needed Missed doses: No Estimated days supply on hand: 0 Next cycle/dose due: 04/05/24 Copay amount: 15.55 Copay form of payment: Credit card on file Payment confirmed: Yes Delivery method: [employer] Signature required: Waived on patient request Delivery address: [address] [place] [address] Delivery date: 04/02/24 Questions or concerns for the pharmacist?: No Did you have any side effects believed to be related to this medication, that resulted in hospitalization?: No Current Outpatient Medications on File Prior to Visit Medication Sig ondansetron (ZOFRAN) 8 mg tablet Take 1 tablet by mouth every 8 hours as needed. capecitabine (XELODA) 500 mg tablet Take 3 tablets (1,500 mg) by mouth two times a day with food for 14 days on, followed by 7 days off (21-day cycle) acetaminophen (TYLENOL) 325 mg tablet Take 2 tablets by mouth every 6 hours as needed for pain. aspirin, enteric coated (ASPIRIN, ENTERIC COATED) 81 mg EC tablet Take 81 mg by mouth once daily. lisinopril (ZESTRIL, PRINIVIL) 10 mg tablet Take 10 mg by mouth once daily. atorvastatin (LIPITOR) 20 mg tablet Take 20 mg by mouth once daily. No current facility-administered medications on file prior to visit. [facility] CLINICAL ASSESSMENT - HEMATOLOGY ONCOLOGY V6: Assessment to use: Refill Date of influenza vaccination reminder: 01/01/2024 Date of most recent vaccination assessment: 01/01/2024 Treatment Plan Information: Dx: Gall bladder adenocarcinoma Tx hx: Radical cholecystectomy Tx regimen: Xeloda monotherapy Med: capecitabine (Xeloda) Dose: 1250 mg/m2 x 1.77 m2 = 2212.5 mg BID. Rounded to 1500 mg BID (47.5 % change). d/t [place] population and tolerance Sig: Take 3 tablets (1500 mg) by mouth twice daily with food for 14 days, followed by 7 days off Admin notes: c food, separate by 12 hrs Storage: rm temp Aes: HFS, diarrhea, stomatitis, low appetite, eye irritation Emetic pot: Low Baseline Labs: 12/16/23 - Scr (CrCl 70.8 ml/min), bili, AST, ALT, Hep b screen (triple negative), CBC, DPYD (normal metabolizer) DDI: NONE as of 01/01/24 Est. Tx Plan Start Date: 01/12/2024 Estimated Start Date Info: Tx team confirmed start of cycle on 01/12/24. Est. Estimated Treatment Duration: 6 months or until disease progression or unacceptable toxicity Dominga Guerrero documented in this encounter [facility] 03-29-2024 Note [facility] 03-11-2024 Note [facility] 03-11-2024 History of Present illness Narrative Chief Complaint Patient presents with: Established Patient HPI: Marie Blair is a 78 year old female who presents here today for follow up gallbladder cancer. Per Dr. Jose's previous note: H/o Began having dull, continuous RUQ pain about 2 months ago. Had an ultrasound on 11/07/2023. Liver was noted to be 14.3 cm in length. Homogeneous echotexture without focal lesion. No intrahepatic ductal dilation. CBD: 7 mm in diameter. Gallbladder demonstrated shadowing gallstones with heterogeneous appearance. Gallbladder wall was 5 mm thick. No pericholecystic fluid. Sonographic Chin sign negative. Visualized proximal portion of the pancreas is unremarkable. CT scan on 11/12/2023. Findings were suspicious for acute cholecystitis. The gallbladder was noted to be contracted with multiple gallstones and wall thickening and stranding in the fat surrounding the fundus of the gallbladder worrisome for acute cholecystitis. There was mild intrahepatic biliary ductal dilation. She is admitted to [facility] on 11/18/2023. Started on antibiotics. Transferred to [facility]. Underwent MRCP. 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 Transferred to [facility] On 11/19. ERCP on 11/20. Failed attempt to cannulate the CBD. Repeat ERCP with stent placed on 11/23. Underwent radical cholecystectomy with en bloc partial duodenectomy for gallbladder adenocarcinoma 11/26/2023 with postop biliary leak from cystic duct stump managed with a drain. Pathology: FINAL DIAGNOSIS A. Small bowel, duodenal margin, biopsy: - Benign duodenal tissues. B. Soft tissue, ventral fat pad, excision: - Benign fibroadipose tissue. C. Lymph node, periportal, excision: - Metastatic carcinoma in one lymph node (1/1). D. Lymph node, hepatic artery, excision: - One benign lymph node (0/1). E. Cystic duct margin, excision: - Negative for malignancy. F. Gallbladder, liver (segments 4b-5) and duodenum (2nd portion), en bloc resection: - Poorly differentiated adenocarcinoma of gallbladder, arising in a background of high-grade dysplasia (see comment). - Tumor directly invades through gallbladder wall into hepatic parenchyma and duodenal wall as well as pericholecystic fibroadipose with microscopic features of pericholecystic abscess. - Focal serosal involvement is identified. - Margins negative for high-grade dysplasia and malignancy. - Positive for lymphovascular invasion. - Non-neoplastic hepatic parenchyma with no significant pathologic changes. Diagnosis Comment Block for additional Biomarkers/Molecular studies F6 Synoptic Report GALLBLADDER 8th Edition - Protocol posted: 09/27/2020GALLBLADDER: RESECTION/CHOLECYSTECTOMY - All Specimens SPECIMEN Procedure En bloc resection of gallbladder, liver segments 4b-5 and second portion of duodenum TUMOR Tumor Site Fundus Body Histologic Type Adenocarcinoma, biliary type Histologic Grade G3, poorly differentiated Tumor Size Greatest Dimension (Centimeters): 4.8 cm Additional Dimension (Centimeters) 3.4 cm 2.3 cm Tumor Extent Directly invades other adjacent organ(s) or structure(s) Duodenum Lymphovascular Invasion Present Perineural Invasion Not identified MARGINS Margin Status for Invasive Carcinoma All margins negative for invasive carcinoma Distance from Invasive Carcinoma to Cystic Duct Margin 1.3 cm Distance from Invasive Carcinoma to Liver Parenchymal Margin 1.5 cm Margin Status for Intraepithelial Neoplasia All margins negative for high-grade intraepithelial neoplasia Margin Comment Invasive adenocarcinoma is 0.2 cm away from the duodenal resection margin. REGIONAL LYMPH NODES Regional Lymph Node Status Tumor present in regional lymph node(s) Number of Lymph Nodes with Tumor 1 Number of Lymph Nodes Examined 2 PATHOLOGIC STAGE CLASSIFICATION (pTNM, AJCC 8th Edition) Reporting of pT, pN, and (when applicable) pM categories is based on information available to the pathologist at the time the report is issued. As per the AJCC (Chapter 1, 8th Ed.) it is the managing physician s responsibility to establish the final pathologic stage based upon all pertinent information, including but potentially not limited to this pathology report. pT Category pT3 pN Category pN1 ADDITIONAL FINDINGS Additional Findings Dysplasia / adenoma Cholelithiasis ~15 lb weight loss overall. Still has drain. Eating small amounts. No nausea or reflux. Gas type pain in RUQ. Having dark, formed stools. Most of the day in a chair right now. TIA 20+ years ago. Temporary lateral visual field cut left eye. Initially treated with Plavix. On low dose ASA now. Current therapy:Xeloda Began 01/12/24. Pt. here today with spouse. Pt. is in her off week. She plans to start her next cycle on Friday. Appetite:Ok Wt. up 4# over past month. Energy level:Ok. Denies fevers. Mouth:denies sores Resp:denies cough or sob Cardiac:denies chest pain/palpitations GI:denies abd pain, n/v, moving bowels regularly :denies dysuria/hematuria Extrem:denies pain Neuro:denies symptoms of neuropathy Skin:denies rashes, +dryness to hands/feet, mild cracking to thumb-now improving Heme:denies bleeding The ROS is otherwise negative. Past medical history, appointments, medications, allergies reviewed. No changes. EXAM: BP 133/73 Pulse 82 Temp 36.5 C (97.7 F) (Temporal) Wt 67 kg (147 lb 11.3 oz) SpO2 99% BMI 22.79 kg/m APPEARANCE Well appearing, alert, in no acute distress, well-hydrated, well nourished. HEART RRR with normal S1 and S2, no murmurs LUNG clear to auscultation LYMPH NODES No cervical lymphadenopathy, No supraclavicular lymphadenopathy, and No axillary lymphadenopathy. ABDOMEN bowel sounds normoactive, soft, non-tender EXTREMITIES No edema NEURO Awake, alert and oriented x 3, Normal gait, and No involuntary motions. SKIN no rash, +dry skin to palms, R thumb mild crack, no erythema LABS: Latest Ref Rng 12/16/2023 02/20/2024 03/11/2024 WBC 3.70 - 11.00 k/uL 6.96 6.59 6.97 RBC 3.90 - 5.20 m/uL 4.19 3.75 (L) 3.49 (L) Hemoglobin 11.5 - 15.5 g/dL 11.9 11.3 (L) 10.8 (L) Hematocrit 36.0 - 46.0 % 38.6 35.0 (L) 33.6 (L) MCV 80.0 - 100.0 fL 92.1 93.3 96.3 MCH 26.0 - 34.0 pg 28.4 30.1 30.9 MCHC 30.5 - 36.0 g/dL 30.8 32.3 32.1 RDW-CV 11.5 - 15.0 % 16.5 (H) 17.8 (H) 19.9 (H) Platelet Count 150 - 400 k/uL 697 (H) 280 230 MPV 9.0 - 12.7 fL 10.1 8.4 (L) 9.0 Neut% % 52.7 34.3 44.4 Abs Neut (ANC) 1.45 - 7.50 k/uL 3.67 2.26 3.09 Lymph% % 31.9 50.2 42.5 Abs Lymph 1.00 - 4.00 k/uL 2.22 3.31 2.96 Barbour% % 13.4 13.2 10.3 Abs Barbour <0.87 k/uL 0.93 (H) 0.87 (H) 0.72 Eosin% % 0.9 1.4 2.3 Abs Eosin <0.46 k/uL 0.06 0.09 0.16 Baso% % 0.7 0.6 0.4 Abs Baso <0.11 k/uL 0.05 0.04 0.03 Immature Gran % % 0.4 0.3 0.1 IMMATURE GRANS (ABS) <0.10 k/uL 0.03 <0.03 <0.03 NRBC /100 WBC 0.0 0.0 0.0 Absolute nRBC <0.01 k/uL <0.01 <0.01 <0.01 DTYPE Auto Auto Auto Latest Ref Rng 12/16/2023 02/20/2024 03/11/2024 Protein, Total 6.3 - 8.0 g/dL 8.2 (H) 6.7 6.6 Albumin 3.9 - 4.9 g/dL 3.8 (L) 3.9 4.1 Calcium 8.5 - 10.2 mg/dL 10.2 9.9 9.9 Bilirubin, Total 0.2 - 1.3 mg/dL 0.3 0.3 0.4 Alkaline Phosphatase 34 - 123 U/L 116 77 75 AST 13 - 35 U/L 26 11 (L) 12 (L) ALT 7 - 38 U/L 19 7 6 (L) Glucose 74 - 99 mg/dL 110 (H) 113 (H) 100 (H) BUN 7 - 21 mg/dL 15 18 19 Creatinine 0.58 - 0.96 mg/dL 0.68 0.77 0.73 Sodium 136 - 144 mmol/L 138 139 144 Potassium 3.7 - 5.1 mmol/L 4.6 3.7 3.7 Chloride 98 - 107 mmol/L 99 104 107 CO2 22 - 30 mmol/L 25 22 26 Anion Gap 8 - 15 mmol/L 14 13 11 eGFR >=60 mL/min/1.73m 89 79 84 ASSESSMENT/PLAN: 1. Gallbladder cancer (HCC) - ICD9: 156.0, ICD10: C23 Per Dr. 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 -I discussed the pathology with the patient and her . I also discussed the natural history, treated course, and prognosis of the disease as well as the rationale for adjuvant therapy. -Recommended a standard adjuvant course of capecitabine. -I discussed the rationale (based on the BILCAP trial), logistics, potential risks (including but not limited to fatigue, cytopenias, mucositis, diarrhea, nausea and vomiting, hand-foot skin syndrome, infections and the small potential for as a consequence of severe toxicity/complications of therapy), benefits and alternatives, as well as the personnel involved in the administration of capecitabine. I answered her questions in detail and she verbalized understanding and agreed with the recommended therapy. Please see the electronic consent document for details of doses and schedule. Plan: -Labs today including CBC, chemistry panel, hematinics and DPYD/UGT1A1 genotyping panel. -Plan to begin therapy in a few weeks once drain out and she's had some more time for recovery. -Aim for 6 months of treatment. -CTs in about 3 months. - Overall tolerated this cycle of xeloda better than last cycle-no n/v/constipation this cycle. - Reviewed CBC/CMP with pt. - Continue current dose of xeloda. - Goal 6 months of treatment pending tolerance. - Continue current medications. - CT's 3 months from xeloda start. Plan for the week of . - Proceed with next cycle of xeloda on Friday. - Follow up Apr 02 @ 8am with CBC/CMP. - Pt. aware to call office with any questions/concerns. The patient indicates understanding of these issues and agrees with the plan. All documentation from previous visit of 02/20/24-Dr. Jose/myself was copied and pasted, documentation has been reviewed and edited as necessary for today's visit. Denice Orozco APRN.DANIELLA documented in this encounter [facility] 03-08-2024 History of Present illness Narrative [facility] Refill Assessment Medication(s): Capecitabine Patient's current medication list and adherence status to current therapy were reviewed by Specialty Pharmacy clinical pharmacist to identify any new drug interactions or non-compliance to therapy. Therapy continues to be appropriate for disease, patient response, and medical condition. Verification of therapeutic benefit and effectiveness with current therapy was completed. Adverse events, barriers in adherence, and side effects were assessed and addressed if applicable. Will proceed with refill with no changes in therapy - patient progressing towards achieving therapeutic goals based on medication-specific laboratory parameters, disease state markers and outcomes. Office/provider notes have been reviewed prior to dispensing the medication. 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 Patient confirmed: Yes Med/dose confirmed: Yes Estimated days supply on hand: 0 (Last dose 03/08) Next cycle/dose due: 03/15/24 Copay amount: 0 Copay form of payment: Credit card on file Payment confirmed: Yes Delivery method: FedEx Signature required: No Delivery address: [address] [place] [address] Delivery date: 03/13/24 Questions or concerns for the pharmacist?: No Did you have any side effects believed to be related to this medication, that resulted in hospitalization?: No Current Outpatient Medications on File Prior to Visit Medication Sig ondansetron (ZOFRAN) 8 mg tablet Take 1 tablet by mouth every 8 hours as needed. capecitabine (XELODA) 500 mg tablet Take 3 tablets (1,500 mg) by mouth two times a day with food for 14 days on, followed by 7 days off (21-day cycle) acetaminophen (TYLENOL) 325 mg tablet Take 2 tablets by mouth every 6 hours as needed for pain. aspirin, enteric coated (ASPIRIN, ENTERIC COATED) 81 mg EC tablet Take 81 mg by mouth once daily. lisinopril (ZESTRIL, PRINIVIL) 10 mg tablet Take 10 mg by mouth once daily. atorvastatin (LIPITOR) 20 mg tablet Take 20 mg by mouth once daily. No current facility-administered medications on file prior to visit. [facility] CLINICAL ASSESSMENT - HEMATOLOGY ONCOLOGY V6: Assessment to use: Refill Date of influenza vaccination reminder: 01/01/2024 Date of most recent vaccination assessment: 01/01/2024 Treatment Plan Information: Dx: Gall bladder adenocarcinoma Tx hx: Radical cholecystectomy Tx regimen: Xeloda monotherapy Med: capecitabine (Xeloda) Dose: 1250 mg/m2 x 1.77 m2 = 2212.5 mg BID. Rounded to 1500 mg BID (47.5 % change). d/t [place] population and tolerance Sig: Take 3 tablets (1500 mg) by mouth twice daily with food for 14 days, followed by 7 days off Admin notes: c food, separate by 12 hrs Storage: rm temp Aes: HFS, diarrhea, stomatitis, low appetite, eye irritation Emetic pot: Low Baseline Labs: 12/16/23 - Scr (CrCl 70.8 ml/min), bili, AST, ALT, Hep b screen (triple negative), CBC, DPYD (normal metabolizer) DDI: NONE as of 01/01/24 Est. Tx Plan Start Date: 01/12/2024 Estimated Start Date Info: Tx team confirmed start of cycle on 01/12/24. Est. Estimated Treatment Duration: 6 months or until disease progression or unacceptable toxicity Shelia Machado documented in this encounter [facility] 03-08-2024 Note [facility] 02-20-2024 Note [facility] 02-20-2024 History of Present illness Narrative Chief Complaint Patient presents with: Established Patient HPI: Marie Blair is a 78 year old female who presents here today for follow up gallbladder cancer. Per Dr. Jose's previous note: H/o Began having dull, continuous RUQ pain about 2 months ago. Had an ultrasound on 11/07/2023. Liver was noted to be 14.3 cm in length. Homogeneous echotexture without focal lesion. No intrahepatic ductal dilation. CBD: 7 mm in diameter. Gallbladder demonstrated shadowing gallstones with heterogeneous appearance. Gallbladder wall was 5 mm thick. No pericholecystic fluid. Sonographic Chin sign negative. Visualized proximal portion of the pancreas is unremarkable. CT scan on 11/12/2023. Findings were suspicious for acute cholecystitis. The gallbladder was noted to be contracted with multiple gallstones and wall thickening and stranding in the fat surrounding the fundus of the gallbladder worrisome for acute cholecystitis. There was mild intrahepatic biliary ductal dilation. She is admitted to [facility] on 11/18/2023. Started on antibiotics. Transferred to [facility]. Underwent MRCP. 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 Transferred to [facility] On 11/19. ERCP on 11/20. Failed attempt to cannulate the CBD. Repeat ERCP with stent placed on 11/23. Underwent radical cholecystectomy with en bloc partial duodenectomy for gallbladder adenocarcinoma 11/26/2023 with postop biliary leak from cystic duct stump managed with a drain. Pathology: FINAL DIAGNOSIS A. Small bowel, duodenal margin, biopsy: - Benign duodenal tissues. B. Soft tissue, ventral fat pad, excision: - Benign fibroadipose tissue. C. Lymph node, periportal, excision: - Metastatic carcinoma in one lymph node (1/1). D. Lymph node, hepatic artery, excision: - One benign lymph node (0/1). E. Cystic duct margin, excision: - Negative for malignancy. F. Gallbladder, liver (segments 4b-5) and duodenum (2nd portion), en bloc resection: - Poorly differentiated adenocarcinoma of gallbladder, arising in a background of high-grade dysplasia (see comment). - Tumor directly invades through gallbladder wall into hepatic parenchyma and duodenal wall as well as pericholecystic fibroadipose with microscopic features of pericholecystic abscess. - Focal serosal involvement is identified. - Margins negative for high-grade dysplasia and malignancy. - Positive for lymphovascular invasion. - Non-neoplastic hepatic parenchyma with no significant pathologic changes. Diagnosis Comment Block for additional Biomarkers/Molecular studies F6 Synoptic Report GALLBLADDER 8th Edition - Protocol posted: 09/27/2020GALLBLADDER: RESECTION/CHOLECYSTECTOMY - All Specimens SPECIMEN Procedure En bloc resection of gallbladder, liver segments 4b-5 and second portion of duodenum TUMOR Tumor Site Fundus Body Histologic Type Adenocarcinoma, biliary type Histologic Grade G3, poorly differentiated Tumor Size Greatest Dimension (Centimeters): 4.8 cm Additional Dimension (Centimeters) 3.4 cm 2.3 cm Tumor Extent Directly invades other adjacent organ(s) or structure(s) Duodenum Lymphovascular Invasion Present Perineural Invasion Not identified MARGINS Margin Status for Invasive Carcinoma All margins negative for invasive carcinoma Distance from Invasive Carcinoma to Cystic Duct Margin 1.3 cm Distance from Invasive Carcinoma to Liver Parenchymal Margin 1.5 cm Margin Status for Intraepithelial Neoplasia All margins negative for high-grade intraepithelial neoplasia Margin Comment Invasive adenocarcinoma is 0.2 cm away from the duodenal resection margin. REGIONAL LYMPH NODES Regional Lymph Node Status Tumor present in regional lymph node(s) Number of Lymph Nodes with Tumor 1 Number of Lymph Nodes Examined 2 PATHOLOGIC STAGE CLASSIFICATION (pTNM, AJCC 8th Edition) Reporting of pT, pN, and (when applicable) pM categories is based on information available to the pathologist at the time the report is issued. As per the AJCC (Chapter 1, 8th Ed.) it is the managing physician s responsibility to establish the final pathologic stage based upon all pertinent information, including but potentially not limited to this pathology report. pT Category pT3 pN Category pN1 ADDITIONAL FINDINGS Additional Findings Dysplasia / adenoma Cholelithiasis ~15 lb weight loss overall. Still has drain. Eating small amounts. No nausea or reflux. Gas type pain in RUQ. Having dark, formed stools. Most of the day in a chair right now. TIA 20+ years ago. Temporary lateral visual field cut left eye. Initially treated with Plavix. On low dose ASA now. Pt. here today with spouse. Pt. in the end of her off week. She plans to start her next cycle on Friday. Appetite:Ok Wt. up 3# over past month. Energy level:Alright. Denies fevers. Mouth:denies sores Resp:denies cough or sob Cardiac:denies chest pain/palpitations GI:denies abd pain, n/v, moving bowels regularly :denies dysuria/hematuria Extrem:denies pain Neuro:denies symptoms of neuropathy Skin:denies rashes, no HFS Heme:denies bleeding The ROS is otherwise negative. Past medical history, appointments, medications, allergies reviewed. No changes. EXAM: BP 116/74 Pulse 87 Temp 36.3 C (97.4 F) (Temporal) Wt 65.1 kg (143 lb 8.3 oz) SpO2 100% BMI 22.15 kg/m APPEARANCE Well appearing, alert, in no acute distress, well-hydrated, well nourished. HEART RRR with normal S1 and S2, no murmurs LUNG clear to auscultation LYMPH NODES No cervical lymphadenopathy, No supraclavicular lymphadenopathy, and No axillary lymphadenopathy. ABDOMEN bowel sounds normoactive, soft, non-tender EXTREMITIES No edema NEURO Awake, alert and oriented x 3, Normal gait, and No involuntary motions. SKIN Skin color, texture, turgor normal, no suspicious rashes or lesions LABS: Latest Ref Rng 12/16/2023 01/30/2024 02/20/2024 WBC 3.70 - 11.00 k/uL 6.96 7.33 6.59 RBC 3.90 - 5.20 m/uL 4.19 3.89 (L) 3.75 (L) Hemoglobin 11.5 - 15.5 g/dL 11.9 11.2 (L) 11.3 (L) Hematocrit 36.0 - 46.0 % 38.6 36.0 35.0 (L) MCV 80.0 - 100.0 fL 92.1 92.5 93.3 MCH 26.0 - 34.0 pg 28.4 28.8 30.1 MCHC 30.5 - 36.0 g/dL 30.8 31.1 32.3 RDW-CV 11.5 - 15.0 % 16.5 (H) 15.8 (H) 17.8 (H) Platelet Count 150 - 400 k/uL 697 (H) 357 280 MPV 9.0 - 12.7 fL 10.1 9.5 8.4 (L) Neut% % 52.7 47.2 34.3 Abs Neut (ANC) 1.45 - 7.50 k/uL 3.67 3.45 2.26 Lymph% % 31.9 41.7 50.2 Abs Lymph 1.00 - 4.00 k/uL 2.22 3.06 3.31 Barbour% % 13.4 9.5 13.2 Abs Barbour <0.87 k/uL 0.93 (H) 0.70 0.87 (H) Eosin% % 0.9 0.8 1.4 Abs Eosin <0.46 k/uL 0.06 0.06 0.09 Baso% % 0.7 0.4 0.6 Abs Baso <0.11 k/uL 0.05 0.03 0.04 Immature Gran % % 0.4 0.4 0.3 IMMATURE GRANS (ABS) <0.10 k/uL 0.03 0.03 <0.03 NRBC /100 WBC 0.0 0.0 0.0 Absolute nRBC <0.01 k/uL <0.01 <0.01 <0.01 DTYPE Auto Auto Auto Latest Ref Rng 12/16/2023 01/30/2024 02/20/2024 Protein, Total 6.3 - 8.0 g/dL 8.2 (H) 6.6 6.7 Albumin 3.9 - 4.9 g/dL 3.8 (L) 3.8 (L) 3.9 Calcium 8.5 - 10.2 mg/dL 10.2 9.4 9.9 Bilirubin, Total 0.2 - 1.3 mg/dL 0.3 0.4 0.3 Alkaline Phosphatase 34 - 123 U/L 116 62 77 AST 13 - 35 U/L 26 20 11 (L) ALT 7 - 38 U/L 19 12 7 Glucose 74 - 99 mg/dL 110 (H) 104 (H) 113 (H) BUN 7 - 21 mg/dL 15 19 18 Creatinine 0.58 - 0.96 mg/dL 0.68 0.70 0.77 Sodium 136 - 144 mmol/L 138 136 139 Potassium 3.7 - 5.1 mmol/L 4.6 4.6 3.7 Chloride 98 - 107 mmol/L 99 101 104 CO2 22 - 30 mmol/L 25 24 22 Anion Gap 8 - 15 mmol/L 14 11 13 eGFR >=60 mL/min/1.73m 89 89 79 ASSESSMENT/PLAN: 1. Gallbladder cancer (HCC) - ICD9: 156.0, ICD10: C23 Per Dr. 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 -I discussed the pathology with the patient and her . I also discussed the natural history, treated course, and prognosis of the disease as well as the rationale for adjuvant therapy. -Recommended a standard adjuvant course of capecitabine. -I discussed the rationale (based on the BILCAP trial), logistics, potential risks (including but not limited to fatigue, cytopenias, mucositis, diarrhea, nausea and vomiting, hand-foot skin syndrome, infections and the small potential for as a consequence of severe toxicity/complications of therapy), benefits and alternatives, as well as the personnel involved in the administration of capecitabine. I answered her questions in detail and she verbalized understanding and agreed with the recommended therapy. Please see the electronic consent document for details of doses and schedule. Plan: -Labs today including CBC, chemistry panel, hematinics and DPYD/UGT1A1 genotyping panel. -Plan to begin therapy in a few weeks once drain out and she's had some more time for recovery. -Aim for 6 months of treatment. -CTs in about 3 months. - Overall tolerated this cycle of xeloda better than last cycle-no n/v/constipation this cycle. - Reviewed CBC/CMP with pt. - Continue current dose of xeloda. - Goal 6 months of treatment pending tolerance. - Continue current medications. - CT's 3 months from xeloda start. - Proceed with next cycle of xeloda on Friday. - Follow up @ 9am with CBC/CMP. - Pt. aware to call office with any questions/concerns. The patient indicates understanding of these issues and agrees with the plan. All documentation from previous visit of 01/30/24-Dr. Jose/myself was copied and pasted, documentation has been reviewed and edited as necessary for today's visit. Denice Orozco APRN.DANIELLA documented in this encounter [facility] 02-17-2024 History of Present illness Narrative [facility] Assessment Medication(s): Capecitabine Patient's current medication list and adherence status to current therapy were reviewed by Specialty Pharmacy clinical pharmacist to identify any new drug interactions or non-compliance to therapy. Therapy continues to be appropriate for disease, patient response, and medical condition. Verification of therapeutic benefit and effectiveness with current therapy was completed. Adverse events, barriers in adherence, and side effects were assessed and addressed if applicable. Will proceed with refill with no changes in therapy - patient progressing towards achieving therapeutic goals based on medication-specific laboratory parameters, disease state markers and outcomes. Office/provider notes have been reviewed prior to dispensing the medication. 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 Patient confirmed: Yes Med/dose confirmed: Yes Supplies needed: No supplies needed Missed doses: No Estimated days supply on hand: 0 (last dose 02/14) Next cycle/dose due: 02/23/24 Copay amount: 15.55 Copay form of payment: Credit card on file Payment confirmed: Yes Delivery method: FedEx Signature required: No Delivery address: [address] [place] [address] Delivery date: 02/21/24 Questions or concerns for the pharmacist?: No Did you have any side effects believed to be related to this medication, that resulted in hospitalization?: No Current Outpatient Medications on File Prior to Visit Medication Sig ondansetron (ZOFRAN) 8 mg tablet Take 1 tablet by mouth every 8 hours as needed. capecitabine (XELODA) 500 mg tablet Take 3 tablets (1,500 mg) by mouth two times a day with food for 14 days on, followed by 7 days off (21-day cycle) acetaminophen (TYLENOL) 325 mg tablet Take 2 tablets by mouth every 6 hours as needed for pain. aspirin, enteric coated (ASPIRIN, ENTERIC COATED) 81 mg EC tablet Take 81 mg by mouth once daily. lisinopril (ZESTRIL, PRINIVIL) 10 mg tablet Take 10 mg by mouth once daily. atorvastatin (LIPITOR) 20 mg tablet Take 20 mg by mouth once daily. No current facility-administered medications on file prior to visit. [facility] CLINICAL ASSESSMENT - HEMATOLOGY ONCOLOGY V6: Assessment to use: Refill Date of influenza vaccination reminder: 01/01/2024 Date of most recent vaccination assessment: 01/01/2024 Treatment Plan Information: Dx: Gall bladder adenocarcinoma Tx hx: Radical cholecystectomy Tx regimen: Xeloda monotherapy Med: capecitabine (Xeloda) Dose: 1250 mg/m2 x 1.77 m2 = 2212.5 mg BID. Rounded to 1500 mg BID (47.5 % change). d/t [place] population and tolerance Sig: Take 3 tablets (1500 mg) by mouth twice daily with food for 14 days, followed by 7 days off Admin notes: c food, separate by 12 hrs Storage: rm temp Aes: HFS, diarrhea, stomatitis, low appetite, eye irritation Emetic pot: Low Baseline Labs: 12/16/23 - Scr (CrCl 70.8 ml/min), bili, AST, ALT, Hep b screen (triple negative), CBC, DPYD (normal metabolizer) DDI: NONE as of 01/01/24 Est. Tx Plan Start Date: 01/12/2024 Estimated Start Date Info: Tx team confirmed start of cycle on 01/12/24. Est. Estimated Treatment Duration: 6 months or until disease progression or unacceptable toxicity Shelia Machado documented in this encounter [facility] 02-17-2024 Note [facility] 02-10-2024 Note [facility] Medical Records Department [address] [place] [address] History Physical Exam 02/10/24 1510 MR#: [id number] Acct: [id number] Name: MARIE BLAIR Sofie Rep #: [id number] : 1945 78 From: Agus Friend PCP: Dr. Joe Muller MD Status:[facility] Location: [place] [address] History and Physical Date of Admission: 02/10/24 MARIE BLAIR, is a 78 F who presents to the office today for for an initial visit. She presented to [facility] with painful jaundice. She has been transferred to [facility] For the evaluation of right upper quadrant pain and jaundice. Imaging was concerning for gallbladder cancer and choledocholithiasis. She underwent ERCP and choledocholithiasis was removed at the sphincterotomy was achieved and multiple stones were removed. She had a pancreatic stent placed for post ERCP pancreatitis and she had a biliary stent placed for a stricture in the bile duct. She also went for a cholecystectomy. 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 Her biochemical profile shows a white blood cell count of 6.9, hemoglobin 11.9, platelet count of 697. She has no neutrophilic shift. Her LFTs are as follows bilirubin is 0.3, a AST of 19, ALT of 26 and alkaline phosphatase of 116 BUN/creatinine 15/.68. She comes in today because she noticed her stent is removed. ROS Const Constitutional: No fatigue, fever(s) or weight change ENT ENT: No difficulty swallowing Gastro GI: No abdominal pain, belching, bloating, change in bowel habits, change in stool character, coffee ground emesis, constipation, cramping, diarrhea, heartburn, difficulty swallowing, feeling full early, excessive flatus, incontinent of stools, Vomiting blood/hematemesis, Blood in stool, loose stools, Black,tarry stools, nausea/dyspepsia, pain with swallowing, vomiting or other Musc Musculoskeletal: Positive for back pain; No joint pain Skin Skin: No yellowing of the eye or itchy eyes Psych Psychiatric: No anxiety and No depression Endo Endocrine: No fatigue or weight change Aller/Imm Allergy/Immunologic: No itchy eyes Nickolas/Lymp Hematologic/Lymphatic: No easy bleeding or easy bruising Exam Const General: cooperative and comfortable Nutritional Appearance: average body habitus and well nourished [facility] Head: normal to inspection Ears: hearing grossly normal bilaterally Nose: external nose normal Face and sinus: normal facial exam Mouth: oral mucosae normal Throat: posterior oropharynx normal Eyes General: appearance normal, both eyes and all related structures Neck Neck: normal visual inspection Chest Chest palpation inspection: normal inspection of the chest and normal palpation of entire chest wall Resp Effort Inspection: normal respiratory effort Auscultation: Bilateral: Clear to Auscultation Cardio Palpation: normal PMI Rate: regular rate Rhythm: regular rhythm GI Inspection: normal to inspection Auscultation: normal bowel sounds Percussion: normal to percussion Palpation: no hepatosplenomegaly Skin General: no rashes or lesions noted Neuro General: patient alert Extrem General: normal to inspection Psych Affect: normal affect Assessment and Plan Assessment and Plan (1) Gallbladder cancer: Status: Acute Plan: 78-year-old with unfortunate past medical history of gallbladder cancer status post cholecystectomy and multiple small bowel resections. She will need to undergo stent removal. She was explained alternatives, risk, benefits of going on the same bleeding, infection, sepsis, perforation, need for emergent . She have an ASA of 3. I have examined the patient and the H P has been reviewed. There are no clinical changes since date of exam. 02/10/24 1512 Cosigner Signature (if applicable): CC: Dr. Joe Muller MD; Agus Friend, Signed [facility] 01-30-2024 Note [facility] 01-30-2024 History of Present illness Narrative Chief Complaint Patient presents with: Established Patient HPI: Marie Blair is a 78 year old female who presents here today for follow up gallbladder cancer/on xeloda. Per Dr. Jose's previous note: H/o Began having dull, continuous RUQ pain about 2 months ago. Had an ultrasound on 11/07/2023. Liver was noted to be 14.3 cm in length. Homogeneous echotexture without focal lesion. No intrahepatic ductal dilation. CBD: 7 mm in diameter. Gallbladder demonstrated shadowing gallstones with heterogeneous appearance. Gallbladder wall was 5 mm thick. No pericholecystic fluid. Sonographic Chin sign negative. Visualized proximal portion of the pancreas is unremarkable. CT scan on 11/12/2023. Findings were suspicious for acute cholecystitis. The gallbladder was noted to be contracted with multiple gallstones and wall thickening and stranding in the fat surrounding the fundus of the gallbladder worrisome for acute cholecystitis. There was mild intrahepatic biliary ductal dilation. She is admitted to [facility] on 11/18/2023. Started on antibiotics. Transferred to [facility]. Underwent MRCP. 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 Transferred to [facility] On 11/19. ERCP on 11/20. Failed attempt to cannulate the CBD. Repeat ERCP with stent placed on 11/23. Underwent radical cholecystectomy with en bloc partial duodenectomy for gallbladder adenocarcinoma 11/26/2023 with postop biliary leak from cystic duct stump managed with a drain. Pathology: FINAL DIAGNOSIS A. Small bowel, duodenal margin, biopsy: - Benign duodenal tissues. B. Soft tissue, ventral fat pad, excision: - Benign fibroadipose tissue. C. Lymph node, periportal, excision: - Metastatic carcinoma in one lymph node (1/). D. Lymph node, hepatic artery, excision: - One benign lymph node (0/). E. Cystic duct margin, excision: - Negative for malignancy. F. Gallbladder, liver (segments 4b-5) and duodenum (2nd portion), en bloc resection: - Poorly differentiated adenocarcinoma of gallbladder, arising in a background of high-grade dysplasia (see comment). - Tumor directly invades through gallbladder wall into hepatic parenchyma and duodenal wall as well as pericholecystic fibroadipose with microscopic features of pericholecystic abscess. - Focal serosal involvement is identified. - Margins negative for high-grade dysplasia and malignancy. - Positive for lymphovascular invasion. - Non-neoplastic hepatic parenchyma with no significant pathologic changes. Diagnosis Comment Block for additional Biomarkers/Molecular studies F6 Synoptic Report GALLBLADDER 8th Edition - Protocol posted: 09/27/2020GALLBLADDER: RESECTION/CHOLECYSTECTOMY - All Specimens SPECIMEN Procedure En bloc resection of gallbladder, liver segments 4b-5 and second portion of duodenum TUMOR Tumor Site Fundus Body Histologic Type Adenocarcinoma, biliary type Histologic Grade G3, poorly differentiated Tumor Size Greatest Dimension (Centimeters): 4.8 cm Additional Dimension (Centimeters) 3.4 cm 2.3 cm Tumor Extent Directly invades other adjacent organ(s) or structure(s) Duodenum Lymphovascular Invasion Present Perineural Invasion Not identified MARGINS Margin Status for Invasive Carcinoma All margins negative for invasive carcinoma Distance from Invasive Carcinoma to Cystic Duct Margin 1.3 cm Distance from Invasive Carcinoma to Liver Parenchymal Margin 1.5 cm Margin Status for Intraepithelial Neoplasia All margins negative for high-grade intraepithelial neoplasia Margin Comment Invasive adenocarcinoma is 0.2 cm away from the duodenal resection margin. REGIONAL LYMPH NODES Regional Lymph Node Status Tumor present in regional lymph node(s) Number of Lymph Nodes with Tumor 1 Number of Lymph Nodes Examined 2 PATHOLOGIC STAGE CLASSIFICATION (pTNM, AJCC 8th Edition) Reporting of pT, pN, and (when applicable) pM categories is based on information available to the pathologist at the time the report is issued. As per the AJCC (Chapter 1, 8th Ed.) it is the managing physician s responsibility to establish the final pathologic stage based upon all pertinent information, including but potentially not limited to this pathology report. pT Category pT3 pN Category pN1 ADDITIONAL FINDINGS Additional Findings Dysplasia / adenoma Cholelithiasis ~15 lb weight loss overall. Still has drain. Eating small amounts. No nausea or reflux. Gas type pain in RUQ. Having dark, formed stools. Most of the day in a chair right now. TIA 20+ years ago. Temporary lateral visual field cut left eye. Initially treated with Plavix. On low dose ASA now. Pt. here today with spouse. Pt. in the end of her off week. She plans to start her next cycle on Friday. Appetite:Getting better. Wt. down 3# over past month. Energy level:Getting a little better. Denies fevers. Mouth:denies sores Resp:denies cough or sob Cardiac:denies chest pain/palpitations GI:denies abd pain, n/v-this week (did have 3 episodes of vomiting this cycle), +constipation-taking an otc med she can't remember the name :denies dysuria/hematuria Extrem:denies pain Neuro:denies symptoms of neuropathy Skin:denies rashes, no HFS Heme:denies bleeding The ROS is otherwise negative. Past medical history, appointments, medications, allergies reviewed. No changes. EXAM: BP 113/68 Pulse 85 Temp 36.5 C (97.7 F) (Temporal) Wt 63.7 kg (140 lb 6.9 oz) SpO2 91% BMI 21.67 kg/m APPEARANCE Well appearing, alert, in no acute distress, well-hydrated, well nourished. HEART RRR with normal S1 and S2, no murmurs LUNG clear to auscultation LYMPH NODES No cervical lymphadenopathy, No supraclavicular lymphadenopathy, and No axillary lymphadenopathy. ABDOMEN bowel sounds normoactive, soft, non-tender, non-distended EXTREMITIES No edema NEURO Awake, alert and oriented x 3, Normal gait, and No involuntary motions. SKIN Skin color, texture, turgor normal, no suspicious rashes or lesions LABS: Latest Ref Rng 12/05/2023 12/06/2023 12/16/2023 01/30/2024 WBC 3.70 - 11.00 k/uL 14.87 (H) 15.32 (H) 6.96 7.33 RBC 3.90 - 5.20 m/uL 2.69 (L) 2.90 (L) 4.19 3.89 (L) Hemoglobin 11.5 - 15.5 g/dL 7.7 (L) 8.5 (L) 11.9 11.2 (L) Hematocrit 36.0 - 46.0 % 23.6 (L) 25.4 (L) 38.6 36.0 MCV 80.0 - 100.0 fL 87.7 87.6 92.1 92.5 MCH 26.0 - 34.0 pg 28.6 29.3 28.4 28.8 MCHC 30.5 - 36.0 g/dL 32.6 33.5 30.8 31.1 RDW-CV 11.5 - 15.0 % 15.2 (H) 15.2 (H) 16.5 (H) 15.8 (H) Platelet Count 150 - 400 k/uL 549 (H) 656 (H) 697 (H) 357 MPV 9.0 - 12.7 fL 9.1 9.1 10.1 9.5 Neut% % 52.7 47.2 Abs Neut (ANC) 1.45 - 7.50 k/uL 3.67 3.45 Lymph% % 31.9 41.7 Abs Lymph 1.00 - 4.00 k/uL 2.22 3.06 Barbour% % 13.4 9.5 Abs Barbour <0.87 k/uL 0.93 (H) 0.70 Eosin% % 0.9 0.8 Abs Eosin <0.46 k/uL 0.06 0.06 Baso% % 0.7 0.4 Abs Baso <0.11 k/uL 0.05 0.03 Immature Gran % % 0.4 0.4 IMMATURE GRANS (ABS) <0.10 k/uL 0.03 0.03 NRBC /100 WBC 0.0 0.0 Absolute nRBC <0.01 k/uL <0.01 <0.01 <0.01 <0.01 DTYPE Auto Auto CMP: Pending ASSESSMENT/PLAN: 1. Gallbladder cancer (HCC) - ICD9: 156.0, ICD10: C23 Per Dr. 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 -I discussed the pathology with the patient and her . I also discussed the natural history, treated course, and prognosis of the disease as well as the rationale for adjuvant therapy. -Recommended a standard adjuvant course of capecitabine. -I discussed the rationale (based on the BILCAP trial), logistics, potential risks (including but not limited to fatigue, cytopenias, mucositis, diarrhea, nausea and vomiting, hand-foot skin syndrome, infections and the small potential for as a consequence of severe toxicity/complications of therapy), benefits and alternatives, as well as the personnel involved in the administration of capecitabine. I answered her questions in detail and she verbalized understanding and agreed with the recommended therapy. Please see the electronic consent document for details of doses and schedule. Plan: -Labs today including CBC, chemistry panel, hematinics and DPYD/UGT1A1 genotyping panel. -Plan to begin therapy in a few weeks once drain out and she's had some more time for recovery. -Aim for 6 months of treatment. -CTs in about 3 months. - Overall tolerating xeloda well except for constipation/mild nausea. - Reviewed CBC with pt. - CMP pending. - Continue current dose of xeloda. - Goal 6 months of treatment pending tolerance. - Continue current medications. - CT's 3 months from xeloda start. - Proceed with next cycle of xeloda on Friday pending CMP. - Follow up @ 9:30 with CBC/CMP. - Pt. aware to call office with any questions/concerns. The patient indicates understanding of these issues and agrees with the plan. All documentation from previous visit of 01/05/24-Dr. Jose/myself was copied and pasted, documentation has been reviewed and edited as necessary for today's visit. Denice Orozco APRN.DANIELLA documented in this encounter [facility] 01-26-2024 History of Present illness Narrative [facility] Refill Assessment Medication(s): Capecitabine Patient's current medication list and adherence status to current therapy were reviewed by Specialty Pharmacy clinical pharmacist to identify any new drug interactions or non-compliance to therapy. Therapy continues to be appropriate for disease, patient response, and medical condition. Verification of therapeutic benefit and effectiveness with current therapy was completed. Adverse events, barriers in adherence, and side effects were assessed and addressed if applicable. Will proceed with refill with no changes in therapy - patient progressing towards achieving therapeutic goals based on medication-specific laboratory parameters, disease state markers and outcomes. Office/provider notes have been reviewed prior to dispensing the medication. 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 Patient confirmed: Yes Med/dose confirmed: Yes Supplies needed: No supplies needed Missed doses: Yes Count of missed doses: 1 Reason for missed doses: Pt was feeling ill. Made up missed dose today Estimated days supply on hand: 1 (1 extra tablet) Next cycle/dose due: 02/02/24 Copay amount: 13.95 Copay form of payment: Credit card on file Payment confirmed: Yes Delivery method: FedEx Signature required: No Delivery address: [address] [place] [address] Delivery date: 01/30/24 Questions or concerns for the pharmacist?: Yes Patient questions/concerns: Other (see text box below) Other questions/concerns: Pt wanted to know about getting flu shot messaged [facility] and it is ok to take. Did you have any side effects believed to be related to this medication, that resulted in hospitalization?: No Current Outpatient Medications on File Prior to Visit Medication Sig ondansetron (ZOFRAN) 8 mg tablet Take 1 tablet by mouth every 8 hours as needed. capecitabine (XELODA) 500 mg tablet Take 3 tablets (1,500 mg) by mouth two times a day with food for 14 days on, followed by 7 days off (21-day cycle) acetaminophen (TYLENOL) 325 mg tablet Take 2 tablets by mouth every 6 hours as needed for pain. aspirin, enteric coated (ASPIRIN, ENTERIC COATED) 81 mg EC tablet Take 81 mg by mouth once daily. lisinopril (ZESTRIL, PRINIVIL) 10 mg tablet Take 10 mg by mouth once daily. atorvastatin (LIPITOR) 20 mg tablet Take 20 mg by mouth once daily. No current facility-administered medications on file prior to visit. [facility] CLINICAL ASSESSMENT - HEMATOLOGY ONCOLOGY V6: Assessment to use: Refill Date of influenza vaccination reminder: 01/01/2024 Date of most recent vaccination assessment: 01/01/2024 Treatment Plan Information: Dx: Gall bladder adenocarcinoma Tx hx: Radical cholecystectomy Tx regimen: Xeloda monotherapy Med: capecitabine (Xeloda) Dose: 1250 mg/m2 x 1.77 m2 = 2212.5 mg BID. Rounded to 1500 mg BID (47.5 % change). DR beal/t [place] population and tolerance Sig: Take 3 tablets (1500 mg) by mouth twice daily with food for 14 days, followed by 7 days off Admin notes: c food, separate by 12 hrs Storage: rm temp Aes: HFS, diarrhea, stomatitis, low appetite, eye irritation Emetic pot: Low Baseline Labs: 12/16/23 - Scr (CrCl 70.8 ml/min), bili, AST, ALT, Hep b screen (triple negative), CBC, DPYD (normal metabolizer) DDI: NONE as of 01/01/24 Est. Tx Plan Start Date: 01/12/2024 Estimated Start Date Info: Tx team confirmed start of cycle on 01/12/24. Est. Estimated Treatment Duration: 6 months or until disease progression or unacceptable toxicity Kiana Osei documented in this encounter [facility] 01-26-2024 Note [facility] 01-19-2024 Telephone encounter Note ORAL ANTI-CANCER AGENTS FOLLOW-UP PHONE CALL/VISIT Patient identified by name and date of . YES Patient is on cycle 1, week 2, day 8 of Capecitabine (Xeloda) for Gallbladder/cholangiocarcinoma. SYMPTOM ASSESSMENT Headache: No Visual Changes: No Dizziness: No Do you have any periods of confusion? No Mood changes: No Mouth or throat pain: No, dry mouth- takes sips of water which helps Appetite: no changes in appetite, appetite fair Taste changes: No Nausea: Yes Usama after breakfast. Took Zofran. Vomiting: Yes - 1 episode last Friday after breakfast. Advised patient to take Zofran if she starts to feel nauseous, continue every 8 hours for 24 hours if needed. Heartburn: No. Weight gain/loss: No Episodes of palpitations/chest discomfort/pressure/pain No Shortness of breath: No Cough: No Diarrhea: no Constipation: yes, a couple times. Took laxative which helped. Bladder/Urinary Changes: None Pain: No=0 (pain 0 on a scale of 0-10). Fever: No Chills: No Cold sensitivity: No Numbness/weakness: No Edema: No Skin changes: No Itching: No Yellowing of skin or eyes: No Musculoskeletal/joint changes/issues No Bleeding issues: No Activity Level: average Do you need to take naps? No I do a couple times for a short period of time, nothing extreme. 10 minutes at a time. Does the patient need interventions or same day appointment:No ADDITIONAL FOLLOW UP: The next outreach call is due on: TBD and was scheduled patient instructed to call our office with any symptoms or questions. The following lab tests are due: CBC/CMP 01/30/24 Verified patient is aware of next appointment in the cancer center: Yes. Verified patient verbalized how to correctly refill the oral agent prescription. Yes Does the patient have any financial difficulties affording this medication? No Patient verbalizes understanding of when to seek Medical Attention? YES Patient verbalizes understanding of after-hours and weekend phone number? YES Patient verbalized importance of medication compliance in taking the oral agent as prescribed. Patient instructed to call if unable to comply. Teresa Moore RN [facility] 01-19-2024 Miscellaneous Notes ORAL ANTI-CANCER AGENTS FOLLOW-UP PHONE CALL/VISIT Patient identified by name and date of . YES Patient is on cycle 1, week 2, day 8 of Capecitabine (Xeloda) for Gallbladder/cholangiocarcinoma. SYMPTOM ASSESSMENT Headache: No Visual Changes: No Dizziness: No Do you have any periods of confusion? No Mood changes: No Mouth or throat pain: No, dry mouth- takes sips of water which helps Appetite: no changes in appetite, appetite fair Taste changes: No Nausea: Yes Usama after breakfast. Took Zofran. Vomiting: Yes - 1 episode last Friday after breakfast. Advised patient to take Zofran if she starts to feel nauseous, continue every 8 hours for 24 hours if needed. Heartburn: No. Weight gain/loss: No Episodes of palpitations/chest discomfort/pressure/pain No Shortness of breath: No Cough: No Diarrhea: no Constipation: yes, a couple times. Took laxative which helped. Bladder/Urinary Changes: None Pain: No=0 (pain 0 on a scale of 0-10). Fever: No Chills: No Cold sensitivity: No Numbness/weakness: No Edema: No Skin changes: No Itching: No Yellowing of skin or eyes: No Musculoskeletal/joint changes/issues No Bleeding issues: No Activity Level: average Do you need to take naps? No I do a couple times for a short period of time, nothing extreme. 10 minutes at a time. Does the patient need interventions or same day appointment:No ADDITIONAL FOLLOW UP: The next outreach call is due on: TBD and was scheduled patient instructed to call our office with any symptoms or questions. The following lab tests are due: CBC/CMP 01/30/24 Verified patient is aware of next appointment in the cancer center: Yes. Verified patient verbalized how to correctly refill the oral agent prescription. Yes Does the patient have any financial difficulties affording this medication? No Patient verbalizes understanding of when to seek Medical Attention? YES Patient verbalizes understanding of after-hours and weekend phone number? YES Patient verbalized importance of medication compliance in taking the oral agent as prescribed. Patient instructed to call if unable to comply. Teresa Moore RN documented in this encounter [facility] 01-08-2024 Telephone encounter Note Spoke with patient and scheduled. Printed and mailed appointment reminder. Karen Zamudio [facility] 01-08-2024 Miscellaneous Notes Spoke with patient and scheduled. Printed and mailed appointment reminder. Karen Zamudio PSS Please reach out to pt to schedule. CBC/CMP/OV towards end off week which will be . Can be with Dr. Jose or an MANAGER IN[employer]ANKING. Clarice Rodney LPN Agree. Thank you. Tin Jose DO Patient started/will start taking xeloda on 01/12/24. Reviewed medication instructions. 3 tablets AM/ 3 tablets PM. Take within 30 minutes after a meal. CBC/CMP/OV towards end off week which will be . Can be with Dr. Jose or an MANAGER [employer]ING. Thank you. Tersea Moore RN Patient called to inform office that she received Xeloda today. documented in this encounter [facility] 01-08-2024 Telephone encounter Note PSS Please reach out to pt to schedule. CBC/CMP/OV towards end off week which will be . Can be with Dr. Jose or an MANAGER IN[employer]ANKING. Clarice Rodney LPN [facility] 01-07-2024 Telephone encounter Note Agree. Thank you. Tin Jose DO [facility] 01-07-2024 Telephone encounter Note Patient started/will start taking xeloda on 01/12/24. Reviewed medication instructions. 3 tablets AM/ 3 tablets PM. Take within 30 minutes after a meal. CBC/CMP/OV towards end off week which will be . Can be with Dr. Jose or an MANAGER [employer]ING. Thank you. Teresa Moore RN [facility] 01-07-2024 Telephone encounter Note Patient called to inform office that she received Xeloda today. [facility] Work Phone: 01-05-2024 Note [facility] 01-05-2024 History of Present illness Narrative Chief Complaint Patient presents with: Established Patient HPI: Marie Blair is a 78 year old female who presents here today for follow up gallbladder cancer. Per Dr. Jose's previous note: H/o Began having dull, continuous RUQ pain about 2 months ago. Had an ultrasound on 11/07/2023. Liver was noted to be 14.3 cm in length. Homogeneous echotexture without focal lesion. No intrahepatic ductal dilation. CBD: 7 mm in diameter. Gallbladder demonstrated shadowing gallstones with heterogeneous appearance. Gallbladder wall was 5 mm thick. No pericholecystic fluid. Sonographic Chin sign negative. Visualized proximal portion of the pancreas is unremarkable. CT scan on 11/12/2023. Findings were suspicious for acute cholecystitis. The gallbladder was noted to be contracted with multiple gallstones and wall thickening and stranding in the fat surrounding the fundus of the gallbladder worrisome for acute cholecystitis. There was mild intrahepatic biliary ductal dilation. She is admitted to [facility] on 11/18/2023. Started on antibiotics. Transferred to [facility]. Underwent MRCP. 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 Transferred to [facility] On 11/19. ERCP on 11/20. Failed attempt to cannulate the CBD. Repeat ERCP with stent placed on 11/23. Underwent radical cholecystectomy with en bloc partial duodenectomy for gallbladder adenocarcinoma 11/26/2023 with postop biliary leak from cystic duct stump managed with a drain. Pathology: FINAL DIAGNOSIS A. Small bowel, duodenal margin, biopsy: - Benign duodenal tissues. B. Soft tissue, ventral fat pad, excision: - Benign fibroadipose tissue. C. Lymph node, periportal, excision: - Metastatic carcinoma in one lymph node (1/1). D. Lymph node, hepatic artery, excision: - One benign lymph node (0/1). E. Cystic duct margin, excision: - Negative for malignancy. F. Gallbladder, liver (segments 4b-5) and duodenum (2nd portion), en bloc resection: - Poorly differentiated adenocarcinoma of gallbladder, arising in a background of high-grade dysplasia (see comment). - Tumor directly invades through gallbladder wall into hepatic parenchyma and duodenal wall as well as pericholecystic fibroadipose with microscopic features of pericholecystic abscess. - Focal serosal involvement is identified. - Margins negative for high-grade dysplasia and malignancy. - Positive for lymphovascular invasion. - Non-neoplastic hepatic parenchyma with no significant pathologic changes. Diagnosis Comment Block for additional Biomarkers/Molecular studies F6 Synoptic Report GALLBLADDER 8th Edition - Protocol posted: 09/27/2020GALLBLADDER: RESECTION/CHOLECYSTECTOMY - All Specimens SPECIMEN Procedure En bloc resection of gallbladder, liver segments 4b-5 and second portion of duodenum TUMOR Tumor Site Fundus Body Histologic Type Adenocarcinoma, biliary type Histologic Grade G3, poorly differentiated Tumor Size Greatest Dimension (Centimeters): 4.8 cm Additional Dimension (Centimeters) 3.4 cm 2.3 cm Tumor Extent Directly invades other adjacent organ(s) or structure(s) Duodenum Lymphovascular Invasion Present Perineural Invasion Not identified MARGINS Margin Status for Invasive Carcinoma All margins negative for invasive carcinoma Distance from Invasive Carcinoma to Cystic Duct Margin 1.3 cm Distance from Invasive Carcinoma to Liver Parenchymal Margin 1.5 cm Margin Status for Intraepithelial Neoplasia All margins negative for high-grade intraepithelial neoplasia Margin Comment Invasive adenocarcinoma is 0.2 cm away from the duodenal resection margin. REGIONAL LYMPH NODES Regional Lymph Node Status Tumor present in regional lymph node(s) Number of Lymph Nodes with Tumor 1 Number of Lymph Nodes Examined 2 PATHOLOGIC STAGE CLASSIFICATION (pTNM, AJCC 8th Edition) Reporting of pT, pN, and (when applicable) pM categories is based on information available to the pathologist at the time the report is issued. As per the AJCC (Chapter 1, 8th Ed.) it is the managing physician s responsibility to establish the final pathologic stage based upon all pertinent information, including but potentially not limited to this pathology report. pT Category pT3 pN Category pN1 ADDITIONAL FINDINGS Additional Findings Dysplasia / adenoma Cholelithiasis ~15 lb weight loss overall. Still has drain. Eating small amounts. No nausea or reflux. Gas type pain in RUQ. Having dark, formed stools. Most of the day in a chair right now. TIA 20+ years ago. Temporary lateral visual field cut left eye. Initially treated with Plavix. On low dose ASA now. Pt. here today with spouse. Appetite:It comes and goes. Energy level:Getting better. Denies fevers. Mouth:denies sores Resp:denies cough or sob Cardiac:denies chest pain/palpitations GI:denies abd pain, n/v, moving bowels regularly :denies dysuria/hematuria Extrem:occ. surgical pain Neuro:denies symptoms of neuropathy Skin:denies rashes Heme:denies bleeding The ROS is otherwise negative. Past medical history, appointments, medications, allergies reviewed. No changes. EXAM: BP 111/74 Pulse 100 Temp 36.4 C (97.6 F) (Temporal) Wt 65.3 kg (143 lb 15.4 oz) SpO2 97% BMI 22.21 kg/m APPEARANCE Well appearing, alert, in no acute distress, well-hydrated, well nourished. EXTREMITIES No edema NEURO Awake, alert and oriented x 3, Normal gait, and No involuntary motions. ASSESSMENT/PLAN: 1. Gallbladder cancer (HCC) - ICD9: 156.0, ICD10: C23 Per Dr. 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 -I discussed the pathology with the patient and her . I also discussed the natural history, treated course, and prognosis of the disease as well as the rationale for adjuvant therapy. -Recommended a standard adjuvant course of capecitabine. -I discussed the rationale (based on the BILCAP trial), logistics, potential risks (including but not limited to fatigue, cytopenias, mucositis, diarrhea, nausea and vomiting, hand-foot skin syndrome, infections and the small potential for as a consequence of severe toxicity/complications of therapy), benefits and alternatives, as well as the personnel involved in the administration of capecitabine. I answered her questions in detail and she verbalized understanding and agreed with the recommended therapy. Please see the electronic consent document for details of doses and schedule. Plan: -Labs today including CBC, chemistry panel, hematinics and DPYD/UGT1A1 genotyping panel. -Plan to begin therapy in a few weeks once drain out and she's had some more time for recovery. -Aim for 6 months of treatment. -CTs in about 3 months. - Drain removed. - Long discussion with pt. and spouse re:xeloda/potential side effects and follow up plan going forward. Goal 6 months of treatment pending tolerance. - CT's in 3 months. - Pt. will call office once she receives xeloda and will give start date and plan for follow up OV. - Pt. aware to call office with any questions/concerns. The patient indicates understanding of these issues and agrees with the plan. All documentation from previous visit of 12/16/23-Dr. Jose was copied and pasted, documentation has been reviewed and edited as necessary for today's visit. Denice Orozco APRN.INSURANCE PROCESSING CLERK documented in this encounter [facility] 12-26-2023 Miscellaneous Notes ORAL ANTI-CANCER AGENTS EDUCATION patient called today for oral medication education of xeloda for Gallbladder/cholangiocarcinoma Anticipated/Scheduled start date: TBD READINESS TO LEARN Cognitive Ability: Alert and oriented Motivation to Learn: Interested Family Support: Unable to assess - Family not present Instruction Provided to: Patient Patient learns best by: Multiple Methods Factors affecting learning: None Physical limitation affecting learning: None CHACKO ASSESSMENT: 1.) Verified that patient knows that the oral agents are for cancer and are taken by mouth. Yes 2.) Medication review completed during visit. Yes 3.) Patient is able to swallow pills. Yes 4.) Patient is able to read the drug label/information. Yes 5.) Patient is able to open the medication bottles and packages. Yes 6.) Has patient taken other pills for cancer? No 7.) Is patient experiencing any symptoms that would affect their ability to keep down pills, for example nausea or vomiting? No 8.) Verified that patient understands prescription delivery, benefit investigation and refill process. Yes DRUG-SPECIFIC EDUCATION: 1.) Verified patient knows the drug name. Yes 2.) Verified patient understands the dose and schedule of oral anti cancer agent. Yes 3.) Verified patient knows what to do if a medication dose is missed. Yes 4.) Verified patient understands where to store the drug. Yes 5.) Verified patient understands potential side effects and how to manage them. Yes 6.)Verified patient understands handling precautions of oral anti cancer agent. Yes 7.) Verified patient was given written instructions and understands when and whom to call with questions. Yes 8.) Verified patient understands where and how to return drug. Yes 9.) Verified patient received drug specific adult education handout and neutropenic wallet card Yes EVALUATE: The patient demonstrated an understanding of all the above education using the teach-back method. Yes Instructed to call us with any questions, concerns, and/or unresolved symptoms. Will continue to follow up and provide reinforcement of teaching topics as needed. Teresa Moore RN documented in this encounter [facility] 12-26-2023 Telephone encounter Note ORAL ANTI-CANCER AGENTS EDUCATION patient called today for oral medication education of xeloda for Gallbladder/cholangiocarcinoma Anticipated/Scheduled start date: TBD READINESS TO LEARN Cognitive Ability: Alert and oriented Motivation to Learn: Interested Family Support: Unable to assess - Family not present Instruction Provided to: Patient Patient learns best by: Multiple Methods Factors affecting learning: None Physical limitation affecting learning: None CHACKO ASSESSMENT: 1.) Verified that patient knows that the oral agents are for cancer and are taken by mouth. Yes 2.) Medication review completed during visit. Yes 3.) Patient is able to swallow pills. Yes 4.) Patient is able to read the drug label/information. Yes 5.) Patient is able to open the medication bottles and packages. Yes 6.) Has patient taken other pills for cancer? No 7.) Is patient experiencing any symptoms that would affect their ability to keep down pills, for example nausea or vomiting? No 8.) Verified that patient understands prescription delivery, benefit investigation and refill process. Yes DRUG-SPECIFIC EDUCATION: 1.) Verified patient knows the drug name. Yes 2.) Verified patient understands the dose and schedule of oral anti cancer agent. Yes 3.) Verified patient knows what to do if a medication dose is missed. Yes 4.) Verified patient understands where to store the drug. Yes 5.) Verified patient understands potential side effects and how to manage them. Yes 6.)Verified patient understands handling precautions of oral anti cancer agent. Yes 7.) Verified patient was given written instructions and understands when and whom to call with questions. Yes 8.) Verified patient understands where and how to return drug. Yes 9.) Verified patient received drug specific adult education handout and neutropenic wallet card Yes EVALUATE: The patient demonstrated an understanding of all the above education using the teach-back method. Yes Instructed to call us with any questions, concerns, and/or unresolved symptoms. Will continue to follow up and provide reinforcement of teaching topics as needed. Teresa Moore RN [facility] 12-26-2023 Note Julieta Mcginnis [facility] 12-26-2023 History of Present illness Narrative [facility] SURGERY PROGRESS NOTE Subjective INTERVAL HISTORY OF PRESENT ILLNESS: Doing well Having some nausea, mostly at night - started Reglan a few days ago which is working well Minimal pain Minimal drain output - removed in office today Saw Dr. Jose and starting on treatment in a few weeks Objective PHYSICAL EXAM: BP 108/64 Pulse 52 Ht 5' 7.5 (1.72m) SpO2 98% Physical Exam Performed GENERAL: Alert, no distress, cooperative LUNGS: Negative ABDOMEN: Abdomen soft, non-tender, BS normal, No masses or organomegaly The remainder of the physical exam is noncontributory. 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 --Follow-up with Dr. Jose for systemic therapy --Trial of reglan for nausea at night --Needs biliary stent removed - refer to Dr. Oden --Follow-up with [facility] PRVishnu Jones MD [facility] Surgeon documented in this encounter [facility] 12-19-2023 Telephone encounter Note Spoke with Referring office to inquire where they would like the patient to go for procedure. December 19, 2023 11:32 AM Venessa Caro [facility] 12-19-2023 Telephone encounter Note ----- Message from Colette Ortega sent at 11/28/2023 8:04 AM EDT ----- Regarding: FW: ERCP with stent removal ----- Message ----- From: Snehal Joshua APRN.INSURANCE PROCESSING CLERK Sent: 11/26/2023 12:17 PM EDT To: Colette Douglas(Hist) Ramila; Rubia Blair MD Subject: ERCP with stent removal Good afternoon, Dr. Blair performed ERCP on 11/25/2023 for choledocholithiasis with plastic biliary stent placement. Can you please assist with scheduling repeat ERCP in 6-8 weeks for stent removal. She may need repeat EGD pending results of abdominal x-ray in 2 weeks. Thank you, Snehal [facility] 12-19-2023 Miscellaneous Notes Spoke with Referring office to inquire where they would like the patient to go for procedure. December 19, 2023 11:32 AM Venessa Caro ----- Message from Colette Ortega sent at 11/28/2023 8:04 AM EDT ----- Regarding: FW: ERCP with stent removal ----- Message ----- From: Snehal Joshua APRN.INSURANCE PROCESSING CLERK Sent: 11/26/2023 12:17 PM EDT To: Colette Douglas(Hist) Jeffrey; Rubia Blair MD Subject: ERCP with stent removal Good afternoon, Dr. Blair performed ERCP on 11/25/2023 for choledocholithiasis with plastic biliary stent placement. Can you please assist with scheduling repeat ERCP in 6-8 weeks for stent removal. She may need repeat EGD pending results of abdominal x-ray in 2 weeks. Thank you, Snehal documented in this encounter [facility] 12-17-2023 History of Present illness Narrative [facility] received prescription(s) for Capecitabine from Dr. Jose's office. Benefits investigation was conducted, indicating that NO prior authorization is required by his/her [facility] Medicare Advantage plan. Medication is 80% covered under medical Part B benefit, leaving a 20% coinsurance (copay is $15.55 / cycle at current dose) until the $ medical max out of pocket (MOOP) is met. To date, s/he has met ~$ of the MOOP. Unfortunately, there is no copay assistance for capecitabine available at this time. Will be contacting pt to discuss affordability and alternative options that may be available. documented in this encounter [facility] 12-17-2023 Note [facility] 12-17-2023 Note [facility] 12-16-2023 Note [facility] 12-16-2023 History of Present illness Narrative Marie Blair is a 78 year old female referred by Dr. Jones for my opinion regarding the management of cholangiocarcinoma. HPI: The patient is a 70-year-old female with a past medical history as outlined below. Began having dull, continuous RUQ pain about 2 months ago. Had an ultrasound on 11/07/2023. Liver was noted to be 14.3 cm in length. Homogeneous echotexture without focal lesion. No intrahepatic ductal dilation. CBD: 7 mm in diameter. Gallbladder demonstrated shadowing gallstones with heterogeneous appearance. Gallbladder wall was 5 mm thick. No pericholecystic fluid. Sonographic Chin sign negative. Visualized proximal portion of the pancreas is unremarkable. CT scan on 11/12/2023. Findings were suspicious for acute cholecystitis. The gallbladder was noted to be contracted with multiple gallstones and wall thickening and stranding in the fat surrounding the fundus of the gallbladder worrisome for acute cholecystitis. There was mild intrahepatic biliary ductal dilation. She is admitted to [facility] on 11/18/2023. Started on antibiotics. Transferred to [facility]. Underwent MRCP. 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 Transferred to [facility] On 11/19. ERCP on 11/20. Failed attempt to cannulate the CBD. Repeat ERCP with stent placed on 11/23. Underwent radical cholecystectomy with en bloc partial duodenectomy for gallbladder adenocarcinoma 11/26/2023 with postop biliary leak from cystic duct stump managed with a drain. Pathology: FINAL DIAGNOSIS A. Small bowel, duodenal margin, biopsy: - Benign duodenal tissues. B. Soft tissue, ventral fat pad, excision: - Benign fibroadipose tissue. C. Lymph node, periportal, excision: - Metastatic carcinoma in one lymph node (1/). D. Lymph node, hepatic artery, excision: - One benign lymph node (0/). E. Cystic duct margin, excision: - Negative for malignancy. F. Gallbladder, liver (segments 4b-5) and duodenum (2nd portion), en bloc resection: - Poorly differentiated adenocarcinoma of gallbladder, arising in a background of high-grade dysplasia (see comment). - Tumor directly invades through gallbladder wall into hepatic parenchyma and duodenal wall as well as pericholecystic fibroadipose with microscopic features of pericholecystic abscess. - Focal serosal involvement is identified. - Margins negative for high-grade dysplasia and malignancy. - Positive for lymphovascular invasion. - Non-neoplastic hepatic parenchyma with no significant pathologic changes. Diagnosis Comment Block for additional Biomarkers/Molecular studies F6 Synoptic Report GALLBLADDER 8th Edition - Protocol posted: 09/27/2020GALLBLADDER: RESECTION/CHOLECYSTECTOMY - All Specimens SPECIMEN Procedure En bloc resection of gallbladder, liver segments 4b-5 and second portion of duodenum TUMOR Tumor Site Fundus Body Histologic Type Adenocarcinoma, biliary type Histologic Grade G3, poorly differentiated Tumor Size Greatest Dimension (Centimeters): 4.8 cm Additional Dimension (Centimeters) 3.4 cm 2.3 cm Tumor Extent Directly invades other adjacent organ(s) or structure(s) Duodenum Lymphovascular Invasion Present Perineural Invasion Not identified MARGINS Margin Status for Invasive Carcinoma All margins negative for invasive carcinoma Distance from Invasive Carcinoma to Cystic Duct Margin 1.3 cm Distance from Invasive Carcinoma to Liver Parenchymal Margin 1.5 cm Margin Status for Intraepithelial Neoplasia All margins negative for high-grade intraepithelial neoplasia Margin Comment Invasive adenocarcinoma is 0.2 cm away from the duodenal resection margin. REGIONAL LYMPH NODES Regional Lymph Node Status Tumor present in regional lymph node(s) Number of Lymph Nodes with Tumor 1 Number of Lymph Nodes Examined 2 PATHOLOGIC STAGE CLASSIFICATION (pTNM, AJCC 8th Edition) Reporting of pT, pN, and (when applicable) pM categories is based on information available to the pathologist at the time the report is issued. As per the AJCC (Chapter 1, 8th Ed.) it is the managing physician s responsibility to establish the final pathologic stage based upon all pertinent information, including but potentially not limited to this pathology report. pT Category pT3 pN Category pN1 ADDITIONAL FINDINGS Additional Findings Dysplasia / adenoma Cholelithiasis ~15 lb weight loss overall. Still has drain. Eating small amounts. No nausea or reflux. Gas type pain in RUQ. Having dark, formed stools. Most of the day in a chair right now. TIA 20+ years ago. Temporary lateral visual field cut left eye. Initially treated with Plavix. On low dose ASA now. PAST MEDICAL HISTORY Diagnosis Date Cataract (lens) fragments in eye following cataract surgery, left eye 08/30/2021 Essential hypertension History of TIA (transient ischemic attack) 2010 Hypercholesteremia PAST SURGICAL HISTORY Procedure Laterality Date APPENDECTOMY HX PAST SURGICAL HISTORY OF Skin cancer removed from forehead REMV CATARACT EXTRACAP,INSERT LENS Left 08/30/2021 SN60WF +16.5 D REMV CATARACT EXTRACAP,INSERT LENS Right 09/07/2021 SN60WF 16.0D amoxicillin-clavulanate potassium (AUGMENTIN) 875-125 mg per tablet Take 1 tablet by mouth every 12 hours for 10 days. acetaminophen (TYLENOL) 325 mg tablet Take 2 tablets by mouth every 6 hours as needed for pain. aspirin, enteric coated (ASPIRIN, ENTERIC COATED) 81 mg EC tablet Take 81 mg by mouth once daily. lisinopril (ZESTRIL, PRINIVIL) 10 mg tablet Take 10 mg by mouth once daily. atorvastatin (LIPITOR) 20 mg tablet Take 20 mg by mouth once daily. apixaban (ELIQUIS) 5 mg tab(s) Take 1 tablet by mouth two times a day. propylene glycoL (SYSTANE COMPLETE) 0.6 % drop Use 1 Drop in both eyes three times daily. ALLERGIES No Known Allergies FAMILY HISTORY Problem Relation Age of Onset Stroke Mother Heart Father Heart Sister Heart Sister Heart Brother No Ocular Disease No Family History Social History Tobacco Use Smoking status: Never Smokeless tobacco: Never REVIEW OF SYSTEMS: Constitutional: No episodes of fever and night sweats. Neuro: No CASAS, vertigo, dizziness and imbalance. No symptoms of neuropathy. HEENT: No recent change in voice, vision or hearing. Resp: No cough, wheeze and hemoptysis. No shortness of breath at rest. CVS: Denies exertional chest pain, PND, orthopnea and LE edema. GI: See above. : Denies dysuria or gross hematuria. Endo: Denies hot flashes. Denies polyuria and polydipsia. Denies heat and cold intolerance. Musculoskeletal: Denies bone, back, joint and muscular pain. Derm: Denies rash. Denies jaundice and diffuse pruritis. Heme: Denies unusual bleeding and unexplained bruising. Psych: Normal mood. PHYSICAL EXAM: Vitals: Blood pressure 116/78, pulse 104, temperature 36.6 C (97.9 F), temperature source Temporal, height 171.5 cm (5' 7.5), weight 65.8 kg (145 lb), SpO2 98%. Frail-appearing and in no acute distress. EYES: Sclerae are anicteric bilaterally. ENT: Oral mucosa is unremarkable. There is no sign of thrush or mucositis. LYMPHATIC: There is no palpable cervical, supraclavicular, axillary or inguinal adenopathy. RESPIRATORY: Inspiratory breath sounds are of normal intensity in all [place]. No rales, wheezes or rhonchi. Expiratory phase is normal. CARDIOVASCULAR: Rhythm is regular. ABDOMEN: The abdomen is nondistended. No splenomegaly or hepatomegaly. No tenderness. Extremities: No swelling or edema. SKIN: No jaundice or rash. No petechiae. NEUROLOGIC: ict customer support officer II-XII are grossly intact. No focal motor weakness. DTRs are symmetric and normal. MUSCULOSKELETAL: No joint swelling or tenderness. No muscle wasting. IMAGING: CT chest 11/20/2023: Limitations: Noncontrast technique Lines, tubes, and devices: None. Lung parenchyma and airways: There are scattered calcified bilateral granulomata. A couple of tiny noncalcified nodules are seen. These are noted on image 4:106-right upper lobe and image 4:153-left lower lobe. These measure no more than 3 mm each. Otherwise, no active infiltrates. No endobronchial lesion. Pleural space: No pleural effusion. No pleural thickening. Lower neck, lymph nodes, and mediastinum: Multiple small bilateral thyroidal nodules. No mediastinal lymphadenopathy. Heart, pericardium, and thoracic vessels: Atherosclerotic coronary calcifications. The heart is not enlarged. The great vessels are normal in caliber. Bones and soft tissues: No destructive bone lesion. Chest wall is unremarkable. Upper abdomen: Possible calcified gallstones. Numerous splenic calcified granulomata. Localizer images: No additional findings. 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 -I discussed the pathology with the patient and her . I also discussed the natural history, treated course, and prognosis of the disease as well as the rationale for adjuvant therapy. -Recommended a standard adjuvant course of capecitabine. -I discussed the rationale (based on the BILCAP trial), logistics, potential risks (including but not limited to fatigue, cytopenias, mucositis, diarrhea, nausea and vomiting, hand-foot skin syndrome, infections and the small potential for as a consequence of severe toxicity/complications of therapy), benefits and alternatives, as well as the personnel involved in the administration of capecitabine. I answered her questions in detail and she verbalized understanding and agreed with the recommended therapy. Please see the electronic consent document for details of doses and schedule. Plan: -Labs today including CBC, chemistry panel, hematinics and DPYD/UGT1A1 genotyping panel. -Plan to begin therapy in a few weeks once drain out and she's had some more time for recovery. -Aim for 6 months of treatment. -CTs in about 3 months. I spent a total of 60 minutes on the date of the service which included preparing to see the patient, [id number] patient care, completing clinical documentation, obtaining and/or reviewing separately obtained history, performing a medically appropriate examination, counseling and educating the patient/family/caregiver, ordering medications, tests, or procedures, communicating with other HCPs (not separately reported), and communicating results to the patient/family/caregiver. Tin Jose DO documented in this encounter [facility] 12-15-2023 History of Present illness Narrative [facility] SURGERY PROGRESS NOTE Subjective INTERVAL HISTORY OF PRESENT ILLNESS: Doing ok - still with significant fatigue and frustrated with a slow recovery Eating well, though less than usual - no nausea/vomiting No weight loss Drain with yellow purulent fluid out - approximately 30cc/day - will keep in place today Discussed pathology and plan for oncology follow-up with patient Objective PHYSICAL EXAM: There were no vitals taken for this visit. Physical Exam Performed GENERAL: Alert, no distress, cooperative LUNGS: Negative ABDOMEN: Soft, nontender and drain with yellow purulent output WOUND: Clean, dry and intact The remainder of the physical exam is noncontributory. Assessment/Plan 78 year old female s/p radical cholecystectomy with en bloc partial duodenectomy for gallbladder adenocarcinoma 11/25 with postop biliary leak from cystic duct stump managed with a drain. --Will call patient to check in on drain output next Friday and will schedule to come in for drain removal when output is decreased (<10cc/day for 3 days) --Discussed pathology with patient - will plan for adjuvant systemic therapy at [place] --Surveillance CT scan and follow-up with me 3 months after treatment Zara Jones MD [facility] Surgeon documented in this encounter [facility] 12-15-2023 Note [facility] 12-11-2023 Note [facility] 12-06-2023 Note [facility] 12-05-2023 Note [facility] 12-04-2023 Note [facility] 12-04-2023 Note [facility] 12-03-2023 Note [facility] 12-02-2023 Note [facility] 12[facility]02-2023 Note [facility] 12-01-2023 Note [facility] 11[facility]30-2023 Note [facility] 11-29-2023 Note [facility] 11-28-2023 Note [facility] 11-27-2023 Note [facility] 11-26-2023 Note [facility] 11-26-2023 Note [facility] 11[facility]26-2023 Note [facility] 11[facility]26-2023 Note [facility] 11-26-2023 Note [facility] 11-25-2023 Note [facility] 11-25-2023 Note [facility] 11-24-2023 Note [facility] 11-23-2023 Note [facility] 11-22-2023 Note [facility] 11-21-2023 Note [facility] 11-21-2023 Note HNO ID: [id number] Author: ZENY KOLB RN Service: Nursing Author Type: Registered Nurse Type: Nursing Progress Note Filed: 11/21/2023 18:23 Note Text: Dr. Sexton at bedside and aware of bp. No new orders [facility]21[facility]2023 [facility] 11-20-2023 Note HNO ID: [id number] Author: MICHAEL LOERA RN Service: Care Management Author Type: Registered Nurse Type: Care Mgt Progress Note Filed: 11/20/2023 11:29 Note Text: CARE MANAGEMENT DISCHARGE NOTE SERVICE DATE: November 20, 2023 SERVICE TIME: 11:28 AM Admission Date: 11/18/2023 LOS: 2 days Discharge Arrangement Pt discharged to [facility] this . Services Arranged None needed. Provider Name: Dr. Joe Muller Caregiver Assessment Pt from home with . Transportation Arrangements 2M set up transportation. Handoff Communication: Summary of care sent to PCP, GI, and general surgery. Additional Information: Pt discharged to [facility] this . No noted needs. Case closed. SIGNATURE: Michael Loera RN PATIENT NAME: Marie Blair DATE: November 20, 2023 TIME: 11:27 AM CONTACT #: [phone] [facility] 11-19-2023 Note HNO ID: [id number] Author: MAREN GUERRERO APRN.DANIELLA Service: Gastroenterology Author Type: Nurse Practitioner Type: Plan of Care Filed: 11/19/2023 16:29 Note Text: DEPARTMENT OF GASTROENTEROLOGY AND HEPATOLOGY [facility] INPATIENT VISIT DATE AND TIME 11/19/23 4:26 PM PLAN OF CARE PATIENT NAME: Marie Blair Interval History: MRCP results reviewed. Discussed with Dr. Leary. Patient will be scheduled for ERCP tomorrow. NPO after midnight. Orders placed. Recommendation for surgery to follow-up. call center associate indomethacin ordered to OR. Patient is on IV Zosyn. Plts 284. INR 1.0. Hgb. 11.6. K+ 4.2. MRCP 11/19/2023 1. Cholelithiasis, along with masslike irregular thickening of the bladder wall, highly suspicious for primary gallbladder cancer. The tumor appears to invade the adjacent liver and the duodenal bulb. 2. No definite evidence of metastatic disease in the abdomen. 3. Choledocholithiasis with upstream biliary ductal dilation. SIGNATURE: Maren Guerrero APRN.INSURANCE PROCESSING CLERK [facility] 11-19-2023 Note HNO ID: [id number] Author: SHERRILL MCCONNELL MD Service: Hospital Medicine Author Type: Physician Type: Progress Notes Filed: 11/19/2023 18:58 Note Text: Addendum: MRCP showed cholelithiasis with masslike irregular thickening of bladder wall suspicious for gallbladder cancer. Surgical team has called the [facility] for transfers and that hepatobiliary surgeon and patient got accepted. Ending bed at [facility]. INPATIENT PROGRESS NOTE SERVICE DATE: 11/19/2023 HOSPITAL COURSE: Subjective CHIEF COMPLAINT: Right upper quadrant abdominal pain INTERVAL HPI: Seen and examined. Patient is hungry complains of mild right upper quadrant abdominal pain. No nausea or vomiting or fever or chills. Current Outpatient Medications Medication Instructions aspirin, enteric coated (ASPIRIN, ENTERIC COATED) 81 mg, ORAL, DAILY atorvastatin (LIPITOR) 20 mg, ORAL, DAILY clopidogrel (PLAVIX) 75 mg, ORAL, DAILY lisinopril (ZESTRIL) 10 mg, ORAL, DAILY propylene glycoL (SYSTANE COMPLETE) 0.6 % drop 1 Drop, BOTH EYES, 3 TIMES DAILY Current Facility-Administered Medications Medication Dose Route Frequency NaCl 0.9% iv flush bag 20 mL INTRAVENOUS PRN heparin 5,000 Units injection 5,000 Units SUBCUTANEOUS q 12 H lactated ringers iv infusion 50 mL/hr INTRAVENOUS CONTINUOUS piperacillin-tazobactam iv piggyback 3.375 g in dextrose (iso-osmotic) 50 mL (ZOSYN) 3.375 g INTRAVENOUS q 6 H lisinopril 10 mg tab(s) (ZESTRIL) 10 mg ORAL DAILY atorvastatin 20 mg tab(s) (LIPITOR) 20 mg ORAL AT BEDTIME aspirin, enteric coated 81 mg tab(s) 81 mg ORAL DAILY iv contrast (radiology procedure) INTRAVENOUS DIRECTED PRN Objective PHYSICAL EXAM: General: Patient is alert and oriented x3 and is in no acute respiratory distress HEENT: Normal cephalic, atraumatic, PERRLA, TM's normal, Nose clear, Mouth normal Neck: Negative hepatojugular reflux or jugular venous distention, negative carotid bruit. Lungs: Clear to auscultation, no wheezing, rales, or rhonchi. Cardiac: Regular rhythm and rate, S1-S2 within normal limits, no murmurs, gallops were appreciated, no rubs. Abdomen: Soft, minimal right upper quadrant tenderness, nondistended, no HSM detected, bowel sounds are active. Extremities: [No edema, cyanosis, or clubbing. Skin: No rashes or breakdown. Musculoskeletal: normal MS exam, moves all extremities, DTR's normal Lymphatic: Negative cervical, supra-clavicular, groin lymphadenopathy. Neurologic: Cranial nerves from II-XII intact grossly, no focal deficits. Psychiatry: Normal affect. Glucose (mg/dL) Date Value 11/19/2023 93 Potassium (mmol/L) Date Value 11/19/2023 4.2 Sodium (mmol/L) Date Value 11/19/2023 140 Chloride (mmol/L) Date Value 11/19/2023 106 CO2 (mmol/L) Date Value 11/19/2023 29 Creatinine (mg/dL) Date Value 11/19/2023 0.80 BUN (mg/dL) Date Value 11/19/2023 15 Anion Gap (mmol/L) Date Value 11/19/2023 5 Calcium, Total (mg/dL) Date Value 11/19/2023 9.9 Estimated Creatinine Clearance: 58.5 mL/min (based on SCr of 0.8 mg/dL). CBC with diff: WBC 7.62 11/19/2023 RBC 4.05 11/19/2023 Hemoglobin 11.6 11/19/2023 Hematocrit 36.4 11/19/2023 MCV 89.9 11/19/2023 MCH 28.6 11/19/2023 MCHC 31.9 11/19/2023 RDW-CV 14.4 11/19/2023 Platelet Count 284 11/19/2023 MPV 9.5 11/19/2023 BP 126/62 Pulse 73 Temp (Src) 97.5 (Oral) Resp 17 Ht 5' 8 (1.73m) Wt 159 lb 3.2 oz (72.2kg) SpO2 95% BMI 24.21 kg/(m2). O2 Therapy: Room Air DATA: Diagnostic tests reviewed for today's visit: Most recent labs and imaging results. Assessment/Plan Principal Problem: 78 years old with a 3 weeks history of intermittent right quadrant abdominal pain found to have multiple gallstones and thickened gallbladder wall transferred to [facility] for further management and plan. Acute cholecystitis Choledocholithiasis Fatty liver -Complains of 3 weeks history of right upper quadrant intermittent achy abdominal pain ultrasound of the abdomen was obtained and showed fatty liver, multiple gallstones and thickened gallbladder wall with pericholecystic fluid, dilated common duct with calculus in the common bile duct. 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 Code Status: Code, discussed with the patient and she wants to be fully resuscitated. Medication and Non-Pharmacologic VTE Prophylaxis/Anticoagulants Anticoagulant AND Antiplatelet Medications (From admission, onward) Start Dose Route Frequency Last Action Ordered Stop 11/18/230 aspirin, enteric coated 81 mg tab(s) 81 mg ORAL DAILY Ordered (more content not included)... [facility] 11-19-2023 Note HNO ID: [id number] Author: HANK COCHRAN RN Service: ? Author Type: Registered Nurse Type: Nursing Progress Note Filed: 11/19/2023 10:10 Note Text: MRI screening form faxed. [facility] 11-19-2023 Note HNO ID: [id number] Author: SONIA VEE RT(R) Service: ? Author Type: Technologist Type: Progress Notes Filed: 11/19/2023 09:36 Note Text: Summary: MRI RADIOLOGY SERVICE PROGRESS NOTE DATE OF SERVICE: November 19, 2023 TIME OF SERVICE: 934 EVENT: EXAM/PROCEDURE NOT COMPLETED - NEED MRI SCREENING FORM FILLED OUT AND FAXED TO [facility] ADDITIONAL EVENT DETAILS: SIGNATURE: RT Oakley (R) PATIENT NAME: Marie Blair DATE: November 19, 2023 TIME: 9:35 AM PAGER/CONTACT #: [facility] 11-19-2023 Note HNO ID: [id number] Author: ESTRELLA GRACE RN Service: Care Management Author Type: Registered Nurse Type: Care Mgt Initial Assessment Filed: 11/19/2023 11:32 Note Text: CARE MANAGEMENT: ASSESSMENT AND DISCHARGE PLAN SERVICE DATE: November 19, 2023 SERVICE TIME: 924 PCP: Trever Billings MD, MD Primary Contact: Extended Emergency Contact Information Primary Emergency Contact: Shiv Blair Mobile Relation: Spouse Secondary Emergency Contact: Ruddy Blair Relation: Son Admission Status: Inpatient Insurance Provider: MEDICARE A AND B Discharge Planning requested by: Per Department Practice Potential Transition Plans Home Advance Directives Current Advance Directive: Health Care Power of Hostel Manager;Living Will In Chart: No Current Living Arrangements and Support Lives with: Spouse/significant other Type of Residence: Private Residence (House) Does the patient have to climb stairs at home?: No Support: Children, Spouse/significant other How do you manage to accomplish the following: Independent: Ambulation;Bathe/Shower;Dress;Meal s/Meal Prep;Going to the bathroom;Medication Management;Transportation to appointments/community Current Services/Equipment Current Post-Acute Service(s): None Discharge Planning Patient Goal(s): Be able to go home, General wellness [place] of Choice Explained: Are you interested in bedside delivery of your medications? No Discharge Planning Participant(s): Patient;Spouse/significant other Patient/Family Comments: Caregiver Assessment: Caregiver is ready, willing and able to meet the patient's needs as recommended by the inter-professional team: No Caregiver needed Transport at Discharge: Transportation Arrangements: Car Needs Prior to Discharge: Needs Prior to Discharge: None Post-Acute Discharge Plan: Chart reviewed. Spoke with pt and pt's at bedside. Admitted with choledocholithiasis. NPO. Surgery and GI consulted. EDWARD Hernandez. Pt from home with , normally independent with ADLs, drives and has no DME at home. Pt is current with Dr. Muller in [place]. D/C plan is home with . Denies any needs at this time. CM to follow. Intimate Partner Violence We have begun to talk to patients about safe and healthy relationships because it can have a large impact on your health. Do you feel safe around your partner or ex-partner?: Yes Food Insecurity Within the past 12 months, you worried that your food would run out before you got the money to buy more.: Never true Within the past 12 months, the food you bought just didn't last and you didn't have money to get more.: Never true Transportation Needs In the past 12 months, has lack of transportation kept you from medical appointments or from getting medications?: No In the past 12 months, has lack of transportation kept you from meetings, work, or from getting things needed for daily living?: No Housing Stability In the last 12 months, was there a time when you were not able to pay the mortgage or rent on time?: No At any time in the past 12 months, were you homeless or living in a jail (including now)?: No Utilities In the past 12 months has the electric, gas, oil, or water company threatened to shut off services in your home?: No Social Information Financial Resources: Retired SIGNATURE: Estrella Grace RN PATIENT NAME: Marie Blair DATE: November 19, 2023 TIME: 11:24 AM CONTACT #: [id number] [facility] 04-09-2022 Instructions Darrell Holland MD - 04/09/2022 10:50 AM EST Continue: Systane Complete solution instill 1 drop 3 times daily Both Eyes. If you have any questions please contact our office at [phone]. After office hours or on the weekend, please call Dr. Holland on his cell phone at [phone]. documented in this encounter [facility] 04-09-2022 History of Present illness Narrative ASSESSMENT/PLAN: 1. Fuchs' corneal dystrophy of both eyes - ICD9: 371.57, ICD10: H18.513 (primary diagnosis) Continue: Systane Complete solution instill 1 drop 3 times daily Both Eyes. 2. Nevus of choroid of right eye - ICD9: 224.6, ICD10: D31.31 - FUNDUS PHOTOS OU (BOTH EYES) Monitor 3. Pseudophakia of both eyes - ICD9: V43.1, ICD10: Z96.1 Intraocular lens implant in good position Both Eyes. 4. Essential hypertension - ICD9: 401.9, ICD10: I10 Continue to monitor with primary care physician. 5. Hypercholesteremia - ICD9: 272.0, ICD10: E78.00 Continue to monitor with primary care physician. Darrell Hollnad MD I have confirmed and edited as necessary the relevant ophthalmic history, review of systems, surgical history, and ophthalmological examination findings as obtained by the ophthalmic technical staff. I have seen and examined Marie Blair. I have discussed the examination findings, diagnosis, and treatment options with Marie Blair and/or her family. I have also reviewed and agree with the assessment and plan as stated above and agree with all its relevant components. I gave the patient the opportunity to ask questions about the findings, diagnosis, and treatment options. documented in this encounter [facility] 09-08-2021 Instructions Darrell Holland MD - 09/08/2021 10:49 AM EDT Current Ophthalmic Meds keTORolac (ACULAR) 0.5 % ophthalmic solution Use 1 Drop in the left eye three times daily. prednisoLONE acetate (PRED FORTE, ECONOPRED PLUS) 1 % ophthalmic suspension Use 1 Drop in the left eye three times daily. keTORolac (ACULAR) 0.5 % ophthalmic solution Use 1 Drop in the right eye four times daily. prednisoLONE acetate (PRED FORTE, ECONOPRED PLUS) 1 % ophthalmic suspension Use 1 Drop in the right eye four times daily. Continue: Systane Complete solution instill 1 drop 3 times daily Both Eyes. Continue post-operative care with Dr. Melara. If you have any questions please contact our office at [phone]. After office hours or on the weekend, please call Dr. Holland on his cell phone at [phone]. documented in this encounter [facility] 09-08-2021 History of Present illness Narrative ASSESSMENT/PLAN: 1. Status post cataract extraction and insertion of intraocular lens of right eye - ICD9: V45.61, V43.1, ICD10: Z98.41, Z96.1 (primary diagnosis) 2. Status post cataract extraction and insertion of intraocular lens of left eye - ICD9: V45.61, V43.1, ICD10: Z98.42, Z96.1 Current Ophthalmic Meds keTORolac (ACULAR) 0.5 % ophthalmic solution Use 1 Drop in the left eye three times daily. prednisoLONE acetate (PRED FORTE, ECONOPRED PLUS) 1 % ophthalmic suspension Use 1 Drop in the left eye three times daily. keTORolac (ACULAR) 0.5 % ophthalmic solution Use 1 Drop in the right eye four times daily. prednisoLONE acetate (PRED FORTE, ECONOPRED PLUS) 1 % ophthalmic suspension Use 1 Drop in the right eye four times daily. Continue: Systane Complete solution instill 1 drop 3 times daily Both Eyes. Continue post-operative care with Dr. Melara. Darrell Holland MD I have confirmed and edited as necessary the relevant ophthalmic history, review of systems, surgical history, and ophthalmological examination findings as obtained by the ophthalmic technical staff. I have seen and examined Marie Blair. I have discussed the examination findings, diagnosis, and treatment options with Marie Blair and/or her family. I have also reviewed and agree with the assessment and plan as stated above and agree with all its relevant components. I gave the patient the opportunity to ask questions about the findings, diagnosis, and treatment options. documented in this encounter [facility] 09-07-2021 Hospital Discharge instructions Darrell Holland MD - 09/07/2021 10:52 AM EDT Instructions After Cataract Surgery It is very important to follow these instructions after your eye surgery to ensure its success. A responsible adult must drive you home after the surgery. You might feel well, but the medicines given during the surgery might affect you for several hours. Do not drive or operate machinery for the rest of the day. We recommend that a responsible adult stay with you for 24 hours after surgery. Eye Protection - You may wear your glasses during the day. Before you go to sleep, put on the protective shield without a cotton patch. Activity - You may use your eyes for activities such as reading, writing, and watching television as much as you choose. Your vision might be blurred, but you will not harm your operated eye by trying to use it. Ask about driving when you see your doctor at your follow up appointment. Avoid the following activities for 2 weeks after surgery: Heavy lifting (over 20 pounds) Swimming Strenuous exercise or activity Working in matt places Activities that might injure your eye Daily hygiene - You may shower and wash your hair and face as usual, but DO NOT rub your operated eye. Try to avoid getting soap or water in your eyes. Pain management - Pain after eye surgery is not common. Most people do not need oral pain medicine. If you do have some eye pain or a headache, you may take acetaminophen unless there is some reason you cannot take this medication (i.e., liver disease, allergies, etc.). Follow the instructions on the bottle. Diet - If you feel sick to your stomach, drink only clear liquids. Clear liquids include clear broth, tea, strained fruit juices, strained vegetable soup, black coffee, plain gelatin, and oneal robb. Eat a regular meal when you do not feel sick. Do not drink alcoholic beverages for 24 hours after the surgery. Eye medications - If you have been prescribed or given eye drops and/or ointment, please bring them, this handout and any previous eye drops/ointments you have to your follow up appointment. Your eye medications will be explained during your follow up appointment. How to give yourself eye drops or ointment Wash your hands with soap and warm water. Dry them with a clean towel. If you are putting in your own eye medicine, lie down or use a mirror. Ask someone to check that you are getting the medicine in your eye. Look up to the ceiling with both eyes. Pull the lower lid of your eye down with one hand. Hold the medicine bottle or tube in your other hand. (if necessary, rest part of your hand on your forehead to keep it steady). Place a drop of medicine or a small amount of ointment inside your lower lid. The tip of the medicine bottle or tube should not touch your eye. Close your eyes for a minute after putting in the medicine. If you are prescribed both eye drops and eye ointment, use the eye drops first. If you have more than one eye medicine to put in your eyes, wait about 5 minutes after the first medicine before putting the second medicine. Call your surgeon immediately if you experience: Increased or severe eye pain Bleeding from the eye Sudden decrease in vision or decreased ability to see light Discharge from the eye Any questions or problems Call your doctor immediately or go to the nearest emergency room if you experience: Nausea or vomiting that won't go away Chest pain Leg cramps A temperature above 101 F or 38.3 C Trouble breathing Contact If you have any questions please contact our office at [phone]. After office hours or on the weekend, please call Dr. Holland on his cell phone at [phone]. documented in this encounter [facility] 09-07-2021 Miscellaneous Notes [place] [address] [place] [facility] OPERATIVE REPORT LOG ID: [id number] Surgery/Procedure Date: 09/07/2021 Incision/Procedure Start Time: 10:03 AM Incision Close/Procedure End Time: 10:15 AM NAME: Marie Carrizales Blair [facility] #: [id number] Surgeon(s)/Proceduralist(s) and Press Operator Assistant(s): Surgeon(s) and Role: * Darrell Holland MD - Primary ANESTHESIA: Monitored Anesthesia Care OPERATIONS: Phacoemulsification with Posterior Chamber Lens Implant Right eye. 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 OPERATIVE INDICATIONS: Patient positive for blurred vision, difficulty reading, driving, watching TV and complaints of glare. OPERATIVE PROCEDURE: The patient was brought to the operating room and given combined anesthesia with IV sedation. The operative eye was prepped and draped in the usual sterile manner. Betadine ophthalmic solution was instilled into the conjunctival sac and left in place for 3 minutes. The eyelids we re retracted with Renetta locking wire speculum. Conjunctival sac was irrigated with the help of balanced salt solution. A paracentesis incision was made approximately 30 away from the planned surgical incision site with the help of MVR blade. 1% lidocaine MPF was injected through the paracentesis incision. A near limbal clear corneal incision was fashioned in the temporal quadrant just outside the vascular arcade with the help of slit blade and Viscoat was instilled into the anterior chamber to firm the eye. Under Viscoat cover, a circular continuous tear capsulorrhexis was made by using coaxial capsulorrhexis process. Hydrodissection and hydrodelineation of the cataract was then done with balanced salt solution. The phacoemulsifier was tested and found to be operating properly. The cataractous lens nucleus was then extracted using phacoemulsification in the capsular bag. Residual cortex was then aspirated by using soft-tipped irrigation aspiration cannula. The posterior capsule was then polished with the help of irrigation aspiration tip. The anterior chamber and the capsular bag were filled with viscoelastic. The intraocular lens was taken from its sterile wrapping, inspected under the surgical microscope and found to be in good condition. The pre-loaded IOL was injected into the capsular bag under the viscoelastic. The lens implant was then rotated until the optic was well centered. The residual viscoelastic was then removed from the capsular bag and the anterior chamber, using the soft-tipped irrigation aspiration cannula. The anterior chamber was formed with BSS and Vigamox was injected into the capsul bag and behind the iris through the side port incision. At the end of the procedure, the edges of the incision were hydrated by using balanced salt solution. Anterior chamber was inflated with the help of BSS to moderate tension. The surgical incisions were then inspected and found to be water-tight. The eyelid speculum was removed. Betadine ophthalmic solution was instilled into the conjunctival sac. The patient tolerated the procedure well and left the operating room in good condition. Implant Name Type Inv. Item Serial No. Director Sterile Processing Lot No. LRB Model Num No. Used LENS ACRYSOF IQ +16 DIOPTER 0 D BICONVEX ACRYLIC 13MM IOL 1 PIECE FOLDABLE - [id number] Intraocular Lens LENS ACRYSOF IQ +16 DIOPTER 0 D BICONVEX ACRYLIC 13MM IOL 1 PIECE FOLDABLE [id number] [employer] Right SN60WF 16.0 1 Estimated Blood Loss: None Specimens: None Drains: None Complications: None Participation: I/primary surgeon/proceduralist performed the entire procedure. Darrell Holland M..D. 09/07/2021 , 10:53 AM documented in this encounter [facility] 09-07-2021 History and physical note UPDATED HISTORY AND PHYSICAL EXAMINATION SERVICE DATE: 09/07/2021 SERVICE TIME: 9:21 AM PHYSICAL EXAM MUST BE COMPLETED ON ADMISSION The History and Physical (completed in the past 30 days) has been reviewed and the patient has been examined. The contents accurately reflect the patient's condition with the following additions or revisions since the H&P was completed. Examination indicates no changes. This H&P can be found in the Electronic Medical Record dated 08-31-21. SIGNATURE: Darrell Holland MD PATIENT NAME: Marie Blair DATE: September 07, 2021 TIME: 9:21 AM HISTORY AND PHYSICAL EXAMINATION SERVICE DATE: 08/31/2021 SERVICE TIME: PRIMARY CARE PHYSICIAN: Trever Billings MD REASON FOR VISIT: Marie Blair is a 76 year old female who is being seen for Combined age related cataract right eye The patient has the following: ACTIVE PROBLEM LIST Fuchs' Corneal Dystrophy of Both Eyes Combined Form of Age-Related Cataract, Right Eye Essential Hypertension Status Post Cataract Extraction and Insertion of Intraocular Lens of Left Eye SUBJECTIVE CHIEF COMPLAINT: Combined age related cataract right eye HPI: Blurred Vision, difficulty with reading, difficulty with watching television, dryness, glare PAST MEDICAL HISTORY Diagnosis Date Essential hypertension History of TIA (transient ischemic attack) 2010 Hypercholesteremia PAST SURGICAL HISTORY Procedure Laterality Date REMV CATARACT EXTRACAP,INSERT LENS Left 08/30/2021 SN60WF +16.5 D FAMILY HISTORY Problem Relation Age of Onset No Ocular Disease No Family History SOCIAL HISTORY: Social History Tobacco Use Smoking status: Never Smoker Smokeless tobacco: Never Used Substance Use Topics Alcohol use: Not on file Drug use: Not on file MEDICATIONS: Prior to Admission medications as of 08/31/21 1420 Medication Sig Last Dose Taking lisinopril (ZESTRIL, PRINIVIL) 10 mg tablet Take 10 mg by mouth once daily. Taking Yes clopidogrel (PLAVIX) 75 mg tablet Take 75 mg by mouth once daily. Taking Yes atorvastatin (LIPITOR) 20 mg tablet Take 20 mg by mouth once daily. Taking Yes propylene glycoL (SYSTANE COMPLETE) 0.6 % drop Use 1 Drop in both eyes three times daily. Taking Yes keTORolac (ACULAR) 0.5 % ophthalmic solution Use 1 Drop in the left eye four times daily. prednisoLONE acetate (PRED FORTE, ECONOPRED PLUS) 1 % ophthalmic suspension Use 1 Drop in the left eye four times daily. keTORolac (ACULAR) 0.5 % ophthalmic solution Use 1 Drop in the right eye four times daily. prednisoLONE acetate (PRED FORTE, ECONOPRED PLUS) 1 % ophthalmic suspension Use 1 Drop in the right eye four times daily. Please bring unopened medication to hospital on 09/07/2021 fluorometholone (FML LIQUID FILM) 0.1 % ophthalmic suspension Use 1 Drop in both eyes three times daily. No medication comments found. CURRENT ALLERGIES: ALLERGIES No Known Allergies REVIEW OF SYSTEMS: PAIN ASSESSMENT: General: No weight loss, malaise or fevers. Neuro: Essential hypertension Respiratory: No history of current cough or dyspnea, or pneumonia in the past 6 weeks. No history of respiratory/pulmonary symptoms or problems Cardiovascular: Positive for: Essential hypertension GI: No history of GI symptoms or problems. No history of esophageal varices, recent ascites, or ETOH greater than 2 drinks per day. : No history of UTI in past 6 weeks. No history of renal failure. Not currently on or requiring dialysis. No history of symptoms or problems. NEON SIGN MAKER: Negative for abnormal vaginal bleeding, abnormal vaginal discharge. : Denies Endocrine: No history of diabetes. Has not taken steroids within the past 30 days. No history of endocrinological symptoms or problems. Hematology: See HPI Oncology: No history of CA metastasis, chemo within 30 days, or radiotherapy within 90 days. Has not lost 10% of body wt in 6 months. No history of oncological symptoms or problems. Psych: No history of psychiatric symptoms or problems. Musculoskeletal: Negative for joint pain or swelling, back pain or muscle pain. Skin: Negative for lesions, rash and itching. PHYSICAL EXAM: VITALS: BP 135/80 Pulse 65 General: Alert and oriented Skin: Normal color, no rash, no lesions. HEENT: EOM, pupils equal, round and reactive. Cardiovascular: Normal S1 & S2, no rubs, murmurs or gallops. No JVD. Pulse regular. Lungs: Normal breath sounds, no wheezes or crackles. Abdomen: Soft, non-tender, no rigidity. Extremities: No deformity, no edema or tenderness, no joint swelling or clubbing. Neurological: Normal cognition and motor skills. Pulses: Carotid and radial pulses normal +2. Diagnostic tests reviewed for today's visit: No new labs ASSESSMENT Medication and Non-Pharmacologic VTE Prophylaxis/Anticoagulants VTE Prophylaxis: VTE prophylaxis appropriate Impression: There is no known pertinent medical condition which may affect brenda-operative course Clinical Risk Factors for Possible Cardiac Complications: None Patient is scheduled for a low-risk procedure. FUNCTIONAL STATUS: Walk indoors, such as around the house (1.75 METs) Functional Class (NYHA): N/A [facility]: Not obtained PLAN CONSULTS: Patient does not require consults for optimization at this time. The Following Tests/Procedures Have Been Initiated: None Instructions Given to Patient: Patient given verbal and written preop instructions and voices comprehension and compliance. SIGNATURE: Darrell Holland MD PATIENT NAME: Marie Blair DATE: August 31, 2021 TIME: 2:37 PM PAGER/CONTACT #: documented in this encounter [facility] 09-04-2021 Nurse Note Pre-op Call completed. Pt states that this is her second procedure with us. Pt instructed to take blood pressure pill the morning of procedure with a small sip of water. Pt instructed to call with any questions, and informed that staff will call with an arrival time. documented in this encounter [facility] 08-31-2021 History and physical note HISTORY AND PHYSICAL EXAMINATION SERVICE DATE: 08/31/2021 SERVICE TIME: PRIMARY CARE PHYSICIAN: Trever Billings MD REASON FOR VISIT: Marie Blair is a 76 year old female who is being seen for Combined age related cataract right eye The patient has the following: ACTIVE PROBLEM LIST Fuchs' Corneal Dystrophy of Both Eyes Combined Form of Age-Related Cataract, Right Eye Essential Hypertension Status Post Cataract Extraction and Insertion of Intraocular Lens of Left Eye SUBJECTIVE CHIEF COMPLAINT: Combined age related cataract right eye HPI: Blurred Vision, difficulty with reading, difficulty with watching television, dryness, glare PAST MEDICAL HISTORY Diagnosis Date Essential hypertension History of TIA (transient ischemic attack) 2010 Hypercholesteremia PAST SURGICAL HISTORY Procedure Laterality Date REMV CATARACT EXTRACAP,INSERT LENS Left 08/30/2021 [id number] +16.5 D FAMILY HISTORY Problem Relation Age of Onset No Ocular Disease No Family History SOCIAL HISTORY: Social History Tobacco Use Smoking status: Never Smoker Smokeless tobacco: Never Used Substance Use Topics Alcohol use: Not on file Drug use: Not on file MEDICATIONS: Prior to Admission medications as of 08/31/21 1420 Medication Sig Last Dose Taking lisinopril (ZESTRIL, PRINIVIL) 10 mg tablet Take 10 mg by mouth once daily. Taking Yes clopidogrel (PLAVIX) 75 mg tablet Take 75 mg by mouth once daily. Taking Yes atorvastatin (LIPITOR) 20 mg tablet Take 20 mg by mouth once daily. Taking Yes propylene glycoL (SYSTANE COMPLETE) 0.6 % drop Use 1 Drop in both eyes three times daily. Taking Yes keTORolac (ACULAR) 0.5 % ophthalmic solution Use 1 Drop in the left eye four times daily. prednisoLONE acetate (PRED FORTE, ECONOPRED PLUS) 1 % ophthalmic suspension Use 1 Drop in the left eye four times daily. keTORolac (ACULAR) 0.5 % ophthalmic solution Use 1 Drop in the right eye four times daily. prednisoLONE acetate (PRED FORTE, ECONOPRED PLUS) 1 % ophthalmic suspension Use 1 Drop in the right eye four times daily. Please bring unopened medication to hospital on 09/07/2021 fluorometholone (FML LIQUID FILM) 0.1 % ophthalmic suspension Use 1 Drop in both eyes three times daily. No medication comments found. CURRENT ALLERGIES: ALLERGIES No Known Allergies REVIEW OF SYSTEMS: PAIN ASSESSMENT: General: No weight loss, malaise or fevers. Neuro: Essential hypertension Respiratory: No history of current cough or dyspnea, or pneumonia in the past 6 weeks. No history of respiratory/pulmonary symptoms or problems Cardiovascular: Positive for: Essential hypertension GI: No history of GI symptoms or problems. No history of esophageal varices, recent ascites, or ETOH greater than 2 drinks per day. : No history of UTI in past 6 weeks. No history of renal failure. Not currently on or requiring dialysis. No history of symptoms or problems. NEON SIGN MAKER: Negative for abnormal vaginal bleeding, abnormal vaginal discharge. : Denies Endocrine: No history of diabetes. Has not taken steroids within the past 30 days. No history of endocrinological symptoms or problems. Hematology: See HPI Oncology: No history of CA metastasis, chemo within 30 days, or radiotherapy within 90 days. Has not lost 10% of body wt in 6 months. No history of oncological symptoms or problems. Psych: No history of psychiatric symptoms or problems. Musculoskeletal: Negative for joint pain or swelling, back pain or muscle pain. Skin: Negative for lesions, rash and itching. PHYSICAL EXAM: VITALS: BP 135/80 Pulse 65 General: Alert and oriented Skin: Normal color, no rash, no lesions. HEENT: EOM, pupils equal, round and reactive. Cardiovascular: Normal S1 & S2, no rubs, murmurs or gallops. No JVD. Pulse regular. Lungs: Normal breath sounds, no wheezes or crackles. Abdomen: Soft, non-tender, no rigidity. Extremities: No deformity, no edema or tenderness, no joint swelling or clubbing. Neurological: Normal cognition and motor skills. Pulses: Carotid and radial pulses normal +2. Diagnostic tests reviewed for today's visit: No new labs ASSESSMENT Medication and Non-Pharmacologic VTE Prophylaxis/Anticoagulants VTE Prophylaxis: VTE prophylaxis appropriate Impression: There is no known pertinent medical condition which may affect brenda-operative course Clinical Risk Factors for Possible Cardiac Complications: None Patient is scheduled for a low-risk procedure. FUNCTIONAL STATUS: Walk indoors, such as around the house (1.75 METs) Functional Class (NYHA): N/A [facility]: Not obtained PLAN CONSULTS: Patient does not require consults for optimization at this time. The Following Tests/Procedures Have Been Initiated: None Instructions Given to Patient: Patient given verbal and written preop instructions and voices comprehension and compliance. SIGNATURE: Darrell Holland MD PATIENT NAME: Marie Blair DATE: August 31, 2021 TIME: 2:37 PM PAGER/CONTACT #: documented in this encounter [facility] 08-31-2021 Instructions Darrell Holland MD - 08/31/2021 2:33 PM EDT Please bring unopened medications to hospital on 09/07/2021 Current Ophthalmic Meds keTORolac (ACULAR) 0.5 % ophthalmic solution Starting on 09/07/2021. Use 1 Drop in the right eye four times daily. prednisoLONE acetate (PRED FORTE, ECONOPRED PLUS) 1 % ophthalmic suspension Starting on 09/07/2021. Use 1 Drop in the right eye four times daily. Please bring unopened medication to hospital on 09/07/2021 Continue: Systane Complete Artificial Tears - Use 1 Drop into both eyes three times a day. Fluorometholone 1 drop in the right eye three times daily Use Ruben ointment at bedtime left eye Use post op medications as directed: Current Ophthalmic Meds propylene glycoL (SYSTANE COMPLETE) 0.6 % drop Use 1 Drop in both eyes three times daily. keTORolac (ACULAR) 0.5 % ophthalmic solution Use 1 Drop in the left eye four times daily for 7 days, then three times daily until 10/04/2021 prednisoLONE acetate (PRED FORTE, ECONOPRED PLUS) 1 % ophthalmic suspension Use 1 Drop in the left eye four times daily for 7 days, then three times daily until 10/04/2021 If you have any questions please contact our office at [phone]. After office hours or on the weekend, please call Dr. Holland on his cell phone at [phone]. documented in this encounter [facility] 08-31-2021 History of Present illness Narrative ASSESSMENT/PLAN: 1. Combined form of age-related cataract, right eye - ICD9: 366.19, ICD10: H25.811 (primary diagnosis) PHYSICAL EXAM: Vital Signs: Blood pressure 135/80, pulse 65. Respiratory: Normal breath sounds, no wheezing. CARD: Normal heart sounds 1 & 2, normal sinus rhythm. Cataract Presurgical Documentation Cataract: right eye Patient reported symptoms: Associated symptoms Positive for: Blurred Vision, difficulty with reading, difficulty with watching television, dryness, glare Negative for: Itching, flashes, floaters, tearing, halos, burning Current Visual Acuity: Right Eye Distance CC 20/40 Left Eye Distance SC 20/25 Glare Testing: Right Eye Medium 20/80 Visual Function: Marie Blair states that the decline in vision from the cataract impedes the ability to read, watch television as well as other activities of daily living. Marie Blair has confirmed that she is no longer able to function adequately on a day-to-day basis because of her current visual condition. Further, it is my medical opinion that the cataract is the primary cause, or at least a significantly contributory cause of her visual dysfunction. With uncomplicated cataract surgery and lens implantation, it is my expectation that her visual function and quality of life will improve, significantly. The risks, benefits, alternatives, personnel and complications of cataract surgery with lens implantation were discussed with Marie Blair in detail. she appeared to understand and asked that I proceed with plans for surgery. Patient wishes to have traditional cataract surgery with basic Intraocular lens right eye 09/07/2021 at [facility]. Patient wishes to have cataract surgery with the option stated above. Patient understands that an intraocular lens implant does not necessarily replace the need for glasses. Patient understands that it is impossible for the surgeon to inform him/her of every possible complication that may occur. The surgeon has answered all of the patient's questions. Patient understands that if he/she has a mature or dense cataract, pseudoexfoliation cataract, or history of use of Flomax, he/she may require the use of Maluyugin Ring and/or Vision Blue during surgery. Patient understands the risks, benefits, and alternatives to surgery. Patient understands the need for glasses for all near and intermediate vision including reading and computer work. He/she declines monovision. He/she was offered a Toric Intraocular lens to correct astigmatism, but he/she declines the Toric Intraocular lens. Patient understands that he/she will need glasses to correct residual astigmatism at all distances after cataract surgery. Please bring unopened medications to hospital on 09/07/2021 Current Ophthalmic Meds keTORolac (ACULAR) 0.5 % ophthalmic solution Starting on 09/07/2021. Use 1 Drop in the right eye four times daily. prednisoLONE acetate (PRED FORTE, ECONOPRED PLUS) 1 % ophthalmic suspension Starting on 09/07/2021. Use 1 Drop in the right eye four times daily. Please bring unopened medication to hospital on 09/07/2021 Continue: Systane Complete Artificial Tears - Use 1 Drop into both eyes three times a day. Fluorometholone 1 drop in the right eye three times daily 2. Status post cataract extraction and insertion of intraocular lens of left eye - ICD9: V45.61, V43.1, ICD10: Z98.42, Z96.1 Use post op medications as directed: Current Ophthalmic Meds propylene glycoL (SYSTANE COMPLETE) 0.6 % drop Use 1 Drop in both eyes three times daily. keTORolac (ACULAR) 0.5 % ophthalmic solution Use 1 Drop in the left eye four times daily for 7 days, then three times daily until 10/04/2021 prednisoLONE acetate (PRED FORTE, ECONOPRED PLUS) 1 % ophthalmic suspension Use 1 Drop in the left eye four times daily for 7 days, then three times daily until 10/04/2021 Use Ruben ointment at bedtime left eye Follow up next week with Dr. Melara for post op visit 3. Fuchs' corneal dystrophy of both eyes - ICD9: 371.57, ICD10: H18.513 Patient understands if condition worsens, may need DMEK in the future 4. Essential hypertension - ICD9: 401.9, ICD10: I10 Continue care with primary care physician Darrell Holland MD I have confirmed and edited as necessary the relevant ophthalmic history, review of systems, surgical history, and ophthalmological examination findings as obtained by the ophthalmic technical staff. I have seen and examined Marei Blair. I have discussed the examination findings, diagnosis, and treatment options with Marie Blair and/or her family. I have also reviewed and agree with the assessment and plan as stated above and agree with all its relevant components. I gave the patient the opportunity to ask questions about the findings, diagnosis, and treatment options. documented in this encounter [facility] 08-31-2021 History of Past i llness Narrative Problem Noted Date Resolved Date Status post cataract extract ion and insertion of intraocular lens of left eye 08/31/2021 04/09/2022 Combined form of age-related cataract, right eye 08/07/2021 09/07/2021 Combined form of age-related cataract, left eye 08/07/2021 08/31/2021 documented as of this encounter (statuses as of 04/09/2022) [facility] NotePost Operative Note: Post-Procedure Diagnosis: 1. Combined Form Age Related Cataract Left Eye Procedure: 1. Cataract Extraction with Intraocular Lens Implant Left Eye Surgeon: Darrell Holland MD Resident/Fellow/Other Press Operator Assistant: None Estimated Blood Loss (mL): none Specimen: no Findings: 1. Combined Form Age Related Cataract Left Eye Operative Report Dictated: Dictation: not applicable - note contains Operative Report Operative Report: The patient was correctly identified in the preop area and the operative eye was marked with a marking pen. The operative eye was dilated in the preoperative area. The patient was then taken to the operating room where timeout was performed before starting the procedure. Combined anesthesia with intravenous sedation and topical tetracaine eyedrops were given the left eye. The operative eye was prepped and draped in the standard sterile ophthalmic fashion in preparation for ophthalmic surgery. A Renetta wire speculum was then inserted between the eyelids of the left eye and the operating microscope was placed over the left eye. A paracentesis incision was made approximately 30 away from the planned surgical incision site with the help of MVR blade. 1% lidocaine MPF with Phenylephrine 1.5% PF was injected into the anterior chamber through the paracentesis incision. A near limbal clear corneal incision was fashioned in the temporal quadrant just outside the vascular arcade and Viscoat was injected into anterior chamber to firm the eye. A bent needle cystotome was used and Utrata forceps were utilized to create a continuous curvilinear capsulorrhexis. BSS was injected beneath the anterior capsule to hydrodissect the nucleus from adjacent cortex and capsule. The residual cortex were then aspirated with irrigation aspiration handpiece. The posterior capsule was then polished with the help of soft irrigation-aspiration tip. Provisc viscoelastic was then injected into the eye to reform the anterior chamber and to open the capsular bag. The intraocular lens implant was taken from its sterile wrapping, inspected under the surgical microscope and found to be in good condition. The intraocular lens implant 16.5D was injected into the capsule bag. The Provisc was then aspirated from the anterior chamber and from behind the intraocular lens implant. The anterior chamber was inflated with the help of BSS to moderate tension. The edges of the surgical incision were then hydrated with the help of BSS. Vigamox was then injected into the anterior chamber and into the capsule bag through the paracentesis incision. The surgical wound was then inspected and found to be watertight. The wire speculum and drapes were then removed. Pred Forte eyedrops, Acular eyedrops and Betadine 5% sterile ophthalmic solution were instilled in the conjunctival sac. The patient tolerated the procedure well and was taken to recovery room in stable condition. Attestation: Note Completion: Attending AttestationI performed the procedure without a resident Electronic Signatures: Darrell Holland) (Signed 30-Aug-2021 12:42) Authored: Post Operative Note, Note Completion Last Updated: 30-Aug-2021 12:42 by Darrell Holland)[facility] 08-30-2021 NoteHistory & Physical Reviewed: I have reviewed the History and Physical dated: 21-Aug-2021 History and Physical reviewed and relevant findings noted. Patient examined to review pertinent physical findings.: No significant changes Home Medications Reviewed: no changes noted Allergies Reviewed: no changes noted ERAS (Enhanced Recovery After Surgery): ERAS Patient: no Consent: COVID-19 Consent: COVID-19 Risk ConsentSurgeon has reviewed chacko risks related to the risk of bridgett COVID-19 and if they contract COVID-19 what the risks are. Electronic Signatures: Darrell Holland) (Signed 30-Aug-2021 11:12) Authored: History & Physical Reviewed, ERAS, Consent, Note Completion Last Updated: 30-Aug-2021 11:12 by Darrell Holland)[facility] 08-21-2021 Instructions* Patient Instructions* Darrell Holland MD - 08/21/2021 11:06 AM EDT Current Ophthalmic Meds fluorometholone (FML LIQUID FILM) 0.1 % ophthalmic suspension Use 1 Drop in both eyes three times daily. propylene glycoL (SYSTANE COMPLETE) 0.6 % drop Use 1 Drop in both eyes three times daily. If you have any questions please contact our office at [phone]. After office hours or on the weekend, please call Dr. Holland on his cell phone at [phone]. [facility] History of Present illness Narrative* Darrell Holland MD - 08/21/2021 11:03 AM EDT ASSESSMENT/PLAN: 1. Combined form of age-related cataract, left eye - ICD9: 366.19, ICD10: H25.812 (primary diagnosis) Cataract Presurgical Documentation Cataract: Both eyes (OU) Patient reported symptoms: Associated symptoms Positive for: Blurred Vision, floaters, difficulty with driving, difficulty with reading, difficulty with watching television, dryness, halos, glare Negative for: Eye Redness, foreign body sensation, tearing Current Visual Acuity: Right Eye Distance CC 20/40 Left Eye Distance CC 20/50 Glare Testing: Right Eye Medium 20/70 Left Eye Medium 20/80 Visual Function: Marie Blair states that the decline in vision from the cataract impedes the ability to drive and to read as well as other activities of daily living. Marie Blair has confirmed that she is no longer able to function adequately on a day-to-day basis because of her current visual condition. Further, it is my medical opinion that the cataract is the primary cause, or at least a significantly contributory cause of her visual dysfunction. With uncomplicated cataract surgery and lens implantation, it is my expectation that her visual function and quality of life will improve, significantly. The risks, benefits, alternatives, personnel and complications of cataract surgery with lens implantation were discussed with Marie Blair in detail. she appeared to understand and asked that I proceed with plans for surgery. PHYSICAL EXAM: Vital Signs: Blood pressure 135/80, pulse 65. Respiratory: Normal breath sounds, no wheezing. CARD: Normal heart sounds 1 & 2, normal sinus rhythm. Continue: Current Ophthalmic Meds fluorometholone (FML LIQUID FILM) 0.1 % ophthalmic suspension Use 1 Drop in both eyes three times daily. propylene glycoL (SYSTANE COMPLETE) 0.6 % drop Use 1 Drop in both eyes three times daily. Patient wishes to have traditional cataract surgery with basic Intraocular lens left eye on August at [facility]. Patient wishes to have cataract surgery with the option stated above. Patient understands that an intraocular lens implant does not necessarily replace the need for glasses. Patient understands that it is impossible for the surgeon to inform him/her of every possible complication that may occur. The surgeon has answered all of the patient's questions. Patient understands that if he/she has a mature or dense cataract, pseudoexfoliation cataract, or history of use of Flomax, he/she may require the use of Maluyugin Ring and/or Vision Blue during surgery. Patient understands the risks, benefits, and alternatives to surgery. 2. Combined form of age-related cataract, right eye - ICD9: 366.19, ICD10: H25.811 - plan on scheduling cataract surgery once the left eye is stable. 3. Fuchs' corneal dystrophy of both eyes - ICD9: 371.57, ICD10: H18.513 -monitor. Patient understands if condition worsens, may need DMEK in the future 4. Punctate keratitis, bilateral - ICD9: 370.21, ICD10: H16.143 Current Ophthalmic Meds fluorometholone (FML LIQUID FILM) 0.1 % ophthalmic suspension Use 1 Drop in both eyes three times daily. propylene glycoL (SYSTANE COMPLETE) 0.6 % drop Use 1 Drop in both eyes three times daily. 5. Essential hypertension - ICD9: 401.9, ICD10: I10 -continue care with primary care physician Darrell Holland MD I have confirmed and edited as necessary the relevant ophthalmic history, review of systems, surgical history, and ophthalmological examination findings as obtained by the ophthalmic technical staff.I have seen and examined Marie Blair. I have discussed the examination findings, diagnosis, andtreatment options with Marie Blair and/or her family. I have also reviewed and agree with the assessment and plan as stated above and agree with all its relevant components. I gave the patient the opportunity to ask questions about the findings, diagnosis, and treatment options. [facility] History of Past illness Narrative* Problem Noted Date Resolved Date Combined form of age-related cataract, left eye 08/07/2021 08/31/2021 documented as of this encounter (statuses as of 08/31/2021) [facility] History of Past illness Narrative* Problem Noted Date Resolved Date Combined form of age-related cataract, right eye 08/07/2021 09/07/2021 Combined form of age-related cataract, left eye 08/07/2021 08/31/2021 documented as of this encounter (statuses as of 09/08/2021) [facility] History of Past illness Narrative* Problem Noted Date Resolved Date Combined form of age-related cataract, right eye 08/07/2021 09/07/2021 Combined form of age-related cataract, left eye 08/07/2021 08/31/2021 documented as of this encounter (statuses as of 09/08/2021) [facility] Instructions* Patient Instructions* Darrell Holland MD - 08/07/2021 10:23 AM EDT Use medications as directed: Current Ophthalmic Meds fluorometholone (FML LIQUID FILM) 0.1 % ophthalmic suspension Use 1 Drop in both eyes three times daily. propylene glycoL (SYSTANE COMPLETE) 0.6 % drop Use 1 Drop in both eyes three times daily. Surgery is scheduled for 08/30/2021 left eye at [facility] If you have any questions please contact our office at [phone]. After office hours or on the weekend, please call Dr. Holland on his cell phone at [phone]. [facility] History of Present illness Narrative* Darrell Holland MD - 08/07/2021 9:38 AM EDT ASSESSMENT/PLAN: 1. Combined form of age-related cataract, right eye - ICD9: 366.19, ICD10: H25.811 (primary diagnosis) 2. Combined form of age-related cataract, left eye - ICD9: 366.19, ICD10: H25.[address] Melara's notes and examination today Blood pressure 135/80, pulse 65. Cataract Presurgical Documentation Cataract: Both eyes Patient reported symptoms: Associated symptoms Positive for: Blurred Vision, decreased vision, difficulty with driving, difficulty with reading, difficulty with watching television, halos, glare, starbursts Negative for: Eye Redness, foreign body sensation, eye discharge, tearing Current Visual Acuity: Right Eye Distance CC 20/40 Left Eye Distance CC 20/50 Glare Testing: Right Eye Medium 20/70 Left Eye Medium 20/80 Visual Function: Marie Blair states that the decline in vision from the cataract impedes the ability to read, watch television as well as other activities of daily living. Marie Blair has confirmed that she is no longer able to function adequately on a day-to-day basis because of her current visual condition. Further, it is my medical opinion that the cataract is the primary cause, or at least a significantly contributory cause of her visual dysfunction. With uncomplicated cataract surgery and lens implantation, it is my expectation that her visual function and quality of life will improve, significantly. The risks, benefits, alternatives, personnel and complications of cataract surgery with lens implantation were discussed with Marie Blair in detail. she appeared to understand and asked that I proceed with plans for surgery. Patient wishes to have traditional cataract surgery with basic Intraocular lens left eye [facility]. Patient wishes to have cataract surgery with the option stated above. Patient understands that an intraocular lens implant does not necessarily replace the need for glasses. Patient understands that it is impossible for the surgeon to inform him/her of every possible complication that may occur. The surgeon has answered all of the patient's questions. Patient understands that if he/she has a mature or dense cataract, pseudoexfoliation cataract, or history of use of Flomax, he/she may require the use of Maluyugin Ring and/or Vision Blue during surgery. Patient understands the risks, benefits, and alternatives to surgery. Follow up for consents 3. Fuchs' corneal dystrophy of both eyes - ICD9: 371.57, ICD10: H18.513 Patient understands if condition worsens, may need DMEK in the future 4. Punctate keratitis, bilateral - ICD9: 370.21, ICD10: H16.143 Use medications as directed: Current Ophthalmic Meds fluorometholone (FML LIQUID FILM) 0.1 % ophthalmic suspension Use 1 Drop in both eyes three times daily. propylene glycoL (SYSTANE COMPLETE) 0.6 % drop Use 1 Drop in both eyes three times daily. 5. Essential hypertension - ICD9: 401.9, ICD10: I10 Continue care with primary care physician Darrell Holland MD [facility] Diagnosis Combined form of age-related cataract, right eye- Primary Combined form of age-related cataract, left eye Fuchs' corneal dystrophy of both eyes Punctate keratitis, bilateral Essential hypertension Unspecified essential hypertension [facility] Combined form of age-related cataract, left eye- Primary Combined form of age-related cataract, right eye Fuchs' corneal dystrophy of both eyes Punctate keratitis, bilateral Essential hypertension Unspecified essential hypertension Combined forms of age-related cataract of left eye Other and combined forms of senile cataract [facility] Diagnosis Combined forms of age-related cataract of right eye- Primary Other and combined forms of senile cataract [facility]* Diagnosis Combined form of age-related cataract, right eye- Primary Status post cataract extraction and insertion of intraocular lens of left eye Fuchs' corneal dystrophy of both eyes Essential hypertension Unspecified essential hypertension Combined forms of age-related cataract of right eye Other and combined forms of senile cataract [facility] Diagnosis Combined form of age-related cataract, right eye [facility] Diagnosis Status post cataract extraction and insertion of intraocular lens of right eye- Primary Status post cataract extraction and insertion of intraocular lens of left eye [facility] Diagnosis Fuchs' corneal dystrophy of both eyes- Primary Nevus of choroid of right eye Pseudophakia of both eyes Lens replaced by other means Essential hypertension Unspecified essential hypertension Hypercholesteremia Pure hypercholesterolemia [facility] Diagnosis Adenocarcinoma of gallbladder (HCC)- Primary Malignant neoplasm of gallbladder [facility] Diagnosis Adenocarcinoma of gallbladder (HCC)- Primary Malignant neoplasm of gallbladder [facility]* Diagnosis Gallbladder cancer (HCC)- Primary Malignant neoplasm of gallbladder [facility] Diagnosis Gallbladder cancer (HCC)- Primary Malignant neoplasm of gallbladder Anemia, unspecified type 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 [facility] Diagnosis Adenocarcinoma of gallbladder (HCC)- Primary Malignant neoplasm of gallbladder [facility] Diagnosis Gallbladder cancer (HCC)- Primary Malignant neoplasm of gallbladder [facility]* Diagnosis Gallbladder cancer (HCC)- Primary Malignant neoplasm of gallbladder [facility] Diagnosis Gallbladder cancer (HCC)- Primary Malignant neoplasm of gallbladder [facility] Diagnosis Gallbladder cancer (HCC)- Primary Malignant neoplasm of gallbladder [facility]* Diagnosis Gallbladder cancer (HCC)- Primary Malignant neoplasm of gallbladder [facility]* Diagnosis Gallbladder cancer (HCC) Malignant neoplasm of gallbladder [facility]* Diagnosis Gallbladder cancer (HCC)- Primary Malignant neoplasm of gallbladder Pelvic cyst in female Abnormal CT scan, pelvis Nonspecific (abnormal) findings on radiological and other examination of abdominal area, including retroperitoneum [facility]* Diagnosis Gallbladder cancer (HCC) Malignant neoplasm of gallbladder Pelvic cyst in female Abnormal CT scan, pelvis Nonspecific (abnormal) findings on radiological and other examination of abdominal area, including retroperitoneum [facility]* Diagnosis Gallbladder cancer (HCC) Malignant neoplasm of gallbladder [facility]* Diagnosis Gallbladder cancer (HCC)- Primary Malignant neoplasm of gallbladder [facility]* Diagnosis Gallbladder cancer (HCC)- Primary Malignant neoplasm of gallbladder [facility]* Diagnosis Gallbladder cancer (HCC)- Primary Malignant neoplasm of gallbladder [facility]* Diagnosis 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)- Primary [facility]* Diagnosis 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) documented [facility]* Diagnosis Gallbladder cancer (HCC)- Primary Malignant neoplasm of gallbladder [facility] noteNo assessment information availableWLima Memorial Hospital Work Phone: Evaluation note* Diagnosis Gallbladder cancer (HCC) Malignant neoplasm of gallbladder [facility]* Diagnosis 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 documented [facility]* Diagnosis Ovarian cyst, left- Primary Other and unspecified ovarian cyst [facility]* Diagnosis 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 documented [facility]* Diagnosis 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 documented in this encounter [facility] note* Diagnosis Choledocholithiasis- Primary Calculus of bile duct without mention of cholecystitis or obstruction documented in this encounter [facility] note* Diagnosis Essential hypertension- Primary Unspecified essential hypertension History of TIA (transient ischemic attack) Transient ischemic attack (TIA), and cerebral infarction without residual deficits Pre-op testing Preoperative examination, unspecified Choledocholithiasis Calculus of bile duct without mention of cholecystitis or obstruction Gallbladder cancer (HCC)- Primary Malignant neoplasm of gallbladder documented in this encounter [facility] note* Diagnosis Essential hypertension- Primary Unspecified essential hypertension History of TIA (transient ischemic attack) Transient ischemic attack (TIA), and cerebral infarction without residual deficits Pre-op testing Preoperative examination, unspecified Choledocholithiasis Calculus of bile duct without mention of cholecystitis or obstruction Choledocholithiasis Calculus of bile duct without mention of cholecystitis or obstruction documented in this encounter [facility] for referral (narrative)* Diagnostic Procedure Only (Routine) - Authorized Specialty Diagnoses / Procedures Referred By Contac t Referred To Contact [facility] Diagnoses Gallbladder cancer (HCC) Pelvic cyst in female Abnormal CT scan, pelvis Procedures US FEMALE PELVIS TRANSVAG US TRANSVAGINAL Denice Orozco APRN.INSURANCE PROCESSING CLERK [address] [place] [address] [place] [address] Referral ID Status Reason Start Date Expiration Date Visits Requested Visits Authorized [id number] Authorized Auto-Generat ed Referral 2024 05/23/2025 1 1 * Diagnostic Procedure Only (Routine) - Authorized Specialty Diagnoses / Procedures Referred By Contac t Referred To Contact [facility] Diagnoses Gallbladder cancer (HCC) Pelvic cyst in female Abnormal CT scan, pelvis Procedures US FEMALE PELVIS TRANSABD LTD US PELVIC NONOBSTETRIC IMAGE DCMTN LIMITED/F/U Denice Orozco APRN.INSURANCE PROCESSING CLERK [address] [place] [address] [place] [address] Referral ID Status Reason Start Date Expiration Date Visits Requested Visits Authorized [id number] Authorized Auto-Generat ed Referral 2024 05/23/2025 1 1 [facility] for referral (narrative)No reason for referral information availableWLima Memorial Hospital Work Phone: Reason for visit Narrative* MRI/CT (Routine) - Closed Specialty Diagnoses / Procedures Referred By Contac t Referred To Contact [facility]AG[facility] Diagnoses 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) Procedures MRI FEMALE PELVIS WO/W IVCON MRI PELVIS W/O & W/CONTRAST MATERIAL Taty Velazquez APRN.INSURANCE PROCESSING CLERK [address] [place] [address] Phone: tel: fax: [place] [address] Referral ID Status Reason Start Date Expiration Date V isits Requested Visits Authorized [id number] Closed Auto-Generate d Referral 06/08/2024 07/08/2025 1 1 [facility] for visit Narrative* MRI/CT (Routine) - Closed Specialty Diagnoses / Procedures Referred By Contac t Referred To Contact CT IMAGING Diagnoses Gallbladder cancer (HCC) Procedures CT CHEST W IVCON DIAGNOSTIC COMPUTED TOMOGRAPHY THORAX W/CONTRAST Denice Orozco APRN.INSURANCE PROCESSING CLERK [address] [place] [address] Phone: tel: fax: [place] [address] Referral ID Status Reason Start Date Expiration Date V isits Requested Visits Authorized [id number] Closed Auto-Generate d Referral 07/05/2024 07/22/2025 1 1 [facility] for visit Narrative* MRI/CT (Routine) - Closed Specialty Diagnoses / Procedures Referred By Contac t Referred To Contact CT IMAGING Diagnoses Cholangiocarcinoma (HCC) Procedures CT ABD/PEL W IVCON CT ABD & PELVIS W/CONTRAST Tin Jose DO [address] [place] [address] Phone: tel: fax: [place] [address] Referral ID Status Reason Start Date Expiration Date V isits Requested Visits Authorized [id number] Closed Auto-Generate d Referral 07/14/2024 08/13/2025 1 1 [facility] N[facility]* Outpatient Procedure (Routine) - Closed Specialty Diagnoses / Procedures Referred By Rena t Referred To Contact [facility] Diagnoses Choledocholithiasis Procedures ERCP ERCP BILIARY/PANC DUCT STENT EXCHANGE W/DIL&WIRE Stacy Santamaria MD [address] [place] [address] Phone: tel: fax: [facility] [address] [place] [address] Referral ID Status Reason Start Date Expiration Date V isits Requested Visits Authorized [id number] Closed Auto-Generate d Referral 10/26/2024 10/26/2025 1 1 [facility] Summary Purpose Family History No Family History Records Found Relationship Condition Age at Onset Recorded Date/T ilsa mother Cerebrovascular accident (CVA) Unknown Hypertension Unknown father Coronary artery disease Unknown Cardiac disease Unknown Myocardial infarction Unknown Advance Directives No Advanced Directives Records Found Date Activated Date Inactivated Comments 11/20/2023 12:43 PM 12/06/2023 2:06 PM Question Answer Comments Full Code Order Discussed With: Patient Date Activated Date Inactivated Comments 11/20/2023 12:09 PM 11/20/2023 12:43 PM Question Answer Comments Full Code Order Discussed With: Patient Documents on File Type Date 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 Advance Directive(s) 09/07/2021 8:41 AM Date Activated Date Inactivated Comments 11/20/2023 12:43 PM Date Activated Date Inactivated Comments 11/20/2023 12:43 PM 12/06/2023 2:06 PM Question Answer Comments Full Code Order Discussed With: Patient Date Activated Date Inactivated Comments 11/20/2023 12:09 PM 11/20/2023 12:43 PM Question Answer Comments Full Code Order Discussed With: Patient Medications Administered Section Active Administered Medications - up to 3 most recent administrations Medication Order MAR Action Action Date Dose Rate Site fluorescein-benoxinate 0.25-0.4 % 1 Drop (FLURESS) 1 Drop, BOTH EYES, DIRECTED, Starting on Fri08/07/21 at 0900, Until Fri08/07/21 at 2058, Administer for applanation tonometry. In the event of a Fluress shortage, administer Gela-Fluor 1 drop into both eyes as directed for applanation tonometry Given 08/07/2021 9:00 AM EDT 1 Drop PHENYLephrine 2.5 % 1 Drop (AK-DILATE, INGRIS-SYNEPHRINE) 1 Drop, BOTH EYES, DIRECTED, Starting on Fri08/07/21 at 0900, Until Fri08/07/21 at 2058, Administer for dilation PROTECT FROM LIGHT Given 08/07/2021 9:00 AM EDT 1 Drop tropicamide 1 % 1 Drop (MYDRIACYL) 1 Drop, BOTH EYES, DIRECTED, Starting on Fri08/07/21 at 0900, Until Fri08/07/21 at 2058, Administer for dilation Given 08/07/2021 9:00 AM EDT 1 Drop Active Administered Medications - up to 3 most recent administrations Medication Order MAR Action Action Date Dose Rate Site fluorescein-benoxinate 0.25-0.4 % 1 Drop (FLURESS) 1 Drop, BOTH EYES, DIRECTED, Starting on Fri08/31/21 at 1430, Until Fri09/01/21 at 0229, Administer for applanation tonometry. In the event of a Fluress shortage, administer Gela-Fluor 1 drop into both eyes as directed for applanation tonometry Given 08/31/2021 2:21 PM EDT 1 Drop Inactive Administered Medications - up to 3 most recent administrations Medication Order MAR Action Action Date Dose Rate Site lactated ringers iv infusion 30 mL/hr, INTRAVENOUS, CONTINUOUS, Starting on Fri09/07/21 at 0930, Until Fri09/07/21 at 1104, If blood glucose less than 100 mg/dL, contact anesthesia provider., Preprocedure Continued by Anesthesia 09/07/2021 9:56 AM EDT 30 mL/hr New Bag/Syringe/Bottle 09/07/2021 9:28 AM EDT 30 mL/hr 3 0 mL/hr lidocaine (PF) 40 mg/mL (4 %) 1 mL ophthalmic syringe 1 mL, RIGHT EYE, ONCE, 1 dose, On Fri09/07/21 at 0000 Given 09/07/2021 9:10 AM EDT 1 mL tropicamide 0.5% - cyclopentolate 0.5% - PHENYLephrine 2.5% ophthalmic syringe 1 Drop, RIGHT EYE, EVERY 5 MINUTES NEEDED, 3 doses, Starting on Fri09/07/21 at 0000, Until Fri09/07/21 at 0920, until patient is dilated, FOR TOPICAL OPHTHALMIC USE ONLY Given 09/07/2021 9:20 AM EDT 1 D rop Given 09/07/2021 9:15 AM EDT 1 Drop Given 09/07/2021 9:10 AM EDT 1 Drop Active Administered Medications - up to 3 most recent administrations Medication Order MAR Action Action Date Dose Rate Site PHENYLephrine 2.5 % 1 Drop (AK-DILATE, INGRIS-SYNEPHRINE) 1 Drop, BOTH EYES, DIRECTED, Starting on Fri04/09/22 at 1030, Until Fri04/09/22 at 2229, Administer for dilation PROTECT FROM LIGHT Given 04/09/2022 10:30 AM EST 1 Drop proparacaine 0.5 % 1 Drop (ALCAINE) 1 Drop, BOTH EYES, DIRECTED, Starting on Fri04/09/22 at 1030, Until Fri04/09/22 at 2229, Administer for pneumo tonometry, tonopen tonometry, or pachymetry. In the event of a proparacaine shortage, administer tetracaine 0.5% ophthalmic drops 1 drop in the left eye as directed for pneumo tonometry, tonopen tonometry, or pachymetry Given 04/09/2022 10:30 AM EST 1 Drop tropicamide 1 % 1 Drop (MYDRIACYL) 1 Drop, BOTH EYES, DIRECTED, Starting on Fri04/09/22 at 1030, Until Fri04/09/22 at 2229, Administer for dilation Given 04/09/2022 10:30 AM EST 1 Drop Reason for Referral Specialty Diagnoses / Procedures Referred By Rena valenzuela Referred To Contact CT IMAGING Diagnoses Gallbladder cancer (HCC) Procedures CT CHEST W IVCON DIAGNOSTIC COMPUTED TOMOGRAPHY THORAX W/CONTRAST Denice Orozco, DAVEY.INSURANCE PROCESSING CLERK [address] [place] [address] [place] [address] Referral ID Status Reason Start Date Expiration Date Visits Requested Visits Authorized [id number] Authorized Auto-Generat ed Referral 04/02/2024 05/02/2025 1 1 Specialty Diagnoses / Procedures Referred By Contac t Referred To Contact CT IMAGING Diagnoses Gallbladder cancer (HCC) Procedures CT ABD/PEL W IVCON CT ABD & PELVIS W/CONTRAST Denice Orozco APRN.INSURANCE PROCESSING CLERK [address] [place] [address] [place] [address] Referral ID Status Reason Start Date Expiration Date Visits Requested Visits Authorized [id number] Authorized Auto-Generat ed Referral 04/19/2024 05/02/2025 1 1 Chief Complaint and Reason for Visit Chief Complaint Admit Date POST MENOPAUSAL June 02, 2024 8:29 am Additional Source Comments INFORMATION SOURCE (unrecogn ized section and content) DATE CREATED AUTHOR 08/15/2018 [facility] DATE CREATED AUTHOR AUTHOR'S ORGANIZ ATION 11/25/2018 [facility] DATE CREATED AUTHOR AUTHOR'S ORGANIZ ATION 12/27/2020 [facility] DATE CREATED AUTHOR AUTHOR'S ORGANIZ ATION 12/28/2020 [facility] DATE CREATED AUTHOR AUTHOR'S ORGANIZ ATION 03/30/2022 [facility] DATE CREATED AUTHOR AUTHOR'S ORGANIZ ATION 06/21/2022 [facility] DATE CREATED AUTHOR AUTHOR'S ORGANIZ ATION 11/22/[address] [facility] DATE CREATED AUTHOR AUTHOR'S ORGANIZ ATION 11/02/2024 [facility] DATE CREATED AUTHOR AUTHOR'S ORGANIZ ATION 11/09/2024 [facility] DATE CREATED AUTHOR AUTHOR'S ORGANIZ ATION 11/10/2024 [facility] Source Comments (unrecognize d section and content) In the event this informatio n is protected by the Federal Confidentiality of Alcohol and Drug Abuse Patient Records regulations: The Federal rules restrict any use of the information to criminally investigate or prosecute any alcohol or drug abuse patient.[facility] the event this information is protected by the Federal Confidentiality of Alcohol and Drug Abuse Patient Records regulations: The Federal rules restrict any use of the information to criminally investigate or prosecute any alcohol or drug abuse patient.[facility] the event this information is protected by the Federal Confidentiality of Alcohol and Drug Abuse Patient Records regulations: The Federal rules restrict any use of the information to criminally investigate or prosecute any alcohol or drug abuse patient.[facility] the event this information is protected by the Federal Confidentiality of Alcohol and Drug Abuse Patient Records regulations: The Federal rules restrict any use of the information to criminally investigate or prosecute any alcohol or drug abuse patient.[facility] the event this information is protected by the Federal Confidentiality of Alcohol and Drug Abuse Patient Records regulations: The Federal rules restrict any use of the information to criminally investigate or prosecute any alcohol or drug abuse patient.[facility] the event this information is protected by the Federal Confidentiality of Alcohol and Drug Abuse Patient Records regulations: The Federal rules restrict any use of the information to criminally investigate or prosecute any alcohol or drug abuse patient.[facility]ron[facility] the event this information is protected by the Federal Confidentiality of Alcohol and Drug Abuse Patient Records regulations: The Federal rules restrict any use of the information to criminally investigate or prosecute any alcohol or drug abuse patient.[facility]ron[facility] the event this information is protected by the Federal Confidentiality of Alcohol and Drug Abuse Patient Records regulations: The Federal rules restrict any use of the information to criminally investigate or prosecute any alcohol or drug abuse patient.[facility] the event this information is protected by the Federal Confidentiality of Alcohol and Drug Abuse Patient Records regulations: The Federal rules restrict any use of the information to criminally investigate or prosecute any alcohol or drug abuse patient.[facility] the event this information is protected by the Federal Confidentiality of Alcohol and Drug Abuse Patient Records regulations: The Federal rules restrict any use of the information to criminally investigate or prosecute any alcohol or drug abuse patient.[facility] the event this information is protected by the Federal Confidentiality of Alcohol and Drug Abuse Patient Records regulations: The Federal rules restrict any use of the information to criminally investigate or prosecute any alcohol or drug abuse patient.[facility] the event this information is protected by the Federal Confidentiality of Alcohol and Drug Abuse Patient Records regulations: The Federal rules restrict any use of the information to criminally investigate or prosecute any alcohol or drug abuse patient.[facility] the event this information is protected by the Federal Confidentiality of Alcohol and Drug Abuse Patient Records regulations: The Federal rules restrict any use of the information to criminally investigate or prosecute any alcohol or drug abuse patient.[facility] the event this information is protected by the Federal Confidentiality of Alcohol and Drug Abuse Patient Records regulations: The Federal rules restrict any use of the information to criminally investigate or prosecute any alcohol or drug abuse patient.[facility] the event this information is protected by the Federal Confidentiality of Alcohol and Drug Abuse Patient Records regulations: The Federal rules restrict any use of the information to criminally investigate or prosecute any alcohol or drug abuse patient.[facility] the event this information is protected by the Federal Confidentiality of Alcohol and Drug Abuse Patient Records regulations: The Federal rules restrict any use of the information to criminally investigate or prosecute any alcohol or drug abuse patient.[facility] the event this information is protected by the Federal Confidentiality of Alcohol and Drug Abuse Patient Records regulations: The Federal rules restrict any use of the information to criminally investigate or prosecute any alcohol or drug abuse patient.[facility]ronIn the event this information is protected by the Federal Confidentiality of Alcohol and Drug Abuse Patient Records regulations: The Federal rules restrict any use of the information to criminally investigate or prosecute any alcohol or drug abuse patient.[facility]ronIn the event this information is protected by the Federal Confidentiality of Alcohol and Drug Abuse Patient Records regulations: The Federal rules restrict any use of the information to criminally investigate or prosecute any alcohol or drug abuse patient.[facility]ronIn the event this information is protected by the Federal Confidentiality of Alcohol and Drug Abuse Patient Records regulations: The Federal rules restrict any use of the information to criminally investigate or prosecute any alcohol or drug abuse patient.[facility]ronIn the event this information is protected by the Federal Confidentiality of Alcohol and Drug Abuse Patient Records regulations: The Federal rules restrict any use of the information to criminally investigate or prosecute any alcohol or drug abuse patient.[facility]ronIn the event this information is protected by the Federal Confidentiality of Alcohol and Drug Abuse Patient Records regulations: The Federal rules restrict any use of the information to criminally investigate or prosecute any alcohol or drug abuse patient.[facility]ronIn the event this information is protected by the Federal Confidentiality of Alcohol and Drug Abuse Patient Records regulations: The Federal rules restrict any use of the information to criminally investigate or prosecute any alcohol or drug abuse patient.[facility]ronIn the event this information is protected by the Federal Confidentiality of Alcohol and Drug Abuse Patient Records regulations: The Federal rules restrict any use of the information to criminally investigate or prosecute any alcohol or drug abuse patient.[facility]ronIn the event this information is protected by the Federal Confidentiality of Alcohol and Drug Abuse Patient Records regulations: The Federal rules restrict any use of the information to criminally investigate or prosecute any alcohol or drug abuse patient.[facility]ronIn the event this information is protected by the Federal Confidentiality of Alcohol and Drug Abuse Patient Records regulations: The Federal rules restrict any use of the information to criminally investigate or prosecute any alcohol or drug abuse patient.[facility]ronIn the event this information is protected by the Federal Confidentiality of Alcohol and Drug Abuse Patient Records regulations: The Federal rules restrict any use of the information to criminally investigate or prosecute any alcohol or drug abuse patient.[facility]ronIn the event this information is protected by the Federal Confidentiality of Alcohol and Drug Abuse Patient Records regulations: The Federal rules restrict any use of the information to criminally investigate or prosecute any alcohol or drug abuse patient.[facility]ronIn the event this information is protected by the Federal Confidentiality of Alcohol and Drug Abuse Patient Records regulations: The Federal rules restrict any use of the information to criminally investigate or prosecute any alcohol or drug abuse patient.[facility]ronIn the event this information is protected by the Federal Confidentiality of Alcohol and Drug Abuse Patient Records regulations: The Federal rules restrict any use of the information to criminally investigate or prosecute any alcohol or drug abuse patient.[facility]ronIn the event this information is protected by the Federal Confidentiality of Alcohol and Drug Abuse Patient Records regulations: The Federal rules restrict any use of the information to criminally investigate or prosecute any alcohol or drug abuse patient.[facility]ronIn the event this information is protected by the Federal Confidentiality of Alcohol and Drug Abuse Patient Records regulations: The Federal rules restrict any use of the information to criminally investigate or prosecute any alcohol or drug abuse patient.[facility]ronIn the event this information is protected by the Federal Confidentiality of Alcohol and Drug Abuse Patient Records regulations: The Federal rules restrict any use of the information to criminally investigate or prosecute any alcohol or drug abuse patient.[facility]ronIn the event this information is protected by the Federal Confidentiality of Alcohol and Drug Abuse Patient Records regulations: The Federal rules restrict any use of the information to criminally investigate or prosecute any alcohol or drug abuse patient.[facility]ronIn the event this information is protected by the Federal Confidentiality of Alcohol and Drug Abuse Patient Records regulations: The Federal rules restrict any use of the information to criminally investigate or prosecute any alcohol or drug abuse patient.[facility]ronIn the event this information is protected by the Federal Confidentiality of Alcohol and Drug Abuse Patient Records regulations: The Federal rules restrict any use of the information to criminally investigate or prosecute any alcohol or drug abuse patient.[facility]ronIn the event this information is protected by the Federal Confidentiality of Alcohol and Drug Abuse Patient Records regulations: The Federal rules restrict any use of the information to criminally investigate or prosecute any alcohol or drug abuse patient.[facility]ronIn the event this information is protected by the Federal Confidentiality of Alcohol and Drug Abuse Patient Records regulations: The Federal rules restrict any use of the information to criminally investigate or prosecute any alcohol or drug abuse patient.[facility]ronIn the event this information is protected by the Federal Confidentiality of Alcohol and Drug Abuse Patient Records regulations: The Federal rules restrict any use of the information to criminally investigate or prosecute any alcohol or drug abuse patient.[facility]ronIn the event this information is protected by the Federal Confidentiality of Alcohol and Drug Abuse Patient Records regulations: The Federal rules restrict any use of the information to criminally investigate or prosecute any alcohol or drug abuse patient.[facility]ronIn the event this information is protected by the Federal Confidentiality of Alcohol and Drug Abuse Patient Records regulations: The Federal rules restrict any use of the information to criminally investigate or prosecute any alcohol or drug abuse patient.[facility]ronIn the event this information is protected by the Federal Confidentiality of Alcohol and Drug Abuse Patient Records regulations: The Federal rules restrict any use of the information to criminally investigate or prosecute any alcohol or drug abuse patient.[facility]ronIn the event this information is protected by the Federal Confidentiality of Alcohol and Drug Abuse Patient Records regulations: The Federal rules restrict any use of the information to criminally investigate or prosecute any alcohol or drug abuse patient.[facility]ronIn the event this information is protected by the Federal Confidentiality of Alcohol and Drug Abuse Patient Records regulations: The Federal rules restrict any use of the information to criminally investigate or prosecute any alcohol or drug abuse patient.[facility]ronIn the event this information is protected by the Federal Confidentiality of Alcohol and Drug Abuse Patient Records regulations: The Federal rules restrict any use of the information to criminally investigate or prosecute any alcohol or drug abuse patient.[facility]ronIn the event this information is protected by the Federal Confidentiality of Alcohol and Drug Abuse Patient Records regulations: The Federal rules restrict any use of the information to criminally investigate or prosecute any alcohol or drug abuse patient.[facility]ronIn the event this information is protected by the Federal Confidentiality of Alcohol and Drug Abuse Patient Records regulations: The Federal rules restrict any use of the information to criminally investigate or prosecute any alcohol or drug abuse patient.[facility]ronIn the event this information is protected by the Federal Confidentiality of Alcohol and Drug Abuse Patient Records regulations: The Federal rules restrict any use of the information to criminally investigate or prosecute any alcohol or drug abuse patient.[facility]ronIn the event this information is protected by the Federal Confidentiality of Alcohol and Drug Abuse Patient Records regulations: The Federal rules restrict any use of the information to criminally investigate or prosecute any alcohol or drug abuse patient.[facility]ronIn the event this information is protected by the Federal Confidentiality of Alcohol and Drug Abuse Patient Records regulations: The Federal rules restrict any use of the information to criminally investigate or prosecute any alcohol or drug abuse patient.[facility]ronIn the event this information is protected by the Federal Confidentiality of Alcohol and Drug Abuse Patient Records regulations: The Federal rules restrict any use of the information to criminally investigate or prosecute any alcohol or drug abuse patient.[facility]ronIn the event this information is protected by the Federal Confidentiality of Alcohol and Drug Abuse Patient Records regulations: The Federal rules restrict any use of the information to criminally investigate or prosecute any alcohol or drug abuse patient.[facility]ronIn the event this information is protected by the Federal Confidentiality of Alcohol and Drug Abuse Patient Records regulations: The Federal rules restrict any use of the information to criminally investigate or prosecute any alcohol or drug abuse patient.[facility]ronIn the event this information is protected by the Federal Confidentiality of Alcohol and Drug Abuse Patient Records regulations: The Federal rules restrict any use of the information to criminally investigate or prosecute any alcohol or drug abuse patient.[facility]ronIn the event this information is protected by the Federal Confidentiality of Alcohol and Drug Abuse Patient Records regulations: The Federal rules restrict any use of the information to criminally investigate or prosecute any alcohol or drug abuse patient.[facility] Reason for Visit (unrecogniz ed section and content) Reason Comments Blurred Vision Both Eyes left eye worse than right eye for 1 year Difficulty Reading Both Eyes left eye wo rse than right eye for 1 year Glare left eye worse than right eye for 1 year Reason Comments Blurred Vision Both Eyes Difficulty Reading Both Eyes Halos Both Eyes Glare Reason Comments Post-op Cataract OS Cataract Follow Up Right eye Reason Comments Post-op Cataract OD Status Post Cataract Surgery with Monofocal Intraocular Lens Implant Right Eye (09/07/2021) Post-op Cataract OS Status Post Cataract Surgery with Monofocal Intraocular Lens Implant Left Eye (08/30/2021) 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 Reason Comments Post Op Drain check Reason Onset Date Comments SPP Oral Oncology/hematology - Treatment Referra l 12/17/2023 Capecitabine Insurance Authorization 12/17/2023 No PA ne eded Reason Comments New Patient Evaluation Reason Comments Post Op Follow Up Drain removal Reason Comments Interior Design Program Chair - Other Oral Anti-Cance r Agents Education (Xeloda) Reason Comments Established Patient Reason Onset Date Comments SPP Oral Oncology/hematology - Medication Refill 01/26/2024 Capecitabine 500 mg Reason Onset Date Comments SPP Oral Oncology/hematology - Medication Refill 02/17/2024 capecitabine Reason Onset Date Comments SPP Oral Oncology/hematology - Medication Refill 03/08/2024 capecitabine Reason Onset Date Comments SPP Oral Oncology/hematology - Medication Refill 03/29/2024 Capecitabine 500mg Reason Comments Established Patient Reason Comments Radiology CT Specialty Diagnoses / Procedures Referred By Rena valenzuela Referred To Contact [facility] Diagnoses Gallbladder cancer (HCC) Procedures CT ABD/PEL W IVCON CT ABD & PELVIS W/CONTRAST Denice Orozco, SUPERVISOR [employer].INSURANCE PROCESSING CLERK [address] [place] [address] [place] [address] Referral ID Status Reason Start Date Expiration Date V isits Requested Visits Authorized [id number] Closed Auto-Generate d Referral 04/19/2024 05/02/2025 1 1 Specialty Diagnoses / Procedures Referred By Rena valenzuela Referred To Contact CT [facility] Diagnoses Gallbladder cancer (HCC) Procedures CT ABD/PEL W IVCON CT ABD & PELVIS W/CONTRAST Denice Orozco, SUPERVISOR [employer]NALS.INSURANCE PROCESSING CLERK [address] [place] [address] [place] [address] Reason Onset Date Comments SPP Oral Oncology/hematology - Medication Refill 04/20/2024 capecitabine Reason Onset Date Comments SPP Oral Oncology/hematology - Medication Refill 04/26/2024 capecitabine Reason Comments Radiology [facility] Specialty Diagnoses / [facility] Diagnoses Gallbladder cancer (HCC) Pelvic cyst in female Abnormal CT scan, pelvis Procedures US FEMALE PELVIS TRANSVAG US TRANSVAGINAL Denice Orozco, SUPERVISOR [employer].INSURANCE PROCESSING CLERK [address] [place] [address] [place] [address] Referral ID Status Reason Start Date Expiration Date V isits Requested Visits Authorized [id number] Closed Auto-Generate d Referral 2024 05/23/2025 1 1 Reason Comments Refill Request Reason Onset Date Comments SPP Oral Oncology/hematology - Medication Refill 05/13/2024 capecitabine Reason Onset Date Comments SPP Oral Oncology/hematology - Medication Refill 05/31/2024 capecitabine Reason Comments Problem Visit Reason Onset Date Comments SPP Oral Oncology/hematology - Medication Refill 06/21/2024 Capecitabine Specialty Diagnoses / Procedures [facility] Ref[facility] To Contact [facility] Diagnoses Gallbladder cancer (HCC) Procedures CT CHEST W IVCON DIAGNOSTIC COMPUTED TOMOGRAPHY THORAX W/CONTRAST Denice Orozco, SUPERVISOR [employer]LS.INSURANCE PROCESSING CLERK [address] [place] [address] Phone: tel: fax: [place] [address] Referral ID Status Reason Start Date Expiration Date V isits Requested Visits Authorized [id number] Closed Auto-Generate d Referral 07/05/2024 07/22/2025 1 1 Reason Onset Date Comments SPP Oral Oncology/hematology - Medication Refill 07/12/2024 capecitabine Reason Onset Date Comments Results 06/28/2024 Reason Comments Orders Specialty Diagnoses / Procedures [facility] Ref[facility] To Contact [facility] Diagnoses Cholangiocarcinoma (HCC) Procedures CT ABD/PEL W IVCON CT ABD & PELVIS W/CONTRAST Tin Jose, DO [address] [place] [address] Phone: tel: fax: [place] [address] Referral ID Status Reason Start Date Expiration Date V isits Requested Visits Authorized [id number] Closed Auto-Generate d Referral 07/14/2024 08/13/2025 1 1 Reason Comments Appointment Care Teams (unrecognized sec tion and content) Cinder Crusher Operator Relationship Specialty Start Date End Date Trever Billings [address] [place] [address] PCP - General Family Practice 08/01/21 Cinder Crusher Operator Relationship Specialty Start Date End Date Trever Billings [address] [place] [address] PCP - General Family Practice 08/01/21 Cinder Crusher Operator Relationship Specialty Start Date End Date Trever Billings [address] [place] [address] PCP - General Family Practice 08/01/21 Cinder Crusher Operator Relationship Specialty Start Date End Date Trever Billings [address] [place] [address] PCP - General Family Practice 08/01/21 Cinder Crusher Operator Relationship Specialty Start Date End Date Trever Billings [address] [place] [address] PCP - General Family Practice 08/01/21 Cinder Crusher Operator Relationship Specialty Start Date End Date Trever Billings [address] [place] [address] PCP - General Family Practice 08/01/21 Cinder Crusher Operator Relationship Specialty Start Date End Date Trever Billings [address] [place] [address] PCP - General Family Medicine 08/01/21 Cinder Crusher Operator Relationship Specialty Start Date End Date Joe Muller MD [address] [facility] [address] [place] [address] PCP - General Internal Medicine 11/19/23 Cinder Crusher Operator Relationship Specialty Start Date End Date Joe Muller MD [address] [facility] [address] [place], [place] [address] PCP - General Internal Medicine 11/19/23 Cinder Crusher Operator Relationship Specialty Start Date End Date Joe Muller MD [address] [facility] [address] [place], [place] [address] PCP - General Internal Medicine 11/19/23 Mikala Jones MD [address] [id number] General Surgery 12/16/23 Tin Jose DO [address] [place], [place] [address] Hematology/Oncology 12/17/23 Teresa Moore RN Specialty Interior Design Program Chair Oncology 12/17/23 Cinder Crusher Operator Relationship Specialty Start Date End Date Joe Muller MD [address] [facility] [address] [place] [address] PCP - General Internal Medicine 11/19/23 Mikala Jones MD [address] [id number] General Surgery 12/16/23 Tin Jose DO [address] [place], [place] [address] Hematology/Oncology 12/17/23 Doup, Teresa, RN Specialty Interior Design Program Chair Oncology 12/17/23 Cinder Crusher Operator Relationship Specialty Start Date End Date Joe Muller MD [address] [facility] [address] [place], [place] [address] PCP - General Internal Medicine 11/19/23 Mikala Jones MD [address] [id number] General Surgery 12/16/23 Cinder Crusher Operator Relationship Specialty Start Date End Date Joe Muller MD [address] [facility] [address] [place], [place] [id number] PCP - General Internal Medicine 11/19/23 Mikala Jones MD [address] [id number] General Surgery 12/16/23 Tin Jose DO [address] [place], [place] [id number] Hematology/Oncology 12/17/23 Teresa Moore RN Specialty Interior Design Program Chair Oncology 12/17/23 Cinder Crusher Operator Relationship Specialty Start Date End Date Joe Muller MD [address] [facility] [address] [place] [address] PCP - General Internal Medicine 11/19/23 Mikala Jones MD [address] [id number] General Surgery 12/16/23 Tin Jose DO [address] [place], [place] [id number] Hematology/Oncology 12/17/23 Teresa Moore RN Specialty Interior Design Program Chair Oncology 12/17/23 Cinder Crusher Operator Relationship Specialty Start Date End Date Joe Muller MD [address] [facility] [address] [place] [address] PCP - General Internal Medicine 11/19/23 Mikala Jones MD [address] [address] General Surgery 12/16/23 Tin Jose DO [address] [place] [place] [address] Hematology/Oncology 12/17/23 Teresa Moore RN Specialty Interior Design Program Chair Oncology 12/17/23 Cinder Crusher Operator Relationship Specialty Start Date End Date Joe Muller MD [address] [facility] [address] [place] [address] PCP - General Internal Medicine 11/19/23 Mikala Jones MD [address] [address] General Surgery 12/16/23 Tin Jose DO [address] [place] [address] Hematology/Oncology 12/17/23 Teresa Moore RN Specialty Interior Design Program Chair Oncology 12/17/23 Cinder Crusher Operator Relationship Specialty Start Date End Date Joe Muller MD [address] [facility] [address] [place], [place] [address] PCP - General Internal Medicine 11/19/23 Mikala Jones MD [address] [address] General Surgery 12/16/23 Tin Jose DO [address] [place] [address] Hematology/Oncology 12/17/23 Teresa Moore RN Specialty Interior Design Program Chair Oncology 12/17/23 Cinder Crusher Operator Relationship Specialty Start Date End Date Joe Muller MD [address] [facility] [address] [place], [place] [address] PCP - General Internal Medicine 11/19/23 Mikala Jones MD [address] [address] General Surgery 12/16/23 Tin Jose DO [address] [place], [place] [address] Hematology/Oncology 12/17/23 Teresa Moore RN Specialty Interior Design Program Chair Oncology 12/17/23 Cinder Crusher Operator Relationship Specialty Start Date End Date Joe Muller MD [address] [facility] [address] [place], [place] [address] PCP - General Internal Medicine 11/19/23 Mikala Jones MD [address] [address] General Surgery 12/16/23 Tin Jose DO [address] [place] [phone] Hematology/Oncology 12/17/23 Teresa Moore RN Specialty Interior Design Program Chair Oncology 12/17/23 Cinder Crusher Operator Relationship Specialty Start Date End Date Joe Muller MD [address] [facility] [address] [place], [place] [address] PCP - General Internal Medicine 11/19/23 Mikala Jones MD [address] [id number] General Surgery 12/16/23 Tin Jose DO [address] [place], [place] [address] Hematology/Oncology 12/17/23 Teresa Moore RN Specialty Interior Design Program Chair Oncology 12/17/23 Cinder Crusher Operator Relationship Specialty Start Date End Date Joe Muller MD [address] [facility] [address] [place] [address] PCP - General Internal Medicine 11/19/23 Mikala Jones MD [address] [phone] General Surgery 12/16/23 Tin Jose DO [address] [place], [place] [address] Hematology/Oncology 12/17/23 Teresa Moore RN Specialty Interior Design Program Chair Oncology 12/17/23 Cinder Crusher Operator Relationship Specialty Start Date End Date Joe Muller MD [address] [facility] [address] [place], [place] [phone] PCP - General Internal Medicine 11/19/23 Mikala Jones MD [address] [phone] General Surgery 12/16/23 Tin Jose DO [address] [place] [address] Hematology/Oncology 12/17/23 Teresa Moore RN Specialty Interior Design Program Chair Oncology 12/17/23 Cinder Crusher Operator Relationship Specialty Start Date End Date Joe Muller MD [address] [facility] [address] [place] [address] PCP - General Internal Medicine 11/19/23 Mikala Jones MD [address] [phone] General Surgery 12/16/23 Tin Jose DO [address] [place] [address] Hematology/Oncology 12/17/23 Teresa Moore RN Specialty Interior Design Program Chair Oncology 12/17/23 Cinder Crusher Operator Relationship Specialty Start Date End Date Joe Muller MD [address] [facility] [address] [place], [place] [address] PCP - General Internal Medicine 11/19/23 Mikala Jones MD [address] [id number] General Surgery 12/16/23 Tin Jose DO [address] [place], [place] [id number] Hematology/Oncology 12/17/23 Teresa Moore RN Specialty Interior Design Program Chair Oncology 12/17/23 Cinder Crusher Operator Relationship Specialty Start Date End Date Joe Muller MD [address] [facility] [address] [place] [address] PCP - General Internal Medicine 11/19/23 Mikala Jones MD [address] [id number] General Surgery 12/16/23 Tin Jose DO [address] [place] [address] Hematology/Oncology 12/17/23 Teresa Moore RN Specialty Interior Design Program Chair Oncology 12/17/23 Cinder Crusher Operator Relationship Specialty Start Date End Date Joe Muller MD [address] [facility] [address] [place] [address] PCP - General Internal Medicine 11/19/23 Mikala Jones MD [address] [id number] General Surgery 12/16/23 Tin Jose DO [address] [place], [place] [id number] Hematology/Oncology 12/17/23 Teresa Moore RN Specialty Interior Design Program Chair Oncology 12/17/23 Cinder Crusher Operator Relationship Specialty Start Date End Date Joe Muller MD [address] [facility] [address] [place], [place] [id number] PCP - General Internal Medicine 11/19/23 Mikala Jones MD [address] [id number] General Surgery 12/16/23 Tin Jose DO [address] [place] [address] Hematology/Oncology 12/17/23 Teresa Moore RN Specialty Interior Design Program Chair Oncology 12/17/23 Cinder Crusher Operator Relationship Specialty Start Date End Date Joe Muller MD [address] [facility] [address] [place], [place] [address] PCP - General Internal Medicine 11/19/23 Mikala Jones MD [address] [id number] General Surgery 12/16/23 Tin Jose DO [address] [place], [place] [phone] Hematology/Oncology 12/17/23 Teresa Moore RN Specialty Interior Design Program Chair Oncology 12/17/23 Team Status: Active Member Role Status Dates Joe Muller MD Primary Care Provider Active Team Status: Inactive Member Role Status Dates Joe Muller MD Primary Care Provider Active St art: June 02, 2024 End: June 02, 2024 Joe Muller MD Attending Provider Active Start : June 02, 2024 End: June 02, 2024 Joe Muller MD Referring Provider Active Start : June 02, 2024 End: June 02, 2024 Cinder Crusher Operator Relationship Specialty Start Date End Date Joe Muller MD [address] [facility] [address] [place], [place] [id number] PCP - General Internal Medicine 11/19/23 Mikala Jones MD [address] [id number] General Surgery 12/16/23 Tin Jose DO [address] [place] [address] Hematology/Oncology 12/17/23 Teresa Moore RN Specialty Interior Design Program Chair Oncology 12/17/23 Cinder Crusher Operator Relationship Specialty Start Date End Date Joe Muller MD [address] [facility] [address] [place], [place] [address] PCP - General Internal Medicine 11/19/23 Mikala Jones MD [address] [phone] General Surgery 12/16/23 iTn Jose DO [address] [place] [address] Hematology/Oncology 12/17/23 Teresa Moore RN Specialty Interior Design Program Chair Oncology 12/17/23 Cinder Crusher Operator Relationship Specialty Start Date End Date Joe Muller MD [address] [facility] [address] [place] [address] PCP - General Internal Medicine 11/19/23 Mikala Jones MD [address] [address] General Surgery 12/16/23 Tin oJse DO [address] [place] [address] Hematology/Oncology 12/17/23 Teresa Moore RN Specialty Interior Design Program Chair Oncology 12/17/23 Cinder Crusher Operator Relationship Specialty Start Date End Date Jeo Muller MD [address] [facility] [address] [place], [place] [address] PCP - General Internal Medicine 11/19/23 Mikala Jones MD [address] [phone] General Surgery 12/16/23 Tin Jose DO [address] [place], [place] [address] Hematology/Oncology 12/17/23 Tereas Moore RN Specialty Interior Design Program Chair Oncology 12/17/23 Team Status: Active Member Role/Relationship Status Dates Joe Muller MD Primary Care Provider Active Team Status: Inactive Member Role/Relationship Status Dates Joe Muller MD Primary Care Provider Active St art: November 01, 2024 End: November 01, 2024 Joe Muller MD Attending Provider Active Start : November 01, 2024 End: November 01, 2024 Cinder Crusher Operator Relationship Specialty Start Date End Date Joe Muller MD [address] [phone] PCP - General Internal Medicine 11/19/23 Mikala Jones MD [address] [id number] General Surgery 12/16/23 Tin Jose DO [address] [place], [place] [address] Hematology/Oncology 12/17/23 Teresa Moore RN Specialty Interior Design Program Chair Oncology 12/17/23 Scheduled Active and Recently Administ ered Medications (unrecognized section and content) Medication Order 09/05/2021 09/06/2021 09/07/2021 lidocaine (PF) 40 mg/mL (4 %) 1 mL ophthalmic syringe (COMPLETED) 1 mL, RIGHT EYE, ONCE, 1 dose, On Fri09/07/21 at 0000 0910 (Given - Provid er: Mikala Huitron RN) Continuous Medication Order 09/05/2021 09/06/2021 09/07/2021 lactated ringers iv infusion (CANCELED) 30 mL/hr, INTRAVENOUS, CONTINUOUS, Starting on Fri09/07/21 at 0930, Until Fri09/07/21 at 1104, If blood glucose less than 100 mg/dL, contact anesthesia provider., Preprocedure 0928 (New Bag/Syring e/Bottle - Provider: Mikala Huitron RN)0956 (Continued by Anesthesia - Provider: Trever Solis APRN.CRNA)1016 (Anesthesia Volume Adjustment - Provider: Trever Solis APRN.CRNA)1104 (Due: Infusion Complete) PRN Medication Order 09/05/2021 09/06/2021 09/07/2021 balanced salt ophthalmic solution (BSS) (CANCELED) X (OR/PROCEDURE) PRN, Starting on Fri09/07/21 at 1007, Until Fri09/07/21 at 1019, Intraprocedure 1007 (Given - Provid er: Perry Calvert RN) balanced salts (BSS) (CANCELED) X (OR/PROCEDURE) PRN, Starting on Fri09/07/21 at 1017, Until Fri09/07/21 at 1019, Intraprocedure 1017 (Given - Provid er: Darrell Holland MD) chondroitin-sodium hyaluronate 4-3 % (40-30 mg/mL) intraocular injection (VISCOAT) (CANCELED) X (OR/PROCEDURE) PRN, Starting on Fri09/07/21 at 1009, Until Fri09/07/21 at 1019, Intraprocedure 1009 (Given - Provid er: Darrell Holland MD) lidocaine (PF) 10 mg/mL (1 %) injection (XYLOCAINE) (CANCELED) X (OR/PROCEDURE) PRN, Starting on Fri09/07/21 at 1003, Until Fri09/07/21 at 1019, Intraprocedure 1003 (Given - Provid er: Darrell Holland MD - Comment: right eye topical)1004 (Given - Provider: Darrell Holland MD - Comment: right eye ic) moxifloxacin 0.5 mg/0.1 mL intraocular injection (VIGAMOX) (CANCELED) X (OR/PROCEDURE) PRN, Starting on Fri09/07/21 at 1015, Until Fri09/07/21 at 1019, Intraprocedure 1015 (Given - Provid er: Darrell Holland MD) PHENYLephrine syringe 1.5% (15 mg/mL) (INGRIS-SYNEPHRINE) (CANCELED) X (OR/PROCEDURE) PRN, Starting on Fri09/07/21 at 1003, Until Fri09/07/21 at 1019, Intraprocedure 1003 (Given - Provid er: Darrell Holland MD - Comment: topical)1004 (Given - Provider: Darrell Holland MD - Comment: ic) Povidone-Iodine 5 % ophth soln (BETADINE) (CANCELED) X (OR/PROCEDURE) PRN, Starting on Fri09/07/21 at 1000, Until Fri09/07/21 at 1019, Intraprocedure 1000 (Given - Provid er: Brenda Amaro RN) sodium hyaluronate 10 mg/mL injection (PROVISC,HEALON PRO) (CANCELED) X (OR/PROCEDURE) PRN, Starting on Fri09/07/21 at 1009, Until Fri09/07/21 at 1019, Intraprocedure 1009 (Given - Provid er: Darrell Holland MD) tropicamide 0.5% - cyclopentolate 0.5% - PHENYLephrine 2.5% ophthalmic syringe (COMPLETED) 1 Drop, RIGHT EYE, EVERY 5 MINUTES NEEDED, 3 doses, Starting on Fri09/07/21 at 0000, Until Fri09/07/21 at 0920, until patient is dilated, FOR TOPICAL OPHTHALMIC USE ONLY 0910 (Given - Provid er: Mikala Huitron RN)0915 (Given - Provider: Mikala Huitron RN)0920 (Given - Provider: Mikala Huitron RN) Goals (unrecognized section and content) Goals may be documented in a n alternate sectionGoals may be documented in an alternate section FOR RECORDS PERTAINING TO PATIENTS WHO ARE OR HAVE BEEN ENROLLED IN A CHEMICAL DEPENDENCY/SUBSTANCEABUSE PROGRAM, SOME INFORMATION MAY BE OMITTED. This clinical summary was aggregated from multiple sources. Caution should be exercised in using it in the provision of clinical care. This summary normalizes information from multiple sources, and as a consequence, information in this document may materially change the coding, format and clinical context of patient data. In addition, data may be omitted in some cases. CLINICAL DECISIONS SHOULD BE BASED ON THE PRIMARY CLINICAL RECORDS. [facility] [employer] [facility]. provides no warranty or guarantee of the accuracy or completeness of information in this document.
--- OUTSIDE RECORDS SUMMARY | 2024-11-11 04:07 | XMS RPT_ITS | CCD ---
Author Organization [facility] Care Team Providers Care Hot Repairman Name Role Phone TREVER BILLINGS Attending Unavailable TREVER BILLINGS Referring Unavailable TREVER BILLINGS Primary Care Unavailable Trever Billings Primary Care Provider TREVER BILLINGS Primary Care Unavailable LILY HERNANDEZ Attending Unavailable Trever Billings Primary Care Provider Amalia, Dr. Darrell Carl Referring Unavai lable Holland, Dr. Darrell Carl Attending Unavai lable Holland, Dr. Darrell Carl Admitting Unavai lable Awa, Dr. Trever Phelan Primary Care Unavaila ble BAWWAB, AMEED Admitting Unavailable BAWWAB, AMEED Attending Unavailable MAY DUKE Referring Unavailable TREVER BILLINGS Primary Care Unavailable JONATHON VALVERDE Consulting Unavailable Joe Tim MD Primary Care Provider Mikala Jones MD Unavailable Tin Jose DO Unavailable Donicole RN, Teresa Unavailable Unavailable Joe Tim MD Primary Care Provider Joe Tim MD Attending Provider Joe Tim MD Referring Provider [phone] RENZO, CHALON Primary Care Unavailable OROZCO, DENICE Referring Unavailable RENZO, CHALON Primary Care Unavailable OROZCO, DENICE Referring Unavailable RENZO, CHALON Primary Care Unavailable DENICE OROZCO Attending Unavailable RENZO, CHALON Primary Care Unavailable TIN JOSE A Attending Unavailable ROGER, DENICE Referring Unavailable RENZO, CHALON Primary Care Unavailable DENICE OROZCO Attending Unavailable RENZO, CHALON Primary Care Unavailable MASCEfra TIN A Referring Unavailable RENZO, CHALON Primary [...] Referring Unavailable RENZO, CHALON Primary Care Unavailable MASCITIN A Attending Unavailable RENZO, CHALON Primary Care Unavailable RENZO, CHALON Primary Care Unavailable OROZCO, DENICE Attending Unavailable RENZO, CHALON Primary Care Unavailable RENZO, CHALON Primary Care Unavailable OROZCO, DENICE Attending Unavailable RENZO, CHALON Primary Care Unavailable PIETER, TATY Attending Unavailable OROZCO, DENICE Referring Unavailable RENZO, CHALON Primary Care Unavailable PIETERTATY Referring Unavailable Renzo Joe LEWIS Primary Care Provider Joe Tim MD Attending Provider [phone] Renzo, Chalon Referring Unavailable Renzo, Chalon Primary Care Unavailable Farzad Madrigalera Attending Unavailable MeredithKj toure Attending Unavailable Renzo, Chalon Primary Care Unavailable Friend, Agus Referring Unavailable Renzo, Chalon Primary Care Unavailable FriendAgus Consulting Unavailable FriendAgus Attending Unavailable Renzo, Chalon Referring Unavailable Jose Duke Referring Unavailable Renzo, Chalon Primary Care Unavailable Marah Sebastian Attending Unavailable Renzo, Chalon Primary Care Unavailable FriendAgus Attending Unavailable Renzo, Chalon Referring Unavailable Renzo, Chalon Primary Care Unavailable FriendAgus Attending Unavailable Renzo, Chalon Referring Unavailable Renzo, Chalon Primary Care Unavailable Renzo, Chalon Attending Unavailable Jolliff, Beth S Attending Unavailable Garrett, Beth S Referring Unavailable Renzo, Chalon Primary Care Unavailable Jose Duke Attending Unavailable Renzo, Chalon Primary Care Unavailable Renzo, Chalon Primary Care Unavailable Renzo, Chalon Attending Unavailable Renzo, Chalon Referring Unavailable ISSAK, STACY ROSENTHAL Attending Unavaila ble ISSAK, THUYULFATAH GALO Referring Unavaila ble RENZO, CHALON Primary Care Unavailable MIKALA JONES Attending Unavailable RENZO, CHALON Primary Care Unavailable ISSAK, ABDULFATAH GALO Referring Unavaila ble RENZO, CHALON Primary Care Unavailable DELFINA BLACK Admitting Unavailable HIEB, ASHLEY (RES) Referring Unavailable RENZO, CHALON Primary Care Unavailable MIKALA JONES Attending Unavailable RUBIA BLAIR Consulting Unavailable RUBIA BLAIR Attending Unavailable AGA ASHER Referring Unavailable RENZO, CHALON Primary Care Unavailable TIN JOSE Referring Unavailable RENZO, CHALON Primary Care Unavailable MIKALA JONES Attending Unavailable RENZO, CHALON Primary Care Unavailable Laurie LEWIS, Dr. Gonzales Emergency Provider Unavailab Dr. Trever Kurtz DO Admit Provider Unavail able Dr. Trever Sanchez DO Attending Provider Unav ailable Medications Current Medications Medication Drug Class(es) Dates Sig (Normalized) Sig (Original) acetaminophen 325 mg oral tablet (20 sources) Start: 11-20-2023 take 2 tablets by mouth every six hours as needed acetaminophen (TYLENOL) 325 mg tablet Take 2 tablets by mouth every 6 hours as needed for pain. 20 tablet 1 11/20/2023 Active benoxinate hydrochloride 4 mg/ml / fluorescein sodium [...] / oxyCODONE hydrochloride 5 mg oral tablet (3 sources) Opioid Agonist Start: 12-02-2017 End: 01-21-2018 [...] 81 mg by mouth once daily. Active atorvastatin 20 mg oral tablet (20 sources) HMG-CoA Reductase Inhibitor Start: 07-09-2021 End: 11-10-2024 take 1 tablet by mouth once daily Atorvastatin 20 mg tablet Discontinued 20 mg PO DAILY November 18, 2023 12:00am November 10, 2024 5:44pm CHOLESTEROL Comment on above: Take 20 mg by mouth once daily. calcium chloride 0.0014 meq/ml / potassium chloride [...] AM EDT 05/12/2024 07/14/2024 Discontinued Start: 02-06-2024 End: 11-10-2024 take 1 tablet by mouth twice daily 30 minutes after mealtime Capecitabine 500 mg tablet Discontinued 1500 mg PO TWICE A DAY February 06, 2024 1:00am November 10, 2024 5:44pm for 14 days per 21-day cycle; must [...] 05/10/2024 Discontinued clindamycin 300 mg oral capsule (3 sources) Lincosamide Antibacterial Start: 12-02-2017 End: 01-21-2018 take 1 capsule by mouth three times daily Clindamycin Hcl 300 MG capsule Discontinued 300 mg PO THREE TIMES A DAY 21 December 02, 2017 12:00am January 21, 2018 11:47am clopidogrel 75 mg oral tablet (10 sources) P2Y12 Platelet Inhibitor Start: 11-14-2017 End: [...] REFRIGERATE, Intraprocedure Lactobac Acidoph-Fructooligos 1 EACH tablet (3 sources) Start: 12-02-2017 End: 01-21-2018 Lactobac Acidoph-Fructooligos [...] Active pravastatin sodium 40 mg oral tablet (3 sources) HMG-CoA Reductase Inhibitor Start: 11-14-2017 End: [...] Problem Classification Problem Date Documented Date Episodic/Chronic Abdominal pain (20 sources) Unspecified abdominal pain; Translations: [Abdominal pain] Onset: 4 11-18-2023 Episodic Biliary tract disease (1 source) Obstruction of bile duct; Translations: [Biliary obstruction] Onset: 4 Chronic Biliary tract disease (20 sources) Calculus of common bile duct with acute cholecystitis; Translations: [Calculus of bile duct with acute cholecystitis without obstruction] Onset: 4 11-19-2023 Episodic Cancer of liver and intrahepatic bile duct [...] 06-08-2024 Episodic Other non-epithelial cancer of skin (4 sources) Personal history of other malignant neoplasm of skin; 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] Onset: 2 11-26-2017 Episodic Comment on above: 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 Ovarian cyst (2 sources) Cyst of left ovary; Translations: [Unspecified ovarian cyst, left side] 08-28-2024 Episodic Unclassified (1 source) Established Patient Onset: 5 Unclassified (1 source) Post Op Follow Up Onset: 4 Past or Other Problems Problem Classification Problem Date Documented Da te Episodic/Chronic Cataract (20 sources) Senile combined form cataract of right eye; Translations: [Combined forms of age-related cataract, right eye] Onset: 08-07-2021 Resolved: 09-07-2021 Chronic Deficiency and other anemia (1 source) Anemia, unspecified; Translations: [Anemia, unspecified type] Onset: 12-16-2023 Episodic Other aftercare (1 source) alf (current) use of antithrombotics/ant iplatelets; Translations: [alf (current) use of antithrombotics/ant iplatelets] Onset: 08-30-2021 [...] Test Name Value Interpretation Reference Range Facility Absolute lymphocyte countOrd ered By: Janet Sullivan on 11-10-2024 Lymphocytes Auto (Unsp spec) [#/Vol] 0.13 10*3/uL Low 0.83-4.51 [facility] Absolute neutrophil countOrd ered By: Janet Sullivan on 11-10-2024 Neutrophils (Bld) [#/Vol] 5.3 10*3/uL 2.0-7.7 [facility] Anion gap in Serum or Plasma Ordered By: Janet Sullivan on 11-10-2024 Anion gap [Moles/Vol] 15 mmol/L 5-15 [facility] Automated lymphocyte count a s percentage of total leukocytesOrdered By: Janet Sullivan on 11-10-2024 Lymphocytes/100 WBC Auto (Unsp spec) 2.3 % Low 19-41 [facility] BUN/creatinine ratioOrdered By: Janet Sullivan on 11-10-2024 Urea nitrogen/Creatinine [Mass ratio] 19.3 mg/mg 10-20 [facility] Basophil percentageOrdered B y: Janet Sullivan on 11-10-2024 Basophils/100 WBC (Bld) 0.2 % 0-1 [facility] Bilirubin Test strip Ql (U)O rdered By: Janet Sullivan on 11-10-2024 Bilirubin Ql (U) 6 mg/dL High Negative [facility] Comment on above: COLOR OF URINE MAY A FFECT DIPSTICK RESULTS. Bilirubin directOrdered By: Janet Sullivan on 11-10-2024 Bilirubin.direct [Mass/Vol] 6.51 mg/dL High 0.00-0.30 [facility] Bilirubin, totalOrdered By: Janet Sullivan on 11-10-2024 Bilirubin [Mass/Vol] 8.79 mg/dL High 0.00-1.30 [facility] Blood manual differential co mment interpretation (narrative result)Ordered By: Janet Sullivan on 11-10-2024 Manual differential comment Gurvinder (Bld) [Interp] SCANNED [facility] Carbon dioxide, total [Moles /volume] in Central venous bloodOrdered By: Janet Sullivan on 11-10-2024 CO2 [Moles/Vol] 20.5 mmol/L Low 21.0-32.0 [facility] Chloride assayOrdered By: Jostin Sullivan on 11-10-2024 Chloride [Moles/Vol] 102 mmol/L 98-108 [facility] Eosinophil percentageOrdered By: Janet Sullivan on 11-10-2024 Eosinophils/100 WBC (Bld) 0.0 % 0-5 [facility] Erythrocyte distribution wid th ratioOrdered By: Janet Sullivan on 11-10-2024 Erythrocyte distribution width (RBC) [Ratio] 17.2 % High 11.6-14.6 [facility] Erythrocyte distribution wid th standard deviationOrdered By: Janet Sullivan on 11-10-2024 Erythrocyte distribution width (RBC) [Ratio] 59.0 fl High 35.1-43.9 [facility] Glomerular filtration rate ( GFR) estimation/1.73 sq m using serum, plasma, or whole bOrdered By: Janet Sullivan on 11-10-2024 GFR/1.73 sq M.predicted among non-blacks MDRD (S/P/Bld) [Vol rate/Area] 73 mL/min/{1.73_m2} >60 [facility] Comment on above: mL/min/1.73m2 CKD-EP I Creatinine Equation (2020) Hematocrit Auto (Bld) [Volum e fraction]Ordered By: Janet Sullivan on 11-10-2024 Hematocrit (Bld) [Volume fraction] 33.8 % Low 37-47 [facility] Hemoglobin measurementOrdere d By: Janet Sullivan on 11-10-2024 Hemoglobin (Bld) [Mass/Vol] 11.1 g/dL Low 12.0-15.0 [facility] Immature granulocytes/100 WB C Auto (Bld)Ordered By: Janet Sullivan on 11-10-2024 Immature granulocytes/100 WBC (Bld) 0.400 % 0.0-0.9 [facility] Comment on above: IG% - Immature Granu locytes (promyelocytes, myelocytes and metamyelocytes) > 1% indicates that a LEFT SHIFT is Present. Ketones Test strip Ql (U)Ord ered By: Janet Sullivan on 11-10-2024 Ketones Ql (U) Negative Negative [facility] Laboratory - Chemistry and C hemistry - challengeOrdered By: Janet Sullivan on 11-10-2024 AST [Catalytic activity/Vol] 76 U/L High <32 [facility] Lactic acid measurementOrder ed By: Janet Sullivan on 11-10-2024 Lactate [Moles/Vol] 1.4 mmol/L 0.0-2.0 [facility] Lipase measurementOrdered By : Janet Sullivan on 11-10-2024 Lipase [Catalytic activity/Vol] 16 U/L 13-75 [facility] Comment on above: Please note:LIPASE r evised reference range effective 22. New Lipase methodology. Expected to produce lower values than the previous assay method. NEW Reference Range: 13 - 75 U/L MCV (mean corpuscular volume ) determinationOrdered By: Janet Sullivan on 11-10-2024 MCV (RBC) [Entitic vol] 93.1 fL 81-99 [facility] Magnesium measurement (mass/ volume)Ordered By: Trever Nina on 11-10-2024 Magnesium (Unsp spec) [Mass/Vol] 1.7 mg/dL 1.5-2.2 [facility] Mean corpuscular hemoglobin (MCH) determinationOrdered By: Janet Sullivan on 11-10-2024 MCH (RBC) [Entitic mass] 30.6 pg 27.0-32.0 [facility] Mean corpuscular hemoglobin concentration (MCHC) determinationOrdered By: Janet Sullivan on 11-10-2024 MCHC (RBC) [Mass/Vol] 32.8 g/dL 32-36 [facility] Mean platelet volume determi nationOrdered By: Janet Sullivan on 11-10-2024 Platelet mean volume (Bld) [Entitic vol] 12.3 fL High 6.2-12.0 [facility] Microscopic analysis of urin e for red blood cells (RBC)Ordered By: Janet Sullivan on 11-10-2024 Microscopic analysis of urine for red blood cells (RBC) 0-5 SEEN /hpf 0-5 [facility] Monocyte percentageOrdered B y: Janet Sullivan on 11-10-2024 Monocytes/100 WBC (Bld) 1.6 % 0-10 [facility] Mucus LM Ql (Urine sed)Order ed By: Janet Sullivan on 11-10-2024 Mucus Ql (Urine sed) 1+ /hpf [facility] Neutrophil percentageOrdered By: Janet Sullivan on 11-10-2024 Neutrophils/100 WBC (Bld) 95.5 % High 47-70 [facility] Nitrite Test strip Ql (U)Ord ered By: Janet Sullivan on 11-10-2024 Nitrite Ql (U) Positive High Negative [facility] Nucleated red blood cell per centageOrdered By: Janet Sullivan on 11-10-2024 Nucleated RBC/100 WBC (Bld) [Ratio] 0 % 0-5 [facility] Platelet countOrdered By: Jostin Sullivan on 11-10-2024 Platelets (Bld) [#/Vol] 232 10*3/uL 150-450 [facility] Platelet estimateOrdered By: Janet Sullivan on 11-10-2024 Platelets LM Ql (Bld) ADEQUATE ADEQ [facility] Potassium measurement (mass/ volume)Ordered By: Janet Sullivan on 11-10-2024 Potassium (Unsp spec) [Mass/Vol] 3.6 mmol/L 3.3-5.1 [facility] Protein Test strip Ql (U)Ord ered By: Janet Sullivan on 11-10-2024 Protein Ql (U) 30 mg/dl High Negative [facility] RBC Auto (Bld) [#/Vol]Ordere d By: Janet Sullivan on 11-10-2024 RBC (Bld) [#/Vol] 3.63 10*6/uL Low 4.2-5.4 [facility] Serum creatinine measurement (mass/volume)Ordered By: Janet Sullivan on 11-10-2024 Creatinine [Mass/Vol] 0.82 mg/dL 0.70-1.20 [facility] Comment on above: Icterus present, Res ults may be affected. Serum globulin measurementOr dered By: Janet Sullivan on 11-10-2024 Globulin (S) [Mass/Vol] 3.0 g/dL 2.2-4.2 [facility] Serum glucose measurement (m ass/volume)Ordered By: Janet Sullivan on 11-10-2024 Glucose [Mass/Vol] 101 mg/dL High 70-[address] [facility] Serum or plasma alanine valadez otransferase (ALT) measurementOrdered By: Janet Sullivan on 11-10-2024 ALT [Catalytic activity/Vol] 58 U/L High <35 [facility] Serum or plasma albumin carrie urement (mass/volume)Ordered By: Janet Sullivan on 11-10-2024 Albumin [Mass/Vol] 3.3 g/dL Low 3.4-4.[address] [facility] Serum or plasma albumin/glob ulin mass ratioOrdered By: Janet Sullivan on 11-10-2024 Albumin/Globulin [Mass ratio] 1.1 {ratio} 0.9-2.4 [facility] Serum or plasma alkaline bryan sphatase measurementOrdered By: Janet Sullivan on 11-10-2024 ALP [Catalytic activity/Vol] 343 U/L High 35-104 [facility] Serum or plasma calcium carrie urement (mass/volume)Ordered By: Janet Sullivan on 11-10-2024 Calcium [Mass/Vol] 9.2 mg/dL 7.6-11.[address] [facility] Serum or plasma urea nitroge n measurement (mass/volume)Ordered By: Janet Sullivan on 11-10-2024 Urea nitrogen [Mass/Vol] 16 mg/dL 4-19 [facility] Sodium levelOrdered By: Sotero Sullivan on 11-10-2024 Sodium [Moles/Vol] 137 mmol/L 133-[address] [facility] Squamous epithelial cells de tection in urine sediment by light microscopyOrdered By: Janet Sullivan on 11-10-2024 Epithelial cells.squamous LM Ql (Urine sed) 5-10 SEEN /hpf 5-10 [facility] Total proteinOrdered By: Rianna Sullivan on 11-10-2024 Protein [Mass/Vol] 6.2 g/dL 5.9-8.[address] [facility] Troponin T.cardiac [Mass/vol ume] in Serum or Plasma by High sensitivity methodOrdered By: Janet Sullivan on 11-10-2024 Troponin T.cardiac High sensitivity method [Mass/Vol] 25 ng/L High <14 [facility] Troponin T.cardiac High sensitivity method [Mass/Vol] 26 ng/L High <14 [facility] Troponin T.cardiac High sensitivity method [Mass/Vol] 26 ng/L High <14 [facility] Urine clarityOrdered By: Rianna Sullivan on 11-10-2024 Clarity (U) Cloudy Clear [facility] Urine color determinationOrd ered By: Janet Sullivan on 11-10-2024 Color (U) Yellow Yellow [facility] Urine glucose detectionOrder ed By: Janet Sullivan on 11-10-2024 Glucose Ql (U) Normal mg/dl Normal [facility] Urine leukocyte esterase det ection by dipstickOrdered By: Janet Sullivan on 11-10-2024 Leukocyte esterase Test strip Ql (U) 25 /ul High Negative [facility] Urine pHOrdered By: Janet doherty on 11-10-2024 pH (U) 5.0 [pH] 5.0 - 8.0 [facility] Urine sediment bacteria coun t by microscopy (number/high power field)Ordered By: Janet Sullivan on 11-10-2024 Bacteria LM.HPF (Urine sed) [#/Area] 2 /[HPF] None Seen [facility] Urine specific gravity measu rementOrdered By: Janet Sullivan on 11-10-2024 Specific gravity (U) [Rel density] 1.010 1.002-1.03 0 [facility] Urine urobilinogen measureme ntOrdered By: Janet Sullivan on 11-10-2024 Urobilinogen Ql (U) 4 mg/dl High Normal [facility] White blood cell (WBC) count Ordered By: Janet Sullivan on 11-10-2024 WBC (Bld) [#/Vol] 5.6 10*3/uL 4.4-11.[address] [facility] White blood cell countOrdere d By: Janet Sullivan on 11-10-2024 White blood cell count 0-5 SEEN /hpf 0-5 [facility] ANES POSTPROC EVALon 025 ANES POSTPROC EVAL Normal [facility] ANES PRE-OPon 11-09-2024 ANES PRE-OP Normal [facility] ERCPon 11-09-2024 ERCP Normal [facility] ERCP Study observation Narra tiveon 11-09-2024 [facility] Gastrointestinal Endoscopy Patient Name: Marie Blair Procedure Date: 11/09/2024 9:17 AM Date of : 1945 Admit Type: Outpatient Room: [place] [address] Gender: Female Note Status: Finalized Attending MD: Stacy Santamaria MD, [id number] Procedure: ERCP Indications: Jaundice, Elevated liver enzymes Providers: Stacy Santamaria MD Patient Profile: Refer to note in patient chart for documentation of history and physical. Referring Physician: Tin Jose (Referring MD) Medicines: General Anesthesia, Indomethacin 100 mg NE Complications: No immediate complications. Requesting Provider: Mikala Joens MD Procedure: Pre-Anesthesia Assessment: - Prior to [...] performed under general anesthesia (GA) Findings: A merchandising specialist film of the abdomen was obtained. Surgical [...] localized hi (more content not included)... PROVATION [facility] Radiology Study observation (narrative) [facility] Comprehensive metabolic 2000 panelon 11-02-2024 Albumin [Mass/Vol] 3.9 g/dL Normal 3.9-4.9 [facility] Comment on above: Order Comment: Speci men Type: BLOOD SPECIMENOrdering Facility: [facility] Address: [address] [place] [address] Performed By: #### 2 4323-8 ####[facility] LABORATORYCLIA [id number] [place] [address] [place] ALP [Catalytic activity/Vol] 329 U/L High 34-123 [facility] Comment on above: Order Comment: Speci men Type: BLOOD SPECIMENOrdering Facility: [facility] Address: [address] [place] [address] Performed By: #### 2 4323-8 ####[facility] LABORATORYCLIA [id number] [place] [address] [place] ALT With P-5'-P [Catalytic activity/Vol] 59 U/L High 7-38 [facility] Comment on above: Order Comment: Speci men Type: BLOOD SPECIMENOrdering Facility: [facility] Address: [address] [place] [address] Performed By: #### 2 4323-8 ####[facility] LABORATORYCLIA [id number] [address] [place] Anion gap [Moles/Vol] 13 mmol/L Normal 8-15 [facility] Comment on above: Order Comment: Speci men Type: BLOOD SPECIMENOrdering Facility: [facility] Address: [address] [place] [address] Performed By: #### 2 4323-8 ####[facility] LABORATORYCLIA [id number] [address] [place] AST With P-5'-P [Catalytic activity/Vol] 70 U/L High 13-35 [facility] Comment on above: Order Comment: Speci men Type: BLOOD SPECIMENOrdering Facility: [facility] Address: [address] [place] [address] Performed By: #### 2 4323-8 ####[facility] LABORATORYCLIA [id number] [place] [address] [place] Bilirubin [Mass/Vol] 7.5 mg/dL High 0.2-1.3 [facility] Comment on above: Order Comment: Speci men Type: BLOOD SPECIMENOrdering Facility: [facility] Address: [address] [place] [address] Performed By: #### 2 4323-8 ####[facility] LABORATORYCLIA [id number] [place] [address] [place] Calcium [Mass/Vol] 9.6 mg/dL Normal 8.5-10.2 [facility] Comment on above: Order Comment: Speci men Type: BLOOD SPECIMENOrdering Facility: [facility] Address: [address] [place] [address] Performed By: #### 2 4323-8 ####[facility] LABORATORYCLIA [id number] [place] [address] [place] Chloride [Moles/Vol] 103 mmol/L Normal 98-107 [facility] Comment on above: Order Comment: Speci men Type: BLOOD SPECIMENOrdering Facility: [facility] Address: [address] [place] [address] Performed By: #### 2 4323-8 ####[facility] LABORATORYCLIA [id number] [place] [address] [place] CO2 [Moles/Vol] 23 mmol/L Normal 22-30 [facility] Comment on above: Order Comment: Speci men Type: BLOOD SPECIMENOrdering Facility: [facility] Address: [address] [place] [address] Performed By: #### 2 4323-8 ####[facility] LABORATORYCLIA [id number] [place] [address] [place] Creatinine [Mass/Vol] 0.67 mg/dL Normal 0.58-0.96 [facility] Comment on above: Order Comment: Speci men Type: BLOOD SPECIMENOrdering Facility: [facility] Address: [address] [place] [address] Performed By: #### 2 4323-8 ####[facility] LABORATORYCLIA [id number] [place] [address] [place] eGFRcr SerPlBld CKD-EPI 2020 89 mL/min/1.73m??? Normal >=60 [facility] Comment on above: Order Comment: Speci men Type: BLOOD SPECIMENOrdering Facility: [facility] Address: [address] [place] [address] Result Comment: Rosana mated Glomerular Filtration Rate [...] actual GFR. Performed By: #### 2 4323-8 ####[facility] LABORATORYCLIA [id number] [place] [address] [place] Glucose [Mass/Vol] 109 mg/dL High 74-99 [facility] Comment on above: Order Comment: Antwan rowland Type: BLOOD SPECIMENOrdering Facility: [facility] Address: [address] [place] [address] Result Comment: The [place] [employer] (ADA) provides guidance for cutoff [...] Standards of Medical Care in Diabetes 2016, [place] [employer]. Diabetes Care. 2016.39(Suppl 1). Performed By: #### 2 4323-8 ####[facility] [facility]OSPITAL LABORATORYCLIA [id number] [place] [address] [place] Potassium [Moles/Vol] 4.1 mmol/L Normal 3.7-5.1 [facility] Comment on above: Order Comment: Antwan rowland Type: BLOOD SPECIMENOrdering Facility: [facility] Address: [address] [id number] Performed By: #### 2 4323-8 ####[facility] LABORATORYCLIA [id number] [place] [address] [place] Protein [Mass/Vol] 7.0 g/dL Normal 6.3-8.0 [facility] Comment on above: Order Comment: Speci men Type: BLOOD SPECIMENOrdering Facility: [facility] Address: [address] [place] [address] Performed By: #### 2 4323-8 ####[facility] LABORATORYCLIA [id number] [place] [address] [place] Sodium [Moles/Vol] 139 mmol/L Normal 136-144 [facility] Comment on above: Order Comment: Speci men Type: BLOOD SPECIMENOrdering Facility: [facility] Address: [address] [place] [address] Performed By: #### 2 4323-8 ####[facility] LABORATORYCLIA [id number] [place] [address] [place] Urea nitrogen [Mass/Vol] 14 mg/dL Normal 7-21 [facility] Comment on above: Order Comment: Speci men Type: BLOOD SPECIMENOrdering Facility: [facility] Address: [address] [place] [address] Performed By: #### 2 4323-8 ####[facility] LABORATORYCLIA [id number] [place] [address] [place] HISTORY PHYSICALon HISTORY PHYSICAL Normal [facility] CNPNon 10-26-2024 CNPN Normal [facility] CBC W Auto Differential pane l (Bld)on 10-25-2024 Basophils (Bld) [#/Vol] 10*3/uL Normal <0.11 [facility] Comment on above: Order Comment: Speci men Type: BLOOD SPECIMENOrdering Facility: [facility] Address: [address] [place] [address] Performed By: #### 5 7021-8 ####[facility] [id number] [place] [address] [place] Basophils/100 WBC (Bld) 0.4 % Normal [facility] Comment on above: Order Comment: Speci men Type: BLOOD SPECIMENOrdering Facility: [facility] Address: [address] [place] [address] Performed By: #### 5 7021-8 ####[facility] MILLWANA MLIA [id number] [place] [address] [place] Differential cell count method Nom (Bld) Auto Normal [facility] Comment on above: Order Comment: Speci men Type: BLOOD SPECIMENOrdering Facility: [facility] Address: [address] [place] [address] Performed By: #### 5 7021-8 ####[facility] EMER[facility]ENCYANA MLIA [id number] [place] [address] [place] Eosinophils (Bld) [#/Vol] 0.06 10*3/uL Normal <0.46 [facility] Comment on above: Order Comment: Speci men Type: BLOOD SPECIMENOrdering Facility: [facility] Address: [address] [place] [address] Performed By: #### 5 7021-8 ####[facility] MLIA [id number] [place] [address] [place] Eosinophils/100 WBC (Bld) 1.1 % Normal [facility] Comment on above: Order Comment: Speci men Type: BLOOD SPECIMENOrdering Facility: [facility] Address: [address] [place] [address] Performed By: #### 5 7021-8 ####[facility] MLIA [id number] [place] [address] [place] Erythrocyte distribution width (RBC) [Ratio] 16.5 % High 11.5-15.0 [facility] Comment on above: Order Comment: Speci men Type: BLOOD SPECIMENOrdering Facility: [facility] Address: [address] [place] [address] Performed By: #### 5 7021-8 ####[facility] EMERGENCYNCLIA [id number] [place] [address] [place] Hematocrit (Bld) [Volume fraction] 36.2 % Normal 36.0-46.0 [facility] Comment on above: Order Comment: Speci men Type: BLOOD SPECIMENOrdering Facility: [facility] Address: [address] [place] [address] Performed By: #### 5 7021-8 ####[facility] [id number] [place] [address] [place] Hemoglobin (Bld) [Mass/Vol] 12.0 g/dL Normal 11.5-15.5 [facility] Comment on above: Order Comment: Speci men Type: BLOOD SPECIMENOrdering Facility: [facility] Address: [address] [place] [address] Performed By: #### 5 7021-8 ####[facility] [id number] [place] [address] [place] Immature granulocytes (Bld) [#/Vol] 10*3/uL Normal <0.10 [facility] Comment on above: Order Comment: Speci men Type: BLOOD SPECIMENOrdering Facility: [facility] Address: [address] [place] [address] Performed By: #### 5 7021-8 ####[facility] [id number] [place] [address] [place] Immature granulocytes/100 WBC (Bld) 0.2 % Normal [facility] Comment on above: Order Comment: Speci men Type: BLOOD SPECIMENOrdering Facility: [facility] Address: [address] [place] [address] Performed By: #### 5 7021-8 ####[facility] [id number] [place] [address] [place] Lymphocytes (Bld) [#/Vol] 1.48 10*3/uL Normal 1.00-4.00 [facility] Comment on above: Order Comment: Speci men Type: BLOOD SPECIMENOrdering Facility: [facility] Address: [address] [place] [address] Performed By: #### 5 7021-8 ####[facility] SHANDRACASEY [id number] [place] [address] [place] Lymphocytes/100 WBC (Bld) 26.8 % Normal [facility] Comment on above: Order Comment: Speci men Type: BLOOD SPECIMENOrdering Facility: [facility] Address: [address] [place] [address] Performed By: #### 5 7021-8 ####[facility] EMERGENCYNCSANDRA [id number] [place] [address] [place] MCH (RBC) [Entitic mass] 30.7 pg Normal 26.0-34.0 [facility] Comment on above: Order Comment: Speci men Type: BLOOD SPECIMENOrdering Facility: [facility] Address: [address] [place] [address] Performed By: #### 5 7021-8 ####[facility] EMERGENCYNCSofie [id number] [place] [address] [place] MCHC (RBC) [Mass/Vol] 33.1 g/dL Normal 30.5-36.0 [facility] Comment on above: Order Comment: Speci men Type: BLOOD SPECIMENOrdering Facility: [facility] Address: [address] [place] [address] Performed By: #### 5 7021-8 ####[facility] EMERGENCYNCLIA [id number] [place] [address] [place] MCV (RBC) [Entitic vol] 92.6 fL Normal 80.0-100.0 [facility] Comment on above: Order Comment: Speci men Type: BLOOD SPECIMENOrdering Facility: [facility] Address: [address] [place] [address] Performed By: #### 5 7021-8 ####[facility] MILLTOWNCLIA [id number] [place] [address] [place] Monocytes (Bld) [#/Vol] 0.65 10*3/uL Normal <0.87 [facility] Comment on above: Order Comment: Speci men Type: BLOOD SPECIMENOrdering Facility: [facility] Address: [address] [place] [address] Performed By: #### 5 7021-8 ####[facility] SOUTHWMNLIA [id number] [place] [address] [place] Monocytes/100 WBC (Bld) 11.8 % Normal [facility] Comment on above: Order Comment: Speci men Type: BLOOD SPECIMENOrdering Facility: [facility] Address: [address] [place] [address] Performed By: #### 5 7021-8 ####[facility] HOSPITALLIA [id number] [place] [address] [place] Neutrophils (Bld) [#/Vol] 3.31 10*3/uL Normal 1.45-7.50 [facility] Comment on above: Order Comment: Speci men Type: BLOOD SPECIMENOrdering Facility: [facility] Address: [address] [place] [address] Performed By: #### 5 7021-8 ####[facility] EMERGENCYNCLIA [id number] [place] [address] [place] Neutrophils/100 WBC (Bld) 59.7 % Normal [facility] Comment on above: Order Comment: Speci men Type: BLOOD SPECIMENOrdering Facility: [facility] Address: [address] [place] [address] Performed By: #### 5 7021-8 ####[facility] EMERGENCYNCLIA [id number] [place] [address] [place] Nucleated RBC (Bld) [#/Vol] 10*3/uL Normal <0.01 [facility] Comment on above: Order Comment: Speci men Type: BLOOD SPECIMENOrdering Facility: [facility] Address: [address] [place] [address] Performed By: #### 5 7021-8 ####[facility] [id number] [place] [address] [place] Nucleated RBC/100 WBC (Bld) [Ratio] 0.0 /100 WBC Normal [facility] Comment on above: Order Comment: Speci men Type: BLOOD SPECIMENOrdering Facility: [facility] Address: [address] [place] [address] Performed By: #### 5 7021-8 ####[facility] [id number] [place] [address] [place] Platelet mean volume (Bld) [Entitic vol] 11.4 fL Normal 9.0-12.7 [facility] Comment on above: Order Comment: Speci men Type: BLOOD SPECIMENOrdering Facility: [facility] Address: [address] [place] [address] Performed By: #### 5 7021-8 ####[facility] [id number] [place] [address] [place] Platelets (Bld) [#/Vol] 259 10*3/uL Normal 150-400 [facility] Comment on above: Order Comment: Speci men Type: BLOOD SPECIMENOrdering Facility: [facility] Address: [address] [place] [address] Performed By: #### 5 7021-8 ####[facility]ITAL[facility] [id number] [place] [address] [place] RBC (Bld) [#/Vol] 3.91 10*6/uL Normal 3.90-5.20 [facility] Comment on above: Order Comment: Speci men Type: BLOOD SPECIMENOrdering Facility: [facility] Address: [address] [place] [address] Performed By: #### 5 7021-8 ####[facility] SHANDRAWNCLIA [id number] [place] [address] [place] WBC (Bld) [#/Vol] 5.53 10*3/uL Normal 3.70-11.00 [facility] Comment on above: Order Comment: Speci men Type: BLOOD SPECIMENOrdering Facility: [facility] Address: [address] [place] [address] Performed By: #### 5 7021-8 ####[facility] EMERGENCYNCLIA [id number] [place] [address] [place] Comprehensive metabolic 2000 panelon 10-25-2024 Albumin [Mass/Vol] 3.7 g/dL Low 3.9-4.9 [facility] Comment on above: Order Comment: Speci men Type: BLOOD SPECIMENOrdering Facility: [facility] Address: [address] [place] [address] Performed By: #### 2 4323-8 ####[facility] EMERGENCYNCLIA [id number] [place] [address] [place] ALP [Catalytic activity/Vol] 309 U/L High 34-123 [facility] Comment on above: Order Comment: Speci men Type: BLOOD SPECIMENOrdering Facility: [facility] Address: [address] [place] [address] Performed By: #### 2 4323-8 ####[facility] EMERGENCYNCLIA [id number] [place] [address] [place] ALT [Catalytic activity/Vol] 68 U/L High 7-38 [facility] Comment on above: Order Comment: Speci men Type: BLOOD SPECIMENOrdering Facility: [facility] Address: [address] [place], [place] [id number] Performed By: #### 2 4323-8 ####[facility] MILLTOWNCLIA [id number] [place] [address] [place] Anion gap [Moles/Vol] 12 mmol/L Normal 8-15 [facility] Comment on above: Order Comment: Speci men Type: BLOOD SPECIMENOrdering Facility: [facility] Address: [address] [place] [address] Performed By: #### 2 4323-8 ####[facility] MILLWNCLIA [id number] [place] [address] [place] AST [Catalytic activity/Vol] 60 U/L High 13-35 [facility] Comment on above: Order Comment: Speci men Type: BLOOD SPECIMENOrdering Facility: [facility] Address: [address] [place] [address] Performed By: #### 2 4323-8 ####[facility] EMERGENCYNCLIA [id number] [place] [address] [place] Bilirubin [Mass/Vol] 6.8 mg/dL High 0.2-1.3 [facility] Comment on above: Order Comment: Speci men Type: BLOOD SPECIMENOrdering Facility: [facility] Address: [address] [place] [address] Performed By: #### 2 4323-8 ####[facility] MILLTOWNCLIA [id number] [place] [address] [place] Calcium [Mass/Vol] 10.0 mg/dL Normal 8.5-10.2 [facility] Comment on above: Order Comment: Speci men Type: BLOOD SPECIMENOrdering Facility: [facility] Address: [address] [place] [address] Performed By: #### 2 4323-8 ####[facility] SOUTHWNCLIA [id number] [place] [address] [place] Chloride [Moles/Vol] 109 mmol/L High 98-107 [facility] Comment on above: Order Comment: Speci men Type: BLOOD SPECIMENOrdering Facility: [facility] Address: [address] [place] [address] Performed By: #### 2 4323-8 ####[facility] EMERGENCYNCDAVIS [facility] [id number] [place] [address] [place] CO2 [Moles/Vol] 20 mmol/L Low 22-30 [facility] Comment on above: Order Comment: Speci men Type: BLOOD SPECIMENOrdering Facility: [facility] Address: [address] [place] [address] Performed By: #### 2 4323-8 ####[facility] [id number] [place] [address] [place] Creatinine [Mass/Vol] 0.71 mg/dL Normal 0.58-0.96 [facility] Comment on above: Order Comment: Speci men Type: BLOOD SPECIMENOrdering Facility: [facility] Address: [address] [place] [address] Performed By: #### 2 4323-8 ####[facility] [id number] [place] [address] [place] eGFRcr SerPlBld CKD-EPI 2020 87 mL/min/1.73m??? Normal >=60 [facility] Comment on above: Order Comment: Speci men Type: BLOOD SPECIMENOrdering Facility: [facility] Address: [address] [place] [address] Result Comment: Rosana mated Glomerular Filtration Rate [...] actual GFR. Performed By: #### 2 4323-8 ####[facility] SHANDRAWNCLIA [id number] [place] [address] [place] Glucose [Mass/Vol] 105 mg/dL High 74-99 [facility] Comment on above: Order Comment: Speci men Type: BLOOD SPECIMENOrdering Facility: [facility] Address: [address] [place], [place] [address] Result Comment: The [place] Diabetes Association (ADA) provides guidance for cutoff [...] Standards of Medical Care in Diabetes 2016, [place] Diabetes Association. Diabetes Care. 2016.39(Suppl 1). Performed By: #### 2 4323-8 ####[facility] [id number] [place] [address] [place] Potassium [Moles/Vol] 4.0 mmol/L Normal 3.7-5.1 [facility] Comment on above: Order Comment: Speci men Type: BLOOD SPECIMENOrdering Facility: [facility] Address: [address] [place] [address] Performed By: #### 2 4323-8 ####[facility] [id number] [place] [address] [place] Protein [Mass/Vol] 7.0 g/dL Normal 6.3-8.0 [facility] Comment on above: Order Comment: Speci men Type: BLOOD SPECIMENOrdering Facility: [facility] Address: [address] [place] [address] Performed By: #### 2 4323-8 ####[facility] MILLWNCLIA [id number] [place] [address] [place] Sodium [Moles/Vol] 141 mmol/L Normal 136-144 [facility] Comment on above: Order Comment: Speci men Type: BLOOD SPECIMENOrdering Facility: [facility] Address: [address] [place] [address] Performed By: #### 2 4323-8 ####[facility] EMERGENCYNCLIA [id number] [place] [address] [place] Urea nitrogen [Mass/Vol] 17 mg/dL Normal 7-21 [facility] Comment on above: Order Comment: Speci men Type: BLOOD SPECIMENOrdering Facility: [facility] Address: [address] [place] [address] Performed By: #### 2 4323-8 ####[facility] EMERGENCYNCLIA [id number] [place] [address] [place] CNPNon 10-20-2024 CNPN Normal [facility] CT ABD/PEL W IVCONon 025 CT ABD/PEL W IVCON Normal [facility] CT CHEST W IVCONon 5 CT CHEST W IVCON Normal [facility] Creatinine and Glomerular fi ltration rate.predicted panel (S/P/Bld)on 10-13-2024 Creatinine [Mass/Vol] 0.72 mg/dL Normal 0.58-0.96 [facility] Comment on above: Order Comment: Speci men Type: BLOOD SPECIMENOrdering Facility: [facility] Address: [facility] [place] [id number] Performed By: #### 4 5066-8 ####[facility] EMERGENCYNCLIA [id number] [place] [address] [place] eGFRcr SerPlBld CKD-EPI 2020 85 mL/min/1.73m??? Normal >=60 [facility] Comment on above: Order Comment: Speci men Type: BLOOD SPECIMENOrdering Facility: [facility] Address: [address] [place], [place] [address] Result Comment: Rosana mated Glomerular Filtration Rate [...] actual GFR. Performed By: #### 4 5066-8 ####[facility] [id number] [place] [address] [place] CNPNon 10-11-2024 CNPN Normal [facility] CBC W Auto Differential pane l (Bld)on 07-14-2024 Basophils (Bld) [#/Vol] 0.03 10*3/uL Normal <0.11 [facility] Comment on above: Order Comment: Speci men Type: BLOOD SPECIMENOrdering Facility: [facility] Address: [address] [place] [address] Performed By: #### 5 7021-8 ####[facility] [id number] [place] [address] [place] Basophils/100 WBC (Bld) 0.4 % Normal [facility] Comment on above: Order Comment: Speci men Type: BLOOD SPECIMENOrdering Facility: [facility] Address: [address] [place] [address] Performed By: #### 5 7021-8 ####[facility] [id number] [place] [address] [place] Differential cell count method Nom (Bld) Auto Normal [facility] Comment on above: Order Comment: Speci men Type: BLOOD SPECIMENOrdering Facility: [facility] Address: [address] [place] [address] Performed By: #### 5 7021-8 ####[facility] MILLWNCLIA [id number] [place] [address] [place] Eosinophils (Bld) [#/Vol] 0.14 10*3/uL Normal <0.46 [facility] Comment on above: Order Comment: Speci men Type: BLOOD SPECIMENOrdering Facility: [facility] Address: [address] [place] [address] Performed By: #### 5 7021-8 ####[facility] SOUTHWMNLIA [id number] [place] [address] [place] Eosinophils/100 WBC (Bld) 2.1 % Normal [facility] Comment on above: Order Comment: Speci men Type: BLOOD SPECIMENOrdering Facility: [facility] Address: [address] [place] [address] Performed By: #### 5 7021-8 ####[facility] HOSPITALLIA [id number] [place] [address] [place] Erythrocyte distribution width (RBC) [Ratio] 16.7 % High 11.5-15.0 [facility] Comment on above: Order Comment: Speci men Type: BLOOD SPECIMENOrdering Facility: [facility] Address: [address] [place] [address] Performed By: #### 5 7021-8 ####[facility] MILLWNCLIA [id number] [place] [address] [place] Hematocrit (Bld) [Volume fraction] 32.0 % Low 36.0-46.0 [facility] Comment on above: Order Comment: Speci men Type: BLOOD SPECIMENOrdering Facility: [facility] Address: [address] [place] [address] Performed By: #### 5 7021-8 ####[facility] MILLESTHERVILLENCLIA [id number] [place] [address] [place] Hemoglobin (Bld) [Mass/Vol] 10.8 g/dL Low 11.5-15.5 [facility] Comment on above: Order Comment: Speci men Type: BLOOD SPECIMENOrdering Facility: [facility] Address: [address] [place] [address] Performed By: #### 5 7021-8 ####[facility] [id number] [place] [address] [place] Immature granulocytes (Bld) [#/Vol] 0.03 10*3/uL Normal <0.10 [facility] Comment on above: Order Comment: Speci men Type: BLOOD SPECIMENOrdering Facility: [facility] Address: [address] [place] [address] Performed By: #### 5 7021-8 ####[facility] [id number] [place] [address] [place] Immature granulocytes/100 WBC (Bld) 0.4 % Normal [facility] Comment on above: Order Comment: Speci men Type: BLOOD SPECIMENOrdering Facility: [facility] Address: [address] [place] [address] Performed By: #### 5 7021-8 ####[facility] [id number] [place] [address] [place] Lymphocytes (Bld) [#/Vol] 2.84 10*3/uL Normal 1.00-4.00 [facility] Comment on above: Order Comment: Speci men Type: BLOOD SPECIMENOrdering Facility: [facility] Address: [address] [place] [address] Performed By: #### 5 7021-8 ####[facility] HOSPITALLIA [id number] [place] [address] [place] Lymphocytes/100 WBC (Bld) 41.9 % Normal [facility] Comment on above: Order Comment: Speci men Type: BLOOD SPECIMENOrdering Facility: [facility] Address: [address] [place] [address] Performed By: #### 5 7021-8 ####[facility] SHANDRAESTHERVILLENCSANDRA [id number] [place] [address] [place] MCH (RBC) [Entitic mass] 35.3 pg High 26.0-34.0 [facility] Comment on above: Order Comment: Speci men Type: BLOOD SPECIMENOrdering Facility: [facility] Address: [address] [place] [address] Performed By: #### 5 7021-8 ####[facility] EMERGENCYNCLIA [id number] [place] [address] [place] MCHC (RBC) [Mass/Vol] 33.8 g/dL Normal 30.5-36.0 [facility] Comment on above: Order Comment: Speci men Type: BLOOD SPECIMENOrdering Facility: [facility] Address: [address] [place] [address] Performed By: #### 5 7021-8 ####[facility] EMERGENCYNCLIA [id number] [address] [place] MCV (RBC) [Entitic vol] 104.6 fL High 80.0-100.0 [facility] Comment on above: Order Comment: Speci men Type: BLOOD SPECIMENOrdering Facility: [facility] Address: [address] [place] [address] Performed By: #### 5 7021-8 ####[facility] EMERGENCYNCLIA [id number] [place] [address] [place] Monocytes (Bld) [#/Vol] 0.70 10*3/uL Normal <0.87 [facility] Comment on above: Order Comment: Speci men Type: BLOOD SPECIMENOrdering Facility: [facility] Address: [address] [place] [address] Performed By: #### 5 7021-8 ####[facility] EMERGENCYNCLIA [id number] [place] [address] [place] Monocytes/100 WBC (Bld) 10.3 % Normal [facility] Comment on above: Order Comment: Speci men Type: BLOOD SPECIMENOrdering Facility: [facility] Address: [address] [place] [address] Performed By: #### 5 7021-8 ####[facility] EMERGENCYNCLIA [id number] [place] [address] [place] Neutrophils (Bld) [#/Vol] 3.03 10*3/uL Normal 1.45-7.50 [facility] Comment on above: Order Comment: Speci men Type: BLOOD SPECIMENOrdering Facility: [facility] Address: [address] [place] [address] Performed By: #### 5 7021-8 ####[facility] EMERGENCYNCLIA [id number] [place] [address] [place] Neutrophils/100 WBC (Bld) 44.9 % Normal [facility] Comment on above: Order Comment: Speci men Type: BLOOD SPECIMENOrdering Facility: [facility] Address: [address] [place] [address] Performed By: #### 5 7021-8 ####[facility] EMERGENCYNCLIA [id number] [place] [address] [place] Nucleated RBC (Bld) [#/Vol] 10*3/uL Normal <0.01 [facility] Comment on above: Order Comment: Speci men Type: BLOOD SPECIMENOrdering Facility: [facility] Address: [address] [place] [address] Performed By: #### 5 7021-8 ####[facility] EMERGENCYNCLIA [id number] [place] [address] [place] Nucleated RBC/100 WBC (Bld) [Ratio] 0.0 /100 WBC Normal [facility] Comment on above: Order Comment: Speci men Type: BLOOD SPECIMENOrdering Facility: [facility] Address: [address] [place] [address] Performed By: #### 5 7021-8 ####[facility] SHANDRAESTHERVILLEANA MSANDRA [id number] [place] [address] [place] Platelet mean volume (Bld) [Entitic vol] 9.2 fL Normal 9.0-12.7 [facility] Comment on above: Order Comment: Speci men Type: BLOOD SPECIMENOrdering Facility: [facility] Address: [address] [place] [address] Performed By: #### 5 7021-8 ####[facility] EMERGENCYNCSANDRA [id number] [place] [address] [place] Platelets (Bld) [#/Vol] 232 10*3/uL Normal 150-400 [facility] Comment on above: Order Comment: Speci men Type: BLOOD SPECIMENOrdering Facility: [facility] Address: [address] [place] [address] Performed By: #### 5 7021-8 ####[facility] EMERGENCYANA MSANDRA [id number] [place] [address] [place] RBC (Bld) [#/Vol] 3.06 10*6/uL Low 3.90-5.20 [facility] Comment on above: Order Comment: Speci men Type: BLOOD SPECIMENOrdering Facility: [facility] Address: [address] [place] [address] Performed By: #### 5 7021-8 ####[facility] EMERGENCYNCLIA [id number] [place] [address] [place] WBC (Bld) [#/Vol] 6.77 10*3/uL Normal 3.70-11.00 [facility] Comment on above: Order Comment: Speci men Type: BLOOD SPECIMENOrdering Facility: [facility] Address: [address] [place] [address] Performed By: #### 5 7021-8 ####[facility] EMERGENCYNCLIA [id number] [place] [address] [place] CNOVSPon 07-14-2024 CNOVSP Normal [facility] Comprehensive metabolic 2000 panelon 07-14-2024 Albumin [Mass/Vol] 4.0 g/dL Normal 3.9-4.9 [facility] Comment on above: Order Comment: Speci men Type: BLOOD SPECIMENOrdering Facility: [facility] Address: [address] [place] [address] Performed By: #### 2 4323-8 ####[facility] [id number] [place] [address] [place] ALP [Catalytic activity/Vol] 70 U/L Normal 34-123 [facility] Comment on above: Order Comment: Speci men Type: BLOOD SPECIMENOrdering Facility: [facility] Address: [address] [place] [address] Performed By: #### 2 4323-8 ####[facility]ITALLIA [id number] [place] [address] [place] ALT [Catalytic activity/Vol] 5 U/L Low 7-38 [facility] Comment on above: Order Comment: Speci men Type: BLOOD SPECIMENOrdering Facility: [facility] Address: [address] [place] [address] Performed By: #### 2 4323-8 ####[facility] EMERGENCYNCLIA [id number] [place] [address] [place] Anion gap [Moles/Vol] 8 mmol/L Normal 8-15 [facility] Comment on above: Order Comment: Speci men Type: BLOOD SPECIMENOrdering Facility: [facility] Address: [address] [place] [address] Performed By: #### 2 4323-8 ####[facility] LUCIONCSANDRA [id number] [place] [address] [place] AST [Catalytic activity/Vol] 10 U/L Low 13-35 [facility] Comment on above: Order Comment: Speci men Type: BLOOD SPECIMENOrdering Facility: [facility] Address: [address] [place] [address] Performed By: #### 2 4323-8 ####[facility] KANDISWNCSANDRA [id number] [place] [address] [place] Bilirubin [Mass/Vol] 0.3 mg/dL Normal 0.2-1.3 [facility] Comment on above: Order Comment: Speci men Type: BLOOD SPECIMENOrdering Facility: [facility] Address: [address] [place] [address] Performed By: #### 2 4323-8 ####[facility] EMERGENCYNCLIA [id number] [place] [address] [place] Calcium [Mass/Vol] 10.2 mg/dL Normal 8.5-10.2 [facility] Comment on above: Order Comment: Speci men Type: BLOOD SPECIMENOrdering Facility: [facility] Address: [address] [place] [address] Performed By: #### 2 4323-8 ####[facility] SOUTHWNCLIA [id number] [place] [address] [place] Chloride [Moles/Vol] 105 mmol/L Normal 98-107 [facility] Comment on above: Order Comment: Speci men Type: BLOOD SPECIMENOrdering Facility: [facility] Address: [address] [place] [address] Performed By: #### 2 4323-8 ####[facility] SHANDRAWNCLIA [id number] [place] [address] [place] CO2 [Moles/Vol] 27 mmol/L Normal 22-30 [facility] Comment on above: Order Comment: Speci men Type: BLOOD SPECIMENOrdering Facility: [facility] Address: [address] [place] [address] Performed By: #### 2 4323-8 ####[facility] EMERGENCYNCLIA [id number] [place] [address] [place] Creatinine [Mass/Vol] 0.73 mg/dL Normal 0.58-0.96 [facility] Comment on above: Order Comment: Speci men Type: BLOOD SPECIMENOrdering Facility: [facility] Address: [address] [place] [address] Performed By: #### 2 4323-8 ####[facility]ERGENCYNCDAVIS [facility] [id number] [place] [address] [place] Creatinine and Glomerular filtration rate.predicted panel (S/P/Bld) 84 mL/min/1.73m??? Normal >=60 [facility] Comment on above: Order Comment: Speci men Type: BLOOD SPECIMENOrdering Facility: [facility] Address: [address] [place] [address] Result Comment: Rosana mated Glomerular Filtration Rate [...] actual GFR. Performed By: #### 2 4323-8 ####[facility] SOUTHWNCLIA [id number] [place] [address] [place] Glucose [Mass/Vol] 127 mg/dL High 74-99 [facility] Comment on above: Order Comment: Speci men Type: BLOOD SPECIMENOrdering Facility: [facility] Address: [address] [place], [place] [id number] Result Comment: The [place] Diabetes Association (ADA) provides guidance for cutoff [...] Standards of Medical Care in Diabetes 2016, [place] Diabetes [employer]. Diabetes Care. 2016.39(Suppl 1). Performed By: #### 2 4323-8 ####[facility] [id number] [place] [address] [place] Potassium [Moles/Vol] 4.1 mmol/L Normal 3.7-5.1 [facility] Comment on above: Order Comment: Antwan men Type: BLOOD SPECIMENOrdering Facility: [facility] Address: [address] [place] [address] Performed By: #### 2 4323-8 ####[facility] EMERGENCYNCLIA [id number] [place] [address] [place] Protein [Mass/Vol] 6.5 g/dL Normal 6.3-8.0 [facility] Comment on above: Order Comment: Antwan men Type: BLOOD SPECIMENOrdering Facility: [facility] Address: [address] [place] [address] Performed By: #### 2 4323-8 ####[facility] EMERGENCYNCLIA [id number] [place] [address] [place] Sodium [Moles/Vol] 140 mmol/L Normal 136-144 [facility] Comment on above: Order Comment: Speci men Type: BLOOD SPECIMENOrdering Facility: [facility] Address: [address] [place] [address] Performed By: #### 2 4323-8 ####[facility] LUCIONCLENINA [id number] [place] [address] [place] Urea nitrogen [Mass/Vol] 20 mg/dL Normal 7-21 [facility] Comment on above: Order Comment: Speci men Type: BLOOD SPECIMENOrdering Facility: [facility] Address: [address] [place] [address] Performed By: #### 2 4323-8 ####[facility] EMERGENCYNCLENINA [id number] [place] [address] [place] CT ABD/PEL W IVCONon 025 CT ABD/PEL W IVCON Normal [facility] CT CHEST W IVCONon CT CHEST W IVCON Normal [facility] CBC W Auto Differential pane l (Bld)on 06-22-2024 Basophils (Bld) [#/Vol] 10*3/uL Normal <0.11 [facility] Comment on above: Order Comment: Speci men Type: BLOOD SPECIMENOrdering Facility: [facility] Address: [address] [place] [address] Performed By: #### 5 7021-8 ####[facility] SHANDRAESTHERVILLENCLIA [id number] [place] [address] [place] Basophils/100 WBC (Bld) 0.4 % Normal [facility] Comment on above: Order Comment: Speci men Type: BLOOD SPECIMENOrdering Facility: [facility] Address: [address] [place] [address] Performed By: #### 5 7021-8 ####[facility] SOUTHWNCLIA [id number] [place] [address] [place] Differential cell count method Nom (Bld) Auto Normal [facility] Comment on above: Order Comment: Speci men Type: BLOOD SPECIMENOrdering Facility: [facility] Address: [address] [place] [address] Performed By: #### 5 7021-8 ####[facility] EMERGENCYNCLIA [id number] [place] [address] [place] Eosinophils (Bld) [#/Vol] 0.17 10*3/uL Normal <0.46 [facility] Comment on above: Order Comment: Speci men Type: BLOOD SPECIMENOrdering Facility: [facility] Address: [address] [place] [address] Performed By: #### 5 7021-8 ####[facility] [id number] [place] [address] [place] Eosinophils/100 WBC (Bld) 3.3 % Normal [facility] Comment on above: Order Comment: Speci men Type: BLOOD SPECIMENOrdering Facility: [facility] Address: [address] [place] [address] Performed By: #### 5 7021-8 ####[facility] [id number] [place] [address] [place] Erythrocyte distribution width (RBC) [Ratio] 16.7 % High 11.5-15.0 [facility] Comment on above: Order Comment: Speci men Type: BLOOD SPECIMENOrdering Facility: [facility] Address: [address] [place] [address] Performed By: #### 5 7021-8 ####[facility] [id number] [place] [address] [place] Hematocrit (Bld) [Volume fraction] 36.1 % Normal 36.0-46.0 [facility] Comment on above: Order Comment: Speci men Type: BLOOD SPECIMENOrdering Facility: [facility] Address: [address] [place] [address] Performed By: #### 5 7021-8 ####[facility] SOUTHWNCLIA [id number] [place] [address] [place] Hemoglobin (Bld) [Mass/Vol] 11.8 g/dL Normal 11.5-15.5 [facility] Comment on above: Order Comment: Speci men Type: BLOOD SPECIMENOrdering Facility: [facility] Address: [address] [place] [address] Performed By: #### 5 7021-8 ####[facility] EMERGENCYNCLIA [id number] [place] [address] [place] Immature granulocytes (Bld) [#/Vol] 10*3/uL Normal <0.10 [facility] Comment on above: Order Comment: Speci men Type: BLOOD SPECIMENOrdering Facility: [facility] Address: [address] [place] [address] Performed By: #### 5 7021-8 ####[facility] HOSPITALLIA [id number] [place] [address] [place] Immature granulocytes/100 WBC (Bld) 0.2 % Normal [facility] Comment on above: Order Comment: Speci men Type: BLOOD SPECIMENOrdering Facility: [facility] Address: [address] [place] [address] Performed By: #### 5 7021-8 ####[facility] HOSPITALLIA [id number] [place] [address] [place] Lymphocytes (Bld) [#/Vol] 2.02 10*3/uL Normal 1.00-4.00 [facility] Comment on above: Order Comment: Speci men Type: BLOOD SPECIMENOrdering Facility: [facility] Address: [address] [place] [address] Performed By: #### 5 7021-8 ####[facility] EMERGENCYNCLIA [id number] [place] [address] [place] Lymphocytes/100 WBC (Bld) 38.9 % Normal [facility] Comment on above: Order Comment: Speci men Type: BLOOD SPECIMENOrdering Facility: [facility] Address: [address] [place] [address] Performed By: #### 5 7021-8 ####[facility] EMERGENCYPERCY [id number] [place] [address] [place] MCH (RBC) [Entitic mass] 34.6 pg High 26.0-34.0 [facility] Comment on above: Order Comment: Speci men Type: BLOOD SPECIMENOrdering Facility: [facility] Address: [address] [place] [address] Performed By: #### 5 7021-8 ####[facility] EMERGENCYANA MSofei [id number] [place] [address] [place] MCHC (RBC) [Mass/Vol] 32.7 g/dL Normal 30.5-36.0 [facility] Comment on above: Order Comment: Speci men Type: BLOOD SPECIMENOrdering Facility: [facility] Address: [address] [place] [address] Performed By: #### 5 7021-8 ####[facility] HOSPITALLENIN [id number] [place] [address] [place] MCV (RBC) [Entitic vol] 105.9 fL High 80.0-100.0 [facility] Comment on above: Order Comment: Speci men Type: BLOOD SPECIMENOrdering Facility: [facility] Address: [address] [place] [address] Performed By: #### 5 7021-8 ####[facility] EMERGENCYNCLI [id number] [place] [address] [place] Monocytes (Bld) [#/Vol] 0.54 10*3/uL Normal <0.87 [facility] Comment on above: Order Comment: Speci men Type: BLOOD SPECIMENOrdering Facility: [facility] Address: [address] [place] [address] Performed By: #### 5 7021-8 ####[facility] HOSPITALLIA [id number] [place] [address] [place] Monocytes/100 WBC (Bld) 10.4 % Normal [facility] Comment on above: Order Comment: Speci men Type: BLOOD SPECIMENOrdering Facility: [facility] Address: [address] [place] [address] Performed By: #### 5 7021-8 ####[facility] [id number] [place] [address] [place] Neutrophils (Bld) [#/Vol] 2.43 10*3/uL Normal 1.45-7.50 [facility] Comment on above: Order Comment: Speci men Type: BLOOD SPECIMENOrdering Facility: [facility] Address: [address] [place] [address] Performed By: #### 5 7021-8 ####[facility] [id number] [place] [address] [place] Neutrophils/100 WBC (Bld) 46.8 % Normal [facility] Comment on above: Order Comment: Speci men Type: BLOOD SPECIMENOrdering Facility: [facility] Address: [address] [place] [address] Performed By: #### 5 7021-8 ####[facility]PITALLIA [id number] [place] [address] [place] Nucleated RBC (Bld) [#/Vol] 10*3/uL Normal <0.01 [facility] Comment on above: Order Comment: Speci men Type: BLOOD SPECIMENOrdering Facility: [facility] Address: [address] [place] [address] Performed By: #### 5 7021-8 ####[facility] SHANDRAWNCLIA [id number] [place] [address] [place] Nucleated RBC/100 WBC (Bld) [Ratio] 0.0 /100 WBC Normal [facility] Comment on above: Order Comment: Speci men Type: BLOOD SPECIMENOrdering Facility: [facility] Address: [address] [place] [address] Performed By: #### 5 7021-8 ####[facility]ERGENCYANA MLIA [id number] [place] [address] [place] Platelet mean volume (Bld) [Entitic vol] 9.1 fL Normal 9.0-12.7 [facility] Comment on above: Order Comment: Speci men Type: BLOOD SPECIMENOrdering Facility: [facility] Address: [address] [place] [address] Performed By: #### 5 7021-8 ####[facility] [id number] [place] [address] [place] Platelets (Bld) [#/Vol] 227 10*3/uL Normal 150-400 [facility] Comment on above: Order Comment: Speci men Type: BLOOD SPECIMENOrdering Facility: [facility] Address: [address] [place] [address] Performed By: #### 5 7021-8 ####[facility]PITALLIA [id number] [place] [address] [place] RBC (Bld) [#/Vol] 3.41 10*6/uL Low 3.90-5.20 [facility] Comment on above: Order Comment: Speci men Type: BLOOD SPECIMENOrdering Facility: [facility] Address: [address] [place] [address] Performed By: #### 5 7021-8 ####[facility] [id number] [place] [id number] [place] WBC (Bld) [#/Vol] 5.19 10*3/uL Normal 3.70-11.00 [facility] Comment on above: Order Comment: Speci men Type: BLOOD SPECIMENOrdering Facility: [facility] Address: [address] [place] [address] Performed By: #### 5 7021-8 ####[facility] [id number] [place] [address] [place] CNOVSPon 06-22-2024 CNOVSP Normal [facility] Cancer Ag125 SerPl-aCncon Cancer Ag 125 Qn 14 [arb'U]/mL Normal <39 [facility] Comment on above: Order Comment: Speci men Type: BLOOD SPECIMENOrdering Facility: [facility] Address: [address] [place] [address] Result Comment: CA 1 25 test methodology [...] (CA 125 II) [package insert V 1.0 Faroese]. [facility], [place], [place] (December 2014) Performed By: #### 1 0334-1 ####[facility] LABCLIA [id number] [place] [address] [place] Comprehensive metabolic 2000 panelon 06-22-2024 Albumin [Mass/Vol] 4.2 g/dL Normal 3.9-4.9 [facility] Comment on above: Order Comment: Speci men Type: BLOOD SPECIMENOrdering Facility: [facility] Address: [address] [place] [address] Performed By: #### 2 4323-8 ####[facility] [id number] [place] [address] [place] ALP [Catalytic activity/Vol] 80 U/L Normal 34-123 [facility] Comment on above: Order Comment: Speci men Type: BLOOD SPECIMENOrdering Facility: [facility] Address: [address] [place] [address] Performed By: #### 2 4323-8 ####[facility] SOUTHWMNLIA [id number] [place] [address] [place] ALT [Catalytic activity/Vol] 6 U/L Low 7-38 [facility] Comment on above: Order Comment: Speci men Type: BLOOD SPECIMENOrdering Facility: [facility] Address: [address] [place] [address] Performed By: #### 2 4323-8 ####[facility] EMERGENCYNCLIA [id number] [place] [address] [place] Anion gap [Moles/Vol] 11 mmol/L Normal 8-15 [facility] Comment on above: Order Comment: Speci men Type: BLOOD SPECIMENOrdering Facility: [facility] Address: [address] [place] [address] Performed By: #### 2 4323-8 ####[facility]PITALLIA [id number] [place] [address] [place] AST [Catalytic activity/Vol] 12 U/L Low 13-35 [facility] Comment on above: Order Comment: Speci men Type: BLOOD SPECIMENOrdering Facility: [facility] Address: [address] [place] [address] Performed By: #### 2 4323-8 ####[facility] EMERGENCYNCLIA [id number] [place] [address] [place] Bilirubin [Mass/Vol] 0.5 mg/dL Normal 0.2-1.3 [facility] Comment on above: Order Comment: Speci men Type: BLOOD SPECIMENOrdering Facility: [facility] Address: [address] [place] [address] Performed By: #### 2 4323-8 ####[facility] LUCIONCLENINA [id number] [place] [address] [place] Calcium [Mass/Vol] 10.0 mg/dL Normal 8.5-10.2 [facility] Comment on above: Order Comment: Speci men Type: BLOOD SPECIMENOrdering Facility: [facility] Address: [address] [place] [address] Performed By: #### 2 4323-8 ####[facility] EMERGENCYNCLENINA [id number] [place] [address] [place] Chloride [Moles/Vol] 106 mmol/L Normal 98-107 [facility] Comment on above: Order Comment: Speci men Type: BLOOD SPECIMENOrdering Facility: [facility] Address: [address] [place] [address] Performed By: #### 2 4323-8 ####[facility] EMERGENCYNCLIA [id number] [place] [address] [place] CO2 [Moles/Vol] 24 mmol/L Normal 22-30 [facility] Comment on above: Order Comment: Speci men Type: BLOOD SPECIMENOrdering Facility: [facility] Address: [address] [place] [address] Performed By: #### 2 4323-8 ####[facility] EMERGENCYNCLIA [id number] [place] [address] [place] Creatinine [Mass/Vol] 0.76 mg/dL Normal 0.58-0.96 [facility] Comment on above: Order Comment: Speci men Type: BLOOD SPECIMENOrdering Facility: [facility] Address: [address] [place] [address] Performed By: #### 2 4323-8 ####[facility] EMERGENCYNCDAVIS [facility] [id number] [place] [address] [place] Creatinine and Glomerular filtration rate.predicted panel (S/P/Bld) 80 mL/min/1.73m??? Normal >=60 [facility] Comment on above: Order Comment: Antwan rowland Type: BLOOD SPECIMENOrdering Facility: [facility] Address: [address] [place] [address] Result Comment: Rosana mated Glomerular Filtration Rate [...] actual GFR. Performed By: #### 2 4323-8 ####[facility] [id number] [place] [address] [place] Glucose [Mass/Vol] 107 mg/dL High 74-99 [facility] Comment on above: Order Comment: Antwan rowland Type: BLOOD SPECIMENOrdering Facility: [facility] Address: [address] [place] [address] Result Comment: The [place] Diabetes [employer] (ADA) provides guidance for cutoff [...] Standards of Medical Care in Diabetes 2016, [place] Diabetes Association. Diabetes Care. 2016.39(Suppl 1). Performed By: #### 2 4323-8 ####[facility] [id number] [place] [address] [place] Potassium [Moles/Vol] 4.0 mmol/L Normal 3.7-5.1 [facility] Comment on above: Order Comment: Speci men Type: BLOOD SPECIMENOrdering Facility: [facility] Address: [address] [place] [address] Performed By: #### 2 4323-8 ####[facility] MILLTOWNCLIA [id number] [place] [address] [place] Protein [Mass/Vol] 7.0 g/dL Normal 6.3-8.0 [facility] Comment on above: Order Comment: Speci men Type: BLOOD SPECIMENOrdering Facility: [facility] Address: [address] [place] [address] Performed By: #### 2 4323-8 ####[facility] MILLWANA MLIA [id number] [place] [address] [place] Sodium [Moles/Vol] 141 mmol/L Normal 136-144 [facility] Comment on above: Order Comment: Speci men Type: BLOOD SPECIMENOrdering Facility: [facility] Address: [address] [place] [address] Performed By: #### 2 4323-8 ####[facility] MILLWNCLIA [id number] [place] [address] [place] Urea nitrogen [Mass/Vol] 19 mg/dL Normal 7-21 [facility] Comment on above: Order Comment: Speci men Type: BLOOD SPECIMENOrdering Facility: [facility] Address: [address] [place] [address] Performed By: #### 2 4323-8 ####[facility] MILLTOWNCLIA [id number] [place] [address] [place] MRI FEMALE PELVIS WO/W IVCON on 06-14-2024 MRI FEMALE PELVIS WO/W IVCON Normal [facility] CNOVon 06-08-2024 CNOV Normal [facility] CBC W Auto Differential pane l (Bld)on 06-04-2024 Basophils (Bld) [#/Vol] 10*3/uL Normal <0.11 [facility] Comment on above: Order Comment: Speci men Type: BLOOD SPECIMENOrdering Facility: [facility] Address: [address] [place] [address] Performed By: #### 5 7021-8 ####[facility] MILLWMNLIA [id number] [place] [address] [place] Basophils/100 WBC (Bld) 0.4 % Normal [facility] Comment on above: Order Comment: Speci men Type: BLOOD SPECIMENOrdering Facility: [facility] Address: [address] [place] [address] Performed By: #### 5 7021-8 ####[facility] [id number] [place] [address] [place] Differential cell count method Nom (Bld) Auto Normal [facility] Comment on above: Order Comment: Speci men Type: BLOOD SPECIMENOrdering Facility: [facility] Address: [address] [place] [address] Performed By: #### 5 7021-8 ####[facility] [id number] [place] [address] [place] Eosinophils (Bld) [#/Vol] 0.14 10*3/uL Normal <0.46 [facility] Comment on above: Order Comment: Speci men Type: BLOOD SPECIMENOrdering Facility: [facility] Address: [address] [place] [address] Performed By: #### 5 7021-8 ####[facility] [id number] [place] [address] [place] Eosinophils/100 WBC (Bld) 2.5 % Normal [facility] Comment on above: Order Comment: Speci men Type: BLOOD SPECIMENOrdering Facility: [facility] Address: [address] [place] [address] Performed By: #### 5 7021-8 ####[facility] LUCIONCLENINA [id number] [place] [address] [place] Erythrocyte distribution width (RBC) [Ratio] 17.3 % High 11.5-15.0 [facility] Comment on above: Order Comment: Speci men Type: BLOOD SPECIMENOrdering Facility: [facility] Address: [address] [place] [address] Performed By: #### 5 7021-8 ####[facility] EMERGENCYNCLIA [id number] [place] [address] [place] Hematocrit (Bld) [Volume fraction] 34.3 % Low 36.0-46.0 [facility] Comment on above: Order Comment: Speci men Type: BLOOD SPECIMENOrdering Facility: [facility] Address: [address] [place] [address] Performed By: #### 5 7021-8 ####[facility] EMERGENCYNCLIA [id number] [place] [address] [place] Hemoglobin (Bld) [Mass/Vol] 11.4 g/dL Low 11.5-15.5 [facility] Comment on above: Order Comment: Speci men Type: BLOOD SPECIMENOrdering Facility: [facility] Address: [address] [place] [address] Performed By: #### 5 7021-8 ####[facility] EMERGENCYNCLIA [id number] [place] [address] [place] Immature granulocytes (Bld) [#/Vol] 10*3/uL Normal <0.10 [facility] Comment on above: Order Comment: Speci men Type: BLOOD SPECIMENOrdering Facility: [facility] Address: [address] [place] [address] Performed By: #### 5 7021-8 ####[facility] SHANDRAESTHERVILLEANA MLIA [id number] [address] [place] [facility] Immature granulocytes/100 WBC (Bld) 0.4 % Normal [facility] Comment on above: Order Comment: Speci men Type: BLOOD SPECIMENOrdering Facility: [facility] Address: [address] [place] [address] Performed By: #### 5 7021-8 ####[facility] [id number] [place] [address] [place] Lymphocytes (Bld) [#/Vol] 2.08 10*3/uL Normal 1.00-4.00 [facility] Comment on above: Order Comment: Speci men Type: BLOOD SPECIMENOrdering Facility: [facility] Address: [address] [place] [address] Performed By: #### 5 7021-8 ####[facility] [id number] [place] [address] [place] Lymphocytes/100 WBC (Bld) 36.6 % Normal [facility] Comment on above: Order Comment: Speci men Type: BLOOD SPECIMENOrdering Facility: [facility] Address: [address] [place] [address] Performed By: #### 5 7021-8 ####[facility] [id number] [place] [address] [place] MCH (RBC) [Entitic mass] 34.9 pg High 26.0-34.0 [facility] Comment on above: Order Comment: Speci men Type: BLOOD SPECIMENOrdering Facility: [facility] Address: [address] [place] [address] Performed By: #### 5 7021-8 ####[facility] [id number] [place] [address] [place] MCHC (RBC) [Mass/Vol] 33.2 g/dL Normal 30.5-36.0 [facility] Comment on above: Order Comment: Speci men Type: BLOOD SPECIMENOrdering Facility: [facility] Address: [address] [place] [address] Performed By: #### 5 7021-8 ####[facility] SHANDRAMichaelNCLENINA [id number] [place] [address] [place] MCV (RBC) [Entitic vol] 104.9 fL High 80.0-100.0 [facility] Comment on above: Order Comment: Speci men Type: BLOOD SPECIMENOrdering Facility: [facility] Address: [address] [place] [address] Performed By: #### 5 7021-8 ####[facility] EMERGENCYNCLENINA [id number] [place] [address] [place] Monocytes (Bld) [#/Vol] 0.61 10*3/uL Normal <0.87 [facility] Comment on above: Order Comment: Speci men Type: BLOOD SPECIMENOrdering Facility: [facility] Address: [address] [place] [address] Performed By: #### 5 7021-8 ####[facility] EMERGENCYNCLIA [id number] [place] [address] [place] Monocytes/100 WBC (Bld) 10.7 % Normal [facility] Comment on above: Order Comment: Speci men Type: BLOOD SPECIMENOrdering Facility: [facility] Address: [address] [place] [address] Performed By: #### 5 7021-8 ####[facility] EMERGENCYNCLIA [id number] [place] [address] [place] Neutrophils (Bld) [#/Vol] 2.82 10*3/uL Normal 1.45-7.50 [facility] Comment on above: Order Comment: Speci men Type: BLOOD SPECIMENOrdering Facility: [facility] Address: [address] [place] [address] Performed By: #### 5 7021-8 ####[facility] SHANDRANATHANLIA [id number] [place] [address] [place] Neutrophils/100 WBC (Bld) 49.4 % Normal [facility] Comment on above: Order Comment: Speci men Type: BLOOD SPECIMENOrdering Facility: [facility] Address: [address] [place] [address] Performed By: #### 5 7021-8 ####[facility] [id number] [place] [address] [place] Nucleated RBC (Bld) [#/Vol] 10*3/uL Normal <0.01 [facility] Comment on above: Order Comment: Speci men Type: BLOOD SPECIMENOrdering Facility: [facility] Address: [address] [place] [address] Performed By: #### 5 7021-8 ####[facility] [id number] [place] [address] [place] Nucleated RBC/100 WBC (Bld) [Ratio] 0.0 /100 WBC Normal [facility] Comment on above: Order Comment: Speci men Type: BLOOD SPECIMENOrdering Facility: [facility] Address: [address] [place] [address] Performed By: #### 5 7021-8 ####[facility] [id number] [place] [address] [place] Platelet mean volume (Bld) [Entitic vol] 9.3 fL Normal 9.0-12.7 [facility] Comment on above: Order Comment: Speci men Type: BLOOD SPECIMENOrdering Facility: [facility] Address: [address] [place] [address] Performed By: #### 5 7021-8 ####[facility] SHANDRAESTHERVILLENCLIA [id number] [place] [address] [place] Platelets (Bld) [#/Vol] 243 10*3/uL Normal 150-400 [facility] Comment on above: Order Comment: Speci men Type: BLOOD SPECIMENOrdering Facility: [facility] Address: [address] [place], [place] [address] Performed By: #### 5 7021-8 ####[facility] EMERGENCYNCLIA [id number] [place] [address] [place] RBC (Bld) [#/Vol] 3.27 10*6/uL Low 3.90-5.20 [facility] Comment on above: Order Comment: Speci men Type: BLOOD SPECIMENOrdering Facility: [facility] Address: [address] [place] [address] Performed By: #### 5 7021-8 ####[facility] EMERGENCYNCLIA [id number] [place] [address] [place] WBC (Bld) [#/Vol] 5.69 10*3/uL Normal 3.70-11.00 [facility] Comment on above: Order Comment: Speci men Type: BLOOD SPECIMENOrdering Facility: [facility] Address: [address] [place], [place] [address] Performed By: #### 5 7021-8 ####[facility] [id number] [place] [address] [place] CNOVSPon 06-04-2024 CNOVSP Normal [facility] Comprehensive metabolic 2000 panelon 06-04-2024 Albumin [Mass/Vol] 4.3 g/dL Normal 3.9-4.9 [facility] Comment on above: Order Comment: Speci men Type: BLOOD SPECIMENOrdering Facility: [facility] Address: [address] [place], [place] [address] Performed By: #### 2 4323-8 ####[facility] MILLTOWNCLIA [id number] [place] [address] [place] ALP [Catalytic activity/Vol] 80 U/L Normal 34-123 [facility] Comment on above: Order Comment: Speci men Type: BLOOD SPECIMENOrdering Facility: [facility] Address: [address] [place] [address] Performed By: #### 2 4323-8 ####[facility] MILLTOWNCLIA [id number] [place] [address] [place] ALT [Catalytic activity/Vol] 5 U/L Low 7-38 [facility] Comment on above: Order Comment: Speci men Type: BLOOD SPECIMENOrdering Facility: [facility] Address: [address] [place] [address] Performed By: #### 2 4323-8 ####[facility]THWNCLIA [id number] [place] [address] [place] Anion gap [Moles/Vol] 8 mmol/L Normal 8-15 [facility] Comment on above: Order Comment: Speci men Type: BLOOD SPECIMENOrdering Facility: [facility] Address: [address] [place] [address] Performed By: #### 2 4323-8 ####[facility] MILLWNCLIA [id number] [place] [address] [place] AST [Catalytic activity/Vol] 13 U/L Normal 13-35 [facility] Comment on above: Order Comment: Speci men Type: BLOOD SPECIMENOrdering Facility: [facility] Address: [address] [place] [address] Performed By: #### 2 4323-8 ####[facility] SOUTHWNCLIA [id number] [place] [address] [place] Bilirubin [Mass/Vol] 0.4 mg/dL Normal 0.2-1.3 [facility] Comment on above: Order Comment: Speci men Type: BLOOD SPECIMENOrdering Facility: [facility] Address: [address] [place] [address] Performed By: #### 2 4323-8 ####[facility] SOUTHWNCLIA [id number] [place] [address] [place] Calcium [Mass/Vol] 10.1 mg/dL Normal 8.5-10.2 [facility] Comment on above: Order Comment: Speci men Type: BLOOD SPECIMENOrdering Facility: [facility] Address: [address] [place] [address] Performed By: #### 2 4323-8 ####[facility]IT[facility] [id number] [place] [address] [place] Chloride [Moles/Vol] 105 mmol/L Normal 98-107 [facility] Comment on above: Order Comment: Speci men Type: BLOOD SPECIMENOrdering Facility: [facility] Address: [address] [place] [address] Performed By: #### 2 4323-8 ####[facility] [id number] [place] [address] [place] CO2 [Moles/Vol] 26 mmol/L Normal 22-30 [facility] Comment on above: Order Comment: Speci men Type: BLOOD SPECIMENOrdering Facility: [facility] Address: [address] [place], [place] [address] Performed By: #### 2 4323-8 ####[facility] [id number] [place] [address] [place] Creatinine [Mass/Vol] 0.75 mg/dL Normal 0.58-0.96 [facility] Comment on above: Order Comment: Speci men Type: BLOOD SPECIMENOrdering Facility: [facility] Address: [address] [place] [address] Performed By: #### 2 4323-8 ####[facility] [id number] [place] [address] [place] Creatinine and Glomerular filtration rate.predicted panel (S/P/Bld) 81 mL/min/1.73m??? Normal >=60 [facility] Comment on above: Order Comment: Antwan rowland Type: BLOOD SPECIMENOrdering Facility: [facility] Address: [address] [place] [address] Result Comment: Rosana mated Glomerular Filtration Rate [...] actual GFR. Performed By: #### 2 4323-8 ####[facility] [id number] [place] [address] [place] Glucose [Mass/Vol] 100 mg/dL High 74-99 [facility] Comment on above: Order Comment: Antwan rowland Type: BLOOD SPECIMENOrdering Facility: [facility] Address: [address] [place] [address] Result Comment: The [place] Diabetes Association (ADA) provides guidance for cutoff [...] Standards of Medical Care in Diabetes 2016, [place] Diabetes Association. Diabetes Care. 2016.39(Suppl 1). Performed By: #### 2 4323-8 ####[facility] BRIDGET MILLTOWNCLIA [id number] [place] [address] [place] Potassium [Moles/Vol] 4.4 mmol/L Normal 3.7-5.1 [facility] Comment on above: Order Comment: Speci men Type: BLOOD SPECIMENOrdering Facility: [facility] Address: [address] [place] [address] Performed By: #### 2 4323-8 ####[facility] MILLTOWNCLIA [id number] [place] [address] [place] Protein [Mass/Vol] 7.0 g/dL Normal 6.3-8.0 [facility] Comment on above: Order Comment: Speci men Type: BLOOD SPECIMENOrdering Facility: [facility] Address: [address] [place] [address] Performed By: #### 2 4323-8 ####[facility] S[facility]THWNCLIA [id number] [place] [address] [place] Sodium [Moles/Vol] 139 mmol/L Normal 136-144 [facility] Comment on above: Order Comment: Speci men Type: BLOOD SPECIMENOrdering Facility: [facility] Address: [address] [place] [address] Performed By: #### 2 4323-8 ####[facility] MILLTOWNCLIA [id number] [place] [address] [place] Urea nitrogen [Mass/Vol] 18 mg/dL Normal 7-21 [facility] Comment on above: Order Comment: Speci men Type: BLOOD SPECIMENOrdering Facility: [facility] Address: [address] [place] [address] Performed By: #### 2 4323-8 ####[facility] MILLTOWNCLIA [id number] [place] [address] [place] Bone density reportOrdered B y: Martin James on 06-02-2024 Study report Skeletal system DXA [facility] [address] [place] [address] Dexa Bone Density Study MR#: [id number] Acct: [id number] Name: MARIE BLAIR Rep #: [id number] : 1945 F 79 From: Larry James MD PCP: Dr. Joe Tim MD Status: REG CL I Study:Dexa Bone Density Study Date of Exam: 06/02/24 Exam# [id number] Ordering Dr: Moni Tim MD PROCEDURE: DEXA BONE DENSITY STUDY REASON [...] with a low fracture risk. Reading Location: [facility] CC: Dr. Joe Tim MD ~ It Senior Analyst: Signed [facility] Dexa Bone Density Studyon Dexa Bone Density Study [facility] [address] [place] [place] [address] Dexa Bone Density Study MR#: [id number] Acct: [id number] Name: MARIE BLAIR Rep #: [id number] : 1945 F 79 From: Martin watters MD PCP: Dr. Joe Tim MD Status: REG CLI Study: Dexa Bone Density Study Date of Exam: 06/02/24 Exam# [id number] Ordering Dr: Joe Tim MD PROCEDURE: DEXA BONE DENSITY STUDY REASON [...] with a low fracture risk. Reading Location: [id number] CC: Dr. Joe Tim MD It Senior Analyst: Signed Normal [facility] CBC W Auto Differential pane l (Bld)on 05-14-2024 Basophils (Bld) [#/Vol] 10*3/uL Normal <0.11 [facility] Comment on above: Order Comment: Speci men Type: BLOOD SPECIMENOrdering Facility: [facility] Address: [address] [place] [address] Performed By: #### 5 7021-8 ####[facility] MILLWNCLIA [id number] [place] [address] [place] Basophils/100 WBC (Bld) 0.3 % Normal [facility] Comment on above: Order Comment: Speci men Type: BLOOD SPECIMENOrdering Facility: [facility] Address: [address] [place] [address] Performed By: #### 5 7021-8 ####[facility] [id number] [place] [address] [place] Differential cell count method Nom (Bld) Auto Normal [facility] Comment on above: Order Comment: Speci men Type: BLOOD SPECIMENOrdering Facility: [facility] Address: [address] [place] [address] Performed By: #### 5 7021-8 ####[facility] [id number] [place] [address] [place] Eosinophils (Bld) [#/Vol] 0.13 10*3/uL Normal <0.46 [facility] Comment on above: Order Comment: Speci men Type: BLOOD SPECIMENOrdering Facility: [facility] Address: [address] [place] [address] Performed By: #### 5 7021-8 ####[facility] [id number] [place] [address] [place] Eosinophils/100 WBC (Bld) 2.2 % Normal [facility] Comment on above: Order Comment: Speci men Type: BLOOD SPECIMENOrdering Facility: [facility] Address: [address] [place] [address] Performed By: #### 5 7021-8 ####[facility] [id number] [place] [address] [place] Erythrocyte distribution width (RBC) [Ratio] 19.4 % High 11.5-15.0 [facility] Comment on above: Order Comment: Speci men Type: BLOOD SPECIMENOrdering Facility: [facility] Address: [address] [place] [address] Performed By: #### 5 7021-8 ####[facility] [id number] [place] [address] [place] Hematocrit (Bld) [Volume fraction] 33.0 % Low 36.0-46.0 [facility] Comment on above: Order Comment: Speci men Type: BLOOD SPECIMENOrdering Facility: [facility] Address: [address] [place] [address] Performed By: #### 5 7021-8 ####[facility] [id number] [place] [address] [place] Hemoglobin (Bld) [Mass/Vol] 10.7 g/dL Low 11.5-15.5 [facility] Comment on above: Order Comment: Speci men Type: BLOOD SPECIMENOrdering Facility: [facility] Address: [address] [place] [address] Performed By: #### 5 7021-8 ####[facility] [id number] [place] [address] [place] Immature granulocytes (Bld) [#/Vol] 10*3/uL Normal <0.10 [facility] Comment on above: Order Comment: Speci men Type: BLOOD SPECIMENOrdering Facility: [facility] Address: [address] [place] [address] Performed By: #### 5 7021-8 ####[facility] [id number] [place] [address] [place] Immature granulocytes/100 WBC (Bld) 0.2 % Normal [facility] Comment on above: Order Comment: Speci men Type: BLOOD SPECIMENOrdering Facility: [facility] Address: [address] [place] [address] Performed By: #### 5 7021-8 ####[facility] SHANDRAWNCLIA [id number] [place] [address] [place] Lymphocytes (Bld) [#/Vol] 2.20 10*3/uL Normal 1.00-4.00 [facility] Comment on above: Order Comment: Speci men Type: BLOOD SPECIMENOrdering Facility: [facility] Address: [address] [place] [address] Performed By: #### 5 7021-8 ####[facility]ERGENCYANA MLIA [id number] [place] [address] [place] Lymphocytes/100 WBC (Bld) 37.7 % Normal [facility] Comment on above: Order Comment: Speci men Type: BLOOD SPECIMENOrdering Facility: [facility] Address: [address] [place] [address] Performed By: #### 5 7021-8 ####[facility] [id number] [place] [address] [place] MCH (RBC) [Entitic mass] 33.6 pg Normal 26.0-34.0 [facility] Comment on above: Order Comment: Speci men Type: BLOOD SPECIMENOrdering Facility: [facility] Address: [address] [place] [address] Performed By: #### 5 7021-8 ####[facility] MILLWNCLIA [id number] [place] [address] [place] MCHC (RBC) [Mass/Vol] 32.4 g/dL Normal 30.5-36.0 [facility] Comment on above: Order Comment: Speci men Type: BLOOD SPECIMENOrdering Facility: [facility] Address: [address] [place] [address] Performed By: #### 5 7021-8 ####[facility] [id number] [place] [address] [place] MCV (RBC) [Entitic vol] 103.8 fL High 80.0-100.0 [facility] Comment on above: Order Comment: Speci men Type: BLOOD SPECIMENOrdering Facility: [facility] Address: [address] [place] [address] Performed By: #### 5 7021-8 ####[facility] [id number] [place] [address] [place] Monocytes (Bld) [#/Vol] 0.61 10*3/uL Normal <0.87 [facility] Comment on above: Order Comment: Speci men Type: BLOOD SPECIMENOrdering Facility: [facility] Address: [address] [place] [address] Performed By: #### 5 7021-8 ####[facility] [id number] [place] [address] [place] Monocytes/100 WBC (Bld) 10.5 % Normal [facility] Comment on above: Order Comment: Speci men Type: BLOOD SPECIMENOrdering Facility: [facility] Address: [address] [place] [address] Performed By: #### 5 7021-8 ####[facility] [id number] [place] [address] [place] Neutrophils (Bld) [#/Vol] 2.86 10*3/uL Normal 1.45-7.50 [facility] Comment on above: Order Comment: Speci men Type: BLOOD SPECIMENOrdering Facility: [facility] Address: [address] [place] [address] Performed By: #### 5 7021-8 ####[facility] [id number] [place] [address] [place] Neutrophils/100 WBC (Bld) 49.1 % Normal [facility] Comment on above: Order Comment: Speci men Type: BLOOD SPECIMENOrdering Facility: [facility] Address: [address] [place] [address] Performed By: #### 5 7021-8 ####[facility] [id number] [place] [address] [place] Nucleated RBC (Bld) [#/Vol] 10*3/uL Normal <0.01 [facility] Comment on above: Order Comment: Speci men Type: BLOOD SPECIMENOrdering Facility: [facility] Address: [address] [place] [address] Performed By: #### 5 7021-8 ####[facility] [id number] [place] [address] [place] Nucleated RBC/100 WBC (Bld) [Ratio] 0.0 /100 WBC Normal [facility] Comment on above: Order Comment: Speci men Type: BLOOD SPECIMENOrdering Facility: [facility] Address: [address] [place] [address] Performed By: #### 5 7021-8 ####[facility] [id number] [place] [address] [place] Platelet mean volume (Bld) [Entitic vol] 9.2 fL Normal 9.0-12.7 [facility] Comment on above: Order Comment: Speci men Type: BLOOD SPECIMENOrdering Facility: [facility] Address: [address] [place] [address] Performed By: #### 5 7021-8 ####[facility] [id number] [place] [address] [place] Platelets (Bld) [#/Vol] 230 10*3/uL Normal 150-400 [facility] Comment on above: Order Comment: Speci men Type: BLOOD SPECIMENOrdering Facility: [facility] Address: [address] [place] [address] Performed By: #### 5 7021-8 ####[facility] SHANDRAMichaelNCLIA [id number] [place] [address] [place] RBC (Bld) [#/Vol] 3.18 10*6/uL Low 3.90-5.20 [facility] Comment on above: Order Comment: Speci men Type: BLOOD SPECIMENOrdering Facility: [facility] Address: [address] [place] [address] Performed By: #### 5 7021-8 ####[facility] SHANDRAMichaelNCLIA [id number] [place] [address] [place] WBC (Bld) [#/Vol] 5.83 10*3/uL Normal 3.70-11.00 [facility] Comment on above: Order Comment: Speci men Type: BLOOD SPECIMENOrdering Facility: [facility] Address: [address] [place] [address] Performed By: #### 5 7021-8 ####[facility] EMERGENCYNCLIA [id number] [place] [address] [place] CNOVSPon 05-14-2024 CNOVSP Normal [facility] Comprehensive metabolic 2000 panelon 05-14-2024 Albumin [Mass/Vol] 4.2 g/dL Normal 3.9-4.9 [facility] Comment on above: Order Comment: Speci men Type: BLOOD SPECIMENOrdering Facility: [facility] Address: [address] [place] [address] Performed By: #### 2 4323-8 ####[facility] EMERGENCYNCLIA [id number] [place] [address] [place] ALP [Catalytic activity/Vol] 83 U/L Normal 34-123 [facility] Comment on above: Order Comment: Speci men Type: BLOOD SPECIMENOrdering Facility: [facility] Address: [address] [place] [address] Performed By: #### 2 4323-8 ####[facility] MILLWNCLIA [id number] [place] [address] [place] ALT [Catalytic activity/Vol] U/L Low 7-38 [facility] Comment on above: Order Comment: Speci men Type: BLOOD SPECIMENOrdering Facility: [facility] Address: [address] [place] [address] Performed By: #### 2 4323-8 ####[facility] EMERGENCYNCLIA [id number] [place] [address] [place] Anion gap [Moles/Vol] 8 mmol/L Normal 8-15 [facility] Comment on above: Order Comment: Speci men Type: BLOOD SPECIMENOrdering Facility: [facility] Address: [address] [place] [address] Performed By: #### 2 4323-8 ####[facility] [id number] [place] [address] [place] AST [Catalytic activity/Vol] 11 U/L Low 13-35 [facility] Comment on above: Order Comment: Speci men Type: BLOOD SPECIMENOrdering Facility: [facility] Address: [address] [place] [address] Performed By: #### 2 4323-8 ####[facility] EMERGENCYNCLIA [id number] [place] [address] [place] Bilirubin [Mass/Vol] 0.4 mg/dL Normal 0.2-1.3 [facility] Comment on above: Order Comment: Speci men Type: BLOOD SPECIMENOrdering Facility: [facility] Address: [address] [place] [address] Performed By: #### 2 4323-8 ####[facility] EMERGENCYNCLIA [id number] [place] [address] [place] Calcium [Mass/Vol] 10.2 mg/dL Normal 8.5-10.2 [facility] Comment on above: Order Comment: Speci men Type: BLOOD SPECIMENOrdering Facility: [facility] Address: [address] [place] [address] Performed By: #### 2 4323-8 ####[facility] MILLWANA MLIA [id number] [place] [address] [place] Chloride [Moles/Vol] 108 mmol/L High 98-107 [facility] Comment on above: Order Comment: Speci men Type: BLOOD SPECIMENOrdering Facility: [facility] Address: [address] [place] [address] Performed By: #### 2 4323-8 ####[facility] [id number] [place] [address] [place] CO2 [Moles/Vol] 26 mmol/L Normal 22-30 [facility] Comment on above: Order Comment: Speci men Type: BLOOD SPECIMENOrdering Facility: [facility] Address: [address] [place] [address] Performed By: #### 2 4323-8 ####[facility] EMERGENCYNCLIA [id number] [place] [address] [place] Creatinine [Mass/Vol] 0.85 mg/dL Normal 0.58-0.96 [facility] Comment on above: Order Comment: Speci men Type: BLOOD SPECIMENOrdering Facility: [facility] Address: [address] [place] [address] Performed By: #### 2 4323-8 ####[facility] EMERGENCYNCLIA [id number] [place] [address] [place] Creatinine and Glomerular filtration rate.predicted panel (S/P/Bld) 70 mL/min/1.73m??? Normal >=60 [facility] Comment on above: Order Comment: Antwan rowland Type: BLOOD SPECIMENOrdering Facility: [facility] Address: [address] [place] [address] Result Comment: Rosana mated Glomerular Filtration Rate [...] actual GFR. Performed By: #### 2 4323-8 ####[facility] [id number] [place] [address] [place] Glucose [Mass/Vol] 83 mg/dL Normal 74-99 [facility] Comment on above: Order Comment: Antwan rowland Type: BLOOD SPECIMENOrdering Facility: [facility] Address: [address] [place] [address] Result Comment: The [place] Diabetes Association (ADA) provides guidance for cutoff [...] Standards of Medical Care in Diabetes 2016, [place] Diabetes [employer]. Diabetes Care. 2016.39(Suppl 1). Performed By: #### 2 4323-8 ####[facility] [id number] [place] [address] [place] Potassium [Moles/Vol] 3.9 mmol/L Normal 3.7-5.1 [facility] Comment on above: Order Comment: Antwan rowland Type: BLOOD SPECIMENOrdering Facility: [facility] Address: [address] [id number] Performed By: #### 2 4323-8 ####[facility] MILLTOWNCLIA [id number] [place] [address] [place] Protein [Mass/Vol] 6.9 g/dL Normal 6.3-8.0 [facility] Comment on above: Order Comment: Speci men Type: BLOOD SPECIMENOrdering Facility: [facility] Address: [address] [place] [address] Performed By: #### 2 4323-8 ####[facility] MILLWNCLIA [id number] [place] [address] [place] Sodium [Moles/Vol] 142 mmol/L Normal 136-144 [facility] Comment on above: Order Comment: Speci men Type: BLOOD SPECIMENOrdering Facility: [facility] Address: [address] [place] [address] Performed By: #### 2 4323-8 ####[facility] MILLWNCLIA [id number] [place] [address] [place] Urea nitrogen [Mass/Vol] 20 mg/dL Normal 7-21 [facility] Comment on above: Order Comment: Speci men Type: BLOOD SPECIMENOrdering Facility: [facility] Address: [address] [place] [address] Performed By: #### 2 4323-8 ####[facility]ITALLIA [id number] [place] [address] [place] CNPNon 04-26-2024 CNPN Normal [facility] FEMALE PELVIS TRANSABD LT Don 04-26-2024 [place] FEMALE PELVIS TRANSABD LTD Normal [facility] FEMALE PELVIS TRANSVAGon 04-26-2024 FEMALE PELVIS TRANSVAG Normal [facility] CBC W Auto Differential pane l (Bld)on 2024 Basophils (Bld) [#/Vol] 0.03 10*3/uL Normal <0.11 [facility] Comment on above: Order Comment: Speci men Type: BLOOD SPECIMENOrdering Facility: [facility] Address: [address] [place] [address] Performed By: #### 5 7021-8 ####[facility] EMERGENCYNCLIA [id number] [place] [address] [place] Basophils/100 WBC (Bld) 0.4 % Normal [facility] Comment on above: Order Comment: Speci men Type: BLOOD SPECIMENOrdering Facility: [facility] Address: [address] [place] [address] Performed By: #### 5 7021-8 ####[facility] [id number] [place] [address] [place] Differential cell count method Nom (Bld) Auto Normal [facility] Comment on above: Order Comment: Speci men Type: BLOOD SPECIMENOrdering Facility: [facility] Address: [address] [place] [address] Performed By: #### 5 7021-8 ####[facility] [id number] [place] [address] [place] Eosinophils (Bld) [#/Vol] 0.13 10*3/uL Normal <0.46 [facility] Comment on above: Order Comment: Speci men Type: BLOOD SPECIMENOrdering Facility: [facility] Address: [address] [place] [address] Performed By: #### 5 7021-8 ####[facility] EMERGENCYNCLIA [id number] [place] [address] [place] Eosinophils/100 WBC (Bld) 1.8 % Normal [facility] Comment on above: Order Comment: Speci men Type: BLOOD SPECIMENOrdering Facility: [facility] Address: [address] [place] [address] Performed By: #### 5 7021-8 ####[facility] SHANDRAHAIA [id number] [place] [address] [place] Erythrocyte distribution width (RBC) [Ratio] 21.1 % High 11.5-15.0 [facility] Comment on above: Order Comment: Speci men Type: BLOOD SPECIMENOrdering Facility: [facility] Address: [address] [place] [address] Performed By: #### 5 7021-8 ####[facility] EMERGENCYPERCY [id number] [place] [address] [place] Hematocrit (Bld) [Volume fraction] 31.8 % Low 36.0-46.0 [facility] Comment on above: Order Comment: Speci men Type: BLOOD SPECIMENOrdering Facility: [facility] Address: [address] [place] [address] Performed By: #### 5 7021-8 ####[facility] HOS[facility]ITALSofie [id number] [place] [address] [place] Hemoglobin (Bld) [Mass/Vol] 10.5 g/dL Low 11.5-15.5 [facility] Comment on above: Order Comment: Speci men Type: BLOOD SPECIMENOrdering Facility: [facility] Address: [address] [place] [address] Performed By: #### 5 7021-8 ####[facility]OSPITALSANDRA [id number] [place] [address] [place] Immature granulocytes (Bld) [#/Vol] 0.09 10*3/uL Normal <0.10 [facility] Comment on above: Order Comment: Speci men Type: BLOOD SPECIMENOrdering Facility: [facility] Address: [address] [place] [address] Performed By: #### 5 7021-8 ####[facility] EMERGENCYNCLIA [id number] [place] [address] [place] Immature granulocytes/100 WBC (Bld) 1.2 % Normal [facility] Comment on above: Order Comment: Speci men Type: BLOOD SPECIMENOrdering Facility: [facility] Address: [address] [place] [address] Performed By: #### 5 7021-8 ####[facility] EMERGENCYNCLIA [id number] [place] [address] [place] Lymphocytes (Bld) [#/Vol] 2.20 10*3/uL Normal 1.00-4.00 [facility] Comment on above: Order Comment: Speci men Type: BLOOD SPECIMENOrdering Facility: [facility] Address: [address] [place] [address] Performed By: #### 5 7021-8 ####[facility] [id number] [place] [address] [place] Lymphocytes/100 WBC (Bld) 30.3 % Normal [facility] Comment on above: Order Comment: Speci men Type: BLOOD SPECIMENOrdering Facility: [facility] Address: [address] [place] [address] Performed By: #### 5 7021-8 ####[facility] EMERGENCYNCLI [id number] [place] [address] [place] MCH (RBC) [Entitic mass] 33.2 pg Normal 26.0-34.0 [facility] Comment on above: Order Comment: Speci men Type: BLOOD SPECIMENOrdering Facility: [facility] Address: [address] [place] [address] Performed By: #### 5 7021-8 ####[facility] EMERGENCYNCLI [id number] [place] [address] [place] MCHC (RBC) [Mass/Vol] 33.0 g/dL Normal 30.5-36.0 [facility] Comment on above: Order Comment: Speci men Type: BLOOD SPECIMENOrdering Facility: [facility] Address: [address] [place] [address] Performed By: #### 5 7021-8 ####[facility] EMERGENCYPERCY [id number] [place] [address] [place] MCV (RBC) [Entitic vol] 100.6 fL High 80.0-100.0 [facility] Comment on above: Order Comment: Speci men Type: BLOOD SPECIMENOrdering Facility: [facility] Address: [address] [place] [address] Performed By: #### 5 7021-8 ####[facility] EMERGENCYNCDAVIS [facility] [id number] [place] [address] [place] Monocytes (Bld) [#/Vol] 0.90 10*3/uL High <0.87 [facility] Comment on above: Order Comment: Speci men Type: BLOOD SPECIMENOrdering Facility: [facility] Address: [address] [place] [address] Performed By: #### 5 7021-8 ####[facility] [id number] [place] [address] [place] Monocytes/100 WBC (Bld) 12.4 % Normal [facility] Comment on above: Order Comment: Speci men Type: BLOOD SPECIMENOrdering Facility: [facility] Address: [address] [place] [address] Performed By: #### 5 7021-8 ####[facility]PITALLIA [id number] [place] [address] [place] Neutrophils (Bld) [#/Vol] 3.90 10*3/uL Normal 1.45-7.50 [facility] Comment on above: Order Comment: Speci men Type: BLOOD SPECIMENOrdering Facility: [facility] Address: [address] [place] [address] Performed By: #### 5 7021-8 ####[facility] SHANDRAFRANCISCAN HEALTH LAFAYETTE EASTLIA [id number] [place] [address] [place] Neutrophils/100 WBC (Bld) 53.9 % Normal [facility] Comment on above: Order Comment: Speci men Type: BLOOD SPECIMENOrdering Facility: [facility] Address: [address] [place] [address] Performed By: #### 5 7021-8 ####[facility] [id number] [place] [address] [place] Nucleated RBC (Bld) [#/Vol] 10*3/uL Normal <0.01 [facility] Comment on above: Order Comment: Speci men Type: BLOOD SPECIMENOrdering Facility: [facility] Address: [address] [place] [address] Performed By: #### 5 7021-8 ####[facility] [id number] [place] [address] [place] Nucleated RBC/100 WBC (Bld) [Ratio] 0.0 /100 WBC Normal [facility] Comment on above: Order Comment: Speci men Type: BLOOD SPECIMENOrdering Facility: [facility] Address: [address] [place] [address] Performed By: #### 5 7021-8 ####[facility] [id number] [place] [address] [place] Platelet mean volume (Bld) [Entitic vol] 9.2 fL Normal 9.0-12.7 [facility] Comment on above: Order Comment: Speci men Type: BLOOD SPECIMENOrdering Facility: [facility] Address: [address] [place] [address] Performed By: #### 5 7021-8 ####[facility] EMERGENCYNCLI [id number] [place] [address] [place] Platelets (Bld) [#/Vol] 254 10*3/uL Normal 150-400 [facility] Comment on above: Order Comment: Speci men Type: BLOOD SPECIMENOrdering Facility: [facility] Address: [address] [place] [address] Performed By: #### 5 7021-8 ####[facility]THMichaelNCLIA [id number] [place] [address] [place] RBC (Bld) [#/Vol] 3.16 10*6/uL Low 3.90-5.20 [facility] Comment on above: Order Comment: Speci men Type: BLOOD SPECIMENOrdering Facility: [facility] Address: [address] [place] [address] Performed By: #### 5 7021-8 ####[facility] EMERGENCYNCA [id number] [place] [address] [place] WBC (Bld) [#/Vol] 7.25 10*3/uL Normal 3.70-11.00 [facility] Comment on above: Order Comment: Speci men Type: BLOOD SPECIMENOrdering Facility: [facility] Address: [address] [place] [address] Performed By: #### 5 7021-8 ####[facility] EMERGENCYNCLIA [id number] [place] [address] [place] CNOVSPon 2024 CNOVSP Normal [facility] Comprehensive metabolic 2000 panelon 2024 Albumin [Mass/Vol] 4.0 g/dL Normal 3.9-4.9 [facility] Comment on above: Order Comment: Speci men Type: BLOOD SPECIMENOrdering Facility: [facility] Address: [address] [place] [address] Performed By: #### 2 4323-8 ####[facility] EMERGENCYNCLIA [id number] [place] [address] [place] ALP [Catalytic activity/Vol] 78 U/L Normal 34-123 [facility] Comment on above: Order Comment: Speci men Type: BLOOD SPECIMENOrdering Facility: [facility] Address: [address] [place] [address] Performed By: #### 2 4323-8 ####[facility] SOUTHWNCLIA [id number] [place] [address] [place] ALT [Catalytic activity/Vol] 5 U/L Low 7-38 [facility] Comment on above: Order Comment: Speci men Type: BLOOD SPECIMENOrdering Facility: [facility] Address: [address] [place] [address] Performed By: #### 2 4323-8 ####[facility] [id number] [place] [address] [place] Anion gap [Moles/Vol] 7 mmol/L Low 8-15 [facility] Comment on above: Order Comment: Speci men Type: BLOOD SPECIMENOrdering Facility: [facility] Address: [address] [place] [address] Performed By: #### 2 4323-8 ####[facility] [id number] [place] [address] [place] AST [Catalytic activity/Vol] 10 U/L Low 13-35 [facility] Comment on above: Order Comment: Speci men Type: BLOOD SPECIMENOrdering Facility: [facility] Address: [address] [place] [address] Performed By: #### 2 4323-8 ####[facility] [id number] [place] [address] [place] Bilirubin [Mass/Vol] 0.5 mg/dL Normal 0.2-1.3 [facility] Comment on above: Order Comment: Speci men Type: BLOOD SPECIMENOrdering Facility: [facility] Address: [address] [id number] Performed By: #### 2 4323-8 ####[facility] MILLTOWNCLIA [id number] [place] [address] [place] Calcium [Mass/Vol] 9.7 mg/dL Normal 8.5-10.2 [facility] Comment on above: Order Comment: Speci men Type: BLOOD SPECIMENOrdering Facility: [facility] Address: [address] [place] [address] Performed By: #### 2 4323-8 ####[facility] MILLTOWNCLIA [id number] [place] [address] [place] Chloride [Moles/Vol] 107 mmol/L Normal 98-107 [facility] Comment on above: Order Comment: Speci men Type: BLOOD SPECIMENOrdering Facility: [facility] Address: [address] [place] [address] Performed By: #### 2 4323-8 ####[facility] MILLWNCLIA [id number] [place] [address] [place] CO2 [Moles/Vol] 26 mmol/L Normal 22-30 [facility] Comment on above: Order Comment: Speci men Type: BLOOD SPECIMENOrdering Facility: [facility] Address: [address] [place] [address] Performed By: #### 2 4323-8 ####[facility] MILLTOWNCLIA [id number] [place] [address] [place] Creatinine [Mass/Vol] 0.79 mg/dL Normal 0.58-0.96 [facility] Comment on above: Order Comment: Speci men Type: BLOOD SPECIMENOrdering Facility: [facility] Address: [address] [place] [address] Performed By: #### 2 4323-8 ####[facility] MILLTOWNCLIA [id number] [place] [address] [place] Creatinine and Glomerular filtration rate.predicted panel (S/P/Bld) 76 mL/min/1.73m??? Normal >=60 [facility] Comment on above: Order Comment: Conorefra rowland Type: BLOOD SPECIMENOrdering Facility: [facility] Address: [address] [place] [address] Result Comment: Rosana mated Glomerular Filtration Rate [...] actual GFR. Performed By: #### 2 4323-8 ####[facility] [id number] [place] [address] [place] Glucose [Mass/Vol] 88 mg/dL Normal 74-99 [facility] Comment on above: Order Comment: Antwan rowland Type: BLOOD SPECIMENOrdering Facility: [facility] Address: [address] [place] [address] Result Comment: The [place] Diabetes [employer] (ADA) provides guidance for cutoff [...] Standards of Medical Care in Diabetes 2016, [place] [employer]. Diabetes Care. 2016.39(Suppl 1). Performed By: #### 2 4323-8 ####[facility] [id number] [place] [address] [place] Potassium [Moles/Vol] 3.8 mmol/L Normal 3.7-5.1 [facility] Comment on above: Order Comment: Speci men Type: BLOOD SPECIMENOrdering Facility: [facility] Address: [address] [place] [address] Performed By: #### 2 4323-8 ####[facility] EMERGENCYNCLIA [id number] [place] [address] [place] Protein [Mass/Vol] 6.4 g/dL Normal 6.3-8.0 [facility] Comment on above: Order Comment: Speci men Type: BLOOD SPECIMENOrdering Facility: [facility] Address: [address] [place] [address] Performed By: #### 2 4323-8 ####[facility]ENCYNCDAV[facility] [id number] [place] [address] [place] Sodium [Moles/Vol] 140 mmol/L Normal 136-144 [facility] Comment on above: Order Comment: Speci men Type: BLOOD SPECIMENOrdering Facility: [facility] Address: [address] [place] [address] Performed By: #### 2 4323-8 ####[facility] EMERGENCYNCLIA [id number] [place] [address] [place] Urea nitrogen [Mass/Vol] 21 mg/dL Normal 7-21 [facility] Comment on above: Order Comment: Speci men Type: BLOOD SPECIMENOrdering Facility: [facility] Address: [address] [place] [address] Performed By: #### 2 4323-8 ####[facility] EMERGENCYNCLIA [id number] [place] [address] [place] CT ABD/PEL W IVCONon 025 CT ABD/PEL W IVCON Invalid Interpretation Code [facility] CT CHEST W IVCONon 5 CT CHEST W IVCON Normal [place] Replaced by [facility] CBC W Auto Differential pane l (Bld)on 04-02-2024 Basophils (Bld) [#/Vol] 0.03 10*3/uL Normal <0.11 [facility] Comment on above: Order Comment: Speci men Type: BLOOD SPECIMENOrdering Facility: [facility] Address: [address] [place] [address] Performed By: #### 5 7021-8 ####[facility] SOUTHWMNLIA [id number] [place] [address] [place] Basophils/100 WBC (Bld) 0.4 % Normal [facility] Comment on above: Order Comment: Speci men Type: BLOOD SPECIMENOrdering Facility: [facility] Address: [address] [place] [address] Performed By: #### 5 7021-8 ####[facility] [id number] [place] [address] [place] Differential cell count method Nom (Bld) Auto Normal [facility] Comment on above: Order Comment: Speci men Type: BLOOD SPECIMENOrdering Facility: [facility] Address: [address] [place] [address] Performed By: #### 5 7021-8 ####[facility] [id number] [place] [address] [place] Eosinophils (Bld) [#/Vol] 0.17 10*3/uL Normal <0.46 [facility] Comment on above: Order Comment: Speci men Type: BLOOD SPECIMENOrdering Facility: [facility] Address: [address] [place] [address] Performed By: #### 5 7021-8 ####[facility] EMERGENCYNCLIA [id number] [place] [address] [place] Eosinophils/100 WBC (Bld) 2.4 % Normal [facility] Comment on above: Order Comment: Speci men Type: BLOOD SPECIMENOrdering Facility: [facility] Address: [address] [place] [address] Performed By: #### 5 7021-8 ####[facility] SHANDRACASEY [id number] [place] [address] [place] Erythrocyte distribution width (RBC) [Ratio] 21.3 % High 11.5-15.0 [facility] Comment on above: Order Comment: Speci men Type: BLOOD SPECIMENOrdering Facility: [facility] Address: [address] [place] [address] Performed By: #### 5 7021-8 ####[facility] SHANDRAESTHERVILLENCSANDRA [id number] [place] [address] [place] Hematocrit (Bld) [Volume fraction] 34.6 % Low 36.0-46.0 [facility] Comment on above: Order Comment: Speci men Type: BLOOD SPECIMENOrdering Facility: [facility] Address: [address] [place] [address] Performed By: #### 5 7021-8 ####[facility] EMERGENCYANA [place] [id number] [place] [address] [place] Hemoglobin (Bld) [Mass/Vol] 11.2 g/dL Low 11.5-15.5 [facility] Comment on above: Order Comment: Speci men Type: BLOOD SPECIMENOrdering Facility: [facility] Address: [address] [place] [address] Performed By: #### 5 7021-8 ####[facility]ERGENCYANA MLIA [id number] [place] [address] [place] Immature granulocytes (Bld) [#/Vol] 10*3/uL Normal <0.10 [facility] Comment on above: Order Comment: Speci men Type: BLOOD SPECIMENOrdering Facility: [facility] Address: [address] [place] [address] Performed By: #### 5 7021-8 ####[facility] EMERGENCYNCLIA [id number] [place] [address] [place] Immature granulocytes/100 WBC (Bld) 0.3 % Normal [facility] Comment on above: Order Comment: Speci men Type: BLOOD SPECIMENOrdering Facility: [facility] Address: [address] [place] [address] Performed By: #### 5 7021-8 ####[facility]PITALLI [id number] [place] [address] [place] Lymphocytes (Bld) [#/Vol] 2.40 10*3/uL Normal 1.00-4.00 [facility] Comment on above: Order Comment: Speci men Type: BLOOD SPECIMENOrdering Facility: [facility] Address: [address] [place] [address] Performed By: #### 5 7021-8 ####[facility] [id number] [place] [address] [place] Lymphocytes/100 WBC (Bld) 34.2 % Normal [facility] Comment on above: Order Comment: Speci men Type: BLOOD SPECIMENOrdering Facility: [facility] Address: [address] [place] [address] Performed By: #### 5 7021-8 ####[facility] EMERGENCYNCLI [id number] [place] [address] [place] MCH (RBC) [Entitic mass] 31.3 pg Normal 26.0-34.0 [facility] Comment on above: Order Comment: Speci men Type: BLOOD SPECIMENOrdering Facility: [facility] Address: [address] [place] [address] Performed By: #### 5 7021-8 ####[facility] EMERGENCYNCLIA [id number] [place] [address] [place] MCHC (RBC) [Mass/Vol] 32.4 g/dL Normal 30.5-36.0 [facility] Comment on above: Order Comment: Speci men Type: BLOOD SPECIMENOrdering Facility: [facility] Address: [address] [place] [address] Performed By: #### 5 7021-8 ####[facility] [id number] [place] [address] [place] MCV (RBC) [Entitic vol] 96.6 fL Normal 80.0-100.0 [facility] Comment on above: Order Comment: Speci men Type: BLOOD SPECIMENOrdering Facility: [facility] Address: [address] [place] [address] Performed By: #### 5 7021-8 ####[facility] EMERGENCYNCDAVIS [facility] [id number] [place] [address] [place] Monocytes (Bld) [#/Vol] 0.72 10*3/uL Normal <0.87 [facility] Comment on above: Order Comment: Speci men Type: BLOOD SPECIMENOrdering Facility: [facility] Address: [address] [place] [address] Performed By: #### 5 7021-8 ####[facility] [id number] [place] [address] [place] Monocytes/100 WBC (Bld) 10.3 % Normal [facility] Comment on above: Order Comment: Speci men Type: BLOOD SPECIMENOrdering Facility: [facility] Address: [address] [place] [address] Performed By: #### 5 7021-8 ####[facility] EMERGENCYNCLI [id number] [place] [address] [place] Neutrophils (Bld) [#/Vol] 3.67 10*3/uL Normal 1.45-7.50 [facility] Comment on above: Order Comment: Speci men Type: BLOOD SPECIMENOrdering Facility: [facility] Address: [address] [place] [address] Performed By: #### 5 7021-8 ####[facility] SHANDRACASEY [id number] [place] [address] [place] Neutrophils/100 WBC (Bld) 52.4 % Normal [facility] Comment on above: Order Comment: Speci men Type: BLOOD SPECIMENOrdering Facility: [facility] Address: [address] [place] [address] Performed By: #### 5 7021-8 ####[facility]ENCYANA MSofie [id number] [place] [address] [place] Nucleated RBC (Bld) [#/Vol] 10*3/uL Normal <0.01 [facility] Comment on above: Order Comment: Speci men Type: BLOOD SPECIMENOrdering Facility: [facility] Address: [address] [place] [address] Performed By: #### 5 7021-8 ####[facility] EMERGENCYPERCY [id number] [place] [address] [place] Nucleated RBC/100 WBC (Bld) [Ratio] 0.0 /100 WBC Normal [facility] Comment on above: Order Comment: Speci men Type: BLOOD SPECIMENOrdering Facility: [facility] Address: [address] [place] [address] Performed By: #### 5 7021-8 ####[facility] [id number] [place] [address] [place] Platelet mean volume (Bld) [Entitic vol] 8.9 fL Low 9.0-12.7 [facility] Comment on above: Order Comment: Speci men Type: BLOOD SPECIMENOrdering Facility: [facility] Address: [address] [place] [address] Performed By: #### 5 7021-8 ####[facility] EMERGENCYNCLIA [id number] [place] [address] [place] Platelets (Bld) [#/Vol] 257 10*3/uL Normal 150-400 [facility] Comment on above: Order Comment: Speci men Type: BLOOD SPECIMENOrdering Facility: [facility] Address: [address] [place] [address] Performed By: #### 5 7021-8 ####[facility] H[facility]PITALLIA [id number] [place] [address] [place] RBC (Bld) [#/Vol] 3.58 10*6/uL Low 3.90-5.20 [facility] Comment on above: Order Comment: Speci men Type: BLOOD SPECIMENOrdering Facility: [facility] Address: [address] [place] [address] Performed By: #### 5 7021-8 ####[facility] [id number] [place] [address] [place] WBC (Bld) [#/Vol] 7.01 10*3/uL Normal 3.70-11.00 [facility] Comment on above: Order Comment: Speci men Type: BLOOD SPECIMENOrdering Facility: [facility] Address: [address] [place] [address] Performed By: #### 5 7021-8 ####[facility]PITALLIA [id number] [place] [address] [place] CNOVSPon 04-02-2024 CNOVSP Normal [facility] Comprehensive metabolic 2000 panelon 04-02-2024 Albumin [Mass/Vol] 4.0 g/dL Normal 3.9-4.9 [facility] Comment on above: Order Comment: Speci men Type: BLOOD SPECIMENOrdering Facility: [facility] Address: [address] [place] [address] Performed By: #### 2 4323-8 ####[facility] MILLTOWNCLIA [id number] [place] [address] [place] ALP [Catalytic activity/Vol] 77 U/L Normal 34-123 [facility] Comment on above: Order Comment: Speci men Type: BLOOD SPECIMENOrdering Facility: [facility] Address: [address] [place] [address] Performed By: #### 2 4323-8 ####[facility] MILLWNCLIA [id number] [place] [address] [place] ALT [Catalytic activity/Vol] 5 U/L Low 7-38 [facility] Comment on above: Order Comment: Speci men Type: BLOOD SPECIMENOrdering Facility: [facility] Address: [address] [place] [address] Performed By: #### 2 4323-8 ####[facility] EMERGENCYNCLIA [id number] [place] [address] [place] Anion gap [Moles/Vol] 8 mmol/L Normal 8-15 [facility] Comment on above: Order Comment: Speci men Type: BLOOD SPECIMENOrdering Facility: [facility] Address: [address] [place] [address] Performed By: #### 2 4323-8 ####[facility] EMERGENCYNCLIA [id number] [place] [address] [place] AST [Catalytic activity/Vol] 11 U/L Low 13-35 [facility] Comment on above: Order Comment: Speci men Type: BLOOD SPECIMENOrdering Facility: [facility] Address: [address] [place] [address] Performed By: #### 2 4323-8 ####[facility] SOUTHWNCLIA [id number] [place] [address] [place] Bilirubin [Mass/Vol] 0.5 mg/dL Normal 0.2-1.3 [facility] Comment on above: Order Comment: Speci men Type: BLOOD SPECIMENOrdering Facility: [facility] Address: [address] [place], [place] [address] Performed By: #### 2 4323-8 ####[facility] EMERGENCYNCLIA [id number] [place] [address] [place] Calcium [Mass/Vol] 9.8 mg/dL Normal 8.5-10.2 [facility] Comment on above: Order Comment: Speci men Type: BLOOD SPECIMENOrdering Facility: [facility] Address: [address] [place] [address] Performed By: #### 2 4323-8 ####[facility] EMERGENCYNCA [id number] [place] [address] [place] Chloride [Moles/Vol] 106 mmol/L Normal 98-107 [facility] Comment on above: Order Comment: Speci men Type: BLOOD SPECIMENOrdering Facility: [facility] Address: [address] [place] [address] Performed By: #### 2 4323-8 ####[facility] [id number] [place] [address] [place] CO2 [Moles/Vol] 24 mmol/L Normal 22-30 [facility] Comment on above: Order Comment: Speci men Type: BLOOD SPECIMENOrdering Facility: [facility] Address: [address] [place], [place] [address] Performed By: #### 2 4323-8 ####[facility] [id number] [place] [address] [place] Creatinine [Mass/Vol] 0.71 mg/dL Normal 0.58-0.96 [facility] Comment on above: Order Comment: Speci men Type: BLOOD SPECIMENOrdering Facility: [facility] Address: [address] [place], [place] [address] Performed By: #### 2 4323-8 ####[facility] EMERGENCYNCDAVIS [facility] [id number] [place] [address] [place] Creatinine and Glomerular filtration rate.predicted panel (S/P/Bld) 87 mL/min/1.73m??? Normal >=60 [facility] Comment on above: Order Comment: Antwan rowland Type: BLOOD SPECIMENOrdering Facility: [facility] Address: [address] [place] [address] Result Comment: Rosana mated Glomerular Filtration Rate [...] actual GFR. Performed By: #### 2 4323-8 ####[facility] [id number] [place] [address] [place] Glucose [Mass/Vol] 105 mg/dL High 74-99 [facility] Comment on above: Order Comment: Antwan rowland Type: BLOOD SPECIMENOrdering Facility: [facility] Address: [address] [place] [address] Result Comment: The [place] Diabetes Association (ADA) provides guidance for cutoff [...] Standards of Medical Care in Diabetes 2016, [place] [employer]. Diabetes Care. 2016.39(Suppl 1). Performed By: #### 2 4323-8 ####[facility] SOUTHWNCLIA [id number] [place] [address] [place] Potassium [Moles/Vol] 4.3 mmol/L Normal 3.7-5.1 [facility] Comment on above: Order Comment: Speci men Type: BLOOD SPECIMENOrdering Facility: [facility] Address: [address] [place] [address] Performed By: #### 2 4323-8 ####[facility] SOUTHWNCLIA [id number] [place] [address] [place] Protein [Mass/Vol] 6.6 g/dL Normal 6.3-8.0 [facility] Comment on above: Order Comment: Speci men Type: BLOOD SPECIMENOrdering Facility: [facility] Address: [address] [place] [address] Performed By: #### 2 4323-8 ####[facility]ENCYANA MLIA [id number] [place] [address] [place] Sodium [Moles/Vol] 138 mmol/L Normal 136-144 [facility] Comment on above: Order Comment: Speci men Type: BLOOD SPECIMENOrdering Facility: [facility] Address: [address] [place] [address] Performed By: #### 2 4323-8 ####[facility]ENCYA[facility] MLIA [id number] [place] [address] [place] Urea nitrogen [Mass/Vol] 18 mg/dL Normal 7-21 [facility] Comment on above: Order Comment: Speci men Type: BLOOD SPECIMENOrdering Facility: [facility] Address: [address] [place], [place] [address] Performed By: #### 2 4323-8 ####[facility] EMERGENCYNCLIA [id number] [place] [address] [place] CBC W Auto Differential pane l (Bld)on 03-11-2024 Basophils (Bld) [#/Vol] 0.03 10*3/uL Normal <0.11 [facility] Comment on above: Order Comment: Speci men Type: BLOOD SPECIMENOrdering Facility: [facility] Address: [address] [place] [address] Performed By: #### 5 7021-8 ####[facility]PITALLIA [id number] [place] [address] [place] Basophils/100 WBC (Bld) 0.4 % Normal [facility] Comment on above: Order Comment: Speci men Type: BLOOD SPECIMENOrdering Facility: [facility] Address: [address] [place] [address] Performed By: #### 5 7021-8 ####[facility] [id number] [place] [address] [place] Differential cell count method Nom (Bld) Auto Normal [facility] Comment on above: Order Comment: Speci men Type: BLOOD SPECIMENOrdering Facility: [facility] Address: [address] [place] [address] Performed By: #### 5 7021-8 ####[facility] [id number] [place] [address] [place] Eosinophils (Bld) [#/Vol] 0.16 10*3/uL Normal <0.46 [facility] Comment on above: Order Comment: Speci men Type: BLOOD SPECIMENOrdering Facility: [facility] Address: [address] [place] [address] Performed By: #### 5 7021-8 ####[facility] [id number] [place] [address] [place] Eosinophils/100 WBC (Bld) 2.3 % Normal [facility] Comment on above: Order Comment: Speci men Type: BLOOD SPECIMENOrdering Facility: [facility] Address: [address] [place] [address] Performed By: #### 5 7021-8 ####[facility] ALISSAA [id number] [place] [address] [place] Erythrocyte distribution width (RBC) [Ratio] 19.9 % High 11.5-15.0 [facility] Comment on above: Order Comment: Speci men Type: BLOOD SPECIMENOrdering Facility: [facility] Address: [address] [place] [address] Performed By: #### 5 7021-8 ####[facility] SHANDRAESTHERVILLEPERCY [id number] [place] [address] [place] Hematocrit (Bld) [Volume fraction] 33.6 % Low 36.0-46.0 [facility] Comment on above: Order Comment: Speci men Type: BLOOD SPECIMENOrdering Facility: [facility] Address: [address] [place] [address] Performed By: #### 5 7021-8 ####[facility] HOSPITALLENIN [id number] [place] [address] [place] Hemoglobin (Bld) [Mass/Vol] 10.8 g/dL Low 11.5-15.5 [facility] Comment on above: Order Comment: Speci men Type: BLOOD SPECIMENOrdering Facility: [facility] Address: [address] [place] [address] Performed By: #### 5 7021-8 ####[facility] SHANDRAESTHERVILLEANA MLIA [id number] [place] [address] [place] Immature granulocytes (Bld) [#/Vol] 10*3/uL Normal <0.10 [facility] Comment on above: Order Comment: Speci men Type: BLOOD SPECIMENOrdering Facility: [facility] Address: [address] [place] [address] Performed By: #### 5 7021-8 ####[facility] HOSPITALLIA [id number] [place] [address] [place] Immature granulocytes/100 WBC (Bld) 0.1 % Normal [facility] Comment on above: Order Comment: Speci men Type: BLOOD SPECIMENOrdering Facility: [facility] Address: [address] [place] [address] Performed By: #### 5 7021-8 ####[facility] [id number] [place] [address] [place] Lymphocytes (Bld) [#/Vol] 2.96 10*3/uL Normal 1.00-4.00 [facility] Comment on above: Order Comment: Speci men Type: BLOOD SPECIMENOrdering Facility: [facility] Address: [address] [place] [address] Performed By: #### 5 7021-8 ####[facility] [id number] [place] [address] [place] Lymphocytes/100 WBC (Bld) 42.5 % Normal [facility] Comment on above: Order Comment: Speci men Type: BLOOD SPECIMENOrdering Facility: [facility] Address: [address] [place] [address] Performed By: #### 5 7021-8 ####[facility] [id number] [place] [address] [place] MCH (RBC) [Entitic mass] 30.9 pg Normal 26.0-34.0 [facility] Comment on above: Order Comment: Speci men Type: BLOOD SPECIMENOrdering Facility: [facility] Address: [address] [place] [address] Performed By: #### 5 7021-8 ####[facility] HOSPITALLI [id number] [place] [address] [place] MCHC (RBC) [Mass/Vol] 32.1 g/dL Normal 30.5-36.0 [facility] Comment on above: Order Comment: Speci men Type: BLOOD SPECIMENOrdering Facility: [facility] Address: [address] [place] [address] Performed By: #### 5 7021-8 ####[facility]ERGENCYNCDAVIS [facility] [id number] [place] [address] [place] MCV (RBC) [Entitic vol] 96.3 fL Normal 80.0-100.0 [facility] Comment on above: Order Comment: Speci men Type: BLOOD SPECIMENOrdering Facility: [facility] Address: [address] [place] [address] Performed By: #### 5 7021-8 ####[facility]ERGENCYNCDAVIS [facility] [id number] [place] [address] [place] Monocytes (Bld) [#/Vol] 0.72 10*3/uL Normal <0.87 [facility] Comment on above: Order Comment: Speci men Type: BLOOD SPECIMENOrdering Facility: [facility] Address: [address] [place] [address] Performed By: #### 5 7021-8 ####[facility] EMERGENCYNCLIA [id number] [place] [address] [place] Monocytes/100 WBC (Bld) 10.3 % Normal [facility] Comment on above: Order Comment: Speci men Type: BLOOD SPECIMENOrdering Facility: [facility] Address: [address] [place] [address] Performed By: #### 5 7021-8 ####[facility] EMERGENCYNCDAVIS [facility] [id number] [place] [address] [place] Neutrophils (Bld) [#/Vol] 3.09 10*3/uL Normal 1.45-7.50 [facility] Comment on above: Order Comment: Speci men Type: BLOOD SPECIMENOrdering Facility: [facility] Address: [address] [place] [address] Performed By: #### 5 7021-8 ####[facility] SHANDRANATHANLIA [id number] [place] [address] [place] [facility] Neutrophils/100 WBC (Bld) 44.4 % Normal [facility] Comment on above: Order Comment: Speci men Type: BLOOD SPECIMENOrdering Facility: [facility] Address: [address] [place] [address] Performed By: #### 5 7021-8 ####[facility] EMERGENCYNCLIA [id number] [place] [address] [place] Nucleated RBC (Bld) [#/Vol] 10*3/uL Normal <0.01 [facility] Comment on above: Order Comment: Speci men Type: BLOOD SPECIMENOrdering Facility: [facility] Address: [address] [place] [address] Performed By: #### 5 7021-8 ####[facility] EMERGENCYNCLIA [id number] [place] [address] [place] Nucleated RBC/100 WBC (Bld) [Ratio] 0.0 /100 WBC Normal [facility] Comment on above: Order Comment: Speci men Type: BLOOD SPECIMENOrdering Facility: [facility] Address: [address] [place] [address] Performed By: #### 5 7021-8 ####[facility]ITALLIA [id number] [place] [address] [place] Platelet mean volume (Bld) [Entitic vol] 9.0 fL Normal 9.0-12.7 [facility] Comment on above: Order Comment: Speci men Type: BLOOD SPECIMENOrdering Facility: [facility] Address: [address] [place] [address] Performed By: #### 5 7021-8 ####[facility] EMERGENCYANA [facility] [id number] [place] [address] [place] Platelets (Bld) [#/Vol] 230 10*3/uL Normal 150-400 [facility] Comment on above: Order Comment: Speci men Type: BLOOD SPECIMENOrdering Facility: [facility] Address: [address] [place] [address] Performed By: #### 5 7021-8 ####[facility]ERGENCYNCDAVIS [facility] [id number] [place] [address] [place] RBC (Bld) [#/Vol] 3.49 10*6/uL Low 3.90-5.20 [facility] Comment on above: Order Comment: Speci men Type: BLOOD SPECIMENOrdering Facility: [facility] Address: [address] [place] [address] Performed By: #### 5 7021-8 ####[facility] EMERGENCYNCA [id number] [place] [address] [place] WBC (Bld) [#/Vol] 6.97 10*3/uL Normal 3.70-11.00 [facility] Comment on above: Order Comment: Speci men Type: BLOOD SPECIMENOrdering Facility: [facility] Address: [address] [place] [address] Performed By: #### 5 7021-8 ####[facility] EMERGENCYNCLIA [id number] [place] [address] [place] CNOVSPon 03-11-2024 CNOVSP Normal [facility] Comprehensive metabolic 2000 panelon 03-11-2024 Albumin [Mass/Vol] 4.1 g/dL Normal 3.9-4.9 [facility] Comment on above: Order Comment: Speci men Type: BLOOD SPECIMENOrdering Facility: [facility] Address: [address] [place] [address] Performed By: #### 2 4323-8 ####[facility] [id number] [place] [address] [place] ALP [Catalytic activity/Vol] 75 U/L Normal 34-123 [facility] Comment on above: Order Comment: Speci men Type: BLOOD SPECIMENOrdering Facility: [facility] Address: [address] [place] [address] Performed By: #### 2 4323-8 ####[facility] [id number] [place] [address] [place] ALT [Catalytic activity/Vol] 6 U/L Low 7-38 [facility] Comment on above: Order Comment: Speci men Type: BLOOD SPECIMENOrdering Facility: [facility] Address: [address] [place] [address] Performed By: #### 2 4323-8 ####[facility]ERGENCYNCDAVIS [facility] [id number] [place] [address] [place] Anion gap [Moles/Vol] 11 mmol/L Normal 8-15 [facility] Comment on above: Order Comment: Speci men Type: BLOOD SPECIMENOrdering Facility: [facility] Address: [address] [place] [address] Performed By: #### 2 4323-8 ####[facility] [id number] [place] [address] [place] AST [Catalytic activity/Vol] 12 U/L Low 13-35 [facility] Comment on above: Order Comment: Speci men Type: BLOOD SPECIMENOrdering Facility: [facility] Address: [address] [place] [address] Performed By: #### 2 4323-8 ####[facility] EMERGENCYNCLIA [id number] [place] [address] [place] Bilirubin [Mass/Vol] 0.4 mg/dL Normal 0.2-1.3 [facility] Comment on above: Order Comment: Speci men Type: BLOOD SPECIMENOrdering Facility: [facility] Address: [address] [place] [address] Performed By: #### 2 4323-8 ####[facility] LUCIONCSANDRA [id number] [place] [address] [place] Calcium [Mass/Vol] 9.9 mg/dL Normal 8.5-10.2 [facility] Comment on above: Order Comment: Speci men Type: BLOOD SPECIMENOrdering Facility: [facility] Address: [address] [place] [address] Performed By: #### 2 4323-8 ####[facility] EMERGENCYNCLENINA [id number] [place] [address] [place] Chloride [Moles/Vol] 107 mmol/L Normal 98-107 [facility] Comment on above: Order Comment: Speci men Type: BLOOD SPECIMENOrdering Facility: [facility] Address: [address] [place] [address] Performed By: #### 2 4323-8 ####[facility] SHANDRAESTHERVILLENCLENINA [id number] [place] [address] [place] CO2 [Moles/Vol] 26 mmol/L Normal 22-30 [facility] Comment on above: Order Comment: Speci men Type: BLOOD SPECIMENOrdering Facility: [facility] Address: [address] [place] [address] Performed By: #### 2 4323-8 ####[facility] EMERGENCYNCLIA [id number] [place] [address] [place] Creatinine [Mass/Vol] 0.73 mg/dL Normal 0.58-0.96 [facility] Comment on above: Order Comment: Speci men Type: BLOOD SPECIMENOrdering Facility: [facility] Address: [address] [place] [address] Performed By: #### 2 4323-8 ####[facility] EMERGENCYNCLI [id number] [place] [address] [place] Creatinine and Glomerular filtration rate.predicted panel (S/P/Bld) 84 mL/min/1.73m??? Normal >=60 [facility] Comment on above: Order Comment: Antwan rowland Type: BLOOD SPECIMENOrdering Facility: [facility] Address: [address] [place] [address] Result Comment: Rosana mated Glomerular Filtration Rate [...] actual GFR. Performed By: #### 2 4323-8 ####[facility] [id number] [place] [address] [place] Glucose [Mass/Vol] 100 mg/dL High 74-99 [facility] Comment on above: Order Comment: Antwan rowland Type: BLOOD SPECIMENOrdering Facility: [facility] Address: [address] [place] [address] Result Comment: The [place] Diabetes Association (ADA) provides guidance for cutoff [...] Standards of Medical Care in Diabetes 2016, [place] Diabetes Association. Diabetes Care. 2016.39(Suppl 1). Performed By: #### 2 4323-8 ####[facility] [id number] [place] [address] [place] Potassium [Moles/Vol] 3.7 mmol/L Normal 3.7-5.1 [facility] Comment on above: Order Comment: Speci men Type: BLOOD SPECIMENOrdering Facility: [facility] Address: [address] [place] [address] Performed By: #### 2 4323-8 ####[facility] EMERGENCYPERCY [id number] [place] [address] [place] Protein [Mass/Vol] 6.6 g/dL Normal 6.3-8.0 [facility] Comment on above: Order Comment: Speci men Type: BLOOD SPECIMENOrdering Facility: [facility] Address: [address] [place] [address] Performed By: #### 2 4323-8 ####[facility] EMERGENCYPERCY [id number] [place] [address] [place] Sodium [Moles/Vol] 144 mmol/L Normal 136-144 [facility] Comment on above: Order Comment: Speci men Type: BLOOD SPECIMENOrdering Facility: [facility] Address: [address] [place] [address] Performed By: #### 2 4323-8 ####[facility] EMERGENCYJACOBYA [id number] [place] [address] [place] Urea nitrogen [Mass/Vol] 19 mg/dL Normal 7-21 [facility] Comment on above: Order Comment: Speci men Type: BLOOD SPECIMENOrdering Facility: [facility] Address: [address] [place] [address] Performed By: #### 2 4323-8 ####[facility] EMERGENCYNCLIA [id number] [place] [address] [place] CBC W Auto Differential pane l (Bld)on 02-20-2024 Basophils (Bld) [#/Vol] 0.04 10*3/uL Normal <0.11 [facility] Comment on above: Order Comment: Speci men Type: BLOOD SPECIMENOrdering Facility: [facility] Address: [address] [place] [address] Performed By: #### 5 7021-8 ####[facility]ERGENCYANA MLIA [id number] [place] [address] [place] Basophils/100 WBC (Bld) 0.6 % Normal [facility] Comment on above: Order Comment: Speci men Type: BLOOD SPECIMENOrdering Facility: [facility] Address: [address] [place] [address] Performed By: #### 5 7021-8 ####[facility]ITALLIA [id number] [place] [address] [place] Differential cell count method Nom (Bld) Auto Normal [facility] Comment on above: Order Comment: Speci men Type: BLOOD SPECIMENOrdering Facility: [facility] Address: [address] [place] [address] Performed By: #### 5 7021-8 ####[facility] [id number] [place] [address] [place] Eosinophils (Bld) [#/Vol] 0.09 10*3/uL Normal <0.46 [facility] Comment on above: Order Comment: Speci men Type: BLOOD SPECIMENOrdering Facility: [facility] Address: [address] [place] [address] Performed By: #### 5 7021-8 ####[facility]ITALLIA [id number] [place] [address] [place] Eosinophils/100 WBC (Bld) 1.4 % Normal [facility] Comment on above: Order Comment: Speci men Type: BLOOD SPECIMENOrdering Facility: [facility] Address: [address] [place] [address] Performed By: #### 5 7021-8 ####[facility] EMERGENCYNCLIA [id number] [place] [address] [place] Erythrocyte distribution width (RBC) [Ratio] 17.8 % High 11.5-15.0 [facility] Comment on above: Order Comment: Speci men Type: BLOOD SPECIMENOrdering Facility: [facility] Address: [address] [place] [address] Performed By: #### 5 7021-8 ####[facility] [id number] [place] [address] [place] Hematocrit (Bld) [Volume fraction] 35.0 % Low 36.0-46.0 [facility] Comment on above: Order Comment: Speci men Type: BLOOD SPECIMENOrdering Facility: [facility] Address: [address] [place] [address] Performed By: #### 5 7021-8 ####[facility] [id number] [place] [address] [place] Hemoglobin (Bld) [Mass/Vol] 11.3 g/dL Low 11.5-15.5 [facility] Comment on above: Order Comment: Speci men Type: BLOOD SPECIMENOrdering Facility: [facility] Address: [address] [place] [address] Performed By: #### 5 7021-8 ####[facility] [id number] [place] [address] [place] Immature granulocytes (Bld) [#/Vol] 10*3/uL Normal <0.10 [facility] Comment on above: Order Comment: Speci men Type: BLOOD SPECIMENOrdering Facility: [facility] Address: [address] [place] [address] Performed By: #### 5 7021-8 ####[facility] [id number] [place] [address] [place] Immature granulocytes/100 WBC (Bld) 0.3 % Normal [facility] Comment on above: Order Comment: Speci men Type: BLOOD SPECIMENOrdering Facility: [facility] Address: [address] [place] [address] Performed By: #### 5 7021-8 ####[facility] EMERGENCYNCA [id number] [place] [address] [place] Lymphocytes (Bld) [#/Vol] 3.31 10*3/uL Normal 1.00-4.00 [facility] Comment on above: Order Comment: Speci men Type: BLOOD SPECIMENOrdering Facility: [facility] Address: [address] [place] [address] Performed By: #### 5 7021-8 ####[facility] EMERGENCYANA MSofie [id number] [place] [address] [place] Lymphocytes/100 WBC (Bld) 50.2 % Normal [facility] Comment on above: Order Comment: Speci men Type: BLOOD SPECIMENOrdering Facility: [facility] Address: [address] [place] [address] Performed By: #### 5 7021-8 ####[facility]ERGENCYNCDAVIS [facility] [id number] [place] [address] [place] MCH (RBC) [Entitic mass] 30.1 pg Normal 26.0-34.0 [facility] Comment on above: Order Comment: Speci men Type: BLOOD SPECIMENOrdering Facility: [facility] Address: [address] [place] [address] Performed By: #### 5 7021-8 ####[facility]ITALLIA [id number] [place] [address] [place] MCHC (RBC) [Mass/Vol] 32.3 g/dL Normal 30.5-36.0 [facility] Comment on above: Order Comment: Speci men Type: BLOOD SPECIMENOrdering Facility: [facility] Address: [address] [place] [address] Performed By: #### 5 7021-8 ####[facility] SHANDRAMichaelNCSANDRA [id number] [place] [address] [place] MCV (RBC) [Entitic vol] 93.3 fL Normal 80.0-100.0 [facility] Comment on above: Order Comment: Speci men Type: BLOOD SPECIMENOrdering Facility: [facility] Address: [address] [place] [address] Performed By: #### 5 7021-8 ####[facility] EMERGENCYNCSofie [id number] [place] [address] [place] Monocytes (Bld) [#/Vol] 0.87 10*3/uL High <0.87 [facility] Comment on above: Order Comment: Speci men Type: BLOOD SPECIMENOrdering Facility: [facility] Address: [address] [place] [address] Performed By: #### 5 7021-8 ####[facility] [id number] [place] [address] [place] Monocytes/100 WBC (Bld) 13.2 % Normal [facility] Comment on above: Order Comment: Speci men Type: BLOOD SPECIMENOrdering Facility: [facility] Address: [address] [place] [address] Performed By: #### 5 7021-8 ####[facility] [id number] [place] [address] [place] Neutrophils (Bld) [#/Vol] 2.26 10*3/uL Normal 1.45-7.50 [facility] Comment on above: Order Comment: Speci men Type: BLOOD SPECIMENOrdering Facility: [facility] Address: [address] [place] [address] Performed By: #### 5 7021-8 ####[facility] EMERGENCYANA MLIA [id number] [place] [address] [place] Neutrophils/100 WBC (Bld) 34.3 % Normal [facility] Comment on above: Order Comment: Speci men Type: BLOOD SPECIMENOrdering Facility: [facility] Address: [address] [place] [address] Performed By: #### 5 7021-8 ####[facility]ITALLIA [id number] [place] [address] [place] Nucleated RBC (Bld) [#/Vol] 10*3/uL Normal <0.01 [facility] Comment on above: Order Comment: Speci men Type: BLOOD SPECIMENOrdering Facility: [facility] Address: [address] [place] [address] Performed By: #### 5 7021-8 ####[facility] [id number] [place] [address] [place] Nucleated RBC/100 WBC (Bld) [Ratio] 0.0 /100 WBC Normal [facility] Comment on above: Order Comment: Speci men Type: BLOOD SPECIMENOrdering Facility: [facility] Address: [address] [place] [address] Performed By: #### 5 7021-8 ####[facility] [id number] [place] [address] [place] Platelet mean volume (Bld) [Entitic vol] 8.4 fL Low 9.0-12.7 [facility] Comment on above: Order Comment: Speci men Type: BLOOD SPECIMENOrdering Facility: [facility] Address: [address] [place] [address] Performed By: #### 5 7021-8 ####[facility] EMERGENCYNCLIA [id number] [place] [address] [place] Platelets (Bld) [#/Vol] 280 10*3/uL Normal 150-400 [facility] Comment on above: Order Comment: Speci men Type: BLOOD SPECIMENOrdering Facility: [facility] Address: [address] [place] [address] Performed By: #### 5 7021-8 ####[facility]THMichaelJACOBYA [id number] [place] [address] [place] RBC (Bld) [#/Vol] 3.75 10*6/uL Low 3.90-5.20 [facility] Comment on above: Order Comment: Speci men Type: BLOOD SPECIMENOrdering Facility: [facility] Address: [address] [place] [address] Performed By: #### 5 7021-8 ####[facility] EMERGENCYPERCY [id number] [place] [address] [place] WBC (Bld) [#/Vol] 6.59 10*3/uL Normal 3.70-11.00 [facility] Comment on above: Order Comment: Speci men Type: BLOOD SPECIMENOrdering Facility: [facility] Address: [address] [place] [address] Performed By: #### 5 7021-8 ####[facility] EMERGENCYANA MLIA [id number] [place] [address] [place] CNOVSPon 02-20-2024 CNOVSP Normal [facility] Comprehensive metabolic 2000 panelon 02-20-2024 Albumin [Mass/Vol] 3.9 g/dL Normal 3.9-4.9 [facility] Comment on above: Order Comment: Speci men Type: BLOOD SPECIMENOrdering Facility: [facility] Address: [address] [place] [address] Performed By: #### 2 4323-8 ####[facility] EMERGENCYPERCY [id number] [place] [address] [place] ALP [Catalytic activity/Vol] 77 U/L Normal 34-123 [facility] Comment on above: Order Comment: Speci men Type: BLOOD SPECIMENOrdering Facility: [facility] Address: [address] [place] [address] Performed By: #### 2 4323-8 ####[facility] MILLWNCLIA [id number] [place] [address] [place] ALT [Catalytic activity/Vol] 7 U/L Normal 7-38 [facility] Comment on above: Order Comment: Speci men Type: BLOOD SPECIMENOrdering Facility: [facility] Address: [address] [place] [address] Performed By: #### 2 4323-8 ####[facility] EMERGENCYNCLIA [id number] [place] [address] [place] Anion gap [Moles/Vol] 13 mmol/L Normal 8-15 [facility] Comment on above: Order Comment: Speci men Type: BLOOD SPECIMENOrdering Facility: [facility] Address: [address] [place] [address] Performed By: #### 2 4323-8 ####[facility] EMERGENCYNCLIA [id number] [place] [address] [place] AST [Catalytic activity/Vol] 11 U/L Low 13-35 [facility] Comment on above: Order Comment: Speci men Type: BLOOD SPECIMENOrdering Facility: [facility] Address: [address] [place] [address] Performed By: #### 2 4323-8 ####[facility] EMERGENCYNCLIA [id number] [place] [address] [place] Bilirubin [Mass/Vol] 0.3 mg/dL Normal 0.2-1.3 [facility] Comment on above: Order Comment: Speci men Type: BLOOD SPECIMENOrdering Facility: [facility] Address: [address] [place] [address] Performed By: #### 2 4323-8 ####[facility]ID[facility] MILLTOWNCLIA [id number] [place] [address] [place] Calcium [Mass/Vol] 9.9 mg/dL Normal 8.5-10.2 [facility] Comment on above: Order Comment: Speci men Type: BLOOD SPECIMENOrdering Facility: [facility] Address: [address] [place] [address] Performed By: #### 2 4323-8 ####[facility] MILLTOWNCLIA [id number] [place] [address] [place] Chloride [Moles/Vol] 104 mmol/L Normal 98-107 [facility] Comment on above: Order Comment: Speci men Type: BLOOD SPECIMENOrdering Facility: [facility] Address: [address] [place] [address] Performed By: #### 2 4323-8 ####[facility] MILLTOWNCLIA [id number] [place] [address] [place] CO2 [Moles/Vol] 22 mmol/L Normal 22-30 [facility] Comment on above: Order Comment: Speci men Type: BLOOD SPECIMENOrdering Facility: [facility] Address: [address] [place] [address] Performed By: #### 2 4323-8 ####[facility] MILLTOWNCLIA [id number] [place] [address] [place] Creatinine [Mass/Vol] 0.77 mg/dL Normal 0.58-0.96 [facility] Comment on above: Order Comment: Speci men Type: BLOOD SPECIMENOrdering Facility: [facility] Address: [address] [place] [address] Performed By: #### 2 4323-8 ####[facility] [id number] [place] [address] [place] Creatinine and Glomerular filtration rate.predicted panel (S/P/Bld) 79 mL/min/1.73m??? Normal >=60 [facility] Comment on above: Order Comment: Antwan rowland Type: BLOOD SPECIMENOrdering Facility: [facility] Address: [address] [place] [address] Result Comment: Rosana mated Glomerular Filtration Rate [...] actual GFR. Performed By: #### 2 4323-8 ####[facility] [id number] [place] [address] [place] Glucose [Mass/Vol] 113 mg/dL High 74-99 [facility] Comment on above: Order Comment: Antwan rowland Type: BLOOD SPECIMENOrdering Facility: [facility] Address: [address] [place] [address] Result Comment: The [place] Diabetes Association (ADA) provides guidance for cutoff [...] Standards of Medical Care in Diabetes 2016, [place] [employer]. Diabetes Care. 2016.39(Suppl 1). Performed By: #### 2 4323-8 ####[facility] [id number] [place] [address] [place] Potassium [Moles/Vol] 3.7 mmol/L Normal 3.7-5.1 [facility] Comment on above: Order Comment: Speci men Type: BLOOD SPECIMENOrdering Facility: [facility] Address: [address] [place] [address] [place] [address] Performed By: #### 2 4323-8 ####[facility] MILLWANA MLIA [id number] [place] [address] [place] Protein [Mass/Vol] 6.7 g/dL Normal 6.3-8.0 [facility] Comment on above: Order Comment: Speci men Type: BLOOD SPECIMENOrdering Facility: [facility] Address: [address] [place] [address] Performed By: #### 2 4323-8 ####[facility]PITALLIA [id number] [place] [address] [place] Sodium [Moles/Vol] 139 mmol/L Normal 136-144 [facility] Comment on above: Order Comment: Speci men Type: BLOOD SPECIMENOrdering Facility: [facility] Address: [address] [place] [address] Performed By: #### 2 4323-8 ####[facility]PITALL[facility] [id number] [place] [address] [place] Urea nitrogen [Mass/Vol] 18 mg/dL Normal 7-21 [facility] Comment on above: Order Comment: Speci men Type: BLOOD SPECIMENOrdering Facility: [facility] Address: [address] [place] [address] Performed By: #### 2 4323-8 ####[facility] [id number] [place] [address] [place] 12 Lead EKGon 02-10-2024 12 Lead EKG [facility] Cardiovascular [facility] [address] [place] [address] 12 Lead EKG 02/10/24 1409 MR#: [id number] Acct: [id number] Name: MARIE BLAIR Rep #: [id number] : 1945 78 From: Kj Harper MD Attending Dr: Agus Oden DO Status: [facility] Ordering Dr: Christiano Emanuel MD Date: 02/10/24 Location: EN Sex: F C Admitted: Test Reason : [...] ECG No previous ECGs available Confirmed by KJ HARPER MD ([id number]), acquisitions editor VENESSA CARRANZA ([id number]) on 02/11/2024 2:15:16 PM Referred By: Joe Tim Confirmed By: KJ HARPER MD 02/11/24 1415 Date Kj Harper MD CC: Dr. Christiano Emanuel MD; Dr. Joe Tim MD; Agus Oden DO Signed Normal [facility] ERCP Biliary/Pancreason 01-29 ERCP Biliary/Pancreas [facility] Imaging Services [address] [place], [place] [address] ERCP Biliary/Pancreas MR#: [id number] Acct: [id number] Name: MARIE BLAIR Rep #: [id number] : 1945 F 78 From: Martin watters MD PCP: Dr. Joe Tim MD Status: [facility] Study: ERCP Biliary/Pancreas Date of Exam: 02/10/24 Exam# [id number] Ordering Dr: Agus Oden DO :[id number] STUDY: ERCP. REASON FOR EXAM: Female, 78 years old. Right upper quadrant pain. FLUOROSCOPY TIME (if supplied): ( 2 minutes and 37 seconds ) minutes/seconds. 24.97 mGy. TECHNIQUE: ERCP was performed by the community director. Fluoroscopic services was provided. COMPARISON: None. FINDINGS: Fluoroscopic services provided for ERCP. RAD/ERCP Biliary/Pancreas IMPRESSION: Fluoroscopic services provided for ERCP. Electronically Signed: Martin James MD at 10:37 EST Reading Location ID and State: [facility] / [place] , Service support , CC: Dr. Joe Tim MD; Agus Oden DO It Senior Analyst: Signed Normal [facility] ERCP Reporton 02-10-2024 ERCP Report [facility] Medical Records Department [address] [place] [address] ERCP Report MR#: [id number] Acct: [id number] Name: MARIE BLAIR Rep #: [id number] : 1945 78 From: Agus Oden DO PCP: Dr. Joe Tim MD Status:[facility] Patient Name: Marie Blair Procedure Date: 02/10/2024 [...] hours 42 minutes 28 seconds Findings: The merchandising specialist film was normal. The esophagus was successfully [...] and snare and (more content not included)... [facility] MR/POSTOP.[facility] 02-10-2024 MR/POSTOP.[facility] Medical Records Department [address] [place] [address] Anesthesia Postop Eval I 02/10/24 1633 MR#: [id number] Acct: [id number] Name: MARIE BLAIR Rep #: [id number] : 1945 78 From: Ruddy Marion PCP: Dr. Joe Tim MD Status[place] [place]: C Location: [place] [address] Anesthesia: Postop Eval I Current Vital Signs [...] document: Postop Eval 1 completed: Yes 02/10/24 163 Date Ruddy Lock Signature: Date CC: Signed Normal [facility] MR/[id number] 02-10-2024 MR/POSTOPAN2 [facility] Medical Records Department [address] [place] [address] Anesthesia Postop Eval II 02/10/24 172 MR#: [id number] Acct: [id number] Name: MARIE BLAIR Rep #: [id number] : 1945 78 From: Dmitry Bradford MD PCP: Dr. Joe Tim MD Status:REG [facility] Y Race: C Location: [place] [address] Anesthesia Postop Eval I Sum Postop Eval [...] 0 nausea: No Vomiting: No 02/10/241726 Date Dmitry Lock Signature: Date CC: Signed Normal [facility] Special Stain Group IIon Special Stain Group II -------- Patient Age/Sex Location Account Attending Physician -------- MARIE BLAIR 78/F EN [id number] Agus Oden DO -------- Specimen: [id number] Received: 02/10/24 Status: LISS Agustin Num: [id number] Spec Type: Fluid Subm Dr: Agus Oden, HEADER OPERATION: ERCP with stent removal PRE-OP DIAGNOSIS: Gallbladder cancer TISSUE SUBMITTED: Biliary stent for cytology -------- DIAGNOSIS CYTOLOGY Biliary stent fluid for cytology (cytospin and cellblock): Negative for malignant cells. AM.mr 02/12/2024 CYTOLOGY STUDY Slides are reviewed. CYTOLOGY GROSS Received is 1 black stent measuring 12.0cm in length labeled with the patient's name and and designated per the requisition as Biliary stent. Submitted for cytology preparation including cell block. Mr 02/11/2024 TC:5 CPT: 78992,91200 Signed (signature on file) Dr. Juan Ramon Garcia, DO 02/12/24 1136 -------- Normal [facility] Comment on above: Performed By: #### P SSII #### [facility] Laboratory [address] [facility] [place], [address] CBC W Auto Differential pane l (Bld)on 01-30-2024 Basophils (Bld) [#/Vol] 0.03 10*3/uL Normal <0.11 [facility] Comment on above: Order Comment: Antwan rowland Type: BLOOD SPECIMENOrdering Facility: [facility] Address: [address] [place] [address] Performed By: #### 5 7021-8 ####[facility] [id number] [place] [address] [place] Basophils/100 WBC (Bld) 0.4 % Normal [facility] Comment on above: Order Comment: Antwan rowland Type: BLOOD SPECIMENOrdering Facility: [facility] Address: [address] [place] [address] Performed By: #### 5 7021-8 ####[facility]ENCYNCA [id number] [place] [address] [place] Differential cell count method Nom (Bld) Auto Normal [facility] Comment on above: Order Comment: Speci men Type: BLOOD SPECIMENOrdering Facility: [facility] Address: [address] [place] [address] Performed By: #### 5 7021-8 ####[facility]ERGENCYNCDAV[facility] [id number] [place] [address] [place] Eosinophils (Bld) [#/Vol] 0.06 10*3/uL Normal <0.46 [facility] Comment on above: Order Comment: Speci men Type: BLOOD SPECIMENOrdering Facility: [facility] Address: [address] [place] [address] Performed By: #### 5 7021-8 ####[facility] EMERGENCYNCLIA [id number] [place] [address] [place] Eosinophils/100 WBC (Bld) 0.8 % Normal [facility] Comment on above: Order Comment: Speci men Type: BLOOD SPECIMENOrdering Facility: [facility] Address: [address] [place] [address] Performed By: #### 5 7021-8 ####[facility] EMERGENCYNCLI [id number] [place] [address] [place] Erythrocyte distribution width (RBC) [Ratio] 15.8 % High 11.5-15.0 [facility] Comment on above: Order Comment: Speci men Type: BLOOD SPECIMENOrdering Facility: [facility] Address: [address] [place] [address] Performed By: #### 5 7021-8 ####[facility] EMERGENCYNCL[facility] [id number] [place] [address] [place] Hematocrit (Bld) [Volume fraction] 36.0 % Normal 36.0-46.0 [facility] Comment on above: Order Comment: Speci men Type: BLOOD SPECIMENOrdering Facility: [facility] Address: [address] [place] [address] Performed By: #### 5 7021-8 ####[facility] SHANDRAESTHERVILLEPERCY [id number] [place] [address] [place] Hemoglobin (Bld) [Mass/Vol] 11.2 g/dL Low 11.5-15.5 [facility] Comment on above: Order Comment: Speci men Type: BLOOD SPECIMENOrdering Facility: [facility] Address: [address] [place] [address] Performed By: #### 5 7021-8 ####[facility]ERGENCYPERCY [id number] [place] [address] [place] Immature granulocytes (Bld) [#/Vol] 0.03 10*3/uL Normal <0.10 [facility] Comment on above: Order Comment: Speci men Type: BLOOD SPECIMENOrdering Facility: [facility] Address: [address] [place] [address] Performed By: #### 5 7021-8 ####[facility] EMERGENCYJACOBYSofie [id number] [place] [address] [place] Immature granulocytes/100 WBC (Bld) 0.4 % Normal [facility] Comment on above: Order Comment: Speci men Type: BLOOD SPECIMENOrdering Facility: [facility] Address: [address] [place] [address] Performed By: #### 5 7021-8 ####[facility] EMERGENCYNCLIA [id number] [place] [address] [place] Lymphocytes (Bld) [#/Vol] 3.06 10*3/uL Normal 1.00-4.00 [facility] Comment on above: Order Comment: Speci men Type: BLOOD SPECIMENOrdering Facility: [facility] Address: [address] [place] [address] Performed By: #### 5 7021-8 ####[facility]ERGENCYNCDAVIS [facility] [id number] [place] [address] [place] Lymphocytes/100 WBC (Bld) 41.7 % Normal [facility] Comment on above: Order Comment: Speci men Type: BLOOD SPECIMENOrdering Facility: [facility] Address: [address] [place] [address] Performed By: #### 5 7021-8 ####[facility]ENCYNCDAV[facility] [id number] [place] [address] [place] MCH (RBC) [Entitic mass] 28.8 pg Normal 26.0-34.0 [facility] Comment on above: Order Comment: Speci men Type: BLOOD SPECIMENOrdering Facility: [facility] Address: [address] [place] [address] Performed By: #### 5 7021-8 ####[facility] [id number] [place] [address] [place] MCHC (RBC) [Mass/Vol] 31.1 g/dL Normal 30.5-36.0 [facility] Comment on above: Order Comment: Speci men Type: BLOOD SPECIMENOrdering Facility: [facility] Address: [address] [place] [address] Performed By: #### 5 7021-8 ####[facility]ENCYNCDAV[facility] [id number] [place] [address] [place] MCV (RBC) [Entitic vol] 92.5 fL Normal 80.0-100.0 [facility] Comment on above: Order Comment: Speci men Type: BLOOD SPECIMENOrdering Facility: [facility] Address: [address] [place] [address] Performed By: #### 5 7021-8 ####[facility] MILLTOWNCLIA [id number] [place] [address] [place] Monocytes (Bld) [#/Vol] 0.70 10*3/uL Normal <0.87 [facility] Comment on above: Order Comment: Speci men Type: BLOOD SPECIMENOrdering Facility: [facility] Address: [address] [place] [address] Performed By: #### 5 7021-8 ####[facility] MILLTOWNCLIA [id number] [place] [address] [place] Monocytes/100 WBC (Bld) 9.5 % Normal [facility] Comment on above: Order Comment: Speci men Type: BLOOD SPECIMENOrdering Facility: [facility] Address: [address] [place] [address] Performed By: #### 5 7021-8 ####[facility] [id number] [place] [address] [place] Neutrophils (Bld) [#/Vol] 3.45 10*3/uL Normal 1.45-7.50 [facility] Comment on above: Order Comment: Speci men Type: BLOOD SPECIMENOrdering Facility: [facility] Address: [address] [place] [address] Performed By: #### 5 7021-8 ####[facility] MILLTOWNCLIA [id number] [place] [address] [place] Neutrophils/100 WBC (Bld) 47.2 % Normal [facility] Comment on above: Order Comment: Speci men Type: BLOOD SPECIMENOrdering Facility: [facility] Address: [address] [place] [address] Performed By: #### 5 7021-8 ####[facility] MILLWNCLIA [id number] [place] [address] [place] Nucleated RBC (Bld) [#/Vol] 10*3/uL Normal <0.01 [facility] Comment on above: Order Comment: Speci men Type: BLOOD SPECIMENOrdering Facility: [facility] Address: [address] [place] [address] Performed By: #### 5 7021-8 ####[facility] EMERGENCYANA MSANDRA [id number] [place] [address] [place] Nucleated RBC/100 WBC (Bld) [Ratio] 0.0 /100 WBC Normal [facility] Comment on above: Order Comment: Speci men Type: BLOOD SPECIMENOrdering Facility: [facility] Address: [address] [place] [address] Performed By: #### 5 7021-8 ####[facility] EMERGENCYANA MSofie [id number] [place] [address] [place] Platelet mean volume (Bld) [Entitic vol] 9.5 fL Normal 9.0-12.7 [facility] Comment on above: Order Comment: Speci men Type: BLOOD SPECIMENOrdering Facility: [facility] Address: [address] [place] [address] Performed By: #### 5 7021-8 ####[facility] EMERGENCYJACOBYSofie [id number] [place] [address] [place] Platelets (Bld) [#/Vol] 357 10*3/uL Normal 150-400 [facility] Comment on above: Order Comment: Speci men Type: BLOOD SPECIMENOrdering Facility: [facility] Address: [address] [place] [address] Performed By: #### 5 7021-8 ####[facility] EMERGENCYNCLIA [id number] [place] [address] [place] RBC (Bld) [#/Vol] 3.89 10*6/uL Low 3.90-5.20 [facility] Comment on above: Order Comment: Speci men Type: BLOOD SPECIMENOrdering Facility: [facility] Address: [address] [place] [address] Performed By: #### 5 7021-8 ####[facility] MILLTOWNCLIA [id number] [place] [address] [place] WBC (Bld) [#/Vol] 7.33 10*3/uL Normal 3.70-11.00 [facility] Comment on above: Order Comment: Speci men Type: BLOOD SPECIMENOrdering Facility: [facility] Address: [address] [place] [address] Performed By: #### 5 7021-8 ####[facility] EMERGENCYNCA [id number] [place] [address] [place] CNOVSPon 01-30-2024 CNOVSP Normal [facility] Comprehensive metabolic 2000 panelon 01-30-2024 Albumin [Mass/Vol] 3.8 g/dL Low 3.9-4.9 [facility] Comment on above: Order Comment: Speci men Type: BLOOD SPECIMENOrdering Facility: [facility] Address: [address] [place] [address] Performed By: #### 2 4323-8 ####[facility] EMERGENCYNCLIA [id number] [place] [address] [place] ALP [Catalytic activity/Vol] 62 U/L Normal 34-123 [facility] Comment on above: Order Comment: Speci men Type: BLOOD SPECIMENOrdering Facility: [facility] Address: [address] [place] [address] Performed By: #### 2 4323-8 ####[facility] MILLTOWNCLIA [id number] [place] [address] [place] ALT [Catalytic activity/Vol] 12 U/L Normal 7-38 [facility] Comment on above: Order Comment: Speci men Type: BLOOD SPECIMENOrdering Facility: [facility] Address: [address] [place] [address] Performed By: #### 2 4323-8 ####[facility] BRIDGETPRUDENCIO DEVITOWNCLIA [id number] [place] [address] [place] Anion gap [Moles/Vol] 11 mmol/L Normal 8-15 [facility] Comment on above: Order Comment: Speci men Type: BLOOD SPECIMENOrdering Facility: [facility] Address: [address] [place] [address] Performed By: #### 2 4323-8 ####[facility] SHANDRATOWNCLIA [id number] [place] [address] [place] AST [Catalytic activity/Vol] 20 U/L Normal 13-35 [facility] Comment on above: Order Comment: Speci men Type: BLOOD SPECIMENOrdering Facility: [facility] Address: [address] [place] [address] Performed By: #### 2 4323-8 ####[facility] BRIDGET SHANDRAWNCLIA [id number] [place] [address] [place] Bilirubin [Mass/Vol] 0.4 mg/dL Normal 0.2-1.3 [facility] Comment on above: Order Comment: Speci men Type: BLOOD SPECIMENOrdering Facility: [facility] Address: [address] [place] [address] Performed By: #### 2 4323-8 ####[facility] MILLTOWNCLIA [id number] [place] [address] [place] Calcium [Mass/Vol] 9.4 mg/dL Normal 8.5-10.2 [facility] Comment on above: Order Comment: Speci men Type: BLOOD SPECIMENOrdering Facility: [facility] Address: [address] [place] [address] Performed By: #### 2 4323-8 ####[facility] MILLWNCLIA [id number] [place] [address] [place] Chloride [Moles/Vol] 101 mmol/L Normal 98-107 [facility] Comment on above: Order Comment: Speci men Type: BLOOD SPECIMENOrdering Facility: [facility] Address: [address] [place] [address] Performed By: #### 2 4323-8 ####[facility] [id number] [place] [address] [place] CO2 [Moles/Vol] 24 mmol/L Normal 22-30 [facility] Comment on above: Order Comment: Speci men Type: BLOOD SPECIMENOrdering Facility: [facility] Address: [address] [place] [address] Performed By: #### 2 4323-8 ####[facility] [id number] [place] [address] [place] Creatinine [Mass/Vol] 0.70 mg/dL Normal 0.58-0.96 [facility] Comment on above: Order Comment: Speci men Type: BLOOD SPECIMENOrdering Facility: [facility] Address: [address] [place] [address] Performed By: #### 2 4323-8 ####[facility] EMERGENCYNCLI [id number] [address] Creatinine and Glomerular filtration rate.predicted panel (S/P/Bld) 89 mL/min/1.73m??? Normal >=60 [facility] Comment on above: Order Comment: Speci men Type: BLOOD SPECIMENOrdering Facility: [facility] Address: [address] [place] [address] Result Comment: Rosana mated Glomerular Filtration Rate [...] actual GFR. Performed By: #### 2 4323-8 ####[facility] SHANDRATOWNCLIA [id number] [place] [address] [place] Glucose [Mass/Vol] 104 mg/dL High 74-99 [facility] Comment on above: Order Comment: Antwan rowland Type: BLOOD SPECIMENOrdering Facility: [facility] Address: [address] [place] [address] Result Comment: The [place] Diabetes Association (ADA) provides guidance for cutoff [...] Standards of Medical Care in Diabetes 2016, [place] Diabetes Association. Diabetes Care. 2016.39(Suppl 1). Performed By: #### 2 4323-8 ####[facility] SHANDRATOWNCLIA [id number] [place] [address] [place] Potassium [Moles/Vol] 4.6 mmol/L Normal 3.7-5.1 [facility] Comment on above: Order Comment: Antwan rowland Type: BLOOD SPECIMENOrdering Facility: [facility] Address: [address] [place] [address] Performed By: #### 2 4323-8 ####[facility] SHANDRAWNCLIA [id number] [place] [address] [place] Protein [Mass/Vol] 6.6 g/dL Normal 6.3-8.0 [facility] Comment on above: Order Comment: Speci men Type: BLOOD SPECIMENOrdering Facility: [facility] Address: [address] [place] [address] Performed By: #### 2 4323-8 ####[facility] SHANDRAESTHERVILLENCLENIN [id number] [place] [address] [place] Sodium [Moles/Vol] 136 mmol/L Normal 136-144 [facility] Comment on above: Order Comment: Speci men Type: BLOOD SPECIMENOrdering Facility: [facility] Address: [address] [place] [address] Performed By: #### 2 4323-8 ####[facility] EMERGENCYNCA [id number] [place] [address] [place] Urea nitrogen [Mass/Vol] 19 mg/dL Normal 7-21 [facility] Comment on above: Order Comment: Speci men Type: BLOOD SPECIMENOrdering Facility: [facility] Address: [address] [place] [address] Performed By: #### 2 4323-8 ####[facility]OSPITALL[facility] [id number] [place] [address] [place] CNPNon 01-19-2024 CNPN Normal [facility] CNPNon 01-07-2024 CNPN Normal [facility] Gastroenterology Visit Repor ton 01-06-2024 Gastroenterology Visit Report [facility] Gastroenterology [address] [place] [address] OFFICE VISIT Date of Service: 01/06/24 MR#: [id number] Acct: [id number] Name: MARIE BLIAR Rep #: [id number] : 1945 Provider: Agus Oden DO Age/Sex: 78/F Location: [facility] Status: Signed Intake Vital Signs 11/18/23 [...] you fallen in the past year?: No PFSH Medical History (Updated 01/06/24 @ 09:12 by [...] for an initial visit. She presented to [facility] with painful jaundice. She has been transferred to [facility] For the evaluation of right upper quadrant [...] to und (more content not included)... Normal [facility] CNOVSPon 01-05-2024 CNOVSP Normal [facility] CNOVon 12-26-2023 CNOV Normal [facility] CNPNon 12-26-2023 CNPN Normal [facility] CNPNon 12-19-2023 CNPN Normal [facility] Comprehensive metabolic 2000 panelon 12-17-2023 Albumin [Mass/Vol] 3.8 g/dL Low 3.9 - 4.9 g/dL [facility] ALP [Catalytic activity/Vol] 116 U/L 34 - 123 U/L [facility] ALT [Catalytic activity/Vol] 19 U/L 7 - 38 U/L [facility] Anion gap [Moles/Vol] 14 mmol/L 8 - 15 mmol/L [facility] AST [Catalytic activity/Vol] 26 U/L 13 - 35 U/L [facility] Bilirubin [Mass/Vol] 0.3 mg/dL 0.2 - 1 .3 mg/dL [facility] Calcium [Mass/Vol] 10.2 mg/dL 8.5 - 10. 2 mg/dL [facility] Chloride [Moles/Vol] 99 mmol/L 98 - 10 7 mmol/L [facility] CO2 [Moles/Vol] 25 mmol/L 22 - 30 mmol/L [facility] Creatinine [Mass/Vol] 0.68 mg/dL 0.58 - 0.96 mg/dL [facility] GFR/1.73 sq M.predicted among non-blacks MDRD (S/P/Bld) [Vol rate/Area] 89 mL/min/{1.73_m2} - PINF [facility] Comment on above: Estimated Glomerular Filtration Rate [...] 110 mg/dL High 74 - 99 mg/dL [facility] Comment on above: The [place] Diabete s Association (ADA) provides guidance for [...] Standards of Medical Care in Diabetes 2016, [place] Diabetes Association. Diabetes Care. 2016.39(Suppl 1). Interpretation and review of laboratory results Abnormal [facility] Potassium [Moles/Vol] 4.6 mmol/L 3.7 - 5.1 mmol/L [facility] Protein [Mass/Vol] 8.2 g/dL High 6.3 - 8.0 g/dL [facility] Sodium [Moles/Vol] 138 mmol/L 136 - 144 mmol/L [facility] Urea nitrogen [Mass/Vol] 15 mg/dL 7 - 21 mg/dL [facility] FERRITINon 12-17-2023 Ferritin [Mass/Vol] 483.0 ng/mL High 14.7 - 205.1 ng/mL [facility] FOLATE, SERUMon 12-17-2023 Folate [Mass/Vol] 7.7 ng/mL 4.7 - PINF ng/mL [facility] Ferritin [Mass/Vol]on 2023 Interpretation and review of laboratory results Abnormal [facility] Iron and Iron binding capaci ty panelon 12-17-2023 Interpretation and review of laboratory results Abnormal [facility] Iron [Mass/Vol] 29 ug/dL Low 41 - 186 ug/dL [facility] Iron binding capacity [Mass/Vol] 257 ug/dL 232 - 386 ug/dL [facility] Iron/TIBC [Molar ratio] 11.3 % Low 15.0 - 57.0 % [facility] No Panel Informationon 12-16 Interpretation and review of laboratory results Normal [facility] VITAMIN B12on 12-17-2023 Cobalamin (Vitamin B12) [Mass/Vol] 569 pg/mL 232 - 1245 pg/mL [facility] CBC W Auto Differential pane l (Bld)on 12-16-2023 Basophils (Bld) [#/Vol] 0.05 10*3/uL [facility] Basophils/100 WBC (Bld) 0.7 % [facility] Differential cell count method Nom (Bld) Auto [facility] Eosinophils (Bld) [#/Vol] 0.06 10*3/uL [facility] Eosinophils/100 WBC (Bld) 0.9 % [facility] Erythrocyte distribution width (RBC) [Ratio] 16.5 % High 11.5 - 15.0 % [facility] Hematocrit (Bld) [Volume fraction] 38.6 % 36.0 - 46.0 % [facility] Hemoglobin (Bld) [Mass/Vol] 11.9 g/dL 11.5 - 15.5 g/dL [facility] Immature granulocytes (Bld) [#/Vol] 0.03 10*3/uL NINF [facility] Immature granulocytes/100 WBC (Bld) 0.4 % [facility] Interpretation and review of laboratory results Abnormal [facility] Lymphocytes (Bld) [#/Vol] 2.22 10*3/uL [facility] Lymphocytes/100 WBC (Bld) 31.9 % [facility] MCH (RBC) [Entitic mass] 28.4 pg 26.0 - 34.0 pg [facility] MCHC (RBC) [Mass/Vol] 30.8 g/dL 30.5 - 36.0 g/dL [facility] MCV (RBC) [Entitic vol] 92.1 fL 80.0 - 100.0 fL [facility] Monocytes (Bld) [#/Vol] 0.93 10*3/uL High [facility] Monocytes/100 WBC (Bld) 13.4 % [facility] Neutrophils (Bld) [#/Vol] 3.67 10*3/uL [facility] Neutrophils/100 WBC (Bld) 52.7 % [facility] Nucleated RBC (Bld) [#/Vol] [facility] Nucleated RBC/100 WBC (Bld) [Ratio] 0.0 % /100 WBC [facility] Platelet mean volume (Bld) [Entitic vol] 10.1 fL 9.0 - 12.7 fL [facility] Platelets (Bld) [#/Vol] 697 10*3/uL High [facility] RBC (Bld) [#/Vol] 4.19 10*6/uL 3.90 - 5.20 m/uL [facility] WBC (Bld) [#/Vol] 6.96 10*3/uL [facility] Basophils (Bld) [#/Vol] 0.05 10*3/uL Normal <0.11 [facility] Comment on above: Order Comment: Speci men Type: BLOOD SPECIMENOrdering Facility: [facility] Address: [address] [place], [place] [address] Performed By: #### 5 7021-8 ####[facility] LABCLIA [id number] [place] [address] [place] Basophils/100 WBC (Bld) 0.7 % Normal [facility] Comment on above: Order Comment: Speci men Type: BLOOD SPECIMENOrdering Facility: [facility] Address: [address] [place] [address] Performed By: #### 5 7021-8 ####[facility] LABCLIA [id number] [place] [address] [place] Differential cell count method Nom (Bld) Auto Normal [facility] Comment on above: Order Comment: Speci men Type: BLOOD SPECIMENOrdering Facility: [facility] Address: [address] [place] [address] Performed By: #### 5 7021-8 ####[facility] LABCLIA [id number] [place] [address] [place] Eosinophils (Bld) [#/Vol] 0.06 10*3/uL Normal <0.46 [facility] Comment on above: Order Comment: Speci men Type: BLOOD SPECIMENOrdering Facility: [facility] Address: [address] [place] [address] Performed By: #### 5 7021-8 ####[facility] LABCLIA [id number] [place] [address] [place] Eosinophils/100 WBC (Bld) 0.9 % Normal [facility] Comment on above: Order Comment: Speci men Type: BLOOD SPECIMENOrdering Facility: [facility] Address: [address] [place] [address] Performed By: #### 5 7021-8 ####[facility] LABCLIA [id number] [place] [address] [place] Erythrocyte distribution width (RBC) [Ratio] 16.5 % High 11.5-15.0 [facility] Comment on above: Order Comment: Speci men Type: BLOOD SPECIMENOrdering Facility: [facility] Address: [address] [place] [address] Performed By: #### 5 7021-8 ####[facility] LABCLIA [id number] [place] [address] [place] Hematocrit (Bld) [Volume fraction] 38.6 % Normal 36.0-46.0 [facility] Comment on above: Order Comment: Speci men Type: BLOOD SPECIMENOrdering Facility: [facility] Address: [address] [place] [address] Performed By: #### 5 7021-8 ####[facility] LABCLIA [id number] [place] [address] [place] Hemoglobin (Bld) [Mass/Vol] 11.9 g/dL Normal 11.5-15.5 [facility] Comment on above: Order Comment: Speci men Type: BLOOD SPECIMENOrdering Facility: [facility] Address: [address] [place] [address] Performed By: #### 5 7021-8 ####[facility] LABCLIA [id number] [place] [address] [place] Immature granulocytes (Bld) [#/Vol] 0.03 10*3/uL Normal <0.10 [facility] Comment on above: Order Comment: Speci men Type: BLOOD SPECIMENOrdering Facility: [facility] Address: [address] [place] [address] Performed By: #### 5 7021-8 ####[facility] LABCLIA [id number] [place] [address] [place] Immature granulocytes/100 WBC (Bld) 0.4 % Normal [facility] Comment on above: Order Comment: Speci men Type: BLOOD SPECIMENOrdering Facility: [facility] Address: [address] [place] [address] Performed By: #### 5 7021-8 ####[facility] LABCLIA [id number] [place] [address] [place] Lymphocytes (Bld) [#/Vol] 2.22 10*3/uL Normal 1.00-4.00 [facility] Comment on above: Order Comment: Speci men Type: BLOOD SPECIMENOrdering Facility: [facility] Address: [address] [place] [address] Performed By: #### 5 7021-8 ####[facility] LABCLIA [id number] [place] [address] [place] Lymphocytes/100 WBC (Bld) 31.9 % Normal [facility] Comment on above: Order Comment: Speci men Type: BLOOD SPECIMENOrdering Facility: [facility] Address: [address] [place] [address] Performed By: #### 5 7021-8 ####[facility] LABIA [id number] [place] [address] [place] MCH (RBC) [Entitic mass] 28.4 pg Normal 26.0-34.0 [facility] Comment on above: Order Comment: Speci men Type: BLOOD SPECIMENOrdering Facility: [facility] Address: [address] [place] [address] Performed By: #### 5 7021-8 ####[facility] LABIA [id number] [place] [address] [place] MCHC (RBC) [Mass/Vol] 30.8 g/dL Normal 30.5-36.0 [facility] Comment on above: Order Comment: Speci men Type: BLOOD SPECIMENOrdering Facility: [facility] Address: [address] [place] [address] Performed By: #### 5 7021-8 ####[facility] LABIA [id number] [place] [address] [place] MCV (RBC) [Entitic vol] 92.1 fL Normal 80.0-100.0 [facility] Comment on above: Order Comment: Speci men Type: BLOOD SPECIMENOrdering Facility: [facility] Address: [address] [place] [address] Performed By: #### 5 7021-8 ####[facility] LABCLIA [id number] [place] [address] [place] Monocytes (Bld) [#/Vol] 0.93 10*3/uL High <0.87 [facility] Comment on above: Order Comment: Speci men Type: BLOOD SPECIMENOrdering Facility: [facility] Address: [address] [place] [address] Performed By: #### 5 7021-8 ####[facility] LABCLIA [id number] [place] [address] [place] Monocytes/100 WBC (Bld) 13.4 % Normal [facility] Comment on above: Order Comment: Speci men Type: BLOOD SPECIMENOrdering Facility: [facility] Address: [address] [place] [address] Performed By: #### 5 7021-8 ####[facility] LABCLIA [id number] [place] [address] [place] Neutrophils (Bld) [#/Vol] 3.67 10*3/uL Normal 1.45-7.50 [facility] Comment on above: Order Comment: Speci men Type: BLOOD SPECIMENOrdering Facility: [facility] Address: [address] [place] [address] Performed By: #### 5 7021-8 ####[facility] LABCLIA [id number] [place] [address] [place] Neutrophils/100 WBC (Bld) 52.7 % Normal [facility] Comment on above: Order Comment: Speci men Type: BLOOD SPECIMENOrdering Facility: [facility] Address: [address] [place] [address] Performed By: #### 5 7021-8 ####[facility] LABCLIA [id number] [place] [address] [place] Nucleated RBC (Bld) [#/Vol] 10*3/uL Normal <0.01 [facility] Comment on above: Order Comment: Speci men Type: BLOOD SPECIMENOrdering Facility: [facility] Address: [address] [place] [address] Performed By: #### 5 7021-8 ####[facility] LABCLIA [id number] [place] [address] [place] Nucleated RBC/100 WBC (Bld) [Ratio] 0.0 /100 WBC Normal [facility] Comment on above: Order Comment: Speci men Type: BLOOD SPECIMENOrdering Facility: [facility] Address: [address] [place] [address] Performed By: #### 5 7021-8 ####[facility] LABIA [id number] [place] [address] [place] Platelet mean volume (Bld) [Entitic vol] 10.1 fL Normal 9.0-12.7 [facility] Comment on above: Order Comment: Speci men Type: BLOOD SPECIMENOrdering Facility: [facility] Address: [address] [place] [address] Performed By: #### 5 7021-8 ####[facility] LABIA [id number] [place] [address] [place] Platelets (Bld) [#/Vol] 697 10*3/uL High 150-400 [facility] Comment on above: Order Comment: Speci men Type: BLOOD SPECIMENOrdering Facility: [facility] Address: [address] [place] [address] Performed By: #### 5 7021-8 ####[facility] LABIA [id number] [place] [address] [place] RBC (Bld) [#/Vol] 4.19 10*6/uL Normal 3.90-5.20 [facility] Comment on above: Order Comment: Speci men Type: BLOOD SPECIMENOrdering Facility: [facility] Address: [address] [place] [address] Performed By: #### 5 7021-8 ####[facility] LABCLIA [id number] [place] [address] [place] WBC (Bld) [#/Vol] 6.96 10*3/uL Normal 3.70-11.00 [facility] Comment on above: Order Comment: Speci men Type: BLOOD SPECIMENOrdering Facility: [facility] Address: [address] [place] [address] Performed By: #### 5 7021-8 ####[facility] LABCLIA [id number] [place] [address] [place] CNOVSPon 12-16-2023 CNOVSP Normal [facility] Comprehensive metabolic 2000 panelon 12-16-2023 Albumin [Mass/Vol] 3.8 g/dL Low 3.9-4.9 [facility] Comment on above: Order Comment: Speci men Type: BLOOD SPECIMENOrdering Facility: [facility] Address: [address] [place] [address] Performed By: #### 2 4323-8 ####[facility] LABCLIA [id number] [place] [address] [place] ALP [Catalytic activity/Vol] 116 U/L Normal 34-123 [facility] Comment on above: Order Comment: Speci men Type: BLOOD SPECIMENOrdering Facility: [facility] Address: [address] [place] [address] Performed By: #### 2 4323-8 ####[facility] LABCLIA [id number] [place] [address] [place] ALT [Catalytic activity/Vol] 19 U/L Normal 7-38 [facility] Comment on above: Order Comment: Speci men Type: BLOOD SPECIMENOrdering Facility: [facility] Address: [address] [place] [id number] Performed By: #### 2 4323-8 ####[facility] LABCLIA [id number] [place] [address] [place] Anion gap [Moles/Vol] 14 mmol/L Normal 8-15 [facility] Comment on above: Order Comment: Speci men Type: BLOOD SPECIMENOrdering Facility: [facility] Address: [address] [place] [address] Performed By: #### 2 4323-8 ####[facility] LABCLIA [id number] [place] [address] [place] AST [Catalytic activity/Vol] 26 U/L Normal 13-35 [facility] Comment on above: Order Comment: Speci men Type: BLOOD SPECIMENOrdering Facility: [facility] Address: [address] [place] [address] Performed By: #### 2 4323-8 ####[facility] LABCLIA [id number] [place] [address] [place] Bilirubin [Mass/Vol] 0.3 mg/dL Normal 0.2-1.3 [facility] Comment on above: Order Comment: Speci men Type: BLOOD SPECIMENOrdering Facility: [facility] Address: [address] [place], [place] [address] Performed By: #### 2 4323-8 ####[facility] LABCLIA [id number] [place] [address] [place] Calcium [Mass/Vol] 10.2 mg/dL Normal 8.5-10.2 [facility] Comment on above: Order Comment: Speci men Type: BLOOD SPECIMENOrdering Facility: [facility] Address: [address] [place], [place] [address] Performed By: #### 2 4323-8 ####[facility] LABCLIA [id number] [place] [address] [place] Chloride [Moles/Vol] 99 mmol/L Normal 98-107 [facility] Comment on above: Order Comment: Speci men Type: BLOOD SPECIMENOrdering Facility: [facility] Address: [address] [place] [address] Performed By: #### 2 4323-8 ####[facility] LABCLIA [id number] [place] [address] [place] CO2 [Moles/Vol] 25 mmol/L Normal 22-30 [facility] Comment on above: Order Comment: Speci men Type: BLOOD SPECIMENOrdering Facility: [facility] Address: [address] [place] [address] Performed By: #### 2 4323-8 ####[facility] LABCLIA [id number] [place] [address] [place] Creatinine [Mass/Vol] 0.68 mg/dL Normal 0.58-0.96 [facility] Comment on above: Order Comment: Speci men Type: BLOOD SPECIMENOrdering Facility: [facility] Address: [address] [place] [address] Performed By: #### 2 4323-8 ####[facility] LABIA [id number] [address] [place] Creatinine and Glomerular filtration rate.predicted panel (S/P/Bld) 89 mL/min/1.73m??? Normal >=60 [facility] Comment on above: Order Comment: Speci men Type: BLOOD SPECIMENOrdering Facility: [facility] Address: [address] [place] [address] Result Comment: Rosaan mated Glomerular Filtration Rate [...] actual GFR. Performed By: #### 2 4323-8 ####[facility] LABIA [id number] [place] [address] [place] Glucose [Mass/Vol] 110 mg/dL High 74-99 [facility] Comment on above: Order Comment: Speci men Type: BLOOD SPECIMENOrdering Facility: [facility] Address: [address] [place] [address] Result Comment: The [place] Diabetes Association (ADA) provides guidance for cutoff [...] Standards of Medical Care in Diabetes 2016, [place] Diabetes Association. Diabetes Care. 2016.39(Suppl 1). Performed By: #### 2 4323-8 ####[facility] LABIA [id number] [place] [address] [place] Potassium [Moles/Vol] 4.6 mmol/L Normal 3.7-5.1 [facility] Comment on above: Order Comment: Speci men Type: BLOOD SPECIMENOrdering Facility: [facility] Address: [address] [place] [address] Performed By: #### 2 4323-8 ####[facility] [id number] [place] [address] [place] Protein [Mass/Vol] 8.2 g/dL High 6.3-8.0 [facility] Comment on above: Order Comment: Speci men Type: BLOOD SPECIMENOrdering Facility: [facility] Address: [address] [place] [address] Performed By: #### 2 4323-8 ####[facility] LABCLIA [id number] [place] [address] [place] Sodium [Moles/Vol] 138 mmol/L Normal 136-144 [facility] Comment on above: Order Comment: Speci men Type: BLOOD SPECIMENOrdering Facility: [facility] Address: [address] [place] [address] Performed By: #### 2 4323-8 ####[facility] LABCLIA [id number] [place] [address] [place] Urea nitrogen [Mass/Vol] 15 mg/dL Normal 7-21 [facility] Comment on above: Order Comment: Speci men Type: BLOOD SPECIMENOrdering Facility: [facility] Address: [address] [place] [address] Performed By: #### 2 4323-8 ####[facility] LABIA [id number] [place] [address] [place] DPYD/UGT1A1 GENOTYPING PANEL on 12-16-2023 DPYD/UGT1A1 GENOTYPING PANEL RESULT Normal [facility] Comment on above: Order Comment: Speci men Type: BLOOD SPECIMENOrdering Facility: [facility] Address: [address] [place] [address] Result Comment: [facility] [employer]™ Interactive (PGx) DPYD and UGT1A1 GenotypingLaboratory Accession Number: [id number] Genotype: *1/*1DPYD Activity Score: 2DPYD Predicted Phenotype: DPYD Normal ErnafsagqxxSZC7N1 Genotype: *1/*80+*71TWQ5Q9 Predicted Phenotype: UGT1A1 Intermediate MetabolizerInterpretation:Two normal function [...] isassociated with a UGT1A1 intermediate metabolizer phenotype. VXQ3S4buufpxyzplie metabolizers are not expected to require (based onpharmacogenomic results alone) selective adjustment of the dose ofmedications metabolized by UGT. Please consult a clinical pharmacistfor more information regarding drug therapy. Questions regardingmolecular testing details should be directed .The DPYD gene encodes dihydropyrimidine dehydrogenase (DPD). Thisenzyme is involved in the metabolism of fluoropyrimidines. The ARZ2L8mrvz encodes UDP-glucuronosyltransferase (UGT). UGT is involved in [...] lists the variantsinterrogated by this test.DPYD Variant Details:[id number] Variant Details:UGT1A1 [id number], c.-346C>T, g.693252690H>T; (legacy name 80), [id number], c.-41_-40dupTA g.[id number]; (legacy name 28)DPYD Additional Information:In addition to increased risk of 5-fluorouracil toxicity, variants inthe DPYD gene may be associated with DPD deficiency, an autosomalrecessive inborn error of metabolism (OMIM: 106038). DPD deficiencyexhibits a wide range of phenotypic [...] list below) in the DPYD gene (OMIM 978372) yvdITX1Q3 gene (OMIM 208979). This test does not detect all sequencevariants [...] orabsence of the following variants, RefSNP ID: [id number], [id number] (TA repeats), and [id number].DPYD star alleles and targeted variants:RefSNP ID Legacy Total Allele Highest Allele Name Frequency Frequency General Population (Population)No variantdetected *[id number] *2A 0.6% 2.4% (Eur F)[id number] *8 0.01% 0.03% (S )[id number] *10 n/ghx79831677 *12 0.0008% 0.003% (S )[id number] *13 0.03% 0.06% (Eur F)[id number] Y186C 0.2% 2.15% ()[id number] c.2846A>T 0.3% 0.5% (Eur NF)[id number] HapB3 1.4% 2.1 % (Eur NF)[id number] HapB3(c.1236G>A) 1.4% 2.1% (Eur NF)Population frequencies are from gnomAD and may be different inspecific ethnic groups. The allele frequency shown is the total allelefrequency in all populations. The highest allele frequency for asingle population is also noted (Eur F = Mosoth[place], Eur NF = non-Mosotho, S = South ). Note: [id number] (HapB3)and [id number] (c.1236G>A) are in linkage disequilibrium thus aretypically seen together.References:1) Clinical Pharmacogenetics Implementation Consortium (CPIC):www.CPICpgx.org2) Pharmacogene Variation Consortium (PharmVar): www.PharmVar.org3) Genome Aggregation Database V2.1.1 (gnomAD), accessed March2021, https://gnomad.broadinstitute.org4) Yuri-Sae M, Keenan EM, Pritchard JM, et al. PharmacogenomicsKnowledge for Personalized Medicine Clinical Pharmacology andTherapeutics (2012) 92(4): 414-417.5) Valente U, [place] WILKES, Nusrat SM, et al. Clinical PharmacogeneticsImplementation Consortium (CPIC) Guideline for DihydropyrimidineDehydrogenase Genotype and Fluoropyrimidine Dosin Update. ClinPharmacol Ther. 2018;103(2):210-216.6) MedlineSixteen Eighteen Design, ExtendEvent Library of Medicine 2020. Dihydropyrimidinedehydrogenase deficiency, accessed 17 October 2020,https://medlineplus.gov/genetics/condition/dihydropyrimidin j-vlnjygycztqjd-dlkuxhfsid/#resources7) Chandni N, Davin CASAS, Renate RCM, jayden Izquierdo ABP. Purine andPyrimidine Metabolism: Pyrimidine Metabolism: DihydropyrimidineDehydrogenase. Augusto and Fabiola's Principles and Practice of MedicalGenetics and Genomics: Metabolic Disorders, Seventh Edition. Edited byJASMYNE Hdz et al, Elsevier. 2020. Sections 6.3.4 - 6.3.4.4https://fls-xsdphumwoxp-tzy.ccmain.[facility].org/#!/content /book/3-s2.0-[email or web address]?[email or web address]) Janette RS, Aixa MH, Cali CE, et al. Clinical PharmacogeneticsImplementation Consortium (CPIC) Guideline for UGT1A1 and AtazanavirPrescribing. Clinical Pharmacology and Therapeutics (2016) Apr;99(4):363-9.9) D, Kushal MJ. Overview of Glibert's syndrome. Drug TherBull. 2019 May 57(2):27-30.10) [facility] 2020, Gilbert Syndrome, accessed 17 October 2020,https://my.[email or web address].[email or web address]/health/diseases/49129-gykisq ts-syndromeDisclaimer:This test was developed and its performance characteristics determinedby [facility]'s Pathology and Laboratory Medicine Department. Ithas not been cleared or approved by the FDA. [facility] is regulated under CLIAas certified to perform high-complexity testing. This test is used forclinical purposes. It should not be regarded as investigational or forresearch.Testing [place] [address]. CLIA Number: [id number] reviewed by Rohini Kraft MD Performed By: #### D UPNL1 ####[facility] [id number] [place] [address] [place] Ferritin SerPl-ncon 2023 Ferritin [Mass/Vol] 483.0 ng/mL High 14.7-205.1 [facility] [facility] Comment on above: Order Comment: Speci men Type: BLOOD SPECIMENOrdering Facility: [facility] Address: [address] [place] [address] Performed By: #### 2 132-9, 2276-4, 2284-8, 99737-0 ####[facility] LABCLIA [id number] [place] [address] [place] Folate SerPl-mCncon 12-16-19 Folate [Mass/Vol] 7.7 ng/mL Normal >4.7 [facility] Comment on above: Order Comment: Speci men Type: BLOOD SPECIMENOrdering Facility: [facility] Address: [address] [place] [address] Performed By: #### 2 132-9, 2276-4, 2284-8, 79756-9 ####[facility] LABIA [id number] [place] [address] [place] HBV core Ab Ser Qlon 024 HBV core Ab Ql (S) Negative Normal Negative [facility] Comment on above: Order Comment: Speci [facility] Type: BLOOD SPECIMENOrdering Facility: [facility] Address: [address] [place] [address] Result Comment: No e vidence of current or past infection with Hepatitis B virus. Should recent infection be suspected, repeat testing may be considered 3-4 weeks after this draw. Performed By: #### 1 6933-4, 5195-3, 54742-2 ####[facility] LABCLIA [id number] [place] [address] [place] HBV surface Ab Ql (S)on 11-29 HBV surface Ab Qn (S) <8.00 Normal [facility] Comment on above: Order Comment: Speci men Type: BLOOD SPECIMENOrdering Facility: [facility] Address: [address] [place] [address] Result Comment: <8 m IU/mL: No serological evidence of immunity to Hepatitis B Virus.>/= 8 to <12 mIU/mL: No serological evidence of immunity to Hepatitis B Virus.>/= 12 mIU/mL: Consistent with serological evidence of immunity to Hepatitis B Virus. Performed By: #### 1 6933-4, 5195-3, 06442-7 ####[facility] LABCLIA [id number] [place] [address] [place] HBV surface Ab Ser Qlon 11-29 HBV surface Ab Ql (S) Negative Normal [facility] Comment on above: Order Comment: Speci men Type: BLOOD SPECIMENOrdering Facility: [facility] Address: [address] [place] [address] Result Comment: No s erological evidence of immunity to Hepatitis B Virus. Performed By: #### 1 6933-4, 5195-3, 16567-2 ####[facility] LABIA [id number] [place] [address] [place] HBV surface Ag Ser Qlon 11-29 HBV surface Ag Ql (S) Negative Normal Negative [facility] Comment on above: Order Comment: Speci men Type: BLOOD SPECIMENOrdering Facility: [facility] Address: [address] [place] [address] Performed By: #### 1 6933-4, 5195-3, 07848-9 ####[facility] LABIA [id number] [place] [address] [place] HCV Ab Ser Qlon 12-16-2023 HCV Ab Ql (S) Negative Normal Negative [facility] Comment on above: Order Comment: Speci men Type: BLOOD SPECIMENOrdering Facility: [facility] Address: [address] [place] [address] Result Comment: The result suggests no evidence of active infection with Hepatitis C virus. Should recent infection be suspected, repeat testing may be considered 4-6 weeks after this draw. Performed By: #### 1 6128-1 ####[facility] LABIA [id number] [place] [address] [place] Iron and Iron binding capaci ty panelon 12-16-2023 Iron [Mass/Vol] 29 ug/dL Low 41-186 [facility] Comment on above: Order Comment: Speci men Type: BLOOD SPECIMENOrdering Facility: [facility] Address: [address] [place] [address] Performed By: #### 2 132-9, 2276-4, 2284-8, 37452-9 ####[facility] [id number] [place] [address] [place] Iron binding capacity [Mass/Vol] 257 ug/dL Normal 232-386 [facility] Comment on above: Order Comment: Speci men Type: BLOOD SPECIMENOrdering Facility: [facility] Address: [address] [place] [address] Performed By: #### 2 132-9, 2276-4, 2284-8, 67868-1 ####[facility] [id number] [place] [address] [place] Iron/TIBC [Molar ratio] 11.3 % Low 15.0-57.0 [facility] Comment on above: Order Comment: Speci men Type: BLOOD SPECIMENOrdering Facility: [facility] Address: [address] [place] [address] Performed By: #### 2 132-9, 2276-4, 2284-8, 80750-2 ####[facility] LABIA [id number] [place] [address] [place] Vit B12 SerPl-ncon 024 Cobalamin (Vitamin B12) [Mass/Vol] 569 pg/mL Normal 232-1245 [facility] Comment on above: Order Comment: Speci men Type: BLOOD SPECIMENOrdering Facility: [facility] Address: [address] [place] [address] Performed By: #### 2 132-9, 2276-4, 2284-8, 83673-5 ####[facility] LABCLIA [id number] [place] [address] [place] CNOVon 12-15-2023 CNOV Normal [facility] CBC panel Auto (Bld)on 12-05 Erythrocyte distribution width (RBC) [Ratio] 15.2 % High 11.5-15.0 [facility] Comment on above: Order Comment: Speci men Type: BLOOD SPECIMENOrdering Facility: [facility] Address: [address] [place] [address] Performed By: #### 5 8410-2 ####[facility] LABORATORYCLIA [id number] [address] [place] Hematocrit (Bld) [Volume fraction] 25.4 % Low 36.0-46.0 [facility] Comment on above: Order Comment: Speci men Type: BLOOD SPECIMENOrdering Facility: [facility] Address: [address] [place] [address] Performed By: #### 5 8410-2 ####[facility] LABORATORYCLIA [id number] [address] [place] Hemoglobin (Bld) [Mass/Vol] 8.5 g/dL Low 11.5-15.5 [facility] Comment on above: Order Comment: Speci men Type: BLOOD SPECIMENOrdering Facility: [facility] Address: [address] [place] [address] Performed By: #### 5 8410-2 ####[facility] LABORATORYCLIA [id number] [address] [place] MCH (RBC) [Entitic mass] 29.3 pg Normal 26.0-34.0 [facility] Comment on above: Order Comment: Speci men Type: BLOOD SPECIMENOrdering Facility: [facility] Address: [address] [place] [address] Performed By: #### 5 8410-2 ####[facility] LABORATORYCLIA [id number] [address] STATES [facility] MCHC (RBC) [Mass/Vol] 33.5 g/dL Normal 30.5-36.0 [facility] Comment on above: Order Comment: Speci men Type: BLOOD SPECIMENOrdering Facility: [facility] Address: [address] [place] [address] Performed By: #### 5 8410-2 ####[facility] LABORATORYCLIA [id number] [address] [place] MCV (RBC) [Entitic vol] 87.6 fL Normal 80.0-100.0 [facility] Comment on above: Order Comment: Speci men Type: BLOOD SPECIMENOrdering Facility: [facility] Address: [address] [place] [address] Performed By: #### 5 8410-2 ####[facility] LABORATORYCLIA [id number] [address] [place] Nucleated RBC (Bld) [#/Vol] 10*3/uL Normal <0.01 [facility] Comment on above: Order Comment: Speci men Type: BLOOD SPECIMENOrdering Facility: [facility] Address: [address] [place] [address] Performed By: #### 5 8410-2 ####[facility] LABORATORYCLIA [id number] [address] [place] Platelet mean volume (Bld) [Entitic vol] 9.1 fL Normal 9.0-12.7 [facility] Comment on above: Order Comment: Speci men Type: BLOOD SPECIMENOrdering Facility: [facility] Address: [address] [place] [address] Performed By: #### 5 8410-2 ####[facility] LABORATORYCLIA [id number] [address] [place] Platelets (Bld) [#/Vol] 656 10*3/uL High 150-400 [facility] Comment on above: Order Comment: Speci men Type: BLOOD SPECIMENOrdering Facility: [facility] Address: [address] [place] [address] Performed By: #### 5 8410-2 ####[facility] LABORATORYCLIA [id number] [place] [address] [place] [facility] RBC (Bld) [#/Vol] 2.90 10*6/uL Low 3.90-5.20 [facility] Comment on above: Order Comment: Speci men Type: BLOOD SPECIMENOrdering Facility: [facility] Address: [address] [place] [address] Performed By: #### 5 8410-2 ####[facility] LABORATORYCLIA [id number] [address] STATES OF [facility] WBC (Bld) [#/Vol] 15.32 10*3/uL High 3.70-11.00 [facility] Comment on above: Order Comment: Speci men Type: BLOOD SPECIMENOrdering Facility: [facility] Address: [address] [place] [address] Performed By: #### 5 8410-2 ####[facility] LABORATORYCLIA [id number] [address] [place] CNDSon 12-06-2023 CNDS Normal [facility] Comprehensive metabolic 2000 panelon 12-06-2023 Albumin [Mass/Vol] 2.8 g/dL Low 3.9-4.9 [facility] Comment on above: Order Comment: Speci men Type: BLOOD SPECIMENOrdering Facility: [facility] Address: [address] [place] [address] Performed By: #### 2 4323-8 ####[facility] LABORATORYCLIA [id number] [address] OF [facility] ALP [Catalytic activity/Vol] 140 U/L High 34-123 [facility] Comment on above: Order Comment: Speci men Type: BLOOD SPECIMENOrdering Facility: [facility] Address: [address] [place] [address] Performed By: #### 2 4323-8 ####[facility]ORATORYCLIA [id number] [place] [address] [place] ALT With P-5'-P [Catalytic activity/Vol] 33 U/L Normal 7-38 [facility] Comment on above: Order Comment: Speci men Type: BLOOD SPECIMENOrdering Facility: [facility] Address: [address] [place] [address] Performed By: #### 2 4323-8 ####[facility] LABORATORYCLIA [id number] [place] [address] [place] Anion gap [Moles/Vol] 11 mmol/L Normal 8-15 [facility] Comment on above: Order Comment: Speci men Type: BLOOD SPECIMENOrdering Facility: [facility] Address: [address] [place] [address] Performed By: #### 2 4323-8 ####[facility] LABORATORYCLIA [id number] [place] [address] [place] AST With P-5'-P [Catalytic activity/Vol] 15 U/L Normal 13-35 [facility] Comment on above: Order Comment: Speci men Type: BLOOD SPECIMENOrdering Facility: [facility] Address: [address] [place] [address] Performed By: #### 2 4323-8 ####[facility] LABORATORYCLIA [id number] [place] [address] [place] Bilirubin [Mass/Vol] 0.3 mg/dL Normal 0.2-1.3 [facility] Comment on above: Order Comment: Speci men Type: BLOOD SPECIMENOrdering Facility: [facility] Address: [address] [place] [address] Performed By: #### 2 4323-8 ####[facility] LABORATORYCLIA [id number] [address] [place] Calcium [Mass/Vol] 8.5 mg/dL Normal 8.5-10.2 [facility] Comment on above: Order Comment: Speci men Type: BLOOD SPECIMENOrdering Facility: [facility] Address: [facility] [place] [address] Performed By: #### 2 4323-8 ####[facility] LABORATORYCLIA [id number] [address] OF [facility] Chloride [Moles/Vol] 102 mmol/L Normal 98-107 [facility] Comment on above: Order Comment: Speci men Type: BLOOD SPECIMENOrdering Facility: [facility] Address: [address] [place] [address] Performed By: #### 2 4323-8 ####[facility] LABORATORYCLIA [id number] [address] OF [facility] CO2 [Moles/Vol] 27 mmol/L Normal 22-30 [facility] Comment on above: Order Comment: Speci men Type: BLOOD SPECIMENOrdering Facility: [facility] Address: [address] [place] [address] Performed By: #### 2 4323-8 ####[facility] LABORATORYCLIA [id number] [address] OF [facility] Creatinine [Mass/Vol] 0.65 mg/dL Normal 0.58-0.96 [facility] Comment on above: Order Comment: Speci men Type: BLOOD SPECIMENOrdering Facility: [facility] Address: [address] [place] [address] Performed By: #### 2 4323-8 ####[facility] LABORATORYCLIA [id number] [address] Creatinine and Glomerular filtration rate.predicted panel (S/P/Bld) 90 mL/min/1.73m??? Normal >=60 [facility] Comment on above: Order Comment: Speci men Type: BLOOD SPECIMENOrdering Facility: [facility] Address: [address] [place] [address] Result Comment: Rosana mated Glomerular Filtration Rate [...] actual GFR. Performed By: #### 2 4323-8 ####[facility] LABORATORYCLIA [id number] [place] [address] [place] Glucose [Mass/Vol] 111 mg/dL High 74-99 [facility] Comment on above: Order Comment: Antwan rowland Type: BLOOD SPECIMENOrdering Facility: [facility] Address: [address] [place] [address] Result Comment: The [place] Diabetes Association (ADA) provides guidance for cutoff [...] Standards of Medical Care in Diabetes 2016, [place] Diabetes Association. Diabetes Care. 2016.39(Suppl 1). Performed By: #### 2 4323-8 ####[facility] LABORATORYCLIA [id number] [place] [address] [place] Potassium [Moles/Vol] 4.2 mmol/L Normal 3.7-5.1 [facility] Comment on above: Order Comment: Antwan rowland Type: BLOOD SPECIMENOrdering Facility: [facility] Address: [address] [place] [address] Performed By: #### 2 4323-8 ####[facility] LABORATORYCLIA [id number] [place] [id number] [place] Protein [Mass/Vol] 6.0 g/dL Low 6.3-8.0 [facility] Comment on above: Order Comment: Antwan rowland Type: BLOOD SPECIMENOrdering Facility: [facility] Address: [address] [place] [address] Performed By: #### 2 4323-8 ####[facility] LABORATORYCLIA [id number] [address] [place] Sodium [Moles/Vol] 140 mmol/L Normal 136-144 [facility] Comment on above: Order Comment: Speci men Type: BLOOD SPECIMENOrdering Facility: [facility] Address: [address] [place] [address] Performed By: #### 2 4323-8 ####[facility] LABORATORYCLIA [id number] [address] STATES [facility] Urea nitrogen [Mass/Vol] 8 mg/dL Normal 7-21 [facility] Comment on above: Order Comment: Speci men Type: BLOOD SPECIMENOrdering Facility: [facility] Address: [address] [place] [address] Performed By: #### 2 4323-8 ####[facility] LABORATORYCLIA [id number] [address] BRIEF OP NOTon 12-05-2023 BRIEF OP NOT Normal [facility] CASE MANAGEMon 12-05-2023 CASE MANAGEM Normal [facility] CASE MANAGEM Normal [facility] CBC panel Auto (Bld)on 12-04 Erythrocyte distribution width (RBC) [Ratio] 15.2 % High 11.5-15.0 [facility] Comment on above: Order Comment: Speci men Type: BLOOD SPECIMENOrdering Facility: [facility] Address: [address] [place] [address] Performed By: #### 5 8410-2 ####[facility] LABORATORYCLIA [id number] [address] [place] Hematocrit (Bld) [Volume fraction] 23.6 % Low 36.0-46.0 [facility] Comment on above: Order Comment: Speci men Type: BLOOD SPECIMENOrdering Facility: [facility] Address: [address] [place] [address] Performed By: #### 5 8410-2 ####[facility] LABORATORYCLIA [id number] [address] [place] Hemoglobin (Bld) [Mass/Vol] 7.7 g/dL Low 11.5-15.5 [facility] Comment on above: Order Comment: Speci men Type: BLOOD SPECIMENOrdering Facility: [facility] Address: [address] [place] [address] Performed By: #### 5 8410-2 ####[facility] LABORATORYCLIA [id number] [address] MCH (RBC) [Entitic mass] 28.6 pg Normal 26.0-34.0 [facility] Comment on above: Order Comment: Speci men Type: BLOOD SPECIMENOrdering Facility: [facility] Address: [address] [place] [address] Performed By: #### 5 8410-2 ####[facility] LABORATORYCLIA [id number] [address] MCHC (RBC) [Mass/Vol] 32.6 g/dL Normal 30.5-36.0 [facility] Comment on above: Order Comment: Speci men Type: BLOOD SPECIMENOrdering Facility: [facility] Address: [address] [place] [address] Performed By: #### 5 8410-2 ####[facility] LABORATORYCLIA [id number] [address] MCV (RBC) [Entitic vol] 87.7 fL Normal 80.0-100.0 [facility] Comment on above: Order Comment: Speci men Type: BLOOD SPECIMENOrdering Facility: [facility] Address: [address] [place] [address] Performed By: #### 5 8410-2 ####[facility] LABORATORYCLIA [id number] [address] Nucleated RBC (Bld) [#/Vol] 10*3/uL Normal <0.01 [facility] Comment on above: Order Comment: Speci men Type: BLOOD SPECIMENOrdering Facility: [facility] Address: [address] [place] [address] Performed By: #### 5 8410-2 ####[facility] LABORATORYCLIA [id number] [address] OF [place] Platelet mean volume (Bld) [Entitic vol] 9.1 fL Normal 9.0-12.7 [facility] Comment on above: Order Comment: Speci men Type: BLOOD SPECIMENOrdering Facility: [facility] Address: [address] [place] [address] Performed By: #### 5 8410-2 ####[facility] LABORATORYCLIA [id number] [address] OF [place] Platelets (Bld) [#/Vol] 549 10*3/uL High 150-400 [facility] Comment on above: Order Comment: Speci men Type: BLOOD SPECIMENOrdering Facility: [facility] Address: [address] [place] [address] Performed By: #### 5 8410-2 ####[facility] LABORATORYCLIA [id number] [address] [place] RBC (Bld) [#/Vol] 2.69 10*6/uL Low 3.90-5.20 [facility] Comment on above: Order Comment: Speci men Type: BLOOD SPECIMENOrdering Facility: [facility] Address: [address] [place] [address] Performed By: #### 5 8410-2 ####[facility] LABORATORYCLIA [id number] [address] [place] WBC (Bld) [#/Vol] 14.87 10*3/uL High 3.70-11.00 [facility] Comment on above: Order Comment: Speci men Type: BLOOD SPECIMENOrdering Facility: [facility] Address: [address] [place] [address] Performed By: #### 5 8410-2 ####[facility] LABORATORYCLIA [id number] [address] OF [place] CT ABD/PEL WO IVCONon 2023 CT ABD/PEL WO IVCON Normal [facility] Comprehensive metabolic 2000 panelon 12-05-2023 Albumin [Mass/Vol] 2.5 g/dL Low 3.9-4.9 [facility] Comment on above: Order Comment: Speci men Type: BLOOD SPECIMENOrdering Facility: [facility] Address: [address] [place] [address] Performed By: #### 2 4323-8 ####[facility] LABORATORYCLIA [id number] [place] [address] [place] ALP [Catalytic activity/Vol] 146 U/L High 34-123 [facility] Comment on above: Order Comment: Speci men Type: BLOOD SPECIMENOrdering Facility: [facility] Address: [address] [place] [address] Performed By: #### 2 4323-8 ####[facility] LABORATORYCLIA [id number] [address] STATES OF [facility] ALT With P-5'-P [Catalytic activity/Vol] 39 U/L High 7-38 [facility] Comment on above: Order Comment: Speci men Type: BLOOD SPECIMENOrdering Facility: [facility] Address: [address] [place] [address] Performed By: #### 2 4323-8 ####[facility] LABORATORYCLIA [id number] [address] [place] Anion gap [Moles/Vol] 8 mmol/L Normal 8-15 [facility] Comment on above: Order Comment: Speci men Type: BLOOD SPECIMENOrdering Facility: [facility] Address: [address] [place] [address] Performed By: #### 2 4323-8 ####[facility] LABORATORYCLIA [id number] [address] [place] AST With P-5'-P [Catalytic activity/Vol] 18 U/L Normal 13-35 [facility] Comment on above: Order Comment: Speci men Type: BLOOD SPECIMENOrdering Facility: [facility] Address: [address] [place] [address] Performed By: #### 2 4323-8 ####[facility]ORATORYCLIA [id number] [place] [address] [place] Bilirubin [Mass/Vol] 0.2 mg/dL Normal 0.2-1.3 [facility] Comment on above: Order Comment: Speci men Type: BLOOD SPECIMENOrdering Facility: [facility] Address: [address] [place] [address] Performed By: #### 2 4323-8 ####[facility]ORATORYCLIA [id number] [place] [address] [place] Calcium [Mass/Vol] 8.4 mg/dL Low 8.5-10.2 [facility] Comment on above: Order Comment: Speci men Type: BLOOD SPECIMENOrdering Facility: [facility] Address: [address] [place] [address] Performed By: #### 2 4323-8 ####[facility] LABORATORYCLIA [id number] [place] [address] [place] Chloride [Moles/Vol] 97 mmol/L Low 98-107 [facility] Comment on above: Order Comment: Speci men Type: BLOOD SPECIMENOrdering Facility: [facility] Address: [address] [place] [address] Performed By: #### 2 4323-8 ####[facility] LABORATORYCLIA [id number] [place] [address] [place] CO2 [Moles/Vol] 28 mmol/L Normal 22-30 [facility] Comment on above: Order Comment: Speci men Type: BLOOD SPECIMENOrdering Facility: [facility] Address: [address] [place] [address] Performed By: #### 2 4323-8 ####[facility] LABORATORYCLIA [id number] [address] [place] Creatinine [Mass/Vol] 0.67 mg/dL Normal 0.58-0.96 [facility] Comment on above: Order Comment: Speci men Type: BLOOD SPECIMENOrdering Facility: [facility] Address: [address] [place] [address] Performed By: #### 2 4323-8 ####[facility]CL[facility] [id number] [place] [id number] [place] Creatinine and Glomerular filtration rate.predicted panel (S/P/Bld) 90 mL/min/1.73m??? Normal >=60 [facility] Comment on above: Order Comment: Antwan rowland Type: BLOOD SPECIMENOrdering Facility: [facility] Address: [address] [place] [address] Result Comment: Rosana mated Glomerular Filtration Rate [...] actual GFR. Performed By: #### 2 4323-8 ####[facility] HOSPITALIA [id number] [place] [id number] [place] Glucose [Mass/Vol] 120 mg/dL High 74-99 [facility] Comment on above: Order Comment: Antwan rowland Type: BLOOD SPECIMENOrdering Facility: [facility] Address: [address] [place] [address] Result Comment: The [place] Diabetes Association (ADA) provides guidance for cutoff [...] Standards of Medical Care in Diabetes 2016, [place] Diabetes [employer]. Diabetes Care. 2016.39(Suppl 1). Performed By: #### 2 4323-8 ####[facility] LABORATORYIA [id number] [address] [place] Potassium [Moles/Vol] 3.8 mmol/L Normal 3.7-5.1 [facility] Comment on above: Order Comment: Speci men Type: BLOOD SPECIMENOrdering Facility: [facility] Address: [address] [place] [address] Performed By: #### 2 4323-8 ####[facility]ORATORYCLIA [id number] [place] [address] [place] Protein [Mass/Vol] 5.4 g/dL Low 6.3-8.0 [facility] Comment on above: Order Comment: Speci men Type: BLOOD SPECIMENOrdering Facility: [facility] Address: [address] [place] [address] Performed By: #### 2 4323-8 ####[facility] LABORATORYCLIA [id number] [address] [place] Sodium [Moles/Vol] 133 mmol/L Low 136-144 [facility] Comment on above: Order Comment: Speci men Type: BLOOD SPECIMENOrdering Facility: [facility] Address: [address] [place] [address] Performed By: #### 2 4323-8 ####[facility] LABORATORYCLIA [id number] [address] [place] Urea nitrogen [Mass/Vol] 11 mg/dL Normal 7-21 [facility] Comment on above: Order Comment: Speci men Type: BLOOD SPECIMENOrdering Facility: [facility] Address: [address] [place] [address] Performed By: #### 2 4323-8 ####[facility] LABORATORYCLIA [id number] [address] [place] IR INJ FOR ASSESSMENT MIRTHA Cortez ATHon 12-05-2023 IR INJ FOR ASSESSMENT MIRTHA DE Normal [facility] THERAPY NTon 12-05-2023 THERAPY NT Normal [facility] XR ABDOMEN 1V SUPINEon 12-04 XR ABDOMEN 1V SUPINE Normal [facility] CASE MANAGEMon 12-04-2023 CASE MANAGEM Normal [facility] CASE MANAGEM Normal [facility] CBC panel Auto (Bld)on 12-03 Erythrocyte distribution width (RBC) [Ratio] 15.4 % High 11.5-15.0 [facility] Comment on above: Order Comment: Speci men Type: BLOOD SPECIMENOrdering Facility: [facility] Address: [address] [place] [address] Performed By: #### 5 8410-2 ####[facility] LABORATORYCLIA [id number] [address] STATES OF [facility] Hematocrit (Bld) [Volume fraction] 28.0 % Low 36.0-46.0 [facility] Comment on above: Order Comment: Speci men Type: BLOOD SPECIMENOrdering Facility: [facility] Address: [address] [place] [address] Performed By: #### 5 8410-2 ####[facility] LABORATORYCLIA [id number] [address] STATES OF [facility] Hemoglobin (Bld) [Mass/Vol] 8.9 g/dL Low 11.5-15.5 [facility] Comment on above: Order Comment: Speci men Type: BLOOD SPECIMENOrdering Facility: [facility] Address: [address] [place] [address] Performed By: #### 5 8410-2 ####[facility] LABORATORYCLIA [id number] [address] [place] MCH (RBC) [Entitic mass] 28.4 pg Normal 26.0-34.0 [facility] Comment on above: Order Comment: Speci men Type: BLOOD SPECIMENOrdering Facility: [facility] Address: [address] [place] [address] Performed By: #### 5 8410-2 ####[facility] LABORATORYCLIA [id number] [address] [place] MCHC (RBC) [Mass/Vol] 31.8 g/dL Normal 30.5-36.0 [facility] Comment on above: Order Comment: Speci men Type: BLOOD SPECIMENOrdering Facility: [facility] Address: [address] [place] [address] Performed By: #### 5 8410-2 ####[facility] LABORATORYCLIA [id number] [address] MCV (RBC) [Entitic vol] 89.5 fL Normal 80.0-100.0 [facility] Comment on above: Order Comment: Speci men Type: BLOOD SPECIMENOrdering Facility: [facility] Address: [address] [place] [address] Performed By: #### 5 8410-2 ####[facility] LABORATORYCLIA [id number] [address] [place] Nucleated RBC (Bld) [#/Vol] 0.02 10*3/uL High <0.01 [facility] Comment on above: Order Comment: Speci men Type: BLOOD SPECIMENOrdering Facility: [facility] Address: [address] [place] [address] Performed By: #### 5 8410-2 ####[facility]ORATORYCLIA [id number] [address] STATES OF [facility] Platelet mean volume (Bld) [Entitic vol] 9.4 fL Normal 9.0-12.7 [facility] Comment on above: Order Comment: Speci men Type: BLOOD SPECIMENOrdering Facility: [facility] Address: [address] [place] [address] Performed By: #### 5 8410-2 ####[facility] LABORATORYCLIA [id number] [address] [place] Platelets (Bld) [#/Vol] 542 10*3/uL High 150-400 [facility] Comment on above: Order Comment: Speci men Type: BLOOD SPECIMENOrdering Facility: [facility] Address: [address] [place] [address] Performed By: #### 5 8410-2 ####[facility] LABORATORYCLIA [id number] [address] [place] RBC (Bld) [#/Vol] 3.13 10*6/uL Low 3.90-5.20 [facility] Comment on above: Order Comment: Speci men Type: BLOOD SPECIMENOrdering Facility: [facility] Address: [address] [place] [address] Performed By: #### 5 8410-2 ####[facility]ORATORYCLIA [id number] [address] OF [facility] WBC (Bld) [#/Vol] 16.51 10*3/uL High 3.70-11.00 [facility] Comment on above: Order Comment: Speci men Type: BLOOD SPECIMENOrdering Facility: [facility] Address: [address] [place] [address] Performed By: #### 5 8410-2 ####[facility] LABORATORYCLIA [id number] [address] Comprehensive metabolic 2000 panelon 12-04-2023 Albumin [Mass/Vol] 2.5 g/dL Low 3.9-4.9 [facility] Comment on above: Order Comment: Speci men Type: BLOOD SPECIMENOrdering Facility: [facility] Address: [address] [place] [address] Performed By: #### 2 4323-8 ####[facility] LABORATORYCLIA [id number] [address] ALP [Catalytic activity/Vol] 124 U/L High 34-123 [facility] Comment on above: Order Comment: Speci men Type: BLOOD SPECIMENOrdering Facility: [facility] Address: [address] [place] [address] Performed By: #### 2 4323-8 ####[facility] LABORATORYCLIA [id number] [address] ALT With P-5'-P [Catalytic activity/Vol] 51 U/L High 7-38 [facility] Comment on above: Order Comment: Speci men Type: BLOOD SPECIMENOrdering Facility: [facility] Address: [address] [place] [address] Performed By: #### 2 4323-8 ####[facility] LABORATORYCLIA [id number] [place] [address] [place] Anion gap [Moles/Vol] 9 mmol/L Normal 8-15 [facility] Comment on above: Order Comment: Speci men Type: BLOOD SPECIMENOrdering Facility: [facility] Address: [address] [place] [address] Performed By: #### 2 4323-8 ####[facility]ORYCLIA [id number] [place] [address] [place] AST With P-5'-P [Catalytic activity/Vol] 18 U/L Normal 13-35 [facility] Comment on above: Order Comment: Speci men Type: BLOOD SPECIMENOrdering Facility: [facility] Address: [address] [place] [address] Performed By: #### 2 4323-8 ####[facility]ORATORYCLIA [id number] [address] [place] Bilirubin [Mass/Vol] 0.3 mg/dL Normal 0.2-1.3 [facility] Comment on above: Order Comment: Speci men Type: BLOOD SPECIMENOrdering Facility: [facility] Address: [address] [place] [address] Performed By: #### 2 4323-8 ####[facility]ORATORYCLIA [id number] [address] [place] Calcium [Mass/Vol] 8.2 mg/dL Low 8.5-10.2 [facility] Comment on above: Order Comment: Speci men Type: BLOOD SPECIMENOrdering Facility: [facility] Address: [address] [place] [address] Performed By: #### 2 4323-8 ####[facility]ORATORYCLIA [id number] [place] [address] [place] Chloride [Moles/Vol] 98 mmol/L Normal 98-107 [facility] Comment on above: Order Comment: Speci men Type: BLOOD SPECIMENOrdering Facility: [facility] Address: [address] [place] [address] Performed By: #### 2 4323-8 ####[facility]ORATORYCLIA [id number] [address] STATES OF [facility] CO2 [Moles/Vol] 28 mmol/L Normal 22-30 [facility] Comment on above: Order Comment: Speci men Type: BLOOD SPECIMENOrdering Facility: [facility] Address: [address] [place] [address] Performed By: #### 2 4323-8 ####[facility] LABORATORYCLIA [id number] [address] STATES OF [facility] Creatinine [Mass/Vol] 0.58 mg/dL Normal 0.58-0.96 [facility] Comment on above: Order Comment: Speci men Type: BLOOD SPECIMENOrdering Facility: [facility] Address: [address] [place] [address] Performed By: #### 2 4323-8 ####[facility]ORATORYCLIA [id number] [address] Creatinine and Glomerular filtration rate.predicted panel (S/P/Bld) 93 mL/min/1.73m??? Normal >=60 [facility] Comment on above: Order Comment: Speci men Type: BLOOD SPECIMENOrdering Facility: [facility] Address: [address] [place] [address] Result Comment: Rosana mated Glomerular Filtration Rate [...] actual GFR. Performed By: #### 2 4323-8 ####[facility] LABORATORYCLIA [id number] [address] [place] Glucose [Mass/Vol] 111 mg/dL High 74-99 [facility] Comment on above: Order Comment: Speci men Type: BLOOD SPECIMENOrdering Facility: [facility] Address: [address] [place] [address] Result Comment: The [place] Diabetes Association (ADA) provides guidance for cutoff [...] Standards of Medical Care in Diabetes 2016, [place] Diabetes [employer]. Diabetes Care. 2016.39(Suppl 1). Performed By: #### 2 4323-8 ####[facility] LABORATORYCLIA [id number] [place] [address] [place] Potassium [Moles/Vol] 3.5 mmol/L Low 3.7-5.1 [facility] Comment on above: Order Comment: Speci men Type: BLOOD SPECIMENOrdering Facility: [facility] Address: [address] [place] [address] Performed By: #### 2 4323-8 ####[facility] LABORATORYCLIA [id number] [place] [address] [place] Protein [Mass/Vol] 5.6 g/dL Low 6.3-8.0 [facility] Comment on above: Order Comment: Speci men Type: BLOOD SPECIMENOrdering Facility: [facility] Address: [address] [place] [address] Performed By: #### 2 4323-8 ####[facility] LABORATORYCLIA [id number] [place] [address] [place] Sodium [Moles/Vol] 135 mmol/L Low 136-144 [facility] Comment on above: Order Comment: Speci men Type: BLOOD SPECIMENOrdering Facility: [facility] Address: [address] [place] [address] Performed By: #### 2 4323-8 ####[facility] LABORATORYCLIA [id number] [place] [id number] [place] [facility] Urea nitrogen [Mass/Vol] 7 mg/dL Normal 7-21 [facility] Comment on above: Order Comment: Speci men Type: BLOOD SPECIMENOrdering Facility: [facility] Address: [address] [place] [address] Performed By: #### 2 4323-8 ####[facility] LABORATORYCLIA [id number] [address] [place] aPTT PPPon 12-04-2023 aPTT Coag (PPP) [Time] 39.5 s High 23.0-32.4 [facility] Comment on above: Order Comment: Speci men Type: BLOOD SPECIMENOrdering Facility: [facility] Address: [address] [place] [address] Performed By: #### 1 4979-9 ####[facility]ORATORYCLIA [id number] [address] STATES OF [facility] CBC panel Auto (Bld)on 12-02 Erythrocyte distribution width (RBC) [Ratio] 14.9 % Normal 11.5-15.0 [facility] Comment on above: Order Comment: Speci men Type: BLOOD SPECIMENOrdering Facility: [facility] Address: [address] [place] [address] Performed By: #### 5 8410-2 ####[facility] LABORATORYCLIA [id number] [address] STATES OF [facility] Hematocrit (Bld) [Volume fraction] 25.4 % Low 36.0-46.0 [facility] Comment on above: Order Comment: Speci men Type: BLOOD SPECIMENOrdering Facility: [facility] Address: [address] [place] [address] Performed By: #### 5 8410-2 ####[facility] LABORATORYCLIA [id number] [address] STATES [facility] Hemoglobin (Bld) [Mass/Vol] 8.3 g/dL Low 11.5-15.5 [facility] Comment on above: Order Comment: Speci men Type: BLOOD SPECIMENOrdering Facility: [facility] Address: [address] [place] [address] Performed By: #### 5 8410-2 ####[facility] LABORATORYCLIA [id number] [address] STATES OF [facility] MCH (RBC) [Entitic mass] 29.0 pg Normal 26.0-34.0 [facility] Comment on above: Order Comment: Speci men Type: BLOOD SPECIMENOrdering Facility: [facility] Address: [address] [place] [address] Performed By: #### 5 8410-2 ####[facility] LABORATORYCLIA [id number] [address] [place] MCHC (RBC) [Mass/Vol] 32.7 g/dL Normal 30.5-36.0 [facility] Comment on above: Order Comment: Speci men Type: BLOOD SPECIMENOrdering Facility: [facility] Address: [address] [place] [address] Performed By: #### 5 8410-2 ####[facility] LABORATORYCLIA [id number] [address] STATES [facility] MCV (RBC) [Entitic vol] 88.8 fL Normal 80.0-100.0 [facility] Comment on above: Order Comment: Speci men Type: BLOOD SPECIMENOrdering Facility: [facility] Address: [address] [place] [address] Performed By: #### 5 8410-2 ####[facility] LABORATORYCLIA [id number] [address] Nucleated RBC (Bld) [#/Vol] 0.02 10*3/uL High <0.01 [facility] Comment on above: Order Comment: Speci men Type: BLOOD SPECIMENOrdering Facility: [facility] Address: [address] [place] [address] Performed By: #### 5 8410-2 ####[facility] LABORATORYCLIA [id number] [address] [place] Platelet mean volume (Bld) [Entitic vol] 9.4 fL Normal 9.0-12.7 [facility] Comment on above: Order Comment: Speci men Type: BLOOD SPECIMENOrdering Facility: [facility] Address: [address] [place] [address] Performed By: #### 5 8410-2 ####[facility] LABORATORYCLIA [id number] [address] [place] Platelets (Bld) [#/Vol] 443 10*3/uL High 150-400 [facility] Comment on above: Order Comment: Speci men Type: BLOOD SPECIMENOrdering Facility: [facility] Address: [address] [place] [address] Performed By: #### 5 8410-2 ####[facility] LABORATORYCLIA [id number] [place] [address] [place] RBC (Bld) [#/Vol] 2.86 10*6/uL Low 3.90-5.20 [facility] Comment on above: Order Comment: Speci men Type: BLOOD SPECIMENOrdering Facility: [facility] Address: [address] [place] [address] Performed By: #### 5 8410-2 ####[facility] LABORATORYCLIA [id number] [place] [address] [place] WBC (Bld) [#/Vol] 14.29 10*3/uL High 3.70-11.00 [facility] Comment on above: Order Comment: Speci men Type: BLOOD SPECIMENOrdering Facility: [facility] Address: [address] [place] [address] Performed By: #### 5 8410-2 ####[facility] LABORATORYCLIA [id number] [address] [place] CONSULT PROGon 12-03-2023 CONSULT PROG Normal [facility] Comprehensive metabolic 2000 panelon 12-03-2023 Albumin [Mass/Vol] 2.4 g/dL Low 3.9-4.9 [facility] Comment on above: Order Comment: Speci men Type: BLOOD SPECIMENOrdering Facility: [facility] Address: [address] [place] [address] Performed By: #### 2 4323-8 ####[facility]ORATORYCLIA [id number] [address] [place] ALP [Catalytic activity/Vol] 163 U/L High 34-123 [facility] Comment on above: Order Comment: Speci men Type: BLOOD SPECIMENOrdering Facility: [facility] Address: [address] [place] [address] Performed By: #### 2 4323-8 ####[facility] LABORATORYCLIA [id number] [address] [place] ALT With P-5'-P [Catalytic activity/Vol] 60 U/L High 7-38 [facility] Comment on above: Order Comment: Speci men Type: BLOOD SPECIMENOrdering Facility: [facility] Address: [address] [place] [address] Performed By: #### 2 4323-8 ####[facility] LABORATORYCLIA [id number] [address] [place] Anion gap [Moles/Vol] 8 mmol/L Normal 8-15 [facility] Comment on above: Order Comment: Speci men Type: BLOOD SPECIMENOrdering Facility: [facility] Address: [address] [place] [address] Performed By: #### 2 4323-8 ####[facility]ATORYCLIA [id number] [address] [place] AST With P-5'-P [Catalytic activity/Vol] 30 U/L Normal 13-35 [facility] Comment on above: Order Comment: Speci men Type: BLOOD SPECIMENOrdering Facility: [facility] Address: [address] [place] [address] Performed By: #### 2 4323-8 ####[facility]ATORYCLIA [id number] [place] [address] [place] Bilirubin [Mass/Vol] 0.3 mg/dL Normal 0.2-1.3 [facility] Comment on above: Order Comment: Speci men Type: BLOOD SPECIMENOrdering Facility: [facility] Address: [address] [place] [address] Performed By: #### 2 4323-8 ####[facility] LABORATORYCLIA [id number] [place] [address] [place] Calcium [Mass/Vol] 8.4 mg/dL Low 8.5-10.2 [facility] Comment on above: Order Comment: Speci men Type: BLOOD SPECIMENOrdering Facility: [facility] Address: [address] [place] [address] Performed By: #### 2 4323-8 ####[facility] LABORATORYCLIA [id number] [place] [address] [place] Chloride [Moles/Vol] 99 mmol/L Normal 98-107 [facility] Comment on above: Order Comment: Speci men Type: BLOOD SPECIMENOrdering Facility: [facility] Address: [address] [place] [address] Performed By: #### 2 4323-8 ####[facility] LABORATORYCLIA [id number] [place] [address] [place] CO2 [Moles/Vol] 29 mmol/L Normal 22-30 [facility] Comment on above: Order Comment: Speci men Type: BLOOD SPECIMENOrdering Facility: [facility] Address: [address] [place] [address] Performed By: #### 2 4323-8 ####[facility] LABORATORYCLIA [id number] [place] [address] [place] Creatinine [Mass/Vol] 0.55 mg/dL Low 0.58-0.96 [facility] Comment on above: Order Comment: Speci men Type: BLOOD SPECIMENOrdering Facility: [facility] Address: [address] [place] [address] Performed By: #### 2 4323-8 ####[facility] LABORATORYCLIA [id number] [place] [address] [place] Creatinine and Glomerular filtration rate.predicted panel (S/P/Bld) 94 mL/min/1.73m??? Normal >=60 [facility] Comment on above: Order Comment: Antwan rowland Type: BLOOD SPECIMENOrdering Facility: [facility] Address: [address] [place] [address] Result Comment: Rosana mated Glomerular Filtration Rate [...] actual GFR. Performed By: #### 2 4323-8 ####[facility] LABORATORYCLIA [id number] [place] [address] [place] Glucose [Mass/Vol] 114 mg/dL High 74-99 [facility] Comment on above: Order Comment: Antwan rowland Type: BLOOD SPECIMENOrdering Facility: [facility] Address: [address] [place] [address] Result Comment: The [place] Diabetes Association (ADA) provides guidance for cutoff [...] Standards of Medical Care in Diabetes 2016, [place] Diabetes Association. Diabetes Care. 2016.39(Suppl 1). Performed By: #### 2 4323-8 ####[facility] LABORATORYCLIA [id number] [place] [id number] [place] Potassium [Moles/Vol] 3.6 mmol/L Low 3.7-5.1 [facility] Comment on above: Order Comment: Speci men Type: BLOOD SPECIMENOrdering Facility: [facility] Address: [address] [place] [address] Performed By: #### 2 4323-8 ####[facility] LABORATORYCLIA [id number] [place] [id number] [place] Protein [Mass/Vol] 5.3 g/dL Low 6.3-8.0 [facility] Comment on above: Order Comment: Speci men Type: BLOOD SPECIMENOrdering Facility: [facility] Address: [address] [place] [address] Performed By: #### 2 4323-8 ####[facility] LABORATORYCLIA [id number] [place] [address] [place] Sodium [Moles/Vol] 136 mmol/L Normal 136-144 [facility] Comment on above: Order Comment: Speci men Type: BLOOD SPECIMENOrdering Facility: [facility] Address: [address] [place] [address] Performed By: #### 2 4323-8 ####[facility] LABORATORYCLIA [id number] [place] [address] [place] Urea nitrogen [Mass/Vol] 7 mg/dL Normal 7-21 [facility] Comment on above: Order Comment: Speci men Type: BLOOD SPECIMENOrdering Facility: [facility] Address: [address] [place] [address] Performed By: #### 2 4323-8 ####[facility] LABORATORYCLIA [id number] [place] [id number] [place] NUTRITIONon 12-03-2023 NUTRITION Normal [facility] THERAPY NTon 12-03-2023 THERAPY NT Normal [facility] aPTT PPPon 12-03-2023 aPTT Coag (PPP) [Time] 44.1 s High 23.0-32.4 [facility] Comment on above: Order Comment: Speci men Type: BLOOD SPECIMENOrdering Facility: [facility] Address: [address] [place] [address] Performed By: #### 1 4979-9 ####[facility] LABORATORYCLIA [id number] [address] aPTT Coag (PPP) [Time] 57.2 s High 23.0-32.4 [facility] Comment on above: Order Comment: Speci men Type: BLOOD SPECIMENOrdering Facility: [facility] Address: [address] [place] [address] Performed By: #### 1 4979-9 ####[facility] LABORATORYCLIA [id number] [address] aPTT Coag (PPP) [Time] 88.0 s High 23.0-32.4 [facility] Comment on above: Order Comment: Speci men Type: BLOOD SPECIMENOrdering Facility: [facility] Address: [address] [place] [address] Performed By: #### 1 4979-9 ####[facility] LABORATORYCLIA [id number] [address] aPTT Coag (PPP) [Time] s High 23.0-32.4 [facility] Comment on above: Order Comment: Speci men Type: BLOOD SPECIMENOrdering Facility: [facility] Address: [address] [place] [address] Performed By: #### 1 4979-9 ####[facility] LABORATORYCLIA [id number] [address] CASE MANAGEMon 12-02-2023 CASE MANAGEM Normal [facility] CBC panel Auto (Bld)on 12-01 Erythrocyte distribution width (RBC) [Ratio] 15.2 % High 11.5-15.0 [facility] Comment on above: Order Comment: Speci men Type: BLOOD SPECIMENOrdering Facility: [facility] Address: [address] [place] [address] Performed By: #### 5 8410-2 ####[facility] LABORATORYCLIA [id number] [address] Hematocrit (Bld) [Volume fraction] 32.8 % Low 36.0-46.0 [facility] Comment on above: Order Comment: Speci men Type: BLOOD SPECIMENOrdering Facility: [facility] Address: [address] [place] [address] Performed By: #### 5 8410-2 ####[facility] LABORATORYCLIA [id number] [address] STATES OF [facility] Hemoglobin (Bld) [Mass/Vol] 10.1 g/dL Low 11.5-15.5 [facility] Comment on above: Order Comment: Speci men Type: BLOOD SPECIMENOrdering Facility: [facility] Address: [address] [place] [address] Performed By: #### 5 8410-2 ####[facility] LABORATORYCLIA [id number] [address] STATES OF [facility] MCH (RBC) [Entitic mass] 28.2 pg Normal 26.0-34.0 [facility] Comment on above: Order Comment: Speci men Type: BLOOD SPECIMENOrdering Facility: [facility] Address: [address] [place] [address] Performed By: #### 5 8410-2 ####[facility] LABORATORYCLIA [id number] [address] [place] MCHC (RBC) [Mass/Vol] 30.8 g/dL Normal 30.5-36.0 [facility] Comment on above: Order Comment: Speci men Type: BLOOD SPECIMENOrdering Facility: [facility] Address: [address] [place] [address] Performed By: #### 5 8410-2 ####[facility] LABORATORYCLIA [id number] [address] STATES [facility] MCV (RBC) [Entitic vol] 91.6 fL Normal 80.0-100.0 [facility] Comment on above: Order Comment: Speci men Type: BLOOD SPECIMENOrdering Facility: [facility] Address: [address] [place] [address] Performed By: #### 5 8410-2 ####[facility] LABORATORYCLIA [id number] [place] [address] [place] Nucleated RBC (Bld) [#/Vol] 0.02 10*3/uL High <0.01 [facility] Comment on above: Order Comment: Speci men Type: BLOOD SPECIMENOrdering Facility: [facility] Address: [address] [place] [address] Performed By: #### 5 8410-2 ####[facility] LABORATORYCLIA [id number] [address] [place] Platelet mean volume (Bld) [Entitic vol] 9.4 fL Normal 9.0-12.7 [facility] Comment on above: Order Comment: Speci men Type: BLOOD SPECIMENOrdering Facility: [facility] Address: [address] [place] [address] Performed By: #### 5 8410-2 ####[facility] LABORATORYCLIA [id number] [address] [place] Platelets (Bld) [#/Vol] 481 10*3/uL High 150-400 [facility] Comment on above: Order Comment: Speci men Type: BLOOD SPECIMENOrdering Facility: [facility] Address: [address] [place] [address] Performed By: #### 5 8410-2 ####[facility] LABORATORYCLIA [id number] [place] [address] [place] RBC (Bld) [#/Vol] 3.58 10*6/uL Low 3.90-5.20 [facility] Comment on above: Order Comment: Speci men Type: BLOOD SPECIMENOrdering Facility: [facility] Address: [address] [place] [address] Performed By: #### 5 8410-2 ####[facility] LABORATORYCLIA [id number] [place] [address] [place] WBC (Bld) [#/Vol] 14.34 10*3/uL High 3.70-11.00 [facility] Comment on above: Order Comment: Speci men Type: BLOOD SPECIMENOrdering Facility: [facility] Address: [address] [place] [address] Performed By: #### 5 8410-2 ####[facility] LABORATORYCLIA [id number] [address] [place] Erythrocyte distribution width (RBC) [Ratio] 15.2 % High 11.5-15.0 [facility] Comment on above: Order Comment: Speci men Type: BLOOD SPECIMENOrdering Facility: [facility] Address: [address] [place] [address] Performed By: #### 5 8410-2 ####[facility] LABORATORYCLIA [id number] [address] OF [facility] Hematocrit (Bld) [Volume fraction] 25.2 % Low 36.0-46.0 [facility] Comment on above: Order Comment: Speci men Type: BLOOD SPECIMENOrdering Facility: [facility] Address: [address] [place] [address] Performed By: #### 5 8410-2 ####[facility] LABORATORYCLIA [id number] [address] [place] Hemoglobin (Bld) [Mass/Vol] 8.1 g/dL Low 11.5-15.5 [facility] Comment on above: Order Comment: Speci men Type: BLOOD SPECIMENOrdering Facility: [facility] Address: [address] [place] [address] Performed By: #### 5 8410-2 ####[facility] LABORATORYCLIA [id number] [address] [place] MCH (RBC) [Entitic mass] 29.0 pg Normal 26.0-34.0 [facility] Comment on above: Order Comment: Speci men Type: BLOOD SPECIMENOrdering Facility: [facility] Address: [address] [place] [address] Performed By: #### 5 8410-2 ####[facility] LABORATORYCLIA [id number] [address] STATES [facility] MCHC (RBC) [Mass/Vol] 32.1 g/dL Normal 30.5-36.0 [facility] Comment on above: Order Comment: Speci men Type: BLOOD SPECIMENOrdering Facility: [facility] Address: [address] [place] [address] Performed By: #### 5 8410-2 ####[facility] LABORATORYCLIA [id number] [address] MCV (RBC) [Entitic vol] 90.3 fL Normal 80.0-100.0 [facility] Comment on above: Order Comment: Speci men Type: BLOOD SPECIMENOrdering Facility: [facility] Address: [address] [place] [address] Performed By: #### 5 8410-2 ####[facility] LABORATORYCLIA [id number] [address] Nucleated RBC (Bld) [#/Vol] 0.03 10*3/uL High <0.01 [facility] Comment on above: Order Comment: Speci men Type: BLOOD SPECIMENOrdering Facility: [facility] Address: [address] [place] [address] Performed By: #### 5 8410-2 ####[facility] LABORATORYCLIA [id number] [address] STATES [facility] Platelet mean volume (Bld) [Entitic vol] 9.4 fL Normal 9.0-12.7 [facility] Comment on above: Order Comment: Speci men Type: BLOOD SPECIMENOrdering Facility: [facility] Address: [address] [place] [address] Performed By: #### 5 8410-2 ####[facility] LABORATORYCLIA [id number] [address] Platelets (Bld) [#/Vol] 394 10*3/uL Normal 150-400 [facility] Comment on above: Order Comment: Speci men Type: BLOOD SPECIMENOrdering Facility: [facility] Address: [address] [place] [address] Performed By: #### 5 8410-2 ####[facility] LABORATORYCLIA [id number] [place] [address] [place] RBC (Bld) [#/Vol] 2.79 10*6/uL Low 3.90-5.20 [facility] Comment on above: Order Comment: Speci men Type: BLOOD SPECIMENOrdering Facility: [facility] Address: [address] [place] [address] Performed By: #### 5 8410-2 ####[facility] LABORATORYCLIA [id number] [place] [address] [place] WBC (Bld) [#/Vol] 13.59 10*3/uL High 3.70-11.00 [facility] Comment on above: Order Comment: Speci men Type: BLOOD SPECIMENOrdering Facility: [facility] Address: [address] [place] [address] Performed By: #### 5 8410-2 ####[facility] LABORATORYCLIA [id number] [address] OF [place] CONSULT PROGon 12-02-2023 CONSULT PROG Normal [facility] Comprehensive metabolic 2000 panelon 12-02-2023 Albumin [Mass/Vol] 2.6 g/dL Low 3.9-4.9 [facility] Comment on above: Order Comment: Speci men Type: BLOOD SPECIMENOrdering Facility: [facility] Address: [address] [place] [address] Performed By: #### 2 4323-8 ####[facility] LABORATORYCLIA [id number] [address] [place] ALP [Catalytic activity/Vol] 100 U/L Normal 34-123 [facility] Comment on above: Order Comment: Speci men Type: BLOOD SPECIMENOrdering Facility: [facility] Address: [address] [place] [address] Performed By: #### 2 4323-8 ####[facility] LABORATORYCLIA [id number] [place] [address] [place] ALT With P-5'-P [Catalytic activity/Vol] 87 U/L High 7-38 [facility] Comment on above: Order Comment: Speci men Type: BLOOD SPECIMENOrdering Facility: [facility] Address: [address] [place] [address] Performed By: #### 2 4323-8 ####[facility] LABORATORYCLIA [id number] [place] [address] [place] Anion gap [Moles/Vol] 9 mmol/L Normal 8-15 [facility] Comment on above: Order Comment: Speci men Type: BLOOD SPECIMENOrdering Facility: [facility] Address: [address] [place] [address] Performed By: #### 2 4323-8 ####[facility] LABORATORYCLIA [id number] [address] [place] AST With P-5'-P [Catalytic activity/Vol] 20 U/L Normal 13-35 [facility] Comment on above: Order Comment: Speci men Type: BLOOD SPECIMENOrdering Facility: [facility] Address: [address] [place] [address] Performed By: #### 2 4323-8 ####[facility] LABORATORYCLIA [id number] [place] [address] [place] Bilirubin [Mass/Vol] 0.3 mg/dL Normal 0.2-1.3 [facility] Comment on above: Order Comment: Speci men Type: BLOOD SPECIMENOrdering Facility: [facility] Address: [address] [place] [address] Performed By: #### 2 4323-8 ####[facility] LABORATORYCLIA [id number] [address] [place] Calcium [Mass/Vol] 8.4 mg/dL Low 8.5-10.2 [facility] Comment on above: Order Comment: Speci men Type: BLOOD SPECIMENOrdering Facility: [facility] Address: [address] [place] [address] Performed By: #### 2 4323-8 ####[facility] LABORATORYCLIA [id number] [address] [place] Chloride [Moles/Vol] 93 mmol/L Low 98-107 [facility] Comment on above: Order Comment: Speci men Type: BLOOD SPECIMENOrdering Facility: [facility] Address: [address] [place] [address] Performed By: #### 2 4323-8 ####[facility] LABORATORYCLIA [id number] [address] OF [facility] CO2 [Moles/Vol] 28 mmol/L Normal 22-30 [facility] Comment on above: Order Comment: Speci men Type: BLOOD SPECIMENOrdering Facility: [facility] Address: [address] [place] [address] Performed By: #### 2 4323-8 ####[facility] LABORATORYCLIA [id number] [address] OF [facility] Creatinine [Mass/Vol] 0.54 mg/dL Low 0.58-0.96 [facility] Comment on above: Order Comment: Speci men Type: BLOOD SPECIMENOrdering Facility: [facility] Address: [address] [place] [address] Performed By: #### 2 4323-8 ####[facility] LABORATORYCLIA [id number] [address] Creatinine and Glomerular filtration rate.predicted panel (S/P/Bld) 94 mL/min/1.73m??? Normal >=60 [facility] Comment on above: Order Comment: Speci men Type: BLOOD SPECIMENOrdering Facility: [facility] Address: [address] [place] [address] Result Comment: Rosana mated Glomerular Filtration Rate [...] actual GFR. Performed By: #### 2 4323-8 ####[facility] LABORATORYCLIA [id number] [place] [address] [place] Glucose [Mass/Vol] 108 mg/dL High 74-99 [facility] Comment on above: Order Comment: Speci men Type: BLOOD SPECIMENOrdering Facility: [facility] Address: [address] [place] [address] Result Comment: The [place] Diabetes Association (ADA) provides guidance for cutoff [...] Standards of Medical Care in Diabetes 2016, [place] [employer]. Diabetes Care. 2016.39(Suppl 1). Performed By: #### 2 4323-8 ####[facility] LABORATORYCLIA [id number] [place] [address] [place] Potassium [Moles/Vol] 3.7 mmol/L Normal 3.7-5.1 [facility] Comment on above: Order Comment: Speci men Type: BLOOD SPECIMENOrdering Facility: [facility] Address: [address] [place] [address] Performed By: #### 2 4323-8 ####[facility] LABORATORYCLIA [id number] [place] [id number] [place] Protein [Mass/Vol] 5.4 g/dL Low 6.3-8.0 [facility] Comment on above: Order Comment: Speci men Type: BLOOD SPECIMENOrdering Facility: [facility] Address: [address] [place] [address] Performed By: #### 2 4323-8 ####[facility] LABORATORYCLIA [id number] [address] STATES OF [facility] Sodium [Moles/Vol] 130 mmol/L Low 136-144 [facility] Comment on above: Order Comment: Antwan kashif Type: BLOOD SPECIMENOrdering Facility: [facility] Address: [address] [place] [address] Performed By: #### 2 4323-8 ####[facility] LABORATORYCLIA [id number] [place] [id number] [place] STATES OF [facility] Urea nitrogen [Mass/Vol] 6 mg/dL Low 7-21 [facility] Comment on above: Order Comment: Antwan kashif Type: BLOOD SPECIMENOrdering Facility: [facility] Address: [address] [place] [address] Performed By: #### 2 4323-8 ####[facility] LABORATORYCLIA [id number] [address] [place] PT panel Coag (PPP)on 2023 INR Coag (PPP) [Relative time] 1.0 {INR} Normal 0.9-1.3 [facility] Comment on above: Order Comment: Antwan kashif Type: BLOOD SPECIMENOrdering Facility: [facility] Address: [address] [place] [address] Result Comment: Avis min K Antagonist (VKA) Therapeutic Range: INR 2 to 3 (Target INR of 2.5)Note: For patients treated with VKA drugs, such as warfarin, the [employer] 2012 Guideline recommends [...] 70: 252-289 Performed By: #### 3 4528-0, 99111-5 ####[facility] LABORATORYCLIA [id number] [place], [place] [id number] [place] [address] [facility] PT Coag (PPP) [Time] 10.9 s Normal 9.7-13.0 [facility] Comment on above: Order Comment: Speci men Type: BLOOD SPECIMENOrdering Facility: [facility] Address: [address] [place] [address] Performed By: #### 3 4528-0, 85167-0 ####[facility] LABORATORYCLIA [id number] [address] STATES OF [facility] aPTT PPPon 12-02-2023 aPTT Coag (PPP) [Time] s High 23.0-32.4 [facility] Comment on above: Order Comment: Speci men Type: BLOOD SPECIMENOrdering Facility: [facility] Address: [address] [place] [address] Performed By: #### 1 4979-9 ####[facility] LABORATORYCLIA [id number] [address] aPTT Coag (PPP) [Time] 35.8 s High 23.0-32.4 [facility] Comment on above: Order Comment: Speci men Type: BLOOD SPECIMENOrdering Facility: [facility] Address: [address] [place] [address] Performed By: #### 3 4528-0, 71434-8 ####[facility] LABORATORYCLIA [id number] [place] [id number] [facility] OF [facility] ALLIED HEALTHon 12-01-2023 ALLIED HEALTH Normal [facility] CBC panel Auto (Bld)on 11-30 Erythrocyte distribution width (RBC) [Ratio] 14.9 % Normal 11.5-15.0 [facility] Comment on above: Order Comment: Speci men Type: BLOOD SPECIMENOrdering Facility: [facility] Address: [address] [place] [address] Performed By: #### 5 8410-2 ####[facility] LABORATORYCLIA [id number] [address] OF [facility] Hematocrit (Bld) [Volume fraction] 26.4 % Low 36.0-46.0 [facility] Comment on above: Order Comment: Speci men Type: BLOOD SPECIMENOrdering Facility: [facility] Address: [address] [place] [address] Performed By: #### 5 8410-2 ####[facility] LABORATORYCLIA [id number] [address] Hemoglobin (Bld) [Mass/Vol] 8.7 g/dL Low 11.5-15.5 [facility] Comment on above: Order Comment: Speci men Type: BLOOD SPECIMENOrdering Facility: [facility] Address: [address] [place] [address] Performed By: #### 5 8410-2 ####[facility] LABORATORYCLIA [id number] [address] STATES [facility] MCH (RBC) [Entitic mass] 29.1 pg Normal 26.0-34.0 [facility] Comment on above: Order Comment: Speci men Type: BLOOD SPECIMENOrdering Facility: [facility] Address: [address] [place] [address] Performed By: #### 5 8410-2 ####[facility] LABORATORYCLIA [id number] [address] [place] MCHC (RBC) [Mass/Vol] 33.0 g/dL Normal 30.5-36.0 [facility] Comment on above: Order Comment: Speci men Type: BLOOD SPECIMENOrdering Facility: [facility] Address: [address] [place] [address] Performed By: #### 5 8410-2 ####[facility] LABORATORYCLIA [id number] [address] MCV (RBC) [Entitic vol] 88.3 fL Normal 80.0-100.0 [facility] Comment on above: Order Comment: Speci men Type: BLOOD SPECIMENOrdering Facility: [facility] Address: [address] [place] [address] Performed By: #### 5 8410-2 ####[facility] LABORATORYCLIA [id number] [address] [place] Nucleated RBC (Bld) [#/Vol] 10*3/uL Normal <0.01 [facility] Comment on above: Order Comment: Speci men Type: BLOOD SPECIMENOrdering Facility: [facility] Address: [address] [place] [address] Performed By: #### 5 8410-2 ####[facility] LABORATORYCLIA [id number] [address] OF [place] Platelet mean volume (Bld) [Entitic vol] 9.9 fL Normal 9.0-12.7 [facility] Comment on above: Order Comment: Speci men Type: BLOOD SPECIMENOrdering Facility: [facility] Address: [address] [place] [address] Performed By: #### 5 8410-2 ####[facility] LABORATORYCLIA [id number] [address] [place] Platelets (Bld) [#/Vol] 353 10*3/uL Normal 150-400 [facility] Comment on above: Order Comment: Speci men Type: BLOOD SPECIMENOrdering Facility: [facility] Address: [address] [place] [address] Performed By: #### 5 8410-2 ####[facility] LABORATORYCLIA [id number] [address] [place] RBC (Bld) [#/Vol] 2.99 10*6/uL Low 3.90-5.20 [facility] Comment on above: Order Comment: Speci men Type: BLOOD SPECIMENOrdering Facility: [facility] Address: [address] [place] [address] Performed By: #### 5 8410-2 ####[facility] LABORATORYCLIA [id number] [address] [place] WBC (Bld) [#/Vol] 12.61 10*3/uL High 3.70-11.00 [facility] Comment on above: Order Comment: Speci men Type: BLOOD SPECIMENOrdering Facility: [facility] Address: [address] [place] [address] Performed By: #### 5 8410-2 ####[facility] LABORATORYCLIA [id number] [place] [address] [place] ABD/PEL W IVCONon 024 CT ABD/PEL W IVCON Normal [facility] Comprehensive metabolic 2000 panelon 12-01-2023 Albumin [Mass/Vol] 2.9 g/dL Low 3.9-4.9 [facility] Comment on above: Order Comment: Speci men Type: BLOOD SPECIMENOrdering Facility: [facility] Address: [address] [place] [address] Performed By: #### 2 4323-8 ####[facility] LABORATORYCLIA [id number] [address] [place] ALP [Catalytic activity/Vol] 100 U/L Normal 34-123 [facility] Comment on above: Order Comment: Speci men Type: BLOOD SPECIMENOrdering Facility: [facility] Address: [address] [place] [address] Performed By: #### 2 4323-8 ####[facility] LABORATORYCLIA [id number] [address] [place] ALT With P-5'-P [Catalytic activity/Vol] 133 U/L High 7-38 [facility] Comment on above: Order Comment: Speci men Type: BLOOD SPECIMENOrdering Facility: [facility] Address: [address] [place] [address] Performed By: #### 2 4323-8 ####[facility] LABORATORYCLIA [id number] [address] OF [place] Anion gap [Moles/Vol] 9 mmol/L Normal 8-15 [facility] Comment on above: Order Comment: Speci men Type: BLOOD SPECIMENOrdering Facility: [facility] Address: [address] [place] [address] Performed By: #### 2 4323-8 ####[facility]ORATORYCLIA [id number] [address] [place] AST With P-5'-P [Catalytic activity/Vol] 26 U/L Normal 13-35 [facility] Comment on above: Order Comment: Speci men Type: BLOOD SPECIMENOrdering Facility: [facility] Address: [address] [place] [address] Performed By: #### 2 4323-8 ####[facility] LABORATORYCLIA [id number] [place] [address] [place] Bilirubin [Mass/Vol] 0.3 mg/dL Normal 0.2-1.3 [facility] Comment on above: Order Comment: Speci men Type: BLOOD SPECIMENOrdering Facility: [facility] Address: [address] [place] [address] Performed By: #### 2 4323-8 ####[facility] LABORATORYCLIA [id number] [place] [address] [place] Calcium [Mass/Vol] 8.5 mg/dL Normal 8.5-10.2 [facility] Comment on above: Order Comment: Speci men Type: BLOOD SPECIMENOrdering Facility: [facility] Address: [address] [place] [address] Performed By: #### 2 4323-8 ####[facility] LABORATORYCLIA [id number] [place] [address] [place] Chloride [Moles/Vol] 99 mmol/L Normal 98-107 [facility] Comment on above: Order Comment: Speci men Type: BLOOD SPECIMENOrdering Facility: [facility] Address: [address] [place] [address] Performed By: #### 2 4323-8 ####[facility] LABORATORYCLIA [id number] [place] [address] [place] CO2 [Moles/Vol] 27 mmol/L Normal 22-30 [facility] Comment on above: Order Comment: Speci men Type: BLOOD SPECIMENOrdering Facility: [facility] Address: [address] [place] [address] Performed By: #### 2 4323-8 ####[facility] LABORATORYCLIA [id number] [place] [id number] [place] Creatinine [Mass/Vol] 0.50 mg/dL Low 0.58-0.96 [facility] Comment on above: Order Comment: Antwan kashif Type: BLOOD SPECIMENOrdering Facility: [facility] Address: [address] [place] [address] Performed By: #### 2 4323-8 ####[facility] LABORATORYCLIA [id number] [address] Creatinine and Glomerular filtration rate.predicted panel (S/P/Bld) 96 mL/min/1.73m??? Normal >=60 [facility] Comment on above: Order Comment: Antwan kashif Type: BLOOD SPECIMENOrdering Facility: [facility] Address: [address] [place] [address] Result Comment: Rosana mated Glomerular Filtration Rate [...] actual GFR. Performed By: #### 2 4323-8 ####[facility] LABORATORYCLIA [id number] [address] [place] Glucose [Mass/Vol] 124 mg/dL High 74-99 [facility] Comment on above: Order Comment: Antwan rowland Type: BLOOD SPECIMENOrdering Facility: [facility] Address: [address] [place] [address] Result Comment: The [place] Diabetes [employer] (ADA) provides guidance for cutoff [...] Standards of Medical Care in Diabetes 2016, [place] [employer]. Diabetes Care. 2016.39(Suppl 1). Performed By: #### 2 4323-8 ####[facility] LABORATORYCLIA [id number] [place] [address] [place] Potassium [Moles/Vol] 3.7 mmol/L Normal 3.7-5.1 [facility] Comment on above: Order Comment: Antwan rowland Type: BLOOD SPECIMENOrdering Facility: [facility] Address: [address] [place] [address] Performed By: #### 2 4323-8 ####[facility] LABORATORYCLIA [id number] [place] [address] [place] Protein [Mass/Vol] 5.7 g/dL Low 6.3-8.0 [facility] Comment on above: Order Comment: Antwan rowland Type: BLOOD SPECIMENOrdering Facility: [facility] Address: [address] [place] [address] Performed By: #### 2 4323-8 ####[facility] LABORATORYCLIA [id number] [place] [address] [place] Sodium [Moles/Vol] 135 mmol/L Low 136-144 [facility] Comment on above: Order Comment: Speci men Type: BLOOD SPECIMENOrdering Facility: [facility] Address: [address] [place] [address] Performed By: #### 2 4323-8 ####[facility] LABORATORYCLIA [id number] [place] [address] [place] Urea nitrogen [Mass/Vol] 6 mg/dL Low 7-21 [facility] Comment on above: Order Comment: Conori men Type: BLOOD SPECIMENOrdering Facility: [facility] Address: [address] [place], [place] [address] Performed By: #### 2 4323-8 ####[facility] LABORATORYCLIA [id number] [address] CBC panel Auto (Bld)on 11-29 Erythrocyte distribution width (RBC) [Ratio] 15.3 % High 11.5-15.0 [facility] Comment on above: Order Comment: Speci men Type: BLOOD SPECIMENOrdering Facility: [facility] Address: [address] [place] [address] Performed By: #### 5 8410-2 ####[facility] LABORATORYCLIA [id number] [address] Hematocrit (Bld) [Volume fraction] 25.9 % Low 36.0-46.0 [facility] Comment on above: Order Comment: Speci men Type: BLOOD SPECIMENOrdering Facility: [facility] Address: [address] [place] [address] Performed By: #### 5 8410-2 ####[facility] LABORATORYCLIA [id number] [address] Hemoglobin (Bld) [Mass/Vol] 8.2 g/dL Low 11.5-15.5 [facility] Comment on above: Order Comment: Speci men Type: BLOOD SPECIMENOrdering Facility: [facility] Address: [address] [place] [address] Performed By: #### 5 8410-2 ####[facility] LABORATORYCLIA [id number] [address] MCH (RBC) [Entitic mass] 28.9 pg Normal 26.0-34.0 [facility] Comment on above: Order Comment: Speci men Type: BLOOD SPECIMENOrdering Facility: [facility] Address: [address] [place] [address] Performed By: #### 5 8410-2 ####[facility] LABORATORYCLIA [id number] [address] MCHC (RBC) [Mass/Vol] 31.7 g/dL Normal 30.5-36.0 [facility] Comment on above: Order Comment: Speci men Type: BLOOD SPECIMENOrdering Facility: [facility] Address: [address] [place] [address] Performed By: #### 5 8410-2 ####[facility] LABORATORYCLIA [id number] [address] STATES OF [facility] MCV (RBC) [Entitic vol] 91.2 fL Normal 80.0-100.0 [facility] Comment on above: Order Comment: Speci men Type: BLOOD SPECIMENOrdering Facility: [facility] Address: [address] [place] [address] Performed By: #### 5 8410-2 ####[facility] LABORATORYCLIA [id number] [address] [place] Nucleated RBC (Bld) [#/Vol] 10*3/uL Normal <0.01 [facility] Comment on above: Order Comment: Speci men Type: BLOOD SPECIMENOrdering Facility: [facility] Address: [address] [place] [address] Performed By: #### 5 8410-2 ####[facility] LABORATORYCLIA [id number] [address] [place] Platelet mean volume (Bld) [Entitic vol] 10.3 fL Normal 9.0-12.7 [facility] Comment on above: Order Comment: Speci men Type: BLOOD SPECIMENOrdering Facility: [facility] Address: [address] [place] [address] Performed By: #### 5 8410-2 ####[facility] LABORATORYCLIA [id number] [address] [place] Platelets (Bld) [#/Vol] 287 10*3/uL Normal 150-400 [facility] Comment on above: Order Comment: Speci men Type: BLOOD SPECIMENOrdering Facility: [facility] Address: [address] [place] [address] Performed By: #### 5 8410-2 ####[facility] LABORATORYCLIA [id number] [address] OF [facility] RBC (Bld) [#/Vol] 2.84 10*6/uL Low 3.90-5.20 [facility] Comment on above: Order Comment: Speci men Type: BLOOD SPECIMENOrdering Facility: [facility] Address: [address] [place] [address] Performed By: #### 5 8410-2 ####[facility] LABORATORYCLIA [id number] [address] WBC (Bld) [#/Vol] 12.53 10*3/uL High 3.70-11.00 [facility] Comment on above: Order Comment: Speci men Type: BLOOD SPECIMENOrdering Facility: [facility] Address: [address] [place] [address] Performed By: #### 5 8410-2 ####[facility] LABORATORYCLIA [id number] [address] Comprehensive metabolic 2000 panelon 11-30-2023 Albumin [Mass/Vol] 2.8 g/dL Low 3.9-4.9 [facility] Comment on above: Order Comment: Speci men Type: BLOOD SPECIMENOrdering Facility: [facility] Address: [address] [place] [address] Performed By: #### 2 4323-8 ####[facility] LABORATORYCLIA [id number] [address] ALP [Catalytic activity/Vol] 85 U/L Normal 34-123 [facility] Comment on above: Order Comment: Speci men Type: BLOOD SPECIMENOrdering Facility: [facility] Address: [address] [place] [address] Performed By: #### 2 4323-8 ####[facility] LABORATORYCLIA [id number] [address] ALT With P-5'-P [Catalytic activity/Vol] 191 U/L High 7-38 [facility] Comment on above: Order Comment: Speci men Type: BLOOD SPECIMENOrdering Facility: [facility] Address: [address] [place] [address] Performed By: #### 2 4323-8 ####[facility] LABORATORYCLIA [id number] [place] [address] [place] Anion gap [Moles/Vol] 8 mmol/L Normal 8-15 [facility] Comment on above: Order Comment: Speci men Type: BLOOD SPECIMENOrdering Facility: [facility] Address: [address] [place] [address] Performed By: #### 2 4323-8 ####[facility] LABORATORYCLIA [id number] [address] [place] AST With P-5'-P [Catalytic activity/Vol] 48 U/L High 13-35 [facility] Comment on above: Order Comment: Speci men Type: BLOOD SPECIMENOrdering Facility: [facility] Address: [address] [place] [address] Performed By: #### 2 4323-8 ####[facility] LABORATORYCLIA [id number] [place] [address] [place] Bilirubin [Mass/Vol] 0.4 mg/dL Normal 0.2-1.3 [facility] Comment on above: Order Comment: Speci men Type: BLOOD SPECIMENOrdering Facility: [facility] Address: [address] [place] [address] Performed By: #### 2 4323-8 ####[facility]ORATORYCLIA [id number] [address] [place] Calcium [Mass/Vol] 8.4 mg/dL Low 8.5-10.2 [facility] Comment on above: Order Comment: Speci men Type: BLOOD SPECIMENOrdering Facility: [facility] Address: [address] [place] [address] Performed By: #### 2 4323-8 ####[facility] LABORATORYCLIA [id number] [place] [address] [place] Chloride [Moles/Vol] 99 mmol/L Normal 98-107 [facility] Comment on above: Order Comment: Speci men Type: BLOOD SPECIMENOrdering Facility: [facility] Address: [address] [place] [address] Performed By: #### 2 4323-8 ####[facility] LABORATORYCLIA [id number] [address] [place] CO2 [Moles/Vol] 27 mmol/L Normal 22-30 [facility] Comment on above: Order Comment: Speci men Type: BLOOD SPECIMENOrdering Facility: [facility] Address: [address] [place] [address] Performed By: #### 2 4323-8 ####[facility]CL[facility] [id number] [address] Creatinine [Mass/Vol] 0.48 mg/dL Low 0.58-0.96 [facility] Comment on above: Order Comment: Speci men Type: BLOOD SPECIMENOrdering Facility: [facility] Address: [address] [place] [address] Performed By: #### 2 4323-8 ####[facility]ORATORYCLIA [id number] [address] Creatinine and Glomerular filtration rate.predicted panel (S/P/Bld) 97 mL/min/1.73m??? Normal >=60 [facility] Comment on above: Order Comment: Speci men Type: BLOOD SPECIMENOrdering Facility: [facility] Address: [address] [place] [address] Result Comment: Rosana mated Glomerular Filtration Rate [...] actual GFR. Performed By: #### 2 4323-8 ####[facility] LABORATORYCLIA [id number] [place] [address] [place] Glucose [Mass/Vol] 119 mg/dL High 74-99 [facility] Comment on above: Order Comment: Speci men Type: BLOOD SPECIMENOrdering Facility: [facility] Address: [address] [place] [address] Result Comment: The [place] Diabetes Association (ADA) provides guidance for cutoff [...] Standards of Medical Care in Diabetes 2016, [place] Diabetes [employer]. Diabetes Care. 2016.39(Suppl 1). Performed By: #### 2 4323-8 ####[facility]ORATORYCLIA [id number] [place] [address] [place] Potassium [Moles/Vol] 3.4 mmol/L Low 3.7-5.1 [facility] Comment on above: Order Comment: Antwan men Type: BLOOD SPECIMENOrdering Facility: [facility] Address: [address] [place] [address] Performed By: #### 2 4323-8 ####[facility] LABORATORYCLIA [id number] [place] [address] [place] Protein [Mass/Vol] 5.4 g/dL Low 6.3-8.0 [facility] Comment on above: Order Comment: Speci men Type: BLOOD SPECIMENOrdering Facility: [facility] Address: [address] [place] [address] Performed By: #### 2 4323-8 ####[facility] LABORATORYCLIA [id number] [place] [address] [place] Sodium [Moles/Vol] 134 mmol/L Low 136-144 [facility] Comment on above: Order Comment: Speci men Type: BLOOD SPECIMENOrdering Facility: [facility] Address: [address] [place] [address] Performed By: #### 2 4323-8 ####[facility] LABORATORYCLIA [id number] [address] STATES [facility] Urea nitrogen [Mass/Vol] 9 mg/dL Normal 7-21 [facility] Comment on above: Order Comment: Speci men Type: BLOOD SPECIMENOrdering Facility: [facility] Address: [address] [place] [address] Performed By: #### 2 4323-8 ####[facility] LABORATORYCLIA [id number] [address] OF [facility] THERAPY NTon 11-30-2023 THERAPY NT Normal [facility] CBC panel Auto (Bld)on 11-28 Erythrocyte distribution width (RBC) [Ratio] 15.2 % High 11.5-15.0 [facility] Comment on above: Order Comment: Speci men Type: BLOOD SPECIMENOrdering Facility: [facility] Address: [address] [place] [address] Performed By: #### 5 8410-2 ####[facility] LABORATORYCLIA [id number] [address] STATES OF [facility] Hematocrit (Bld) [Volume fraction] 25.5 % Low 36.0-46.0 [facility] Comment on above: Order Comment: Speci men Type: BLOOD SPECIMENOrdering Facility: [facility] Address: [address] [place] [address] Performed By: #### 5 8410-2 ####[facility] LABORATORYCLIA [id number] [address] [place] Hemoglobin (Bld) [Mass/Vol] 8.0 g/dL Low 11.5-15.5 [facility] Comment on above: Order Comment: Speci men Type: BLOOD SPECIMENOrdering Facility: [facility] Address: [address] [place] [address] Performed By: #### 5 8410-2 ####[facility] LABORATORYCLIA [id number] [address] MCH (RBC) [Entitic mass] 28.7 pg Normal 26.0-34.0 [facility] Comment on above: Order Comment: Speci men Type: BLOOD SPECIMENOrdering Facility: [facility] Address: [address] [place] [address] Performed By: #### 5 8410-2 ####[facility] LABORATORYCLIA [id number] [address] [place] MCHC (RBC) [Mass/Vol] 31.4 g/dL Normal 30.5-36.0 [facility] Comment on above: Order Comment: Speci men Type: BLOOD SPECIMENOrdering Facility: [facility] Address: [address] [place] [address] Performed By: #### 5 8410-2 ####[facility] LABORATORYCLIA [id number] [address] MCV (RBC) [Entitic vol] 91.4 fL Normal 80.0-100.0 [facility] Comment on above: Order Comment: Speci men Type: BLOOD SPECIMENOrdering Facility: [facility] Address: [address] [place] [address] Performed By: #### 5 8410-2 ####[facility] LABORATORYCLIA [id number] [address] Nucleated RBC (Bld) [#/Vol] 10*3/uL Normal <0.01 [facility] Comment on above: Order Comment: Speci men Type: BLOOD SPECIMENOrdering Facility: [facility] Address: [address] [place] [address] Performed By: #### 5 8410-2 ####[facility] LABORATORYCLIA [id number] [address] Platelet mean volume (Bld) [Entitic vol] 10.6 fL Normal 9.0-12.7 [facility] Comment on above: Order Comment: Speci men Type: BLOOD SPECIMENOrdering Facility: [facility] Address: [address] [place] [address] Performed By: #### 5 8410-2 ####[facility] LABORATORYCLIA [id number] [place] [id number] [facility] Platelets (Bld) [#/Vol] 226 10*3/uL Normal 150-400 [facility] Comment on above: Order Comment: Speci men Type: BLOOD SPECIMENOrdering Facility: [facility] Address: [address] [place] [address] Performed By: #### 5 8410-2 ####[facility] LABORATORYCLIA [id number] [address] OF [facility] RBC (Bld) [#/Vol] 2.79 10*6/uL Low 3.90-5.20 [facility] Comment on above: Order Comment: Speci men Type: BLOOD SPECIMENOrdering Facility: [facility] Address: [address] [place] [address] Performed By: #### 5 8410-2 ####[facility] LABORATORYCLIA [id number] [address] OF [facility] WBC (Bld) [#/Vol] 13.50 10*3/uL High 3.70-11.00 [facility] Comment on above: Order Comment: Speci men Type: BLOOD SPECIMENOrdering Facility: [facility] Address: [address] [place] [address] Performed By: #### 5 8410-2 ####[facility] LABORATORYCLIA [id number] [address] [facility] Comprehensive metabolic 2000 panelon 11-29-2023 Albumin [Mass/Vol] 2.9 g/dL Low 3.9-4.9 [facility] Comment on above: Order Comment: Speci men Type: BLOOD SPECIMENOrdering Facility: [facility] Address: [address] [place] [address] Performed By: #### 2 4323-8 ####[facility] LABORATORYCLIA [id number] [place] [address] [place] ALP [Catalytic activity/Vol] 77 U/L Normal 34-123 [facility] Comment on above: Order Comment: Speci men Type: BLOOD SPECIMENOrdering Facility: [facility] Address: [address] [place] [address] Performed By: #### 2 4323-8 ####[facility] LABORATORYCLIA [id number] [place] [address] [place] ALT With P-5'-P [Catalytic activity/Vol] 270 U/L High 7-38 [facility] Comment on above: Order Comment: Speci men Type: BLOOD SPECIMENOrdering Facility: [facility] Address: [address] [place] [address] Performed By: #### 2 4323-8 ####[facility] LABORATORYCLIA [id number] [address] [place] Anion gap [Moles/Vol] 9 mmol/L Normal 8-15 [facility] Comment on above: Order Comment: Speci men Type: BLOOD SPECIMENOrdering Facility: [facility] Address: [address] [place] [address] Performed By: #### 2 4323-8 ####[facility] LABORATORYCLIA [id number] [address] STATES OF [facility] AST With P-5'-P [Catalytic activity/Vol] 111 U/L High 13-35 [facility] Comment on above: Order Comment: Speci men Type: BLOOD SPECIMENOrdering Facility: [facility] Address: [address] [place] [address] Performed By: #### 2 4323-8 ####[facility] LABORATORYCLIA [id number] [place] [address] [place] Bilirubin [Mass/Vol] 0.6 mg/dL Normal 0.2-1.3 [facility] Comment on above: Order Comment: Speci men Type: BLOOD SPECIMENOrdering Facility: [facility] Address: [address] [place] [address] Performed By: #### 2 4323-8 ####[facility] LABORATORYCLIA [id number] [place] [address] [place] Calcium [Mass/Vol] 8.4 mg/dL Low 8.5-10.2 [facility] Comment on above: Order Comment: Speci men Type: BLOOD SPECIMENOrdering Facility: [facility] Address: [address] [place] [address] Performed By: #### 2 4323-8 ####[facility] LABORATORYCLIA [id number] [place] [address] [place] Chloride [Moles/Vol] 99 mmol/L Normal 98-107 [facility] Comment on above: Order Comment: Speci men Type: BLOOD SPECIMENOrdering Facility: [facility] Address: [address] [place] [address] Performed By: #### 2 4323-8 ####[facility] LABORATORYCLIA [id number] [place] [address] [place] CO2 [Moles/Vol] 27 mmol/L Normal 22-30 [facility] Comment on above: Order Comment: Speci men Type: BLOOD SPECIMENOrdering Facility: [facility] Address: [address] [place] [address] Performed By: #### 2 4323-8 ####[facility] LABORATORYCLIA [id number] [place] [address] [place] Creatinine [Mass/Vol] 0.57 mg/dL Low 0.58-0.96 [facility] Comment on above: Order Comment: Speci men Type: BLOOD SPECIMENOrdering Facility: [facility] Address: [address] [place] [address] Performed By: #### 2 4323-8 ####[facility] LABORATORYCLIA [id number] [address] [place] Creatinine and Glomerular filtration rate.predicted panel (S/P/Bld) 93 mL/min/1.73m??? Normal >=60 [facility] Comment on above: Order Comment: Speci men Type: BLOOD SPECIMENOrdering Facility: [facility] Address: [address] [place] [address] Result Comment: Rosana mated Glomerular Filtration Rate [...] actual GFR. Performed By: #### 2 4323-8 ####[facility] LABORATORYCLIA [id number] [place] [address] [place] Glucose [Mass/Vol] 96 mg/dL Normal 74-99 [facility] Comment on above: Order Comment: Antwan rowland Type: BLOOD SPECIMENOrdering Facility: [facility] Address: [address] [place] [address] Result Comment: The [place] Diabetes Association (ADA) provides guidance for cutoff [...] Standards of Medical Care in Diabetes 2016, [place] Diabetes [employer]. Diabetes Care. 2016.39(Suppl 1). Performed By: #### 2 4323-8 ####[facility] LABORATORYCLIA [id number] [place] [id number] [place] Potassium [Moles/Vol] 3.8 mmol/L Normal 3.7-5.1 [facility] Comment on above: Order Comment: Antwan rowland Type: BLOOD SPECIMENOrdering Facility: [facility] Address: [address] [place] [id number] Performed By: #### 2 4323-8 ####[facility] LABORATORYCLIA [id number] [place] [address] [place] Protein [Mass/Vol] 5.2 g/dL Low 6.3-8.0 [facility] Comment on above: Order Comment: Speci men Type: BLOOD SPECIMENOrdering Facility: [facility] Address: [address] [place] [address] Performed By: #### 2 4323-8 ####[facility]ORATORYCLIA [id number] [place] [address] [place] Sodium [Moles/Vol] 135 mmol/L Low 136-144 [facility] Comment on above: Order Comment: Speci men Type: BLOOD SPECIMENOrdering Facility: [facility] Address: [address] [place] [address] Performed By: #### 2 4323-8 ####[facility] LABORATORYCLIA [id number] [place] [address] [place] Urea nitrogen [Mass/Vol] 9 mg/dL Normal 7-21 [facility] Comment on above: Order Comment: Speci men Type: BLOOD SPECIMENOrdering Facility: [facility] Address: [address] [place] [address] Performed By: #### 2 4323-8 ####[facility] LABORATORYCLIA [id number] [place] [address] [place] XR UPPER GI SINGLE CONTRASTo n 11-29-2023 XR UPPER GI SINGLE CONTRAST Normal [facility] ALLIED HEALTHon 11-28-2023 ALLIED HEALTH Normal [facility] CASE MANAGEMon 11-28-2023 CASE MANAGEM Normal [facility] CASE MANAGEM Normal [facility] CASE MANAGEM Normal [facility] CBC panel Auto (Bld)on 11-27 Erythrocyte distribution width (RBC) [Ratio] 15.3 % High 11.5-15.0 [facility] Comment on above: Order Comment: Speci men Type: BLOOD SPECIMENOrdering Facility: [facility] Address: [address] [place] [id number] Performed By: #### 5 8410-2 ####[facility]ORATORYCLIA [id number] [address] [place] Hematocrit (Bld) [Volume fraction] 28.1 % Low 36.0-46.0 [facility] Comment on above: Order Comment: Speci men Type: BLOOD SPECIMENOrdering Facility: [facility] Address: [address] [place] [address] Performed By: #### 5 8410-2 ####[facility] LABORATORYCLIA [id number] [address] STATES OF [facility] Hemoglobin (Bld) [Mass/Vol] 8.8 g/dL Low 11.5-15.5 [facility] Comment on above: Order Comment: Speci men Type: BLOOD SPECIMENOrdering Facility: [facility] Address: [address] [place] [address] Performed By: #### 5 8410-2 ####[facility] LABORATORYCLIA [id number] [address] [place] MCH (RBC) [Entitic mass] 28.4 pg Normal 26.0-34.0 [facility] Comment on above: Order Comment: Speci men Type: BLOOD SPECIMENOrdering Facility: [facility] Address: [address] [place] [address] Performed By: #### 5 8410-2 ####[facility] LABORATORYCLIA [id number] [address] [place] MCHC (RBC) [Mass/Vol] 31.3 g/dL Normal 30.5-36.0 [facility] Comment on above: Order Comment: Speci men Type: BLOOD SPECIMENOrdering Facility: [facility] Address: [address] [place] [address] Performed By: #### 5 8410-2 ####[facility] LABORATORYCLIA [id number] [address] [place] MCV (RBC) [Entitic vol] 90.6 fL Normal 80.0-100.0 [facility] Comment on above: Order Comment: Speci men Type: BLOOD SPECIMENOrdering Facility: [facility] Address: [address] [place] [address] Performed By: #### 5 8410-2 ####[facility] LABORATORYCLIA [id number] [address] [place] Nucleated RBC (Bld) [#/Vol] 10*3/uL Normal <0.01 [facility] Comment on above: Order Comment: Speci men Type: BLOOD SPECIMENOrdering Facility: [facility] Address: [address] [place] [address] Performed By: #### 5 8410-2 ####[facility] LABORATORYCLIA [id number] [place] Platelet mean volume (Bld) [Entitic vol] 10.9 fL Normal 9.0-12.7 [facility] Comment on above: Order Comment: Speci men Type: BLOOD SPECIMENOrdering Facility: [facility] Address: [address] [place] [address] Performed By: #### 5 8410-2 ####[facility] LABORATORYCLIA [id number] [address] Platelets (Bld) [#/Vol] 239 10*3/uL Normal 150-400 [facility] Comment on above: Order Comment: Speci men Type: BLOOD SPECIMENOrdering Facility: [facility] Address: [address] [place] [address] Performed By: #### 5 8410-2 ####[facility] LABORATORYCLIA [id number] [address] [place] RBC (Bld) [#/Vol] 3.10 10*6/uL Low 3.90-5.20 [facility] Comment on above: Order Comment: Speci men Type: BLOOD SPECIMENOrdering Facility: [facility] Address: [address] [place] [address] Performed By: #### 5 8410-2 ####[facility] LABORATORYCLIA [id number] [address] [place] WBC (Bld) [#/Vol] 14.16 10*3/uL High 3.70-11.00 [facility] Comment on above: Order Comment: Speci men Type: BLOOD SPECIMENOrdering Facility: [facility] Address: [address] [place] [address] Performed By: #### 5 8410-2 ####[facility] LABORATORYCLIA [id number] [address] [place] CONSULT PROGon 11-28-2023 CONSULT PROG Normal [facility] Comprehensive metabolic 2000 panelon 11-28-2023 Albumin [Mass/Vol] 3.0 g/dL Low 3.9-4.9 [facility] Comment on above: Order Comment: Speci men Type: BLOOD SPECIMENOrdering Facility: [facility] Address: [address] [place] [address] Performed By: #### 2 4323-8 ####[facility] LABORATORYCLIA [id number] [address] [place] ALP [Catalytic activity/Vol] 85 U/L Normal 34-123 [facility] Comment on above: Order Comment: Speci men Type: BLOOD SPECIMENOrdering Facility: [facility] Address: [address] [place] [address] Performed By: #### 2 4323-8 ####[facility] LABORATORYCLIA [id number] [place] [address] [place] ALT With P-5'-P [Catalytic activity/Vol] 444 U/L High 7-38 [facility] Comment on above: Order Comment: Speci men Type: BLOOD SPECIMENOrdering Facility: [facility] Address: [address] [place] [address] Performed By: #### 2 4323-8 ####[facility] LABORATORYCLIA [id number] [address] [place] Anion gap [Moles/Vol] 9 mmol/L Normal 8-15 [facility] Comment on above: Order Comment: Speci men Type: BLOOD SPECIMENOrdering Facility: [facility] Address: [address] [place] [address] Performed By: #### 2 4323-8 ####[facility] LABORATORYCLIA [id number] [place] [address] [place] AST With P-5'-P [Catalytic activity/Vol] 295 U/L High 13-35 [facility] Comment on above: Order Comment: Speci men Type: BLOOD SPECIMENOrdering Facility: [facility] Address: [address] [place] [address] Performed By: #### 2 4323-8 ####[facility] LABORATORYCLIA [id number] [place] [address] [place] Bilirubin [Mass/Vol] 0.5 mg/dL Normal 0.2-1.3 [facility] Comment on above: Order Comment: Speci men Type: BLOOD SPECIMENOrdering Facility: [facility] Address: [address] [place] [address] Performed By: #### 2 4323-8 ####[facility] LABORATORYCLIA [id number] [address] [place] Calcium [Mass/Vol] 8.6 mg/dL Normal 8.5-10.2 [facility] Comment on above: Order Comment: Speci men Type: BLOOD SPECIMENOrdering Facility: [facility] Address: [address] [place] [address] Performed By: #### 2 4323-8 ####[facility] LABORATORYCLIA [id number] [place] [address] [place] Chloride [Moles/Vol] 101 mmol/L Normal 98-107 [facility] Comment on above: Order Comment: Speci men Type: BLOOD SPECIMENOrdering Facility: [facility] Address: [address] [place] [address] Performed By: #### 2 4323-8 ####[facility] LABORATORYCLIA [id number] [place] [address] [place] CO2 [Moles/Vol] 26 mmol/L Normal 22-30 [facility] Comment on above: Order Comment: Speci men Type: BLOOD SPECIMENOrdering Facility: [facility] Address: [address] [place] [address] Performed By: #### 2 4323-8 ####[facility]THCLIA [id number] [place] [id number] [place] [facility] Creatinine [Mass/Vol] 0.65 mg/dL Normal 0.58-0.96 [facility] Comment on above: Order Comment: Antwan rowland Type: BLOOD SPECIMENOrdering Facility: [facility] Address: [address] [place] [address] Performed By: #### 2 4323-8 ####[facility]THCLIA [id number] [address] Creatinine and Glomerular filtration rate.predicted panel (S/P/Bld) 90 mL/min/1.73m??? Normal >=60 [facility] Comment on above: Order Comment: Antwan rowland Type: BLOOD SPECIMENOrdering Facility: [facility] Address: [address] [place] [address] Result Comment: Rosana mated Glomerular Filtration Rate [...] actual GFR. Performed By: #### 2 4323-8 ####[facility] LABORATORYIA [id number] [address] STATES OF [facility] Glucose [Mass/Vol] 97 mg/dL Normal 74-99 [facility] Comment on above: Order Comment: Antwan rowland Type: BLOOD SPECIMENOrdering Facility: [facility] Address: [address] [place] [address] Result Comment: The [place] Diabetes Association (ADA) provides guidance for cutoff [...] Standards of Medical Care in Diabetes 2016, [place] Diabetes [employer]. Diabetes Care. 2016.39(Suppl 1). Performed By: #### 2 4323-8 ####[facility]ORATORYCLIA [id number] [place] [address] [place] Potassium [Moles/Vol] 4.3 mmol/L Normal 3.7-5.1 [facility] Comment on above: Order Comment: Speci [facility] Type: BLOOD SPECIMENOrdering Facility: [facility] Address: [address] [place] [address] Performed By: #### 2 4323-8 ####[facility]ORATORYCLIA [id number] [place] [address] [place] Protein [Mass/Vol] 5.4 g/dL Low 6.3-8.0 [facility] Comment on above: Order Comment: Speci [facility] Type: BLOOD SPECIMENOrdering Facility: [facility] Address: [address] [place] [address] Performed By: #### 2 4323-8 ####[facility]ORATORYCLIA [id number] [place] [address] [place] Sodium [Moles/Vol] 136 mmol/L Normal 136-144 [facility] Comment on above: Order Comment: Speci [facility] Type: BLOOD SPECIMENOrdering Facility: [facility] Address: [address] [place] [address] Performed By: #### 2 4323-8 ####[facility]ORATORYCLIA [id number] [place] [address] [place] Urea nitrogen [Mass/Vol] 10 mg/dL Normal 7-21 [facility] Comment on above: Order Comment: Speci [facility] Type: BLOOD SPECIMENOrdering Facility: [facility] Address: [address] [place] [address] Performed By: #### 2 4323-8 ####[facility]ORATORYCLIA [id number] [place] [address] [place] NUTRITIONon 11-28-2023 NUTRITION Normal [facility] THERAPY NTon 11-28-2023 THERAPY NT Normal [facility] THERAPY NT Normal [facility] Bilirub Conj SerPl-mCncon Bilirubin.conjugated [Mass/Vol] 0.3 mg/dL High <0.2 [facility] Comment on above: Order Comment: Speci men Type: BLOOD SPECIMENOrdering Facility: [facility] Address: [address] [place] [address] Performed By: #### 1 5152-2, 66276-3 ####[facility]ORATORYCLIA [id number] [address] [place] CBC panel Auto (Bld)on 11-26 Erythrocyte distribution width (RBC) [Ratio] 15.3 % High 11.5-15.0 [facility] Comment on above: Order Comment: Speci men Type: BLOOD SPECIMENOrdering Facility: [facility] Address: [address] [place] [address] Performed By: #### 5 8410-2 ####[facility] LABORATORYCLIA [id number] [address] [place] Hematocrit (Bld) [Volume fraction] 35.2 % Low 36.0-46.0 [facility] Comment on above: Order Comment: Speci men Type: BLOOD SPECIMENOrdering Facility: [facility] Address: [address] [place] [address] Performed By: #### 5 8410-2 ####[facility]ORATORYCLIA [id number] [address] [place] Hemoglobin (Bld) [Mass/Vol] 10.9 g/dL Low 11.5-15.5 [facility] Comment on above: Order Comment: Speci men Type: BLOOD SPECIMENOrdering Facility: [facility] Address: [address] [place] [address] Performed By: #### 5 8410-2 ####[facility]ORATORYCLIA [id number] [address] MCH (RBC) [Entitic mass] 28.8 pg Normal 26.0-34.0 [facility] Comment on above: Order Comment: Speci men Type: BLOOD SPECIMENOrdering Facility: [facility] Address: [address] [place] [address] Performed By: #### 5 8410-2 ####[facility]ORATORYCLIA [id number] [address] [place] MCHC (RBC) [Mass/Vol] 31.0 g/dL Normal 30.5-36.0 [facility] Comment on above: Order Comment: Speci men Type: BLOOD SPECIMENOrdering Facility: [facility] Address: [address] [place] [address] Performed By: #### 5 8410-2 ####[facility]ORATORYCLIA [id number] [address] STATES [facility] MCV (RBC) [Entitic vol] 92.9 fL Normal 80.0-100.0 [facility] Comment on above: Order Comment: Speci men Type: BLOOD SPECIMENOrdering Facility: [facility] Address: [address] [place] [address] Performed By: #### 5 8410-2 ####[facility]ORATORYCLIA [id number] [address] Nucleated RBC (Bld) [#/Vol] 10*3/uL Normal <0.01 [facility] Comment on above: Order Comment: Speci men Type: BLOOD SPECIMENOrdering Facility: [facility] Address: [address] [place] [address] Performed By: #### 5 8410-2 ####[facility]ORATORYCLIA [id number] [address] Platelet mean volume (Bld) [Entitic vol] 10.8 fL Normal 9.0-12.7 [facility] Comment on above: Order Comment: Speci men Type: BLOOD SPECIMENOrdering Facility: [facility] Address: [address] [place] [address] Performed By: #### 5 8410-2 ####[facility] LABORATORYCLIA [id number] [address] OF [facility] Platelets (Bld) [#/Vol] 257 10*3/uL Normal 150-400 [facility] Comment on above: Order Comment: Speci men Type: BLOOD SPECIMENOrdering Facility: [facility] Address: [address] [place] [address] Performed By: #### 5 8410-2 ####[facility]ORATORYCLIA [id number] [address] [place] RBC (Bld) [#/Vol] 3.79 10*6/uL Low 3.90-5.20 [facility] Comment on above: Order Comment: Speci men Type: BLOOD SPECIMENOrdering Facility: [facility] Address: [address] [place] [address] Performed By: #### 5 8410-2 ####[facility]ORATORYCLIA [id number] [address] WBC (Bld) [#/Vol] 13.21 10*3/uL High 3.70-11.00 [facility] Comment on above: Order Comment: Speci men Type: BLOOD SPECIMENOrdering Facility: [facility] Address: [address] [place] [address] Performed By: #### 5 8410-2 ####[facility]ORATORYCLIA [id number] [address] CONSULT PROGon 11-27-2023 CONSULT PROG Normal [facility] Comprehensive metabolic 2000 panelon 11-27-2023 Albumin [Mass/Vol] 3.0 g/dL Low 3.9-4.9 [facility] Comment on above: Order Comment: Speci men Type: BLOOD SPECIMENOrdering Facility: [facility] Address: [address] [place] [address] Performed By: #### 1 5152-2, 86602-8 ####[facility]ORATORYCLIA [id number] [place] [address] [place] ALP [Catalytic activity/Vol] 94 U/L Normal 34-123 [facility] Comment on above: Order Comment: Speci men Type: BLOOD SPECIMENOrdering Facility: [facility] Address: [address] [place] [address] Performed By: #### 1 5152-2, 67155-7 ####[facility]ORATORYCLIA [id number] [place] [address] [place] ALT With P-5'-P [Catalytic activity/Vol] 444 U/L High 7-38 [facility] Comment on above: Order Comment: Speci men Type: BLOOD SPECIMENOrdering Facility: [facility] Address: [address] [place] [address] Performed By: #### 1 5152-2, 55342-5 ####[facility] LABORATORYCLIA [id number] [address] [place] Anion gap [Moles/Vol] 12 mmol/L Normal 8-15 [facility] Comment on above: Order Comment: Speci men Type: BLOOD SPECIMENOrdering Facility: [facility] Address: [address] [place] [address] Performed By: #### 1 5152-2, 88259-8 ####[facility] LABORATORYCLIA [id number] [place] [address] [place] AST With P-5'-P [Catalytic activity/Vol] 424 U/L High 13-35 [facility] Comment on above: Order Comment: Speci men Type: BLOOD SPECIMENOrdering Facility: [facility] Address: [address] [place] [address] Performed By: #### 1 5152-2, 62856-2 ####[facility]ORATORYCLIA [id number] [place] [address] [place] Bilirubin [Mass/Vol] 0.6 mg/dL Normal 0.2-1.3 [facility] Comment on above: Order Comment: Speci men Type: BLOOD SPECIMENOrdering Facility: [facility] Address: [address] [place] [address] Performed By: #### 1 5152-2, 25643-3 ####[facility]ORATORYCLIA [id number] [place] [address] [place] Calcium [Mass/Vol] 8.5 mg/dL Normal 8.5-10.2 [facility] Comment on above: Order Comment: Speci men Type: BLOOD SPECIMENOrdering Facility: [facility] Address: [address] [place] [address] Performed By: #### 1 5152-2, 24715-1 ####[facility] LABORATORYCLIA [id number] [place] [address] [place] Chloride [Moles/Vol] 103 mmol/L Normal 98-107 [facility] Comment on above: Order Comment: Speci men Type: BLOOD SPECIMENOrdering Facility: [facility] Address: [address] [place] [address] Performed By: #### 1 5152-2, 85675-5 ####[facility] LABORATORYCLIA [id number] [place] [address] [place] CO2 [Moles/Vol] 23 mmol/L Normal 22-30 [facility] Comment on above: Order Comment: Speci men Type: BLOOD SPECIMENOrdering Facility: [facility] Address: [address] [place] [address] Performed By: #### 1 5152-2, ####[facility]ATORYCLIA [id number] [place] [address] [place] Creatinine [Mass/Vol] 0.68 mg/dL Normal 0.58-0.96 [facility] Comment on above: Order Comment: Speci men Type: BLOOD SPECIMENOrdering Facility: [facility] Address: [address] [place] [address] Performed By: #### 1 5152-2, 92988-7 ####[facility]ATORYCLIA [id number] [address] [place] Creatinine and Glomerular filtration rate.predicted panel (S/P/Bld) 89 mL/min/1.73m??? Normal >=60 [facility] Comment on above: Order Comment: Antwan rowland Type: BLOOD SPECIMENOrdering Facility: [facility] Address: [address] [place] [address] Result Comment: Rosana mated Glomerular Filtration Rate [...] actual GFR. Performed By: #### 1 5152-2, 80131-2 ####[facility] LABORATORYCLIA [id number] [place] [address] [place] Glucose [Mass/Vol] 135 mg/dL High 74-99 [facility] Comment on above: Order Comment: Antwan rowland Type: BLOOD SPECIMENOrdering Facility: [facility] Address: [address] [place] [address] Result Comment: The [place] Diabetes Association (ADA) provides guidance for cutoff [...] Standards of Medical Care in Diabetes 2016, [place] Diabetes Association. Diabetes Care. 2016.39(Suppl 1). Performed By: #### 1 5152-2, 68970-7 ####[facility]ORATORYCLIA [id number] [place] [address] [place] Potassium [Moles/Vol] 4.5 mmol/L Normal 3.7-5.1 [facility] Comment on above: Order Comment: Speci men Type: BLOOD SPECIMENOrdering Facility: [facility] Address: [address] [place] [address] Performed By: #### 1 5152-2, 23470-9 ####[facility]ORATORYCLIA [id number] [address] [place] Protein [Mass/Vol] 5.4 g/dL Low 6.3-8.0 [facility] Comment on above: Order Comment: Speci men Type: BLOOD SPECIMENOrdering Facility: [facility] Address: [address] [place] [address] Performed By: #### 1 5152-2, 98039-2 ####[facility]ORATORYCLIA [id number] [place] [address] [place] Sodium [Moles/Vol] 138 mmol/L Normal 136-144 [facility] Comment on above: Order Comment: Speci men Type: BLOOD SPECIMENOrdering Facility: [facility] Address: [address] [place] [address] Performed By: #### 1 5152-2, 85958-5 ####[facility]ORATORYCLIA [id number] [place] [address] [place] Urea nitrogen [Mass/Vol] 11 mg/dL Normal 7-21 [facility] Comment on above: Order Comment: Speci men Type: BLOOD SPECIMENOrdering Facility: [facility] Address: [address] [place] [address] Performed By: #### 1 5152-2, 07869-3 ####[facility]ORATORYCLIA [id number] [place] [address] [place] ANES POSTPROC EVALon 024 ANES POSTPROC EVAL Normal [facility] ANES PRE-OPon 11-26-2023 ANES PRE-OP Normal [facility] BRIEF OP NOTon 11-26-2023 BRIEF OP NOT Normal [facility] CBC panel Auto (Bld)on 11-25 Erythrocyte distribution width (RBC) [Ratio] 14.4 % Normal 11.5-15.0 [facility] Comment on above: Order Comment: Speci men Type: BLOOD SPECIMENOrdering Facility: [facility] Address: [address] [place] [address] Performed By: #### 5 8410-2 ####[facility] LABORATORYCLIA [id number] [address] STATES OF [facility] Hematocrit (Bld) [Volume fraction] 35.6 % Low 36.0-46.0 [facility] Comment on above: Order Comment: Speci men Type: BLOOD SPECIMENOrdering Facility: [facility] Address: [address] [place] [address] Performed By: #### 5 8410-2 ####[facility]ORATORYCLIA [id number] [address] STATES OF [facility] Hemoglobin (Bld) [Mass/Vol] 11.3 g/dL Low 11.5-15.5 [facility] Comment on above: Order Comment: Speci men Type: BLOOD SPECIMENOrdering Facility: [facility] Address: [address] [place] [address] Performed By: #### 5 8410-2 ####[facility]ORATORYCLIA [id number] [address] [place] MCH (RBC) [Entitic mass] 28.5 pg Normal 26.0-34.0 [facility] Comment on above: Order Comment: Speci men Type: BLOOD SPECIMENOrdering Facility: [facility] Address: [address] [place] [address] Performed By: #### 5 8410-2 ####[facility]ORATORYCLIA [id number] [address] [place] MCHC (RBC) [Mass/Vol] 31.7 g/dL Normal 30.5-36.0 [facility] Comment on above: Order Comment: Speci men Type: BLOOD SPECIMENOrdering Facility: [facility] Address: [address] [place] [address] Performed By: #### 5 8410-2 ####[facility]ORATORYCLIA [id number] [address] OF [facility] MCV (RBC) [Entitic vol] 89.9 fL Normal 80.0-100.0 [facility] Comment on above: Order Comment: Speci men Type: BLOOD SPECIMENOrdering Facility: [facility] Address: [address] [place] [address] Performed By: #### 5 8410-2 ####[facility]ORATORYCLIA [id number] [address] [place] Nucleated RBC (Bld) [#/Vol] 10*3/uL Normal <0.01 [facility] Comment on above: Order Comment: Speci men Type: BLOOD SPECIMENOrdering Facility: [facility] Address: [address] [place] [address] Performed By: #### 5 8410-2 ####[facility]ORATORYCLIA [id number] [address] [place] Platelet mean volume (Bld) [Entitic vol] 10.7 fL Normal 9.0-12.7 [facility] Comment on above: Order Comment: Speci men Type: BLOOD SPECIMENOrdering Facility: [facility] Address: [address] [place] [address] Performed By: #### 5 8410-2 ####[facility]ORATORYCLIA [id number] [address] [place] Platelets (Bld) [#/Vol] 224 10*3/uL Normal 150-400 [facility] Comment on above: Order Comment: Speci men Type: BLOOD SPECIMENOrdering Facility: [facility] Address: [address] [place] [address] Performed By: #### 5 8410-2 ####[facility]ORATORYCLIA [id number] [address] [place] RBC (Bld) [#/Vol] 3.96 10*6/uL Normal 3.90-5.20 [facility] Comment on above: Order Comment: Speci men Type: BLOOD SPECIMENOrdering Facility: [facility] Address: [address] [place] [address] Performed By: #### 5 8410-2 ####[facility]ORATORYCLIA [id number] [address] WBC (Bld) [#/Vol] 9.51 10*3/uL Normal 3.70-11.00 [facility] Comment on above: Order Comment: Speci men Type: BLOOD SPECIMENOrdering Facility: [facility] Address: [facility] [place] [address] Performed By: #### 5 8410-2 ####[facility]ORATORYCLIA [id number] [address] Comprehensive metabolic 2000 panelon 11-26-2023 Albumin [Mass/Vol] 3.8 g/dL Low 3.9-4.9 [facility] Comment on above: Order Comment: Speci men Type: BLOOD SPECIMENOrdering Facility: [facility] Address: [address] [place] [address] Performed By: #### 2 4323-8 ####[facility]ORATORYCLIA [id number] [address] [place] ALP [Catalytic activity/Vol] 83 U/L Normal 34-123 [facility] Comment on above: Order Comment: Speci men Type: BLOOD SPECIMENOrdering Facility: [facility] Address: [address] [place] [address] Performed By: #### 2 4323-8 ####[facility]ORATORYCLIA [id number] [address] ALT With P-5'-P [Catalytic activity/Vol] 95 U/L High 7-38 [facility] Comment on above: Order Comment: Speci men Type: BLOOD SPECIMENOrdering Facility: [facility] Address: [facility] [place] [address] Performed By: #### 2 4323-8 ####[facility]ORATORYCLIA [id number] [address] Anion gap [Moles/Vol] 10 mmol/L Normal 8-15 [facility] Comment on above: Order Comment: Speci men Type: BLOOD SPECIMENOrdering Facility: [facility] Address: [address] [place] [address] Performed By: #### 2 4323-8 ####[facility] LABORATORYCLIA [id number] [place] [address] [place] AST With P-5'-P [Catalytic activity/Vol] 78 U/L High 13-35 [facility] Comment on above: Order Comment: Speci men Type: BLOOD SPECIMENOrdering Facility: [facility] Address: [address] [place] [address] Performed By: #### 2 4323-8 ####[facility]ORATORYCLIA [id number] [address] [place] Bilirubin [Mass/Vol] 0.5 mg/dL Normal 0.2-1.3 [facility] Comment on above: Order Comment: Speci men Type: BLOOD SPECIMENOrdering Facility: [facility] Address: [address] [place] [address] Performed By: #### 2 4323-8 ####[facility] LABORATORYCLIA [id number] [address] [place] Calcium [Mass/Vol] 9.5 mg/dL Normal 8.5-10.2 [facility] Comment on above: Order Comment: Speci men Type: BLOOD SPECIMENOrdering Facility: [facility] Address: [address] [place] [address] Performed By: #### 2 4323-8 ####[facility]ATORYCLIA [id number] [place] [address] [place] Chloride [Moles/Vol] 104 mmol/L Normal 98-107 [facility] Comment on above: Order Comment: Speci men Type: BLOOD SPECIMENOrdering Facility: [facility] Address: [address] [place] [address] Performed By: #### 2 4323-8 ####[facility]ATORYCLIA [id number] [address] [place] CO2 [Moles/Vol] 25 mmol/L Normal 22-30 [facility] Comment on above: Order Comment: Speci men Type: BLOOD SPECIMENOrdering Facility: [facility] Address: [address] [place] [address] Performed By: #### 2 4323-8 ####[facility] LABORATORYCLIA [id number] [address] OF [facility] Creatinine [Mass/Vol] 0.72 mg/dL Normal 0.58-0.96 [facility] Comment on above: Order Comment: Speci men Type: BLOOD SPECIMENOrdering Facility: [facility] Address: [address] [place] [address] Performed By: #### 2 4323-8 ####[facility] LABORATORYCLIA [id number] [address] Creatinine and Glomerular filtration rate.predicted panel (S/P/Bld) 86 mL/min/1.73m??? Normal >=60 [facility] Comment on above: Order Comment: Speci men Type: BLOOD SPECIMENOrdering Facility: [facility] Address: [address] [place] [address] Result Comment: Rosana mated Glomerular Filtration Rate [...] actual GFR. Performed By: #### 2 4323-8 ####[facility] LABORATORYCLIA [id number] [address] [facility] Glucose [Mass/Vol] 108 mg/dL High 74-99 [facility] Comment on above: Order Comment: Speci kashif Type: BLOOD SPECIMENOrdering Facility: [facility] Address: [address] [place] [address] Result Comment: The [place] Diabetes Association (ADA) provides guidance for cutoff [...] Standards of Medical Care in Diabetes 2016, [place] Diabetes [employer]. Diabetes Care. 2016.39(Suppl 1). Performed By: #### 2 4323-8 ####[facility]ORATORYCLIA [id number] [place] [address] [place] Potassium [Moles/Vol] 4.2 mmol/L Normal 3.7-5.1 [facility] Comment on above: Order Comment: Speci men Type: BLOOD SPECIMENOrdering Facility: [facility] Address: [address] [place] [address] Performed By: #### 2 4323-8 ####[facility]ORATORYCLIA [id number] [place] [address] [place] Protein [Mass/Vol] 6.8 g/dL Normal 6.3-8.0 [facility] Comment on above: Order Comment: Speci men Type: BLOOD SPECIMENOrdering Facility: [facility] Address: [address] [place] [address] Performed By: #### 2 4323-8 ####[facility]ORATORYCLIA [id number] [place] [address] [place] Sodium [Moles/Vol] 139 mmol/L Normal 136-144 [facility] Comment on above: Order Comment: Speci men Type: BLOOD SPECIMENOrdering Facility: [facility] Address: [address] [place] [address] Performed By: #### 2 4323-8 ####[facility] LABORATORYCLIA [id number] [place] [address] [place] Urea nitrogen [Mass/Vol] 9 mg/dL Normal 7-21 [facility] Comment on above: Order Comment: Speci men Type: BLOOD SPECIMENOrdering Facility: [facility] Address: [address] [place] [address] Performed By: #### 2 4323-8 ####[facility] LABORATORYCLIA [id number] [address] [place] ECG COMPLETEon 11-26-2023 ECG COMPLETE Normal [facility] OPERATIVE NOon 11-26-2023 OPERATIVE NO Normal [facility] SURGICAL PATHOLOGYon 024 BLOCK FOR ADDITIONAL BIOMARKERS/MOLECULAR STUDIES F6 Normal [facility] Comment on above: Order Comment: Speci men Type: TISSUE SPECIMENOrdering Facility: [facility] Address: [address] [place] [address] Performed By: #### S ####[facility]ORATORYCLIA [id number] [address] OF [place] CASE REPORT Normal [facility] Comment on above: Order Comment: Speci men Type: TISSUE SPECIMENOrdering Facility: [facility] Address: [address] [place] [address] Result Comment: Surg ical Pathology Report Case: [id number] Provider: Mikala Jones MD Collected: 11/26/2023 09:34 [...] segment 4B-5 resection Performed By: #### S ####[facility]ORATORYCLIA [id number] [address] STATES OF [facility] CLINICAL HISTORY Normal [facility] Comment on above: Order Comment: Speci men Type: TISSUE SPECIMENOrdering Facility: [facility] Address: [address] [place] [address] Result Comment: Pre- op diagnosis:Biliary obstruction [K83.1] Performed By: #### S ####[facility]ORATORYCLIA [id number] [address] DIAGNOSIS COMMENT Normal [facility] Comment on above: Order Comment: Speci men Type: TISSUE SPECIMENOrdering Facility: [facility] Address: [address] [place] [address] Performed By: #### S ####[facility]ORATORYCLIA [id number] [address] FINAL DIAGNOSIS Normal [facility] Comment on above: Order Comment: Speci men Type: TISSUE SPECIMENOrdering Facility: [facility] Address: [address] [place] [address] Result Comment: A. S mall bowel, duodenal [...] significant pathologic changes. Performed By: #### S ####[facility]ORATORYCLIA [id number] [address] FINAL PERFORMING LAB Normal [facility] Comment on above: Order Comment: Speci men Type: TISSUE SPECIMENOrdering Facility: [facility] Address: [address] [place] [address] Result Comment: Diag nostic interpretation performed at [facility], [address] [place] [address] CLIA# [id number] Director: Sotero Ulloa M.D. Performed By: #### S ####[facility]ORATORYCLIA [id number] [address] [facility] GROSS DESCRIPTION Normal [facility] Comment on above: Order Comment: Speci men Type: TISSUE SPECIMENOrdering Facility: [facility] Address: [address] [place] [address] Result Comment: A. S mall Bowel, Duodenum, BiopsyReceived fresh for intraoperative diagnosis labeled duodenal margin is a 1.2 x 0.5 cm segment of duodenum with a thickness of 0.3 cm. The identifiable mucosa is pink, glistening. The possibly identifiable serosa is smooth with some scantly adherent adipose tissue. Totally submitted on edge in 1 cassette.Gross examination performed at [facility], [address] [place] [address] CLIA# [id number] November 26, 2023 12:12 PMB. Adipose TissueReceived in formalin labeled ventral fat pad is a yellow fatty segment of tissue measuring 11.5 x 8.3 x 2.4 cm. Upon sectioning masses, not are not appreciated. The specimen displays yellow fatty cut surface. [employer] sac in 1 cassette.C. Lymph Node (Specify [...] unremarkable.Tissue is submitted as follows:F1 cystic ductF2-F4 desk representative sections of massF5-6 desk representative sections of mass with apparent extent to capsuleF7-F13 attached segment of small bowel totally submitted with aewjX26-U52 desk representative sections of mass with extension into fatF17 1 possible satellite nodule totally jkcfnaljfK28 1 possible satellite nodule totally kdcovabisF04 1 possible satellite nodule sectioned and totally himpstdmoJ88 desk representative section of superior hepatic qczaptZ56 desk representative section of medial hepatic hfoeoeX21 desk representative section of the lateral hepatic margin Gross examination performed at [facility], [address] [place], [place] [address]KVB November 27, 2023 10:08 AM Performed By: #### S ####[facility]ORATORYCLIA [id number] [address] [place] INTRAOPERATIVE DIAGNOSIS Normal [facility] Comment on above: Order Comment: Conori kashif Type: TISSUE SPECIMENOrdering Facility: [facility] Address: [address] [place] [address] Result Comment: A. S mall Bowel, Duodenum, BiopsyFSA 1: Duodenal margin-benign duodenal tissue, negative for malignancy. (Dr. Ulloa/Dr. Wills)Intraoperative examination performed at [facility], [address] [place] [address] CLIA# [id number] Performed By: #### S ####[facility]ORATORYCLIA [id number] [address] [place] SYNOPTIC REPORT GALLBLADDER Normal [facility] Comment on above: Order Comment: Antwan rowland Type: TISSUE SPECIMENOrdering Facility: [facility] Address: [address] [place] [address] Result Comment: GALL BLADDER: RESECTION/CHOLECYSTECTOMY - All Tnphtkfcx0sy Edition - Protocol posted: 09/27/2020PECIMEN Procedure: En [...] pathology report. pT Category: pT3 pN Category: [id number] FINDINGS Additional Findings: Dysplasia / adenoma Additional Findings: Cholelithiasis Performed By: #### S ####[facility]ORATORYCLIA [id number] [place] [address] [place] ANES POSTPROC EVALon 024 ANES POSTPROC EVAL Normal [facility] ANES PRE-OPon 11-25-2023 ANES PRE-OP Normal [facility] CASE MANAGEMon 11-25-2023 CASE MANAGEM Normal [facility] CBC panel Auto (Bld)on 11-24 Erythrocyte distribution width (RBC) [Ratio] 14.8 % Normal 11.5-15.0 [facility] Comment on above: Order Comment: Speci men Type: BLOOD SPECIMENOrdering Facility: [facility] Address: [address] [place] [address] Performed By: #### 5 8410-2 ####[facility]ORATORYCLIA [id number] [place] [address] [place] Hematocrit (Bld) [Volume fraction] 33.8 % Low 36.0-46.0 [facility] Comment on above: Order Comment: Speci men Type: BLOOD SPECIMENOrdering Facility: [facility] Address: [address] [place] [address] Performed By: #### 5 8410-2 ####[facility]ORATORYCLIA [id number] [address] Hemoglobin (Bld) [Mass/Vol] 10.5 g/dL Low 11.5-15.5 [facility] Comment on above: Order Comment: Speci men Type: BLOOD SPECIMENOrdering Facility: [facility] Address: [address] [place] [address] Performed By: #### 5 8410-2 ####[facility]ORATORYCLIA [id number] [address] MCH (RBC) [Entitic mass] 28.6 pg Normal 26.0-34.0 [facility] Comment on above: Order Comment: Speci men Type: BLOOD SPECIMENOrdering Facility: [facility] Address: [address] [place] [address] Performed By: #### 5 8410-2 ####[facility]ORATORYCLIA [id number] [address] MCHC (RBC) [Mass/Vol] 31.1 g/dL Normal 30.5-36.0 [facility] Comment on above: Order Comment: Speci men Type: BLOOD SPECIMENOrdering Facility: [facility] Address: [address] [place] [address] Performed By: #### 5 8410-2 ####[facility]ORATORYCLIA [id number] [address] MCV (RBC) [Entitic vol] 92.1 fL Normal 80.0-100.0 [facility] Comment on above: Order Comment: Speci men Type: BLOOD SPECIMENOrdering Facility: [facility] Address: [address] [place] [address] Performed By: #### 5 8410-2 ####[facility]ORATORYCLIA [id number] [address] Nucleated RBC (Bld) [#/Vol] 10*3/uL Normal <0.01 [facility] Comment on above: Order Comment: Speci men Type: BLOOD SPECIMENOrdering Facility: [facility] Address: [address] [place] [address] Performed By: #### 5 8410-2 ####[facility]ORATORYCLIA [id number] [address] [place] Platelet mean volume (Bld) [Entitic vol] 10.5 fL Normal 9.0-12.7 [facility] Comment on above: Order Comment: Speci men Type: BLOOD SPECIMENOrdering Facility: [facility] Address: [address] [place] [address] Performed By: #### 5 8410-2 ####[facility]ORATORYCLIA [id number] [address] [place] Platelets (Bld) [#/Vol] 246 10*3/uL Normal 150-400 [facility] Comment on above: Order Comment: Speci men Type: BLOOD SPECIMENOrdering Facility: [facility] Address: [address] [place] [address] Performed By: #### 5 8410-2 ####[facility]ORATORYCLIA [id number] [place] [address] [place] RBC (Bld) [#/Vol] 3.67 10*6/uL Low 3.90-5.20 [facility] Comment on above: Order Comment: Speci men Type: BLOOD SPECIMENOrdering Facility: [facility] Address: [address] [place] [address] Performed By: #### 5 8410-2 ####[facility]ORATORYCLIA [id number] [address] [place] WBC (Bld) [#/Vol] 8.19 10*3/uL Normal 3.70-11.00 [facility] Comment on above: Order Comment: Speci men Type: BLOOD SPECIMENOrdering Facility: [facility] Address: [address] [place] [address] Performed By: #### 5 8410-2 ####[facility]ORATORYCLIA [id number] OF [facility] Comprehensive metabolic 2000 panelon 11-25-2023 Albumin [Mass/Vol] 3.5 g/dL Low 3.9-4.9 [facility] Comment on above: Order Comment: Speci men Type: BLOOD SPECIMENOrdering Facility: [facility] Address: [address] [place] [address] Performed By: #### 2 4323-8 ####[facility]ORATORYCLIA [id number] [address] [place] ALP [Catalytic activity/Vol] 62 U/L Normal 34-123 [facility] Comment on above: Order Comment: Speci men Type: BLOOD SPECIMENOrdering Facility: [facility] Address: [address] [place] [address] Performed By: #### 2 4323-8 ####[facility]ORATORYCLIA [id number] [address] ALT With P-5'-P [Catalytic activity/Vol] 40 U/L High 7-38 [facility] Comment on above: Order Comment: Speci men Type: BLOOD SPECIMENOrdering Facility: [facility] Address: [address] [place] [address] Performed By: #### 2 4323-8 ####[facility]ORATORYCLIA [id number] [address] Anion gap [Moles/Vol] 11 mmol/L Normal 8-15 [facility] Comment on above: Order Comment: Speci men Type: BLOOD SPECIMENOrdering Facility: [facility] Address: [address] [place] [address] Performed By: #### 2 4323-8 ####[facility]ORATORYCLIA [id number] [address] OF [place] AST With P-5'-P [Catalytic activity/Vol] 45 U/L High 13-35 [facility] Comment on above: Order Comment: Speci men Type: BLOOD SPECIMENOrdering Facility: [facility] Address: [address] [place] [address] Performed By: #### 2 4323-8 ####[facility]ORYCLIA [id number] [place] [address] [place] Bilirubin [Mass/Vol] 0.3 mg/dL Normal 0.2-1.3 [facility] Comment on above: Order Comment: Speci men Type: BLOOD SPECIMENOrdering Facility: [facility] Address: [address] [place] [address] Performed By: #### 2 4323-8 ####[facility]ORYCLIA [id number] [place] [address] [place] Calcium [Mass/Vol] 9.0 mg/dL Normal 8.5-10.2 [facility] Comment on above: Order Comment: Speci men Type: BLOOD SPECIMENOrdering Facility: [facility] Address: [address] [place] [address] Performed By: #### 2 4323-8 ####[facility]ORATORYCLIA [id number] [place] [address] [place] Chloride [Moles/Vol] 106 mmol/L Normal 98-107 [facility] Comment on above: Order Comment: Speci men Type: BLOOD SPECIMENOrdering Facility: [facility] Address: [address] [place] [address] Performed By: #### 2 4323-8 ####[facility]ORATORYCLIA [id number] [place] [address] [place] CO2 [Moles/Vol] 26 mmol/L Normal 22-30 [facility] Comment on above: Order Comment: Speci men Type: BLOOD SPECIMENOrdering Facility: [facility] Address: [address] [place] [address] Performed By: #### 2 4323-8 ####[facility]ORATORYCLIA [id number] [address] [place] Creatinine [Mass/Vol] 0.85 mg/dL Normal 0.58-0.96 [facility] Comment on above: Order Comment: Speci men Type: BLOOD SPECIMENOrdering Facility: [facility] Address: [address] [place] [address] Performed By: #### 2 4323-8 ####[facility]CLIA [id number] [place] [id number] [place] Creatinine and Glomerular filtration rate.predicted panel (S/P/Bld) 70 mL/min/1.73m??? Normal >=60 [facility] Comment on above: Order Comment: Antwan rowland Type: BLOOD SPECIMENOrdering Facility: [facility] Address: [address] [place] [address] Result Comment: Rosana mated Glomerular Filtration Rate [...] actual GFR. Performed By: #### 2 4323-8 ####[facility] HOSPITALIA [id number] [place] [address] [place] Glucose [Mass/Vol] 107 mg/dL High 74-99 [facility] Comment on above: Order Comment: Antwan rowland Type: BLOOD SPECIMENOrdering Facility: [facility] Address: [address] [place] [address] Result Comment: The [place] Diabetes Association (ADA) provides guidance for cutoff [...] Standards of Medical Care in Diabetes 2016, [place] Diabetes [employer]. Diabetes Care. 2016.39(Suppl 1). Performed By: #### 2 4323-8 ####[facility]ORATORYCLIA [id number] [place] [address] [place] Potassium [Moles/Vol] 3.6 mmol/L Low 3.7-5.1 [facility] Comment on above: Order Comment: Speci men Type: BLOOD SPECIMENOrdering Facility: [facility] Address: [address] [place] [address] Performed By: #### 2 4323-8 ####[facility]ORYCLIA [id number] [place] [address] [place] Protein [Mass/Vol] 6.1 g/dL Low 6.3-8.0 [facility] Comment on above: Order Comment: Speci men Type: BLOOD SPECIMENOrdering Facility: [facility] Address: [address] [place] [address] Performed By: #### 2 4323-8 ####[facility]ORATORYCLIA [id number] [place] [address] [place] Sodium [Moles/Vol] 143 mmol/L Normal 136-144 [facility] Comment on above: Order Comment: Speci men Type: BLOOD SPECIMENOrdering Facility: [facility] Address: [address] [place] [address] Performed By: #### 2 4323-8 ####[facility]ORATORYCLIA [id number] [place] [address] [place] Urea nitrogen [Mass/Vol] 15 mg/dL Normal 7-21 [facility] Comment on above: Order Comment: Speci men Type: BLOOD SPECIMENOrdering Facility: [facility] Address: [address] [place] [address] Performed By: #### 2 4323-8 ####[facility]ORATORYCLIA [id number] [place] [address] [place] ERCPon 11-25-2023 ERCP Normal [facility] NURSING PROGon 11-25-2023 NURSING PROG Normal [facility] XR ERCP READ ONLYon 11-25-19 24 XR ERCP READ ONLY Normal [facility] ANES POSTPROC EVALon 024 ANES POSTPROC EVAL Normal [facility] CASE MANAGEMon 11-24-2023 CASE MANAGEM Normal [facility] CASE MANAGEM Normal [facility] CBC panel Auto (Bld)on 11-23 Erythrocyte distribution width (RBC) [Ratio] 14.7 % Normal 11.5-15.0 [facility] Comment on above: Order Comment: Speci men Type: BLOOD SPECIMENOrdering Facility: [facility] Address: [address] [place] [address] Performed By: #### 5 8410-2 ####[facility]ORATORYCLIA [id number] [address] STATES OF [facility] Hematocrit (Bld) [Volume fraction] 37.7 % Normal 36.0-46.0 [facility] Comment on above: Order Comment: Speci men Type: BLOOD SPECIMENOrdering Facility: [facility] Address: [address] [place] [address] Performed By: #### 5 8410-2 ####[facility]ORATORYCLIA [id number] [address] [place] Hemoglobin (Bld) [Mass/Vol] 11.8 g/dL Normal 11.5-15.5 [facility] Comment on above: Order Comment: Speci men Type: BLOOD SPECIMENOrdering Facility: [facility] Address: [address] [place] [address] Performed By: #### 5 8410-2 ####[facility]ORATORYCLIA [id number] [address] [place] MCH (RBC) [Entitic mass] 28.8 pg Normal 26.0-34.0 [facility] Comment on above: Order Comment: Speci men Type: BLOOD SPECIMENOrdering Facility: [facility] Address: [address] [place] [address] Performed By: #### 5 8410-2 ####[facility]ORATORYCLIA [id number] [address] [place] MCHC (RBC) [Mass/Vol] 31.3 g/dL Normal 30.5-36.0 [facility] Comment on above: Order Comment: Speci men Type: BLOOD SPECIMENOrdering Facility: [facility] Address: [address] [place] [address] Performed By: #### 5 8410-2 ####[facility]ORATORYCLIA [id number] [address] [place] MCV (RBC) [Entitic vol] 92.0 fL Normal 80.0-100.0 [facility] Comment on above: Order Comment: Speci men Type: BLOOD SPECIMENOrdering Facility: [facility] Address: [address] [place] [address] Performed By: #### 5 8410-2 ####[facility]ORATORYCLIA [id number] [address] [place] Nucleated RBC (Bld) [#/Vol] 10*3/uL Normal <0.01 [facility] Comment on above: Order Comment: Speci men Type: BLOOD SPECIMENOrdering Facility: [facility] Address: [address] [place] [address] Performed By: #### 5 8410-2 ####[facility]ORATORYCLIA [id number] [address] [place] Platelet mean volume (Bld) [Entitic vol] 10.3 fL Normal 9.0-12.7 [facility] Comment on above: Order Comment: Speci men Type: BLOOD SPECIMENOrdering Facility: [facility] Address: [address] [place] [address] Performed By: #### 5 8410-2 ####[facility]ORATORYCLIA [id number] [address] [place] Platelets (Bld) [#/Vol] 283 10*3/uL Normal 150-400 [facility] Comment on above: Order Comment: Speci men Type: BLOOD SPECIMENOrdering Facility: [facility] Address: [address] [place] [address] Performed By: #### 5 8410-2 ####[facility]ORATORYCLIA [id number] [address] [place] RBC (Bld) [#/Vol] 4.10 10*6/uL Normal 3.90-5.20 [facility] Comment on above: Order Comment: Speci men Type: BLOOD SPECIMENOrdering Facility: [facility] Address: [address] [place] [address] Performed By: #### 5 8410-2 ####[facility]ORATORYCLIA [id number] [place] [address] [place] [facility] WBC (Bld) [#/Vol] 6.90 10*3/uL Normal 3.70-11.00 [facility] Comment on above: Order Comment: Speci men Type: BLOOD SPECIMENOrdering Facility: [facility] Address: [address] [place] [address] Performed By: #### 5 8410-2 ####[facility] LABORATORYCLIA [id number] [address] CONSULT PROGon 11-24-2023 CONSULT PROG Normal [facility] Comprehensive metabolic 2000 panelon 11-24-2023 Albumin [Mass/Vol] 3.9 g/dL Normal 3.9-4.9 [facility] Comment on above: Order Comment: Speci men Type: BLOOD SPECIMENOrdering Facility: [facility] Address: [address] [place] [address] Performed By: #### 2 4323-8 ####[facility] LABORATORYCLIA [id number] [address] STATES OF [facility] ALP [Catalytic activity/Vol] 67 U/L Normal 34-123 [facility] Comment on above: Order Comment: Speci men Type: BLOOD SPECIMENOrdering Facility: [facility] Address: [address] [place] [address] Performed By: #### 2 4323-8 ####[facility] LABORATORYCLIA [id number] [address] [place] ALT With P-5'-P [Catalytic activity/Vol] 30 U/L Normal 7-38 [facility] Comment on above: Order Comment: Speci men Type: BLOOD SPECIMENOrdering Facility: [facility] Address: [address] [place] [address] Performed By: #### 2 4323-8 ####[facility] LABORATORYCLIA [id number] [place] [address] [place] Anion gap [Moles/Vol] 13 mmol/L Normal 8-15 [facility] Comment on above: Order Comment: Speci men Type: BLOOD SPECIMENOrdering Facility: [facility] Address: [address] [place] [address] Performed By: #### 2 4323-8 ####[facility] LABORATORYCLIA [id number] [address] [place] AST With P-5'-P [Catalytic activity/Vol] 36 U/L High 13-35 [facility] Comment on above: Order Comment: Speci men Type: BLOOD SPECIMENOrdering Facility: [facility] Address: [address] [place] [address] Performed By: #### 2 4323-8 ####[facility] LABORATORYCLIA [id number] [place] [address] [place] Bilirubin [Mass/Vol] 0.4 mg/dL Normal 0.2-1.3 [facility] Comment on above: Order Comment: Speci men Type: BLOOD SPECIMENOrdering Facility: [facility] Address: [address] [place] [address] Performed By: #### 2 4323-8 ####[facility] LABORATORYCLIA [id number] [place] [address] [place] Calcium [Mass/Vol] 9.4 mg/dL Normal 8.5-10.2 [facility] Comment on above: Order Comment: Speci men Type: BLOOD SPECIMENOrdering Facility: [facility] Address: [address] [place] [address] Performed By: #### 2 4323-8 ####[facility] LABORATORYCLIA [id number] [place] [address] [place] Chloride [Moles/Vol] 104 mmol/L Normal 98-107 [facility] Comment on above: Order Comment: Speci men Type: BLOOD SPECIMENOrdering Facility: [facility] Address: [address] [place] [address] Performed By: #### 2 4323-8 ####[facility] LABORATORYCLIA [id number] [address] OF [facility] CO2 [Moles/Vol] 26 mmol/L Normal 22-30 [facility] Comment on above: Order Comment: Speci men Type: BLOOD SPECIMENOrdering Facility: [facility] Address: [address] [place] [address] Performed By: #### 2 4323-8 ####[facility]CL[facility] [id number] [address] Creatinine [Mass/Vol] 0.80 mg/dL Normal 0.58-0.96 [facility] Comment on above: Order Comment: Speci men Type: BLOOD SPECIMENOrdering Facility: [facility] Address: [address] [place] [address] Performed By: #### 2 4323-8 ####[facility]ORATORYCLIA [id number] [address] Creatinine and Glomerular filtration rate.predicted panel (S/P/Bld) 76 mL/min/1.73m??? Normal >=60 [facility] Comment on above: Order Comment: Speci men Type: BLOOD SPECIMENOrdering Facility: [facility] Address: [address] [place] [address] Result Comment: Rosana mated Glomerular Filtration Rate [...] actual GFR. Performed By: #### 2 4323-8 ####[facility] LABORATORYCLIA [id number] [place] [address] [place] Glucose [Mass/Vol] 98 mg/dL Normal 74-99 [facility] Comment on above: Order Comment: Speci men Type: BLOOD SPECIMENOrdering Facility: [facility] Address: [address] [place] [address] Result Comment: The [place] Diabetes Association (ADA) provides guidance for cutoff [...] Standards of Medical Care in Diabetes 2016, [place] Diabetes Association. Diabetes Care. 2016.39(Suppl 1). Performed By: #### 2 4323-8 ####[facility]ORATORYCLIA [id number] [place] [address] [place] Potassium [Moles/Vol] 3.9 mmol/L Normal 3.7-5.1 [facility] Comment on above: Order Comment: Speci men Type: BLOOD SPECIMENOrdering Facility: [facility] Address: [address] [place] [address] Performed By: #### 2 4323-8 ####[facility]ORATORYCLIA [id number] [place] [address] [place] Protein [Mass/Vol] 6.8 g/dL Normal 6.3-8.0 [facility] Comment on above: Order Comment: Speci men Type: BLOOD SPECIMENOrdering Facility: [facility] Address: [address] [place] [address] Performed By: #### 2 4323-8 ####[facility] LABORATORYCLIA [id number] [place] [address] [place] Sodium [Moles/Vol] 143 mmol/L Normal 136-144 [facility] Comment on above: Order Comment: Speci men Type: BLOOD SPECIMENOrdering Facility: [facility] Address: [address] [place] [address] Performed By: #### 2 4323-8 ####[facility] LABORATORYCLIA [id number] [address] STATES [facility] Urea nitrogen [Mass/Vol] 9 mg/dL Normal 7-21 [facility] Comment on above: Order Comment: Speci men Type: BLOOD SPECIMENOrdering Facility: [facility] Address: [address] [place] [address] Performed By: #### 2 4323-8 ####[facility] LABORATORYCLIA [id number] [address] CBC panel Auto (Bld)on 11-22 Erythrocyte distribution width (RBC) [Ratio] 14.5 % Normal 11.5-15.0 [facility] Comment on above: Order Comment: Speci men Type: BLOOD SPECIMENOrdering Facility: [facility] Address: [address] [place] [address] Performed By: #### 5 8410-2 ####[facility] LABORATORYCLIA [id number] [address] Hematocrit (Bld) [Volume fraction] 35.2 % Low 36.0-46.0 [facility] Comment on above: Order Comment: Speci men Type: BLOOD SPECIMENOrdering Facility: [facility] Address: [address] [place] [address] Performed By: #### 5 8410-2 ####[facility] LABORATORYCLIA [id number] [address] STATES [facility] Hemoglobin (Bld) [Mass/Vol] 11.1 g/dL Low 11.5-15.5 [facility] Comment on above: Order Comment: Speci men Type: BLOOD SPECIMENOrdering Facility: [facility] Address: [address] [place] [address] Performed By: #### 5 8410-2 ####[facility] LABORATORYCLIA [id number] [address] MCH (RBC) [Entitic mass] 28.8 pg Normal 26.0-34.0 [facility] Comment on above: Order Comment: Speci men Type: BLOOD SPECIMENOrdering Facility: [facility] Address: [address] [place] [address] Performed By: #### 5 8410-2 ####[facility] LABORATORYCLIA [id number] [address] [place] MCHC (RBC) [Mass/Vol] 31.5 g/dL Normal 30.5-36.0 [facility] Comment on above: Order Comment: Speci men Type: BLOOD SPECIMENOrdering Facility: [facility] Address: [address] [place] [address] Performed By: #### 5 8410-2 ####[facility] LABORATORYCLIA [id number] [address] STATES OF [facility] MCV (RBC) [Entitic vol] 91.4 fL Normal 80.0-100.0 [facility] Comment on above: Order Comment: Speci men Type: BLOOD SPECIMENOrdering Facility: [facility] Address: [address] [place] [address] Performed By: #### 5 8410-2 ####[facility] LABORATORYCLIA [id number] [address] Nucleated RBC (Bld) [#/Vol] 10*3/uL Normal <0.01 [facility] Comment on above: Order Comment: Speci men Type: BLOOD SPECIMENOrdering Facility: [facility] Address: [address] [place] [address] Performed By: #### 5 8410-2 ####[facility] LABORATORYCLIA [id number] [address] Platelet mean volume (Bld) [Entitic vol] 10.0 fL Normal 9.0-12.7 [facility] Comment on above: Order Comment: Speci men Type: BLOOD SPECIMENOrdering Facility: [facility] Address: [address] [place] [address] Performed By: #### 5 8410-2 ####[facility] LABORATORYCLIA [id number] [place], [place] [address] [place] [address] [place] [address] [facility] Platelets (Bld) [#/Vol] 259 10*3/uL Normal 150-400 [facility] Comment on above: Order Comment: Speci men Type: BLOOD SPECIMENOrdering Facility: [facility] Address: [address] [place] [address] Performed By: #### 5 8410-2 ####[facility]ORATORYCLIA [id number] [address] STATES OF [facility] RBC (Bld) [#/Vol] 3.85 10*6/uL Low 3.90-5.20 [facility] Comment on above: Order Comment: Speci men Type: BLOOD SPECIMENOrdering Facility: [facility] Address: [address] [place] [address] Performed By: #### 5 8410-2 ####[facility] LABORATORYCLIA [id number] [address] WBC (Bld) [#/Vol] 5.81 10*3/uL Normal 3.70-11.00 [facility] Comment on above: Order Comment: Speci men Type: BLOOD SPECIMENOrdering Facility: [facility] Address: [address] [place] [address] Performed By: #### 5 8410-2 ####[facility] LABORATORYCLIA [id number] [address] Comprehensive metabolic 2000 panelon 11-23-2023 Albumin [Mass/Vol] 3.5 g/dL Low 3.9-4.9 [facility] Comment on above: Order Comment: Speci men Type: BLOOD SPECIMENOrdering Facility: [facility] Address: [address] [place] [address] Performed By: #### 2 4323-8 ####[facility] LABORATORYCLIA [id number] [address] OF [place] ALP [Catalytic activity/Vol] 59 U/L Normal 34-123 [facility] Comment on above: Order Comment: Speci men Type: BLOOD SPECIMENOrdering Facility: [facility] Address: [address] [place] [address] Performed By: #### 2 4323-8 ####[facility] LABORATORYCLIA [id number] [address] [place] ALT With P-5'-P [Catalytic activity/Vol] 24 U/L Normal 7-38 [facility] Comment on above: Order Comment: Speci men Type: BLOOD SPECIMENOrdering Facility: [facility] Address: [address] [place] [address] Performed By: #### 2 4323-8 ####[facility] LABORATORYCLIA [id number] [address] Anion gap [Moles/Vol] 8 mmol/L Normal 8-15 [facility] Comment on above: Order Comment: Speci men Type: BLOOD SPECIMENOrdering Facility: [facility] Address: [address] [place] [address] Performed By: #### 2 4323-8 ####[facility] LABORATORYCLIA [id number] [address] AST With P-5'-P [Catalytic activity/Vol] 32 U/L Normal 13-35 [facility] Comment on above: Order Comment: Speci men Type: BLOOD SPECIMENOrdering Facility: [facility] Address: [address] [place] [address] Performed By: #### 2 4323-8 ####[facility]ORATORYCLIA [id number] [address] STATES OF [facility] Bilirubin [Mass/Vol] 0.3 mg/dL Normal 0.2-1.3 [facility] Comment on above: Order Comment: Speci men Type: BLOOD SPECIMENOrdering Facility: [facility] Address: [address] [place] [address] Performed By: #### 2 4323-8 ####[facility]ORATORYCLIA [id number] [address] STATES [facility] Calcium [Mass/Vol] 9.1 mg/dL Normal 8.5-10.2 [facility] Comment on above: Order Comment: Speci men Type: BLOOD SPECIMENOrdering Facility: [facility] Address: [address] [place] [address] Performed By: #### 2 4323-8 ####[facility]ORATORYCLIA [id number] [place] [address] [place] Chloride [Moles/Vol] 105 mmol/L Normal 98-107 [facility] Comment on above: Order Comment: Speci men Type: BLOOD SPECIMENOrdering Facility: [facility] Address: [address] [place] [address] Performed By: #### 2 4323-8 ####[facility]ORATORYCLIA [id number] [address] [place] CO2 [Moles/Vol] 27 mmol/L Normal 22-30 [facility] Comment on above: Order Comment: Speci men Type: BLOOD SPECIMENOrdering Facility: [facility] Address: [address] [place] [address] Performed By: #### 2 4323-8 ####[facility]ORATORYCLIA [id number] [place] [address] [place] Creatinine [Mass/Vol] 0.77 mg/dL Normal 0.58-0.96 [facility] Comment on above: Order Comment: Speci men Type: BLOOD SPECIMENOrdering Facility: [facility] Address: [address] [place] [address] Performed By: #### 2 4323-8 ####[facility]ORATORYCLIA [id number] [address] Creatinine and Glomerular filtration rate.predicted panel (S/P/Bld) 79 mL/min/1.73m??? Normal >=60 [facility] Comment on above: Order Comment: Speci men Type: BLOOD SPECIMENOrdering Facility: [facility] Address: [address] [place] [address] Result Comment: Rosana mated Glomerular Filtration Rate [...] actual GFR. Performed By: #### 2 4323-8 ####[facility] LABORATORYCLIA [id number] [place] [address] [place] Glucose [Mass/Vol] 88 mg/dL Normal 74-99 [facility] Comment on above: Order Comment: Antwan rowland Type: BLOOD SPECIMENOrdering Facility: [facility] Address: [address] [place] [address] Result Comment: The [place] Diabetes Association (ADA) provides guidance for cutoff [...] Standards of Medical Care in Diabetes 2016, [place] Diabetes Association. Diabetes Care. 2016.39(Suppl 1). Performed By: #### 2 4323-8 ####[facility] LABORATORYCLIA [id number] [place] [address] [place] Potassium [Moles/Vol] 4.0 mmol/L Normal 3.7-5.1 [facility] Comment on above: Order Comment: Antwan rowland Type: BLOOD SPECIMENOrdering Facility: [facility] Address: [address] [id number] Performed By: #### 2 4323-8 ####[facility] LABORATORYCLIA [id number] [place] [address] [place] Protein [Mass/Vol] 6.2 g/dL Low 6.3-8.0 [facility] Comment on above: Order Comment: Speci men Type: BLOOD SPECIMENOrdering Facility: [facility] Address: [address] [place] [address] Performed By: #### 2 4323-8 ####[facility] LABORATORYCLIA [id number] [address] [place] Sodium [Moles/Vol] 140 mmol/L Normal 136-144 [facility] Comment on above: Order Comment: Speci men Type: BLOOD SPECIMENOrdering Facility: [facility] Address: [address] [place] [address] Performed By: #### 2 4323-8 ####[facility]ORATORYCLIA [id number] [address] [place] Urea nitrogen [Mass/Vol] 10 mg/dL Normal 7-21 [facility] Comment on above: Order Comment: Speci men Type: BLOOD SPECIMENOrdering Facility: [facility] Address: [address] [place] [address] Performed By: #### 2 4323-8 ####[facility] LABORATORYCLIA [id number] [address] [place] CBC panel Auto (Bld)on 11-21 Erythrocyte distribution width (RBC) [Ratio] 14.4 % Normal 11.5-15.0 [facility] Comment on above: Order Comment: Speci men Type: BLOOD SPECIMENOrdering Facility: [facility] Address: [address] [place] [address] Performed By: #### 5 8410-2 ####[facility] LABORATORYCLIA [id number] [address] STATES [facility] Hematocrit (Bld) [Volume fraction] 40.8 % Normal 36.0-46.0 [facility] Comment on above: Order Comment: Speci men Type: BLOOD SPECIMENOrdering Facility: [facility] Address: [address] [place] [address] Performed By: #### 5 8410-2 ####[facility] LABORATORYCLIA [id number] [address] Hemoglobin (Bld) [Mass/Vol] 12.8 g/dL Normal 11.5-15.5 [facility] Comment on above: Order Comment: Speci men Type: BLOOD SPECIMENOrdering Facility: [facility] Address: [address] [place] [address] Performed By: #### 5 8410-2 ####[facility] LABORATORYCLIA [id number] [address] MCH (RBC) [Entitic mass] 28.7 pg Normal 26.0-34.0 [facility] Comment on above: Order Comment: Speci men Type: BLOOD SPECIMENOrdering Facility: [facility] Address: [address] [place] [address] Performed By: #### 5 8410-2 ####[facility] LABORATORYCLIA [id number] [address] [place] [facility] MCHC (RBC) [Mass/Vol] 31.4 g/dL Normal 30.5-36.0 [facility] Comment on above: Order Comment: Speci men Type: BLOOD SPECIMENOrdering Facility: [facility] Address: [address] [place] [address] Performed By: #### 5 8410-2 ####[facility] LABORATORYCLIA [id number] [address] OF [facility] MCV (RBC) [Entitic vol] 91.5 fL Normal 80.0-100.0 [facility] Comment on above: Order Comment: Speci men Type: BLOOD SPECIMENOrdering Facility: [facility] Address: [address] [place] [address] Performed By: #### 5 8410-2 ####[facility]ORATORYCLIA [id number] [address] Nucleated RBC (Bld) [#/Vol] 10*3/uL Normal <0.01 [facility] Comment on above: Order Comment: Speci men Type: BLOOD SPECIMENOrdering Facility: [facility] Address: [address] [place] [address] Performed By: #### 5 8410-2 ####[facility]ORATORYCLIA [id number] [address] STATES [facility] Platelet mean volume (Bld) [Entitic vol] 9.9 fL Normal 9.0-12.7 [facility] Comment on above: Order Comment: Speci men Type: BLOOD SPECIMENOrdering Facility: [facility] Address: [address] [place] [address] Performed By: #### 5 8410-2 ####[facility] LABORATORYCLIA [id number] [address] [place] Platelets (Bld) [#/Vol] 316 10*3/uL Normal 150-400 [facility] Comment on above: Order Comment: Speci men Type: BLOOD SPECIMENOrdering Facility: [facility] Address: [address] [place] [address] Performed By: #### 5 8410-2 ####[facility] LABORATORYCLIA [id number] [address] [place] RBC (Bld) [#/Vol] 4.46 10*6/uL Normal 3.90-5.20 [facility] Comment on above: Order Comment: Speci men Type: BLOOD SPECIMENOrdering Facility: [facility] Address: [address] [place] [address] Performed By: #### 5 8410-2 ####[facility]ORATORYCLIA [id number] [place] [address] [place] WBC (Bld) [#/Vol] 9.38 10*3/uL Normal 3.70-11.00 [facility] Comment on above: Order Comment: Speci men Type: BLOOD SPECIMENOrdering Facility: [facility] Address: [address] [place] [address] Performed By: #### 5 8410-2 ####[facility] LABORATORYCLIA [id number] [address] OF [place] Comprehensive metabolic 2000 panelon 11-22-2023 Albumin [Mass/Vol] 4.1 g/dL Normal 3.9-4.9 [facility] Comment on above: Order Comment: Speci men Type: BLOOD SPECIMENOrdering Facility: [facility] Address: [address] [place] [address] Performed By: #### 2 4323-8 ####[facility]ORATORYCLIA [id number] [address] STATES OF [facility] ALP [Catalytic activity/Vol] 80 U/L Normal 34-123 [facility] Comment on above: Order Comment: Speci men Type: BLOOD SPECIMENOrdering Facility: [facility] Address: [address] [place] [address] Performed By: #### 2 4323-8 ####[facility] LABORATORYCLIA [id number] [address] [place] ALT With P-5'-P [Catalytic activity/Vol] 19 U/L Normal 7-38 [facility] Comment on above: Order Comment: Speci men Type: BLOOD SPECIMENOrdering Facility: [facility] Address: [address] [place] [address] Performed By: #### 2 4323-8 ####[facility] LABORATORYCLIA [id number] [address] [place] Anion gap [Moles/Vol] 13 mmol/L Normal 8-15 [facility] Comment on above: Order Comment: Speci men Type: BLOOD SPECIMENOrdering Facility: [facility] Address: [address] [place] [address] Performed By: #### 2 4323-8 ####[facility]ORATORYCLIA [id number] [address] [place] AST With P-5'-P [Catalytic activity/Vol] 28 U/L Normal 13-35 [facility] Comment on above: Order Comment: Speci men Type: BLOOD SPECIMENOrdering Facility: [facility] Address: [address] [place] [address] Performed By: #### 2 4323-8 ####[facility]ORATORYCLIA [id number] [place] [address] [place] Bilirubin [Mass/Vol] 0.8 mg/dL Normal 0.2-1.3 [facility] Comment on above: Order Comment: Speci men Type: BLOOD SPECIMENOrdering Facility: [facility] Address: [address] [place] [address] Performed By: #### 2 4323-8 ####[facility] LABORATORYCLIA [id number] [place] [address] [place] Calcium [Mass/Vol] 9.8 mg/dL Normal 8.5-10.2 [facility] Comment on above: Order Comment: Speci men Type: BLOOD SPECIMENOrdering Facility: [facility] Address: [address] [place] [address] Performed By: #### 2 4323-8 ####[facility] LABORATORYCLIA [id number] [place] [address] [place] Chloride [Moles/Vol] 101 mmol/L Normal 98-107 [facility] Comment on above: Order Comment: Speci men Type: BLOOD SPECIMENOrdering Facility: [facility] Address: [address] [place] [address] Performed By: #### 2 4323-8 ####[facility] LABORATORYCLIA [id number] [place] [address] [place] CO2 [Moles/Vol] 25 mmol/L Normal 22-30 [facility] Comment on above: Order Comment: Speci men Type: BLOOD SPECIMENOrdering Facility: [facility] Address: [address] [place] [address] Performed By: #### 2 4323-8 ####[facility] LABORATORYCLIA [id number] [place] [address] [place] Creatinine [Mass/Vol] 0.68 mg/dL Normal 0.58-0.96 [facility] Comment on above: Order Comment: Speci men Type: BLOOD SPECIMENOrdering Facility: [facility] Address: [facility] [place] [address] Performed By: #### 2 4323-8 ####[facility] LABORATORYCLIA [id number] [place] [address] [place] Creatinine and Glomerular filtration rate.predicted panel (S/P/Bld) 89 mL/min/1.73m??? Normal >=60 [facility] Comment on above: Order Comment: Antwan rowland Type: BLOOD SPECIMENOrdering Facility: [facility] Address: [address] [place] [address] Result Comment: Rosana mated Glomerular Filtration Rate [...] actual GFR. Performed By: #### 2 4323-8 ####[facility] LABORATORYCLIA [id number] [place] [address] [place] Glucose [Mass/Vol] 111 mg/dL High 74-99 [facility] Comment on above: Order Comment: Antwan rowland Type: BLOOD SPECIMENOrdering Facility: [facility] Address: [address] [place] [address] Result Comment: The [place] [employer] (ADA) provides guidance for cutoff [...] Standards of Medical Care in Diabetes 2016, [place] [employer]. Diabetes Care. 2016.39(Suppl 1). Performed By: #### 2 4323-8 ####[facility] [facility] LABORATORYCLIA [id number] [place] [id number] [place] Potassium [Moles/Vol] 4.4 mmol/L Normal 3.7-5.1 [facility] Comment on above: Order Comment: Speci men Type: BLOOD SPECIMENOrdering Facility: [facility] Address: [address] [place] [address] Performed By: #### 2 4323-8 ####[facility] LABORATORYCLIA [id number] [place] [address] [place] Protein [Mass/Vol] 7.5 g/dL Normal 6.3-8.0 [facility] Comment on above: Order Comment: Speci men Type: BLOOD SPECIMENOrdering Facility: [facility] Address: [address] [place] [address] Performed By: #### 2 4323-8 ####[facility] LABORATORYCLIA [id number] [place] [address] [place] Sodium [Moles/Vol] 139 mmol/L Normal 136-144 [facility] Comment on above: Order Comment: Speci men Type: BLOOD SPECIMENOrdering Facility: [facility] Address: [address] [place] [address] Performed By: #### 2 4323-8 ####[facility] LABORATORYCLIA [id number] [place] [address] [place] Urea nitrogen [Mass/Vol] 12 mg/dL Normal 7-21 [facility] Comment on above: Order Comment: Speci men Type: BLOOD SPECIMENOrdering Facility: [facility] Address: [address] [place] [address] Performed By: #### 2 4323-8 ####[facility] LABORATORYCLIA [id number] [place] [address] [place] ANES PRE-OPon 11-21-2023 ANES PRE-OP Normal [facility] CASE MANAGEMon 11-21-2023 CASE MANAGEM Normal [facility] CASE MANAGEM Normal [facility] CBC panel Auto (Bld)on 11-20 Erythrocyte distribution width (RBC) [Ratio] 14.4 % Normal 11.5-15.0 [facility] Comment on above: Order Comment: Speci men Type: BLOOD SPECIMENOrdering Facility: [facility] Address: [address] [place] [address] Performed By: #### 5 8410-2 ####[facility] LABORATORYCLIA [id number] [address] Hematocrit (Bld) [Volume fraction] 38.8 % Normal 36.0-46.0 [facility] Comment on above: Order Comment: Speci men Type: BLOOD SPECIMENOrdering Facility: [facility] Address: [address] [place] [address] Performed By: #### 5 8410-2 ####[facility] LABORATORYCLIA [id number] [address] OF [facility] Hemoglobin (Bld) [Mass/Vol] 12.3 g/dL Normal 11.5-15.5 [facility] Comment on above: Order Comment: Speci men Type: BLOOD SPECIMENOrdering Facility: [facility] Address: [address] [place] [address] Performed By: #### 5 8410-2 ####[facility] LABORATORYCLIA [id number] [address] MCH (RBC) [Entitic mass] 28.8 pg Normal 26.0-34.0 [facility] Comment on above: Order Comment: Speci men Type: BLOOD SPECIMENOrdering Facility: [facility] Address: [address] [place] [address] Performed By: #### 5 8410-2 ####[facility] LABORATORYCLIA [id number] [address] [place] MCHC (RBC) [Mass/Vol] 31.7 g/dL Normal 30.5-36.0 [facility] Comment on above: Order Comment: Speci men Type: BLOOD SPECIMENOrdering Facility: [facility] Address: [address] [place] [address] Performed By: #### 5 8410-2 ####[facility] LABORATORYCLIA [id number] [place] [address] [place] MCV (RBC) [Entitic vol] 90.9 fL Normal 80.0-100.0 [facility] Comment on above: Order Comment: Speci men Type: BLOOD SPECIMENOrdering Facility: [facility] Address: [address] [place] [address] Performed By: #### 5 8410-2 ####[facility] LABORATORYCLIA [id number] [place] [address] [place] Nucleated RBC (Bld) [#/Vol] 10*3/uL Normal <0.01 [facility] Comment on above: Order Comment: Speci men Type: BLOOD SPECIMENOrdering Facility: [facility] Address: [address] [place] [address] Performed By: #### 5 8410-2 ####[facility] LABORATORYCLIA [id number] [address] [place] Platelet mean volume (Bld) [Entitic vol] 9.9 fL Normal 9.0-12.7 [facility] Comment on above: Order Comment: Speci men Type: BLOOD SPECIMENOrdering Facility: [facility] Address: [address] [place] [address] Performed By: #### 5 8410-2 ####[facility] LABORATORYCLIA [id number] [address] [place] Platelets (Bld) [#/Vol] 300 10*3/uL Normal 150-400 [facility] Comment on above: Order Comment: Speci men Type: BLOOD SPECIMENOrdering Facility: [facility] Address: [address] [place] [address] Performed By: #### 5 8410-2 ####[facility] LABORATORYCLIA [id number] [address] [place] RBC (Bld) [#/Vol] 4.27 10*6/uL Normal 3.90-5.20 [facility] Comment on above: Order Comment: Speci men Type: BLOOD SPECIMENOrdering Facility: [facility] Address: [address] [place] [address] Performed By: #### 5 8410-2 ####[facility] LABORATORYCLIA [id number] [address] STATES OF [facility] WBC (Bld) [#/Vol] 8.05 10*3/uL Normal 3.70-11.00 [facility] Comment on above: Order Comment: Speci men Type: BLOOD SPECIMENOrdering Facility: [facility] Address: [address] [place] [address] Performed By: #### 5 8410-2 ####[facility] LABORATORYCLIA [id number] [address] OF [place] CNCOon 11-21-2023 CNCO Letter Text Normal [facility] CONSULTon 11-21-2023 CONSULT Normal [facility] Comprehensive metabolic 2000 panelon 11-21-2023 Albumin [Mass/Vol] 4.0 g/dL Normal 3.9-4.9 [facility] Comment on above: Order Comment: Speci men Type: BLOOD SPECIMENOrdering Facility: [facility] Address: [address] [place] [address] Performed By: #### 2 4323-8 ####[facility] LABORATORYCLIA [id number] [address] ALP [Catalytic activity/Vol] 71 U/L Normal 34-123 [facility] Comment on above: Order Comment: Speci men Type: BLOOD SPECIMENOrdering Facility: [facility] Address: [address] [place] [address] Performed By: #### 2 4323-8 ####[facility] LABORATORYCLIA [id number] [address] [place] ALT With P-5'-P [Catalytic activity/Vol] 9 U/L Normal 7-38 [facility] Comment on above: Order Comment: Speci men Type: BLOOD SPECIMENOrdering Facility: [facility] Address: [address] [place] [address] Performed By: #### 2 4323-8 ####[facility] LABORATORYCLIA [id number] [address] [place] Anion gap [Moles/Vol] 14 mmol/L Normal 8-15 [facility] Comment on above: Order Comment: Speci men Type: BLOOD SPECIMENOrdering Facility: [facility] Address: [address] [place] [address] Performed By: #### 2 4323-8 ####[facility]ORATORYCLIA [id number] [place] [address] [place] AST With P-5'-P [Catalytic activity/Vol] 13 U/L Normal 13-35 [facility] Comment on above: Order Comment: Speci men Type: BLOOD SPECIMENOrdering Facility: [facility] Address: [address] [place] [address] Performed By: #### 2 4323-8 ####[facility] LABORATORYCLIA [id number] [address] [place] Bilirubin [Mass/Vol] 0.4 mg/dL Normal 0.2-1.3 [facility] Comment on above: Order Comment: Speci men Type: BLOOD SPECIMENOrdering Facility: [facility] Address: [address] [place] [address] Performed By: #### 2 4323-8 ####[facility] LABORATORYCLIA [id number] [address] [place] Calcium [Mass/Vol] 9.8 mg/dL Normal 8.5-10.2 [facility] Comment on above: Order Comment: Speci men Type: BLOOD SPECIMENOrdering Facility: [facility] Address: [address] [place] [address] Performed By: #### 2 4323-8 ####[facility] LABORATORYCLIA [id number] [place] [address] [place] Chloride [Moles/Vol] 101 mmol/L Normal 98-107 [facility] Comment on above: Order Comment: Speci men Type: BLOOD SPECIMENOrdering Facility: [facility] Address: [address] [place] [address] Performed By: #### 2 4323-8 ####[facility]ORATORYCLIA [id number] [address] STATES OF [facility] CO2 [Moles/Vol] 25 mmol/L Normal 22-30 [facility] Comment on above: Order Comment: Speci men Type: BLOOD SPECIMENOrdering Facility: [facility] Address: [address] [place] [address] Performed By: #### 2 4323-8 ####[facility] LABORATORYCLIA [id number] [address] STATES OF [facility] Creatinine [Mass/Vol] 0.74 mg/dL Normal 0.58-0.96 [facility] Comment on above: Order Comment: Speci men Type: BLOOD SPECIMENOrdering Facility: [facility] Address: [address] [place] [address] Performed By: #### 2 4323-8 ####[facility]CL[facility] [id number] [address] Creatinine and Glomerular filtration rate.predicted panel (S/P/Bld) 83 mL/min/1.73m??? Normal >=60 [facility] Comment on above: Order Comment: Speci men Type: BLOOD SPECIMENOrdering Facility: [facility] Address: [address] [place] [address] Result Comment: Rosana mated Glomerular Filtration Rate [...] actual GFR. Performed By: #### 2 4323-8 ####[facility] LABORATORYCLIA [id number] [address] Glucose [Mass/Vol] 89 mg/dL Normal 74-99 [facility] Comment on above: Order Comment: Speci men Type: BLOOD SPECIMENOrdering Facility: [facility] Address: [address] [place] [address] Result Comment: The [place] Diabetes Association (ADA) provides guidance for cutoff [...] Standards of Medical Care in Diabetes 2016, [place] Diabetes [employer]. Diabetes Care. 2016.39(Suppl 1). Performed By: #### 2 4323-8 ####[facility] LABORATORYCLIA [id number] [place] [address] [place] Potassium [Moles/Vol] 4.1 mmol/L Normal 3.7-5.1 [facility] Comment on above: Order Comment: Speci men Type: BLOOD SPECIMENOrdering Facility: [facility] Address: [address] [place] [address] Performed By: #### 2 4323-8 ####[facility] LABORATORYCLIA [id number] [place] [address] [place] Protein [Mass/Vol] 7.3 g/dL Normal 6.3-8.0 [facility] Comment on above: Order Comment: Speci men Type: BLOOD SPECIMENOrdering Facility: [facility] Address: [address] [place] [address] Performed By: #### 2 4323-8 ####[facility] LABORATORYCLIA [id number] [place] [address] [place] Sodium [Moles/Vol] 140 mmol/L Normal 136-144 [facility] Comment on above: Order Comment: Speci men Type: BLOOD SPECIMENOrdering Facility: [facility] Address: [address] [place] [address] Performed By: #### 2 4323-8 ####[facility] LABORATORYCLIA [id number] [place] [address] [place] Urea nitrogen [Mass/Vol] 15 mg/dL Normal - [facility] Comment on above: Order Comment: Speci men Type: BLOOD SPECIMENOrdering Facility: [facility] Address: [address] [place], [place] [address] Performed By: #### 2 4323-8 ####[facility] LABORATORYCLIA [id number] [place] [address] [facility] [place] ERCPon 11-21-2023 ERCP Normal [facility] NURSING PROGon 11-21-2023 NURSING PROG Normal [facility] [place] 11-21-2023 [place] Normal [facility] XR ERCP READ ONLYon 11-21-19 24 XR ERCP READ ONLY Normal [facility] BLOOD BANK COMMENTon 024 BLOOD BANK COMMENT See Comment Normal [facility] Comment on above: Order Comment: Speci men Type: BLOOD SPECIMEN [facility] Address: [address] [place] [address] Result Comment: 2nd sample NEEDED for ABO confirmation (CONABO) Performed By: #### 5 8410-2 #### [facility] CLIA [id number] [address] [place] [place] [address] [place] CASE MGT INIT ASSESon 2023 CASE MGT INIT ASSES Normal [facility] CBC panel Auto (Bld)on 11-19 Erythrocyte distribution width (RBC) [Ratio] 14.3 % Normal 11.5-15.0 [facility] Comment on above: Order Comment: Speci men Type: BLOOD SPECIMEN [facility] Address: [address] [place] [address] Performed By: #### 5 8410-2 #### [facility] CLIA [id number] [address] [place], [place] [address] [place] Hematocrit (Bld) [Volume fraction] 34.6 % Low 36.0-46.0 [facility] Comment on above: Order Comment: Speci men Type: BLOOD SPECIMEN [facility] Address: [address] [place] [address] Performed By: #### 5 8410-2 #### [facility] CLIA [id number] [address] [place] [place] [address] [place] Hemoglobin (Bld) [Mass/Vol] 10.9 g/dL Low 11.5-15.5 [facility] Comment on above: Order Comment: Speci men Type: BLOOD SPECIMEN [facility] Address: [address] [place] [address] Performed By: #### 5 8410-2 #### [facility] CLIA [id number] [address] [place] [address] [place] MCH (RBC) [Entitic mass] 28.2 pg Normal 26.0-34.0 [facility] Comment on above: Order Comment: Speci men Type: BLOOD SPECIMEN [facility] Address: [address] [place] [address] Performed By: #### 5 8410-2 #### [facility] CLIA [id number] [address] [place] [address] [place] MCHC (RBC) [Mass/Vol] 31.5 g/dL Normal 30.5-36.0 [facility] Comment on above: Order Comment: Speci men Type: BLOOD SPECIMEN [facility] Address: [address] [place] [address] Performed By: #### 5 8410-2 #### [facility] CLIA [id number] [address] [place] [place] [address] [place] MCV (RBC) [Entitic vol] 89.4 fL Normal 80.0-100.0 [facility] Comment on above: Order Comment: Speci men Type: BLOOD SPECIMEN [facility] Address: [address] [place] [address] Performed By: #### 5 8410-2 #### [facility] CLIA [id number] [address] [place] [address] [place] Nucleated RBC (Bld) [#/Vol] 10*3/uL Normal <0.01 [facility] Comment on above: Order Comment: Speci men Type: BLOOD SPECIMEN [facility] Address: [address] [place] [address] Performed By: #### 5 8410-2 #### [facility] CLIA [id number] [address] [place], [place] [address] [place] Platelet mean volume (Bld) [Entitic vol] 10.0 fL Normal 9.0-12.7 [facility] Comment on above: Order Comment: Speci men Type: BLOOD SPECIMEN [facility] Address: [address] [place] [address] Performed By: #### 5 8410-2 #### [facility] CLIA [id number] [address] [place] [place] [address] [place] Platelets (Bld) [#/Vol] 293 10*3/uL Normal 150-400 [facility] Comment on above: Order Comment: Speci men Type: BLOOD SPECIMEN [facility] Address: [address] [place] [address] Performed By: #### 5 8410-2 #### [facility] CLIA [id number] [address] [place] [address] [place] RBC (Bld) [#/Vol] 3.87 10*6/uL Low 3.90-5.20 [facility] Comment on above: Order Comment: Speci men Type: BLOOD SPECIMEN [facility] Address: [address] [place] [address] Performed By: #### 5 8410-2 #### [facility] CLIA [id number] [address] [place] [address] [place] WBC (Bld) [#/Vol] 6.41 10*3/uL Normal 3.70-11.00 [facility] Comment on above: Order Comment: Speci men Type: BLOOD SPECIMEN [facility] Address: [address] [place] [address] Performed By: #### 5 8410-2 #### [facility] CLIA [id number] [address] [place] [address] CNDSon 11-20-2023 CNDS HNO ID: [id number] Author: SHERRILL MCCONNELL MD Service: Hospital Medicine [...] surgery on board and recommended transfer to [facility]. Patient was accepted and will be transferred today for further management with hepatobiliary surgeon. Consulting Teams During Hospitalization: General surgery and gastroenterology Treatment Team: Attending Provider: Sherrill Mcconnell MD Consulting: Hector Aguilar MD Consulting: Jonathon Valverde MD Attending: MR ALE PACK Consulting: MR BEAN Patient Condition @ Discharge: Stable Discharge Disposition: [...] with primary care I have performed the pmmw-tr-oods and relevant services for a total of >30 minutes. SIGNATURE: Sherrill Mcconnell MD DATE: November 20, 2023 TIME: 9:12 AM Normal [facility] CT CHEST WO IVCONon 11-20-19 CT CHEST WO IVCON Invalid Interpretation Code [facility] Comprehensive metabolic 2000 panelon 11-20-2023 Albumin [Mass/Vol] 3.1 g/dL Low 3.2-5.0 [facility] Comment on above: Order Comment: Speci men Type: BLOOD SPECIMEN [facility] Address: [address] [place] [address] Performed By: #### 2 4323-8, , 2776-03 #### [facility] CLIA [id number] [address] [place] [address] [place] ALP [Catalytic activity/Vol] 65 U/L Normal 45-117 [facility] Comment on above: Order Comment: Speci men Type: BLOOD SPECIMEN [facility] Address: [address] [place] [address] Performed By: #### 2 4323-8, , 2776-03 #### [facility] CLIA [id number] [address] [place] [address] [place] ALT [Catalytic activity/Vol] 8 U/L Low 13-61 [facility] Comment on above: Order Comment: Speci men Type: BLOOD SPECIMEN [facility] Address: [address] [place] [address] Result Comment: Resu lts may be falsely depressed after the administration of Sulfasalazine and/or Sulfapyridine. Performed By: #### 2 4323-8, , 2776-03 #### [facility] CLIA [id number] [address] [place] [address] [place] Anion gap [Moles/Vol] 8 mmol/L Normal 5-16 [facility] Comment on above: Order Comment: Antwan rowland Type: BLOOD SPECIMEN [facility] Address: [address] [place] [address] Performed By: #### 2 4323-8, , 2776-03 #### [facility] CLIA [id number] [address] [place], [place] [address] [place] AST [Catalytic activity/Vol] 12 U/L Normal 8-34 [facility] Comment on above: Order Comment: Antwan rowland Type: BLOOD SPECIMEN [facility] Address: [address] [place] [address] Result Comment: Resu lts may be falsely depressed after the administration of Sulfasalazine and/or Sulfapyridine. Performed By: #### 2 4323-8, , 2776-03 #### [facility] CLIA [id number] [address] [place] [address] [place] Bilirubin [Mass/Vol] 0.7 mg/dL Normal 0.2-1.0 [facility] Comment on above: Order Comment: Antwan rowland Type: BLOOD SPECIMEN [facility] Address: [address] [place] [address] Performed By: #### 2 4323-8, , 2776-03 #### [facility] CLIA [id number] [address] [place] [address] [place] Calcium [Mass/Vol] 9.6 mg/dL Normal 8.5-10.5 [facility] Comment on above: Order Comment: Antwan rowland Type: BLOOD SPECIMEN [facility] Address: [address] [place] [address] Performed By: #### 2 4323-8, 64535-8, 2776-03 #### [facility] CLIA [id number] [address] [place], [place] [address] [place] Chloride [Moles/Vol] 104 mmol/L Normal 98-107 [facility] Comment on above: Order Comment: Speci men Type: BLOOD SPECIMEN [facility] Address: [address] [place], [place] [address] Performed By: #### 2 4323-8, , 2776-03 #### [facility] CLIA [id number] [address] [place], [place] [address] [place] CO2 [Moles/Vol] 29 mmol/L Normal 21-32 [facility] Comment on above: Order Comment: Speci men Type: BLOOD SPECIMEN [facility] Address: [address] [place], [place] [address] Performed By: #### 2 4323-8, , 2776-03 #### [facility] CLIA [id number] [address] [place], [place] [address] [place] Creatinine [Mass/Vol] 0.85 mg/dL Normal 0.51-0.95 [facility] Comment on above: Order Comment: Speci men Type: BLOOD SPECIMEN [facility] Address: [address] [place], [place] [address] Result Comment: Monie ents receiving either N-Acetylcysteine (NAC) or Metamizole prior to venipuncture, may have falsely depressed results. Performed By: #### 2 4323-8, 53687-6, 2776-03 #### [facility] CLIA [id number] [address] [place], [place] [address] [place] Creatinine and Glomerular filtration rate.predicted panel (S/P/Bld) 70 mL/min/1.73m??? Normal >=60 [facility] Comment on above: Order Comment: Speci men Type: BLOOD SPECIMEN [facility] Address: [address] [place], [place] [address] Result Comment: Rosana mated Glomerular Filtration Rate [...] actual GFR. Performed By: #### 2 4323-8, 83359-1, 2776-03 #### [facility] CLIA [id number] [address] [place] [address] [place] Glucose [Mass/Vol] 86 mg/dL Normal 70-100 [facility] Comment on above: Order Comment: Antwan rowland Type: BLOOD SPECIMEN [facility] Address: [address] [place] [address] Result Comment: The [place] Diabetes Association (ADA) provides guidance for cutoff [...] Standards of Medical Care in Diabetes 2016, [place] Diabetes [employer]. Diabetes Care. 2016.39(Suppl 1). Results may be falsely elevated after the administration of Sulfapyridine. Results may be falsely depressed after the administration of Sulfasalazine. Performed By: #### 2 4323-8, 26094-4, 2776-03 #### [facility] CLIA [id number] [address] [place], [place] [address] [place] Potassium [Moles/Vol] 4.1 mmol/L Normal 3.5-5.1 [facility] Comment on above: Order Comment: Antwan rowland Type: BLOOD SPECIMEN [facility] Address: [address] [place], [place] [address] Performed By: #### 2 4323-8, 49639-3, 2776- #### [facility] CLIA [id number] [address] [place], [place] [address] [place] Protein [Mass/Vol] 6.6 g/dL Normal 6.0-8.5 [facility] Comment on above: Order Comment: Speci men Type: BLOOD SPECIMEN [facility] Address: [address] [place], [place] [address] Performed By: #### 2 4323-8, 58744-6, 2776- #### [facility] CLIA [id number] [address] [place], [place] [address] [place] Sodium [Moles/Vol] 141 mmol/L Normal 136-145 [facility] Comment on above: Order Comment: Speci men Type: BLOOD SPECIMEN [facility] Address: [address] [place], [place] [address] Performed By: #### 2 4323-8, , 2776-03 #### [facility] CLIA [id number] [address] [place], [place] [address] [place] Urea nitrogen [Mass/Vol] 14 mg/dL Normal 7-26 [facility] Comment on above: Order Comment: Speci men Type: BLOOD SPECIMEN Ordering Facility: [facility] Address: [address] [place] [address] Performed By: #### 2 4323-8, , 2776- #### [facility] CLIA [id number] [address] [place], [place] [address] [place] ECG COMPLETEon 11-20-2023 ECG COMPLETE Normal [facility] HISTORY PHYSICALon HISTORY PHYSICAL Normal [facility] Hepatic function 2000 panelo n 11-20-2023 Albumin [Mass/Vol] 3.8 g/dL Low 3.9-4.9 [facility] Comment on above: Order Comment: Speci men Type: BLOOD SPECIMENOrdering Facility: [facility] Address: [address] [place] [address] Performed By: #### 2 4325-3 ####[facility] LABORATORYCLIA [id number] [address] ALP [Catalytic activity/Vol] 68 U/L Normal 34-123 [facility] Comment on above: Order Comment: Speci men Type: BLOOD SPECIMENOrdering Facility: [facility] Address: [address] [place] [address] Performed By: #### 2 4325-3 ####[facility]ORY[facility] [id number] [address] [place] ALT With P-5'-P [Catalytic activity/Vol] 8 U/L Normal 7-38 [facility] Comment on above: Order Comment: Speci men Type: BLOOD SPECIMENOrdering Facility: [facility] Address: [address] [place] [address] Performed By: #### 2 4325-3 ####[facility] LABORATORYCLIA [id number] [address] AST With P-5'-P [Catalytic activity/Vol] 12 U/L Low 13-35 [facility] Comment on above: Order Comment: Speci men Type: BLOOD SPECIMENOrdering Facility: [facility] Address: [address] [place] [address] Performed By: #### 2 4325-3 ####[facility] LABORATORYCLIA [id number] [address] OF [place] Bilirubin [Mass/Vol] 0.6 mg/dL Normal 0.2-1.3 [facility] Comment on above: Order Comment: Speci men Type: BLOOD SPECIMENOrdering Facility: [facility] Address: [address] [place] [address] Performed By: #### 2 4325-3 ####[facility]ORYCLIA [id number] [address] Bilirubin.conjugated [Mass/Vol] mg/dL Normal <0.2 [facility] Comment on above: Order Comment: Speci men Type: BLOOD SPECIMENOrdering Facility: [facility] Address: [address] [place] [address] Performed By: #### 2 4325-3 ####[facility] LABORATORYCLIA [id number] [place] [address] [place] Protein [Mass/Vol] 7.0 g/dL Normal 6.3-8.0 [facility] Comment on above: Order Comment: Speci men Type: BLOOD SPECIMENOrdering Facility: [facility] Address: [address] [place] [address] Performed By: #### 2 4325-3 ####[facility] LABORATORYCLIA [id number] [place] [id number] [place] Magnesium SerPl-mCncon 11-19 Magnesium [Mass/Vol] 2.0 mg/dL Normal 1.6-2.6 [facility] Comment on above: Order Comment: Speci men Type: BLOOD SPECIMEN Ordering Facility: [facility] Address: [address] [place] [address] Performed By: #### 2 4323-8, 95119-6, 2777-1 #### [facility] CLIA [id number] [address] [place] [address] [place] Phosphate SerPl-mCncon 11-19 Phosphate [Mass/Vol] 4.2 mg/dL Normal 2.5-4.9 [facility] Comment on above: Order Comment: Speci men Type: BLOOD SPECIMEN Ordering Facility: [facility] Address: [address] [place] [address] Result Comment: Elev ated m-protein (paraprotein) levels in the serum may be exhibited in patients with monoclonal gammopathies, causing falsely elevated inorganic phosphorus results. Performed By: #### 2 4323-8, 25738-6, 2777-1 #### [facility] CLIA [id number] [address] [place] [address] [place] TYPE + SCREENon 11-20-2023 ABO A Normal [facility] Comment on above: Order Comment: Speci men Type: BLOOD SPECIMEN Ordering Facility: [facility] Address: [address] [place] [address] Performed By: #### 5 8410-2 #### [facility] CLIA [id number] [address] [place] [address] HISTORICAL AB SCR STATUS Negative Normal [facility] Comment on above: Order Comment: Speci men Type: BLOOD SPECIMEN Ordering Facility: [facility] Address: [address] [place] [address] Performed By: #### 5 8410-2 #### [facility] CLIA [id number] [address] [place] [address] OF [place] Rh Nom (Bld) Positive Normal [facility] Comment on above: Order Comment: Speci men Type: BLOOD SPECIMEN Ordering Facility: [facility] Address: [address] [place] [address] Performed By: #### 5 8410-2 #### [facility] CLIA [id number] [address] [place] [address] [facility] TYPE AND SCREEN EXPIRATION 11/23/2023 23:59 Normal [facility] Comment on above: Order Comment: Speci men Type: BLOOD SPECIMEN Ordering Facility: [facility] Address: [address] [place] [address] Performed By: #### 5 8410-2 #### [facility] CLIA [id number] [address] [place] [address] OF [place] AFP SerPl-mCncon 11-19-2023 AFP [Mass/Vol] ng/mL Normal <11.0 [facility] Comment on above: Order Comment: Speci men Type: BLOOD SPECIMEN Ordering Facility: [facility] Address: [address] [place] [address] Result Comment: Resu lt rechecked. The Alpha-Fetoprotein test was performed using the Siemens Centaur XP chemiluminometric immunoassay method. Results obtained with different assay methods or kits cannot be used interchangeably. 3.27 The Alpha-Fetoprotein test was performed using the Jason Scandidel DxI immunoenzymatic assay. Results obtained with different assay methods or kits cannot be used interchangeably. Performed By: #### 2 4323-8, 22343-1, 2777-1 #### [facility] CLIA [id number] [address] [place] [address] OF [place] CBC panel Auto (Bld)on 11-18 Erythrocyte distribution width (RBC) [Ratio] 14.4 % Normal 11.5-15.0 [facility] Comment on above: Order Comment: Speci men Type: BLOOD SPECIMEN Ordering Facility: [facility] Address: [address] [place] [address] Performed By: #### 5 8410-2 #### [facility] CLIA [id number] [address] [place] [address] OF [place] Hematocrit (Bld) [Volume fraction] 36.4 % Normal 36.0-46.0 [facility] Comment on above: Order Comment: Speci men Type: BLOOD SPECIMEN Ordering Facility: [facility] Address: [address] [place] [address] Performed By: #### 5 8410-2 #### [facility] CLIA [id number] [address] [place] [address] Hemoglobin (Bld) [Mass/Vol] 11.6 g/dL Normal 11.5-15.5 [facility] Comment on above: Order Comment: Speci men Type: BLOOD SPECIMEN Ordering Facility: [facility] Address: [address] [place] [address] Performed By: #### 5 8410-2 #### [facility] CLIA [id number] [address] [place] [address] [place] MCH (RBC) [Entitic mass] 28.6 pg Normal 26.0-34.0 [facility] Comment on above: Order Comment: Speci men Type: BLOOD SPECIMEN Ordering Facility: [facility] Address: [address] [place] [address] Performed By: #### 5 8410-2 #### [facility] CLIA [id number] [address] [place] [address] [place] MCHC (RBC) [Mass/Vol] 31.9 g/dL Normal 30.5-36.0 [facility] Comment on above: Order Comment: Speci men Type: BLOOD SPECIMEN Ordering Facility: [facility] Address: [address] [place] [address] Performed By: #### 5 8410-2 #### [facility] CLIA [id number] [address] [place] [address] [place] MCV (RBC) [Entitic vol] 89.9 fL Normal 80.0-100.0 [facility] Comment on above: Order Comment: Speci men Type: BLOOD SPECIMEN Ordering Facility: [facility] Address: [address] [place] [address] Performed By: #### 5 8410-2 #### [facility] CLIA [id number] [address] [place] [address] [place] Nucleated RBC (Bld) [#/Vol] 10*3/uL Normal <0.01 [facility] Comment on above: Order Comment: Speci men Type: BLOOD SPECIMEN Ordering Facility: [facility] Address: [address] [place] [address] Performed By: #### 5 8410-2 #### [facility] CLIA [id number] [address] [place] [address] [place] Platelet mean volume (Bld) [Entitic vol] 9.5 fL Normal 9.0-12.7 [facility] Comment on above: Order Comment: Speci men Type: BLOOD SPECIMEN Ordering Facility: [facility] Address: [address] [place] [address] Performed By: #### 5 8410-2 #### [facility] CLIA [id number] [address] [place] [address] [place] Platelets (Bld) [#/Vol] 284 10*3/uL Normal 150-400 [facility] Comment on above: Order Comment: Speci men Type: BLOOD SPECIMEN Ordering Facility: [facility] Address: [address] [place] [address] Performed By: #### 5 8410-2 #### [facility] CLIA [id number] [address] [place] [address] [place] RBC (Bld) [#/Vol] 4.05 10*6/uL Normal 3.90-5.20 [facility] Comment on above: Order Comment: Speci men Type: BLOOD SPECIMEN Ordering Facility: [facility] Address: [address] [place] [address] Performed By: #### 5 8410-2 #### [facility] CLIA [id number] [address] [place] [address] [facility] WBC (Bld) [#/Vol] 7.62 10*3/uL Normal 3.70-11.00 [facility] Comment on above: Order Comment: Speci men Type: BLOOD SPECIMEN Ordering Facility: [facility] Address: [address] [place] [address] Performed By: #### 5 8410-2 #### [facility] CLIA [id number] [address] [place] [address] CEA SerPl-mCncon 11-19-2023 Carcinoembryonic Ag [Mass/Vol] 1.8 ng/mL Normal <=2.5 [facility] Comment on above: Order Comment: Speci men Type: BLOOD SPECIMEN Ordering Facility: [facility] Address: [address] [place] [address] Result Comment: This is a new methodology for this marker. Tumor markers obtained from different assay methods cannot be used interchangeably. Expect results of this assay to run lower than the previous assay. It is recommended to re-baseline patients when changing to a new methodology. Performed By: #### 5 8410-2 #### [facility] CLIA [id number] [address] [place] [address] CONSULTon 11-19-2023 CONSULT HNO ID: [id number] Author: ASHLEY UNGER MD Service: General Surgery [...] TIA who presents as a transfer from [facility] with concern for choledocholithiasis and cholecystitis. Patient [...] concern for choledocholithiasis. Patient was transferred to [facility] as [facility] does not have ERCP capabilities. MRCP was [...] ?C (97.7 ?F), (more content not included)... Normal [facility] CONSULT HNO ID: [id number] Author: ALEX LEARY MD Service: Gastroenterology Author [...] SERVICE DATE: November 19, 2023 SERVICE TIME: 929 CONSULTING SERVICE: Gastroenterology REASON FOR CONSULT: choledocholithiasis HPI: Patient is a 78 yo F whom gastroenterology was consulted for choledocholithiasis. PMHx includes: CVA, HPL, HTN, and appendectomy. Patient presents to [facility] ED (11/17) from [facility] with 3 week history of intermittent RUQ [...] office yesterday, who then sent her to [facility] ED for further evaluation. Patient denies any tobacco use, alcohol use, or illicit drug use. She reports taking baby ASA daily, but no other anticoagulation. Patient denies any allergies to contrast dye. At [facility] ED, RUQ US done showing dilated common bile duct measuring 9mm with common bile duct stones, gallbladder wall thickened and measures 7.3 mm with multiple gallstones. On admission to [facility], patient presents with no leukocytosis or anemia. No electrolyte derangements. LFTs normal. Lipase normal 24. GI history: Patient reports that she has never had any endoscopic procedures. RUQ US 11/18/2023 [facility] Fatty infiltration of the liver Multiple gallstones [...] NaCl 0 (more content not included)... Normal [facility] Cancer Ag125 SerPl-aCncon Cancer Ag 125 Qn 18 [arb'U]/mL Normal 0-35 [facility] Comment on above: Order Comment: Speci men Type: BLOOD SPECIMEN Ordering Facility: [facility] Address: [address] [place] [address] Result Comment: This is a new methodology for this marker. Tumor markers obtained from different assay methods cannot be used interchangeably. Expect results of this assay to run lower than the previous assay. It is recommended to re-baseline patients when changing to a new methodology. Performed By: #### 5 8410-2 #### [facility] CLIA [id number] [address] [place] [address] [place] Cancer Ag19-9 SerPl-aCncon 0 11-19-2023 Cancer Ag 19-9 Qn 10.0 [arb'U]/mL Normal <36.0 [facility] Comment on above: Order Comment: Antwan rowland Type: BLOOD SPECIMEN Ordering Facility: [facility] Address: [address] [place] [address] Result Comment: [facility] er antigen 19-9 test is used as an aid in monitoring response to treatment or recurrence in patients with established pancreatic, hepatobiliary, or gastrointestinal malignancies. Clinical correlation is required. The CA 19-9 Antigen test was performed using the Jason 1000jobboersen.de Unicel DXI paramagnetic particle chemiluminescent immunoassay method. Results obtained with different assay methods or kits cannot be used interchangeably. Performed By: #### 2 4323-8, 43739-3, 2776- #### [facility] CLIA [id number] [address] [place], [place] [address] [facility] OF [place] Comprehensive metabolic 2000 panelon 11-19-2023 Albumin [Mass/Vol] 3.2 g/dL Normal 3.2-5.0 [facility] Comment on above: Order Comment: Antwan rowland Type: BLOOD SPECIMEN Ordering Facility: [facility] Address: [address] [place] [address] Performed By: #### 2 4323-8, 73036-7, 2776-03 #### [facility] CLIA [id number] [address] [place], [place] [address] [place] ALP [Catalytic activity/Vol] 71 U/L Normal 45-117 [facility] Comment on above: Order Comment: Antwan rowland Type: BLOOD SPECIMEN Ordering Facility: [facility] Address: [address] [place] [address] Performed By: #### 2 4323-8, 66362-0, 2776-03 #### [facility] CLIA [id number] [address] [place], [place] [address] [place] ALT [Catalytic activity/Vol] 8 U/L Low 13-61 [facility] Comment on above: Order Comment: Antwan rowland Type: BLOOD SPECIMEN Ordering Facility: [facility] Address: [address] [place] [address] Result Comment: Resu lts may be falsely depressed after the administration of Sulfasalazine and/or Sulfapyridine. Performed By: #### 2 4323-8, , 2776-03 #### [facility] CLIA [id number] [address] [place] [address] [place] Anion gap [Moles/Vol] 5 mmol/L Normal 5-16 [facility] Comment on above: Order Comment: Speci men Type: BLOOD SPECIMEN Ordering Facility: [facility] Address: [address] [place] [address] Performed By: #### 2 4323-8, , 2776-03 #### [facility] CLIA [id number] [address] [place], [place] [address] [place] AST [Catalytic activity/Vol] 12 U/L Normal 8-34 [facility] Comment on above: Order Comment: Speci men Type: BLOOD SPECIMEN Ordering Facility: [facility] Address: [address] [place] [address] Result Comment: Resu lts may be falsely depressed after the administration of Sulfasalazine and/or Sulfapyridine. Performed By: #### 2 4323-8, , 2776-03 #### [facility] CLIA [id number] [address] [place], [place] [address] [place] Bilirubin [Mass/Vol] 0.8 mg/dL Normal 0.2-1.0 [facility] Comment on above: Order Comment: Speci men Type: BLOOD SPECIMEN Ordering Facility: [facility] Address: [address] [place] [address] Performed By: #### 2 4323-8, , 2776-03 #### [facility] CLIA [id number] [address] [place] [address] [place] Calcium [Mass/Vol] 9.9 mg/dL Normal 8.5-10.5 [facility] Comment on above: Order Comment: Speci men Type: BLOOD SPECIMEN Ordering Facility: [facility] Address: [address] [place] [address] Performed By: #### 2 4323-8, , 2776-03 #### [facility] CLIA [id number] [address] [place], [place] [address] [place] Chloride [Moles/Vol] 106 mmol/L Normal 98-107 [facility] Comment on above: Order Comment: Speci men Type: BLOOD SPECIMEN Ordering Facility: [facility] Address: [address] [place] [address] Performed By: #### 2 4323-8, 15370-6, 2776- #### [facility] CLIA [id number] [address] [place] [address] [place] CO2 [Moles/Vol] 29 mmol/L Normal 21-32 [facility] Comment on above: Order Comment: Speci men Type: BLOOD SPECIMEN Ordering Facility: [facility] Address: [address] [place] [address] Performed By: #### 2 4323-8, 76414-1, 2776- #### [facility] CLIA [id number] [address] [place] [address] [place] Creatinine [Mass/Vol] 0.80 mg/dL Normal 0.51-0.95 [facility] Comment on above: Order Comment: Speci men Type: BLOOD SPECIMEN Ordering Facility: [facility] Address: [address] [place] [address] Result Comment: Monie ents receiving either N-Acetylcysteine (NAC) or Metamizole prior to venipuncture, may have falsely depressed results. Performed By: #### 2 4323-8, 56768-2, 2776-03 #### [facility] CLIA [id number] [address] [place] [address] [place] Creatinine and Glomerular filtration rate.predicted panel (S/P/Bld) 76 mL/min/1.73m??? Normal >=60 [facility] Comment on above: Order Comment: Speci men Type: BLOOD SPECIMEN Ordering Facility: [facility] Address: [address] [place] [address] Result Comment: Rosana mated Glomerular Filtration Rate [...] By: #### 2 4323-8, , 2776-03 #### [facility] CLIA [id number] [address] [place], [place] [address] [place] Glucose [Mass/Vol] 93 mg/dL Normal 70-100 [facility] Comment on above: Order Comment: Antwan rowland Type: BLOOD SPECIMEN Ordering Facility: [facility] Address: [address] [place], [place] [address] Result Comment: The [place] Diabetes Association (ADA) provides guidance for cutoff [...] Standards of Medical Care in Diabetes 2016, [place] Diabetes Association. Diabetes Care. 2016.39(Suppl 1). Results may be falsely elevated after the administration of Sulfapyridine. Results may be falsely depressed after the administration of Sulfasalazine. Performed By: #### 2 4323-8, , 2776-03 #### [facility] CLIA [id number] [address] [place], [place] [address] [place] Potassium [Moles/Vol] 4.2 mmol/L Normal 3.5-5.1 [facility] Comment on above: Order Comment: Antwan rowland Type: BLOOD SPECIMEN Ordering Facility: [facility] Address: [address] [place] [address] Performed By: #### 2 4323-8, , 2776-03 #### [facility] CLIA [id number] [address] [place], [place] [address] [place] Protein [Mass/Vol] 6.8 g/dL Normal 6.0-8.5 [facility] Comment on above: Order Comment: Speci men Type: BLOOD SPECIMEN Ordering Facility: [facility] Address: [address] [place] [address] Performed By: #### 2 4323-8, 22074-8, 2777-1 #### [facility] CLIA [id number] [address] [place], [place] [address] [place] Sodium [Moles/Vol] 140 mmol/L Normal 136-145 [facility] Comment on above: Order Comment: Speci men Type: BLOOD SPECIMEN Ordering Facility: [facility] Address: [address] [place] [address] Performed By: #### 2 4323-8, 66593-8, 2777-1 #### [facility] CLIA [id number] [address] [place], [place] [address] [place] Urea nitrogen [Mass/Vol] 15 mg/dL Normal 7-26 [facility] Comment on above: Order Comment: Speci men Type: BLOOD SPECIMEN Ordering Facility: [facility] Address: [address] [place] [address] Performed By: #### 2 4323-8, 38916-5, 2777-1 #### [facility] CLIA [id number] [address] [place], [place] [address] [place] MRI 3D POST PROCESSINGon MRI 3D POST PROCESSING * * *Final Report* * * DATE OF EXAM: Nov 19 2023 2:27PM [facility] 0280 - MRI 3D POST PROCESSING [...] 3. Choledocholithiasis with upstream biliary ductal dilation. It Senior Analyst: TONY Transcribe Date/Time: Nov 19 2023 3:21P Dictated by : ABENA POTTER MD This examination was interpreted and the report reviewed and electronically signed by: ABENA POTTER MD on Nov 19 2023 3:42PM EST [id number] [facility] MRI PANC/DAVID WO/W IVCONon MRI PANC/DAVID WO/W IVCON * * *Final Report* * * DATE OF EXAM: Nov 19 2023 2:27PM [facility] 0730 - MRI PANC/DAVID WO/W IVCON [...] 3. Choledocholithiasis with upstream biliary ductal dilation. It Senior Analyst: TONY Transcribe Date/Time: Nov 19 2023 3:21P Dictated by : ABENA POTTER MD This examination was interpreted and the report reviewed and electronically signed by: ABENA POTTER MD on Nov 19 2023 3:42PM EST [id number] [facility] Magnesium SerPl-mCncon 11-18 Magnesium [Mass/Vol] 2.1 mg/dL Normal 1.6-2.6 [facility] Comment on above: Order Comment: Antwan rowland Type: BLOOD SPECIMEN Ordering Facility: [facility] Address: [address] [place] [address] Performed By: #### 2 4323-8, 54828-5, 2777-1 #### [facility] CLIA [id number] [address] [place] NURSING PROGon 11-19-2023 NURSING PROG HNO ID: [id number] Author: SRINI MAYORGA RN Service: Nursing Author Type: Registered Nurse Type: Nursing Progress Note Filed: 11/19/2023 19:09 Note Text: Dr. Leary was called at this time and informed [facility] D/C the ERCP. New ordered provided. Normal [facility] PT panel Coag (PPP)on 2023 INR Coag (PPP) [Relative time] 1.0 {INR} Normal 0.9-1.3 [facility] Comment on above: Order Comment: Antwan rowland Type: BLOOD SPECIMEN Ordering Facility: [facility] Address: [address] [place] [address] Result Comment: Avis min K Antagonist (VKA) Therapeutic Range: INR 2 to 3 (Target INR of 2.5) Note: For patients treated with VKA drugs, such as warfarin, the [place] [employer] 2012 Guideline recommends [...] Chest 2012, 141:7S-47S Matteo RA, et al. [facility] 2017, 70: 252-289 Performed By: #### 5 8410-2 #### [facility] CLIA [id number] [address] [place], [place] [address] [place] PT Coag (PPP) [Time] 10.9 s Normal 9.7-13.0 [facility] Comment on above: Order Comment: Speci men Type: BLOOD SPECIMEN Ordering Facility: [facility] Address: [address] [place] [address] Performed By: #### 5 8410-2 #### [facility] CLIA [id number] [address] [place], [place] [address] [place] Phosphate SerPl-mCncon 11-18 Phosphate [Mass/Vol] 4.3 mg/dL Normal 2.5-4.9 [facility] Comment on above: Order Comment: Speci men Type: BLOOD SPECIMEN Ordering Facility: [facility] Address: [address] [place] [address] Result Comment: Elev ated m-protein (paraprotein) levels in the serum may be exhibited in patients with monoclonal gammopathies, causing falsely elevated inorganic phosphorus results. Performed By: #### 2 4323-8, 41160-3, 2777-1 #### [facility] CLIA [id number] [address] [place], [place] [id number] [place] CBC W/Diff, Automatedon 08- 0 Absolute Lymph 1.98 X10 3/uL Normal 0.83-4.51 [facility] Comment on above: Performed By: #### L 500.4050, L100.0100, L501.2450 #### [facility] [address] [place], [place], [address] Absolute Neut 4.6 X10 3/uL Normal 2.0-7.7 [facility] Comment on above: Performed By: #### L 500.4050, L100.0100, L501.2450 #### [facility] [address] [place], [address] Basophils/100 WBC (Bld) 0.5 % Normal 0-1 [facility] Comment on above: Performed By: #### L 500.4050, L100.0100, L501.2450 #### [facility] [address] [place], [address] Eosinophils/100 WBC (Bld) 2.0 % Normal 0-5 [facility] Comment on above: Performed By: #### L 500.4050, L100.0100, L501.2450 #### [facility] [address] [place], [address] Erythrocyte distribution width (RBC) [Ratio] 14.4 % Normal 11.6-14.6 [facility] Comment on above: Performed By: #### L 500.4050, L100.0100, L501.2450 #### [facility] [address] [place], [address] Hematocrit (Bld) [Volume fraction] 37.3 % Normal 37-47 [facility] Comment on above: Performed By: #### L 500.4050, L100.0100, L501.2450 #### [facility] [address] [place], [address] Hemoglobin (Bld) [Mass/Vol] 11.7 g/dL Low 12.0-15.0 [facility] Comment on above: Performed By: #### L 500.4050, L100.0100, L501.2450 #### [facility] [address] [place], [address] IG% 0.300 Normal 0.0-0.9 [facility] Comment on above: Result Comment: IG% - Immature Granulocytes (promyelocytes, myelocytes and metamyelocytes) > 1% indicates that a LEFT SHIFT is Present. Performed By: #### L 500.4050, L100.0100, L501.2450 #### [facility] [address] [place], [address] Lymphocytes/100 WBC (Bld) 26.5 % Normal 19-41 [facility] Comment on above: Performed By: #### L 500.4050, L100.0100, L501.2450 #### [facility] [address] [place], [address] MCH (RBC) [Entitic mass] 28.3 pg Normal 27.0-32.0 [facility] Comment on above: Performed By: #### L 500.4050, L100.0100, L501.2450 #### [facility] [address] [place], [address] MCHC (RBC) [Mass/Vol] 31.4 g/dL Low 32-36 [facility] Comment on above: Performed By: #### L 500.4050, L100.0100, L501.2450 #### [facility] [address] [place], [address] MCV (RBC) [Entitic vol] 90.3 fL Normal 81-99 [facility] Comment on above: Performed By: #### L 500.4050, L100.0100, L501.2450 #### [facility] [address] [place], [address] Monocytes/100 WBC (Bld) 9.4 % Normal 0-10 [facility] Comment on above: Performed By: #### L 500.4050, L100.0100, L501.2450 #### [facility] [address] [place], [address] Neutrophils/100 WBC (Bld) 61.3 % Normal 47-70 [facility] Comment on above: Performed By: #### L 500.4050, L100.0100, L501.2450 #### [facility] [address] [place], [address] Nucleated RBC (Bld) [#/Vol] 0 10*3/uL Normal 0-5 [facility] Comment on above: Performed By: #### L 500.4050, L100.0100, L501.2450 #### [facility] [address] [place], [address] Platelet mean volume (Bld) [Entitic vol] 9.5 fL Normal 6.2-12.0 [facility] Comment on above: Performed By: #### L 500.4050, L100.0100, L501.2450 #### [facility] [address] [place], [address] Platelets (Bld) [#/Vol] 333 10*3/uL Normal 150-450 [facility] Comment on above: Performed By: #### L 500.4050, L100.0100, L501.2450 #### [facility] [address] [place], [address] RBC (Bld) [#/Vol] 4.13 10*6/uL Low 4.2-5.4 [facility] Comment on above: Performed By: #### L 500.4050, L100.0100, L501.2450 #### [facility] [address] [place], [address] RDW SD 47.6 fl High 35.1-43.9 [facility] Comment on above: Performed By: #### L 500.4050, L100.0100, L501.2450 #### [facility] [address] [place], [address] WBC (Bld) [#/Vol] 7.5 10*3/uL Normal 4.4-11.[address] [facility] Comment on above: Performed By: #### L 500.4050, L100.0100, L501.2450 #### [facility] [address] [place], [address] Comprehensive Metabolic [facility] mary kate 11-18-2023 Albumin [Mass/Vol] 3.2 g/dL Normal 3.2-5.[address] [facility] Comment on above: Performed By: #### L 500.4050, L100.0100, L501.2450 #### [facility] [address] [place], [address] Albumin/Globulin [Mass ratio] 0.8 {ratio} Low 0.9-2.4 [facility] Comment on above: Performed By: #### L 500.4050, L100.0100, L501.2450 #### [facility] [address] [place], [address] ALK P 72 U/L Normal 45-117 [facility] Comment on above: Performed By: #### L 500.4050, L100.0100, L501.2450 #### [facility] [address] [place], [address] ALT [Catalytic activity/Vol] 16 U/L Normal 13-56 [facility] Comment on above: Performed By: #### L 500.4050, L100.0100, L501.2450 #### [facility] [address] [place], [address] AST [Catalytic activity/Vol] 10 U/L Low 15-37 [facility] Comment on above: Performed By: #### L 500.4050, L100.0100, L501.2450 #### [facility] [address] [place], [address] Bilirubin [Mass/Vol] 0.60 mg/dL Normal 0.20-1.00 [facility] Comment on above: Result Comment: For patients on eltrombopag therapy, use of Dimension Termo TBIL is not recommended. Performed By: #### L 500.4050, L100.0100, L501.2450 #### [facility] [address] [place], [address] BUN/CRE 18.5 RATIO Normal 10-20 [facility] Comment on above: Performed By: #### L 500.4050, L100.0100, L501.2450 #### [facility] [address] [place], [address] CA,Total 10.3 mg/dL High 8.5-10.1 [facility] Comment on above: Performed By: #### L 500.4050, L100.0100, L501.2450 #### [facility] [address] [place], [address] Chloride [Moles/Vol] 108 mmol/L High 98-107 [facility] Comment on above: Performed By: #### L 500.4050, L100.0100, L501.2450 #### [facility] [address] [place], [address] CO2 [Moles/Vol] 28.0 mmol/L Normal 21.0-32.0 [facility] Comment on above: Performed By: #### L 500.4050, L100.0100, L501.2450 #### [facility] [address] [place], [address] Creatinine [Mass/Vol] 0.81 mg/dL Normal 0.55-1.02 [facility] Comment on above: Result Comment: The validity of the calculated GFR GFRAA in patients over 70 years has not been determined. Clinical correlation is essential. Performed By: #### L 500.4050, L100.0100, L501.2450 #### [facility] [address] [place], [address] ECRCL 57.74 ml/min Normal [facility] Comment on above: Performed By: #### L 500.4050, L100.0100, L501.2450 #### [facility] [address] [place], [address] EST GFR - AA 88 mL/min Normal >60 [facility] Comment on above: Result Comment: Afri can Danish GFR Calc Performed By: #### L 500.4050, L100.0100, L501.2450 #### [facility] [address] [place], [address] GAP 4 Low 5-15 [facility] Comment on above: Performed By: #### L 500.4050, L100.0100, L501.2450 #### [facility] [address] [place], [address] GFR/1.73 sq M.predicted among non-blacks MDRD (S/P/Bld) [Vol rate/Area] 73 mL/min/{1.73_m2} Normal >60 [facility] Comment on above: Result Comment: Non- GFR Calc Performed By: #### L 500.4050, L100.0100, L501.2450 #### [facility] [address] [place], [address] Globulin (S) [Mass/Vol] 4.2 g/dL Normal 2.2-4.2 [facility] Comment on above: Performed By: #### L 500.4050, L100.0100, L501.2450 #### [facility] [address] [place], [address] Glucose [Mass/Vol] 99 mg/dL Normal 74-[address] [facility] Comment on above: Performed By: #### L 500.4050, L100.0100, L501.2450 #### [facility] [address] [place], [address] Potassium [Moles/Vol] 4.5 mmol/L Normal 3.5-5.1 [facility] Comment on above: Performed By: #### L 500.4050, L100.0100, L501.2450 #### [facility] [address] [place], [address] Sodium [Moles/Vol] 140 mmol/L Normal 136-[address] [facility] Comment on above: Performed By: #### L 500.4050, L100.0100, L501.2450 #### [facility] [address] [place], [address] T PROT 7.4 g/dL Normal 6.4-8.2 [facility] Comment on above: Performed By: #### L 500.4050, L100.0100, L501.2450 #### [facility] [address] [place], [address] Urea nitrogen [Mass/Vol] 15 mg/dL Normal 7-18 [facility] Comment on above: Performed By: #### L 500.4050, L100.0100, L501.2450 #### [facility] Laboratory [address] [place], [address] Emergency Department Summary on 11-18-2023 Emergency Department Summary [facility] Medical Records Department [address] [place] [address] Emergency Department Summary 11/18/23 MR#: [id number] Acct: [id number] Name: MARIE BLAIR Rep #: [id number] : 1945 78 From: Jose Duke MD PCP: Dr. Joe Tim MD Status:REG ER Location: ED HPI HPI [...] similar symptoms: Yes Recent Illness/Hospitalization: No PFSH PFS Medical History Squamous cell carcinoma in situ [...] rate, regular (more content not included)... Normal [facility] Gallbladderon 11-18-2023 Gallbladder [facility] Imaging Services [address] [place], [place] [address] Gallbladder MR#: [id number] Acct: [id number] Name: MARIE BLAIR Rep #: [id number] : 1945 F 78 From: Martin watters MD PCP: Dr. Joe Tim MD Status: REG ER Study: Gallbladder Date of Exam: 11/18/23 Exam# [id number] Ordering Dr: Jose Duke MD :[id number] STUDY: ABDOMINAL ULTRASOUND - RIGHT UPPER QUADRANT REASON FOR VISIT: Female, 78 years old ABDOMEN PAIN TECHNIQUE: Ultrasound evaluation of the right upper quadrant was performed with real-time and static zhou-scale imaging. TECHNICAL QUALITY: Limited. Examination limited by bowel gas. COMPARISON: Comparison is made with prior study November 07, 2023. FINDINGS: Liver: The liver measures 14.9 cm. [...] or cyst. There is no right hydronephrosis. US/Gallbladder IMPRESSION: Fatty infiltration of the liver. Multiple gallstones and thickened gallbladder wall. Small amount of pericholecystic fluid. Dilated common duct with possible calculus within the common bile duct. Electronically Signed: Martin James MD at 11:00 EDT , CC: Dr. Joe Tim MD; Dr. Jose Duke MD It Senior Analyst: Signed Normal [facility] H AND P Exam - Hospitaliston 11-18-2023 H&P Exam - Hospitalist [facility] Medical Records Department [address] [place] [address] H P Exam - Hospitalist 11/18/23 1201 MR#: [id number] Acct: [id number] Name: MARIE BLAIR Rep #: [id number] : 1945 78 From: Marah Sebastian MD PCP: Dr. Joe Tim MD Status:REG ER Location: ED HPI - General General Date of Admission: 11/18/23 Date of Service: 11/18/23 Chief Complaint: Abdominal pain HPI Narrative The patient is a 78 y/o F w/ PMHx: Hx TIA, HTN, HLD, Carotid disease, Possible chronic normocytic anemia who presents to the [facility] ED on 11/18/23 with abdominal discomfort recently [...] and patient will be administered IV Zosyn. [facility] Medical History (Updated 11/18/23 @ 15:47 [...] Physical Examinat (more content not included)... Normal [facility] HISTORY PHYSICALon HISTORY PHYSICAL HNO ID: [id number] Author: SHERRILL MCCONNELL MD Service: Hospital Medicine [...] to the emergency department she went to [facility]. Her ultrasound of the abdomen showed dilated common bile duct measuring 9 mm with common bile duct stones, gallbladder wall thickened and measures 7.4 mm with multiple gallstones transferred to [facility] for further management and plan. Non-smoker, nonalcoholic [...] output data in the 24 hours ending 11/18/23 2201 Current Facility-Administered Medications Medication Dose Route Frequency [...] gallstones and thickened gallbladder wall transferred to [facility] for further management and plan. Acute cholecystitis Choledocholithiasis Fatty liver -Complains of 3 weeks history of right upper quadrant intermittent achy abdominal pain ultrasound of the abdomen was obtained and showed fatty liver, multiple gallstones and thickened gallbladder wall with pericholecystic fluid, dilated common duct with calculus in the common bile duct. -Liver function test are unremarkable -Transferred to [facility] for further management > Consult general surgery, gastroenterology > Start empiric Zosyn Hyperlipidemia Hypertension -Resume home medications as prescribed Mild anemia -Will observe History of mini CVA likely TIA on aspirin -Resume aspirin DVT PPX: Heparin SQ Diet: Keep n.p.o. Code Status: Code, discussed with the patient and she wants to be fully resu (more content not included)... Normal [facility] Lipaseon 11-18-2023 Lipase [Catalytic activity/Vol] 24 U/L Normal 13-75 [facility] Comment on above: Result Comment: Halle astudillo note: LIPASE revised reference range effective 22. New Lipase methodology. Expected to produce lower values than the previous assay method. NEW Reference Range: 13 - 75 U/L Performed By: #### L 500.4050, L100.0100, L501.2450 #### [facility] Laboratory [address] [place], [address] Abdomen WITH IV Contraston 0 11-11-2023 Abdomen WITH IV Contrast [facility] Imaging Services [address] [place] [address] Abdomen WITH IV Contrast MR#: [id number] Acct: [id number] Name: MARIE BLAIR Rep #: [id number] : 1945 F 78 From: Jerry Kolb MD PCP: Dr. Joe Tim MD Status: [facility] Study: Abdomen WITH IV Contrast Date of Exam: 4 Exam# [id number] Ordering Dr: Beth Tucker MD ADDENDUM by Dr. Jerry Kolb MD on 11/12/23 at 1209 :[id number] STUDY: CT ABDOMEN WITH CONTRAST REASON FOR [...] used for this CT. COMPARISON: Ultrasound 11/07/2023 FINDINGS: The visualized lung bases are unremarkable. [...] dextroscoliosis lumbar spine with degenerative disc disease. 11/12/23 1209 Date cc: Dr. Beth Tucker MD; Dr. Joe Tim MD * Signed ADDENDUM by Dr. Jerry [...] cc: Dr. Beth Tucker MD; Dr. Joe Tim MD * Signed We are attempting to reach an attending provider to discuss findings. An addendum with communication details will be sent when the communication is complete. :[id number] STUDY: CT ABDOMEN WITH CONTRAST REASON FOR [...] used for this CT. COMPARISON: Ultrasound 11/07/2023 FINDINGS: The visualized lung bases are unremarkable. [...] dextroscoliosis lumbar spine with degenerative disc disease. CT/Abdomen WITH IV Contrast IMPRESSION: Suspect acute cholecystitis and clinical correlation is recommended. Electronically Signed: Jerry Kolb MD at 12:09 EDT , CC: Dr. Beth Tucker MD; Dr. Joe Tim MD It Senior Analyst: Signed Normal [facility] CREATININE FINGERSTICKon CREATININE WB < 1.0 Normal 0.55-1.02 [facility] Comment on above: Performed By: #### L 9100.0200 #### [facility] Laboratory [address] [place], [address] EGFR WB > 60.0000 Normal >60 [facility] Comment on above: Performed By: #### L 9100.0200 #### [facility] Laboratory [address] [place], [address] XR CHEST PA/APon 03-29-2022 XR CHEST PA/AP [...] FriMar 29, 2022 5:42:48 PM EST Normal [facility] Comment on above: Order Comment: Injur y/Trauma [...] be shared with your follow-up providers (doctor, change management manager, physical therapist, etc.). Post Procedure Discharge Criteria [...] of your hosp (more content not included)... 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 (procedure may be cancelled if no local [place] truck driver), center location, insurance information Prep Instructions Reviewedyes Instructed to Have No Fluids Aftermidnight How to be Addressedbarbara or Maty Spoken Language PreferredEnglish Source of Informationpatient Stated Reason for Admissionleft eye cataract surgery Primary Contact Name and NumberWalter Medications Brought to Hospitalno General Health: Weight in kg79.5 kilogram(s) Weight in agy088.2 pound(s) Weight Methodactual (measured) Scale Typestanding Height [...] Withspouse Living Arrangementshouse Resource/Environmental Concernsnone Anticipated Transition [place] Services Anticipated at Transitionnone Tobacco Use: Tobacco Useno Pre-op Checklist: Arrival [id number] Arrival Time10:52 Procedure TypeLeft ey cataract surgery NPOyes Last Food [id number] 18:00 Last Clear Fluid [id number] 07:00 ID Band On Patientpatient ID (name) [...] parts of digestive tract Electronic Signatures: Angelina Chaney) (Signed 30-Aug-2021 11:08) Authored: Initial Info, General Health, Health Mgmt, Relationship/Environ, Pre-op Checklist, Additional Information Batsheva Tan) (Signed 29-Aug-2021 10:11) Authored: Initial Info, General Health, Tobacco Use, Additional Information Last Updated: 30-Aug-2021 11:08 by Angelina Chaney) [facility] US DOPPLER CAROTIDon 021 US DOPPLER CAROTID Patient Info Name: MARIE BLAIR Age: 75 years : 1945 Gender: Female Exam Date: 12/26/2020 9:04 AM Patient Status: Outpatient Small Products I Assembler: Shaniqua Lira, CORETTA, RVT Referring Physician: RTEVER BILLINGS ; Indications I65.23 - Occlusion and stenosis of bilateral carotid arteries Procedure Description 93341 Duplex examination using B-mode, color and spectral [...] artery is patent with antegrade flow. Measurements Name Value Right PSV Right Prox CCA PSV 122 cm/s Right Mid CCA PSV 114 cm/s Right Distal CCA PSV 114 cm/s Right Prox ICA PSV 86 cm/s Right Mid ICA PSV 74 cm/s Right Distal ICA PSV 85 cm/s Right ECA PSV 185 cm/s Right Vert PSV 66 cm/s BC PSV 83 cm/s Right Prox SCA PSV 96 cm/s Rt ICA/CCA Ratio 0.8 Measurements Name Value Right EDV Right Prox CCA EDV 23 cm/s Right Mid CCA EDV 23 cm/s Right Distal CCA EDV 31 cm/s Right Prox ICA EDV 16 cm/s Right Mid ICA EDV 24 cm/s Right Distal ICA EDV 27 cm/s Right ECA EDV 25 cm/s Right Vert EDV 22 cm/s BC EDV 0 cm/s Right Prox SCA EDV 0 cm/s Measurements Name Value Left PSV Left Prox CCA PSV 110 cm/s Left Mid CCA PSV 99 cm/s Left Distal CCA PSV 82 cm/s Left Prox ICA PSV 106 cm/s Left Mid ICA PSV 114 cm/s Left Distal ICA PSV 141 cm/s Left ECA PSV 161 cm/s Left Vert PSV 42 cm/s Left Prox SCA PSV 115 cm/s Lt ICA/CCA Ratio 1.3 Measurements Name Value Left EDV Left Prox CCA EDV 33 cm/s Left [...] MD, RPVI on 12/27/2020 08:05 AM Normal [facility] MA Mamm Screen w/CAD if perf ormed bilaton 11-25-2018 [place] Mamm Screen w/CAD if performed bilat Exam Date/Time: 11/24/2018 09:47 EDT Reason for Exam: SCREENING Z12.31 Report STUDY: Digital mammography screening; 11/24/2018 9:47 am ACCESSION NUMBER(S): [id number] ORDERING CLINICIAN: Trever Billings INDICATION: Screening. COMPARISON: [...] 2-Benign finding Recommendation: Normal interval follow-up Normal [facility] No Panel Information [facility] Vital Signs Date Time Vital Sign Value Performing Clinician Facility 11-11-2024 03:08-0400 Body temperature 98.2 [degF] Joe Tim MD Work Phone: [facility] 11-11-2024 03:08-0400 Diastolic blood pressure 56 mm[Hg] Joe Tim MD Work Phone: [facility] 11-11-2024 03:08-0400 Heart rate 76 /min Joe Tim MD Work Phone: [facility] 11-11-2024 03:08-0400 Respiratory rate 18 /min Joe Tim MD Work Phone: [facility] 11-11-2024 03:08-0400 SaO2% (BldA) [Mass fraction] 97 % Joe Tim MD Work Phone: [facility] 11-11-2024 03:08-0400 Systolic blood pressure 118 mm[Hg] Joe Tim MD Work Phone: [facility] 11-11-2024 03:00-0400 Inhaled oxygen flow rate 2 L/min Joe Tim MD Work Phone: [facility] 11-10-2024 17:08-0400 Body height 172.72 cm Joe Tim MD Work Phone: [facility] 11-10-2024 17:08-0400 Body mass index (BMI) [Ratio] 22.9 kg/m2 Joe Tim MD Work Phone: [facility] 11-10-2024 17:08-0400 Body weight 68.5 kg Joe Tim MD Work Phone: [facility] 11-09-2024 11:30-0400 Diastolic blood pressure 63 mm[Hg] Stacy Santamaria MD Work Phone: [facility] 11-09-2024 11:30-0400 Heart rate 69 /min Stacy Santamaria MD Work Phone: [facility] 11-09-2024 11:30-0400 Respiratory rate 22 /min Stacy Santamaria MD Work Phone: [facility] 11-09-2024 11:30-0400 SaO2% (BldA) [Mass fraction] 100 % Stacy Santamaria MD Work Phone: [facility] 11-09-2024 11:30-0400 Systolic blood pressure 135 mm[Hg] Stacy Santamaria MD Work Phone: [facility] 11-09-2024 11:00-0400 Body temperature 97.2 [degF] Stacy Santamaria MD Work Phone: [facility] 11-09-2024 08:40-0400 Body height 172.7 cm Stacy Santamaria MD Work Phone: [facility] 11-09-2024 08:40-0400 Body mass index (BMI) [Ratio] 22.8 kg/m2 Stacy Santamaria MD Work Phone: [facility] 11-09-2024 08:40-0400 Body weight 68 kg Stacy Santamaria MD Work Phone: [facility] 07-14-2024 13:19-0400 Body mass index (BMI) [Ratio] 25.23 kg/m2 Tin Jose DO Work Phone: [facility] 07-14-2024 13:19-0400 Body temperature 97.5 [degF] Tin Jose DO Work Phone: [facility] 07-14-2024 13:19-0400 Body weight 74.16 kg Tin Jose DO Work Phone: [facility] 07-14-2024 13:19-0400 Diastolic blood pressure 75 mm[Hg] Tin Jose DO Work Phone: [facility] 07-14-2024 13:19-0400 Heart rate 78 /min Tin Jose DO Work Phone: [facility] 07-14-2024 13:19-0400 SaO2% (BldA) [Mass fraction] 99 % Tin Jose DO Work Phone: [facility] 07-14-2024 13:19-0400 Systolic blood pressure 150 mm[Hg] Tin Jose DO Work Phone: [facility] 06-22-2024 09:25-0400 Body mass index (BMI) [Ratio] 24.46 kg/m2 Denice Orozco GRADES 9 12 TUTOR.CEREAL MAKER Work Phone: [facility] 06-22-2024 09:25-0400 Body temperature 97.7 [degF] Denice Orozco GRADES 9 12 TUTOR.CEREAL MAKER Work Phone: [facility] 06-22-2024 09:25-0400 Body weight 71.9 kg Cana Orozco GRADES 9 12 TUTOR.CEREAL MAKER Work Phone: [facility] 06-22-2024 09:25-0400 Diastolic blood pressure 78 mm[Hg] Cana Orozco GRADES 9 12 TUTOR.CEREAL MAKER Work Phone: [facility] 06-22-2024 09:25-0400 Heart rate 76 /min Denice Orozco GRADES 9 12 TUTOR.CEREAL MAKER Work Phone: [facility] 06-22-2024 09:25-0400 SaO2% (BldA) [Mass fraction] 94 % Denice Orozco GRADES 9 12 TUTOR.CEREAL MAKER Work Phone: [facility] 06-22-2024 09:25-0400 Systolic blood pressure 137 mm[Hg] Denice Orozco GRADES 9 12 TUTOR.CEREAL MAKER Work Phone: [facility] 06-08-2024 10:11-0400 Body mass index (BMI) [Ratio] 24.35 kg/m2 Taty Pieter GRADES 9 12 TUTOR.CEREAL MAKER Work Phone: [facility] 06-08-2024 10:11-0400 Body weight 71.58 kg Taty [place] GRADES 9 12 TUTOR.CEREAL MAKER Work Phone: [facility] 06-08-2024 10:11-0400 Diastolic blood pressure 76 mm[Hg] Taty Pieter GRADES 9 12 TUTOR.CEREAL MAKER Work Phone: [facility] 06-08-2024 10:11-0400 Systolic blood pressure 130 mm[Hg] Taty Pieter GRADES 9 12 TUTOR.CEREAL MAKER Work Phone: [facility] 06-04-2024 08:38-0500 Body mass index (BMI) [Ratio] 24.09 kg/m2 Denice Orozco GRADES 9 12 TUTOR.CEREAL MAKER Work Phone: [facility] 06-04-2024 08:38-0500 Body temperature 97.81 [degF] Cana Orozco GRADES 9 12 TUTOR.CEREAL MAKER Work Phone: [facility] 06-04-2024 08:38-0500 Body weight 70.8 kg Denice Orozco GRADES 9 12 TUTOR.CEREAL MAKER Work Phone: [facility] 06-04-2024 08:38-0500 Diastolic blood pressure 81 mm[Hg] Cana Orozco GRADES 9 12 TUTOR.CEREAL MAKER Work Phone: [facility] 06-04-2024 08:38-0500 Heart rate 71 /min Cana Orozco GRADES 9 12 TUTOR.CEREAL MAKER Work Phone: [facility] 06-04-2024 08:38-0500 SaO2% (BldA) [Mass fraction] 94 % Cana Orozco GRADES 9 12 TUTOR.CEREAL MAKER Work Phone: [facility] 06-04-2024 08:38-0500 Systolic blood pressure 138 mm[Hg] Cana Orozco GRADES 9 12 TUTOR.CEREAL MAKER Work Phone: [facility] 05-14-2024 09:02-0500 Body mass index (BMI) [Ratio] 23.85 kg/m2 Denice Orozco GRADES 9 12 TUTOR.CEREAL MAKER Work Phone: [facility] 05-14-2024 09:02-0500 Body temperature 97.81 [degF] Denice Orozco GRADES 9 12 TUTOR.CEREAL MAKER Work Phone: [facility] 05-14-2024 09:02-0500 Body weight 70.1 kg Denice Orozco GRADES 9 12 TUTOR.CEREAL MAKER Work Phone: [facility] 05-14-2024 09:02-0500 Diastolic blood pressure 74 mm[Hg] Denice Orozco GRADES 9 12 TUTOR.CEREAL MAKER Work Phone: [facility] 05-14-2024 09:02-0500 Heart rate 78 /min Denice Orozco GRADES 9 12 TUTOR.CEREAL MAKER Work Phone: [facility] 05-14-2024 09:02-0500 SaO2% (BldA) [Mass fraction] 98 % Denice Orozco GRADES 9 12 TUTOR.CEREAL MAKER Work Phone: [facility] 05-14-2024 09:02-0500 Systolic blood pressure 128 mm[Hg] Denice Orozco GRADES 9 12 TUTOR.CEREAL MAKER Work Phone: [facility] 2024 08:35-0500 Body mass index (BMI) [Ratio] 23.61 kg/m2 Cana Orozco GRADES 9 12 TUTOR.CEREAL MAKER Work Phone: [facility] 2024 08:35-0500 Body temperature 97.81 [degF] Cana Orozco GRADES 9 12 TUTOR.CEREAL MAKER Work Phone: [facility] 2024 08:35-0500 Body weight 69.4 kg Denice Orozco GRADES 9 12 TUTOR.CEREAL MAKER Work Phone: [facility] 2024 08:35-0500 Diastolic blood pressure 80 mm[Hg] Denice Orozco GRADES 9 12 TUTOR.CEREAL MAKER Work Phone: [facility] 2024 08:35-0500 Heart rate 73 /min Denice Orozco GRADES 9 12 TUTOR.CEREAL MAKER Work Phone: [facility] 2024 08:35-0500 SaO2% (BldA) [Mass fraction] 97 % Denice Orozco GRADES 9 12 TUTOR.CEREAL MAKER Work Phone: [facility] 2024 08:35-0500 Systolic blood pressure 135 mm[Hg] Cana Orozco GRADES 9 12 TUTOR.CEREAL MAKER Work Phone: [facility] 04-02-2024 08:40-0500 Body mass index (BMI) [Ratio] 23.17 kg/m2 Denice Orozco GRADES 9 12 TUTOR.CEREAL MAKER Work Phone: [facility] 04-02-2024 08:40-0500 Body temperature 98.1 [degF] Cana Orozco GRADES 9 12 TUTOR.CEREAL MAKER Work Phone: [facility] 04-02-2024 08:40-0500 Body weight 68.1 kg Cana Orozco GRADES 9 12 TUTOR.CEREAL MAKER Work Phone: [facility] 04-02-2024 08:40-0500 Diastolic blood pressure 71 mm[Hg] Cana Orozco GRADES 9 12 TUTOR.CEREAL MAKER Work Phone: [facility] 04-02-2024 08:40-0500 Heart rate 74 /min Cana Orozco GRADES 9 12 TUTOR.CEREAL MAKER Work Phone: [facility] 04-02-2024 08:40-0500 SaO2% (BldA) [Mass fraction] 99 % Cana Orozco GRADES 9 12 TUTOR.CEREAL MAKER Work Phone: [facility] 04-02-2024 08:40-0500 Systolic blood pressure 125 mm[Hg] Cana Orozco GRADES 9 12 TUTOR.CEREAL MAKER Work Phone: [facility] 03-11-2024 09:00-0500 Body mass index (BMI) [Ratio] 22.79 kg/m2 Denice Orozco GRADES 9 12 TUTOR.CEREAL MAKER Work Phone: [facility] 03-11-2024 09:00-0500 Body temperature 97.7 [degF] Cana Orozco GRADES 9 12 TUTOR.CEREAL MAKER Work Phone: [facility] 03-11-2024 09:00-0500 Body weight 67 kg Denice Orozco GRADES 9 12 TUTOR.CEREAL MAKER Work Phone: [facility] 03-11-2024 09:00-0500 Diastolic blood pressure 73 mm[Hg] Cana Orozco GRADES 9 12 TUTOR.CEREAL MAKER Work Phone: [facility] 03-11-2024 09:00-0500 Heart rate 82 /min Denice Orozco GRADES 9 12 TUTOR.CEREAL MAKER Work Phone: [facility] 03-11-2024 09:00-0500 SaO2% (BldA) [Mass fraction] 99 % Denice Orozco GRADES 9 12 TUTOR.CEREAL MAKER Work Phone: [facility] 03-11-2024 09:00-0500 Systolic blood pressure 133 mm[Hg] Cana Orozco GRADES 9 12 TUTOR.CEREAL MAKER Work Phone: [facility] 02-20-2024 09:13-0500 Body mass index (BMI) [Ratio] 22.15 kg/m2 Denice Orozco GRADES 9 12 TUTOR.CEREAL MAKER Work Phone: [facility] 02-20-2024 09:13-0500 Body temperature 97.39 [degF] Cana Orozco GRADES 9 12 TUTOR.CEREAL MAKER Work Phone: [facility] 02-20-2024 09:13-0500 Body weight 65.1 kg Cana Orozco GRADES 9 12 TUTOR.CEREAL MAKER Work Phone: [facility] 02-20-2024 09:13-0500 Diastolic blood pressure 74 mm[Hg] Cana Orozco GRADES 9 12 TUTOR.CEREAL MAKER Work Phone: [facility] 02-20-2024 09:13-0500 Heart rate 87 /min Cana Orozco GRADES 9 12 TUTOR.CEREAL MAKER Work Phone: [facility] 02-20-2024 09:13-0500 SaO2% (BldA) [Mass fraction] 100 % Cana Orozco GRADES 9 12 TUTOR.CEREAL MAKER Work Phone: [facility] 02-20-2024 09:13-0500 Systolic blood pressure 116 mm[Hg] Cana Orozco GRADES 9 12 TUTOR.CEREAL MAKER Work Phone: [facility] 01-30-2024 09:11-0400 Body mass index (BMI) [Ratio] 21.67 kg/m2 Cana Orozco GRADES 9 12 TUTOR.CEREAL MAKER Work Phone: [facility] 01-30-2024 09:11-0400 Body temperature 97.7 [degF] Cana Orozco GRADES 9 12 TUTOR.CEREAL MAKER Work Phone: [facility] 01-30-2024 09:11-0400 Body weight 63.7 kg Denice Orozco GRADES 9 12 TUTOR.CEREAL MAKER Work Phone: [facility] 01-30-2024 09:11-0400 Diastolic blood pressure 68 mm[Hg] Cana Orozco GRADES 9 12 TUTOR.CEREAL MAKER Work Phone: [facility] 01-30-2024 09:11-0400 Heart rate 85 /min Denice Orozco GRADES 9 12 TUTOR.CEREAL MAKER Work Phone: [facility] 01-30-2024 09:11-0400 SaO2% (BldA) [Mass fraction] 91 % Cana Orozco GRADES 9 12 TUTOR.CEREAL MAKER Work Phone: [facility] 01-30-2024 09:11-0400 Systolic blood pressure 113 mm[Hg] Denice Orozco GRADES 9 12 TUTOR.CEREAL MAKER Work Phone: [facility] 01-05-2024 08:40-0400 Body mass index (BMI) [Ratio] 22.21 kg/m2 Cana Orozco GRADES 9 12 TUTOR.CEREAL MAKER Work Phone: [facility] 01-05-2024 08:40-0400 Body temperature 97.59 [degF] Cana Orozco GRADES 9 12 TUTOR.CEREAL MAKER Work Phone: [facility] 01-05-2024 08:40-0400 Body weight 65.3 kg Cana Orozco GRADES 9 12 TUTOR.CEREAL MAKER Work Phone: [facility] 01-05-2024 08:40-0400 Diastolic blood pressure 74 mm[Hg] Cana Orozco GRADES 9 12 TUTOR.CEREAL MAKER Work Phone: [facility] 01-05-2024 08:40-0400 Heart rate 100 /min Cana Orozco GRADES 9 12 TUTOR.CEREAL MAKER Work Phone: [facility] 01-05-2024 08:40-0400 SaO2% (BldA) [Mass fraction] 97 % Denice Orozco GRADES 9 12 TUTOR.CEREAL MAKER Work Phone: [facility] 01-05-2024 08:40-0400 Systolic blood pressure 111 mm[Hg] Cana Orozco GRADES 9 12 TUTOR.CEREAL MAKER Work Phone: [facility] 12-26-2023 09:31-0400 Body height 171.5 cm Mikala Jones MD Work Phone: [facility] 12-26-2023 09:31-0400 Diastolic blood pressure 64 mm[Hg] Mikala Jones MD Work Phone: [facility] 12-26-2023 09:31-0400 Heart rate 52 /min Mikala Jones MD Work Phone: [facility] 12-26-2023 09:31-0400 SaO2% (BldA) [Mass fraction] 98 % Mikala Jones MD Work Phone: [facility] 12-26-2023 09:31-0400 Systolic blood pressure 108 mm[Hg] Mikala Jones MD Work Phone: [facility] 12-16-2023 14:42-0400 Body height 171.5 cm Tin Masci DO Work Phone: [facility] 12-16-2023 14:42-0400 Body mass index (BMI) [Ratio] 22.38 kg/m2 Tin Masci DO Work Phone: [facility] 12-16-2023 14:42-0400 Body temperature 97.9 [degF] Tin Masci DO Work Phone: [facility] 12-16-2023 14:42-0400 Body weight 65.77 kg Tin Masci DO Work Phone: [facility] 12-16-2023 14:42-0400 Diastolic blood pressure 78 mm[Hg] Tin Masci DO Work Phone: [facility] 12-16-2023 14:42-0400 Heart rate 104 /min Tin Masci DO Work Phone: [facility] 12-16-2023 14:42-0400 SaO2% (BldA) [Mass fraction] 98 % Tin Masci DO Work Phone: [facility] 12-16-2023 14:42-0400 Systolic blood pressure 116 mm[Hg] Tin Masci DO Work Phone: [facility] 09-07-2021 10:35-0400 Diastolic blood pressure 88 mm[Hg] Darrell Holland MD Work Phone: [facility] 09-07-2021 10:35-0400 Heart rate 92 /min Darrell Holland MD Work Phone: [facility] 09-07-2021 10:35-0400 Respiratory rate 16 /min Darrell Holland MD Work Phone: [facility] 09-07-2021 10:35-0400 SaO2% (BldA) [Mass fraction] 99 % Darrell Holland MD Work Phone: [facility] 09-07-2021 10:35-0400 Systolic blood pressure 151 mm[Hg] Darrell Holland MD Work Phone: [facility] 09-07-2021 10:19-0400 Body temperature 97.9 [degF] Darrell Holland MD Work Phone: [facility] 09-07-2021 09:58-0400 Body height 172.7 cm Darrell Holland MD Work Phone: [facility] 09-07-2021 09:58-0400 Body weight 79.38 kg Darrell Holland MD Work Phone: [facility] 08-31-2021 14:29-0400 Diastolic blood pressure 80 mm[Hg] Darrell Holland MD Work Phone: [facility] 08-31-2021 14:29-0400 Heart rate 65 /min Darrell Holland MD Work Phone: [facility] 08-31-2021 14:29-0400 Systolic blood pressure 135 mm[Hg] Darrell Holland MD Work Phone: [facility] 08-21-2021 11:02-0400 Diastolic blood pressure 80 mm[Hg] Darrell Holland MD Work Phone: [facility] 08-21-2021 11:02-0400 Heart rate 65 /min Darrell Holland MD Work Phone: [facility] 08-21-2021 11:02-0400 Systolic blood pressure 135 mm[Hg] Darrell Holland MD Work Phone: [facility] 08-07-2021 08:44-0400 Diastolic blood pressure 80 mm[Hg] Darrell Holland MD Work Phone: [facility] 08-07-2021 08:44-0400 Heart rate 65 /min Darrell Holland MD Work Phone: [facility] 08-07-2021 08:44-0400 Systolic blood pressure 135 mm[Hg] Darrell Holland MD Work Phone: [facility] Encounters Encounter Date Encounter Type Care Provider Facility Start: 11-11-2024 Evaluation and management of inpatient Dr. Trever Sanchez DO -[facility] Work Phone: Start: 11-09-2024 End: 11-09-2024 Orders Only Mikala Jones MD Work Phone: [facility] Comment on above: Gallbladder cancer (HCC) (Primary Dx) Choledocholithiasis [K80.50] Start: 11-08-2024 Encounter for general adult medical examination without abnormal findings Joe Tim [facility] Start: 11-02-2024 Encounter for other preprocedural examination STACY SANTAMARIA [facility] Start: 11-02-2024 Patient encounter status Mikala Jones MD Work Phone: [facility] Start: 11-02-2024 End: 11-02-2024 ambulatory TIN A REBECA Facility:[facility] Start: 11-01-2024 End: 11-01-2024 ambulatory Joe Tim MD Work Phone: -[facility] Start: 11-01-2024 End: 11-01-[address] Joe Tim MD -[facility] Start: 11-01-2024 End: 11-01-2024 ambulatory Joe Tim Facility:[facility] Start: 10-26-2024 End: 10-26-2024 Telephone encounter Stacy Santamaria MD Work Phone: G[facility]enter[facility] [place] Comment on above: Appointment Choledocholithiasis (Primary Dx) Start: 10-25-2024 End: 10-25-2024 ambulatory TIN A REBECA Facility:[facility] Start: 10-20-2024 End: 10-22-2024 Telephone encounter Tin Fariasefra KIRK Work Phone: Hematology/Oncology Comment on above: Appointment Start: 10-13-2024 End: 10-13-2024 ambulatory TIN JOSE Facility:[facility] Start: 10-13-2024 End: 10-13-2024 Subsequent hospital visit by physician Peggy [facility] (I-Stat) Work Phone: Cat Scan Comment on above: 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] Start: 10-11-2024 End: 10-12-2024 Telephone encounter Tin Carrizales Rebeca KIRK Work Phone: Hematology/Oncology Comment on above: Orders Start: 07-14-2024 End: 07-14-2024 Patient encounter procedure Tin Fariasefra KIRK Work Phone: Hematology/Oncology Start: 07-14-2024 End: 07-14-2024 ambulatory Tin Jose DO Work Phone: Hematology/Oncology Comment on above: Cholangiocarcinoma (HCC) (Primary Dx) Start: 07-12-2024 End: 07-12-2024 Specialty Pharmacy Randi Crews [facility] Comment on above: SPP Oral Oncology/hematology - Medicatio n Refill (capecitabine) Start: 07-07-2024 End: 07-07-2024 ambulatory [facility] Facility:[facility] Start: 07-07-2024 End: 07-07-2024 ambulatory [facility] Facility:[facility] Start: 07-07-2024 End: 07-07-2024 Subsequent hospital visit by physician Peggy Santiago [facility] Cat Scan Comment on above: 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] Start: 06-28-2024 End: 08-28-2024 Follow-up encounter Taty Velazquez APRN.CEREAL MAKER Work Phone: OB/Gynecology Comment on above: Results Start: 06-22-2024 End: 06-22-2024 Patient encounter procedure Denice Orozco APRN.CEREAL MAKER Work Phone: Hematology/Oncology Start: 06-22-2024 End: 06-22-2024 ambulatory Denice Orozco APRN.CEREAL MAKER Work Phone: Hematology/Oncology Comment on above: Gallbladder cancer (HCC) (Primary Dx) Start: 06-21-2024 End: 06-21-2024 Specialty Pharmacy Randi Crews [facility] Comment on above: SPP Oral Oncology/hematology - Medicatio n Refill (Capecitabine) Start: 06-14-2024 End: 06-14-2024 ambulatory [facility] Facility:[facility] Start: 06-14-2024 End: 06-14-2024 Subsequent hospital visit by physician [employer] [facility] (I-Stat/1.5t) Work Phone: Radiology Comment on above: 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] Start: 06-08-2024 End: 06-08-2024 ambulatory [facility] Facility:[facility] Start: 06-08-2024 End: 06-08-2024 Patient encounter procedure Taty Velazquez APRN.CEREAL MAKER Work Phone: OB/Gynecology Comment on above: Adrenal mass greater than 4 cm in diamet er (HCC) (Primary Dx) Start: 06-04-2024 End: 06-04-2024 Patient encounter procedure Denice Orozco APRN.CNP Work Phone: Hematology/Oncology Start: 06-04-2024 End: 06-04-2024 ambulatory Denice Orozco APRN.CEREAL MAKER Work Phone: Hematology/Oncology Comment on above: Gallbladder cancer (HCC) (Primary Dx) Start: 06-02-2024 End: 06-02-2024 ambulatory Joe Tim MD Work Phone: [facility] Work Phone: Start: 06-02-2024 End: 06-02-[address] Joe Tim MD -Outpatient Bone Densitometry Work Phone: Start: 06-02-2024 End: 06-02-2024 ambulatory Joe Renzo Facility:[facility] Start: 05-31-2024 End: 05-31-2024 Specialty Pharmacy Randi Crews [facility] Comment on above: SPP Oral Oncology/hematology - Medicatio n Refill (capecitabine) Start: 05-14-2024 End: 05-14-2024 Patient encounter procedure Denice Orozco APRN.CNP Work Phone: Hematology/Oncology Start: 05-14-2024 End: 05-14-2024 ambulatory Denice Orozco APRN.CNP Work Phone: Hematology/Oncology Comment on above: Gallbladder cancer (HCC) (Primary Dx) Start: 05-13-2024 End: 05-14-2024 Specialty Pharmacy Randi Crews [facility] Comment on above: SPP Oral Oncology/hematology - Medicatio n Refill (capecitabine) Start: 05-10-2024 End: 05-12-2024 Refill Tin Jose DO Work Phone: Hematology/Oncology Comment on above: Refill Request Start: 04-26-2024 End: 04-26-2024 Telephone encounter Denice Orozco APRN.CEREAL MAKER Work Phone: Hematology/Oncology Comment on above: SPP Oral Oncology/hematology - Medicatio n Refill (capecitabine) Start: 04-26-2024 End: 04-26-2024 ambulatory Waldo Ghosh [facility] Start: 04-26-2024 End: 04-26-2024 Subsequent hospital visit by physician [facility] Work Phone: Radiology Comment on above: 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] Start: 2024 End: 2024 Manual pelvic examination Denice Orozco APRN.CEREAL MAKER Work Phone: Hematology/Oncology Comment on above: Gallbladder cancer (HCC) (Primary Dx); Pelvic cyst in female; Abnormal CT scan, pelvis Start: 2024 End: 2024 Patient encounter procedure Denice Orozco APRN.CEREAL MAKER Work Phone: Hematology/Oncology Start: 2024 End: 04-26-2024 ambulatory [facility] Facility:[facility] Start: 04-20-2024 End: 04-20-2024 Specialty Pharmacy [facility] Comment on above: SPP Oral Oncology/hematology - Medicatio n Refill (capecitabine) Start: 04-19-2024 End: 04-19-2024 ambulatory [facility] Facility:[facility] Start: 04-19-2024 End: 04-19-2024 ambulatory [facility] Facility:[facility] Start: 04-19-2024 End: 04-19-2024 Subsequent hospital visit by physician [facility] (I-Stat) Work Phone: Cat Scan Comment on above: 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] Start: 04-02-2024 End: 04-02-2024 ambulatory Denice Orozco GRADES 9 12 TUTOR.CEREAL MAKER Work Phone: Hematology/Oncology Comment on above: Gallbladder cancer (HCC) (Primary Dx) Start: 04-02-2024 End: 04-02-2024 Patient encounter procedure Denice Orozco GRADES 9 12 TUTOR.CEREAL MAKER Work Phone: Hematology/Oncology Start: 03-29-2024 End: 03-29-2024 Specialty Pharmacy [facility] Comment on above: SPP Oral Oncology/hematology - Medicatio n Refill (Capecitabine 500mg) Start: 03-11-2024 End: 03-11-2024 Patient encounter procedure Denice Orozco GRADES 9 12 TUTOR.CEREAL MAKER Work Phone: Hematology/Oncology Start: 03-11-2024 End: 03-11-2024 ambulatory Cana Orozco GRADES 9 12 TUTOR.CEREAL MAKER Work Phone: Hematology/Oncology Comment on above: Gallbladder cancer (HCC) (Primary Dx) Start: 03-08-2024 End: 03-08-2024 Specialty Pharmacy [facility] Comment on above: SPP Oral Oncology/hematology - Medicatio n Refill (capecitabine) Start: 02-20-2024 End: 02-20-2024 Patient encounter procedure Denice Orozco GRADES 9 12 TUTOR.CEREAL MAKER Work Phone: Hematology/Oncology Start: 02-20-2024 End: 02-20-2024 ambulatory Denice Orozco GRADES 9 12 TUTOR.CEREAL MAKER Work Phone: Hematology/Oncology Comment on above: Gallbladder cancer (HCC) (Primary Dx) Start: 02-17-2024 End: 02-17-2024 Specialty Pharmacy Tracie Dunlap [facility] Comment on above: SPP Oral Oncology/hematology - Medicatio n Refill (capecitabine) Start: 02-10-2024 ambulatory [facility] Facility:[facility] Start: 02-10-2024 End: 02-10-2024 ambulatory [facility] Facility:[facility] Start: 01-30-2024 End: 01-30-2024 Patient encounter procedure Denice Orozco GRADES 9 12 TUTOR.CEREAL MAKER Work Phone: Hematology/Oncology Start: 01-30-2024 End: 01-30-2024 ambulatory Denice Orozco GRADES 9 12 TUTOR.CEREAL MAKER Work Phone: Hematology/Oncology Comment on above: Gallbladder cancer (HCC) (Primary Dx) Start: 01-26-2024 End: 01-26-2024 Specialty Pharmacy Randi Crews [facility] Comment on above: SPP Oral Oncology/hematology - Medicatio n Refill (Capecitabine 500 mg) Start: 01-19-2024 End: 01-19-2024 Telephone encounter Teresa Moore RN Hematology/Oncology Start: 01-07-2024 End: 01-08-2024 Telephone encounter Tin Jose DO Work Phone: Hematology/Oncology Start: 01-06-2024 End: 01-06-2024 ambulatory [facility] Facility:[facility] Start: 01-05-2024 End: 01-05-2024 ambulatory Denice Orozco GRADES 9 12 TUTOR.CEREAL MAKER Work Phone: Hematology/Oncology Comment on above: Gallbladder cancer (HCC) (Primary Dx) Start: 01-05-2024 End: 01-05-2024 Patient encounter procedure Denice Orozco GRADES 9 12 TUTOR.CEREAL MAKER Work Phone: Hematology/Oncology Start: 12-26-2023 End: 12-26-2023 Telephone encounter Teresa Moore RN Hematology/Oncology Comment on above: Return Agent [place] - Other (Oral Anti-Canc er Agents Education (Xeloda)) Start: 12-26-2023 End: 12-26-2023 Office outpatient visit 25 minutes Mikala Jones MD Work Phone: [facility] Comment on above: Adenocarcinoma of gallbladder (HCC) (Tracey belen Dx) Start: 12-26-2023 End: 12-26-2023 ambulatory MIKALA JONES [facility] Start: 12-25-2023 End: 12-25-2023 Orders Only Mikala Jones MD Work Phone: [place] [facility] Start: 12-19-2023 End: 12-19-2023 Telephone encounter Mikala Jones MD Work Phone: [facility] Start: 12-17-2023 End: 12-17-2023 ambulatory Randi Crews [facility] Start: 12-17-2023 End: 12-17-2023 Patient encounter procedure Randi Crews [facility] Comment on above: SPP Oral Oncology/hematology - Treatment Referral (Capecitabine); Insurance Authorization (No PA needed) Start: 12-16-2023 End: 12-16-2023 ambulatory Tin Jose DO Work Phone: Hematology/Oncology Comment on above: Gallbladder cancer (HCC) (Primary Dx); Anemia, unspecified type; Cholangiocarcinoma (HCC) Start: 12-16-2023 End: 12-16-2023 Patient encounter procedure Tin Jose DO Work Phone: Hematology/Oncology Start: 12-15-2023 End: 12-15-2023 ambulatory MIKALA JONES [facility] Start: 12-15-2023 End: 12-15-2023 Postop follow up visit related to original px Mikala Jones MD Work Phone: [facility] Comment on above: Adenocarcinoma of gallbladder (HCC) (Tracey belen Dx) Start: 12-03-2023 End: 12-03-2023 Orders Only Mikala Jones MD Work Phone: [place] [facility] Comment on above: Adenocarcinoma of gallbladder (HCC) (Tracey belen Dx) Start: 11-25-2023 End: 11-25-2023 Evaluation and management of inpatient RUBIA BLAIR Facility:[facility] Start: 11-20-2023 End: 12-06-2023 Evaluation and management of inpatient DELFINA Julia BLACK Facility:[facility] Start: 11-18-2023 End: 11-20-2023 Evaluation and management of inpatient SHERRILL MCCONNELL Facility:[id number] Start: 11-18-2023 ambulatory Jose Duke Facility:[facility] Start: 11-18-2023 ambulatory Joe Tim Facility:[facility] Start: 11-18-2023 End: 11-18-2023 Emergency department patient visit Jose Duke Facility:[facility] Start: 11-11-2023 End: 11-11-2023 ambulatory Beth Tucker Facility:[facility] Start: 04-09-2022 End: 04-09-2022 Patient encounter procedure Darrell Holland MD Work Phone: Ophthalmology Comment on above: Fuchs' corneal dystrophy of both eyes (P rimary Dx); Nevus of choroid of right eye; Pseudophakia of both eyes; Essential hypertension; Hypercholesteremia Start: 03-29-2022 End: 03-29-2022 Emergency department patient visit TREVER [facility] Start: 09-08-2021 End: 09-08-2021 Patient encounter procedure [...] Essential hypertension Start: 12-26-2020 End: 12-27-2020 ambulatory [facility] Start: 08-02-2018 Patient encounter procedure Facility:[id number] Procedures Date Procedure Procedure Detail Performing Clinician Start: 11-10-2024 X-ray of chest, PA a nd lateral views Joe Tim MD Work Phone: Start: 11-10-2024 Urnls dip stick/tabl et reagent auto microscopy Joe Tim MD Work Phone: Start: 11-10-2024 Computed tomography of abdomen and pelvis with intravenous contrast Joe Tim MD Work Phone: Start: 11-10-2024 Estimated creatinine clearance Joe Tim MD Work Phone: Start: 11-09-2024 Ercp dx collection s pecimen brushing/washing Stacy Santamaria MD Work Phone: Start: 06-02-2024 Dual energy X-ray absorptiometry Joe Tim MD Work Phone: Start: 11-20-2023 Antibody screen AMEED B AWWAB Comment on above: Order Comment: Speci men Type: BLOOD SPECIMEN Ordering Facility: [facility] Address: [address] [place], [place] [address], [place] [address] Performed By: #### 5 [id number] #### [facility] CLIA [id number] [address] [place], [place] [id number] [place] Start: 04-09-2022 Fundus photography w/interpretation & report Darrell Holland MD Work Phone: Start: 08-07-2021 IOL BIOMETRY W/ IOL CALC OU (BOTH EYES) Darrell Holland MD Work Phone: Start: 08-07-2021 End: 08-07-2021 Computerized ophthalmic imaging retina Darrell Holland MD Work Phone: Plan of Treatment Date Care Activity Detail Author Start: 11-03-2027 Diabetes Screening Diabetes Screening [facility] Start: 10-26-2027 Diabetes Screening Diabetes Screening [facility] Start: 07-15-2027 Diabetes Screening Diabetes Screening [facility] Start: 06-23-2027 Diabetes Screening Diabetes Screening [facility] Start: 06-05-2027 Diabetes Screening Diabetes Screening [facility] Start: 05-14-2027 Diabetes Screening Diabetes Screening [facility] Start: 2027 Diabetes Screening Diabetes Screening [facility] Start: 04-02-2027 Diabetes Screening Diabetes Screening [facility] Start: 03-11-2027 Diabetes Screening Diabetes Screening [facility] Start: 02-19-2027 Diabetes Screening Diabetes Screening [facility] Start: 01-29-2027 Diabetes Screening Diabetes Screening [facility] Start: 12-15-2026 Diabetes Screening Diabetes Screening [facility] Start: 12-05-2026 Diabetes Screening Diabetes Screening [facility] Start: 12-02-2026 Diabetes Screening Diabetes Screening [facility] Start: 05-14-2025 BP Controlled (<130/80) BP Controlled (<130/80) [facility] Start: 04-02-2025 BP Controlled (<130/80) BP Controlled (<130/80) [facility] Start: 02-19-2025 BP Controlled (<130/80) BP Controlled (<130/80) [facility] Start: 01-29-2025 BP Controlled (<130/80) BP Controlled (<130/80) [facility] Start: 01-04-2025 BP Controlled (<130/80) BP Controlled (<130/80) [facility] Start: 12-25-2024 BP Controlled (<130/80) BP Controlled (<130/80) [facility] Start: 12-15-2024 BP Controlled (<130/80) BP Controlled (<130/80) [facility] Start: 11-29-2024 Influenza vaccination Influenza Vaccine (#1) [facility] Start: 11-11-2024 Hospital admission, emergency, from emergency room, medical nature [facility] Start: 11-11-2024 Verification routine [facility] Start: 11-11-2024 Admission procedure [facility] Start: 11-10-2024 [facility] Start: 11-10-2024 End: 11-10-2024 [facility] Start: 11-10-2024 Bacteria identified in Blood by Culture Blood Culture [facility] Start: 11-09-2024 End: 02-07-2025 CBC panel - Blood by Automated count COMPLETE BLOOD COUNT Lab Routine Gallbladder cancer (HCC) Expected: 11/09/2024, Expires: 02/07/2025 [facility] Work Phone: Comment on above: Expected: 11/09/2024, Expires: Start: 11-09-2024 End: 02-07-2025 Comprehensive metabolic 2000 panel - Serum or Plasma COMPREHENSIVE METABOLIC PANEL Lab Routine Gallbladder cancer (HCC) Expected: 11/09/2024, Expires: 02/07/2025 [facility] Comment on above: Expected: 11/09/2024, Expires: 5 Start: 11-09-2024 End: 11-09-2024 Patient encounter procedure 11/09/2024 9:30 AM EDT Appointment [address] [address] Stacy Santamaria MD [address] [place], [place] [id number] ERCP w/possible stent placement, pt not on any blood thinners or diabetic meds to stop [facility] Comment on above: ERCP w/possible stent placement, pt not on any blood thinners or diabetic meds to stop Start: 11-02-2024 End: 11-02-2024 ambulatory 11/02/2024 10:40 AM EDT PAT Pre Surgical Testing [address] [facility] [address] ERCP schedule for 11/09 9:[address]am [address] Dr Santamaria Pre Surgical Testing Comment on above: ERCP schedule for 11/09 9:[address]am [address] Dr Lazaro dodge Start: 10-25-2024 End: 10-25-2024 ambulatory 10/25/2024 8:15 AM EDT Results Only [facility] [address] [place] [address] [facility] Start: 10-22-2024 End: 01-21-2025 CBC W Auto Differential panel - Blood COMPLETE BLOOD COUNT AND DIFFERENTIAL Lab STAT Gallbladder cancer (HCC) Expected: 10/22/2024, Expires: 01/21/2025 [facility] Work Phone: Comment on above: Expected: 10/22/2024, Expires: Start: 10-22-2024 End: 01-21-2025 Comprehensive metabolic 2000 panel - Serum or Plasma COMPREHENSIVE METABOLIC PANEL Lab Routine Gallbladder cancer (HCC) Expected: 10/22/2024, Expires: 01/21/2025 [facility] Comment on above: Expected: 10/22/2024, Expires: Start: 10-20-2024 End: 10-20-2024 ambulatory [facility] Comment on above: CBC/CMP(S)* 3MO OV* CT 10/13 / CB C/ CMP EARLY* Start: 10-13-2024 End: 01-12-2025 Creatinine and Glomerular filtration rate.predicted panel - Serum, Plasma or Blood CREATININE BLD Lab Routine Cholangiocarcinoma (HCC) Expected: 10/13/2024, Expires: 01/12/2025 [facility] Work Phone: Comment on above: Expected: 10/13/2024, Expires: Start: 10-13-2024 End: 10-13-2024 ambulatory 10/13/2024 8:00 AM EDT Results Only [facility] [address] [place] [address] STAT LABS [facility] Comment on above: STAT LABS Start: 10-13-2024 End: 10-13-2024 Patient encounter procedure Cat Scan Comment on above: : 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] Start: 07-14-2024 End: 07-14-2024 ambulatory [facility] Comment on above: CBC/CMP(S) F/U OV* CT RESULTS / CBC/ CMP EARLIER / PER DENICE Start: 07-14-2024 End: 07-14-2024 Specialty Pharmacy 07/14/2024 7:45 AM EDT Specialty Pharmacy [facility] [address] [place] [address] Pharmacist, [facility] [address] [place] [address] [place] [phone] Refill - Capecitabine [21DS] C04/ - utr 07/12 [facility] Comment on above: Refill - Capecitabine [21DS] C0421 - ut r 07/12 Start: 07-12-2024 End: 07-12-2024 Specialty Pharmacy 07/12/2024 8:15 AM EDT Specialty Pharmacy [facility] [address] [place] [address] Pharmacist, [facility] [address] [place] [address] [place] [address] Refill - Capecitabine [21DS] C007/19 [facility] Comment on above: Refill - Capecitabine [21DS] C007/19 Start: 07-07-2024 End: 07-07-2024 Patient encounter procedure Cat Scan Comment on above: CT ABD / PEL / CHEST Start: 07-05-2024 End: 10-04-2024 CREATININE BLD CREATININE BLD Lab Routine Gallbladder cancer (HCC) Expected: 07/05/2024, Expires: 10/04/2024 [facility] Comment on above: Expected: 07/05/2024, Expires: Start: 07-05-2024 End: 07-22-2025 CT Abdomen and Pelvis W contrast IV CT ABD/PEL W IVCON Radiology Routine Gallbladder cancer (HCC) Expected: 07/05/2024, Expires: 07/22/2025 [facility] Work Phone: Comment on above: Expected: 07/05/2024, Expires: Start: 07-05-2024 End: 07-22-2025 CT Chest W contrast IV CT CHEST W IVCON Radiology Routine Gallbladder cancer (HCC) Expected: 07/05/2024, Expires: 07/22/2025 [facility] Comment on above: Expected: 07/05/2024, Expires: Start: 06-22-2024 End: 06-22-2024 ambulatory Bridget Garcia [facility] Laboratory Comment on above: CBC/CMP OV/LAB EARLY* CBC/CMP(S) Start: 06-21-2024 End: 06-21-2024 Specialty Pharmacy 06/21/2024 8:00 AM EDT Specialty Pharmacy [facility] [address] [place] [id number]-[id number] [place] [address] Pharmacist, [facility] [address] [place] [address] Refill - Capecitabine [21DS] [facility] Comment on above: Refill - Capecitabine [21DS] Start: 06-14-2024 End: 06-14-2024 Patient encounter procedure 06/14/2024 9:30 AM EDT Appointment Radiology [address] [place] [address] 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) [E27.8] Radiology Comment on above: 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] Start: 06-08-2024 End: 06-08-2024 Patient encounter procedure 06/08/2024 10:30 AM EDT Office Visit OB/Gynecology [address] [place] [address] Taty Velazquez, GRADES 9 12 TUTOR.CEREAL MAKER [address] [place] [address] Pelvic Cyst-U/S done 04/26/24 OB/Gynecology Comment on above: Pelvic Cyst-U/S done 04/26/24 Start: 06-04-2024 End: 06-04-2024 Follow-up encounter 06/04/2024 8:30 AM EST Visit (SP) Office Hematology/Oncology [address] [place] [address] Denice Orozco, GRADES 9 12 TUTOR.CEREAL MAKER [address] [place] [address] follow up Hematology/Oncolo gy Comment on above: follow up Start: 06-04-2024 End: 06-04-2024 ambulatory Bridgetprudencio Brownwn [facility] Laboratory Comment on above: CBC/CMP* OV/EARLY LABS* Start: 05-31-2024 End: 05-31-2024 Specialty Pharmacy 05/31/2024 7:45 AM EST Specialty Pharmacy [facility] [address] [place] [address] Pharmacist, [facility] [address] [place] [address] [place] [address] Refill - Capecitabine [21DS] C03/10 [facility] Comment on above: Refill - Capecitabine [21DS] C03/10 Start: 05-14-2024 End: 05-14-2024 ambulatory Hematology/Oncolo gy Comment on above: f/up Feb. with CBC/CMP. CBC/CMP(S) f/up b. with CBC/C MP(S). Start: 05-13-2024 End: 05-13-2024 Specialty Pharmacy 05/13/2024 7:30 AM EST Specialty Pharmacy [facility] [email or web address] [address] [address] Pharmacist, [facility] [address] [place] [address] [place] [address] Refill - Capecitabine [21DS] C02/17 --- refill req 05/10 [facility] Comment on above: Refill - Capecitabine [21DS] C02/17 --- refill req 05/10 Start: 05-10-2024 End: 05-10-2024 [facility]ty [facility]acy [facility] Comment on above: Refill - Capecitabine [21DS] C02/17 Refill - Capecitabin e [21DS] C02/17 --- [...] (SP) Office Hematology/Oncology [address] [place] [address] Denice Orozco APRN.CEREAL MAKER [address] [place] [address] follow up Hematology/Oncolo gy Comment on above: follow up Start: 2024 End: 2024 ambulatory 2024 8:15 AM EST Results Only Bridget Brownwn [facility] Laboratory [address] [place] [address] CBC /CMPS (S) [facility] Comment on above: CBC /CMPS (S) Start: 04-20-2024 End: 04-20-2024 Specialty Pharmacy 04/20/2024 7:45 AM EST Specialty Pharmacy [facility] [address] [place] [address] Pharmacist, [facility] [address] [place] [address] [place] [address] Refill - Capecitabine [21DS] [facility] Comment on above: Refill - Capecitabine [21DS] C004/26 Start: 04-19-2024 End: 05-02-2025 CT Abdomen and Pelvis W contrast IV [facility] Work Phone: Comment on above: Expected: 04/19/2024 (Approximate), Expi res: 05/02/2025 Start: 04-19-2024 End: 04-19-2024 Patient encounter procedure Cat Scan Comment on above: CT ABD / PEL / CHEST Start: 04-19-2024 End: 04-19-2024 Specialty Pharmacy 04/19/2024 7:30 AM EST Specialty Pharmacy [facility] [address] [place] [address] Pharmacist, [facility] [address] [place] [address] [place] [address] Refill - Capecitabine [21DS] [facility] Specialty Pharmacy Comment on above: Refill - Capecitabine [21DS] Start: 04-02-2024 End: 04-02-2024 Follow-up encounter 04/02/2024 8:00 AM EST Visit (SP) Office Hematology/Oncology [address] [place] [address] Denice Orozco APRN.CEREAL MAKER [address] [place] [address] follow up Hematology/Oncolo gy Comment on above: follow up Start: 03-31-2024 Advance Directive Discussion Advance Directive Discussion [facility] Start: 03-29-2024 End: 03-29-2024 Specialty Pharmacy 03/29/2024 7:45 AM EST Specialty Pharmacy [facility] [address] [place] [address] Pharmacist, [facility] [address] [place] [address] [place] [address] Refill - Capecitabine. 21DS. C1 [facility] Comment on above: Refill - Capecitabine. 21DS. C1 Start: 03-11-2024 End: 03-11-2024 ambulatory [facility] Comment on above: CBC/CMP 3 WK OV *CBC/CMP Start: 03-08-2024 End: 03-08-2024 Specialty Pharmacy 03/08/2024 7:30 AM EST Specialty Pharmacy [facility] Special[facility] Pharm[facility] [address] [place], [place] [phone] Pharmacist, [facility] [address] [place] [address] [place] [address] Refill - Capecitabine. 21DS. [facility] Comment on above: Refill - Capecitabine. 21DS. Start: 02-20-2024 End: 02-20-2024 [facility] Laboratory Comment on above: CBC/CMP 3 WK OV *CBC/CMP Start: 02-17-2024 End: 02-17-2024 Specialty Pharmacy 02/17/2024 7:15 AM EST [facility]ty [facility]acy [facility] [address] [place] [address] Pharmacist, [facility] [address] [place] [address] [place] [address] Refill - Capecitabine. 21DS. Ok to send after labs? [facility] Comment on above: Refill - Capecitabine. 21DS. Ok to send after labs? Start: 01-30-2024 End: 01-30-2024 [facility] Laboratory Comment on above: CBC/CMP* CBC/CMP/OV/ON XELODA * Start: 01-26-2024 End: 01-26-2024 Specialty Pharmacy 01/26/2024 9:00 AM EDT Specialty Pharmacy [facility] [address] [place], [place] [phone] Pharmacist, [facility] [address] [place] [address] [place] [address] Refill - Capecitabine. 21DS. Ok to send after labs? [facility] Comment on above: Refill - Capecitabine. 21DS. Ok to send after labs? Start: 12-26-2023 End: 12-26-2023 Patient encounter procedure 12/26/2023 9:50 AM EDT Office Visit [facility] 1 [facility] [address] [place], [place] [phone] Mikala Jones MD [address] [phone] Drain removal [facility] Comment on above: Drain removal Start: 12-16-2023 End: 03-16-2024 [id number] GENOTYPING PANEL [facility] Work Phone: Comment on above: Expected: 12/16/2023, Expires: Start: 11-30-2023 Covid-19 Vaccine ( season) Covid-19 Vaccine ( season) [facility] Start: 11-30-2023 Covid-19 Vaccine ( season) Covid-19 Vaccine ( season) [facility] Start: 11-30-2023 Influenza vaccination Influenza Vaccine (#1) [facility] Start: 03-31-2023 Advance Directive Discussion Advance Directive Discussion [facility] Start: 03-31-2022 ADVANCE DIRECTIVE DISCUSSION ADVANCE DIRECTIVE DISCUSSION [facility] Start: 03-31-2022 DEPRESSION ASSESSMENT DEPRESSION ASSESSMENT [facility] Start: 06-30-2021 COVID-19 VACCINE (4 - Booster for Moderna series) COVID-19 VACCINE (4 - Booster for Moderna series) [facility] Start: 04-26-2021 COVID-19 VACCINE (4 - Booster for Moderna series) COVID-19 VACCINE (4 - Booster for Moderna series) [facility] Start: 01-01-2022 ADVANCE DIRECTIVE DISCUSSION ADVANCE DIRECTIVE DISCUSSION [facility] Start: 2020 RSV Vaccine (1 - 1-dose 75+ series) RSV Vaccine (1 - 1-dose 75+ series) [facility] Start: 10-18-2017 Pneumococcal Vaccine: 50+ (2 of 2 - PCV) Pneumococcal Vaccine: 50+ (2 of 2 - PCV) [facility] Start: 10-18-2017 Pneumococcal Vaccine: 65+ (2 of 2 - PCV) Pneumococcal Vaccine: 65+ (2 of 2 - PCV) [facility] Start: 2010 BONE DENSITY BONE DENSITY [facility] Start: 2010 PNEUMOCOCCAL: 65+ (1 - PCV) PNEUMOCOCCAL: 65+ (1 - PCV) [facility] Start: 2010 PNEUMOVAX AGE 65 AND OVER WITH 5YR LOOKBACK (#1) PNEUMOVAX AGE 65 AND OVER WITH 5YR LOOKBACK (#1) [facility] Start: 2010 Screening for osteoporosis Bone Density Screening [facility] Start: 03-31-2010 Medicare Annual Wellness Visit Medicare Annual Wellness Visit [facility] Start: 2005 RSV Vaccine (1 - 1-dose 60+ series) RSV Vaccine (1 - 1-dose 60+ series) [facility] Start: 1995 SHINGRIX VACCINE (1 of 2) SHINGRIX VACCINE (1 of 2) [facility] Start: 1990 DIABETES SCREEN DIABETES SCREEN [facility] Start: 1964 Shingrix Vaccine (1 of 2) Shingrix Vaccine (1 of 2) [facility] Start: 1964 Urine microalbumin profile [facility] shree Start: 1963 ANNUAL PCP TEAM CHRONIC DISEASE VISIT ANNUAL PCP TEAM CHRONIC DISEASE VISIT [facility] Start: 1963 Anxiety Screening Anxiety Screening [facility] Start: 1963 BP CONTROLLED (<130/80) BP CONTROLLED (<130/80) [facility] Start: 1963 Depression Screening Depression Screening [facility] Start: 1963 HEPATITIS C SCREENING HEPATITIS C SCREENING [facility] Start: 1963 Hepatitis C screening Hepatitis C Screening [facility] Start: 1957 Adult depression screening assessment DEPRESSION SCREENING [facility] Start: 1956 Screening for malignant neoplasm of cervix Cervical Cancer Screening [facility] CT Abdomen and Pelvi s W contrast IV CT ABD/PEL W IVCON Radiology Routine Gallbladder cancer (HCC) 07/07/2024 9:52 AM EDT [facility] Work Phone: End: 08-13-2025 CT Abdomen and Pelvis W contrast IV CT ABD/PEL W IVCON Radiology Routine Cholangiocarcinoma (HCC) 1 Occurrences starting 07/14/2024 until 08/13/2025 [facility] Comment on above: 1 Occurrences starting 07/14/2024 until 08/13/2025 CT Abdomen and Pelvi s W contrast IV CT ABD/PEL W IVCON Radiology Routine Cholangiocarcinoma (HCC) 10/13/2024 9:34 AM EDT [facility] End: 05-02-2025 CT Chest W contrast IV CT CHEST W IVCON Radiology Routine Gallbladder cancer (HCC) 1 Occurrences starting 04/02/2024 until 05/02/2025 [facility] Comment on above: 1 Occurrences starting 04/02/2024 until 05/02/2025 CT Chest W contrast IV CT CHEST W IVCON Radiology Routine Gallbladder cancer (HCC) 04/19/2024 11:01 AM EST [facility] CT Chest W contrast IV CT CHEST W IVCON Radiology Routine Gallbladder cancer (HCC) 07/07/2024 9:52 AM EDT [facility] End: 08-13-2025 CT Chest W contrast IV CT CHEST W IVCON Radiology Routine Cholangiocarcinoma (HCC) 1 Occurrences starting 07/14/2024 until 08/13/2025 [facility] Work Phone: Comment on above: 1 Occurrences starting 07/14/2024 until 08/13/2025 CT Chest W contrast IV CT CHEST W IVCON Radiology Routine Cholangiocarcinoma (HCC) 10/13/2024 9:34 AM EDT [facility] Work Phone: End: 10-26-2025 ERCP ERCP Endoscopy Routine Choledocholithiasis 1 Occurrences starting 10/26/2024 until 10/26/2025 [facility] Work Phone: Comment on above: 1 Occurrences starting 10/26/2024 until 10/26/2025 End: 07-08-2025 MR Pelvis WO and W contrast IV MRI FEMALE PELVIS WO/W IVCON Radiology Routine 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) 1 Occurrences starting 06/08/2024 until 07/08/2025 [facility] Work Phone: Comment on above: 1 Occurrences starting 06/08/2024 until 07/08/2025 MR Pelvis WO and W contrast IV MRI FEMALE PELVIS WO/W IVCON Radiology Routine 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) 06/14/2024 11:07 AM EDT [facility] Work Phone: End: 05-23-2025 US Pelvis limited US FEMALE PELVIS TRANSABD LTD Radiology Routine Gallbladder cancer (HCC) Pelvic cyst in female Abnormal CT scan, pelvis 1 Occurrences starting 2024 until 05/23/2025 [facility] Work Phone: Comment on above: 1 Occurrences starting 2024 until 05/23/2025 US Pelvis limited US FEMALE PELV IS TRANSABD LTD Radiology Routine Gallbladder cancer (HCC) Pelvic cyst in female Abnormal CT scan, pelvis 04/26/2024 11:32 AM EST [facility] Work Phone: End: 05-23-2025 US Pelvis transvaginal US FEMALE PELVIS TRANSVAG Radiology Routine Gallbladder cancer (HCC) Pelvic cyst in female Abnormal CT scan, pelvis 1 Occurrences starting 2024 until 05/23/2025 [facility] Comment on above: 1 Occurrences starting 2024 until 05/23/2025 US Pelvis transvaginal US FEMALE PELVIS TRANSVAG Radiology Routine Gallbladder cancer (HCC) Pelvic cyst in female Abnormal CT scan, pelvis 04/26/2024 11:32 AM EST [facility] Immunizations Immunization Date Immunization Notes Care Provider Fa cility 01-30-2024 influenza virus vacc ine, unspecified formulation Tin Jose DO Work Phone: [facility] 12-31-2022 influenza (aIIV4) vaccine, age 65+ yr, quadrivalent, PF (FLUAD QUAD) Tin Jose DO Work Phone: [facility] 12-31-2022 influenza virus vacc ine, unspecified formulation Mikala Jones MD Work Phone: [facility] 01-10-2022 influenza, injectabl e, quadrivalent, preservative free Tin Masci DO Work Phone: [facility] 01-02-2021 influenza, injectabl e, quadrivalent, preservative free Tin Masci DO Work Phone: [facility] 12-30-2019 influenza, injectabl e, quadrivalent, preservative free Tin Masci DO Work Phone: [facility] 12-30-2018 influenza, injectabl e, quadrivalent, preservative free Tin Masci DO Work Phone: [facility] 12-30-2017 influenza, injectabl e, quadrivalent, preservative free Tin Masci DO Work Phone: [facility] 01-01-2017 influenza, injectabl e, quadrivalent, preservative free Tin Masci DO Work Phone: [facility] 10-18-2016 pneumococcal polysaccharide vaccine, 23 valent Tin Dinorai DO Work Phone: [facility] 01-10-2016 influenza, injectabl e, quadrivalent, contains preservative Tin Masci DO Work Phone: [facility] 01-24-2009 influenza virus vacc ine, whole virus Tin Dinorai DO Work Phone: [facility] Payers Date Payer Category Payer Self-pay [address] [facility] BENEFIT FUND [facility] SUPPLE[facility] [id number] 2016-Present [phone] [address] [place] [address] Medicare [id number] 2010 Medicare MEDICARE MEDICAR E A AND B [id number] 2010-Present [phone] [address] [address] [place] [address] Medicare [id number] 2010 Medicare [id number] 2001 Medicare [id number] 2001 Private Health Insurance [id number] 2001 Unknown [id number] 1945 Unknown [id number] .356 1945 Unknown [id number] .903 1945 Unknown [id number] .902 1945 Unknown [id number] [id number] .1069 Medicare [id number] Unknown [id number] Unknown [id number] .462 Unknown [id number] .[id number] .462 Unknown [id number] [id number] .462 Unknown [id number] 2.840.1.142185.3.579.2 .462 Unknown [id number] .[id number] .462 Unknown [id number] .840.1.026178.3.579.2 .462 Unknown [id number] 2.840.1.190062.3.579.2 .462 Unknown [id number] 2.840.1.893959.3.579.2 .462 Unknown [id number] 2.840.1.111108.3.579.2 .462 Unknown [id number] .462 Social History Date Type Detail Facility Start: 08-07-2021 End: 11-10-2024 Tobacco smoking status NHIS Never smoked tobacco [facility] Start: 08-07-2021 End: 11-02-2024 Tobacco use and exposure Smokeless tobacco non-user [facility] Start: 1945 Sex Assigned At Not on file [facility] Start: 07-28-2021 End: 09-07-2021 Exposure to SARS-CoV-2 (event) Not sure [facility] Start: 11-20-2023 End: 12-26-2023 History of Social function [facility] Start: 11-20-2023 End: 12-26-2023 [facility] Utilities [facility] Has the Let, [employer], oil, or water company threatened to shut off services in your home in past 12Mo No [facility] (I/We) worried samuel er (my/our) food would run out before (I/we) got money to buy more. Never true [facility] Start: 08-01-2021 In the past 12 months, has lack of transportation kept you from medical appointments or from getting medications? No [facility] Start: 01-05-2024 End: 11-09-2024 Alcoholic beverage intake Lifetime non-drinker (finding) [facility] Start: 11-27-2017 Non-smoker Non-smoker [facility] Start: 06-16-2024 Sex Female (finding) [facility] Start: 1945 Sex Assigned At Female [facility] Start: 10-21-2024 Sexual orientation Heterosexual (finding) [facility] How often to you hav e a drink containing alcohol? Never [facility] Medical Equipment Procedure Code Equipment Code Equipment Origin al Text Equipment Identifier Dates Lens Acrysof Iq +16 Diopter 0 D Biconvex Acrylic 13mm Iol 1 Piece Foldable - [id number] Start: 09-07-2021 Stent Advanix Naviflex 10fr [place] Thin Wall Plastic 9cm Biliary - [id number] Start: 11-25-2023 Stent Advanix Naviflex 5fr Straight Plastic 3cm Pancreatic Kit Rapid - [id number] Start: 11-25-2023 Stent Advanix Naviflex 10fr [place] Thin Wall Plastic 12cm Biliary - [id number] Start: 11-09-2024 Functional Status Date Assessment Result Facility 11-09-2024 Total score [AUDIT-C] 0 11/10/19 8:35 AM EDT Barbra Gunn RN [facility] 12-06-2023 Are you deaf, or do you have serious difficulty hearing No 12/06/2023 10:29 AM EDT Tere Webber RN No [facility] 12-06-2023 Are you blind, or do you have serious difficulty seeing, even when wearing glasses No 12/06/2023 10:29 AM EDT Tere Webber RN No [facility] 12-06-2023 Do you have serious difficulty walking or climbing stairs No 12/06/2023 10:29 AM EDT Tere Webber RN No [facility] 12-06-2023 Do you have difficul ty dressing or bathing No 12/06/2023 10:29 AM EDT Tere Webber RN No [facility] 12-06-2023 Because of a physica l, mental, or emotional condition, do you have difficulty doing errands alone such as visiting a physician's office or shopping No 12/06/2023 10:29 AM EDT Tere Webber RN No [facility] Cl[facility] c Mental Status Date Assessment Result Facility 12-06-2023 Because of a physica l, mental, or emotional condition, do you have serious difficulty concentrating, remembering, or making decisions No 12/06/2023 10:29 AM EDT Tere Webber RN No [facility] Clinical Notes 08-07-2021 to 11-11-2024 Note Date & Type Note Facility 11-11-2024 Discharge summary [facility] 11-10-2024 Radiology Diagnostic study note [facility] Imaging Services [address] [place] [address] Chest PA and Lateral MR#: [id number] Acct: [id number] Name: MARIE BLAIR Rep #: [id number] : 1945 F 79 From: Sylvain Vaughn MD PCP: Dr. Joe Tim MD Status: REG ER Study:Chest PA and Lateral Date of Exam: 11/10/24 Exam# [id number] Ordering Dr: Jostin Sullivan MD PROCEDURE: CHEST PA AND LATERAL 11/10/2024 REASON FOR EXAM: CHEST PAIN TECHNIQUE: CHEST PA AND LATERAL COMPARISON: None available. FINDINGS: Hardware: None. Heart: The heart size is normal. Mediastinum: The mediastinal contour is unremarkable. Lungs: The lungs are clear. Bones: The bones are unremarkable. RAD/Chest PA and Lateral IMPRESSION: NO ACUTE FINDINGS. Reading Location: [facility] CC: Dr. Joe Tim MD; Dr. Janet Sullivan MD ~ It Senior Analyst: Signed [facility] 11-10-2024 Radiology Diagnostic study note [facility] Imaging Services [address] [place], [place] [id number] Abdomen/Pelvis W IV Cont ONLY MR#: [id number] Acct: [id number] Name: MARIE BLAIR Rep #: [id number] : 1945 F 79 From: Sylvain Vaughn MD PCP: Dr. Joe Tim MD Status: REG ER Study:Abdomen/Pelvis W IV Cont ONLY Date of E xam: 11/10/24 Exam# [id number] Ordering Dr: Jostin Sullivan MD PROCEDURE: ABDOMEN/PELVIS W IV CONT ONLY 11/10/2024 REASON FOR EXAM: ABDOMINAL PAIN POST ERCP YESTERDAY TECHNIQUE: ABDOMEN/PELVIS W IV CONT ONLY Coronal and Sagittal reconstruction series were provided. CONTRAST: 100 cc of Isovue 370 intravenous contrast. One or more dose reduction techniques were used (e.g., Automated exposure control, adjustment of the mA and/or kV according to patient size, use of iterative reconstruction technique. RADIATION DOSE SUMMARY: CTDlvol: 20 mGy DLP: 751 mGycm COMPARISON: ERCP 02/10/2024, CT abdomen and pelvis 11/11/2023 FINDINGS: Lung bases: Unremarkable. Liver: Normal size. No mass. Moderate dilatation of multiple intrahepatic bile ducts, increased from prior. Interval biliary stent placement and pneumobilia, likely postprocedural. Gallbladder: Surgically absent. Spleen: Normal size. Pancreas: Normal size without evidence of mass surrounding inflammation or ductal dilation. Adrenals: Unremarkable. Kidneys: Normal renal sizes. No hydronephrosis. Bladder: Unremarkable. Reproductive Organs: Unremarkable uterus. Large cystic lesion abutting and superior to the uterine fundus measuring 9.6 x 10.9 x 9.2 cm. Bowel: Colonic diverticulosis without diverticulitis. No bowel obstruction. Appendix: The appendix is not identified. There is no inflammatory process identified in the right lower quadrant to suggest appendicitis. Lymph nodes: Unremarkable. Vasculature: Atherosclerotic calcifications of the abdominal aorta and its branches. No aneurysm. Peritoneum / Retroperitoneum: No free fluid or air. Bones: Degenerative changes of the spine. No acute fractures. CT/Abdomen/Pelvis W IV Cont ONLY IMPRESSION: 1. Recent ERCP with interval placement of biliary stent and associated pneumobilia. Increased moderate dilatation of multiple intrahepatic bile ducts. 2. Large cystic lesion abutting and superior to the uterine fundus measuring 9.6x 10.9 x 9.2 cm. Etiology is unclear but may originate from the left ovary/adnexa. Reading Location: [facility] CC: Dr. Joe Tim MD; Dr. Janet Sullivan MD ~ It Senior Analyst: Signed [facility] 11-10-2024 Discharge summary Note Date/Time November 11, 2024 3:05am [facility] Medical Records Department [address] [place] [id number] Emergency Department Summary 11/10/24 MR#: [id number] Acct: [id number] Name: MARIE BLAIR Rep #:[id number] : 1945 79 From: Janet Sullivan MD PCP: Dr. Joe Tim MD Status:[facility] ER Location: ED HPI HPI - GI History of Present Illness Chief Complaint: Abd Pain Narrative Narrative: Patient is a 79-year-old female presenting emergency department for abdominal pain and nausea. 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 She is not on any current chemo or radiation. She did have a cholecystectomy in the past. [facility] for jaundice and elevated liver enzymes. Patient states that afterwards she was having some nausea which she receivedmedication for and that was discharged home around 2 PM. States she was having some generalized abdominal pain yesterday but then today around noon she developed worsening abdominal pain. States its mainly located on the left side. Endorses nausea with no vomiting. Denies chest pain or shortness of breath. Denies known fever or chills. States she has a headache across the front of herforehead, started around the same time as the abdominal pain. Describes it as a pressure. Did not start suddenly. No weakness or numbness in her extremities, novisual changes. Similar to headaches in the past. [facility] Medical History Wears hearing aid Loss of hearing Wears glasses Wears partial dentures Wears dentures Cancer High cholesterol History of TIA (transient ischemic attack) Squamous cell carcinoma in situ Atherosclerosis of both carotid arteries Pure hypercholesterolemia Benign essential HTN Home Medications ?Medication ?Instructions ?Recorded ?Last Taken ?Type lisinopril 20 mg tablet 10 mg PO DAILY BLOOD PRESSUR E 11/14/17 11/10/24 History Allergy/AdvReac Type Severity Reaction Status Date / Time No Known Allergies Allergy Verified 11/10/24 17:08 Family History Mother CVA (cerebral vascular accident) Hypertension Father CAD (coronary artery disease) Hypertension Heart disease Myocardial infarction Surgical History History of cholecystectomy S/P appendectomy History of squamous cell carcinoma excision Social History household members: spouse Smoking Status: Never smoker alcohol intake: never substance use type: does not use additional social history: DOES USE ASPIRIN DOES NOT USE IBUPROFEN ROS ROS ED ROS Narrative see HPI EXAM Physical Exam Narrative Exam Narrative: Vital signs: Reviewed General: Alert and oriented. No acute distress. Chronically ill appearing. HEENT: Head is normocephalic and atraumatic, sinuses nontender, pupils equal round and reactive. Scleral icterus. nares are patent. Oropharynx and throat exams normal. Neck: Supple without lymphadenopathy nontender Cardiovascular: Tachycardic and regular rhythm, no murmurs. No rubs or gallops. Normal S1 and S2 Respiratory: Clear to auscultation bilaterally. No wheezes, rales, rhonchi Abdominal: Soft and tender to palpation in the epigastric, left upper quadrant and suprapubic. Normal bowel sounds. No guarding or rebound. Extremities: No tenderness. No bruising. Normal range of motion. Normal sensation. Skin: No rash or redness. Jaundiced. Neurological: Cranial nerves II through XII are grossly intact. Normal strengthand sensation. Normal cerebellar function The rest of the physical exam is unremarkable Const Vital Signs: 11/10/24 17:08 11/10/24 17:12 11/10/24 19:00 Temperature 98.7 F 98.7 F 98.3 F Temperature Source Oral Oral Oral Pulse Rate 127 H 133 H 89 Respiratory Rate 23 H 23 H 22 H Blood Pressure 139/78 H 139/78 H 111/50 L Blood Pressure Mean 98 98 70 Pulse Ox 96 94 99 Oxygen Delivery Method Room Air Room Air Room Air Oxygen Flow Rate (L/min) 11/10/24 19:02 11/10/24 20:00 11/10/24 21:00 Temperature 98.2 F 97.8 F Temperature Source Oral Oral Pulse Rate 89 86 90 Respiratory Rate 24 H 23 H Blood Pressure 111/50 L 101/58 L 108/51 L Blood Pressure Mean 70 72 70 Pulse Ox 97 99 97 Oxygen Delivery Method Room Air Nasal Cannula Nasal Cannula Oxygen Flow Rate (L/min) 2 11/10/24 21:30 Temperature Temperature Source Pulse Rate 93 Respiratory Rate Blood Pressure 105/53 L Blood Pressure Mean 70 Pulse Ox 97 Oxygen Delivery Method Oxygen Flow Rate (L/min) MDM MDM MDM Narrative Medical decision making narrative: Patient is a 79-year-old female presenting to the emergency department for abdominal pain, nausea. Patient was seen and examined. She arrives tachycardicat 127 with stable BP of 139/78. She is afebrile. Fluid bolus started for tachycardia, patient given morphine and Zofran for symptomatic control. Differential includes but is not limited to: Occlusion of stent, perforation post procedure, pancreatitis, pneumonia? post procedural aspiration?, UTI CBC with no leukocytosis and a hemoglobin of 11.1. CMP with elevated total bilirubin of 8.79 and transaminitis. Elevated lactate of 3.3. Blood cultures x2 obtained. Given the patient's initial vitals and elevated lactate, patient given Zosyn. Urinalysis with possible UTI with nitrates and leukoesterase as well as bacteria. CT abdomen shows recent ERCP with interval placement of a biliary stent and associated pneumobilia with increased dilatation of multiple intra hepatic bile ducts. Given the possible sepsis, CXR was added on to rule out postprocedural aspiration pneumonia, this was negative for any acute findings. EKG with sinus tachycardia and occasional PVCs. There is some nonspecific ST abnormalities likely due to demand due to the high heart rate. Idid discuss the patient with on-call GI, Dr[facility] Oden, [facility] given concern for possible reocclusion of stent. I spoke to transfer center and then Dr. Pleitez who accepted the patient for transfer. I was notified that it will likely be a few days before transfer will happen. Recommended admission here to hospitalist in the mean time. Impression: 1. Abdominal pain 2. possible sepsis 3. Elevated lactate 4. Elevated total bilirubin 5. Transaminitis History & Record Review Discussion w/independent historian: Patient and Family Additional record(s) reviewed:: Prior inpatient record Lab Data Attestation: I reviewed the patient's lab results. Labs: Laboratory Results - last 24 hr 11/10/24 11/10/24 11/10/24 17:23 17:23 17:23 WBC 5.6 RBC 3.63 L Hgb 11.1 L Hct 33.8 L MCV 93.1 MCH 30.6 MCHC 32.8 RDW Std Deviation 59.0 H RDW Coeff of Adelfo 17.2 H Plt Count 232 MPV 12.3 H Immature Gran % (Auto) 0.400 Neut % (Auto) 95.5 H Lymph % (Auto) 2.3 L Gregory % (Auto) 1.6 Eos % (Auto) 0.0 Baso % (Auto) 0.2 Absolute Neuts (auto) 5.3 Absolute Lymphs (auto) 0.13 L Nucleated RBC % 0 Differential Comment SCANNED Platelet Estimate ADEQUATE Sodium 137 Potassium 3.6 Chloride 102 Carbon Dioxide 20.5 L Anion Gap 15 BUN 16 Creatinine 0.82 Estim Creat Clear Calc 56.12 Est GFR (MDRD) Non-Af 73 BUN/Creatinine Ratio 19.3 Glucose 101 H Lactic Acid Calcium 9.2 Total Bilirubin 8.75 H 8.79 H Direct Bilirubin 6.51 H AST 76 H 76 H ALT 58 H Alkaline Phosphatase Troponin T High Sens Total Protein Albumin Globulin Albumin/Globulin Ratio Lipase Urine Color Urine Clarity Urine pH Ur Specific [place] Urine Protein Urine Glucose (UA) Urine Ketones Urine Occult Blood Urine Nitrite Urine Bilirubin Urine Urobilinogen Ur Leukocyte Esterase Urine RBC Urine WBC Ur Squamous Epith Cells Urine Bacteria Urine Mucus 11/10/24 11/10/24 11/10/24 17:23 17:23 17:23 WBC RBC Hgb Hct MCV MCH MCHC RDW Std Deviation RDW Coeff of Adelfo Plt Count MPV Immature Gran % (Auto) Neut % (Auto) Lymph % (Auto) Gregory % (Auto) Eos % (Auto) Baso % (Auto) Absolute Neuts (auto) Absolute Lymphs (auto) Nucleated RBC % Differential Comment Platelet Estimate Sodium Potassium Chloride Carbon Dioxide Anion Gap BUN Creatinine Estim Creat Clear Calc Est GFR (MDRD) Non-Af BUN/Creatinine Ratio Glucose Lactic Acid Calcium Total Bilirubin Direct Bilirubin AST ALT 58 H Alkaline Phosphatase 344 H 343 H Troponin T High Sens Total Protein 6.2 6.2 Albumin 3.3 L Globulin Albumin/Globulin Ratio Lipase Urine Color Urine Clarity Urine pH Ur Specific [place] Urine Protein Urine Glucose (UA) Urine Ketones Urine Occult Blood Urine Nitrite Urine Bilirubin Urine Urobilinogen Ur Leukocyte Esterase Urine RBC Urine WBC Ur Squamous Epith Cells Urine Bacteria Urine Mucus 11/10/24 11/10/24 11/10/24 17:23 17:23 17:40 WBC RBC Hgb Hct MCV MCH MCHC RDW Std Deviation RDW Coeff of Adelfo Plt Count MPV Immature Gran % (Auto) Neut % (Auto) Lymph % (Auto) Gregory % (Auto) Eos % (Auto) Baso % (Auto) Absolute Neuts (auto) Absolute Lymphs (auto) Nucleated RBC % Differential Comment Platelet Estimate Sodium Potassium Chloride Carbon Dioxide Anion Gap BUN Creatinine Estim Creat Clear Calc Est GFR (MDRD) Non-Af BUN/Creatinine Ratio Glucose Lactic Acid 3.3 H* Calcium Total Bilirubin Direct Bilirubin AST ALT Alkaline Phosphatase Troponin T High Sens Total Protein Albumin 3.3 L Globulin 2.9 3.0 Albumin/Globulin Ratio 1.1 Lipase 16 Urine Color Urine Clarity Urine pH Ur Specific [place] Urine Protein Urine Glucose (UA) Urine Ketones Urine Occult Blood Urine Nitrite Urine Bilirubin Urine Urobilinogen Ur Leukocyte Esterase Urine RBC Urine WBC Ur Squamous Epith Cells Urine Bacteria Urine Mucus 11/10/24 11/10/24 19:00 19:15 WBC RBC Hgb Hct MCV MCH MCHC RDW Std Deviation RDW Coeff of Adelfo Plt Count MPV Immature Gran % (Auto) Neut % (Auto) Lymph % (Auto) Gregory % (Auto) Eos % (Auto) Baso % (Auto) Absolute Neuts (auto) Absolute Lymphs (auto) Nucleated RBC % Differential Comment Platelet Estimate Sodium Potassium Chloride Carbon Dioxide Anion Gap BUN Creatinine Estim Creat Clear Calc Est GFR (MDRD) Non-Af BUN/Creatinine Ratio Glucose Lactic Acid Calcium Total Bilirubin Direct Bilirubin AST ALT Alkaline Phosphatase Troponin T High Sens 26 H Total Protein Albumin Globulin Albumin/Globulin Ratio Lipase Urine Color Yellow Urine Clarity Cloudy Urine pH 5.0 Ur Specific [place] 1.010 Urine Protein 30 H Urine Glucose (UA) Normal Urine Ketones Negative Urine Occult Blood 10 H Urine Nitrite Positive H Urine Bilirubin 6 H Urine Urobilinogen 4 H Ur Leukocyte Esterase 25 H Urine RBC 0-5 SEEN Urine WBC 0-5 SEEN Ur Squamous Epith Cells 5-10 SEEN Urine Bacteria 2+ Urine Mucus 1+ Radiography Chest X-Ray - ED: 2 View, Read by ED Physician, Normal, No Acute Disease and No Infiltrates Diagnostic Testing: Clinical Impression(s) from Imaging Studies Abdomen/Pelvis CT 11/10/24 17:30 IMPRESSION: 1. Recent ERCP with interval placement of biliary stent and associated pneumobilia. Increased moderate dilatation of multiple intrahepatic bile ducts. 2. Large cystic lesion abutting and superior to the uterine fundus measuring 9.6x 10.9 x 9.2 cm. Etiology is unclear but may originate from the left ovary/adnexa. Reading Location: [facility] Chest X-Ray 11/10/24 19:16 IMPRESSION: NO ACUTE FINDINGS. Reading Location: [facility] Discharge Plan Triage Chief Complaint: Abd Pain ED Provider: Janet Sullivan Dx/Rx/DC Orders Prescriptions: No Action lisinopril 20 mg tablet 10 mg PO DAILY Primary Care Provider: Joe Tim: Joe Tim MD [Primary Care Provider] - Print Language: Faroese What to do if you have Problems For any increased pain, shortness of breath, bleeding, nausea or vomiting, chestpain, or any unexpected problems, contact your Primary Care Provider. Call [facility] ([phone]) or report to the closest Emergency Room. Call 911 if necessary. 11/10/244 <Electronically signed by Janet Sullivan MD> Cosigner Signature (if applicable): CC: Dr. Joe Tim MD ~ Signed ADDENDUM by Dr. Sotero Martinez DO on 11/11/24 at 0305 Care of the patient was turned over to ok pending transfer. There are no beds available at [facility] at this time. Patient will be admitted here until transfer bed becomes available. Case was discussed with thehospitalist. He will admit the patient to his service. Patient and family understood and were agreeable with the plan. All questions were answered. 11/11/24 0305<Electronically signed by Sotero Martinez DO> Cosigner Signature (if applicable): cc: Dr. Joe Tim MD ~* Signed [facility] Work Phone: 1(240) 870-470708-12-2025 [facility]08-12-2025 History of Present illness Narrative* Suly Montes APRN.CNP - 11/09/2024 9:30 AM EDT H&P completed 11/02/24 in [facility] by Maria G Gomes APRN.CNP. documented in this encounterTrihealth Mccull[facility]08-12-2025 NoteHNO ID: [id number] Author: SULY MONTES APRN.CNP Service: Anesthesiology Author Type: Nurse Practitioner Type: Progress Notes Filed: 11/09/2024 08:17 Note Text: HANDP completed 11/02/24 in PAT by Maria G Gomes APRN.CNP.[facility]07-29-2025 Telephone encounter Note* Telephone Encounter - Aga Herrera - 10/26/2024 9:25 AM EDT Dolores, please schedule an ERCP for biliary decompression with goal of placing stents in the right liver lesli. Patient has history of gallbladder cancer invading liver and duodenum who underwent vesna,segment IVb/V liver resection. Called pt per message with Dr Jose, Dr Jones and Dr Santamaria. Are you on any blood thinners? no Are you on any diabetic medications? no Do you have any allergies? None Pt is scheduled for 11/09/24 [facility]07-29-2025 Miscellaneous Notes* Telephone Encounter - Aga Herrera - 10/26/2024 9:25 AM EDT Dolores please schedule an ERCP for biliary decompression with goal of placing stents in the right liver lesli. Patient has history of gallbladder cancer invading liver and duodenum who underwent vesna,segment IVb/V liver resection. Called pt per message with Dr Jose, Dr Jones and Dr Santamaria. Are you on any blood thinners? no Are you on any diabetic medications? no Do you have any allergies? None Pt is scheduled for 11/09/24 documented in this encounterTrihealth Mccull[facility]07-25-2025 Telephone encounter Note * Telephone Encounter - Serenity Kong LPN - 10/22/2024 10:03 AM EDT Patient's scheduled labs for Friday10/25/2024. He is aware of all information. Serenity Kong LPN [facility]07-25-2025 Miscellaneous Notes* Telephone Encounter - Serenity Kong LPN - 10/22/2024 10:03 AM EDT Patient's scheduled labs for Friday10/25/2024. He is aware of all information. Serenity Kong LPN * Telephone Encounter - Tin Jose DO - 10/22/2024 6:39 AM EDT Please ask her to come for lab [...] week would be helpful. Tin Jose DO * Telephone Encounter - Serenity Kong LPN - 10/21/2024 9:[address] chest still in-process. Serenity Kong LPN * Telephone Encounter - Serenity Kong LPN - 10/20/2024 8:52 AM EDT Today's lab/OV cancelled d/t CT's still in process. Dr. Jose will call patient with results but patient still needs labs; she did not want to come in today just for labs. Serenity Kong LPN documented in this encounterTrihealth Mccull[facility]07-25-2025 Telephone encounter Note * Telephone Encounter - Tin Jose DO - 10/22/2024 6:39 AM EDT Please ask her to come for lab [...] week would be helpful. Tin Jose DO [facility]07-24-2025 Telephone encounter Note* Telephone Encounter - Serenity Kong LPN - 10/21/2024 9:[address] chest still in-process. Serenity Kong LPN [facility]07-23-2025 Telephone encounter Note* Telephone Encounter - Serenity Kong LPN - 10/20/2024 8:52 AM EDT Today's lab/OV cancelled d/t CT's still in process. Dr. Jose will call patient with results but patient still needs labs; she did not want to come in today just for labs. Serenity Kong LPN [facility]07-16-2025 History of Present illness Narrative* Shireen Barron, RT(R) - 10/13/2024 9:00 AM EDT Radiology Service Progress Note DATE OF SERVICE: [...] Assigned female at . status: : No status:NO. PATIENT RELEVANT IMPLANT DATA REVIEWED: Yes PATIENT PRESENTS WITH AN IMPLANTABLE OR ATTACHED AREA FIELD WORKER: No ALLERGIES: Reviewed and unchanged CONTRAST ALLERGY: [...] creatinine assay has traceable calibration to isotope dilution- mass spectrometry. Refer to KDIGO guidelines for clinical interpretation. In patients with unstable renal function, e.g. those with acute kidney injury, the eGFRmay not accurately reflect actual GFR. P.O.C.T. RESULTS: POC done: Yes, See Lab Tab October 13, 2024 TREATMENT: N/A PERIPHERAL IV DATA: Ambulatory: A peripheral IV was started in the Left antecubital site with a Angio cath: 22 gauge. RADIOLOGY DEPARTMENT: CT; Exam(s) Completed: Chest Abdomen Pelvis SIGNATURE: RT Tiago(R) PATIENT NAME: Marie Blair DATE: October 13, 2024 TIME: 2:55 PM documented in this encounterTrihealth Mccull[facility]07-16-2025 NoteOhio[facility]07-15-2025 Telephone encounter Note* Telephone Encounter - Denice Orozco APRN.CNP - 10/12/2024 9:41 AM EDT Done. Denice Orozco APRN.CNP [facility]07-15-2025 Miscellaneous Notes* Telephone Encounter - Denice Orozco APRN.CNP - 10/12/2024 9:41 AM EDT Done. Denice Orozco APRN.CNP * Telephone Encounter - Janet Bunch PSS - 10/11/2024 4:[address] order for creatinine order for pt , pt appt on 10/13/[address] documented in this encounterTrihealth Mccull[facility]07-14-2025 Telephone encounter Note * Telephone Encounter - Janet Bunch PSS - 10/11/2024 4:[address] order for creatinine order for pt , pt appt on 10/13/[address] [facility]04-16-2025 NoteOhiohealth Nelsonville Health Center04-16-2025 History of Present illness Narrative* Tin Jose, - 07/14/2024 12:51 PM EDT Oncologic problem(s): 1) Cholangiocarcinoma. HPI: The patient [...] biliary ductal dilation. She is admitted to [facility] on 11/18/2023. Started on antibiotics. Transferred to [facility]. Underwent MRCP. 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 Transferred to [facility] On 11/19. ERCP on 11/20. Failed attempt [...] into hepatic parenchyma and duodenal wall as wellas pericholecystic fibroadipose with microscopic features of pericholecystic [...] (Chapter 1, 8th Ed.) it is the managingphysician s responsibility to establish the final pathologic [...] Once exam is complete flush line and de-accessaccording to line specific nursing protocol in the [...] Once exam is complete flush line and de-accessaccording to line specific nursing protocol in the [...] which included preparing to see the patient, [id number] patient care, completing clinical documentation, obtaining and/or reviewing separately obtained history, performing a medically appropriate examination, counseling and educating the pat ient/family/caregiver, ordering medications, tests, or procedures, communicating with other HCPs (not separately reported), and communicating results to the patient/family/caregiver. Tin Jose DO documented in this encounterTrihealth Mccull[facility]04-14-2025 NoteOhiohealth Nelsonville [facility] Center04-09-2025 History of Present illness Narrative* Shireen Barron RT(R) - 07/07/2024 9:20 AM EDT Radiology Service Progress Note DATE OF SERVICE: [...] Assigned female at . status: : No status:NO. PATIENT RELEVANT IMPLANT DATA REVIEWED: Yes PATIENT PRESENTS WITH AN IMPLANTABLE OR ATTACHED AREA FIELD WORKER: No ALLERGIES: Reviewed and unchanged CONTRAST ALLERGY: [...] creatinine assay has traceable calibration to isotope dilution- mass spectrometry. Refer to KDIGO guidelines for clinical interpretation. In patients with unstable renal function, e.g. those with acute kidney injury, the eGFRmay not accurately reflect actual GFR. P.O.C.T. RESULTS: POC done: Yes, See Lab Tab July 07, 2024 TREATMENT: N/A PERIPHERAL IV DATA: Ambulatory: A peripheral IV was started in the Left antecubital site with a Angio cath: 22 gauge. RADIOLOGY DEPARTMENT: CT; Exam(s) Completed: Chest Abdomen Pelvis SIGNATURE: RT Tiago(R) PATIENT NAME: Marie Blair DATE: July 07, 2024 TIME: 12:05 PM documented in this encounterTrihealth Mccull[facility]04-09-2025 NoteOhiohealth Nelsonville [facility] Center03-31-2025 Telephone encounter Note* Telephone Encounter - Taty Velazquez APRN.CNP - 06/28/2024 11:25 AM EDT Please let patient know that her CA125 marker is within normal limits. I would like her to follow-up with [facility] for large cyst removal. Order filed for consult.Taty Velazquez APRN.CNP [facility]03-31-2025 Miscellaneous Notes* Telephone Encounter - Taty Velazquez APRN.CNP - 06/28/2024 11:25 AM EDT Please let patient know that her CA125 marker is within normal limits. I would like her to follow-up with [facility] for large cyst removal. Order filed for consult.Taty Velazquez APRN.CNP documented in this encounterTrihealth Mccull[facility]03-25-2025 NoteOhiohealth Nelsonville [facility] Center03-25-2025 History of Present illness Narrative* Denice Orozco APRN.CNP - 06/22/2024 9:26 AM EDT Chief Complaint Patient presents with: Established Patient [...] biliary ductal dilation. She is admitted to [facility] on 11/18/2023. Started on antibiotics. Transferred to [facility]. Underwent MRCP. 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 Transferred to [facility] On 11/19. ERCP on 11/20. Failed attempt [...] into hepatic parenchyma and duodenal wall as wellas pericholecystic fibroadipose with microscopic features of pericholecystic [...] (Chapter 1, 8th Ed.) it is the managingphysician s responsibility to establish the final pathologic [...] 1.00 - 4.00 k/uL 2.20 2.08 2.02 Gregory% % 10.5 10.7 10.4 Abs Gregory <0.87 k/uL 0.61 0.61 0.54 Eosin% % [...] Continue current medications. - Follow up with [facility] as scheduled. CA125 pending. - Proceed with [...] visit. Denice Orozco APRN.DANIELLA documented in this encounterTrihealth Mccull[facility]03-24-2025 History of Present illness Narrative* Ana Rey - 06/21/2024 2:11 PM EDT [facility] Refill Assessment Medication(s): Capecitabine Patient's [...] progressing towards achieving therapeutic goals based on medication- specific laboratory parameters, disease state markers and outcomes. Office/provider notes have been reviewed prior to dispensing the medication. Senior Security Architect Assessment Patient confirmed: Yes Med/dose confirmed: Yes Supplies needed: No supplies needed Missed doses: No Estimated days supply on hand: 0 Next cycle/dose due: 06/28/24 Copay amount: 9.92 Copay form of payment: Credit card on file Payment confirmed: Yes Delivery method: FedEx Signature required: No Delivery address: [address] [place] [address] Delivery date: 06/23/24 Questions or concerns for [...] facility-administered medications on file prior to visit. [facility] CLINICAL ASSESSMENT - HEMATOLOGY ONCOLOGY V6: Assessment to use: Refill Date of influenza vaccination reminder: 01/01/2024 Date of most recent vaccination assessment: 01/01/2024 Treatment Plan Information: Dx: Gall bladder adenocarcinoma Tx hx: Radical cholecystectomy Tx regimen: Xeloda monotherapy Med: capecitabine (Xeloda) Dose: 1250 mg/m2 x 1.77 m2 = 2212.5 mg BID. Rounded to 1500 mg BID (47.5 % change). d/t [place] japanese population and tolerance Sig: Take 3 tablets (1500 mg) by mouth twice daily with food for 14 days, followed by 7 days off Admin notes: c food, separate by 12 hrs Storage: rm temp Aes: HFS, diarrhea, stomatitis, low appetite, eye irritation Emetic pot: Low Baseline Labs: 12/16/23 - Scr (CrCl 70.8 ml/min), bili, AST, ALT, Hep b screen (triple negative), CBC, DPYD (normalmetabolizer) DDI: NONE as of 01/01/24 Est. Tx Plan Start Date: 01/12/2024 Estimated Start Date Info: Tx team confirmed start of cycle on 01/12/24. Est. Estimated Treatment Duration: 6 months or until disease progression or unacceptable toxicity Ana Rey documented in this encounterTrihealth Mccull[facility]03-24-2025 NoteOhiohealth Nelsonville [facility] Center03-17-2025 History of Present illness Narrative* Belen Tesfaye, RT(R) - 06/14/2024 9:30 AM EDT Radiology Service Progress Note DATE OF SERVICE: [...] Assigned female at . status: : No status:NO. PATIENT RELEVANT IMPLANT DATA REVIEWED: Yes PATIENT PRESENTS WITH AN IMPLANTABLE OR ATTACHED AREA FIELD WORKER: No ALLERGIES: Reviewed and unchanged CONTRAST ALLERGY: NO. EXAM: MRI - CONTRAST TYPE: GROUP II PERIPHERAL IV DATA: Ambulatory: A peripheral IV was started in the Left WRIST with a Angio cath: 22gauge. RADIOLOGY DEPARTMENT: MR; Exam(s) Completed: Body: Female Pelvis SIGNATURE: RT Lala(R) PATIENT NAME: Marie Blair DATE: June 14, 2024 TIME: 9:57 AM documented in this encounterTrihealth Mccullough-[facility]03-17-2025 NoteOhiohealth Nelson[facility] Center03-11-2025 NoteOhiohealth [facility]03-11-2025 History of Present illness Narrative* Taty Velazquez APRN.CEREAL MAKER - 06/08/2024 10:05 AM EDT Patient declined filenet p8 developer. Marie Blair is a 79 year old female who presents for follow up visit for pelvic US HPI: pt presents today to discuss US report. US was ordered by Denice Orozco. Pt denies any pain.Pt states that she was not aware of [...] OB History No obstetric history on file. Estimator Printing Plate Making History LMP: Postmenopausal Age at Menarche: Age at First : Age at Menopause: Estimator Printing Plate Making History Comments: Sexual Activity: No sexual activity [...] notify patient of test results. Taty Velazquez APRN.CNP Medical Decision Making: Problems: Moderate: New problem with uncertain prognosis Data: Unique test(s) ordered: 1 Risk: Low: Low risk from testing/treatment Medical Decision Making Level: 3 - Low documented in this encounterTrihealth Mccull[facility]03-07-2025 NoteOhiohealth Nelson[facility] Center03-07-2025 History of Present illness Narrative* Denice Orozco APRN.CNP - 06/04/2024 8:49 AM EST Chief Complaint Patient presents with: Established Patient [...] biliary ductal dilation. She is admitted to [facility] on 11/18/2023. Started on antibiotics. Transferred to [facility]. Underwent MRCP. 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 Transferred to [facility] On 11/19. ERCP on 11/20. Failed attempt [...] into hepatic parenchyma and duodenal wall as wellas pericholecystic fibroadipose with microscopic features of pericholecystic [...] (Chapter 1, 8th Ed.) it is the managingphysician s responsibility to establish the final pathologic [...] 1.00 - 4.00 k/uL 2.20 2.20 2.08 Gregory% % 12.4 10.5 10.7 Abs Gregory <0.87 k/uL 0.90 (H) 0.61 0.61 Eosin% [...] Continue current medications. - Follow up with [facility] as scheduled. - Proceed with next cycle [...] visit. Denice Orozco APRN.DANIELLA documented in this encounterTrihealth Mccull[facility]03-03-2025 History of Present illness Narrative* Shelia Machado - 05/31/2024 2:25 PM EST [facility] Refill Assessment Medication(s): capecitabine Patient's [...] progressing towards achieving therapeutic goals based on medication- specific laboratory parameters, disease state markers and outcomes. Office/provider notes have been reviewed prior to dispensing the medication. Senior Security Architect Assessment Patient confirmed: Yes Med/dose confirmed: Yes Supplies needed: No supplies needed Missed doses: No Estimated days supply on hand: (last dose 05/30) Copay amount: 11.52 Copay form of payment: Credit card on file Payment confirmed: Yes Delivery method: FedEx Signature required: No Delivery address: [address] [place] [address] Delivery date: 06/03/24 Questions or concerns for [...] facility-administered medications on file prior to visit. [facility] CLINICAL ASSESSMENT - HEMATOLOGY ONCOLOGY V6: Assessment to use: Refill Date of influenza vaccination reminder: 01/01/2024 Date of most recent vaccination assessment: 01/01/2024 Treatment Plan Information: Dx: Gall bladder adenocarcinoma Tx hx: Radical cholecystectomy Tx regimen: Xeloda monotherapy Med: capecitabine (Xeloda) Dose: 1250 mg/m2 x 1.77 m2 = 2212.5 mg BID. Rounded to 1500 mg BID (47.5 % change). d/t [place] population and tolerance Sig: Take 3 tablets (1500 mg) by mouth twice daily with food for 14 days, followed by 7 days off Admin notes: c food, separate by 12 hrs Storage: rm temp Aes: HFS, diarrhea, stomatitis, low appetite, eye irritation Emetic pot: Low Baseline Labs: 12/16/23 - Scr (CrCl 70.8 ml/min), bili, AST, ALT, Hep b screen (triple negative), CBC, DPYD (normalmetabolizer) DDI: NONE as of 01/01/24 Est. Tx Plan Start Date: 01/12/2024 Estimated Start Date Info: Tx team confirmed start of cycle on 01/12/24. Est. Estimated Treatment Duration: 6 months or until disease progression or unacceptable toxicity Shelia Machado documented in this encounterTrihealth Mccull[facility]03-03-2025 NoteOhiohealth [facility] Center02-14-2025 NoteOhiohealth Nelson[facility]02-14-2025 History of Present illness Narrative* Denice Orozco, DAVEY.CEREAL MAKER - 05/14/2024 9:13 AM EST Chief Complaint Patient presents with: Established Patient [...] biliary ductal dilation. She is admitted to [facility] on 11/18/2023. Started on antibiotics. Transferred to [facility]. Underwent MRCP. 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 Transferred to [facility] On 11/19. ERCP on 11/20. 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 - Focal serosal involvement is identified. - Margins negative for high-grade dysplasia and malignancy. - Positive for lymphovascular invasion. - Non-neoplastic hepatic parenchyma with no significant pathologic changes. Diagnosis Comment Block for additional Biomarkers/Molecular studies F6 Synoptic Report GALLBLADDER 8th Edition - Protocol posted: 6/30/2021GALLBLADDER: RESECTION/CHOLECYSTECTOMY - All Specimens SPECIMEN Procedure En [...] (Chapter 1, 8th Ed.) it is the managingphysician s responsibility to establish the final pathologic [...] 1.00 - 4.00 k/uL 2.40 2.20 2.20 Gregory% % 10.3 12.4 10.5 Abs Gregory <0.87 k/uL 0.72 0.90 (H) 0.61 Eosin% [...] Continue current medications. - Follow up with [facility] as scheduled. - Proceed with next cycle [...] visit. Denice Orozco APRN.DANIELLA documented in this encounterTrihealth Mccullough-[facility]02-13-2025 History of Present illness Narrative* Shelia Machado - 05/13/2024 1:16 PM EST [facility] Refill Assessment Medication(s): capecitabine Reviewed [...] progressing towards achieving therapeutic goals based on medication- specific laboratory parameters, disease state markers and outcomes. Office/provider notes have been reviewed prior to dispensing the medication. Sotero Bronson, CoreyD Clinical Pharmacist, Oncology [facility] P: ; F: Pool: P [facility] Pool #: [id number] Senior Security Architect Assessment Patient confirmed: Yes Med/dose confirmed: Yes Supplies needed: No supplies needed Missed doses: No Estimated days supply on hand: 0 (last dose 05/09) Next cycle/dose due: 05/17/24 Copay amount: 9.92 Copay form of payment: Credit card on file Payment confirmed: Yes Delivery method: FedEx Signature required: No Delivery address: [address] [place] [address] Delivery date: 05/15/24 Questions or concerns for [...] facility-administered medications on file prior to visit. [facility] CLINICAL ASSESSMENT - HEMATOLOGY ONCOLOGY [...] mg BID (47.5 % change). d/t north [place]ese population and tolerance Sig: Take 3 tablets (1500 mg) by mouth twice daily with food for 14 days, followed by 7 days off Admin notes: c food, separate by 12 hrs Storage: rm temp Aes: HFS, diarrhea, stomatitis, low appetite, eye irritation Emetic pot: Low Baseline Labs: 12/16/23 - Scr (CrCl 70.8 ml/min), bili, AST, ALT, Hep b screen (triple negative), CBC, DPYD (normalmetabolizer) DDI: NONE as of 01/01/24 Est. Tx Plan Start Date: 01/12/2024 Estimated Start Date Info: Tx team confirmed start of cycle on 01/12/24. Est. Estimated Treatment Duration: 6 months or until disease progression or unacceptable toxicity Shelia Machado documented in this encounterTrihealth Mccull[facility]02-13-2025 NoteOhiohealth Nelson[facility] Center01-27-2025 History of Present illness Narrative* Shelia Machado - 04/26/2024 5:43 PM EST [facility] Refill Assessment Medication(s): Capecitabine Patient's [...] progressing towards achieving therapeutic goals based on medication- specific laboratory parameters, disease state markers and outcomes. Office/provider notes have been reviewed prior to dispensing the medication. Senior Security Architect Assessment Patient confirmed: Yes Med/dose confirmed: Yes Supplies needed: No supplies needed Missed doses: No Next cycle/dose due: 04/26/24 Copay amount: 9.6 Copay form of payment: Credit card on file Payment confirmed: Yes Delivery method: FedEx Signature required: No Delivery address: [address] [place] [address] Delivery date: 04/28/24 Questions or concerns for [...] facility-administered medications on file prior to visit. [facility] CLINICAL ASSESSMENT - HEMATOLOGY ONCOLOGY V7 Date of influenza vaccination reminder: 01/01/2024 Date of most recent vaccination assessment: 01/01/2024 Treatment Plan Information: Dx: Gall bladder adenocarcinoma Tx hx: Radical cholecystectomy Tx regimen: Xeloda monotherapy Med: capecitabine (Xeloda) Dose: 1250 mg/m2 x 1.77 m2 = 2212.5 mg BID. Rounded to 1500 mg BID (47.5 % change). DR beal/t north j[place]ese population and tolerance Sig: Take 3 tablets (1500 mg) by mouth twice daily with food for 14 days, followed by 7 days off Admin notes: c food, separate by 12 hrs Storage: rm temp Aes: HFS, diarrhea, stomatitis, low appetite, eye irritation Emetic pot: Low Baseline Labs: 12/16/23 - Scr (CrCl 70.8 ml/min), bili, AST, ALT, Hep b screen (triple negative), CBC, DPYD (normalmetabolizer) DDI: NONE as of 01/01/24 Est. Tx Plan Start Date: 01/12/2024 Estimated Start Date Info: Tx team confirmed start of cycle on 01/12/24. Est. Estimated Treatment Duration: 6 months or until disease progression or unacceptable toxicity Shelia Machado documented in this encounterTrihealth Mccull[facility]01-27-2025 NoteOhiohealth Nelsonville [facility] Center01-27-2025 Telephone encounter Note* Telephone Encounter - Denice Orozco APRN.CNP - 04/26/2024 1:57 PM EST Noted. Thank you. Denice Orozco APRN.CNP [facility]01-27-2025 Miscellaneous Notes* Telephone Encounter - Denice Orozco APRN.CNP - 04/26/2024 1:57 PM EST Noted. Thank you. Denice Orozco APRN.CNP * Telephone Encounter - Melissa Menchaca - 04/26/2024 1:52 PM EST I called and spoke to Marie and scheduled her as a new patient in our [facility] department with Taty Gagef for 06/08/24, she confirmed this date & time. She did not want to go to another [facility] facility to be seen sooner Melissa Orantes * Telephone Encounter - Denice Orozco APRN.CNP - 04/26/2024 12:30 PM EST Please see check out note from Friday. Pt. still needs a follow up scheduled with [facility]-see notes. Denice Orozco APRN.CNP documented in this encounterTrihealth Mccullough-[facility]01-27-2025 Telephone encounter Note * Telephone Encounter - Melissa [place] - 04/26/2024 1:52 PM EST I called and spoke to Marie and scheduled her as a new patient in our [facility] department with Tatysony FowlerPieter for 06/08/24, she confirmed this date & time. She did not want to go to another [facility] facility to be seen sooner Melissa Orantes [facility]01-27-2025 Telephone encounter Note* Telephone Encounter - Denice Orozco APRN.CNP - 04/26/2024 12:30 PM EST Please see check out note from Friday. Pt. still needs a follow up scheduled with [facility]-see notes. Denice Orozco APRN.CNP [facility]01-27-2025 History of Present illness Narrative* Aga Crowe RDMS - 04/26/2024 10:45 AM EST Radiology Service Progress Note PATIENT NAME: Marie Blair DATE OF SERVICE: April 26, 2024 TIME: 1:24 PM PATIENT IDENTITY VERIFICATION COMPLETED USING TWO (2) IDENTIFIERS: Name and Date of confirmedby patient verbally. FALL SCREENING: Has the patient had 2 falls in the last year or 1 fall with injury or currently using an Ambulatory Assistive Device (Walker, Cane, Wheelchair, Crutches, etc.)? No PATIENT GENDER DATA: Assigned female at . status: : No status:NO. PATIENT RELEVANT IMPLANT DATA REVIEWED: Not Applicable PATIENT PRESENTS WITH AN IMPLANTABLE OR ATTACHED AREA FIELD WORKER: No RADIOLOGY DEPARTMENT: Ultrasound PERIPHERAL IV DATA: Not applicable SIGNED BY: Aga Crowe RDMS RVT April 26, 2024 1:24 PM documented in this encounterTrihealth Mccull[facility]01-27-2025 [facility]01-24-2025 NoteOhio[facility]01-24-2025 History of Present illness Narrative* Denice Orozco APRN.DANIELLA - 2024 8:32 AM EST Chief Complaint Patient presents with: Established Patient [...] biliary ductal dilation. She is admitted to [facility] on 11/18/2023. Started on antibiotics. Transferred to [facility]. Underwent MRCP. 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 Transferred to [facility] On 11/19. ERCP on 11/20. Failed attempt [...] into hepatic parenchyma and duodenal wall as wellas pericholecystic fibroadipose with microscopic features of pericholecystic [...] (Chapter 1, 8th Ed.) it is the managingphysician s responsibility to establish the final pathologic [...] 69.4 kg (153 lb) SpO2 97% BMI 23.61kg/m APPEARANCE Well appearing, alert, in no acute [...] to palms LABS: Latest Ref Rng 03/11/2024 04/02/2024 2024 WBC 3.70 - 11.00 k/uL 6.97 7.01 [...] 1.00 - 4.00 k/uL 2.96 2.40 2.20 Gregory% % 10.3 10.3 12.4 Abs Gregory <0.87 k/uL 0.72 0.72 0.90 (H) Eosin% [...] Friday. - US pelvis soon. - Needs [facility] eval after above. - Follow up @ 9a.m. with CBC/CMP. - Pt. aware to call office with any questions/concerns. The patient indicates understanding of these issues and agrees with the plan. All documentation from previous visit of 04/02/24-Dr. Jose/myself was copied and pasted, documentation has been reviewed and edited as necessary for today's visit. Denice Orozco APRN.CNP documented in this encounterTrihealth Mcc[facility]01-21-2025 History of Present illness Narrative* Shelia Machado - 04/20/2024 6:04 PM EST [facility] Ref[facility] Assessment Medication(s): Capecitabine Patient's [...] progressing towards achieving therapeutic goals based on medication- specific laboratory parameters, disease state markers and outcomes. Office/provider notes have been reviewed prior to dispensing the medication. Senior Security Architect Assessment Patient confirmed: Yes Med/dose confirmed: Yes Supplies needed: No supplies needed Missed doses: No Estimated days supply on hand: 0 (last dose 04/18) Next cycle/dose due: 04/26/24 Copay amount: 49.6 Copay form of payment: Credit card on file Payment confirmed: Yes Delivery method: FedEx Signature required: No Delivery address: [address] [place] [address] Delivery date: 04/22/24 Questions or concerns for [...] facility-administered medications on file prior to visit. [facility] SPECIALTY CLINICAL ASSESSMENT - HEMATOLOGY ONCOLOGY V6: Assessment to use: Refill Date of influenza vaccination reminder: 01/01/2024 Date of most recent vaccination assessment: 01/01/2024 Treatment Plan Information: Dx: Gall bladder adenocarcinoma Tx hx: Radical cholecystectomy Tx regimen: Xeloda monotherapy Med: capecitabine (Xeloda) Dose: 1250 mg/m2 x 1.77 m2 = 2212.5 mg BID. Rounded to 1500 mg BID (47.5 % change). d/t north j[place]ese population and tolerance Sig: Take 3 tablets (1500 mg) by mouth twice daily with food for 14 days, followed by 7 days off Admin notes: c food, separate by 12 hrs Storage: rm temp Aes: HFS, diarrhea, stomatitis, low appetite, eye irritation Emetic pot: Low Baseline Labs: 12/16/23 - Scr (CrCl 70.8 ml/min), bili, AST, ALT, Hep b screen (triple negative), CBC, DPYD (normalmetabolizer) DDI: NONE as of 01/01/24 Est. Tx Plan Start Date: 01/12/2024 Estimated Start Date Info: Tx team confirmed start of cycle on 01/12/24. Est. Estimated Treatment Duration: 6 months or until disease progression or unacceptable toxicity Shelia Machado documented in this encounterTrihealth Mccull[facility]01-21-2025 NoteOhio[facility]01-20-2025 History of Present illness Narrative* Shireen Barron, RT(R) - 04/19/2024 10:40 AM EST Radiology Service Progress Note DATE OF SERVICE: [...] Assigned female at . status: : No status:NO. PATIENT RELEVANT IMPLANT DATA REVIEWED: Yes PATIENT PRESENTS WITH AN IMPLANTABLE OR ATTACHED AREA FIELD WORKER: No ALLERGIES: Reviewed and unchanged CONTRAST ALLERGY: [...] creatinine assay has traceable calibration to isotope dilution- mass spectrometry. Refer to KDIGO guidelines for clinical interpretation. In patients with unstable renal function, e.g. those with acute kidney injury, the eGFRmay not accurately reflect actual GFR. P.O.C.T. RESULTS: POC done: Yes, See Lab Tab April 19, 2024 TREATMENT: N/A PERIPHERAL IV DATA: Ambulatory: A peripheral IV was started in the Left antecubital site with a Angio cath: 22 gauge. RADIOLOGY DEPARTMENT: CT; Exam(s) Completed: Chest Abdomen Pelvis SIGNATURE: RT Tiago(R) PATIENT NAME: Marie Blair DATE: April 19, 2024 TIME: 1:03 PM documented in this encounterTrihealth Mccull[facility]01-20-2025 NoteOhio[facility]01-03-2025 NoteOhio[facility]01-03-2025 History of Present illness Narrative* Denice Orozco APRN.CEREAL MAKER - 04/02/2024 8:46 AM EST Chief Complaint Patient presents with: Established Patient [...] biliary ductal dilation. She is admitted to [facility] on 11/18/2023. Started on antibiotics. Transferred to [facility]. Underwent MRCP. 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 Transferred to [facility] On 11/19. ERCP on 11/20. Failed attempt [...] into hepatic parenchyma and duodenal wall as wellas pericholecystic fibroadipose with microscopic features of pericholecystic [...] (Chapter 1, 8th Ed.) it is the managingphysician s responsibility to establish the final pathologic [...] visit. Denice Orozco APRN.DANIELLA documented in this encounterTrihealth Mccull[facility]12-30-2024 History of Present illness Narrative* Dominga Guerrero - 03/29/2024 2:29 PM EST [facility] Assessment Medication(s): Capecitbaine Patient's [...] progressing towards achieving therapeutic goals based on medication- specific laboratory parameters, disease state markers and outcomes. Office/provider notes have been reviewed prior to dispensing the medication. Senior Security Architect Assessment Patient confirmed: Yes Med/dose confirmed: Yes Supplies needed: No supplies needed Missed doses: No Estimated days supply on hand: 0 Next cycle/dose due: 04/05/24 Copay amount: 15.55 Copay form of payment: Credit card on file Payment confirmed: Yes Delivery method: FedEx Signature required: Waived on patient request Delivery address: [address] [place] [id number] Delivery date: 04/02/24 Questions or concerns for [...] facility-administered medications on file prior to visit. [facility] SPECIAL[facility] CLINICAL ASSESSMENT - HEMATOLOGY ONCOLOGY V6: Assessment to use: Refill Date of influenza vaccination reminder: 01/01/2024 Date of most recent vaccination assessment: 01/01/2024 Treatment Plan Information: Dx: Gall bladder adenocarcinoma Tx hx: Radical cholecystectomy Tx regimen: Xeloda monotherapy Med: capecitabine (Xeloda) Dose: 1250 mg/m2 x 1.77 m2 = 2212.5 mg BID. Rounded to 1500 mg BID (47.5 % change). d/t north [place]ese population and tolerance Sig: Take 3 tablets (1500 mg) by mouth twice daily with food for 14 days, followed by 7 days off Admin notes: c food, separate by 12 hrs Storage: rm temp Aes: HFS, diarrhea, stomatitis, low appetite, eye irritation Emetic pot: Low Baseline Labs: 12/16/23 - Scr (CrCl 70.8 ml/min), bili, AST, ALT, Hep b screen (triple negative), CBC, DPYD (normalmetabolizer) DDI: NONE as of 01/01/24 Est. Tx Plan Start Date: 01/12/2024 Estimated Start Date Info: Tx team confirmed start of cycle on 01/12/24. Est. Estimated Treatment Duration: 6 months or until disease progression or unacceptable toxicity Dominga Guerrero documented in this encounterTrihealth Mccull[facility]12-30-2024 NoteOhio[facility]12-12-2024 NoteOhio[facility]12-12-2024 History of Present illness Narrative* Denice Orozco APRN.CEREAL MAKER - 03/11/2024 9:11 AM EST Chief Complaint Patient presents with: Established Patient [...] biliary ductal dilation. She is admitted to [facility] on 11/18/2023. Started on antibiotics. Transferred to [facility]. Underwent MRCP. 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 Transferred to [facility] On 11/19. ERCP on 11/20. Failed attempt [...] into hepatic parenchyma and duodenal wall as wellas pericholecystic fibroadipose with microscopic features of pericholecystic [...] (Chapter 1, 8th Ed.) it is the managingphysician s responsibility to establish the final pathologic [...] kg (147 lb 11.3 oz) SpO2 99% BMI22.79 kg/m APPEARANCE Well appearing, alert, in no [...] 1.00 - 4.00 k/uL 2.22 3.31 2.96 Gregory% % 13.4 13.2 10.3 Abs Gregory <0.87 k/uL 0.93 (H) 0.87 (H) 0.72 [...] as necessary for today's visit. Denice Orozco APRN.CEREAL MAKER documented in this encounterTrihealth Mccull[facility]12-09-2024 History of Present illness Narrative* Shelia Machado - 03/08/2024 12:37 PM EST [facility] Ref[facility] Assessment Medication(s): Capecitabine Patient's [...] progressing towards achieving therapeutic goals based on medication- specific laboratory parameters, disease state markers and outcomes. Office/provider notes have been reviewed prior to dispensing the medication. Senior Security Architect Assessment Patient confirmed: Yes Med/dose confirmed: Yes Estimated days supply on hand: 0 (Last dose 03/08) Next cycle/dose due: 03/15/24 Copay amount: 0 Copay form of payment: Credit card on file Payment confirmed: Yes Delivery method: FedEx Signature required: No Delivery address: [address] [place] [address] Delivery date: 03/13/24 Questions or concerns for [...] facility-administered medications on file prior to visit. [facility] SPECIAL[facility] CLINICAL ASSESSMENT - HEMATOLOGY ONCOLOGY V6: Assessment to use: Refill Date of influenza vaccination reminder: 01/01/2024 Date of most recent vaccination assessment: 01/01/2024 Treatment Plan Information: Dx: Gall bladder adenocarcinoma Tx hx: Radical cholecystectomy Tx regimen: Xeloda monotherapy Med: capecitabine (Xeloda) Dose: 1250 mg/m2 x 1.77 m2 = 2212.5 mg BID. Rounded to 1500 mg BID (47.5 % change). d/t north j[place]ese population and tolerance Sig: Take 3 tablets (1500 mg) by mouth twice daily with food for 14 days, followed by 7 days off Admin notes: c food, separate by 12 hrs Storage: rm temp Aes: HFS, diarrhea, stomatitis, low appetite, eye irritation Emetic pot: Low Baseline Labs: 12/16/23 - Scr (CrCl 70.8 ml/min), bili, AST, ALT, Hep b screen (triple negative), CBC, DPYD (normalmetabolizer) DDI: NONE as of 01/01/24 Est. Tx Plan Start Date: 01/12/2024 Estimated Start Date Info: Tx team confirmed start of cycle on 01/12/24. Est. Estimated Treatment Duration: 6 months or until disease progression or unacceptable toxicity Shelia Machado documented in this encounterTrihealth Mccull[facility]12-09-2024 NoteOhio[facility]11-22-2024 NoteOhio[facility]11-22-2024 History of Present illness Narrative* Denice Orozco, DAVEY.CEREAL MAKER - 02/20/2024 9:22 AM EST Chief Complaint Patient presents with: Established Patient [...] biliary ductal dilation. She is admitted to [facility] on 11/18/2023. Started on antibiotics. Transferred to [facility]. Underwent MRCP. 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 Transferred to [facility] On 11/19. ERCP on 11/20. Failed attempt [...] into hepatic parenchyma and duodenal wall as wellas pericholecystic fibroadipose with microscopic features of pericholecystic [...] (Chapter 1, 8th Ed.) it is the managingphysician s responsibility to establish the final pathologic [...] 1.00 - 4.00 k/uL 2.22 3.06 3.31 Gregory% % 13.4 9.5 13.2 Abs Gregory <0.87 k/uL 0.93 (H) 0.70 0.87 (H) [...] visit. Denice Orozco APRN.DANIELLA documented in this encounterTrihealth Mccullough-[facility]11-19-2024 History of Present illness Narrative* Shelia Machado - 02/17/2024 10:57 AM EST [facility] Refill Assessment Medication(s): Capecitabine Patient's [...] progressing towards achieving therapeutic goals based on medication- specific laboratory parameters, disease state markers and outcomes. Office/provider notes have been reviewed prior to dispensing the medication. Senior Security Architect Assessment Patient confirmed: Yes Med/dose confirmed: Yes Supplies needed: No supplies needed Missed doses: No Estimated days supply on hand: 0 (last dose 02/14) Next cycle/dose due: 02/23/24 Copay amount: 15.55 Copay form of payment: Credit card on file Payment confirmed: Yes Delivery method: FedEx Signature required: No Delivery address: [address] [place] [address] Delivery date: 02/21/24 Questions or concerns for [...] facility-administered medications on file prior to visit. [facility] SPECIAL[facility] CLINICAL ASSESSMENT - HEMATOLOGY ONCOLOGY V6: Assessment to use: Refill Date of influenza vaccination reminder: 01/01/2024 Date of most recent vaccination assessment: 01/01/2024 Treatment Plan Information: Dx: Gall bladder adenocarcinoma Tx hx: Radical cholecystectomy Tx regimen: Xeloda monotherapy Med: capecitabine (Xeloda) Dose: 1250 mg/m2 x 1.77 m2 = 2212.5 mg BID. Rounded to 1500 mg BID (47.5 % change). d/t north japanese population and tolerance Sig: Take 3 tablets (1500 mg) by mouth twice daily with food for 14 days, followed by 7 days off Admin notes: c food, separate by 12 hrs Storage: rm temp Aes: HFS, diarrhea, stomatitis, low appetite, eye irritation Emetic pot: Low Baseline Labs: 12/16/23 - Scr (CrCl 70.8 ml/min), bili, AST, ALT, Hep b screen (triple negative), CBC, DPYD (normalmetabolizer) DDI: NONE as of 01/01/24 Est. Tx Plan Start Date: 01/12/2024 Estimated Start Date Info: Tx team confirmed start of cycle on 01/12/24. Est. Estimated Treatment Duration: 6 months or until disease progression or unacceptable toxicity Shelia Machado documented in this encounterTrihealth Mccull[facility]11-19-2024 NoteOhiohealth [facility] Center11-12-2024 [facility] Medical Records Department [address] [place] [address] History Physical Exam 02/10/24 1510 MR#: [id number] Acct: [id number] Name: MARIE BLAIR Rep #: [id number] : 1945 78 From: Agus Friend PCP: Dr. Joe Tim MD Status:[facility] Location: [place] [address] History and Physical Date of Admission: 02/10/24 MARIE BLAIR, is a 78 F who presents to the office today for for an initial visit. She presented to [facility] with painful jaundice. She has been transferred to [facility] For the evaluation of right upper quadrant [...] Cosigner Signature (if applicable): CC: Dr. Joe Tim MD; Agus Friend, SignedWSelect Medical [facility]11-01-2024 NoteOhiohealth [facility] 01-30-2024 History of Present illness Narrative* Orozco, CanaDAVEY.CEREAL MAKER - 01/30/2024 9:20 AM EDT Chief Complaint Patient presents with: Established Patient HPI: Marie Blair is a 78 year old female who presents here today for follow up gallbladder cancer/onxeloda. Per Dr. Jose's previous note: H/o Began [...] biliary ductal dilation. She is admitted to [facility] on 11/18/2023. Started on antibiotics. Transferred to [facility]. Underwent MRCP. 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 Transferred to [facility] On 11/19. ERCP on 11/20. Failed attempt [...] into hepatic parenchyma and duodenal wall as wellas pericholecystic fibroadipose with microscopic features of pericholecystic [...] (Chapter 1, 8th Ed.) it is the managingphysician s responsibility to establish the final pathologic [...] Lymph 1.00 - 4.00 k/uL 2.22 3.06 Gregory% % 13.4 9.5 Abs Gregory <0.87 k/uL 0.93 (H) 0.70 Eosin% % [...] as necessary for today's visit. Denice Orozco APRN.CEREAL MAKER documented in this encounterTrihealth Mccull[facility]10-28-2024 History of Present illness Narrative* Kiana Osei - 01/26/2024 12:44 PM EDT [facility] Ref[facility] Assessment Medication(s): Capecitabine Patient's [...] progressing towards achieving therapeutic goals based on medication- specific laboratory parameters, disease state markers and outcomes. Office/provider notes have been reviewed prior to dispensing the medication. Senior Security Architect Assessment Patient confirmed: Yes Med/dose confirmed: Yes [...] method: FedEx Signature required: No Delivery address: [address] [place] [id number] Delivery date: 01/30/24 Questions or concerns for the pharmacist?: Yes Patient questions/concerns: Other (see text box below) Other questions/concerns: Pt wanted to know about getting flu shot messaged [facility] and it is ok to take. Did [...] facility-administered medications on file prior to visit. [facility] SPECIAL[facility] CLINICAL ASSESSMENT - HEMATOLOGY ONCOLOGY V6: Assessment to use: Refill Date of influenza vaccination reminder: 01/01/2024 Date of most recent vaccination assessment: 01/01/2024 Treatment Plan Information: Dx: Gall bladder adenocarcinoma Tx hx: Radical cholecystectomy Tx regimen: Xeloda monotherapy Med: capecitabine (Xeloda) Dose: 1250 mg/m2 x 1.77 m2 = 2212.5 mg BID. Rounded to 1500 mg BID (47.5 % change). d/t north j[place]ese population and tolerance Sig: Take 3 tablets (1500 mg) by mouth twice daily with food for 14 days, followed by 7 days off Admin notes: c food, separate by 12 hrs Storage: rm temp Aes: HFS, diarrhea, stomatitis, low appetite, eye irritation Emetic pot: Low Baseline Labs: 9/17/24 - Scr (CrCl 70.8 ml/min), bili, AST, ALT, Hep b screen (triple negative), CBC, DPYD (normalmetabolizer) DDI: NONE as of 01/01/24 Est. Tx Plan Start Date: 01/12/2024 Estimated Start Date Info: Tx team confirmed start of cycle on 01/12/24. Est. Estimated Treatment Duration: 6 months or until disease progression or unacceptable toxicity Kiana Osei documented in this encounterTrihealth Mccull[facility]10-28-2024 NoteOhiohealth Nelson[facility]10-21-2024 Telephone encounter Note* Telephone Encounter - Teresa Moore RN - 01/19/2024 10:05 AM EDT ORAL ANTI-CANCER AGENTS FOLLOW-UP PHONE CALL/VISIT Patient [...] appetite fair Taste changes: No Nausea: Yes Friday after breakfast. Took Zofran. Vomiting: Yes - 1 episode last Friday after breakfast. Advised patient to take Zofran if she startsto feel nauseous, continue every 8 hours for [...] if unable to comply. Teresa Moore RN [facility]10-21-2024 Miscellaneous Notes* Telephone Encounter - Teresa Moore RN - 01/19/2024 10:05 AM EDT ORAL ANTI-CANCER AGENTS FOLLOW-UP PHONE CALL/VISIT Patient [...] appetite fair Taste changes: No Nausea: Yes Friday after breakfast. Took Zofran. Vomiting: Yes - 1 episode last Friday after breakfast. Advised patient to take Zofran if she startsto feel nauseous, continue every 8 hours for [...] comply. Teresa Moore RN documented in this encounterTrihealth Mccullough-[facility]10-10-2024 Telephone encounter Note * Telephone Encounter - Karen Zamudio - 01/08/2024 9:06 AM EDT Spoke with patient and scheduled. Printed and mailed appointment reminder. Karen Zamudio [facility]10-10-2024 Miscellaneous Notes* Telephone Encounter - Karen Zamudio - 01/08/2024 9:06 AM EDT Spoke with patient and scheduled. Printed and mailed appointment reminder. Karen Zamudio * Telephone Encounter - Clarice Rodney LPN - 01/08/2024 8:39 AM EDT PSS Please reach out to pt to schedule. CBC/CMP/OV towards end off week which will be 01/25-01/31. Can be with Dr. Jose or an PEDIATRIC CARDIOLOGIST. Clarice Rodney LPN * Telephone Encounter - Tin Jose DO - 01/07/2024 9:41 PM EDT Agree. Thank you. Tin Jose DO * Telephone Encounter - Teresa Moore RN - 01/07/2024 3:02 PM EDT Patient started/will start taking xeloda on 01/12/24. Reviewed medication instructions. 3 tablets AM/ 3 tablets PM. Take within 30 minutes after a meal. CBC/CMP/OV towards end off week which will be 01/25-01/31. Can be with Dr. Jose or an PEDIATRIC CARDIOLOGIST. Thank you. Teersa Moore RN * Telephone Encounter - Gaby Matthew - 01/07/2024 1:39 PM EDT Patient called to inform office that she received Xeloda today. documented in this encounterTrihealth Mccullough-[facility]10-10-2024 Telephone encounter Note * Telephone Encounter - Clarice Rodney LPN - 01/08/2024 8:39 AM EDT PSS Please reach out to pt to schedule. CBC/CMP/OV towards end off week which will be 01/25-01/31. Can be with Dr. Jose or an PEDIATRIC CARDIOLOGIST. Clariec Rodney LPN [facility]10-09-2024 Telephone encounter Note* Telephone Encounter - Tin Jose DO - 01/07/2024 9:41 PM EDT Agree. Thank you. Tin Jose DO [facility]10-09-2024 Telephone encounter Note* Telephone Encounter - Teresa Moore RN - 01/07/2024 3:02 PM EDT Patient started/will start taking xeloda on 01/12/24. Reviewed medication instructions. 3 tablets AM/ 3 tablets PM. Take within 30 minutes after a meal. CBC/CMP/OV towards end off week which will be 01/25-01/31. Can be with Dr. Jose or an PEDIATRIC CARDIOLOGIST. Thank you. Teresa Moore RN [facility]10-09-2024 Telephone encounter Note* Telephone Encounter - Gaby Matthew - 01/07/2024 1:39 PM EDT Patient called to inform office that she received Xeloda today. [facility] Work Phone: 1(920) 373-979110-07-2024 NoteOhiohealth [facility] Center10-07-2024 History of Present illness Narrative* Denice Orozco, DAVEY.CEREAL MAKER - 01/05/2024 8:46 AM EDT Chief Complaint Patient presents with: Established Patient [...] biliary ductal dilation. She is admitted to [facility] on 11/18/2023. Started on antibiotics. Transferred to [facility]. Underwent MRCP. 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 Transferred to [facility] On 11/19. ERCP on 11/20. Failed attempt [...] into hepatic parenchyma and duodenal wall as wellas pericholecystic fibroadipose with microscopic features of pericholecystic [...] (Chapter 1, 8th Ed.) it is the managingphysician s responsibility to establish the final pathologic [...] 12/16/23-Dr. Jose was copied and pasted, documentation hasbeen reviewed and edited as necessary for today's visit. Denice Orozco APRN.DANIELLA documented in this encounterTrihealth Mccull[facility]09-27-2024 Miscellaneous Notes* Telephone Encounter - Teresa Moore RN - 12/26/2023 2:06 PM EDT ORAL ANTI-CANCER AGENTS EDUCATION patient called today [...] needed. Teresa Moore RN documented in this encounterTrihealth Mccull[facility]09-27-2024 Telephone encounter Note * Telephone Encounter - Teresa Moore RN - 12/26/2023 2:06 PM EDT ORAL ANTI-CANCER AGENTS EDUCATION patient called today [...] teaching topics as needed. Teresa Moore RN [facility]09-27-2024 [facility]09-27-2024 History of Present illness Narrative* Mikala Jones MD - 12/26/2023 10:04 AM EDT [facility] SURGERY PROGRESS NOTE Subjective INTERVAL HISTORY [...] - refer to Dr. Oden --Follow-up with ok PRVishnu Jones MD HPB Surgeon documented in this encounterTrihealth Mccull[facility]09-20-2024 Telephone encounter Note * Telephone Encounter - Venessa Caro - 12/19/2023 11:31 AM EDT Spoke with Referring office to inquire where they would like the patient to go for procedure. December 19, 2023 11:32 AM Venessa Caro [facility]09-20-2024 Telephone encounter Note* Telephone Encounter - Venessa Caro - 12/19/2023 11:31 AM EDT ----- Message from Colette Ortega sent at 11/28/2023 8:04 AM EDT ----- Regarding: FW: ERCP with stent removal ----- Message ----- From: Snehal Joshua APRN.CNP Sent: 11/26/2023 12:17 PM EDT To: Colette Gr)(Hist) [place]; Rubia Blair MD Subject: ERCP with stent removal Good afternoon, Dr. Blair performed ERCP on 11/25/2023 for choledocholithiasis with plastic biliary stent placement.Can you please assist with scheduling repeat ERCP in 6-8 weeks for stent removal. She may need repeat EGD pending results of abdominal x- ray in 2 weeks. Thank you, Snehal [facility]09-20-2024 Miscellaneous Notes* Telephone Encounter - Venessa Caro - 12/19/2023 11:31 AM EDT Spoke with Referring office to inquire where they would like the patient to go for procedure. December 19, 2023 11:32 AM Venessa Caro * Telephone Encounter - Venessa Caro - 12/19/2023 11:31 AM EDT ----- Message from Colette Ortega sent at 11/28/2023 8:04 AM EDT ----- Regarding: FW: ERCP with stent removal ----- Message ----- From: Snehal Joshua APRN.CEREAL MAKER Sent: 11/26/2023 12:17 PM EDT To: Colette Gr)(Hist) [place]; Rubia Blair MD Subject: ERCP with stent removal Good afternoon, Dr. Blair performed ERCP on 11/25/2023 for choledocholithiasis with plastic biliary stent placement.Can you please assist with scheduling repeat ERCP in 6-8 weeks for stent removal. She may need repeat EGD pending results of abdominal x- ray in 2 weeks. Thank you, Snehal documented in this encounterTrihealth Mccull[facility]09-18-2024 History of Present illness Narrative* Shelia Machado - 12/17/2023 8:08 AM EDT [facility] received prescription(s) for Capecitabine from Dr. Jose's office. Benefits investigation was conducted, indicating that NO prior authorization is required by his/herOCFBF Medicare Advantage plan. Medication is 80% covered under medical Part B benefit, leaving a 20% coinsurance (copay is $15.55 / cycle at current dose) until the $ medical max out of pocket (MOOP)is met. To date, s/he has met ~$ of the MOOP. Unfortunately, there is no copay assistance for capecitabine available at this time. Will be contacting pt to discuss affordability and alternative options that may be available. documented in this encounterTrihealth Mccull[facility]09-18-2024 [facility] NoteOhio[facility]09-17-2024 NoteOhio[facility]09-17-2024 History of Present illness Narrative* RebecaTin, - 12/16/2023 2:48 PM EDT Marie Blair is a 78 year old [...] biliary ductal dilation. She is admitted to [facility] on 11/18/2023. Started on antibiotics. Transferred to [facility]. Underwent MRCP. 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 Transferred to [facility] On 11/19. ERCP on 11/20. Failed attempt [...] into hepatic parenchyma and duodenal wall as wellas pericholecystic fibroadipose with microscopic features of pericholecystic [...] (Chapter 1, 8th Ed.) it is the managingphysician s responsibility to establish the final pathologic [...] tablet Take 1 tablet by mouth every 12hours for 10 days. acetaminophen (TYLENOL) 325 mg [...] temperature 36.6 C (97.9 F), temperature source Temporal,height 171.5 cm (5' 7.5), weight 65.8 kg [...] No jaundice or rash. No petechiae. NEUROLOGIC: oracle technical architect II-XII are grossly intact. No focal motor [...] mm each. Otherwise, no active infiltrates. No endobronchiallesion. Pleural space: No pleural effusion. No pleural thickening. Lower neck, lymph nodes, and mediastinum: Multiple small bilateral thyroidal nodules. No mediastinal lymphadenopathy. Heart, pericardium, and thoracic vessels: Atherosclerotic coronary calcifications. The heart is notenlarged. The great vessels are normal in caliber. Bones and soft tissues: No destructive bone lesion. Chest wall is unremarkable. Upper abdomen: Possible calcified gallstones. Numerous splenic calcified granulomata. Localizer images: No additional findings. 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 Tin Jose DO documented in this encounterTrihealth Mccull[facility]09-16-2024 History of Present illness Narrative* Mikala Jones MD - 12/15/2023 9:30 AM EDT HPB SURGERY PROGRESS NOTE Subjective INTERVAL HISTORY [...] will plan for adjuvant systemic therapy at [place] --Surveillance CT scan and follow-up with me 3 months after treatment Zara Jones MD B Surgeon documented in this encounterTrihealth Mccull[facility]09-16-2024 [facility]09-12-2024 [facility]09-07-2024 [facility]09-06-2024 [facility]09-05-2024 [facility]09-05-2024 [facility]09-04-2024 Note [facility]09-03-2024 [facility] 12-02-2023 [facility]09-02-2024 [facility]08-31-2024 [facility]08-30-2024 [facility]29[facility]20[facility]08-28-2024 [facility]28-2024 Note [facility]08-28-2024 [facility] 11-26-2023 [facility]20[facility]-27-2024 [facility]08-27-2024 [facility]08-26-2024 [facility]08-[facility]-2024 [facility]08-24-2024 [facility]08-23-2024 Note [facility]08-23-2024 NoteHNO ID: [id number] Author: ZENY KOLB RN Service: Nursing Author Type: Registered Nurse Type: Nursing Progress Note Filed: 11/21/2023 18:23 Note Text: Dr. Sexton at bedside and aware of bp. No new ordersRumford [facility] Hospital08-23-2024 [facility]08-23-2024 [facility]08-22-2024 NoteHNO ID: [id number] Author: MICHAEL LOERA RN Service: Care Management Author Type: Registered Nurse Type: Care Mgt Progress Note Filed: 11/20/2023 11:29 Note Text: CARE MANAGEMENT DISCHARGE NOTE SERVICE DATE: November 20, 2023 SERVICE TIME: 11:28 AM Admission Date: 11/18/2023 LOS: 2 days Discharge Arrangement Pt discharged to [facility] this date. Services Arranged None needed. Provider Name: Dr. Joe Tim Caregiver Assessment Pt from home with . Transportation Arrangements 2M set up transportation. Handoff Communication: Summary of care sent to PCP, GI, and general surgery. Additional Information: Pt discharged to [facility] this . No noted needs. Case closed. SIGNATURE: Michael Loera RN PATIENT NAME: Marie Blair DATE: November 20, 2023 TIME: 11:27 AM CONTACT #: [phone] Community Hospital08-21-2024 NoteHNO ID: [id number] Author: MAREN GUERRERO APRN.CNP Service: Gastroenterology Author Type: Nurse Practitioner Type: Plan of Care Filed: 11/19/2023 16:29 Note Text: DEPARTMENT OF GASTROENTEROLOGY AND HEPATOLOGY [facility] INPATIENT VISIT DATE AND TIME 11/19/23 4:26 PM PLAN OF CARE PATIENT NAME: Marie Blair Interval History: MRCP results reviewed. Discussed with Dr. Leary. Patient will be scheduled for ERCP tomorrow. NPO after midnight. Orders placed. Recommendation for surgery to follow-up. order builder indomethacin ordered to OR. Patient is on [...] upstream biliary ductal dilation. SIGNATURE: Maren Guerrero APRN.[facility]08-21-2024 NoteHNO ID: [id number] Author: SHERRILL MCCONNELL MD Service: Hospital Medicine Author Type: Physician Type: Progress Notes Filed: 11/19/2023 18:58 Note Text: Addendum: MRCP showed cholelithiasis with masslike irregular thickening of bladder wall suspicious for gallbladder cancer. Surgical team has called the [facility] for transfers and that hepatobiliary surgeon and patient got accepted. Ending bed at [facility]. INPATIENT PROGRESS NOTE SERVICE DATE: 11/19/2023 HOSPITAL [...] gallstones and thickened gallbladder wall transferred to [facility] for further management and plan. Acute cholecystitis Choledocholithiasis Fatty liver -Complains of 3 weeks history of right upper quadrant intermittent achy abdominal pain ultrasound of the abdomen was obtained and showed fatty liver, multiple gallstones and thickened gallbladder wall with pericholecystic fluid, dilated common duct with calculus in the common bile duct. -Liver function test are unremarkable -Transferred to [facility] for further management -Oncology recommended MRCP which [...] Dose Route Frequency Last Action Ordered Stop 11/18/23 2230 aspirin, enteric coated 81 mg tab(s) 81 mg ORAL DAILY Ordered (more content not included)...[facility] 11-19-2023 NoteHNO ID: [id number] Author: HANK COCHRAN RN Service: ? Author Type: Registered Nurse Type: Nursing Progress Note Filed: 11/19/2023 10:10 Note Text: MRI screening form faxed.[facility]08-21-2024 NoteHNO ID: [id number] Author: SONIA VEE RT(R) Service: ? Author Type: Technologist Type: Progress Notes Filed: 11/19/2023 09:36 Note Text: Summary: MRI RADIOLOGY SERVICE PROGRESS NOTE DATE OF SERVICE: November 19, 2023 TIME OF SERVICE: 934 EVENT: EXAM/PROCEDURE NOT COMPLETED - NEED MRI SCREENING FORM FILLED OUT AND FAXED TO MRI ADDITIONAL EVENT DETAILS: SIGNATURE: RT Cele(Zoya) PATIENT NAME: Marie Blair DATE: November 19, 2023 TIME: 9:35 AM PAGER/CONTACT #:[facility]08-21-2024 NoteHNO ID: [id number] Author: ESTRELLA GRACE RN Service: Care Management Author Type: Registered Nurse Type: Care Mgt Initial Assessment Filed: 11/19/2023 11:32 Note Text: CARE MANAGEMENT: ASSESSMENT AND DISCHARGE PLAN SERVICE DATE: November 19, 2023 SERVICE TIME: 924 PCP: Trever Billings MD, MD Primary Contact: Extended Emergency Contact Information Primary Emergency Contact: Blair Shiv [place] Relation: Spouse Secondary Emergency Contact: Ruddy Blair [place] Relation: Son Admission Status: Inpatient Insurance Provider: MEDICARE A AND B Discharge Planning requested by: Per Department Practice Potential Transition Plans Home Advance Directives Current Advance Directive: Health Care Power of Concession Supervisor;Living Will In Chart: No Current Living Arrangements and Support Lives with: Spouse/significant other Type of Residence: Private Residence (House) Does the patient have to climb stairs at home?: No Support: Children, Spouse/significant other How do you manage to accomplish the following: Independent: Ambulation;Bathe/Shower;Dress;Meals/Meal Prep;Going to the bathroom;Medication Management;Transportation to appointments/community Current Services/Equipment Current Post-Acute Service(s): None Discharge Planning Patient Goal(s): Be able to go home, General wellness [place] of Choice Explained: Are you interested in [...] with choledocholithiasis. NPO. Surgery and GI consulted. IV Zosyn. Pt from home with , normally independent with ADLs, drives and has no DME at home. Pt is current with Dr. Tim in [place]. D/C plan is home with . Denies [...] were you homeless or living in a long term (including now)?: No Utilities In the past 12 months has the Let, gas, oil, or water Thwapr threatened to shut off services in your home?: No Social Information Financial Resources: Retired SIGNATURE: Estrella Grace RN PATIENT NAME: Marie Blair DATE: November 19, 2023 TIME: 11:24 AM CONTACT #: [id number] Community Hospital01-10-2023 Instructions * Patient Instructions* Darrell Holland MD - 04/09/2022 10:50 AM EST Continue: Systane Complete solution instill 1 drop 3 times daily Both Eyes. If you have any questions please contact our office at [phone]. After office hours or on the weekend, please call Dr. Holland on his cell phone at [phone]. documented in this encounterTrihealth Mccull[facility]01-10-2023 History of Present illness Narrative* Darrell Holland MD - 04/09/2022 10:49 AM EST ASSESSMENT/PLAN: 1. Fuchs' corneal dystrophy of both [...] to monitor with primary care physician. Darrell Holland MD I have confirmed and [...] diagnosis, and treatment options. documented in this encounterTrihealth Mccull[facility]06-11-2022 Instructions* Patient Instructions* Darrell Holland MD - 09/08/2021 10:49 AM [...] ophthalmic suspension Use 1 Drop in the righteye four times daily. Continue: Systane Complete solution instill 1 drop 3 times daily Both Eyes. Continue post-operative care with Dr. Melara. If you have any questions please contact our office at [phone]. After office hours or on the weekend, please call Dr. Holland on his cell phone at [phone]. documented in this encounterTrihealth Mccull[facility]06-11-2022 History of Present illness Narrative* Darrell Holland MD - 09/08/2021 10:46 AM EDT ASSESSMENT/PLAN: 1. Status post cataract extraction and [...] ophthalmic suspension Use 1 Drop in the righteye four times daily. Continue: Systane Complete solution [...] diagnosis, and treatment options. documented in this encounterTrihealth Mccull[facility]06-10-2022 Hospital Discharge instructions* Discharge Instr - Other Orders* Darrell Holland MD - 09/07/2021 10:52 AM [...] Most people do not need oral pain medicine.If you do have some eye pain or [...] soup, black coffee, plain gelatin, and oneal robb.Eat a regular meal when you do not feel sick. Do not drink alcoholic beverages for 24 hours after the surgery. Eye medications - If you have been prescribed or given eye drops and/or ointment, please bring them, this handout and any previous eye drops/ointments you have to your follow up appointment. Your eyemedications will be explained during your follow up [...] any questions please contact our office at [phone]. After office hours or on the weekend, please call Dr. Holland on his cell phone at [phone]. documented in this encounterTrihealth Mccull[facility]06-10-2022 Miscellaneous Notes* Operative Report - Darrell Holland MD - 09/07/2021 9:54 AM EDT [place] [address] [facility] OPERATIVE REPORT LOG ID: [id number] Surgery/Procedure Date: 09/07/2021 Incision/Procedure Start Time: 10:03 AM Incision Close/Procedure End Time: 10:15 AM NAME: Marie Blair [facility] #: [id number] Surgeon(s)/Proceduralist(s) and Investigative Assistant(s): Surgeon(s) and Role: * Darrell Holland [...] circular continuous tear capsulorrhexis was made by usingcoaxial capsulorrhexis process. Hydrodissection and hydrodelineation of the [...] was then rotated until the optic was w ell centered. The residual viscoelastic was then removed [...] Implant Name Type Inv. Item Serial No. Road Consultant Lot No. LRB Model Num No. Used LENS ACRYSOF IQ +16 DIOPTER 0 D BICONVEX ACRYLIC 13MM IOL 1 PIECE FOLDABLE - [id number] IntraocularLens LENS ACRYSOF IQ +16 DIOPTER 0 D BICONVEX ACRYLIC 13MM IOL 1 PIECE FOLDABLE [id number] [employer] Right [id number] 16.0 1 Estimated Blood Loss: None Specimens: None Drains: None Complications: None Participation: I/primary surgeon/proceduralist performed the entire procedure. Darrell Holland M..D. 09/07/2021 , 10:53 AM documented in this encounterTrihealth Mccullough-[facility]06-10-2022 History and physical note * Darrell Holland MD - 09/07/2021 9:21 AM EDT UPDATED HISTORY AND PHYSICAL EXAMINATION SERVICE DATE: 09/07/2021 SERVICE TIME: 9:21 AM PHYSICAL EXAM MUST BE COMPLETED ON ADMISSION The History and Physical (completed in the past 30 days) has been reviewed and the patient has beenexamined. The contents accurately reflect the patient's condition with the following additions or revisions since the H&P was completed. Examination indicates no changes. This H&P can be found in the Electronic Medical Record dated 08-31-21. SIGNATURE: Darrell Holland MD PATIENT NAME: Marie Blair DATE: September 07, 2021 TIME: 9:21 AM * Darrell Holland MD - 08/31/2021 2:37 PM EDT HISTORY AND PHYSICAL EXAMINATION SERVICE DATE: 08/31/2021 [...] ophthalmic suspension Use 1 Drop in the righteye four times daily. Please bring unopened medication [...] dialysis. No history of symptoms or problems. [facility]: Negative for abnormal vaginal bleeding, abnormal vaginal [...] known pertinent medical condition which may affect brenda- operative course Clinical Risk Factors for Possible Cardiac [...] 2:37 PM PAGER/CONTACT #: documented in this encounterTrihealth Mccullough-[facility]06-07-2022 Nurse Note* Perry Calvert RN - 09/04/2021 12:31 PM EDT Pre-op Call completed. Pt states that this is her second procedure with us. Pt instructed to take blood pressure pill the morning of procedure with a small sip of water. Pt instructed to call with any questions, and informed that staff will call with an arrival time. documented in this encounterTrihealth Mccullough-[facility]06-03-2022 History and physical note * Darrell Holland MD - 08/31/2021 2:37 PM EDT HISTORY AND PHYSICAL EXAMINATION SERVICE DATE: 08/31/2021 [...] hypertension History of TIA (transient ischemic attack) 2011 Hypercholesteremia PAST SURGICAL HISTORY Procedure Laterality Date [...] ophthalmic suspension Use 1 Drop in the righteye four times daily. Please bring unopened medication [...] dialysis. No history of symptoms or problems. [facility]: Negative for abnormal vaginal bleeding, abnormal vaginal [...] known pertinent medical condition which may affect brenda- operative course Clinical Risk Factors for Possible Cardiac [...] 2:37 PM PAGER/CONTACT #: documented in this encounterTrihealth Mccullough-[facility]06-03-2022 Instructions* Patient Instructions* Darrell Holland MD - 08/31/2021 2:33 PM [...] any questions please contact our office at [phone]. After office hours or on the weekend, please call Dr. Holland on his cell phone at [phone]. documented in this encounterTrihealth Mccullough-[facility]06-03-2022 History of Present illness Narrative* Darrell Holland MD - 08/31/2021 2:29 PM EDT ASSESSMENT/PLAN: 1. Combined form of age-related [...] Testing: Right Eye Medium 20/80 Visual Function: Marei Blair states that the decline in vision [...] basic Intraocular lens right eye 09/07/2021 at [facility]. Patient wishes to have cataract surgery with the option stated above. Patient understands that an intraocular lens implant does not necessarily replace the need for glasses. Patient understands that it is impossible for the surgeon to inform him/her of every possible complicationthat may occur. The surgeon has answered all [...] all near and intermediate vision including reading andcomputer work. He/she declines monovision. He/she was offered [...] diagnosis, and treatment options. documented in this encounterTrihealth Mccullough-[facility]06-03-2022 History of Past illness Narrative* Problem Noted Date Resolved Date Status post cataract extract ion and insertion of intraocular lens of left eye 08/31/2021 04/09/2022 Combined form of age-related cataract, right eye 08/07/2021 09/07/2021 Combined form of age-related cataract, left eye 08/07/2021 08/31/2021 documented as of this encounter (statuses as of 04/09/2022) [facility]06-02-2022 NotePost Operative Note: Post-Procedure Diagnosis: 1. Combined Form Age Related Cataract Left Eye Procedure: 1. Cataract Extraction with Intraocular Lens Implant Left Eye Surgeon: Darrell Holland MD Resident/Fellow/Other Investigative Assistant: None Estimated Blood Loss (mL): none [...] Completion Last Updated: 30-Aug-2021 12:42 by Darrell Holland)[facility] 08-30-2021 NoteHistory & Physical Reviewed: I [...] Completion Last Updated: 30-Aug-2021 11:12 by Darrell Holland)[facility] 08-21-2021 Instructions* Patient Instructions* Darrell Holland MD - 08/21/2021 11:06 AM EDT Current Ophthalmic Meds fluorometholone (FML LIQUID FILM) 0.1 % ophthalmic suspension Use 1 Drop in both eyes three times daily. propylene glycoL (SYSTANE COMPLETE) 0.6 % drop Use 1 Drop in both eyes three times daily. If you have any questions please contact our office at [phone]. After office hours or on the weekend, please call Dr. Holland on his cell phone at [phone]. documented in this encounterTrihealth Mccullough-[facility]05-24-2022 History of Present illness Narrative* Darrell Holland [...] as other activities of daily living. Marie Carrizales Yenifer has confirmed that she is no longer [...] surgery with lens implantation were discussed with Maire Sofie Blair in detail. she appeared to understand [...] Intraocular lens left eye on August at [facility]. Patient wishes to have cataract surgery [...] diagnosis, and treatment options. documented in this encounterTrihealth Mccullough-[facility]05-10-2022 History of Past illness Narrative* Problem Noted Date Resolved Date Combined form of age-related cataract, left eye 08/07/2021 08/31/2021 documented as of this encounter (statuses as of 08/31/2021) [facility]05-[facility] History of Past illness Narrative* Problem Noted Date Resolved Date Combined form of age-related cataract, right eye 08/07/2021 09/07/2021 Combined form of age-related cataract, left eye 08/07/2021 08/31/2021 documented as of this encounter (statuses as of 09/08/2021) [facility]05-10-20[facility] History of Past illness Narrative* Problem Noted Date Resolved Date Combined form of age-related cataract, right eye 08/07/2021 09/07/2021 Combined form of age-related cataract, left eye 08/07/2021 08/31/2021 documented as of this encounter (statuses as of 09/08/2021) [facility]05-10-2022 Instructions* Patient Instructions* Darrell Holland MD - 08/07/2021 10:23 AM EDT Use medications as directed: Current Ophthalmic Meds fluorometholone (FML LIQUID FILM) 0.1 % ophthalmic suspension Use 1 Drop in both eyes three times daily. propylene glycoL (SYSTANE COMPLETE) 0.6 % drop Use 1 Drop in both eyes three times daily. Surgery is scheduled for 08/30/2021 left eye at [facility] If you have any questions please contact our office at [phone]. After office hours or on the weekend, please call Dr. Holland on his cell phone at [phone]. [facility] History of Present illness Narrative* Darrell Holland [...] surgery with basic Intraocular lens left eye [facility] Patient wishes to have cataract surgery [...] physician Darrell Holland MD documented in this encounterTri[facility]* Diagnosis Combined form of age-related cataract, right eye- Primary Combined form of age-related cataract, left eye Fuchs' corneal dystrophy of both eyes Punctate keratitis, bilateral Essential hypertension Unspecified essential hypertension [facility] Combined form of age-related cataract, left eye- Primary Combined form of age-related cataract, right eye Fuchs' corneal dystrophy of both eyes Punctate keratitis, bilateral Essential hypertension Unspecified essential hypertension Combined forms of age-related cataract of left eye Other and combined forms of senile cataract [facility] Diagnosis Combined forms of age-related cataract of right eye- Primary Other and combined forms of senile cataract [facility]* Diagnosis Combined form of age-related cataract, right eye- Primary Status post cataract extraction and insertion of intraocular lens of left eye Fuchs' corneal dystrophy of both eyes Essential hypertension Unspecified essential hypertension Combined forms of age-related cataract of right eye Other and combined forms of senile cataract [facility] Diagnosis Combined form of age-related cataract, right eye [facility]* Diagnosis Status post cataract extraction and insertion of intraocular lens of right eye- Primary Status post cataract extraction and insertion of intraocular lens of left eye [facility] Diagnosis Fuchs' corneal dystrophy of both eyes- Primary Nevus of choroid of right eye Pseudophakia of both eyes Lens replaced by other means Essential hypertension Unspecified essential hypertension Hypercholesteremia Pure hypercholesterolemia [facility]* Diagnosis Adenocarcinoma of gallbladder (HCC)- Primary Malignant neoplasm of gallbladder [facility] [place] [facility]* Diagnosis Adenocarcinoma of gallbladder (HCC)- Primary Malignant neoplasm of gallbladder [facility]* Diagnosis Gallbladder cancer (HCC)- Primary Malignant neoplasm of gallbladder [facility] Diagnosis Gallbladder cancer (HCC)- Primary Malignant neoplasm of gallbladder Anemia, unspecified type 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 [facility]* [...] neoplasm of gallbladder documented in this encounter [facility] [place] [facility]* Diagnosis Gallbladder cancer (HCC)- Primary Malignant neoplasm of gallbladder documented in this encounter [facility] [place] [facility]* Diagnosis Gallbladder cancer (HCC)- Primary Malignant neoplasm of gallbladder [facility] [place] [facility]* Diagnosis Gallbladder cancer (HCC) Malignant neoplasm of gallbladder [facility] [place] [facility]* Diagnosis Gallbladder cancer (HCC)- Primary Malignant neoplasm of gallbladder Pelvic cyst in female Abnormal CT scan, pelvis Nonspecific (abnormal) findings on radiological and other examination of abdominal area, including retroperitoneum documented in this encounter [facility] [place] [facility]* Diagnosis Gallbladder cancer (HCC) Malignant neoplasm of gallbladder Pelvic cyst in female Abnormal CT scan, pelvis Nonspecific (abnormal) findings on radiological and other examination of abdominal area, including retroperitoneum [facility] [place] [facility]* Diagnosis Gallbladder cancer (HCC) Malignant neoplasm of gallbladder documented in this encounter [facility] [place] [facility]* Diagnosis Gallbladder cancer (HCC)- Primary Malignant neoplasm of gallbladder [facility] [place] [facility]* Diagnosis Gallbladder cancer (HCC)- Primary Malignant neoplasm of gallbladder documented in this encounter [facility] [place] [facility]* Diagnosis Gallbladder cancer (HCC)- Primary Malignant neoplasm of gallbladder documented in this encounter [facility] [place] [facility]* Diagnosis 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)- Primary documented in this encounter [facility] [place] [facility]* Diagnosis 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) documented in this encounter [facility] [place] [facility]* Diagnosis Gallbladder cancer (HCC)- Primary Malignant neoplasm of gallbladder documented in this encounter [facility] [place] noteNo assessment information availableWSelect Medical [facility] Work Phone: Evaluation note* Diagnosis Gallbladder cancer (HCC) Malignant neoplasm of gallbladder documented in this encounter [facility] [place] [facility]* Diagnosis 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 documented in this encounter [facility] [place] [facility]* Diagnosis Ovarian cyst, left- Primary Other and unspecified ovarian cyst documented in this encounter [facility] [place] [facility]* Diagnosis 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 documented in this encounter [facility] [place] [facility]* Diagnosis 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 documented in this encounter [facility] note* Diagnosis Choledocholithiasis- Primary Calculus of bile duct without mention of cholecystitis or obstruction documented in this encounter [facility] note* Diagnosis Essential hypertension- Primary Unspecified essential hypertension History of TIA (transient ischemic attack) Transient ischemic attack (TIA), and cerebral infarction without residual deficits Pre-op testing Preoperative examination, unspecified Choledocholithiasis Calculus of bile duct without mention of cholecystitis or obstruction Gallbladder cancer (HCC)- Primary Malignant neoplasm of gallbladder documented in this encounter [facility] note* Diagnosis Essential hypertension- Primary Unspecified essential hypertension History of TIA (transient ischemic attack) Transient ischemic attack (TIA), and cerebral infarction without residual deficits Pre-op testing Preoperative examination, unspecified Choledocholithiasis Calculus of bile duct without mention of cholecystitis or obstruction Choledocholithiasis Calculus of bile duct without mention of cholecystitis or obstruction documented in this encounter [facility] for referral (narrative)* Diagnostic Procedure Only (Routine) - Authorized Specialty Diagnoses / Procedures Referred By Contac t Referred To Contact [facility] Diagnoses Gallbladder cancer (HCC) Pelvic cyst in female Abnormal CT scan, pelvis Procedures US FEMALE PELVIS TRANSVAG US TRANSVAGINAL Denice Orozco APRN.CEREAL MAKER [address] [place] [address] [place] [address] Referral ID Status Reason Start Date Expiration Date Visits Requested Visits Authorized [id number] Authorized Auto-Generat ed Referral 2024 05/23/2025 1 1 * Diagnostic Procedure Only (Routine) - Authorized Specialty Diagnoses / Procedures Referred By Contac t Referred To Contact [facility] Diagnoses Gallbladder cancer (HCC) Pelvic cyst in female Abnormal CT scan, pelvis Procedures US FEMALE PELVIS TRANSABD LTD US PELVIC NONOBSTETRIC IMAGE DCMTN LIMITED/F/U Denice Orozco APRN.CEREAL MAKER [address] [place] [address] [place] [address] Referral ID Status Reason Start Date Expiration Date Visits Requested Visits Authorized [id number] Authorized Auto-Generat ed Referral 2024 05/23/2025 1 1 [facility] for referral (narrative)No reason for referral information availableWSelect Medical [facility] Work Phone: Reason for visit Narrative* MRI/CT (Routine) - Closed Specialty Diagnoses / Procedures Referred By Contac t Referred To Contact [facility] Diagnoses 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) Procedures MRI FEMALE PELVIS WO/W IVCON MRI PELVIS W/O & W/CONTRAST MATERIAL Taty Velazquez GRADES 9 12 TUTOR.CEREAL MAKER [address] [place] [address] Phone: tel: fax: [place] [address] Referral ID Status Reason Start Date Expiration Date V isits Requested Visits Authorized [id number] Closed Auto-Generate d Referral 06/08/2024 07/08/2025 1 1 [facility] for visit Narrative* MRI/CT (Routine) - Closed Specialty Diagnoses / Procedures Referred By Contac t Referred To Contact CT IMAGING Diagnoses Gallbladder cancer (HCC) Procedures CT CHEST W IVCON DIAGNOSTIC COMPUTED TOMOGRAPHY THORAX W/CONTRAST Denice Orozco APRN.CEREAL MAKER [address] [place] [address] Phone: tel: fax: [place] [address] Referral ID Status Reason Start Date Expiration Date V isits Requested Visits Authorized [id number] Closed Auto-Generate d Referral 07/05/2024 07/22/2025 1 1 [facility] for visit Narrative* MRI/CT (Routine) - Closed Specialty Diagnoses / Procedures Referred By Contac t Referred To Contact CT IMAGING Diagnoses Cholangiocarcinoma (HCC) Procedures CT ABD/PEL W IVCON CT ABD & PELVIS W/CONTRAST Tin Jose DO [address] [place] [address] Phone: tel: fax: [place] [address] Referral ID Status Reason Start Date Expiration Date V isits Requested Visits Authorized [id number] Closed Auto-Generate d Referral 07/14/2024 08/13/2025 1 1 [facility] Narrative* Outpatient Procedure (Routine) - Closed Specialty Diagnoses / Procedures Referred By Contaliyah t Referred To Contact [facility] Diagnoses Choledocholithiasis Procedures ERCP ERCP BILIARY/PANC DUCT STENT EXCHANGE W/DIL&WIRE Stacy Santamaria MD [address] [place] [address] Phone: tel: fax: [facility] [address] [place] [address] Referral ID Status Reason Start Date Expiration Date V isits Requested Visits Authorized [id number] Closed Auto-Generate d Referral 10/26/2024 10/26/2025 1 1 [facility] Summary Purpose Family History Relationship Condition Age at Onset Recorded Date/T ilsa mother Cerebrovascular accident (CVA) Unknown Hypertension Unknown father Coronary artery disease Unknown Cardiac disease Unknown Myocardial infarction Unknown Advance Directives Date Activated Date Inactivated Comments 11/20/2023 12:43 PM 12/06/2023 2:06 PM Question Answer Comments Full Code Order Discussed With: Patient Date Activated Date Inactivated Comments 11/20/2023 12:09 PM 11/20/2023 12:43 PM Question Answer Comments Full Code Order Discussed With: Patient Documents on File Type Date Recorded 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 Yes November 10, 2024 5:15pm Medications Administered Section Active Administered Medications - [...] the event of a Fluress shortage, administer [place]-Fluor 1 drop into both eyes as directed [...] Referred By Rena t Referred To Contact CT IMAGING Diagnoses Gallbladder cancer (HCC) Procedures CT CHEST W IVCON DIAGNOSTIC COMPUTED TOMOGRAPHY THORAX W/CONTRAST Denice Orozco, DAVEY.CEREAL MAKER [address] [place] [address] [place] [address] Referral ID Status Reason Start Date Expiration Date Visits Requested Visits Authorized [id number] Authorized Auto-Generat ed Referral 04/02/2024 05/02/2025 1 1 Specialty Diagnoses / Procedures Referred By Rena valenzuela Referred To Contact CT IMAGING Diagnoses Gallbladder cancer (HCC) Procedures CT ABD/PEL W IVCON CT ABD & PELVIS W/CONTRAST Denice Orozco APRN.CEREAL MAKER [address] [place] [address] [place] [address] Referral ID Status Reason Start Date Expiration Date Visits Requested Visits Authorized [id number] Authorized Auto-Generat ed Referral 04/19/2024 05/02/2025 1 1 Chief Complaint and Reason for Visit Chief Complaint Admit Date POST MENOPAUSAL June 02, 2024 8:29 am Chief Complaint Admit Date JAUNDICE & ABDOMINAL PAIN AFTER ERCP WIT H November 11, 2024 2:52am Additional Source Comments INFORMATION SOURCE (unrecogn ized section and content) DATE CREATED AUTHOR 08/15/2018 [facility] DATE CREATED AUTHOR AUTHOR'S ORGANIZ ATION 11/25/[address] [facility] DATE CREATED AUTHOR AUTHOR'S ORGANIZ ATION 12/27/2020 [facility] DATE CREATED AUTHOR AUTHOR'S ORGANIZ ATION 12/28/2020 [facility] DATE CREATED AUTHOR AUTHOR'S ORGANIZ ATION 03/30/2022 [facility] DATE CREATED AUTHOR AUTHOR'S ORGANIZ ATION 06/21/2022 [facility] DATE CREATED AUTHOR AUTHOR'S ORGANIZ ATION 11/22/2023 [facility] DATE CREATED AUTHOR AUTHOR'S ORGANIZ ATION 11/02/2024 [facility] DATE CREATED AUTHOR AUTHOR'S ORGANIZ ATION 11/09/2024 [facility] DATE CREATED AUTHOR AUTHOR'S ORGANIZ ATION 11/10/2024 [facility] Source Comments (unrecognize d section and content) In the event this informatio n is protected by the Federal Confidentiality of Alcohol and Drug Abuse Patient Records regulations: The Federal rules restrict any use of the information to criminally investigate or prosecute any alcohol or drug abuse patient.[facility] HospitalIn the event this information is protected by the Federal Confidentiality of Alcohol and Drug Abuse Patient Records regulations: The Federal rules restrict any use of the information to criminally investigate or prosecute any alcohol or drug abuse patient.[facility] HospitalIn the event this information is protected by the Federal Confidentiality of Alcohol and Drug Abuse Patient Records regulations: The Federal rules restrict any use of the information to criminally investigate or prosecute any alcohol or drug abuse patient.[facility] HospitalIn the event this information is protected by the Federal Confidentiality of Alcohol and Drug Abuse Patient Records regulations: The Federal rules restrict any use of the information to criminally investigate or prosecute any alcohol or drug abuse patient.[facility] HospitalIn the event this information is protected by the Federal Confidentiality of Alcohol and Drug Abuse Patient Records regulations: The Federal rules restrict any use of the information to criminally investigate or prosecute any alcohol or drug abuse patient.[facility] HospitalIn the event this information is protected by the Federal Confidentiality of Alcohol and Drug Abuse Patient Records regulations: The Federal rules restrict any use of the information to criminally investigate or prosecute any alcohol or drug abuse patient.[facility] HospitalIn the event this information is protected by the Federal Confidentiality of Alcohol and Drug Abuse Patient Records regulations: The Federal rules restrict any use of the information to criminally investigate or prosecute any alcohol or drug abuse patient.[facility] HospitalIn the event this information is protected by the Federal Confidentiality of Alcohol and Drug Abuse Patient Records regulations: The Federal rules restrict any use of the information to criminally investigate or prosecute any alcohol or drug abuse patient.[facility] HospitalIn the event this information is protected by the Federal Confidentiality of Alcohol and Drug Abuse Patient Records regulations: The Federal rules restrict any use of the information to criminally investigate or prosecute any alcohol or drug abuse patient.[facility] HospitalIn the event this information is protected by the Federal Confidentiality of Alcohol and Drug Abuse Patient Records regulations: The Federal rules restrict any use of the information to criminally investigate or prosecute any alcohol or drug abuse patient.[facility] HospitalIn the event this information is protected by the Federal Confidentiality of Alcohol and Drug Abuse Patient Records regulations: The Federal rules restrict any use of the information to criminally investigate or prosecute any alcohol or drug abuse patient.[facility] HospitalIn the event this information is protected by the Federal Confidentiality of Alcohol and Drug Abuse Patient Records regulations: The Federal rules restrict any use of the information to criminally investigate or prosecute any alcohol or drug abuse patient.[facility] HospitalIn the event this information is protected by the Federal Confidentiality of Alcohol and Drug Abuse Patient Records regulations: The Federal rules restrict any use of the information to criminally investigate or prosecute any alcohol or drug abuse patient.[facility] HospitalIn the event this information is protected by the Federal Confidentiality of Alcohol and Drug Abuse Patient Records regulations: The Federal rules restrict any use of the information to criminally investigate or prosecute any alcohol or drug abuse patient.[facility] HospitalIn the event this information is protected by the Federal Confidentiality of Alcohol and Drug Abuse Patient Records regulations: The Federal rules restrict any use of the information to criminally investigate or prosecute any alcohol or drug abuse patient.[facility] HospitalIn the event this information is protected by the Federal Confidentiality of Alcohol and Drug Abuse Patient Records regulations: The Federal rules restrict any use of the information to criminally investigate or prosecute any alcohol or drug abuse patient.[facility] HospitalIn the event this information is protected by the Federal Confidentiality of Alcohol and Drug Abuse Patient Records regulations: The Federal rules restrict any use of the information to criminally investigate or prosecute any alcohol or drug abuse patient.[facility] HospitalIn the event this information is protected by the Federal Confidentiality of Alcohol and Drug Abuse Patient Records regulations: The Federal rules restrict any use of the information to criminally investigate or prosecute any alcohol or drug abuse patient.[facility] HospitalIn the event this information is protected by the Federal Confidentiality of Alcohol and Drug Abuse Patient Records regulations: The Federal rules restrict any use of the information to criminally investigate or prosecute any alcohol or drug abuse patient.[facility] HospitalIn the event this information is protected by the Federal Confidentiality of Alcohol and Drug Abuse Patient Records regulations: The Federal rules restrict any use of the information to criminally investigate or prosecute any alcohol or drug abuse patient.[facility] HospitalIn the event this information is protected by the Federal Confidentiality of Alcohol and Drug Abuse Patient Records regulations: The Federal rules restrict any use of the information to criminally investigate or prosecute any alcohol or drug abuse patient.[facility] HospitalIn the event this information is protected by the Federal Confidentiality of Alcohol and Drug Abuse Patient Records regulations: The Federal rules restrict any use of the information to criminally investigate or prosecute any alcohol or drug abuse patient.[facility] HospitalIn the event this information is protected by the Federal Confidentiality of Alcohol and Drug Abuse Patient Records regulations: The Federal rules restrict any use of the information to criminally investigate or prosecute any alcohol or drug abuse patient.[facility] HospitalIn the event this information is protected by the Federal Confidentiality of Alcohol and Drug Abuse Patient Records regulations: The Federal rules restrict any use of the information to criminally investigate or prosecute any alcohol or drug abuse patient.[facility] HospitalIn the event this information is protected by the Federal Confidentiality of Alcohol and Drug Abuse Patient Records regulations: The Federal rules restrict any use of the information to criminally investigate or prosecute any alcohol or drug abuse patient.[facility] HospitalIn the event this information is protected by the Federal Confidentiality of Alcohol and Drug Abuse Patient Records regulations: The Federal rules restrict any use of the information to criminally investigate or prosecute any alcohol or drug abuse patient.[facility] HospitalIn the event this information is protected by the Federal Confidentiality of Alcohol and Drug Abuse Patient Records regulations: The Federal rules restrict any use of the information to criminally investigate or prosecute any alcohol or drug abuse patient.[facility] HospitalIn the event this information is protected by the Federal Confidentiality of Alcohol and Drug Abuse Patient Records regulations: The Federal rules restrict any use of the information to criminally investigate or prosecute any alcohol or drug abuse patient.[facility] HospitalIn the event this information is protected by the Federal Confidentiality of Alcohol and Drug Abuse Patient Records regulations: The Federal rules restrict any use of the information to criminally investigate or prosecute any alcohol or drug abuse patient.[facility] HospitalIn the event this information is protected by the Federal Confidentiality of Alcohol and Drug Abuse Patient Records regulations: The Federal rules restrict any use of the information to criminally investigate or prosecute any alcohol or drug abuse patient.[facility] HospitalIn the event this information is protected by the Federal Confidentiality of Alcohol and Drug Abuse Patient Records regulations: The Federal rules restrict any use of the information to criminally investigate or prosecute any alcohol or drug abuse patient.[facility] HospitalIn the event this information is protected by the Federal Confidentiality of Alcohol and Drug Abuse Patient Records regulations: The Federal rules restrict any use of the information to criminally investigate or prosecute any alcohol or drug abuse patient.[facility] HospitalIn the event this information is protected by the Federal Confidentiality of Alcohol and Drug Abuse Patient Records regulations: The Federal rules restrict any use of the information to criminally investigate or prosecute any alcohol or drug abuse patient.[facility] HospitalIn the event this information is protected by the Federal Confidentiality of Alcohol and Drug Abuse Patient Records regulations: The Federal rules restrict any use of the information to criminally investigate or prosecute any alcohol or drug abuse patient.[facility] HospitalIn the event this information is protected by the Federal Confidentiality of Alcohol and Drug Abuse Patient Records regulations: The Federal rules restrict any use of the information to criminally investigate or prosecute any alcohol or drug abuse patient.[facility] HospitalIn the event this information is protected by the Federal Confidentiality of Alcohol and Drug Abuse Patient Records regulations: The Federal rules restrict any use of the information to criminally investigate or prosecute any alcohol or drug abuse patient.[facility] HospitalIn the event this information is protected by the Federal Confidentiality of Alcohol and Drug Abuse Patient Records regulations: The Federal rules restrict any use of the information to criminally investigate or prosecute any alcohol or drug abuse patient.[facility] HospitalIn the event this information is protected by the Federal Confidentiality of Alcohol and Drug Abuse Patient Records regulations: The Federal rules restrict any use of the information to criminally investigate or prosecute any alcohol or drug abuse patient.[facility] HospitalIn the event this information is protected by the Federal Confidentiality of Alcohol and Drug Abuse Patient Records regulations: The Federal rules restrict any use of the information to criminally investigate or prosecute any alcohol or drug abuse patient.[facility] HospitalIn the event this information is protected by the Federal Confidentiality of Alcohol and Drug Abuse Patient Records regulations: The Federal rules restrict any use of the information to criminally investigate or prosecute any alcohol or drug abuse patient.[facility] HospitalIn the event this information is protected by the Federal Confidentiality of Alcohol and Drug Abuse Patient Records regulations: The Federal rules restrict any use of the information to criminally investigate or prosecute any alcohol or drug abuse patient.[facility] HospitalIn the event this information is protected by the Federal Confidentiality of Alcohol and Drug Abuse Patient Records regulations: The Federal rules restrict any use of the information to criminally investigate or prosecute any alcohol or drug abuse patient.[facility] HospitalIn the event this information is protected by the Federal Confidentiality of Alcohol and Drug Abuse Patient Records regulations: The Federal rules restrict any use of the information to criminally investigate or prosecute any alcohol or drug abuse patient.[facility] HospitalIn the event this information is protected by the Federal Confidentiality of Alcohol and Drug Abuse Patient Records regulations: The Federal rules restrict any use of the information to criminally investigate or prosecute any alcohol or drug abuse patient.[facility] HospitalIn the event this information is protected by the Federal Confidentiality of Alcohol and Drug Abuse Patient Records regulations: The Federal rules restrict any use of the information to criminally investigate or prosecute any alcohol or drug abuse patient.[facility] HospitalIn the event this information is protected by the Federal Confidentiality of Alcohol and Drug Abuse Patient Records regulations: The Federal rules restrict any use of the information to criminally investigate or prosecute any alcohol or drug abuse patient.[facility] HospitalIn the event this information is protected by the Federal Confidentiality of Alcohol and Drug Abuse Patient Records regulations: The Federal rules restrict any use of the information to criminally investigate or prosecute any alcohol or drug abuse patient.[facility] HospitalIn the event this information is protected by the Federal Confidentiality of Alcohol and Drug Abuse Patient Records regulations: The Federal rules restrict any use of the information to criminally investigate or prosecute any alcohol or drug abuse patient.[facility] HospitalIn the event this information is protected by the Federal Confidentiality of Alcohol and Drug Abuse Patient Records regulations: The Federal rules restrict any use of the information to criminally investigate or prosecute any alcohol or drug abuse patient.[facility] HospitalIn the event this information is protected by the Federal Confidentiality of Alcohol and Drug Abuse Patient Records regulations: The Federal rules restrict any use of the information to criminally investigate or prosecute any alcohol or drug abuse patient.[facility] HospitalIn the event this information is protected by the Federal Confidentiality of Alcohol and Drug Abuse Patient Records regulations: The Federal rules restrict any use of the information to criminally investigate or prosecute any alcohol or drug abuse patient.[facility] HospitalIn the event this information is protected by the Federal Confidentiality of Alcohol and Drug Abuse Patient Records regulations: The Federal rules restrict any use of the information to criminally investigate or prosecute any alcohol or drug abuse patient.[facility] HospitalIn the event this information is protected by the Federal Confidentiality of Alcohol and Drug Abuse Patient Records regulations: The Federal rules restrict any use of the information to criminally investigate or prosecute any alcohol or drug abuse patient.[facility] HospitalIn the event this information is protected by the Federal Confidentiality of Alcohol and Drug Abuse Patient Records regulations: The Federal rules restrict any use of the information to criminally investigate or prosecute any alcohol or drug abuse patient.[facility] HospitalIn the event this information is protected by the Federal Confidentiality of Alcohol and Drug Abuse Patient Records regulations: The Federal rules restrict any use of the information to criminally investigate or prosecute any alcohol or drug abuse patient.[facility] Reason for Visit (unrecogniz ed section and [...] Op Follow Up Drain removal Reason Comments 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 [...] CT ABD & PELVIS W/CONTRAST Denice Orozco, DAVEY.CEREAL MAKER [address] [place] [address] [place] [address] Referral ID Status Reason Start Date Expiration Date V isits Requested Visits Authorized [id number] Closed Auto-Generate d Referral 04/19/2024 05/02/2025 1 1 Specialty Diagnoses / Procedures Referred By Contac t Referred To Contact CT IMAGING Diagnoses Gallbladder cancer (HCC) Procedures CT ABD/PEL W IVCON CT ABD & PELVIS W/CONTRAST Denice Orozco APRN.CEREAL MAKER [address] [place] [address] [place] [address] Reason Onset Date Comments SPP Oral Oncology/hematology - Medication Refill 04/20/2024 capecitabine Reason Onset Date Comments SPP Oral Oncology/hematology - Medication Refill 04/26/2024 capecitabine Reason Comments Radiology US Specialty Diagnoses / Procedures [facility] Diagnoses Gallbladder cancer (HCC) Pelvic cyst in female Abnormal CT scan, pelvis Procedures US FEMALE PELVIS TRANSVAG US TRANSVAGINAL Denice Orozco APRN.CEREAL MAKER [address] [place] [place] [address] [place] [address] Referral ID Status Reason Start Date Expiration Date V isits Requested Visits Authorized [id number] Closed Auto-Generate d Referral 2024 05/23/2025 1 1 Reason Comments Refill Request Reason Onset Date Comments SPP Oral Oncology/hematology - Medication Refill 05/13/2024 capecitabine Reason Onset Date Comments SPP Oral Oncology/hematology - Medication Refill 05/31/2024 capecitabine Reason Comments Problem Visit Reason Onset Date Comments SPP Oral Oncology/hematology - Medication Refill 06/21/2024 Capecitabine Specialty Diagnoses / Procedures [facility] Diagnoses Gallbladder cancer (HCC) Procedures CT CHEST W IVCON DIAGNOSTIC COMPUTED TOMOGRAPHY THORAX W/CONTRAST Denice Orozco, DAVEY.CEREAL MAKER [address] [place] [address] Phone: tel: fax: [place] [address] Referral ID Status Reason Start Date Expiration Date V isits Requested Visits Authorized [id number] Closed Auto-Generate d Referral 07/05/2024 07/22/2025 1 1 Reason Onset Date Comments SPP Oral Oncology/hematology - Medication Refill 07/12/2024 capecitabine Reason Onset Date Comments Results 06/28/2024 Reason Comments Orders Specialty Diagnoses / Procedures 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 Relationship Specialty Start Date End Date Trever Billings [address] [place] [address] PCP - General Family Practice 08/01/21 Hot Repairman Relationship Specialty Start Date End Date Trever Billings [address] [place] [address] PCP - General Family Practice 08/01/21 Hot Repairman Relationship Specialty Start Date End Date Awa Trever Phelan [address] [place] [address] PCP - General Family Practice 08/01/21 Hot Repairman Relationship Specialty Start Date End Date AwaTrever Lily [address] [place] [address] PCP - General Family Practice 08/01/21 Hot Repairman Relationship Specialty Start Date End Date AwaTrever Lily [address] [place] [address] PCP - General Family Practice 08/01/21 Hot Repairman Relationship Specialty Start Date End Date HansmoniTrever ford Lily [address] [place] [address] PCP - General Family Practice 08/01/21 Hot Repairman Relationship Specialty Start Date End Date CastilloTrever ford Lily [address] [place] [address] PCP - General Family Medicine 08/01/21 Hot Repairman Relationship Specialty Start Date End Date Joe Tim MD [address] [facility] [address] [place], [place] [address] PCP - General Internal Medicine 11/19/23 Hot Repairman Relationship Specialty Start Date End Date Joe Tim MD [address] [facility] [address] [place] [address] PCP - General Internal Medicine 11/19/23 Hot Repairman Relationship Specialty Start Date End Date Joe Tim MD [address] [facility] [address] [place], [place] [id number] PCP - General Internal Medicine 11/19/23 Mikala Jones MD [address] [address] General Surgery 12/16/23 Tin Jose DO [address] [place], [place] [address] Hematology/Oncology 12/17/23 Teresa Moore, ALYCIA Specialty Return Agent [facility] Oncology 12/17/23 Hot Repairman Relationship Specialty Start Date End Date Joe Tim MD [address] [facility] [address] [place], [place] [address] PCP - General Internal Medicine 11/19/23 Mikala Jones MD [address] [address] General Surgery 12/16/23 Tin Jose DO [address] [place] [address] Hematology/Oncology 12/17/23 Teresa Moore RN Specialty Return Agent [facility] 12/17/23 Hot Repairman Relationship Specialty Start Date End Date Joe Tim MD [address] [facility] [address] [place] [address] PCP - General Internal Medicine 11/19/23 Mikala Jones MD [address] [id number] General Surgery 12/16/23 Hot Repairman Relationship Specialty Start Date End Date Joe Tim MD [address] [facility] [address] [place] [address] PCP - General Internal Medicine 11/19/23 Mikala Jones MD [address] [address] General Surgery 12/16/23 Tin Jose DO [address] [place] [address] Hematology/Oncology 12/17/23 Teresa Moore RN Specialty Return Agent [facility] 12/17/23 Hot Repairman Relationship Specialty Start Date End Date Joe Tim MD [address] [facility] [address] [place], [place] [address] PCP - General Internal Medicine 11/19/23 Mikala Jones MD [address] [address] General Surgery 12/16/23 Tin Jose DO [address] [place] [address] Hematology/Oncology 12/17/23 Teresa Moore RN Specialty Return Agent [facility] 12/17/23 Hot Repairman Relationship Specialty Start Date End Date Joe Tim MD [address] [facility] [address] [place] [address] PCP - General Internal Medicine 11/19/23 Mikala Jones MD [address] [id number] General Surgery 12/16/23 Tin Jose DO [address] [place], [place] [address] Hematology/Oncology 12/17/23 Teresa Moore RN Specialty Return Agent [facility] 12/17/23 Hot Repairman Relationship Specialty Start Date End Date Joe Tim MD [address] [facility] [address] [place], [place] [address] PCP - General Internal Medicine 11/19/23 Mikala Jones MD [address] [id number] General Surgery 12/16/23 Tin Jose DO [address] [place], [place] [address] Hematology/Oncology 12/17/23 Teresa Moore RN Specialty Return Agent [facility] 12/17/23 Hot Repairman Relationship Specialty Start Date End Date Joe Tim MD [address] [facility] [address] [place], [place] [id number] PCP - General Internal Medicine 11/19/23 Mikala Jones MD [address] [id number] General Surgery 12/16/23 Tin Jose DO [address] [place], [place] [id number] Hematology/Oncology 12/17/23 Teresa Moore RN Specialty Return Agent [facility] 12/17/23 Hot Repairman Relationship Specialty Start Date End Date Joe Tim MD [address] [address] PCP - General Internal Medicine 11/19/23 Mikala Jones MD [address] [id number] General Surgery 12/16/23 Tin Jose DO [address] [place], [place] [id number] Hematology/Oncology 12/17/23 Teresa Moore RN Specialty Return Agent [facility] 12/17/23 Hot Repairman Relationship Specialty Start Date End Date Joe Tim MD [address] [facility] [address] [place] [address] PCP - General Internal Medicine 11/19/23 Mikala Jones MD [address] [phone] General Surgery 12/16/23 Tin Jose DO [address] [place], [place] [id number] Hematology/Oncology 12/17/23 Teresa Moore RN Specialty Return Agent [facility] 12/17/23 Hot Repairman Relationship Specialty Start Date End Date Joe Tim MD [address] [facility] [address] [place], [place] [address] PCP - General Internal Medicine 11/19/23 Mikala Jones MD [address] [address] General Surgery 12/16/23 Tin Jose DO [address] [place] [address] Hematology/Oncology 12/17/23 Teresa Moore RN Specialty Return Agent [facility] 12/17/23 Hot Repairman Relationship Specialty Start Date End Date Joe Tim MD [address] [facility] [address] [place] [address] PCP - General Internal Medicine 11/19/23 Mikala Jones MD [address] [address] General Surgery 12/16/23 Tin Jose DO [address] [place] [address] Hematology/Oncology 12/17/23 Teresa Moore RN Specialty Return Agent [facility] 12/17/23 Hot Repairman Relationship Specialty Start Date End Date Joe Tim MD [address] [facility] [address] [place], [place] [address]381 PCP - General Internal Medicine 11/19/23 Mikala Jones MD [address] [address] General Surgery 12/16/23 Tin Jose DO [address] [place] [address] Hematology/Oncology 12/17/23 Teresa Moore RN Specialty Return Agent [facility] 12/17/23 Hot Repairman Relationship Specialty Start Date End Date Joe Tim MD [address] [facility] [address] [place], [place] [address] PCP - General Internal Medicine 11/19/23 Mikala Jones MD [address] [address] General Surgery 12/16/23 Tin Jose DO [address] [place], [place] [address] Hematology/Oncology 12/17/23 Teresa Moore RN Specialty Return Agent [facility] 12/17/23 Hot Repairman Relationship Specialty Start Date End Date Joe Tim MD [address] [facility] [address] [place] [address] PCP - General Internal Medicine 11/19/23 Mikala Jones MD [address] [phone] General Surgery 12/16/23 Tin Jose DO [address] [place] [address] Hematology/Oncology 12/17/23 Teresa Moore RN Specialty Return Agent [facility] 12/17/23 Hot Repairman Relationship Specialty Start Date End Date Joe Tim MD [address] [facility] [address] [place], [place] [address] PCP - General Internal Medicine 11/19/23 Mikala Jones MD [address] [phone] General Surgery 12/16/23 Tin Jose DO [address] [place], [place] [address] Hematology/Oncology 12/17/23 Teresa Moore RN Specialty Return Agent [facility] 12/17/23 Hot Repairman Relationship Specialty Start Date End Date Joe Tim MD [address] [facility] [address] [place] [address] PCP - General Internal Medicine 11/19/23 Mikala Jones MD [address] [phone] General Surgery 12/16/23 Tin Jose DO [address] [place] [address] Hematology/Oncology 12/17/23 Teresa Moore RN Specialty Return Agent [facility] 12/17/23 Hot Repairman Relationship Specialty Start Date End Date Joe Tim MD [address] [facility] [address] [place], [place] [address] PCP - General Internal Medicine 11/19/23 Mikala Jones MD [address] [phone] General Surgery 12/16/23 Tin Jose DO [address] [place], [place] [phone] Hematology/Oncology 12/17/23 Teresa Moore RN Specialty Return Agent [facility] 12/17/23 Hot Repairman Relationship Specialty Start Date End Date Joe Tim MD [address] [facility] [address] [place], [place] [phone] PCP - General Internal Medicine 11/19/23 Mikala Jones MD [address] [phone] General Surgery 12/16/23 Tin Jose DO [address] [place] [address] Hematology/Oncology 12/17/23 Teresa Moore RN Specialty Return Agent [facility] 12/17/23 Team Status: Active Member Role Status Dates Joe Tim MD Primary Care Provider Active Team Status: Inactive Member Role Status Dates Joe Tim MD Primary Care Provider Active St art: June 02, 2024 End: June 02, 2024 Joe Tim MD Attending Provider Active Start : June 02, 2024 End: June 02, 2024 Joe Tim MD Referring Provider Active Start : June 02, 2024 End: June 02, 2024 Hot Repairman Relationship Specialty Start Date End Date Joe Tim MD [address] [facility] [address] [place], [place] [phone] PCP - General Internal Medicine 11/19/23 Mikala Jones MD [address] [id number] General Surgery 12/16/23 Tin Jose DO [address] [place] [address] Hematology/Oncology 12/17/23 Teresa Moore RN Specialty Return Agent [facility] 12/17/23 Hot Repairman Relationship Specialty Start Date End Date Joe Tim MD [address] [facility] [address] [place] [address] PCP - General Internal Medicine 11/19/23 Mikala Jones MD [address] [phone] General Surgery 12/16/23 Tni Jose DO [address] [place] [address] Hematology/Oncology 12/17/23 Teresa Moore RN Specialty Return Agent [facility] 12/17/23 Hot Repairman Relationship Specialty Start Date End Date Joe Tim MD [address] [address] PCP - General Internal Medicine 11/19/23 Mikala Jones MD [address] [address] General Surgery 12/16/23 Tin Jose DO [address] [place], [place] [id number] Hematology/Oncology 12/17/23 Teresa Moore RN Specialty Return Agent [facility] 12/17/23 Hot Repairman Relationship Specialty Start Date End Date Joe Tim MD [address] [facility] [address] [place], [place] [address] PCP - General Internal Medicine 11/19/23 Mikala Jones MD [address] [phone] General Surgery 12/16/23 Tin Jose DO [address] [place], [place] [address] Hematology/Oncology 12/17/23 Teresa Moore RN Specialty Return Agent [facility] 12/17/23 Team Status: Active Member Role/Relationship Status Dates Joe Tim MD Primary Care Provider Active Team Status: Inactive Member Role/Relationship Status Dates Joe Tim MD Primary Care Provider Active St art: November 01, 2024 End: November 01, 2024 Joe Tim MD Attending Provider Active Start : November 01, 2024 End: November 01, 2024 Hot Repairman Relationship Specialty Start Date End Date Joe Tim MD [address] [facility] [address] [place], [place] [address] PCP - General Internal Medicine 11/19/23 Mikala Jones MD [address] [phone] General Surgery 12/16/23 Tin Jose DO [address] [place], [place] [address] Hematology/Oncology 12/17/23 Teresa Moore, ALYCIA Specialty Return Agent [facility] 12/17/23 Team Status: Active Member Role/Relationship Status Dates Joe Tim MD Primary Care Provider Active St art: November 11, 2024 Dr. Janet Sullivan MD Emergency Provider Active S tart: November 11, 2024 Dr. Trever de Maico , DO Admit Provider Active Start: November 11, 2024 Dr. Trever Sanchez , Attending Provider Active Start: November 11, 2024 Scheduled Active and Recently Administ ered Medications [...] (Continued by Anesthesia - Provider: Trever Solis APRN.POLYMERIZATION OVEN OPERATOR)1016 (Anesthesia Volume Adjustment - Provider: Trever Solis APRN.POLYMERIZATION OVEN OPERATOR)1104 (Due: Infusion Complete) PRN Medication Order 09/05/2021 [...] is dilated, FOR TOPICAL OPHTHALMIC USE ONLY 09 (Given - Provid er: Mikala Huitron RN)0915 (Given - Provider: Mikala Huitron RN)0920 (Given - Provider: Mikala Huitron RN) Goals (unrecognized section and content) Goals may be documented in a n alternate sectionGoals may be documented in an alternate sectionGoals may be documented in an [...] BE BASED ON THE PRIMARY CLINICAL RECORDS. [facility] [employer], [facility]. provides no warranty or guarantee of the accuracy or completeness of information in this document.
[2024-11-11] MEDS: 0.9% Normal Saline (1000mL) 1,000 ML 70 ML IV ×2 (04:31→18:48)
[2024-11-11] MEDS: Pantoprazole Sodium 40 MG in 0.9% Normal Saline (100mL MB+) 100 ML 330 MG IV ×2 (04:31→20:05)
[2024-11-11] MEDS: 0.9% Saline Lock 10 ML Syringe IV ×3 (04:56→20:13)
[2024-11-11] MEDS: Piperacil/Tazobactam 3.375 GM in 0.9% Normal Saline (50mL MB+) 50 ML IV ×3 (04:57→20:48)
[2024-11-11 06:16] LABS: Hematocrit 31.6 % (37-47); Hemoglobin 10.5 g/dL (12.0-15.0); Immature Granulocytes Count 0.080 X10^3/uL (0.0-0.0); Mean Corp Hgb Conc 33.2 g/dL (32-36); Mean Corpuscular Volume 92.1 fL (81-99); Mean Platelet Vol. 11.6 fl (6.2-12.0); NRBC Flagged by Analyzer 0 % (0-5); POSITIVE DIFFERENTIAL YES; POSITIVE MORPHOLOGY YES; Platelet Count 221 K/mm3 (150-450); RBC Distribution Width CV 17.5 % (11.6-14.6); RBC Distribution Width SD 59.8 fl (35.1-43.9); Red Blood Count 3.43 M/mm3 (4.2-5.4); White Blood Count 12.9 K/mm3 (4.4-11.0)
[2024-11-11 07:09] LABS: Cholesterol 178 mg/dL (<=200); Low Density Lipoprotein Calc. 132 mg/dL; Triglycerides 98 mg/dL; Very Low Density Lipoprotein 20 mg/dL (5-40); cholesterol:hdl ratio screen 6.72
[2024-11-11 07:17] LABS: AST(SGOT) 79 U/L (<=31); Alanine Aminotransfer ALT/SGPT 60 U/L (<=34); Albumin, Serum 3.1 g/dL (3.4-4.8); Alkaline Phosphatase 248 U/L (35-104); Anion Gap 10 (5-15); BUN 16 mg/dL (4-19); BUN/Creat Ratio 21.8 RATIO (10-20); Calcium,Total 9.0 mg/dL (7.6-11.0); Carbon Dioxide 23.3 mmol/L (21.0-32.0); Chloride 104 mmol/L (98-108); Estimated Creatinine Clearance 57.52 ml/min (50-250); Globulin 2.6 g/dL (2.2-4.2); Glucose 114 mg/dL (70-99); Potassium 4.1 mmol/L (3.3-5.1)
[2024-11-11 07:24] LABS: Neutrophil-Band 21 % (0-5); Neutrophil-Segmented 66 % (47-70); Total Cells Counted 100 (MANUAL DIFF)
[2024-11-11 07:27] LABS: Differential Indicated SCAN CRITERIA MET
[2024-11-11 07:28] LABS: Scan Smear per Review Criteria MANUAL DIFF
[2024-11-11 07:38] LABS: Red Cell Morphology NORM C+C NORMAL (NORM C&C)
--- NOTE | 2024-11-11 10:50 | PN.HOSP_ITS ---
Reason for Visit Chief Complaint: Abdominal Pain and Nausea. Objective Data Objective Data Vital Signs: Vital Signs Temp Pulse Resp BP Pulse Ox O2 Del Method O2 Flow Rate 98.1 F 87 16 128/77 H 99 Room Air 2 11/11/24 08:39 11/11/24 08:39 11/11/24 08:39 11/11/24 08:39 11/11/24 08:39 11/11/24 08:39 11/11/24 03:00 Oxygen Flow Rate (L/min) 2 Oxygen Delivery Method Room Air Weight: 149 lb 7.574 oz Body Mass Index (BMI) 22.7 Intake & Output: Intake and Output for Last 24 Hours 11/09/24 11/10/24 11/11/24 23:59 23:59 23:59 Intake Total 1050 / 1050 150 / 150 Balance 1050 / 1050 150 / 150 Lab / Micro Data 11/11/24 05:37 11/11/24 05:37 Labs: Laboratory Results - last 24 hr 11/10/24 17:23: WBC 5.6, RBC 3.63 L, Hgb 11.1 L, Hct 33.8 L, MCV 93.1, MCH 30.6, MCHC 32.8, RDW Std Deviation 59.0 H, RDW Coeff of Adelfo 17.2 H, Plt Count 232, MPV 12.3 H, Immature Gran % (Auto) 0.400, Neut % (Auto) 95.5 H, Lymph % (Auto) 2.3 L , [place] % (Auto) 1.6, Eos % (Auto) 0.0, Baso % (Auto) 0.2, Absolute Neuts (auto) 5.3, Absolute Lymphs (auto) 0.13 L, Nucleated RBC % 0, Differential Comment SCANNED, Platelet Estimate ADEQUATE, Sodium 137, Potassium 3.6, Chloride 102, C arbon Dioxide 20.5 L, Anion Gap 15, BUN 16, Creatinine 0.82, Estim Creat Clear Calc 56.12, Est GFR (MDRD) Non-Af 73, BUN/Creatinine Ratio 19.3, Glucose 101 H, Calcium 9.2, Total Bilirubin 8.75 H 11/10/24 17:23: Total Bilirubin 8.79 H, Direct Bilirubin 6.51 H, AST 76 H 11/10/24 17:23: AST 76 H, ALT 58 H 11/10/24 17:23: ALT 58 H, Alkaline Phosphatase 344 H 11/10/24 17:23: Alkaline Phosphatase 343 H, Total Protein 6.2 11/10/24 17:23: Total Protein 6.2, Albumin 3.3 L 11/10/24 17:23: Albumin 3.3 L, Globulin 2.9 11/10/24 17:23: Globulin 3.0, Albumin/Globulin Ratio 1.1, Lipase 16 11/10/24 17:40: Lactic Acid 3.3 H* 11/10/24 19:00: Urine Color Yellow, Urine Clarity Cloudy, Urine pH 5.0, Ur Specific [place] 1.010, Urine Protein 30 H, Urine Glucose (UA) Normal, Urine Ketones Negative, Urine Occult Blood 10 H, Urine Nitrite Positive H, Urine Bilirubin 6 H, Urine Urobilinogen 4 H, Ur Leukocyte Esterase 25 H, Urine RBC 0-5 SEEN, Urine WBC 0-5 SEEN, Ur Squamous Epith Cells 5-10 SEEN, Urine Bacteria 2+, Urine Mucus 1+ 11/10/24 19:15: Troponin T High Sens 26 H 11/10/24 21:53: Lactic Acid 1.4, Troponin T Hi Sens 2 Hr 26 H 11/10/24 23:39: Magnesium 1.7, Troponin T Hi Sens 4Hr 25 H 11/11/24 05:37: WBC 12.9 H, RBC 3.43 L, Hgb 10.5 L, Hct 31.6 L, MCV 92.1, MCH 30.6, MCHC 33.2, RDW Std Deviation 59.8 H, RDW Coeff of Adelfo 17.5 H, Plt Count 221, MPV 11.6, Immature Gran % (Auto) [employer]EL [employer]SEMBLER, Neut % (Auto) ATOM[employer]EL ASSEMBLER, Lymph % (Auto) ATOM[employer] FUEL ASSEMBLER, [place] % (Auto) ATOMIC FUEL ASSEMBLER, Eos % (Auto) ATOMIC FUEL ASSEMBLER, Baso % (Auto) ATOM[employer] FUEL ASSEMBLER, Absolute Neuts (auto) 11.2 H, Absolute Lymphs (auto) 0.26 L, Total Counted 100, Neutrophils % (Manual) 66, Band Neutrophils % 21 H, Lymphocytes % (Manual) 2 L, Monocytes % (Manual) 9, M etamyelocytes % 2 H, Nucleated RBC % 0, Diff Path Review May foll, Platelet Estimate ADEQUATE, Plt Morphology Comment LARGE, RBC Morphology NORM C+C, Sodium 137, Potassium 4.1, Chloride 104, Carbon Dioxide 23.3, Anion Gap 10, BUN 16, Creatinine 0.73, Estim Creat Clear Calc 57.52, Est GFR (MDRD) Non-Af 83, B UN/Creatinine Ratio 21.8 H, Glucose 114 H, Calcium 9.0, Phosphorus 3.3, Total Bilirubin 8.11 H, AST 79 H, ALT 60 H, Alkaline Phosphatase 248 H, Total Protein 5.7 L, Albumin 3.1 L, Globulin 2.6, Albumin/Globulin Ratio 1.2, Triglycerides 98, Cholesterol 178, LDL Cholesterol, Calc 132, VLDL Cholesterol 20, HDL Cholesterol 27 L, Cholesterol/HDL Ratio 6.72, TSH 0.529 Micro: Microbiology 11/10/24 19:15 Blood Culture (Wb) - Venous Blood Culture - Preliminary 11/10/24 19:10 Blood Culture (Wb) - Venous Blood Culture - Preliminary Radiography Diagnostic Testing: Radiology Impression Abdomen/Pelvis CT 11/10/24 17:30 IMPRESSION: 1. Recent ERCP with interval placement of biliary stent and associated pneumobilia. Increased moderate dilatation of multiple intrahepatic bile ducts. 2. Large cystic lesion abutting and superior to the uterine fundus measuring 9.6 x 10.9 x 9.2 cm. Etiology is unclear but may originate from the left ovary/adnexa. Reading Location: [facility] Chest X-Ray 11/10/24 19:16 IMPRESSION: NO ACUTE FINDINGS. Reading Location: [facility] Physical Exam Narrative Seen and examined Patient was admitted with severe left sided and epigastric abdominal pain yesterday after she had ERCP on 11/09 in [facility] For choledocholithiasis. As per she also had some chills and maybe subjective fever. No fever inpatient. Physical exam General: Alert, Oriented x3, Cooperative HEENT: Atraumatic, PERRLA, EOMI, Normocephalic. Oral: No Gingival or Mucosal Lesions/ Ulcerations Neck: Supple, No JVD, Negative Carotid Bruits Chest wall/Lungs: Air entry diminished in bilateral lung bases. No crepitation/rhonchi Cardiovascular: Regular rate and rhythm, Normal S1,S2, No M/G/R Abdomen: Bowel Sounds Present, Soft, tenderness present in epigastric and left upper quadrant. : No dysuria. No renal angle tenderness. No suprapubic tenderness. Extremities: No edema, Capillary Refill Less than 3 Seconds Skin: No rashes, No breakdown Musculoskeletal: No Tenderness to Palpation of Joints or Extremities Neurological: Cranial nerves II-XII grossly intact, DTR 2+/4. No acute focal neurological deficit. Psych/Mental Status: Normal Affect, Appropriate. Assessment & Plan Assessment/Plan (1) H/O endoscopic retrograde cholangiopancreatography: (2) Hyperbilirubinemia: (3) Transaminitis: (4) Jaundice: (5) Acute cystitis without hematuria: (6) Frontal headache: (7) Nausea: PLAN: Plan 79-year-old female admitted with abdominal pain, nausea. 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 Right cholecystectomy in the past. Had ERCP a day before yesterday on 11/09 at [facility] For jaundice and elevated liver enzymes. Had generalized abdominal pain with worsening mainly on the left side. Nausea but no vomiting. No fever or chills. Headache 1. Suspicion of acute cholangitis: Patient admitted with LUQ/epigastric and mild RUQ pain abdominal pain, subjective fever/chill after ERCP and jaundice. CT showed interval placement of biliary stent, pneumobilia and moderate dilatation of multiple intrahepatic bile ducts. There was additional finding of cystic lesion large. Uterine fundus 9.6 x 10.9 x 9.2 cm Trembly origin from left ovary/adnexa.: Patient admitted in PCU. On IV Zosyn. Pain control. On PPI. Supportive measures with ondansetron. GI consulted. ERCP report reviewed from the patient's position. 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 Stone was retracted and the biliary stent put in. Patient awaiting transfer to [facility]. 2. Obstructive jaundice with mild transaminitis but mainly cholestatic pattern of acute liver injury. History of GB cancer status postcholecystectomy. 11/11: Liver chemistry reviewed. Shows similar AST and ALT, mild direct hyperbilirubinemia, T. bili 8.79, D6.51 shows slight improvement. Alkaline phosphatase shows improvement. 3. UA that was positive for nitrite, LE 25, WBC 0-5 cells with suspicion of UTI- Continue IV piperacillin-tazobactam begun in ER and await culture and sensitivity data. 4. Essential hypertension; on lisinopril - Hold scheduled oral antihypertensives. Give hydralazine IV prn for systolic blood pressure > 160 mmHg. 5. Hyperlipidemia; currently not on treatment - Check Lipid Profile. 6. History of TIA and bilateral carotid atherosclerosis- 7. DVT/GI prophylaxis -enoxaparin 30 mL subcu daily. Pantoprazole 40 mg IV daily. Charges/Coding Visit Charges Inpatient E&M: 87113 Subs Hosp L2
[2024-11-11 11:45] LABS: Prothrombin Time (Protime)PT. 16.8 SECONDS (11.7-14.9)
[2024-11-12 02:45] VITALS: BP 136/69; PULSE 85; RESP 16; TEMP 35.9; O2SAT 98
[2024-11-12 04:58] VITALS: BMI 23.2
[2024-11-12] MEDS: Piperacil/Tazobactam 3.375 GM in 0.9% Normal Saline (50mL MB+) 50 ML IV ×2 (05:00→15:03)
[2024-11-12 05:07] LABS: HEPATITIS B SURFACE AG Negative (Negative); Hep C Antibodies Non Reactive (Non Reactive)
[2024-11-12 07:02] VITALS: O2SAT 93
[2024-11-12 07:42] LABS: Hematocrit 29.9 % (37-47); Hemoglobin 9.9 g/dL (12.0-15.0); Immature Granulocytes Count 0.070 X10^3/uL (0.0-0.0); Mean Corp Hgb Conc 33.1 g/dL (32-36); Mean Corpuscular Volume 92.9 fL (81-99); Mean Platelet Vol. 12.0 fl (6.2-12.0); NRBC Flagged by Analyzer 0 % (0-5); POSITIVE MORPHOLOGY YES; Platelet Count 201 K/mm3 (150-450); RBC Distribution Width CV 17.3 % (11.6-14.6); RBC Distribution Width SD 59.7 fl (35.1-43.9); Red Blood Count 3.22 M/mm3 (4.2-5.4); White Blood Count 8.1 K/mm3 (4.4-11.0)
[2024-11-12 07:43] LABS: Differential Indicated SCAN CRITERIA MET
[2024-11-12 08:14] LABS: AST(SGOT) 63 U/L (<=31); Alanine Aminotransfer ALT/SGPT 48 U/L (<=34); Albumin, Serum 2.6 g/dL (3.4-4.8); Alkaline Phosphatase 204 U/L (35-104); Anion Gap 8 (5-15); BUN 21 mg/dL (4-19); BUN/Creat Ratio 32.5 RATIO (10-20); Bilirubin, Direct 5.37 mg/dL (0.00-0.30); Calcium,Total 8.5 mg/dL (7.6-11.0); Carbon Dioxide 22.3 mmol/L (21.0-32.0); Chloride 108 mmol/L (98-108); Estimated Creatinine Clearance 57.52 ml/min (50-250); Globulin 2.5 g/dL (2.2-4.2); Glucose 76 mg/dL (70-99); Potassium 4.0 mmol/L (3.3-5.1)
[2024-11-12 08:20] LABS: Prothrombin Time (Protime)PT. 17.5 SECONDS (11.7-14.9)
--- NOTE | 2024-11-12 08:42 | PCM.PN.HOSP ---
Reason for Visit Chief Complaint: Abdominal Pain and Nausea. Objective Data Objective Data Vital Signs: Vital Signs Temp Pulse Resp BP Pulse Ox O2 Del Method O2 Flow Rate 96.7 F L 85 16 136/69 H 98 Room Air 2 11/12/24 02:45 11/12/24 02:45 11/12/24 02:45 11/12/24 02:45 11/12/24 02:45 11/12/24 02:45 11/11/24 03:00 Oxygen Flow Rate (L/min) 2 Oxygen Delivery Method Room Air Weight: 152 lb 12.485 oz Body Mass Index (BMI) 23.2 Intake & Output: Intake and Output for Last 24 Hours 11/10/24 11/11/24 11/12/24 23:59 23:59 23:59 Intake Total 1050 / 1050 1299.83 / 1299.83 50 / 50 Balance 1050 / 1050 1299.83 / 1299.83 50 / 50 Lab / Micro Data 11/12/24 06:58 11/12/24 06:58 Labs: Laboratory Results - last 24 hr 11/11/24 05:37: Hepatitis A IgM Ab Negative, Hep Bs Antigen Negative, Hep B Core IgM Ab Negative, Hepatitis C Ab (EIA) Non Reactive, Hep C Ab Comment Comment 11/11/24 11:25: PT 16.8 H, INR 1.3 11/12/24 06:58: WBC 8.1, RBC 3.22 L, Hgb 9.9 L, Hct 29.9 L, MCV 92.9, MCH 30.7, MCHC 33.1, RDW Std Deviation 59.7 H, RDW Coeff of Adelfo 17.3 H, Plt Count 201, MPV 12.0, Immature Gran % (Auto) 0.900, Neut % (Auto) 80.4 H, Lymph % (Auto) 9.0 L, [place] % (Auto) 9.4, Eos % (Auto) 0.2, Baso % (Auto) 0.1, Absolute Neuts (auto) 6.5, Absolute Lymphs (auto) 0.73 L, Nucleated RBC % 0, PT 17.5 H, INR 1.4, Sodium 138, Potassium 4.0, Chloride 108, Carbon Dioxide 22.3, Anion Gap 8, BUN 21 H, Creatinine 0.63 L, Estim Creat Clear Calc 57.52, Est GFR (MDRD) Non-Af 90, BUN/Creatinine Ratio 32.5 H, Glucose 76, Calcium 8.5, Total Bilirubin 6.56 H, Direct Bilirubin 5.37 H, AST 63 H, ALT 48 H, Alkaline Phosphatase 204 H, Total Protein 5.1 L, Albumin 2.6 L, Globulin 2.5 Micro: Microbiology 11/10/24 19:15 Blood Culture (Wb) - Right Wrist Blood Culture - Preliminary Gram negative clemente 11/10/24 19:10 Blood Culture (Wb) - Left Wrist Blood Culture - Preliminary Gram negative clemente Physical Exam Narrative Seen and examined As per nursing staff she has low-grade fever 100.4 Fahrenheit. Tylenol as needed ordered. Abdominal pain is getting better. Patient was admitted with severe left sided and epigastric abdominal pain since 1 day prior to admission after she had ERCP on 11/09 in [facility] For choledocholithiasis. As per she also had some chills and maybe subjective fever. Physical exam General: Alert, Oriented x3, Cooperative HEENT: Atraumatic, PERRLA, EOMI, Normocephalic. Oral: No Gingival or Mucosal Lesions/ Ulcerations Neck: Supple, No JVD, Negative Carotid Bruits Chest wall/Lungs: Air entry diminished in bilateral lung bases. No crepitation/rhonchi Cardiovascular: Regular rate and rhythm, Normal S1,S2, No M/G/R Abdomen: Bowel Sounds Present, Soft, mild tenderness present in epigastric and left upper quadrant. : No dysuria. No renal angle tenderness. No suprapubic tenderness. Extremities: No edema, Capillary Refill Less than 3 Seconds Skin: No rashes, No breakdown Musculoskeletal: No Tenderness to Palpation of Joints or Extremities Neurological: Cranial nerves II-XII grossly intact, DTR 2+/4. No acute focal neurological deficit. Psych/Mental Status: Normal Affect, Appropriate. Assessment & Plan Assessment/Plan (1) H/O endoscopic retrograde cholangiopancreatography: (2) Hyperbilirubinemia: (3) Transaminitis: (4) Jaundice: (5) Acute cystitis without hematuria: (6) Frontal headache: (7) Nausea: PLAN: Plan 79-year-old female admitted with abdominal pain, nausea. 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 Right cholecystectomy in the past. Had ERCP a day before yesterday on 11/09 at [facility] For jaundice and elevated liver enzymes. Had generalized abdominal pain with worsening mainly on the left side. Nausea but no vomiting. No fever or chills. Headache 1. Suspicion of acute cholangitis: Patient admitted with LUQ/epigastric and mild RUQ pain abdominal pain, subjective fever/chill after ERCP and jaundice. CT showed interval placement of biliary stent, pneumobilia and moderate dilatation of multiple intrahepatic bile ducts. There was additional finding of cystic lesion large. Uterine fundus 9.6 x 10.9 x 9.2 cm Trembly origin from left ovary/adnexa.: Patient admitted in PCU. On IV Zosyn. Pain control. On PPI. Supportive measures with ondansetron. GI consulted. ERCP report reviewed from the patient's position. 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 Stone was retracted and the biliary stent put in. Patient awaiting transfer to [facility]. 11/12: GNR bacteremia. ID consult appreciated. Continue IV Zosyn. Transfer plan. Low-grade fever. Blood culture ordered. Tylenol as needed 2. Obstructive jaundice with mild transaminitis but mainly cholestatic pattern of acute liver injury. History of GB cancer status postcholecystectomy. 11/11: Liver chemistry reviewed. Shows similar AST and ALT, mild direct hyperbilirubinemia, T. bili 8.79, D6.51 shows slight improvement. Alkaline phosphatase shows improvement. 11/12: Liver chemistry shows mild improvement in ALT AST and alkaline phosphatase. TB 6.56, DB 5.37. 3. UA that was positive for nitrite, LE 25, WBC 0-5 cells with suspicion of UTI- Continue IV piperacillin-tazobactam begun in ER and await culture and sensitivity data. 4. Essential hypertension; on lisinopril - Hold scheduled oral antihypertensives. Give hydralazine IV prn for systolic blood pressure > 160 mmHg. 5. Hyperlipidemia; currently not on treatment - 6. History of TIA and bilateral carotid atherosclerosis- 7. DVT/GI prophylaxis -enoxaparin 30 mL subcu daily. Pantoprazole 40 mg IV daily. Charges/Coding Visit Charges Inpatient E&M: 74841 Subs Hosp L2
--- NOTE | 2024-11-12 08:48 | PCA ---
THIS US CALLED [facility] AT 0845, THEY STATED HER BED IS LOOKING TO BE ON THEIR ONCOLOGY FLOOR, AND THERE ARE CURRENTLY NO BEDS, BUT TO CALL BACK AT 5-6PM AND THERE WILL BE A BETTER UPDATE.
[2024-11-12 08:59] VITALS: BP 135/69; PULSE 80; RESP 14; TEMP 36.8; O2SAT 98
--- NOTE | 2024-11-12 11:22 | CASEMGMT ---
Tertiary If transfer is recommended, the pt can go to the following hospitals: [facility], [facility], [place], [facility], [facility], [facility], , [place], [facility], [facility], and [place]. Tomas BSN RN CM
--- NOTE | 2024-11-12 12:40 | CON.PCM.ID_ITS ---
Assessment & Plan Assessment/Plan (1) Bacteremia due to Gram-negative bacteria: PLAN: GNR bacteremia s/p ERCP 11/09/24 at [facility]. Transfer planned, feeling better, cont zosyn. Will follow, thank you HPI Consult Data Date of Consult: 11/12/24 HPI Narrative Reason for Consultation: bacteremia HPI Narrative: MARIE BLAIR, is a 79 F who had ERCP at [facility] on 11/09. Next day had acute onset of diffuse abd pain (severe, sharp/cramping) with associated nausea and headache. Pain worsened, came to ED, admitted on zosyn. Feeling much better today. Full ROS performed and neg except as noted above. [facility] Medical History Wears hearing aid Loss of hearing Wears glasses Wears partial dentures Wears dentures Cancer High cholesterol History of TIA (transient ischemic attack) Squamous cell carcinoma in situ Atherosclerosis of both carotid arteries Pure hypercholesterolemia Benign essential HTN Home Medications ?Medication ?Instructions ?Recorded ?Last Taken ?Type lisinopril 20 mg tablet 10 mg PO DAILY BLOOD PRESSUR E 11/14/17 11/10/24 History Allergy/AdvReac Type Severity Reaction Status Date / Time No Known Allergies Allergy Verified 11/10/24 17:08 Family History Mother CVA (cerebral vascular accident) Hypertension Father CAD (coronary artery disease) Hypertension Heart disease Myocardial infarction Surgical History History of cholecystectomy S/P appendectomy History of squamous cell carcinoma excision Social History household members: spouse Smoking Status: Never smoker alcohol intake: never substance use type: does not use additional social history: DOES USE ASPIRIN DOES NOT USE IBUPROFEN Physical Exam Const alert, oriented x3 and no apparent distress General Appearance: cooperative HEENT normocephalic and head/scalp atraumatic Eyes PERRL and EOMs intact bilaterally Neck supple and No nodes Resp normal air movement and clear to auscultation bilaterally Cardio regular rate and regular rhythm GI soft to palpation, non-tender and non-distended Extremity General Extremity: Negative for edema Skin no rashes or lesions noted Skin Narrative: jaundiced Neuro CN's II-XII intact bilaterally Lab / Micro Data Attestation: I reviewed the patient's lab results. 11/12/24 06:58 11/12/24 06:58 Labs: Laboratory Results - last 24 hr 11/11/24 05:37: Hepatitis A IgM Ab Negative, Hep Bs Antigen Negative, Hep B Core IgM Ab Negative, Hepatitis C Ab (EIA) Non Reactive, Hep C Ab Comment Comment 11/12/24 06:58: WBC 8.1, RBC 3.22 L, Hgb 9.9 L, Hct 29.9 L, MCV 92.9, MCH 30.7, MCHC 33.1, RDW Std Deviation 59.7 H, RDW Coeff of Adelfo 17.3 H, Plt Count 201, MPV 12.0, Immature Gran % (Auto) 0.900, Neut % (Auto) 80.4 H, Lymph % (Auto) 9.0 L, [place] % (Auto) 9.4, Eos % (Auto) 0.2, Baso % (Auto) 0.1, Absolute Neuts (auto) 6.5, Absolute Lymphs (auto) 0.73 L, Nucleated RBC % 0, PT 17.5 H, INR 1.4, Sodium 138, Potassium 4.0, Chloride 108, Carbon Dioxide 22.3, Anion Gap 8, BUN 21 H, Creatinine 0.63 L, Estim Creat Clear Calc 57.52, Est GFR (MDRD) Non-Af 90, BUN/Creatinine Ratio 32.5 H, Glucose 76, Calcium 8.5, Total Bilirubin 6.56 H, D irect Bilirubin 5.37 H, AST 63 H, ALT 48 H, Alkaline Phosphatase 204 H, Total Protein 5.1 L, Albumin 2.6 L, Globulin 2.5 Micro: Microbiology 11/10/24 19:00 Urine, Clean Catch Urine Culture - Preliminary Mixed Gram Positive Organisms 11/10/24 19:15 Blood Culture (Wb) - Right Wrist Blood Culture - Preliminary Gram negative clemente 11/10/24 19:10 Blood Culture (Wb) - Left Wrist Blood Culture - Preliminary Gram negative clemente
[2024-11-12 14:50] VITALS: BP 142/65; PULSE 99; RESP 16; TEMP 37.5; O2SAT 97
[2024-11-12] MEDS: 0.9% Saline Lock 10 ML Syringe IV (15:06)
--- NOTE | 2024-11-12 17:42 | NURSING ---
Called in report to ALYCIA Tierney from [facility] at 17:42.
--- NOTE | 2024-11-12 18:40 | DS.PCM_ITS ---
Providers Date of Admission: 11/11/24 Date of Discharge: 11/12/24 Primary Care Physician: Joe Tim MD Consultations 11/12/24 08:42 Consult: Infectious Disease Routine Consulting Provider: Von Cadena Reason for Consult: GNR Bacteremia, cholangitis s/p ERCP EMERGENT Consult: No MD Notified: Yes Date Notified: 11/12/24 Time Notified: 08:42 Method of Notification: Text Reason For Visit: JAUNDICE & ABDOMINAL PAIN AFTER ERCP WITH Diagnosis Discharge Diagnosis (1) H/O endoscopic retrograde cholangiopancreatography: Status: Acute Code(s): Z98.890 - Other specified postprocedural states (2) Hyperbilirubinemia: Status: Acute Code(s): E80.6 - Other disorders of bilirubin metabolism (3) Transaminitis: Status: Acute Code(s): R74.01 - Elevation of levels of liver transaminase levels (4) Jaundice: Status: Acute Code(s): R17 - Unspecified jaundice (5) Acute cystitis without hematuria: Status: Acute Code(s): N30.00 - Acute cystitis without hematuria (6) Frontal headache: Status: Acute Code(s): R51.9 - Headache, unspecified (7) Nausea: Status: Acute Code(s): R11.0 - Nausea Plan 79-year-old female admitted with abdominal pain, nausea. 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 Right cholecystectomy in the past. Had ERCP a day before yesterday on 11/09 at [facility] For jaundice and elevated liver enzymes. Had generalized abdominal pain with worsening mainly on the left side. Nausea but no vomiting. No fever or chills. Headache 1. Suspicion of acute cholangitis: Patient admitted with LUQ/epigastric and mild RUQ pain abdominal pain, subjective fever/chill after ERCP and jaundice. CT showed interval placement of biliary stent, pneumobilia and moderate dilatation of multiple intrahepatic bile ducts. There was additional finding of cystic lesion large. Uterine fundus 9.6 x 10.9 x 9.2 cm Trembly origin from left ovary/adnexa.: Patient admitted in PCU. On IV Zosyn. Pain control. On PPI. Supportive measures with ondansetron. GI consulted. ERCP report reviewed from the patient's position. 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 Stone was retracted and the biliary stent put in. Patient awaiting transfer to [facility]. 11/12: GNR bacteremia. ID consult appreciated. Continue IV Zosyn. Transfer plan. Low-grade fever. Blood culture ordered. Tylenol as needed Patient got the bed in the evening about 5:30 PM. Discharged to [facility] [place]. Transfer paper was signed. 2. Obstructive jaundice with mild transaminitis but mainly cholestatic pattern of acute liver injury. History of GB cancer status postcholecystectomy. 11/11: Liver chemistry reviewed. Shows similar AST and ALT, mild direct hyperbilirubinemia, T. bili 8.79, D6.51 shows slight improvement. Alkaline phosphatase shows improvement. 11/12: Liver chemistry shows mild improvement in ALT AST and alkaline phosphatase. TB 6.56, DB 5.37. 3. UA that was positive for nitrite, LE 25, WBC 0-5 cells with suspicion of UTI- Continue IV piperacillin-tazobactam begun in ER and await culture and sensitivity data. 4. Essential hypertension; on lisinopril - Hold scheduled oral antihypertensives. Give hydralazine IV prn for systolic blood pressure > 160 mmHg. 5. Hyperlipidemia; currently not on treatment - 6. History of TIA and bilateral carotid atherosclerosis- 7. DVT/GI prophylaxis -enoxaparin 30 mL subcu daily. Pantoprazole 40 mg IV daily. Medications at Discharge Home Medications lisinopril 20 mg tablet 10 mg PO DAILY BLOOD PRESSURE 11/14/17 Physical Exam Narrative Please see exam finding on the same day of discharge. Weight / BMI Weight Weight: 152 lb 12.485 oz Body Mass Index (BMI) 23.2 ABG / Lab / Microbiology Data 11/12/24 06:58 11/12/24 06:58 Laboratory: Laboratory Results - last 24 hr 11/12/24 06:58: WBC 8.1, RBC 3.22 L, Hgb 9.9 L, Hct 29.9 L, MCV 92.9, MCH 30.7, MCHC 33.1, RDW Std Deviation 59.7 H, RDW Coeff of Adelfo 17.3 H, Plt Count 201, MPV 12.0, Immature Gran % (Auto) 0.900, Neut % (Auto) 80.4 H, Lymph % (Auto) 9.0 L, [place] % (Auto) 9.4, Eos % (Auto) 0.2, Baso % (Auto) 0.1, Absolute Neuts (auto) 6.5, Absolute Lymphs (auto) 0.73 L, Nucleated RBC % 0, PT 17.5 H, INR 1.4, Sodium 138, Potassium 4.0, Chloride 108, Carbon Dioxide 22.3, Anion Gap 8, BUN 21 H, Creatinine 0.63 L, Estim Creat Clear Calc 57.52, Est GFR (MDRD) Non-Af 90, BUN/Creatinine Ratio 32.5 H, Glucose 76, Calcium 8.5, Total Bilirubin 6.56 H, D irect Bilirubin 5.37 H, AST 63 H, ALT 48 H, Alkaline Phosphatase 204 H, Total Protein 5.1 L, Albumin 2.6 L, Globulin 2.5 Microbiology: Microbiology 11/10/24 19:00 Urine, Clean Catch Urine Culture - Final Mixed Gram Positive Organisms 11/10/24 19:15 Blood Culture (Wb) - Right Wrist Blood Culture - Final Gram negative clemente 11/10/24 19:10 Blood Culture (Wb) - Left Wrist Blood Culture - Final Enterobacter cloacae complex D/C Instructions DC O2, CPAP, BIPAP Needs Home O2 Discharge instructions: No Meaningful Use Info Meaningful Use Meaningful Use Diagnoses (Choose all that apply): None applicable Discharge Plan Admission Admit Date/Time: 11/11/24 02:52 Attending Provider: Rigoberto Reddy Primary Care Provider: Joe Tim Consulting Providers: River Sanchez; Von Cadena Discharge Orders/Prescriptions Prescriptions: No Action lisinopril 20 mg tablet 10 mg PO DAILY Referrals / Follow Up: Joe Tim MD [Primary Care Provider] - Disposition Disposition (needs filled in before D/C Order can be placed): Acute Care Hospital Charges/Coding Visit Charges Inpatient E&M: 35588 Disch Hosp >30min
[2024-11-12 19:45] VITALS: BP 128/58; PULSE 88; RESP 16; TEMP 36.8; O2SAT 93
== END 2024-11-12 20:58 | disposition short-term general hospital (02) | DRG 444 ==
LOC: ED 11-11 02:40 → PCU 11-11 03:45
PROVIDERS: Admitting Provider Internal Medicine; Emergency Provider Student in an Organized Health Care Education/Training Program; PCP Family Medicine; Visit Provider Internal Medicine
DX: K83.09 Other cholangitis (principal); K83.1 Obstruction of bile duct; R78.81 Bacteremia; N30.00 Acute cystitis without hematuria; R17 Unspecified jaundice; I10 Essential (primary) hypertension; K57.10 Diverticulosis of small intestine without perforation or abscess without bleeding; M19.90 Unspecified osteoarthritis, unspecified site; E78.5 Hyperlipidemia, unspecified; E80.6 Other disorders of bilirubin metabolism; R74.01 Elevation of levels of liver transaminase levels; Z86.73 Personal history of transient ischemic attack (TIA), and cerebral infarction without residual deficits; Z90.49 Acquired absence of other specified parts of digestive tract; Z85.00 Personal history of malignant neoplasm of unspecified digestive organ; Z98.890 Other specified postprocedural states; B96.89 Other specified bacterial agents as the cause of diseases classified elsewhere
CPT/HCPCS: 36415; 71046; 74177; 80048; 80053; 80061; 80074; 80076; 81001; 83605; 83690; 83735; 84100; 84443; 84484; 85025; 85610; 87040; 87077; 87086; 87088; 87186; 93005; 97161; 97802; 99285; Q9967; A4216; J2405